=== PATIENT | male | born 1980 | race Two or more races ===

== ENCOUNTER 2016-06-25 11:20 | Emergency (ER) | payer MEDICARE, MEDICAID ==
[~2016-06-25] VITALS: Ht 180.3 cm; Wt 81.5 kg
[~2016-06-25 11:20] MED LIST: BECL8.7A6 IH; OLAN15TA5 PO; SERT50TA12 PO; TRAZ-144 PO
[2016-06-25 11:27] VITALS: BP 100/73
== END 2016-06-25 12:33 | disposition left against medical advice (07) ==
LOC: EMS 11:22
DX: M79.671 Pain in right foot (principal); Z53.21 Procedure and treatment not carried out due to patient leaving prior to being seen by health care provider

== ENCOUNTER 2016-06-27 09:34 | Inpatient (IN) | payer MEDICARE, MEDICAID ==
[~2016-06-27] VITALS: Ht 179.1 cm; Wt 82.1 kg
[2016-06-27 09:41] VITALS: BP 148/81
[2016-06-27] MEDS ORDERED: ZOLPIDEM TARTRATE 10 MG TABLET PO PRN (10:30)
[2016-06-27] MEDS ORDERED: OLANZapine 5 MG RAPDIS TABLET PO PRN (10:30)
[2016-06-27] MEDS ORDERED: OLAN5Z PO (10:40)
[2016-06-27] MEDS ORDERED: TRAZ-144 PO (10:40)
[2016-06-27] MEDS ORDERED: SERT50TA12 PO (10:40)
[2016-06-27] MEDS: LORazepam 2 MG TABLET PO PRN ×2 (11:10→15:52)
[2016-06-27] MEDS: SERTRALINE HCL 50 MG TABLET PO SCH (11:10)
[2016-06-27] MEDS: NICOTINE 14 MG/24 HOUR PATCH TD SCH (15:09)
[2016-06-27 15:50] VITALS: BP 114/75
[2016-06-27] MEDS: ALBUTEROL SULFATE HFA 90 MCG/PUFF 8 GM INHALER IH PRN (15:57)
[2016-06-27 16:05] VITALS: BP 114/75
[2016-06-27] MEDS: TraZODone HCL 50 MG TABLET PO SCH (20:36)
[2016-06-27] MEDS: OLANZapine 5 MG RAPDIS TABLET PO SCH (20:36)
[2016-06-27] MEDS ORDERED: OLANZapine 5 MG RAPDIS TABLET PO SCH (21:00)
[2016-06-28] MEDS ORDERED: -PHARMACY VACCINE NOTE- MISC ONE ×2 (04:30)
[2016-06-28 07:10] VITALS: BP 105/63
[2016-06-28 07:52] LABS: BASOPHILS % (AUTO) 0.3 % (0.0-2.0); EOSINOPHILS % (AUTO) 3.5 % (1.0-6.0); HEMATOCRIT 45.2 % (41-53); LYMPHOCYTES # (AUTO) 2.3 K/uL (1.0-4.8); LYMPHOCYTES % (AUTO) 20.3 % (22.0-44.0); MEAN CORPUSCULAR HEMOGLOBIN 30.3 pg (26.0-34.0); MEAN CORPUSCULAR HGB CONC 33.1 G/dL (31.0-37.0); MEAN CORPUSCULAR VOLUME 92 fL (80-100); MONOCYTES # (AUTO) 0.7 K/uL (0.1-1.0); MONOCYTES % (AUTO) 5.8 % (2.0-9.0); NEUTROPHILS # (AUTO) 7.9 K/uL (1.8-7.7); NEUTROPHILS % (AUTO) 70.1 % (40.0-70.0); PLATELET COUNT (AUTO) 325 K/uL (150-450); RED BLOOD CELL COUNT(AUTO) 4.94 MIL/uL (4.50-5.90); RED CELL DISTRIBUTION WIDTH 13.4 % (11.5-14.5); WHITE BLOOD COUNT (AUTO) 11.2 K/uL (4.5-11.0)
[2016-06-28 08:13] LABS: ALANINE AMINOTRANSFERASE 20 U/L (12-78); ALBUMIN 3.5 g/dL (3.4-5.0); ANION GAP 8 mmol/L (8-16); ASPARTATE AMINOTRANSFERASE 13 U/L (15-37); BILIRUBIN,TOTAL 0.3 mg/dL (0.1-1.0); CALCIUM, TOTAL 8.7 mg/dL (8.8-10.5); CARBON DIOXIDE 28 mmol/L (22-29); CHLORIDE 104 mmol/L (98-107); CREATININE 0.79 mg/dL (0.60-1.30); GLOMERULAR FILTR. RATE CALC > 60 mL/min (>60); SODIUM SERUM 140 mmol/L (136-145); TOTAL PROTEIN, SERUM 6.6 g/dL (6.4-8.2); UREA NITROGEN, BLOOD 6 mg/dL (7-18)
[2016-06-28] MEDS ORDERED: ONDANSETRON HCL 4 MG TABLET PO PRN (08:30)
[2016-06-28] MEDS ORDERED: LOPERAMIDE HCL 2 MG CAPSULE PO PRN (08:30)
[2016-06-28] MEDS ORDERED: ACETAMINOPHEN 325 MG TABLET PO PRN (08:30)
[2016-06-28] MEDS ORDERED: PETROLATUM,WHITE 71 GM JELLY TP PRN (08:30)
[2016-06-28] MEDS ORDERED: MAG HYDROX/AL HYDROX/SIMETH ES 30 ML SUSPENSION UDCUP PO PRN (08:30)
[2016-06-28] MEDS ORDERED: BENZOCAINE/MENTHOL LOZENGE MM PRN (08:30)
[2016-06-28] MEDS ORDERED: CloNIDine HCL 0.1 MG TABLET PO PRN (08:30)
[2016-06-28] MEDS ORDERED: BACITRACIN 28.4 GM OINTMENT TP PRN (08:30)
[2016-06-28] MEDS ORDERED: MAGNESIUM HYDROXIDE SUSPENSION 30 ML UDCUP PO PRN (08:30)
[2016-06-28] MEDS ORDERED: IBUPROFEN 600 MG TABLET PO PRN (08:30)
[2016-06-28 08:38] VITALS: BP 104/60
[2016-06-28] MEDS: BECLOMETHASONE DIPR 40 MCG/PUFF 8.7 GM INHALER IH SCH ×2 (09:00→17:06)
[2016-06-28] MEDS: NICOTINE 14 MG/24 HOUR PATCH TD SCH (09:27)
[2016-06-28] MEDS: SERTRALINE HCL 50 MG TABLET PO SCH (09:27)
[2016-06-28 09:32] LABS: APPEARANCE,URINE CLEAR (CLEAR); GLUCOSE, URINE (UA) NEGATIVE (NEGATIVE); KETONES,URINE NEGATIVE (NEGATIVE); LEUKOCYTE ESTERASE ,URINE NEGATIVE (NEGATIVE); OCCULT BLOOD,URINE NEGATIVE (NEGATIVE); PH,URINE 7.5 (5.0-8.0); PROTEIN,URINE NEGATIVE (NEGATIVE)
[2016-06-28] MEDS: CHOLECALCIFEROL (VIT D3) 1,000 UNITS TABLET PO SCH (09:33)
[2016-06-28 09:38] LABS: ADD UA MICROSCOPIC NO
[2016-06-28 16:14] VITALS: BP 127/66
[2016-06-28] MEDS: TraZODone HCL 50 MG TABLET PO SCH (20:51)
[2016-06-28] MEDS: OLANZapine 5 MG RAPDIS TABLET PO SCH (20:51)
[2016-06-29 07:08] VITALS: BP 105/66
[2016-06-29 08:37] VITALS: BP 101/62
[2016-06-29] MEDS: SERTRALINE HCL 50 MG TABLET PO SCH (09:57)
[2016-06-29] MEDS: CHOLECALCIFEROL (VIT D3) 1,000 UNITS TABLET PO SCH (09:57)
[2016-06-29] MEDS: BECLOMETHASONE DIPR 40 MCG/PUFF 8.7 GM INHALER IH SCH ×2 (09:57→17:05)
[2016-06-29] MEDS: NICOTINE 14 MG/24 HOUR PATCH TD SCH (10:08)
[2016-06-29 16:12] VITALS: BP 107/57
[2016-06-29] MEDS: TraZODone HCL 50 MG TABLET PO SCH (20:51)
[2016-06-29] MEDS: OLANZapine 5 MG RAPDIS TABLET PO SCH (20:52)
[2016-06-30 05:54] VITALS: BP 101/65
[2016-06-30 09:28] VITALS: BP 96/60
[2016-06-30] MEDS: NICOTINE 14 MG/24 HOUR PATCH TD SCH (09:35)
[2016-06-30] MEDS: SERTRALINE HCL 50 MG TABLET PO SCH (09:35)
[2016-06-30] MEDS: BECLOMETHASONE DIPR 40 MCG/PUFF 8.7 GM INHALER IH SCH ×2 (09:35→16:25)
[2016-06-30] MEDS: CHOLECALCIFEROL (VIT D3) 1,000 UNITS TABLET PO SCH (09:35)
[2016-06-30] MEDS: ALBUTEROL SULFATE HFA 90 MCG/PUFF 8 GM INHALER IH PRN (11:20)
[2016-06-30 16:20] VITALS: BP 117/84
[2016-06-30 17:37] VITALS: BP 100/65
[2016-06-30] MEDS: TraZODone HCL 50 MG TABLET PO SCH (20:17)
[2016-06-30] MEDS: OLANZapine 5 MG RAPDIS TABLET PO SCH (20:17)
[2016-07-01 03:05] VITALS: BP 105/61
[2016-07-01 08:28] VITALS: BP 104/65
[2016-07-01] MEDS: CHOLECALCIFEROL (VIT D3) 1,000 UNITS TABLET PO SCH (09:43)
[2016-07-01] MEDS: BECLOMETHASONE DIPR 40 MCG/PUFF 8.7 GM INHALER IH SCH (09:43)
[2016-07-01] MEDS: SERTRALINE HCL 50 MG TABLET PO SCH (09:43)
[2016-07-01] MEDS: NICOTINE 14 MG/24 HOUR PATCH TD SCH (09:47)
== END 2016-07-01 10:10 | disposition home or self-care (01) | DRG 885 ==
LOC: B2S 10:26
DX: F25.1 Schizoaffective disorder, depressive type (principal); R45.851 Suicidal ideations; J45.909 Unspecified asthma, uncomplicated; J44.9 Chronic obstructive pulmonary disease, unspecified; K21.9 Gastro-esophageal reflux disease without esophagitis; K59.00 Constipation, unspecified; E55.9 Vitamin D deficiency, unspecified; F15.10 Other stimulant abuse, uncomplicated; F17.200 Nicotine dependence, unspecified, uncomplicated; Z71.51 Drug abuse counseling and surveillance of drug abuser; Z71.6 Tobacco abuse counseling; Z91.5 Personal history of self-harm
CPT/HCPCS: 80307; 87081; J3535

== ENCOUNTER 2016-07-28 08:57 | Inpatient (IN) | payer MEDICARE, MEDICAID ==
[~2016-07-28] VITALS: Ht 177.8 cm; Wt 82.6 kg
[2016-07-28 11:43] VITALS: BP 119/68
[2016-07-28] MEDS ORDERED: HALOPERIDOL 5 MG TABLET PO PRN (13:15)
[2016-07-28] MEDS ORDERED: ZOLPIDEM TARTRATE 10 MG TABLET PO PRN (13:15)
[2016-07-28] MEDS ORDERED: OLAN5Z PO (13:40)
[2016-07-28] MEDS ORDERED: -PHARMACY VACCINE NOTE- MISC ONE ×2 (13:45)
[2016-07-28 14:39] VITALS: BP 106/66
[2016-07-28] MEDS: LORazepam 2 MG TABLET PO PRN (14:46)
[2016-07-28 16:09] VITALS: BP 112/60
[2016-07-28] MEDS: TraZODone HCL 50 MG TABLET PO SCH (20:32)
[2016-07-28] MEDS ORDERED: OLANZapine 5 MG RAPDIS TABLET PO SCH (21:00)
[2016-07-29] VITALS: BP 101/71
[2016-07-29 07:36] LABS: BASOPHILS # (AUTO) 0.04 K/uL (0.00-0.20); BASOPHILS % (AUTO) 0.4 % (0.0-2.0); EOSINOPHILS # (AUTO) 0.24 K/uL (0.00-0.70); EOSINOPHILS % (AUTO) 2.46 % (1.0-6.0); HEMATOCRIT 42.9 % (41-53); HEMOGLOBIN 14.6 g/dL (13.5-17.5); LYMPHOCYTES # (AUTO) 2.1 K/uL (1.0-4.8); LYMPHOCYTES % (AUTO) 21.2 % (22.0-44.0); MEAN CORPUSCULAR HEMOGLOBIN 30.7 pg (26.0-34.0); MEAN CORPUSCULAR HGB CONC 34.1 G/dL (31.0-37.0); MEAN CORPUSCULAR VOLUME 90 fL (80-100); MONOCYTES # (AUTO) 0.7 K/uL (0.1-1.0); MONOCYTES % (AUTO) 7.2 % (2.0-9.0); NEUTROPHILS # (AUTO) 6.8 K/uL (1.8-7.7); NEUTROPHILS % (AUTO) 68.8 % (40.0-70.0); PLATELET COUNT (AUTO) 304 K/uL (150-450); RED BLOOD CELL COUNT(AUTO) 4.76 MIL/uL (4.50-5.90); RED CELL DISTRIBUTION WIDTH 13.5 % (11.5-14.5); WHITE BLOOD COUNT (AUTO) 9.9 K/uL (4.5-11.0)
[2016-07-29 08:01] VITALS: BP 108/68
[2016-07-29 08:17] LABS: ALANINE AMINOTRANSFERASE 20 U/L (12-78); ALBUMIN 3.3 g/dL (3.4-5.0); ANION GAP 8 mmol/L (8-16); ASPARTATE AMINOTRANSFERASE 15 U/L (15-37); BILIRUBIN,TOTAL 0.4 mg/dL (0.1-1.0); CALCIUM, TOTAL 8.6 mg/dL (8.8-10.5); CARBON DIOXIDE 27 mmol/L (22-29); CHLORIDE 107 mmol/L (98-107); CHOL/HDL RATIO 3.4 (4.2-7.3); CREATININE 0.84 mg/dL (0.60-1.30); GLOMERULAR FILTR. RATE CALC > 60 mL/min (>60); POTASSIUM 3.9 mmol/L (3.5-5.1); SODIUM SERUM 142 mmol/L (136-145); TOTAL PROTEIN, SERUM 6.3 g/dL (6.4-8.2); UREA NITROGEN, BLOOD 7 mg/dL (7-18)
[2016-07-29] MEDS: SERTRALINE HCL 50 MG TABLET PO SCH (09:20)
[2016-07-29 16:12] VITALS: BP 102/65
[2016-07-29] MEDS: OLANZapine 7.5 MG TABLET PO SCH (20:40)
[2016-07-29] MEDS: TraZODone HCL 50 MG TABLET PO SCH (20:40)
[2016-07-30 00:29] VITALS: BP 99/60
[2016-07-30 08:24] VITALS: BP 100/59
[2016-07-30] MEDS: SERTRALINE HCL 50 MG TABLET PO SCH (09:17)
[2016-07-30 16:49] VITALS: BP 105/64
[2016-07-30] MEDS: OLANZapine 7.5 MG TABLET PO SCH (20:39)
[2016-07-30] MEDS: TraZODone HCL 50 MG TABLET PO SCH (20:39)
[2016-07-31 05:19] VITALS: BP 111/72
[2016-07-31 08:27] VITALS: BP 100/62
[2016-07-31] MEDS: SERTRALINE HCL 50 MG TABLET PO SCH (09:28)
[2016-07-31] MEDS: ALBUTEROL SULFATE HFA 90 MCG/PUFF 8 GM INHALER IH PRN (15:54)
[2016-07-31 16:17] VITALS: BP 113/65
[2016-07-31] MEDS: TraZODone HCL 50 MG TABLET PO SCH (20:36)
[2016-07-31] MEDS: OLANZapine 7.5 MG TABLET PO SCH (20:36)
[2016-08-01 06:01] VITALS: BP 106/60
[2016-08-01 08:17] VITALS: BP 100/60
[2016-08-01] MEDS: NICOTINE 21 MG/24 HOUR PATCH TD SCH (09:10)
[2016-08-01] MEDS: SERTRALINE HCL 50 MG TABLET PO SCH (09:10)
[2016-08-01] MEDS: ALBUTEROL SULFATE HFA 90 MCG/PUFF 8 GM INHALER IH PRN (13:08)
[2016-08-01 16:11] VITALS: BP 107/62
[2016-08-01] MEDS: OLANZapine 7.5 MG TABLET PO SCH (20:36)
[2016-08-01] MEDS: TraZODone HCL 50 MG TABLET PO SCH (20:36)
[2016-08-02 00:21] VITALS: BP 105/67
[2016-08-02 08:06] VITALS: BP 100/60
[2016-08-02] MEDS: SERTRALINE HCL 50 MG TABLET PO SCH (09:12)
[2016-08-02] MEDS: NICOTINE 21 MG/24 HOUR PATCH TD SCH (09:13)
[2016-08-02] MEDS: LORazepam 2 MG TABLET PO PRN (14:06)
[2016-08-02 16:07] VITALS: BP 114/73
[2016-08-02] MEDS: OLANZapine 7.5 MG TABLET PO SCH (20:35)
[2016-08-02] MEDS: TraZODone HCL 50 MG TABLET PO SCH (20:35)
[2016-08-03 00:42] VITALS: BP 108/61
[2016-08-03] MEDS ORDERED: OLAN7.5T2 PO (03:47)
[2016-08-03] MEDS ORDERED: NICO21T TD ×2 (05:40→05:41)
[2016-08-03] MEDS ORDERED: ALBU8HFA4 IH (05:46)
== END 2016-08-03 06:35 | disposition home or self-care (01) | DRG 885 ==
LOC: B2X 12:30 → EDSTATUS 13:35
DX: F25.1 Schizoaffective disorder, depressive type (principal); R45.851 Suicidal ideations; J45.909 Unspecified asthma, uncomplicated; L72.9 Follicular cyst of the skin and subcutaneous tissue, unspecified; F15.90 Other stimulant use, unspecified, uncomplicated; Z71.51 Drug abuse counseling and surveillance of drug abuser; Z91.5 Personal history of self-harm
CPT/HCPCS: 84439; 84443; 87081; J3535

== ENCOUNTER 2016-09-19 19:15 | Inpatient (IN) | payer MEDICARE, MEDICAID ==
[~2016-09-19] VITALS: Ht 177.8 cm; Wt 90.1 kg
[~2016-09-19 19:15] MED LIST changes: +ALBU8HFA4 IH; -BECL8.7A6 IH; +NICO21T TD; -OLAN15TA5 PO; +OLAN7.5T2 PO
[2016-09-19] MEDS ORDERED: ZOLPIDEM TARTRATE 10 MG TABLET PO PRN (20:30)
[2016-09-19] MEDS ORDERED: LORazepam 2 MG TABLET PO PRN (20:30)
[2016-09-19] MEDS ORDERED: HALOPERIDOL 5 MG TABLET PO PRN (20:30)
[2016-09-19 21:18] VITALS: BP 110/65
[2016-09-20 06:00] VITALS: BP 108/61
[2016-09-20 08:31] LABS: BASOPHILS # (AUTO) 0.05 K/uL (0.00-0.20); BASOPHILS % (AUTO) 0.4 % (0.0-2.0); EOSINOPHILS # (AUTO) 0.58 K/uL (0.00-0.70); EOSINOPHILS % (AUTO) 4.79 % (1.0-6.0); HEMOGLOBIN 13.9 g/dL (13.5-17.5); LYMPHOCYTES # (AUTO) 2.3 K/uL (1.0-4.8); LYMPHOCYTES % (AUTO) 19.2 % (22.0-44.0); MEAN CORPUSCULAR HEMOGLOBIN 30.2 pg (26.0-34.0); MEAN CORPUSCULAR VOLUME 91 fL (80-100); MONOCYTES # (AUTO) 1.1 K/uL (0.1-1.0); MONOCYTES % (AUTO) 8.6 % (2.0-9.0); NEUTROPHILS # (AUTO) 8.1 K/uL (1.8-7.7); PLATELET COUNT (AUTO) 302 K/uL (150-450); RED CELL DISTRIBUTION WIDTH 13.8 % (11.5-14.5); WHITE BLOOD COUNT (AUTO) 12.2 K/uL (4.5-11.0)
[2016-09-20 09:17] LABS: HEMOGLOBIN A1C 5.8 % (4.5-6.2)
[2016-09-20] MEDS: NICOTINE 21 MG/24 HOUR PATCH TD SCH (09:57)
[2016-09-20 10:11] LABS: ALANINE AMINOTRANSFERASE 25 U/L (12-78); ALBUMIN 3.1 g/dL (3.4-5.0); ANION GAP 6 mmol/L (8-16); ASPARTATE AMINOTRANSFERASE 13 U/L (15-37); BILIRUBIN,TOTAL 0.3 mg/dL (0.1-1.0); CALCIUM, TOTAL 8.3 mg/dL (8.8-10.5); CARBON DIOXIDE 29 mmol/L (22-29); CHLORIDE 108 mmol/L (98-107); CHOL/HDL RATIO 4.1 (4.2-7.3); CREATININE 0.72 mg/dL (0.60-1.30); GLOMERULAR FILTR. RATE CALC > 60 mL/min (>60); POTASSIUM 4.4 mmol/L (3.5-5.1); SODIUM SERUM 143 mmol/L (136-145); THYROID STIMULATING HORMONE 0.76 uIU/mL (0.36-3.74); TOTAL PROTEIN, SERUM 5.7 g/dL (6.4-8.2); UREA NITROGEN, BLOOD 10 mg/dL (7-18)
[2016-09-20] MEDS: SERTRALINE HCL 50 MG TABLET PO SCH (10:12)
[2016-09-20 13:54] VITALS: BP 98/59
[2016-09-20 16:19] VITALS: BP 101/59
[2016-09-20] MEDS: TraZODone HCL 50 MG TABLET PO SCH (20:02)
[2016-09-20] MEDS: OLANZapine 7.5 MG TABLET PO SCH (20:03)
[2016-09-20] MEDS ORDERED: ALBUTEROL SULFATE HFA 90 MCG/PUFF 8 GM INHALER IH PRN (20:30)
[2016-09-21 05:56] VITALS: BP 102/62
[2016-09-21] MEDS: ALBUTEROL SULFATE HFA 90 MCG/PUFF 8 GM INHALER IH PRN ×2 (06:15→16:13)
[2016-09-21 08:26] VITALS: BP 103/60
[2016-09-21] MEDS ORDERED: OLANZAPINE PAMOATE 405 MG/2.7 ML VIAL IM SCH (09:00)
[2016-09-21] MEDS: SERTRALINE HCL 50 MG TABLET PO SCH (09:41)
[2016-09-21] MEDS: NICOTINE 21 MG/24 HOUR PATCH TD SCH (09:41)
[2016-09-21 16:15] VITALS: BP 128/75
[2016-09-21] MEDS: TraZODone HCL 50 MG TABLET PO SCH (20:36)
[2016-09-21] MEDS: OLANZapine 7.5 MG TABLET PO SCH (20:36)
[2016-09-22 00:12] VITALS: BP 103/62
[2016-09-22 08:55] VITALS: BP 104/67
[2016-09-22] MEDS: NICOTINE 21 MG/24 HOUR PATCH TD SCH (09:13)
[2016-09-22] MEDS: SERTRALINE HCL 50 MG TABLET PO SCH (09:13)
[2016-09-22] MEDS: ALBUTEROL SULFATE HFA 90 MCG/PUFF 8 GM INHALER IH PRN (15:49)
[2016-09-22 16:02] VITALS: BP 105/65
[2016-09-22] MEDS: TraZODone HCL 50 MG TABLET PO SCH (20:44)
[2016-09-22] MEDS: OLANZapine 7.5 MG TABLET PO SCH (20:44)
[2016-09-23 00:43] VITALS: BP 104/64
[2016-09-23 08:20] VITALS: BP 114/72
[2016-09-23] MEDS: NICOTINE 21 MG/24 HOUR PATCH TD SCH (08:26)
[2016-09-23] MEDS: SERTRALINE HCL 50 MG TABLET PO SCH (08:26)
== END 2016-09-23 09:45 | disposition home or self-care (01) | DRG 885 ==
LOC: B2X 20:20 → EDSTATUS 20:26
DX: F25.1 Schizoaffective disorder, depressive type (principal); R45.851 Suicidal ideations; E46 Unspecified protein-calorie malnutrition; J45.909 Unspecified asthma, uncomplicated; F15.10 Other stimulant abuse, uncomplicated; F14.10 Cocaine abuse, uncomplicated; F12.10 Cannabis abuse, uncomplicated; F19.10 Other psychoactive substance abuse, uncomplicated; Z79.899 Other long term (current) drug therapy; Z71.51 Drug abuse counseling and surveillance of drug abuser; Z91.5 Personal history of self-harm; Z59.0 Homelessness; Z68.28 Body mass index [BMI] 28.0-28.9, adult
CPT/HCPCS: 83036; 84439; 84443; J3535

== ENCOUNTER 2016-09-27 19:19 | Inpatient (IN) | payer MEDICARE, MEDICAID ==
[~2016-09-27] VITALS: Ht 177.8 cm; Wt 84.5 kg
[~2016-09-27 19:19] MED LIST changes: -NICO21T TD
[2016-09-27 19:57] VITALS: BP 106/52
[2016-09-27] MEDS ORDERED: HALOPERIDOL 5 MG TABLET PO PRN (20:15)
[2016-09-27] MEDS ORDERED: ZOLPIDEM TARTRATE 10 MG TABLET PO PRN (20:15)
[2016-09-27] MEDS ORDERED: LORazepam 2 MG TABLET PO PRN (20:15)
[2016-09-27] MEDS: TraZODone HCL 50 MG TABLET PO SCH (21:03)
[2016-09-27] MEDS: OLANZapine 7.5 MG TABLET PO SCH (21:03)
[2016-09-27] MEDS ORDERED: ACETAMINOPHEN 325 MG TABLET PO PRN (21:15)
[2016-09-27] MEDS ORDERED: IBUPROFEN 400 MG TABLET PO PRN (21:15)
[2016-09-27 21:28] VITALS: BP 110/72
[2016-09-28] VITALS: BP 112/69
[2016-09-28 07:39] LABS: BASOPHILS % (AUTO) 0.4 % (0.0-2.0); EOSINOPHILS % (AUTO) 3.6 % (1.0-6.0); HEMATOCRIT 41.5 % (41-53); HEMOGLOBIN 13.6 g/dL (13.5-17.5); LYMPHOCYTES # (AUTO) 1.9 K/uL (1.0-4.8); LYMPHOCYTES % (AUTO) 19.6 % (22.0-44.0); MEAN CORPUSCULAR HEMOGLOBIN 29.7 pg (26.0-34.0); MEAN CORPUSCULAR HGB CONC 32.8 G/dL (31.0-37.0); MEAN CORPUSCULAR VOLUME 90 fL (80-100); MONOCYTES % (AUTO) 9.6 % (2.0-9.0); NEUTROPHILS # (AUTO) 6.6 K/uL (1.8-7.7); NEUTROPHILS % (AUTO) 66.8 % (40.0-70.0); PLATELET COUNT (AUTO) 299 K/uL (150-450); RED BLOOD CELL COUNT(AUTO) 4.59 MIL/uL (4.50-5.90); RED CELL DISTRIBUTION WIDTH 13.4 % (11.5-14.5); WHITE BLOOD COUNT (AUTO) 9.9 K/uL (4.5-11.0)
[2016-09-28 07:57] LABS: ALANINE AMINOTRANSFERASE 23 U/L (12-78); ALBUMIN 3.3 g/dL (3.4-5.0); ANION GAP 11 mmol/L (8-16); ASPARTATE AMINOTRANSFERASE 17 U/L (15-37); BILIRUBIN,TOTAL 0.5 mg/dL (0.1-1.0); CALCIUM, TOTAL 8.7 mg/dL (8.8-10.5); CARBON DIOXIDE 25 mmol/L (22-29); CHLORIDE 106 mmol/L (98-107); CREATININE 0.82 mg/dL (0.60-1.30); GLOMERULAR FILTR. RATE CALC > 60 mL/min (>60); POTASSIUM 3.8 mmol/L (3.5-5.1); SODIUM SERUM 142 mmol/L (136-145); TOTAL PROTEIN, SERUM 6.2 g/dL (6.4-8.2); UREA NITROGEN, BLOOD 10 mg/dL (7-18)
[2016-09-28 08:17] VITALS: BP 86/59
[2016-09-28] MEDS: SERTRALINE HCL 50 MG TABLET PO SCH (09:18)
[2016-09-28] MEDS: NICOTINE 21 MG/24 HOUR PATCH TD SCH (09:18)
[2016-09-28 09:25] LABS: ADD UA MICROSCOPIC NO; APPEARANCE,URINE CLOUDY (CLEAR); GLUCOSE, URINE (UA) NEGATIVE (NEGATIVE); KETONES,URINE TRACE mg/dL (NEGATIVE); LEUKOCYTE ESTERASE ,URINE NEGATIVE (NEGATIVE); OCCULT BLOOD,URINE NEGATIVE (NEGATIVE); PROTEIN,URINE NEGATIVE (NEGATIVE)
[2016-09-28 14:53] VITALS: BP 93/55
[2016-09-28 16:42] VITALS: BP 100/65
[2016-09-28] MEDS: TraZODone HCL 50 MG TABLET PO SCH (20:17)
[2016-09-28] MEDS: OLANZapine 7.5 MG TABLET PO SCH (20:17)
[2016-09-29 02:16] VITALS: BP 105/69
[2016-09-29 08:24] VITALS: BP 91/50
[2016-09-29] MEDS: SERTRALINE HCL 50 MG TABLET PO SCH (08:36)
[2016-09-29] MEDS: NICOTINE 21 MG/24 HOUR PATCH TD SCH (08:37)
[2016-09-29 16:06] VITALS: BP 90/59
[2016-09-29] MEDS: ALBUTEROL SULFATE HFA 90 MCG/PUFF 8 GM INHALER IH PRN (16:54)
[2016-09-29] MEDS: TraZODone HCL 50 MG TABLET PO SCH (20:32)
[2016-09-29] MEDS: OLANZapine 7.5 MG TABLET PO SCH (20:32)
[2016-09-30 08:10] VITALS: BP 109/66
[2016-09-30] MEDS: NICOTINE 21 MG/24 HOUR PATCH TD SCH (08:19)
[2016-09-30] MEDS: SERTRALINE HCL 50 MG TABLET PO SCH (08:19)
[2016-09-30 09:00] VITALS: BP 112/68
[2016-09-30 16:00] VITALS: BP 108/67
[2016-09-30] MEDS: OLANZapine 7.5 MG TABLET PO SCH (20:26)
[2016-09-30] MEDS: TraZODone HCL 50 MG TABLET PO SCH (20:26)
[2016-10-01 00:40] VITALS: BP 101/61
[2016-10-01 08:20] VITALS: BP 129/74
[2016-10-01] MEDS: NICOTINE 21 MG/24 HOUR PATCH TD SCH (08:33)
[2016-10-01] MEDS: SERTRALINE HCL 50 MG TABLET PO SCH (08:33)
[2016-10-01 16:34] VITALS: BP 109/64
[2016-10-01] MEDS: TraZODone HCL 50 MG TABLET PO SCH (20:48)
[2016-10-01] MEDS: OLANZapine 7.5 MG TABLET PO SCH (20:48)
[2016-10-02 00:55] VITALS: BP 97/60
[2016-10-02 08:11] VITALS: BP 107/60
[2016-10-02] MEDS: SERTRALINE HCL 50 MG TABLET PO SCH (08:41)
[2016-10-02] MEDS: NICOTINE 21 MG/24 HOUR PATCH TD SCH (08:41)
[2016-10-02] MEDS: ALBUTEROL SULFATE HFA 90 MCG/PUFF 8 GM INHALER IH PRN (16:07)
[2016-10-02 16:16] VITALS: BP 102/59
[2016-10-02] MEDS: TraZODone HCL 50 MG TABLET PO SCH (21:00)
[2016-10-02] MEDS: OLANZapine 7.5 MG TABLET PO SCH (21:00)
[2016-10-03 00:20] VITALS: BP 112/64
[2016-10-03] MEDS: SERTRALINE HCL 50 MG TABLET PO SCH (08:34)
[2016-10-03] MEDS: NICOTINE 21 MG/24 HOUR PATCH TD SCH (08:34)
[2016-10-03 08:36] VITALS: BP 104/60
[2016-10-03] MEDS: ALBUTEROL SULFATE HFA 90 MCG/PUFF 8 GM INHALER IH PRN (15:47)
[2016-10-03 16:08] VITALS: BP 124/60
[2016-10-03] MEDS: TraZODone HCL 50 MG TABLET PO SCH (20:44)
[2016-10-03] MEDS: OLANZapine 7.5 MG TABLET PO SCH (20:44)
[2016-10-04 00:38] VITALS: BP 125/69
[2016-10-04 08:36] VITALS: BP 103/65
[2016-10-04] MEDS: SERTRALINE HCL 50 MG TABLET PO SCH (08:46)
[2016-10-04] MEDS: NICOTINE 21 MG/24 HOUR PATCH TD SCH (08:47)
[2016-10-04] MEDS: ALBUTEROL SULFATE HFA 90 MCG/PUFF 8 GM INHALER IH PRN (09:23)
== END 2016-10-04 20:07 | disposition home or self-care (01) | DRG 885 ==
LOC: B2X 20:07 → EDSTATUS 20:08
PROC: GZHZZZZ Group Psychotherapy (ICD-10-PCS; principal; 2016-09-28)
DX: F25.1 Schizoaffective disorder, depressive type (principal); R45.851 Suicidal ideations; F15.90 Other stimulant use, unspecified, uncomplicated; G47.00 Insomnia, unspecified; Z79.899 Other long term (current) drug therapy; Z79.51 Long term (current) use of inhaled steroids; Z71.51 Drug abuse counseling and surveillance of drug abuser
CPT/HCPCS: 87081; J3535

== ENCOUNTER 2016-11-30 16:11 | Emergency (ER) | payer MEDICARE, OTHER ==
[~2016-11-30] VITALS: Ht 177.8 cm; Wt 87.3 kg
[~2016-11-30 16:11] MED LIST changes: -ALBU8HFA4 IH; +OLAN10TA3 PO; -OLAN7.5T2 PO; +SERT100T12 PO; -SERT50TA12 PO; -TRAZ-144 PO
[2016-11-30 18:50] LABS: BASOPHILS % (AUTO) 0.3 % (0.0-2.0); EOSINOPHILS % (AUTO) 0.8 % (1.0-6.0); HEMATOCRIT 41.9 % (41-53); HEMOGLOBIN 14.6 g/dL (13.5-17.5); LYMPHOCYTES # (AUTO) 1.8 K/uL (1.0-4.8); LYMPHOCYTES % (AUTO) 12.8 % (22.0-44.0); MEAN CORPUSCULAR HEMOGLOBIN 30.9 pg (26.0-34.0); MEAN CORPUSCULAR HGB CONC 34.9 G/dL (31.0-37.0); MEAN CORPUSCULAR VOLUME 89 fL (80-100); MONOCYTES # (AUTO) 0.9 K/uL (0.1-1.0); MONOCYTES % (AUTO) 6.8 % (2.0-9.0); NEUTROPHILS % (AUTO) 79.3 % (40.0-70.0); PLATELET COUNT (AUTO) 310 K/uL (150-450); RED BLOOD CELL COUNT(AUTO) 4.73 MIL/uL (4.50-5.90); RED CELL DISTRIBUTION WIDTH 14.2 % (11.5-14.5); WHITE BLOOD COUNT (AUTO) 13.8 K/uL (4.5-11.0)
[2016-11-30 18:52] LABS: ANION GAP 8 mmol/L (8-16); CALCIUM, TOTAL 9.3 mg/dL (8.8-10.5); CARBON DIOXIDE 26 mmol/L (22-29); CHLORIDE 101 mmol/L (98-107); GLOMERULAR FILTR. RATE CALC > 60 mL/min (>60); POTASSIUM 3.7 mmol/L (3.5-5.1); SODIUM SERUM 135 mmol/L (136-145); UREA NITROGEN, BLOOD 8 mg/dL (7-18)
[2016-11-30 18:58] LABS: ALANINE AMINOTRANSFERASE 23 U/L (12-78); ALBUMIN 4.3 g/dL (3.4-5.0); ASPARTATE AMINOTRANSFERASE 22 U/L (15-37); BILIRUBIN,TOTAL 0.5 mg/dL (0.1-1.0); TOTAL PROTEIN, SERUM 7.5 g/dL (6.4-8.2)
[2016-11-30] MEDS ORDERED: LORazepam 2 MG TABLET PO ONE (19:15)
[2016-11-30 19:28] VITALS: BP 125/72
== END 2016-11-30 19:30 | disposition home or self-care (01) ==
LOC: EMS 16:13
DX: F41.9 Anxiety disorder, unspecified (principal); F15.10 Other stimulant abuse, uncomplicated; F41.0 Panic disorder [episodic paroxysmal anxiety]; J44.9 Chronic obstructive pulmonary disease, unspecified; J45.909 Unspecified asthma, uncomplicated; K21.9 Gastro-esophageal reflux disease without esophagitis; F31.9 Bipolar disorder, unspecified; F20.9 Schizophrenia, unspecified; F17.210 Nicotine dependence, cigarettes, uncomplicated
CPT/HCPCS: 36415; 80053; 80307; 85025; 99284; 99406; G0480

== ENCOUNTER 2017-01-15 21:43 | Inpatient (IN) | payer MEDICARE, MEDICAID ==
[~2017-01-15] VITALS: Ht 180.3 cm; Wt 85.4 kg
[2017-01-15 22:29] VITALS: BP 100/61
[2017-01-15] MEDS ORDERED: LORazepam 2 MG TABLET PO PRN (22:30)
[2017-01-15] MEDS ORDERED: HALOPERIDOL 5 MG TABLET PO PRN (22:30)
[2017-01-15] MEDS ORDERED: ZOLPIDEM TARTRATE 10 MG TABLET PO PRN (22:30)
[2017-01-15] MEDS ORDERED: -PHARMACY VACCINE NOTE- MISC ONE ×2 (23:45)
[2017-01-15] MEDS ORDERED: PNEUMOCOCCAL VACCINE POLYVALENT 0.5 ML VIAL [PPSV23] IM ONE (23:45)
[2017-01-15 23:52] VITALS: BP 109/56
[2017-01-16] MEDS ORDERED: ALBUTEROL SULFATE HFA 90 MCG/PUFF 8 GM INHALER IH PRN (07:15)
[2017-01-16 08:12] LABS: BASOPHILS % (AUTO) 0.3 % (0.0-2.0); HEMATOCRIT 44.3 % (41-53); HEMOGLOBIN 15.2 g/dL (13.5-17.5); LYMPHOCYTES # (AUTO) 2.7 K/uL (1.0-4.8); LYMPHOCYTES % (AUTO) 25.5 % (22.0-44.0); MEAN CORPUSCULAR HEMOGLOBIN 31.2 pg (26.0-34.0); MEAN CORPUSCULAR HGB CONC 34.2 G/dL (31.0-37.0); MEAN CORPUSCULAR VOLUME 91 fL (80-100); MONOCYTES # (AUTO) 0.8 K/uL (0.1-1.0); MONOCYTES % (AUTO) 7.4 % (2.0-9.0); NEUTROPHILS # (AUTO) 6.6 K/uL (1.8-7.7); NEUTROPHILS % (AUTO) 62.8 % (40.0-70.0); PLATELET COUNT (AUTO) 286 K/uL (150-450); RED BLOOD CELL COUNT(AUTO) 4.85 MIL/uL (4.50-5.90); RED CELL DISTRIBUTION WIDTH 13.5 % (11.5-14.5); WHITE BLOOD COUNT (AUTO) 10.5 K/uL (4.5-11.0)
[2017-01-16 08:32] LABS: HEMOGLOBIN A1C 5.6 % (4.5-6.2)
[2017-01-16 08:43] LABS: ALANINE AMINOTRANSFERASE 18 U/L (12-78); ALBUMIN 3.6 g/dL (3.4-5.0); ANION GAP 9 mmol/L (8-16); ASPARTATE AMINOTRANSFERASE 12 U/L (15-37); BILIRUBIN,TOTAL 0.3 mg/dL (0.1-1.0); CALCIUM, TOTAL 8.6 mg/dL (8.8-10.5); CARBON DIOXIDE 25 mmol/L (22-29); CHLORIDE 106 mmol/L (98-107); CHOL/HDL RATIO 5.2 (4.2-7.3); CREATININE 0.88 mg/dL (0.60-1.30); GLOMERULAR FILTR. RATE CALC > 60 mL/min (>60); POTASSIUM 3.6 mmol/L (3.5-5.1); SODIUM SERUM 140 mmol/L (136-145); THYROID STIMULATING HORMONE 0.89 uIU/mL (0.36-3.74); TOTAL PROTEIN, SERUM 6.4 g/dL (6.4-8.2); UREA NITROGEN, BLOOD 10 mg/dL (7-18)
[2017-01-16] MEDS: NICOTINE 21 MG/24 HOUR PATCH TD SCH (09:12)
[2017-01-16 09:25] VITALS: BP 106/52
[2017-01-16 16:39] VITALS: BP 105/60
[2017-01-16] MEDS: OLANZapine 10 MG TABLET PO SCH (20:36)
[2017-01-17 01:38] VITALS: BP 106/63
[2017-01-17 08:35] VITALS: BP 111/68
[2017-01-17] MEDS: SERTRALINE HCL 100 MG TABLET PO SCH (08:51)
[2017-01-17] MEDS: NICOTINE 21 MG/24 HOUR PATCH TD SCH (08:52)
[2017-01-17 16:31] VITALS: BP 106/82
[2017-01-17] MEDS: OLANZapine 10 MG TABLET PO SCH (20:34)
[2017-01-18 00:06] VITALS: BP 114/67
[2017-01-18 08:05] VITALS: BP 120/67
[2017-01-18] MEDS: SERTRALINE HCL 100 MG TABLET PO SCH (08:31)
[2017-01-18] MEDS: NICOTINE 21 MG/24 HOUR PATCH TD SCH (08:32)
[2017-01-18 16:10] VITALS: BP 118/67
[2017-01-18] MEDS: OLANZapine 10 MG TABLET PO SCH (20:24)
[2017-01-19 00:07] VITALS: BP 115/66
[2017-01-19 08:11] VITALS: BP 119/60
[2017-01-19] MEDS: NICOTINE 21 MG/24 HOUR PATCH TD SCH (08:40)
[2017-01-19] MEDS: SERTRALINE HCL 100 MG TABLET PO SCH (08:40)
== END 2017-01-19 14:50 | disposition home or self-care (01) | DRG 885 ==
LOC: EDSTATUS 22:13 → B2X 22:42
PROVIDERS: ADMIT Psychiatry & Neurology Psychiatry; ATTEND Psychiatry & Neurology Psychiatry
DX: F25.9 Schizoaffective disorder, unspecified (principal); F22 Delusional disorders; E55.9 Vitamin D deficiency, unspecified; E78.5 Hyperlipidemia, unspecified; K21.9 Gastro-esophageal reflux disease without esophagitis; K59.00 Constipation, unspecified; F15.90 Other stimulant use, unspecified, uncomplicated; Z28.21 Immunization not carried out because of patient refusal
CPT/HCPCS: 83036; 84439; 84443; 87081; 99285; J3535

== ENCOUNTER 2017-01-28 16:52 | Inpatient (IN) | payer MEDICARE, MEDICAID ==
[~2017-01-28] VITALS: Ht 179.1 cm; Wt 82.9 kg
[2017-01-28 19:10] LABS: BASOPHILS # (AUTO) 0.03 K/uL (0.00-0.20); BASOPHILS % (AUTO) 0.2 % (0.0-2.0); EOSINOPHILS % (AUTO) 1.42 % (1.0-6.0); HEMATOCRIT 43.6 % (41-53); HEMOGLOBIN 14.5 g/dL (13.5-17.5); LYMPHOCYTES # (AUTO) 2.9 K/uL (1.0-4.8); LYMPHOCYTES % (AUTO) 20.6 % (22.0-44.0); MEAN CORPUSCULAR HEMOGLOBIN 30.6 pg (26.0-34.0); MEAN CORPUSCULAR HGB CONC 33.3 G/dL (31.0-37.0); MEAN CORPUSCULAR VOLUME 92 fL (80-100); MONOCYTES # (AUTO) 0.6 K/uL (0.1-1.0); MONOCYTES % (AUTO) 4.7 % (2.0-9.0); NEUTROPHILS # (AUTO) 10.1 K/uL (1.8-7.7); NEUTROPHILS % (AUTO) 73.1 % (40.0-70.0); PLATELET COUNT (AUTO) 307 K/uL (150-450); RED BLOOD CELL COUNT(AUTO) 4.75 MIL/uL (4.50-5.90); RED CELL DISTRIBUTION WIDTH 13.2 % (11.5-14.5); WHITE BLOOD COUNT (AUTO) 13.9 K/uL (4.5-11.0)
[2017-01-28] MEDS ORDERED: HALOPERIDOL LACTATE 5 MG/ML VIAL IM ONE (19:15)
[2017-01-28] MEDS ORDERED: LORazepam 2 MG/ML VIAL IM ONE (19:15)
[2017-01-28 19:16] LABS: ANION GAP 9 mmol/L (8-16); CALCIUM, TOTAL 8.7 mg/dL (8.8-10.5); CARBON DIOXIDE 26 mmol/L (22-29); CHLORIDE 107 mmol/L (98-107); CREATININE 0.87 mg/dL (0.60-1.30); GLOMERULAR FILTR. RATE CALC > 60 mL/min (>60); POTASSIUM 3.8 mmol/L (3.5-5.1); SODIUM SERUM 142 mmol/L (136-145); UREA NITROGEN, BLOOD 8 mg/dL (7-18)
[2017-01-28 19:25] LABS: ALANINE AMINOTRANSFERASE 21 U/L (12-78); ALBUMIN 3.6 g/dL (3.4-5.0); ASPARTATE AMINOTRANSFERASE 13 U/L (15-37); BILIRUBIN,TOTAL 0.2 mg/dL (0.1-1.0); TOTAL PROTEIN, SERUM 6.6 g/dL (6.4-8.2)
[2017-01-28 22:30] VITALS: BP 117/78
[2017-01-28] MEDS ORDERED: HALOPERIDOL 5 MG TABLET PO PRN (23:45)
[2017-01-28] MEDS ORDERED: LORazepam 2 MG TABLET PO PRN (23:45)
[2017-01-28] MEDS ORDERED: ZOLPIDEM TARTRATE 10 MG TABLET PO PRN (23:45)
[2017-01-29 01:00] VITALS: BP 106/60
[2017-01-29] MEDS ORDERED: PNEUMOCOCCAL VACCINE POLYVALENT 0.5 ML VIAL [PPSV23] IM ONE (01:30)
[2017-01-29 09:02] VITALS: BP 134/89
[2017-01-29] MEDS: SERTRALINE HCL 100 MG TABLET PO SCH (09:21)
[2017-01-29] MEDS: NICOTINE 21 MG/24 HOUR PATCH TD SCH (09:21)
[2017-01-29 16:16] VITALS: BP 115/65
[2017-01-29] MEDS: OLANZapine 10 MG TABLET PO SCH (20:12)
[2017-01-30 03:30] VITALS: BP 102/63
[2017-01-30 08:11] VITALS: BP 107/66
[2017-01-30 08:15] LABS: BASOPHILS % (AUTO) 0.2 % (0.0-2.0); EOSINOPHILS % (AUTO) 2.3 % (1.0-6.0); HEMATOCRIT 44.8 % (41-53); HEMOGLOBIN 15.2 g/dL (13.5-17.5); LYMPHOCYTES # (AUTO) 2.6 K/uL (1.0-4.8); LYMPHOCYTES % (AUTO) 23.7 % (22.0-44.0); MEAN CORPUSCULAR HEMOGLOBIN 30.9 pg (26.0-34.0); MEAN CORPUSCULAR HGB CONC 33.9 G/dL (31.0-37.0); MEAN CORPUSCULAR VOLUME 91 fL (80-100); MONOCYTES # (AUTO) 0.6 K/uL (0.1-1.0); MONOCYTES % (AUTO) 5.3 % (2.0-9.0); NEUTROPHILS # (AUTO) 7.5 K/uL (1.8-7.7); NEUTROPHILS % (AUTO) 68.5 % (40.0-70.0); PLATELET COUNT (AUTO) 284 K/uL (150-450); RED BLOOD CELL COUNT(AUTO) 4.91 MIL/uL (4.50-5.90); RED CELL DISTRIBUTION WIDTH 13.1 % (11.5-14.5); WHITE BLOOD COUNT (AUTO) 10.9 K/uL (4.5-11.0)
[2017-01-30] MEDS: NICOTINE 21 MG/24 HOUR PATCH TD SCH (08:24)
[2017-01-30] MEDS: SERTRALINE HCL 100 MG TABLET PO SCH (08:24)
[2017-01-30 08:50] LABS: ANION GAP 8 mmol/L (8-16); CALCIUM, TOTAL 8.8 mg/dL (8.8-10.5); CARBON DIOXIDE 27 mmol/L (22-29); CHLORIDE 109 mmol/L (98-107); CHOL/HDL RATIO 5.4 (4.2-7.3); CREATININE 0.93 mg/dL (0.60-1.30); GLOMERULAR FILTR. RATE CALC > 60 mL/min (>60); POTASSIUM 3.6 mmol/L (3.5-5.1); SODIUM SERUM 144 mmol/L (136-145); UREA NITROGEN, BLOOD 8 mg/dL (7-18)
[2017-01-30 16:05] VITALS: BP 103/63
[2017-01-30] MEDS: ALBUTEROL SULFATE HFA 90 MCG/PUFF 8 GM INHALER IH PRN (18:46)
[2017-01-30] MEDS: OLANZapine 10 MG TABLET PO SCH (20:01)
[2017-01-31 07:11] VITALS: BP 112/65
[2017-01-31 08:22] VITALS: BP 101/61
[2017-01-31] MEDS: SERTRALINE HCL 100 MG TABLET PO SCH (08:37)
[2017-01-31] MEDS: NICOTINE 21 MG/24 HOUR PATCH TD SCH (08:37)
[2017-01-31 16:23] VITALS: BP 119/76
[2017-01-31] MEDS: OLANZapine 10 MG TABLET PO SCH (20:33)
[2017-02-01 06:58] VITALS: BP 104/62
[2017-02-01 08:10] VITALS: BP 96/52
[2017-02-01] MEDS: SERTRALINE HCL 100 MG TABLET PO SCH (08:42)
[2017-02-01] MEDS: NICOTINE 21 MG/24 HOUR PATCH TD SCH (08:42)
[2017-02-01] MEDS: ALBUTEROL SULFATE HFA 90 MCG/PUFF 8 GM INHALER IH PRN (14:33)
[2017-02-01 16:08] VITALS: BP 99/60
[2017-02-01] MEDS: OLANZapine 10 MG TABLET PO SCH (20:05)
[2017-02-02 06:47] VITALS: BP 109/63
[2017-02-02] MEDS: SERTRALINE HCL 100 MG TABLET PO SCH (08:29)
[2017-02-02] MEDS: NICOTINE 21 MG/24 HOUR PATCH TD SCH (08:33)
== END 2017-02-02 13:00 | disposition short-term general hospital (02) | DRG 885 ==
LOC: EMS 16:54 → B2X 23:19
PROVIDERS: ADMIT Psychiatry & Neurology Psychiatry; ATTEND Psychiatry & Neurology Psychiatry
PROC: 3E0234Z Introduction of Serum, Toxoid and Vaccine into Muscle, Percutaneous Approach (ICD-10-PCS; principal; 2017-01-29)
DX: F20.0 Paranoid schizophrenia (principal); E55.9 Vitamin D deficiency, unspecified; E78.5 Hyperlipidemia, unspecified; F15.90 Other stimulant use, unspecified, uncomplicated; F17.210 Nicotine dependence, cigarettes, uncomplicated; F31.9 Bipolar disorder, unspecified; J44.9 Chronic obstructive pulmonary disease, unspecified; K21.9 Gastro-esophageal reflux disease without esophagitis; K59.00 Constipation, unspecified; Z23 Encounter for immunization
CPT/HCPCS: 87081; 90471; 96372; 99285; G0480; J1630; J2060; J3535

== ENCOUNTER 2017-02-12 20:03 | Emergency (ER) | payer MEDICARE, OTHER ==
[~2017-02-12] VITALS: Ht 177.8 cm; Wt 77.3 kg
[2017-02-12 20:20] LABS: BASOPHILS % (AUTO) 0.1 % (0.0-2.0); EOSINOPHILS % (AUTO) 1.4 % (1.0-6.0); HEMATOCRIT 42.7 % (41-53); HEMOGLOBIN 14.5 g/dL (13.5-17.5); LYMPHOCYTES # (AUTO) 2.8 K/uL (1.0-4.8); LYMPHOCYTES % (AUTO) 16.7 % (22.0-44.0); MEAN CORPUSCULAR HEMOGLOBIN 30.8 pg (26.0-34.0); MEAN CORPUSCULAR HGB CONC 33.9 G/dL (31.0-37.0); MEAN CORPUSCULAR VOLUME 91 fL (80-100); MONOCYTES % (AUTO) 6.2 % (2.0-9.0); NEUTROPHILS # (AUTO) 12.9 K/uL (1.8-7.7); NEUTROPHILS % (AUTO) 75.6 % (40.0-70.0); PLATELET COUNT (AUTO) 365 K/uL (150-450); RED BLOOD CELL COUNT(AUTO) 4.71 MIL/uL (4.50-5.90); RED CELL DISTRIBUTION WIDTH 12.9 % (11.5-14.5)
[2017-02-12 20:30] LABS: ANION GAP 14 mmol/L (8-16); CALCIUM, TOTAL 9.4 mg/dL (8.8-10.5); CARBON DIOXIDE 21 mmol/L (22-29); CHLORIDE 105 mmol/L (98-107); CREATININE 0.89 mg/dL (0.60-1.30); GLOMERULAR FILTR. RATE CALC > 60 mL/min (>60); POTASSIUM 3.7 mmol/L (3.5-5.1); SODIUM SERUM 140 mmol/L (136-145); UREA NITROGEN, BLOOD 11 mg/dL (7-18)
[2017-02-12 20:33] LABS: ALANINE AMINOTRANSFERASE 24 U/L (12-78); ALBUMIN 4.3 g/dL (3.4-5.0); ASPARTATE AMINOTRANSFERASE 17 U/L (15-37); BILIRUBIN,TOTAL 0.5 mg/dL (0.1-1.0); TOTAL PROTEIN, SERUM 7.8 g/dL (6.4-8.2)
[2017-02-12] MEDS ORDERED: LORazepam 2 MG TABLET PO ONE (20:45)
[2017-02-12] MEDS ORDERED: OLANZapine 5 MG TABLET PO ONE (20:45)
[2017-02-12 21:31] VITALS: BP 126/80
== END 2017-02-12 21:34 | disposition home or self-care (01) ==
LOC: EMS 20:08
DX: F15.180 Other stimulant abuse with stimulant-induced anxiety disorder (principal); F14.10 Cocaine abuse, uncomplicated; F12.10 Cannabis abuse, uncomplicated; F29 Unspecified psychosis not due to a substance or known physiological condition; J45.909 Unspecified asthma, uncomplicated; J44.9 Chronic obstructive pulmonary disease, unspecified; K21.9 Gastro-esophageal reflux disease without esophagitis; F17.200 Nicotine dependence, unspecified, uncomplicated
CPT/HCPCS: 36415; 80053; 80307; 85025; 99284; G0480

== ENCOUNTER 2017-02-22 20:51 | Emergency (ER) | payer MEDICARE, OTHER ==
[~2017-02-22] VITALS: Ht 175.3 cm; Wt 80.0 kg
[2017-02-22] MEDS ORDERED: TRAZ-147 PO (21:02)
[2017-02-22 21:22] LABS: BASOPHILS % (AUTO) 0.3 % (0.0-2.0); EOSINOPHILS % (AUTO) 1.3 % (1.0-6.0); HEMATOCRIT 42.6 % (41-53); HEMOGLOBIN 14.6 g/dL (13.5-17.5); LYMPHOCYTES # (AUTO) 2.7 K/uL (1.0-4.8); LYMPHOCYTES % (AUTO) 19.3 % (22.0-44.0); MEAN CORPUSCULAR HEMOGLOBIN 31.2 pg (26.0-34.0); MEAN CORPUSCULAR HGB CONC 34.3 G/dL (31.0-37.0); MEAN CORPUSCULAR VOLUME 91 fL (80-100); MONOCYTES # (AUTO) 0.6 K/uL (0.1-1.0); MONOCYTES % (AUTO) 4.2 % (2.0-9.0); NEUTROPHILS # (AUTO) 10.5 K/uL (1.8-7.7); NEUTROPHILS % (AUTO) 74.9 % (40.0-70.0); PLATELET COUNT (AUTO) 343 K/uL (150-450); RED BLOOD CELL COUNT(AUTO) 4.68 MIL/uL (4.50-5.90); RED CELL DISTRIBUTION WIDTH 13.1 % (11.5-14.5)
[2017-02-22 21:28] LABS: ANION GAP 10 mmol/L (8-16); CALCIUM, TOTAL 9.2 mg/dL (8.8-10.5); CARBON DIOXIDE 28 mmol/L (22-29); CHLORIDE 101 mmol/L (98-107); GLOMERULAR FILTR. RATE CALC > 60 mL/min (>60); SODIUM SERUM 139 mmol/L (136-145); UREA NITROGEN, BLOOD 6 mg/dL (7-18)
[2017-02-22 21:33] LABS: ALANINE AMINOTRANSFERASE 19 U/L (12-78); ALBUMIN 4.1 g/dL (3.4-5.0); ASPARTATE AMINOTRANSFERASE 10 U/L (15-37); BILIRUBIN,TOTAL 0.2 mg/dL (0.1-1.0); TOTAL PROTEIN, SERUM 7.5 g/dL (6.4-8.2)
[2017-02-22] MEDS ORDERED: HALOPERIDOL 5 MG TABLET PO ONE (21:45)
[2017-02-22] MEDS ORDERED: LORazepam 1 MG TABLET PO ONE (22:15)
[2017-02-23 00:45] VITALS: BP 133/81
[2017-06-22] MEDS ORDERED: CHOL100034 PO (10:08)
[2017-06-22] MEDS ORDERED: CHOL10002 PO (12:08)
== END 2017-02-23 00:55 | disposition home or self-care (01) ==
LOC: EMS 20:54
DX: F25.9 Schizoaffective disorder, unspecified (principal); F15.10 Other stimulant abuse, uncomplicated; F17.210 Nicotine dependence, cigarettes, uncomplicated; F41.9 Anxiety disorder, unspecified; F31.9 Bipolar disorder, unspecified; K21.9 Gastro-esophageal reflux disease without esophagitis; J44.9 Chronic obstructive pulmonary disease, unspecified; F14.90 Cocaine use, unspecified, uncomplicated; F12.90 Cannabis use, unspecified, uncomplicated; F19.90 Other psychoactive substance use, unspecified, uncomplicated
CPT/HCPCS: 36415; 80053; 80307; 85025; 99284; 99406; G0480

== ENCOUNTER 2017-02-24 16:41 | Emergency (ER) | payer MEDICARE, OTHER ==
[~2017-02-24] VITALS: Ht 172.7 cm; Wt 82.7 kg
[~2017-02-24 16:41] MED LIST changes: +TRAZ-147 PO
[2017-02-24] MEDS ORDERED: HALOPERIDOL LACTATE 5 MG/ML VIAL IM ONE (17:30)
[2017-02-24] MEDS ORDERED: LORazepam 2 MG/ML VIAL IM ONE (17:30)
[2017-02-24 17:47] LABS: BASOPHILS % (AUTO) 0.3 % (0.0-2.0); EOSINOPHILS % (AUTO) 2.5 % (1.0-6.0); HEMATOCRIT 43.2 % (41-53); HEMOGLOBIN 14.4 g/dL (13.5-17.5); LYMPHOCYTES # (AUTO) 2.3 K/uL (1.0-4.8); LYMPHOCYTES % (AUTO) 20.9 % (22.0-44.0); MEAN CORPUSCULAR HEMOGLOBIN 30.5 pg (26.0-34.0); MEAN CORPUSCULAR HGB CONC 33.4 G/dL (31.0-37.0); MEAN CORPUSCULAR VOLUME 92 fL (80-100); MONOCYTES # (AUTO) 0.6 K/uL (0.1-1.0); MONOCYTES % (AUTO) 5.6 % (2.0-9.0); NEUTROPHILS # (AUTO) 7.9 K/uL (1.8-7.7); NEUTROPHILS % (AUTO) 70.7 % (40.0-70.0); PLATELET COUNT (AUTO) 325 K/uL (150-450); RED BLOOD CELL COUNT(AUTO) 4.72 MIL/uL (4.50-5.90); RED CELL DISTRIBUTION WIDTH 13.6 % (11.5-14.5); WHITE BLOOD COUNT (AUTO) 11.1 K/uL (4.5-11.0)
[2017-02-24 17:56] LABS: ANION GAP 8 mmol/L (8-16); CALCIUM, TOTAL 9.1 mg/dL (8.8-10.5); CARBON DIOXIDE 28 mmol/L (22-29); CHLORIDE 104 mmol/L (98-107); CREATININE 0.83 mg/dL (0.60-1.30); GLOMERULAR FILTR. RATE CALC > 60 mL/min (>60); POTASSIUM 4.1 mmol/L (3.5-5.1); SODIUM SERUM 140 mmol/L (136-145); UREA NITROGEN, BLOOD 7 mg/dL (7-18)
[2017-02-24 18:01] LABS: ALANINE AMINOTRANSFERASE 15 U/L (12-78); ALBUMIN 3.9 g/dL (3.4-5.0); ASPARTATE AMINOTRANSFERASE 10 U/L (15-37); BILIRUBIN,TOTAL 0.3 mg/dL (0.1-1.0); TOTAL PROTEIN, SERUM 7.1 g/dL (6.4-8.2)
[2017-02-24 20:35] VITALS: BP 109/77
[2017-06-22] MEDS ORDERED: CHOL100034 PO (10:08)
[2017-06-22] MEDS ORDERED: CHOL10002 PO (12:08)
== END 2017-02-24 21:02 | disposition home or self-care (01) ==
LOC: EMS 16:43 → EEVIPCON 16:43 → EMS 21:02
DX: F41.9 Anxiety disorder, unspecified (principal); F31.9 Bipolar disorder, unspecified; F20.9 Schizophrenia, unspecified; J45.909 Unspecified asthma, uncomplicated; J44.9 Chronic obstructive pulmonary disease, unspecified; K21.9 Gastro-esophageal reflux disease without esophagitis; F15.90 Other stimulant use, unspecified, uncomplicated; F12.90 Cannabis use, unspecified, uncomplicated; F19.90 Other psychoactive substance use, unspecified, uncomplicated; F14.90 Cocaine use, unspecified, uncomplicated; F17.210 Nicotine dependence, cigarettes, uncomplicated
CPT/HCPCS: 36415; 80053; 85025; 96372; 99284; 99406; G0480; J1630; J2060

== ENCOUNTER 2017-02-27 19:05 | Inpatient (IN) | payer MEDICARE, MEDICAID ==
[~2017-02-27] VITALS: Ht 177.8 cm; Wt 81.2 kg
[2017-02-27] MEDS ORDERED: HALOPERIDOL 5 MG TABLET PO PRN (19:30)
[2017-02-27] MEDS ORDERED: INFLUENZA VIRUS VACCINE QVS 2017-18 (3YR+)/PF 60 MCG/0.5 ML SYRINGE IM ONE (19:45)
[2017-02-27 19:51] VITALS: BP 128/75
[2017-02-27 20:00] VITALS: BP 109/60
[2017-02-27] MEDS: OLANZapine 10 MG TABLET PO SCH (21:42)
[2017-02-27] MEDS: TraZODone HCL 100 MG TABLET PO SCH (21:42)
[2017-02-28 00:13] VITALS: BP 107/67
[2017-02-28] MEDS ORDERED: -PHARMACY VACCINE NOTE- MISC ONE ×2 (02:45)
[2017-02-28 08:39] LABS: BASOPHILS % (AUTO) 0.4 % (0.0-2.0); EOSINOPHILS % (AUTO) 2.9 % (1.0-6.0); HEMATOCRIT 44.1 % (41-53); HEMOGLOBIN 14.8 g/dL (13.5-17.5); LYMPHOCYTES % (AUTO) 27.7 % (22.0-44.0); MEAN CORPUSCULAR HEMOGLOBIN 30.7 pg (26.0-34.0); MEAN CORPUSCULAR HGB CONC 33.7 G/dL (31.0-37.0); MEAN CORPUSCULAR VOLUME 91 fL (80-100); MONOCYTES # (AUTO) 0.9 K/uL (0.1-1.0); MONOCYTES % (AUTO) 7.9 % (2.0-9.0); NEUTROPHILS # (AUTO) 6.6 K/uL (1.8-7.7); NEUTROPHILS % (AUTO) 61.1 % (40.0-70.0); PLATELET COUNT (AUTO) 327 K/uL (150-450); RED BLOOD CELL COUNT(AUTO) 4.83 MIL/uL (4.50-5.90); RED CELL DISTRIBUTION WIDTH 13.5 % (11.5-14.5); WHITE BLOOD COUNT (AUTO) 10.8 K/uL (4.5-11.0)
[2017-02-28 08:50] VITALS: BP 101/64
[2017-02-28] MEDS: SERTRALINE HCL 100 MG TABLET PO SCH (09:02)
[2017-02-28] MEDS: NICOTINE 21 MG/24 HOUR PATCH TD SCH (09:03)
[2017-02-28 09:17] LABS: ALANINE AMINOTRANSFERASE 24 U/L (12-78); ALBUMIN 3.8 g/dL (3.4-5.0); ANION GAP 7 mmol/L (8-16); ASPARTATE AMINOTRANSFERASE 15 U/L (15-37); BILIRUBIN,TOTAL 0.5 mg/dL (0.1-1.0); CALCIUM, TOTAL 9.1 mg/dL (8.8-10.5); CARBON DIOXIDE 29 mmol/L (22-29); CHLORIDE 105 mmol/L (98-107); CHOL/HDL RATIO 5.3 (4.2-7.3); CREATININE 0.89 mg/dL (0.60-1.30); GLOMERULAR FILTR. RATE CALC > 60 mL/min (>60); POTASSIUM 4.3 mmol/L (3.5-5.1); SODIUM SERUM 141 mmol/L (136-145); THYROID STIMULATING HORMONE 1.08 uIU/mL (0.36-3.74); TOTAL PROTEIN, SERUM 6.7 g/dL (6.4-8.2); UREA NITROGEN, BLOOD 8 mg/dL (7-18)
[2017-02-28 09:53] LABS: HEMOGLOBIN A1C 5.9 % (4.5-6.2)
[2017-02-28 16:24] VITALS: BP 114/64
[2017-02-28] MEDS: TraZODone HCL 100 MG TABLET PO SCH (20:37)
[2017-02-28] MEDS: OLANZapine 10 MG TABLET PO SCH (20:37)
[2017-03-01 01:43] VITALS: BP 101/62
[2017-03-01 09:28] VITALS: BP 105/55
[2017-03-01] MEDS: MONTELUKAST SODIUM 10 MG TABLET PO SCH (09:39)
[2017-03-01] MEDS: SERTRALINE HCL 100 MG TABLET PO SCH (09:39)
[2017-03-01] MEDS: NICOTINE 21 MG/24 HOUR PATCH TD SCH (09:40)
[2017-03-01 11:30] VITALS: BP 110/72
[2017-03-01 16:15] VITALS: BP 105/66
[2017-03-01] MEDS: TraZODone HCL 100 MG TABLET PO SCH (20:05)
[2017-03-01] MEDS: OLANZapine 10 MG TABLET PO SCH (20:05)
[2017-03-02 06:44] VITALS: BP 107/60
[2017-03-02 08:46] VITALS: BP 109/60
[2017-03-02] MEDS: SERTRALINE HCL 100 MG TABLET PO SCH (09:17)
[2017-03-02] MEDS: MONTELUKAST SODIUM 10 MG TABLET PO SCH (09:17)
[2017-03-02] MEDS: NICOTINE 21 MG/24 HOUR PATCH TD SCH (09:18)
[2017-03-02 16:12] VITALS: BP 107/67
[2017-03-02] MEDS: TraZODone HCL 100 MG TABLET PO SCH (21:12)
[2017-03-02] MEDS: OLANZapine 10 MG TABLET PO SCH (21:12)
[2017-03-02] MEDS: ALBUTEROL SULFATE HFA 90 MCG/PUFF 8 GM INHALER IH PRN (21:12)
[2017-03-03 06:01] VITALS: BP 110/68
[2017-03-03 08:46] VITALS: BP 100/60
[2017-03-03] MEDS: MONTELUKAST SODIUM 10 MG TABLET PO SCH (08:46)
[2017-03-03] MEDS: SERTRALINE HCL 100 MG TABLET PO SCH (08:46)
[2017-03-03] MEDS: NICOTINE 21 MG/24 HOUR PATCH TD SCH (08:47)
[2017-03-03 16:32] VITALS: BP 115/67
[2017-03-03] MEDS: LORazepam 2 MG TABLET PO PRN (19:48)
[2017-03-03] MEDS: ALBUTEROL SULFATE HFA 90 MCG/PUFF 8 GM INHALER IH PRN (19:53)
[2017-03-03] MEDS: TraZODone HCL 100 MG TABLET PO SCH (20:46)
[2017-03-03] MEDS: OLANZapine 10 MG TABLET PO SCH (20:47)
[2017-03-04 00:38] VITALS: BP 105/61
[2017-03-04 08:14] VITALS: BP 100/72
[2017-03-04] MEDS: SERTRALINE HCL 100 MG TABLET PO SCH (09:07)
[2017-03-04] MEDS: NICOTINE 21 MG/24 HOUR PATCH TD SCH (09:08)
[2017-03-04] MEDS: MONTELUKAST SODIUM 10 MG TABLET PO SCH (09:08)
[2017-03-04 16:40] VITALS: BP 100/59
[2017-03-04] MEDS: TraZODone HCL 100 MG TABLET PO SCH (20:36)
[2017-03-04] MEDS: OLANZapine 10 MG TABLET PO SCH (20:37)
[2017-03-05 06:53] VITALS: BP 106/60
[2017-03-05 08:13] VITALS: BP 103/60
[2017-03-05] MEDS: MONTELUKAST SODIUM 10 MG TABLET PO SCH (09:02)
[2017-03-05] MEDS: SERTRALINE HCL 100 MG TABLET PO SCH (09:02)
[2017-03-05] MEDS: NICOTINE 21 MG/24 HOUR PATCH TD SCH (09:03)
[2017-03-05 16:19] VITALS: BP 110/65
[2017-03-05] MEDS: ALBUTEROL SULFATE HFA 90 MCG/PUFF 8 GM INHALER IH PRN (17:56)
[2017-03-05] MEDS: OLANZapine 10 MG TABLET PO SCH (20:37)
[2017-03-05] MEDS: TraZODone HCL 100 MG TABLET PO SCH (20:37)
[2017-03-06 06:12] VITALS: BP 113/62
[2017-03-06 08:52] VITALS: BP 100/60
[2017-03-06] MEDS: SERTRALINE HCL 100 MG TABLET PO SCH (09:11)
[2017-03-06] MEDS: MONTELUKAST SODIUM 10 MG TABLET PO SCH (09:11)
[2017-03-06] MEDS: NICOTINE 21 MG/24 HOUR PATCH TD SCH (09:12)
[2017-03-06] MEDS: ALBUTEROL SULFATE HFA 90 MCG/PUFF 8 GM INHALER IH PRN (13:08)
[2017-03-06 16:29] VITALS: BP 103/72
[2017-03-06] MEDS: TraZODone HCL 100 MG TABLET PO SCH (20:34)
[2017-03-06] MEDS: OLANZapine 10 MG TABLET PO SCH (20:35)
[2017-03-06] MEDS: ZOLPIDEM TARTRATE 10 MG TABLET PO PRN (21:22)
[2017-03-07 06:29] VITALS: BP 109/66
[2017-03-07 08:31] VITALS: BP 95/54
[2017-03-07] MEDS: NICOTINE 21 MG/24 HOUR PATCH TD SCH (08:33)
[2017-03-07] MEDS: SERTRALINE HCL 100 MG TABLET PO SCH (08:33)
[2017-03-07] MEDS: MONTELUKAST SODIUM 10 MG TABLET PO SCH (08:33)
[2017-03-07] MEDS ORDERED: BISACODYL 5 MG EC TABLET PO PRN (09:45)
[2017-03-07] MEDS: ALBUTEROL SULFATE HFA 90 MCG/PUFF 8 GM INHALER IH PRN (13:56)
[2017-03-07 16:21] VITALS: BP 102/62
[2017-03-07] MEDS: LORazepam 2 MG TABLET PO PRN (19:14)
[2017-03-07] MEDS: OLANZapine 10 MG TABLET PO SCH (20:00)
[2017-03-07] MEDS: TraZODone HCL 100 MG TABLET PO SCH (20:00)
[2017-03-08 05:35] VITALS: BP 112/64
[2017-03-08] MEDS: MONTELUKAST SODIUM 10 MG TABLET PO SCH (08:40)
[2017-03-08] MEDS: SERTRALINE HCL 100 MG TABLET PO SCH (08:40)
[2017-03-08] MEDS: NICOTINE 21 MG/24 HOUR PATCH TD SCH (08:41)
[2017-03-08 08:42] VITALS: BP 101/67
[2017-03-08] MEDS: ALBUTEROL SULFATE HFA 90 MCG/PUFF 8 GM INHALER IH PRN (15:38)
[2017-03-08 16:23] VITALS: BP 113/69
[2017-03-08] MEDS: LORazepam 2 MG TABLET PO PRN (18:41)
[2017-03-08] MEDS: OLANZapine 10 MG TABLET PO SCH (20:37)
[2017-03-08] MEDS: TraZODone HCL 100 MG TABLET PO SCH (20:37)
[2017-03-08] MEDS: ZOLPIDEM TARTRATE 10 MG TABLET PO PRN (21:00)
[2017-03-09 05:20] VITALS: BP 110/65
[2017-03-09 08:26] VITALS: BP 101/63
[2017-03-09] MEDS: SERTRALINE HCL 100 MG TABLET PO SCH (08:57)
[2017-03-09] MEDS: NICOTINE 21 MG/24 HOUR PATCH TD SCH (08:57)
[2017-03-09] MEDS: MONTELUKAST SODIUM 10 MG TABLET PO SCH (08:57)
[2017-03-09] MEDS ORDERED: OLAN10TA3 PO (14:02)
[2017-03-09] MEDS ORDERED: TRAZ-147 PO (14:02)
[2017-03-09] MEDS ORDERED: MONT10TA21 PO (14:07)
[2017-06-22] MEDS ORDERED: CHOL100034 PO (10:08)
[2017-06-22] MEDS ORDERED: CHOL10002 PO (12:08)
== END 2017-03-09 15:00 | disposition home or self-care (01) | DRG 885 ==
LOC: B2X 19:28 → EDSTATUS 19:34
PROVIDERS: ADMIT Psychiatry & Neurology Psychiatry; ATTEND Psychiatry & Neurology Psychiatry
PROC: 3E0234Z Introduction of Serum, Toxoid and Vaccine into Muscle, Percutaneous Approach (ICD-10-PCS; principal; 2017-02-28)
DX: F25.9 Schizoaffective disorder, unspecified (principal); D72.829 Elevated white blood cell count, unspecified; E78.5 Hyperlipidemia, unspecified; F15.90 Other stimulant use, unspecified, uncomplicated; K59.00 Constipation, unspecified; J44.9 Chronic obstructive pulmonary disease, unspecified; Z72.0 Tobacco use; Z23 Encounter for immunization; Z82.5 Family history of asthma and other chronic lower respiratory diseases
CPT/HCPCS: 83036; 84439; 84443; 87081; 90471; 99285; J3535

== ENCOUNTER 2017-03-26 10:36 | Inpatient (IN) | payer MEDICARE, MEDICAID ==
[~2017-03-26] VITALS: Ht 177.8 cm; Wt 82.7 kg
[~2017-03-26 10:36] MED LIST changes: +MONT10TA21 PO
[2017-03-26 10:38] VITALS: BP 123/77
[2017-03-26] MEDS ORDERED: ZOLPIDEM TARTRATE 10 MG TABLET PO PRN (10:45)
[2017-03-26] MEDS ORDERED: HALOPERIDOL 5 MG TABLET PO PRN (10:45)
[2017-03-26] MEDS: LORazepam 2 MG TABLET PO PRN (11:39)
[2017-03-26 11:46] VITALS: BP 147/90
[2017-03-26 11:56] VITALS: BP 147/90
[2017-03-26] MEDS ORDERED: CloNIDine HCL 0.1 MG TABLET PO PRN (12:45)
[2017-03-26] MEDS: NICOTINE 21 MG/24 HOUR PATCH TD SCH (14:10)
[2017-03-26 16:24] VITALS: BP 103/63
[2017-03-26] MEDS: TraZODone HCL 100 MG TABLET PO SCH (20:36)
[2017-03-26] MEDS: OLANZapine 10 MG TABLET PO SCH (20:36)
[2017-03-27 01:26] VITALS: BP 103/62
[2017-03-27 08:18] VITALS: BP 111/89
[2017-03-27] MEDS: SERTRALINE HCL 100 MG TABLET PO SCH (08:37)
[2017-03-27] MEDS: NICOTINE 21 MG/24 HOUR PATCH TD SCH (08:38)
[2017-03-27 08:41] LABS: BASOPHILS % (AUTO) 0.5 % (0.0-2.0); EOSINOPHILS % (AUTO) 2.6 % (1.0-6.0); HEMATOCRIT 42.8 % (41-53); HEMOGLOBIN 14.6 g/dL (13.5-17.5); LYMPHOCYTES # (AUTO) 2.2 K/uL (1.0-4.8); LYMPHOCYTES % (AUTO) 24.2 % (22.0-44.0); MEAN CORPUSCULAR HEMOGLOBIN 31.1 pg (26.0-34.0); MEAN CORPUSCULAR HGB CONC 34.2 G/dL (31.0-37.0); MEAN CORPUSCULAR VOLUME 91 fL (80-100); MONOCYTES # (AUTO) 0.6 K/uL (0.1-1.0); MONOCYTES % (AUTO) 6.8 % (2.0-9.0); NEUTROPHILS % (AUTO) 65.9 % (40.0-70.0); PLATELET COUNT (AUTO) 290 K/uL (150-450); RED CELL DISTRIBUTION WIDTH 13.3 % (11.5-14.5)
[2017-03-27 09:27] LABS: ALANINE AMINOTRANSFERASE 19 U/L (12-78); ALBUMIN 3.4 g/dL (3.4-5.0); ALKALINE PHOSPHATASE 75 U/L (46-116); ANION GAP 8 mmol/L (8-16); ASPARTATE AMINOTRANSFERASE 11 U/L (15-37); BILIRUBIN,TOTAL 0.4 mg/dL (0.1-1.0); CALCIUM, TOTAL 8.7 mg/dL (8.8-10.5); CARBON DIOXIDE 25 mmol/L (22-29); CHLORIDE 106 mmol/L (98-107); CHOLESTEROL 186 mg/dL (131-200); CREATININE 0.72 mg/dL (0.60-1.30); FREE T4 (FREE THYROXINE) 0.95 ng/dL (0.76-1.46); GLOMERULAR FILTR. RATE CALC > 60 mL/min (>60); GLUCOSE,RANDOM 83 mg/dL (70-110); HDL CHOLESTEROL 37 mg/dL (40-60); LDL CHOL (CALC.) 115 mg/dL (0-130); POTASSIUM 3.7 mmol/L (3.5-5.1); SODIUM SERUM 139 mmol/L (136-145); THYROID STIMULATING HORMONE 0.84 uIU/mL (0.36-3.74); TOTAL PROTEIN, SERUM 6.1 g/dL (6.4-8.2); TRIGLYCERIDES 171 mg/dL (15-150); UREA NITROGEN, BLOOD 8 mg/dL (7-18)
[2017-03-27 10:12] LABS: AMPHET/METH SCREEN,URINE POSITIVE (NEGATIVE); BARBITURATE SCREEN, URINE NEGATIVE (NEGATIVE); BENZODIAZEPINES SCREEN,URINE NEGATIVE (NEGATIVE); CANNABINOID SCREEN,URINE NEGATIVE (NEGATIVE); COCAINE SCREEN,URINE NEGATIVE (NEGATIVE); METHADONE SCREEN, URINE NEGATIVE (NEGATIVE); OPIATE SCREEN,URINE NEGATIVE (NEGATIVE); PHENCYCLIDINE SCREEN,URINE NEGATIVE (NEGATIVE)
[2017-03-27 10:19] LABS: HEMOGLOBIN A1C 5.7 % (4.5-6.2)
[2017-03-27 10:58] LABS: APPEARANCE,URINE CLEAR (CLEAR); BILIRUBIN,URINE NEGATIVE (NEGATIVE); GLUCOSE, URINE (UA) NEGATIVE (NEGATIVE); KETONES,URINE NEGATIVE (NEGATIVE); LEUKOCYTE ESTERASE ,URINE NEGATIVE (NEGATIVE); NITRATE,URINE NEGATIVE (NEGATIVE); OCCULT BLOOD,URINE NEGATIVE (NEGATIVE); PROTEIN,URINE NEGATIVE (NEGATIVE); UROBILINOGEN,URINE 0.2 mg/dL (<=1.0)
[2017-03-27 16:09] VITALS: BP 101/62
[2017-03-27] MEDS: TraZODone HCL 100 MG TABLET PO SCH (20:37)
[2017-03-27] MEDS: OLANZapine 10 MG TABLET PO SCH (20:38)
[2017-03-28 02:36] VITALS: BP 101/63
[2017-03-28] MEDS: MONTELUKAST SODIUM 10 MG TABLET PO SCH (08:43)
[2017-03-28] MEDS: SERTRALINE HCL 100 MG TABLET PO SCH (08:43)
[2017-03-28] MEDS: NICOTINE 21 MG/24 HOUR PATCH TD SCH (08:44)
[2017-03-28 08:45] VITALS: BP 104/60
[2017-03-28] MEDS ORDERED: BISACODYL 5 MG EC TABLET PO PRN (09:45)
[2017-03-28] MEDS: ALBUTEROL SULFATE HFA 90 MCG/PUFF 8 GM INHALER IH PRN (16:12)
[2017-03-28] MEDS: MUPIROCIN CALCIUM 2% 22 GM OINTMENT NASAL SCH (16:12)
[2017-03-28 16:13] VITALS: BP 111/64
[2017-03-28] MEDS: TraZODone HCL 100 MG TABLET PO SCH (20:40)
[2017-03-28] MEDS: OLANZapine 10 MG TABLET PO SCH (20:40)
[2017-03-29 01:34] VITALS: BP 120/71
[2017-03-29 08:25] VITALS: BP 112/63
[2017-03-29] MEDS: SERTRALINE HCL 100 MG TABLET PO SCH (08:30)
[2017-03-29] MEDS: MONTELUKAST SODIUM 10 MG TABLET PO SCH (08:31)
[2017-03-29] MEDS: MUPIROCIN CALCIUM 2% 22 GM OINTMENT NASAL SCH ×2 (08:32→16:30)
[2017-03-29] MEDS: NICOTINE 21 MG/24 HOUR PATCH TD SCH (08:32)
[2017-03-29] MEDS: ALBUTEROL SULFATE HFA 90 MCG/PUFF 8 GM INHALER IH PRN (13:55)
[2017-03-29] MEDS: LORazepam 2 MG TABLET PO PRN (14:14)
[2017-03-29 16:05] VITALS: BP 99/62
[2017-03-29] MEDS: TraZODone HCL 100 MG TABLET PO SCH (20:03)
[2017-03-29] MEDS: OLANZapine 10 MG TABLET PO SCH (20:03)
[2017-03-30 06:30] VITALS: BP 109/62
[2017-03-30 08:13] VITALS: BP 100/60
[2017-03-30] MEDS: SERTRALINE HCL 100 MG TABLET PO SCH (08:52)
[2017-03-30] MEDS: MONTELUKAST SODIUM 10 MG TABLET PO SCH (08:52)
[2017-03-30] MEDS: NICOTINE 21 MG/24 HOUR PATCH TD SCH (08:53)
[2017-03-30] MEDS: MUPIROCIN CALCIUM 2% 22 GM OINTMENT NASAL SCH ×2 (08:58→16:09)
[2017-03-30] MEDS: ALBUTEROL SULFATE HFA 90 MCG/PUFF 8 GM INHALER IH PRN (13:14)
[2017-03-30 16:08] VITALS: BP 104/61
[2017-03-30] MEDS: TraZODone HCL 100 MG TABLET PO SCH (20:22)
[2017-03-30] MEDS: OLANZapine 10 MG TABLET PO SCH (20:23)
[2017-03-31 06:16] VITALS: BP 108/60
[2017-03-31 08:24] VITALS: BP 96/60
[2017-03-31] MEDS: MONTELUKAST SODIUM 10 MG TABLET PO SCH (09:05)
[2017-03-31] MEDS: SERTRALINE HCL 100 MG TABLET PO SCH (09:05)
[2017-03-31] MEDS: MUPIROCIN CALCIUM 2% 22 GM OINTMENT NASAL SCH ×2 (09:06→16:40)
[2017-03-31] MEDS: NICOTINE 21 MG/24 HOUR PATCH TD SCH (09:06)
[2017-03-31 16:03] VITALS: BP 120/65
[2017-03-31] MEDS: LORazepam 2 MG TABLET PO PRN (18:33)
[2017-03-31] MEDS: TraZODone HCL 100 MG TABLET PO SCH (21:03)
[2017-03-31] MEDS: OLANZapine 10 MG TABLET PO SCH (21:03)
[2017-04-01 06:36] VITALS: BP 103/65
[2017-04-01 08:10] VITALS: BP 105/59
[2017-04-01] MEDS: SERTRALINE HCL 100 MG TABLET PO SCH (09:01)
[2017-04-01] MEDS: MONTELUKAST SODIUM 10 MG TABLET PO SCH (09:01)
[2017-04-01] MEDS: NICOTINE 21 MG/24 HOUR PATCH TD SCH (09:02)
[2017-04-01] MEDS: MUPIROCIN CALCIUM 2% 22 GM OINTMENT NASAL SCH ×2 (09:03→16:02)
[2017-04-01] MEDS: ALBUTEROL SULFATE HFA 90 MCG/PUFF 8 GM INHALER IH PRN (16:02)
[2017-04-01 16:03] VITALS: BP 106/63
[2017-04-01 19:00] VITALS: BP 111/66
[2017-04-01] MEDS: LORazepam 2 MG TABLET PO PRN (19:01)
[2017-04-01] MEDS: OLANZapine 10 MG TABLET PO SCH (20:17)
[2017-04-01] MEDS: TraZODone HCL 100 MG TABLET PO SCH (20:17)
[2017-04-02 06:49] VITALS: BP 105/63
[2017-04-02 08:01] VITALS: BP 108/67
[2017-04-02] MEDS: SERTRALINE HCL 100 MG TABLET PO SCH (08:52)
[2017-04-02] MEDS: MONTELUKAST SODIUM 10 MG TABLET PO SCH (08:52)
[2017-04-02] MEDS: NICOTINE 21 MG/24 HOUR PATCH TD SCH (08:53)
[2017-04-02] MEDS: MUPIROCIN CALCIUM 2% 22 GM OINTMENT NASAL SCH ×2 (08:54→16:32)
[2017-04-02] MEDS: ALBUTEROL SULFATE HFA 90 MCG/PUFF 8 GM INHALER IH PRN (10:03)
[2017-04-02] MEDS: CHOLECALCIFEROL (VIT D3) 1,000 UNITS TABLET PO SCH (14:31)
[2017-04-02 16:01] VITALS: BP 115/66
[2017-04-02] MEDS: OLANZapine 10 MG TABLET PO SCH (20:29)
[2017-04-02] MEDS: TraZODone HCL 100 MG TABLET PO SCH (20:29)
[2017-04-03 06:59] VITALS: BP 111/60
[2017-04-03 08:34] VITALS: BP 106/66
[2017-04-03] MEDS: SERTRALINE HCL 100 MG TABLET PO SCH (08:57)
[2017-04-03] MEDS: CHOLECALCIFEROL (VIT D3) 1,000 UNITS TABLET PO SCH (08:57)
[2017-04-03] MEDS: MONTELUKAST SODIUM 10 MG TABLET PO SCH (08:58)
[2017-04-03] MEDS: NICOTINE 21 MG/24 HOUR PATCH TD SCH (08:58)
[2017-06-22] MEDS ORDERED: CHOL100034 PO (10:08)
[2017-06-22] MEDS ORDERED: CHOL10002 PO (12:08)
== END 2017-04-03 13:25 | disposition home or self-care (01) | DRG 885 ==
LOC: B2X 10:43
PROVIDERS: ADMIT Psychiatry & Neurology Psychiatry; ATTEND Psychiatry & Neurology Psychiatry
DX: F20.0 Paranoid schizophrenia (principal); E55.9 Vitamin D deficiency, unspecified; E78.5 Hyperlipidemia, unspecified; F15.90 Other stimulant use, unspecified, uncomplicated; I10 Essential (primary) hypertension; J44.9 Chronic obstructive pulmonary disease, unspecified; K59.00 Constipation, unspecified; Z22.322 Carrier or suspected carrier of Methicillin resistant Staphylococcus aureus; Z72.0 Tobacco use; Z82.5 Family history of asthma and other chronic lower respiratory diseases; Z86.14 Personal history of Methicillin resistant Staphylococcus aureus infection
CPT/HCPCS: 80307; 83036; 84439; 84443; 87081; J3535

== ENCOUNTER 2017-04-25 10:06 | Inpatient (IN) | payer MEDICARE, MEDICAID ==
[~2017-04-25] VITALS: Ht 177.8 cm; Wt 80.8 kg
[2017-04-25 11:01] LABS: BASOPHILS % (AUTO) 0.3 % (0.0-2.0); EOSINOPHILS % (AUTO) 1.1 % (1.0-6.0); HEMATOCRIT 41.9 % (41-53); HEMOGLOBIN 14.4 g/dL (13.5-17.5); LYMPHOCYTES # (AUTO) 2.3 K/uL (1.0-4.8); LYMPHOCYTES % (AUTO) 15.1 % (22.0-44.0); MEAN CORPUSCULAR HEMOGLOBIN 31.1 pg (26.0-34.0); MEAN CORPUSCULAR HGB CONC 34.5 G/dL (31.0-37.0); MEAN CORPUSCULAR VOLUME 90 fL (80-100); MONOCYTES # (AUTO) 0.7 K/uL (0.1-1.0); MONOCYTES % (AUTO) 4.5 % (2.0-9.0); NEUTROPHILS # (AUTO) 12.1 K/uL (1.8-7.7); PLATELET COUNT (AUTO) 395 K/uL (150-450); RED BLOOD CELL COUNT(AUTO) 4.64 MIL/uL (4.50-5.90); RED CELL DISTRIBUTION WIDTH 13.2 % (11.5-14.5); WHITE BLOOD COUNT (AUTO) 15.3 K/uL (4.5-11.0)
[2017-04-25 11:10] LABS: ANION GAP 9 mmol/L (8-16); CALCIUM, TOTAL 9.4 mg/dL (8.8-10.5); CARBON DIOXIDE 27 mmol/L (22-29); CHLORIDE 101 mmol/L (98-107); CREATININE 0.87 mg/dL (0.60-1.30); GLOMERULAR FILTR. RATE CALC > 60 mL/min (>60); POTASSIUM 3.8 mmol/L (3.5-5.1); SODIUM SERUM 137 mmol/L (136-145); UREA NITROGEN, BLOOD 10 mg/dL (7-18)
[2017-04-25] MEDS ORDERED: OLANZapine 5 MG TABLET PO ONE (11:15)
[2017-04-25] MEDS ORDERED: LORazepam 2 MG TABLET PO ONE (11:15)
[2017-04-25 11:18] LABS: ALANINE AMINOTRANSFERASE 22 U/L (12-78); ALBUMIN 4.4 g/dL (3.4-5.0); ASPARTATE AMINOTRANSFERASE 11 U/L (15-37); BILIRUBIN,TOTAL 0.4 mg/dL (0.1-1.0); TOTAL PROTEIN, SERUM 8.2 g/dL (6.4-8.2)
[2017-04-25] MEDS ORDERED: SERTRALINE HCL 100 MG TABLET PO ONE (11:45)
[2017-04-25] MEDS ORDERED: ZOLPIDEM TARTRATE 10 MG TABLET PO PRN (11:45)
[2017-04-25 14:24] VITALS: BP 112/75
[2017-04-25 16:00] VITALS: BP 116/65
[2017-04-25] MEDS: HALOPERIDOL 5 MG TABLET PO PRN (16:44)
[2017-04-25] MEDS: LORazepam 2 MG TABLET PO PRN (16:44)
[2017-04-25] MEDS: OLANZapine 10 MG TABLET PO SCH (20:24)
[2017-04-25] MEDS: TraZODone HCL 100 MG TABLET PO SCH (20:24)
[2017-04-25] MEDS ORDERED: IBUPROFEN 400 MG TABLET PO PRN (22:15)
[2017-04-25] MEDS ORDERED: ACETAMINOPHEN 325 MG TABLET PO PRN (22:15)
[2017-04-26 07:18] LABS: BASOPHILS % (AUTO) 0.3 % (0.0-2.0); EOSINOPHILS % (AUTO) 2.7 % (1.0-6.0); HEMATOCRIT 41.8 % (41-53); HEMOGLOBIN 14.3 g/dL (13.5-17.5); LYMPHOCYTES # (AUTO) 2.2 K/uL (1.0-4.8); LYMPHOCYTES % (AUTO) 18.4 % (22.0-44.0); MEAN CORPUSCULAR HEMOGLOBIN 31.2 pg (26.0-34.0); MEAN CORPUSCULAR HGB CONC 34.2 G/dL (31.0-37.0); MEAN CORPUSCULAR VOLUME 91 fL (80-100); MONOCYTES # (AUTO) 0.7 K/uL (0.1-1.0); MONOCYTES % (AUTO) 5.4 % (2.0-9.0); NEUTROPHILS # (AUTO) 8.9 K/uL (1.8-7.7); NEUTROPHILS % (AUTO) 73.2 % (40.0-70.0); PLATELET COUNT (AUTO) 339 K/uL (150-450); RED BLOOD CELL COUNT(AUTO) 4.57 MIL/uL (4.50-5.90); RED CELL DISTRIBUTION WIDTH 13.4 % (11.5-14.5); WHITE BLOOD COUNT (AUTO) 12.1 K/uL (4.5-11.0)
[2017-04-26 07:20] VITALS: BP 122/69
[2017-04-26 07:56] LABS: CHOL/HDL RATIO 4.8 (4.2-7.3); THYROID STIMULATING HORMONE 0.45 uIU/mL (0.36-3.74)
[2017-04-26 08:14] VITALS: BP 110/69
[2017-04-26 08:16] LABS: HEMOGLOBIN A1C 5.6 % (4.5-6.2)
[2017-04-26] MEDS: MONTELUKAST SODIUM 10 MG TABLET PO SCH (08:36)
[2017-04-26] MEDS ORDERED: ACETAMINOPHEN 325 MG TABLET PO PRN (12:30)
[2017-04-26] MEDS ORDERED: IBUPROFEN 400 MG TABLET PO PRN (12:30)
[2017-04-26 16:00] VITALS: BP 114/67
[2017-04-26] MEDS: OLANZapine 10 MG TABLET PO SCH (20:35)
[2017-04-26] MEDS: TraZODone HCL 100 MG TABLET PO SCH (20:35)
[2017-04-26] MEDS: LORazepam 2 MG TABLET PO PRN (20:35)
[2017-04-27 06:21] VITALS: BP 103/67
[2017-04-27 08:00] VITALS: BP 113/69
[2017-04-27] MEDS: MONTELUKAST SODIUM 10 MG TABLET PO SCH (08:18)
[2017-04-27 16:00] VITALS: BP 108/65
[2017-04-27] MEDS: OLANZapine 10 MG TABLET PO SCH (20:23)
[2017-04-27] MEDS: TraZODone HCL 100 MG TABLET PO SCH (20:23)
[2017-04-28 06:20] VITALS: BP 111/66
[2017-04-28 08:06] VITALS: BP 110/64
[2017-04-28] MEDS: MONTELUKAST SODIUM 10 MG TABLET PO SCH (09:38)
[2017-04-28 16:00] VITALS: BP 114/67
[2017-04-28] MEDS: NICOTINE 7 MG/24 HOUR PATCH TD SCH (16:49)
[2017-04-28] MEDS: LORazepam 2 MG TABLET PO PRN (16:49)
[2017-04-28] MEDS: HALOPERIDOL 5 MG TABLET PO PRN (16:49)
[2017-04-28] MEDS: ALBUTEROL SULFATE HFA 90 MCG/PUFF 8 GM INHALER IH PRN (16:52)
[2017-04-28] MEDS: TraZODone HCL 100 MG TABLET PO SCH (20:48)
[2017-04-28] MEDS: OLANZapine 10 MG TABLET PO SCH (20:48)
[2017-04-29 06:49] VITALS: BP 110/66
[2017-04-29 08:08] VITALS: BP 101/63
[2017-04-29] MEDS: NICOTINE 7 MG/24 HOUR PATCH TD SCH (08:28)
[2017-04-29] MEDS: MONTELUKAST SODIUM 10 MG TABLET PO SCH (08:28)
[2017-04-29] MEDS: ALBUTEROL SULFATE HFA 90 MCG/PUFF 8 GM INHALER IH PRN (12:41)
[2017-04-29] MEDS: LORazepam 2 MG TABLET PO PRN (13:47)
[2017-04-29] MEDS ORDERED: NICO-800 TD (14:53)
[2017-04-29 16:16] VITALS: BP 114/85
[2017-04-29] MEDS ORDERED: MONT5TAB13 PO (16:25)
[2017-04-29] MEDS ORDERED: OLAN20TA2 PO (16:25)
[2017-06-22] MEDS ORDERED: CHOL100034 PO (10:08)
[2017-06-22] MEDS ORDERED: CHOL10002 PO (12:08)
== END 2017-04-29 19:14 | disposition home or self-care (01) | DRG 885 ==
LOC: EMS 10:08 → EEVIPCON 10:08 → B3A 12:19 → B2S 04-28 22:02
PROVIDERS: ADMIT Psychiatry & Neurology Psychiatry; ATTEND Psychiatry & Neurology Psychiatry
DX: F20.0 Paranoid schizophrenia (principal); Z91.14 Patient's other noncompliance with medication regimen; D72.829 Elevated white blood cell count, unspecified; E78.5 Hyperlipidemia, unspecified; F17.200 Nicotine dependence, unspecified, uncomplicated; I10 Essential (primary) hypertension; J44.9 Chronic obstructive pulmonary disease, unspecified; K21.9 Gastro-esophageal reflux disease without esophagitis; Z71.6 Tobacco abuse counseling
CPT/HCPCS: 83036; 84443; 87081; 99285; G0480; J3535

== ENCOUNTER 2017-05-07 16:30 | Inpatient (IN) | payer MEDICARE, MEDICAID ==
[~2017-05-07] VITALS: Ht 180.3 cm; Wt 81.2 kg
[~2017-05-07 16:30] MED LIST changes: -MONT10TA21 PO; +MONT5TAB13 PO; -OLAN10TA3 PO; +OLAN20TA2 PO; -SERT100T12 PO
[2017-05-07] MEDS ORDERED: ZOLPIDEM TARTRATE 10 MG TABLET PO PRN (17:15)
[2017-05-07] MEDS ORDERED: HALOPERIDOL 5 MG TABLET PO PRN (17:15)
[2017-05-07 17:16] VITALS: BP 121/72
[2017-05-07] MEDS: TraZODone HCL 100 MG TABLET PO SCH (20:36)
[2017-05-07] MEDS: OLANZapine 10 MG TABLET PO SCH (20:37)
[2017-05-08 06:41] VITALS: BP 104/62
[2017-05-08 08:04] LABS: BASOPHILS # (AUTO) 0.02 K/uL (0.00-0.20); BASOPHILS % (AUTO) 0.2 % (0.0-2.0); EOSINOPHILS # (AUTO) 0.29 K/uL (0.00-0.70); HEMATOCRIT 43.4 % (41-53); HEMOGLOBIN 14.3 g/dL (13.5-17.5); LYMPHOCYTES # (AUTO) 2.3 K/uL (1.0-4.8); LYMPHOCYTES % (AUTO) 23.3 % (22.0-44.0); MEAN CORPUSCULAR HEMOGLOBIN 30.3 pg (26.0-34.0); MEAN CORPUSCULAR VOLUME 92 fL (80-100); MONOCYTES # (AUTO) 0.6 K/uL (0.1-1.0); MONOCYTES % (AUTO) 6.4 % (2.0-9.0); NEUTROPHILS # (AUTO) 6.5 K/uL (1.8-7.7); NEUTROPHILS % (AUTO) 67.1 % (40.0-70.0); PLATELET COUNT (AUTO) 291 K/uL (150-450); RED BLOOD CELL COUNT(AUTO) 4.73 MIL/uL (4.50-5.90); RED CELL DISTRIBUTION WIDTH 13.5 % (11.5-14.5); WHITE BLOOD COUNT (AUTO) 9.8 K/uL (4.5-11.0)
[2017-05-08 08:21] LABS: ALANINE AMINOTRANSFERASE 17 U/L (12-78); ALBUMIN 3.4 g/dL (3.4-5.0); ANION GAP 7 mmol/L (8-16); ASPARTATE AMINOTRANSFERASE 11 U/L (15-37); BILIRUBIN,TOTAL 0.3 mg/dL (0.1-1.0); CALCIUM, TOTAL 8.9 mg/dL (8.8-10.5); CARBON DIOXIDE 27 mmol/L (22-29); CHLORIDE 106 mmol/L (98-107); CREATININE 0.95 mg/dL (0.60-1.30); GLOMERULAR FILTR. RATE CALC > 60 mL/min (>60); POTASSIUM 3.9 mmol/L (3.5-5.1); SODIUM SERUM 140 mmol/L (136-145); TOTAL PROTEIN, SERUM 6.5 g/dL (6.4-8.2); UREA NITROGEN, BLOOD 7 mg/dL (7-18)
[2017-05-08 08:44] VITALS: BP 97/58
[2017-05-08] MEDS: NICOTINE 7 MG/24 HOUR PATCH TD SCH (09:12)
[2017-05-08] MEDS: MONTELUKAST SODIUM 10 MG TABLET PO SCH (09:12)
[2017-05-08 16:00] VITALS: BP 100/60
[2017-05-08] MEDS: ALBUTEROL SULFATE HFA 90 MCG/PUFF 8 GM INHALER IH PRN (16:53)
[2017-05-08] MEDS: TraZODone HCL 100 MG TABLET PO SCH (20:13)
[2017-05-08] MEDS: OLANZapine 10 MG TABLET PO SCH (20:13)
[2017-05-09 03:04] VITALS: BP 102/60
[2017-05-09 08:00] VITALS: BP 103/60
[2017-05-09] MEDS: MONTELUKAST SODIUM 10 MG TABLET PO SCH (08:57)
[2017-05-09] MEDS: NICOTINE 7 MG/24 HOUR PATCH TD SCH (08:58)
[2017-05-09 16:00] VITALS: BP 117/70
[2017-05-09] MEDS: ALBUTEROL SULFATE HFA 90 MCG/PUFF 8 GM INHALER IH PRN (17:16)
[2017-05-09] MEDS: LORazepam 2 MG TABLET PO PRN (17:37)
[2017-05-09] MEDS: TraZODone HCL 100 MG TABLET PO SCH (20:12)
[2017-05-09] MEDS: OLANZapine 10 MG TABLET PO SCH (20:12)
[2017-05-10 00:01] VITALS: BP 102/62
[2017-05-10 08:30] VITALS: BP 103/64
[2017-05-10] MEDS: LORazepam 2 MG TABLET PO PRN (09:16)
[2017-05-10] MEDS: NICOTINE 7 MG/24 HOUR PATCH TD SCH (09:16)
[2017-05-10] MEDS: MONTELUKAST SODIUM 10 MG TABLET PO SCH (09:16)
[2017-05-10 16:00] VITALS: BP 108/66
[2017-05-10] MEDS: TraZODone HCL 100 MG TABLET PO SCH (20:06)
[2017-05-10] MEDS: OLANZapine 10 MG TABLET PO SCH (20:06)
[2017-05-11 05:21] VITALS: BP 100/60
[2017-05-11] MEDS: MONTELUKAST SODIUM 10 MG TABLET PO SCH (08:32)
[2017-05-11] MEDS: NICOTINE 7 MG/24 HOUR PATCH TD SCH (08:32)
[2017-05-11 08:35] VITALS: BP 99/52
[2017-05-11 12:03] VITALS: BP 100/60
[2017-05-11] MEDS: ALBUTEROL SULFATE HFA 90 MCG/PUFF 8 GM INHALER IH PRN (16:33)
[2017-05-11 16:43] VITALS: BP 108/68
[2017-05-11] MEDS: LORazepam 2 MG TABLET PO PRN (17:45)
[2017-05-11] MEDS: OLANZapine 10 MG TABLET PO SCH (20:02)
[2017-05-11] MEDS: TraZODone HCL 100 MG TABLET PO SCH (20:02)
[2017-05-12 00:50] VITALS: BP 101/61
[2017-05-12] MEDS: MONTELUKAST SODIUM 10 MG TABLET PO SCH (08:21)
[2017-05-12] MEDS: NICOTINE 7 MG/24 HOUR PATCH TD SCH (08:21)
[2017-05-12 08:50] VITALS: BP 100/60
[2017-05-12 09:18] LABS: THYROID STIMULATING HORMONE 1.36 uIU/mL (0.36-3.74)
[2017-05-12 16:10] VITALS: BP 114/69
[2017-05-12] MEDS: LORazepam 2 MG TABLET PO PRN (16:57)
[2017-05-12] MEDS: OLANZapine 10 MG TABLET PO SCH (20:24)
[2017-05-12] MEDS: TraZODone HCL 100 MG TABLET PO SCH (20:24)
[2017-05-13 01:29] VITALS: BP 108/60
[2017-05-13 08:43] VITALS: BP 105/60
[2017-05-13] MEDS: MONTELUKAST SODIUM 10 MG TABLET PO SCH (09:18)
[2017-05-13] MEDS: NICOTINE 7 MG/24 HOUR PATCH TD SCH (09:19)
[2017-05-13] MEDS ORDERED: MONT10TA21 PO (12:49)
[2017-06-22] MEDS ORDERED: CHOL100034 PO (10:08)
[2017-06-22] MEDS ORDERED: CHOL10002 PO (12:08)
== END 2017-05-13 15:20 | disposition home or self-care (01) | DRG 885 ==
LOC: B3A 17:14 → EDSTATUS 17:38 → B2S 05-08 11:00
PROVIDERS: ADMIT Psychiatry & Neurology Psychiatry; ATTEND Psychiatry & Neurology Psychiatry
DX: F25.1 Schizoaffective disorder, depressive type (principal); E78.5 Hyperlipidemia, unspecified; J44.9 Chronic obstructive pulmonary disease, unspecified; I10 Essential (primary) hypertension; F17.200 Nicotine dependence, unspecified, uncomplicated; Z71.6 Tobacco abuse counseling; Z79.899 Other long term (current) drug therapy
CPT/HCPCS: 84439; 84443; 87081; J3535

== ENCOUNTER 2017-05-17 18:37 | Inpatient (IN) | payer MEDICARE, MEDICAID ==
[~2017-05-17] VITALS: Ht 180.3 cm; Wt 78.5 kg
[~2017-05-17 18:37] MED LIST changes: +MONT10TA21 PO; -MONT5TAB13 PO
[2017-05-17] MEDS ORDERED: HALOPERIDOL 5 MG TABLET PO PRN (21:30)
[2017-05-17] MEDS ORDERED: LORazepam 2 MG TABLET PO PRN (21:30)
[2017-05-17] MEDS ORDERED: ZOLPIDEM TARTRATE 10 MG TABLET PO PRN (21:30)
[2017-05-17 21:36] LABS: BASOPHILS % (AUTO) 0.4 % (0.0-2.0); EOSINOPHILS % (AUTO) 2.3 % (1.0-6.0); HEMOGLOBIN 15.1 g/dL (13.5-17.5); LYMPHOCYTES # (AUTO) 3.1 K/uL (1.0-4.8); LYMPHOCYTES % (AUTO) 21.3 % (22.0-44.0); MEAN CORPUSCULAR HEMOGLOBIN 30.7 pg (26.0-34.0); MEAN CORPUSCULAR HGB CONC 34.2 G/dL (31.0-37.0); MEAN CORPUSCULAR VOLUME 90 fL (80-100); MONOCYTES # (AUTO) 0.9 K/uL (0.1-1.0); MONOCYTES % (AUTO) 6.1 % (2.0-9.0); NEUTROPHILS % (AUTO) 69.9 % (40.0-70.0); PLATELET COUNT (AUTO) 336 K/uL (150-450); WHITE BLOOD COUNT (AUTO) 14.3 K/uL (4.5-11.0)
[2017-05-17 21:46] LABS: ANION GAP 10 mmol/L (8-16); CALCIUM, TOTAL 9.7 mg/dL (8.8-10.5); CARBON DIOXIDE 27 mmol/L (22-29); CHLORIDE 101 mmol/L (98-107); CREATININE 0.84 mg/dL (0.60-1.30); GLOMERULAR FILTR. RATE CALC > 60 mL/min (>60); POTASSIUM 3.7 mmol/L (3.5-5.1); SODIUM SERUM 138 mmol/L (136-145); UREA NITROGEN, BLOOD 13 mg/dL (7-18)
[2017-05-17 21:53] LABS: ALANINE AMINOTRANSFERASE 35 U/L (12-78); ALBUMIN 4.4 g/dL (3.4-5.0); ASPARTATE AMINOTRANSFERASE 57 U/L (15-37); BILIRUBIN,TOTAL 0.8 mg/dL (0.1-1.0)
[2017-05-18 00:55] VITALS: BP 105/57
[2017-05-18 09:30] VITALS: BP 112/71
[2017-05-18] MEDS ORDERED: IBUPROFEN 400 MG TABLET PO PRN (15:15)
[2017-05-18] MEDS ORDERED: ACETAMINOPHEN 325 MG TABLET PO PRN (15:15)
[2017-05-18 18:00] VITALS: BP 95/56
[2017-05-19] MEDS: NICOTINE 14 MG/24 HOUR PATCH TD SCH (08:17)
[2017-05-19 09:33] VITALS: BP 121/56
[2017-05-19 18:00] VITALS: BP 115/66
[2017-05-19] MEDS ORDERED: OLANZapine 10 MG TABLET PO SCH (21:00)
[2017-05-19] MEDS ORDERED: TraZODone HCL 100 MG TABLET PO SCH (21:00)
[2017-05-20] MEDS: NICOTINE 14 MG/24 HOUR PATCH TD SCH (08:34)
[2017-05-20 09:17] VITALS: BP 117/50
[2017-06-22] MEDS ORDERED: CHOL100034 PO (10:08)
[2017-06-22] MEDS ORDERED: CHOL10002 PO (12:08)
== END 2017-05-20 14:20 | disposition home or self-care (01) | DRG 885 ==
LOC: EMS 18:39 → 3EX 22:12
PROVIDERS: ADMIT Psychiatry & Neurology Psychiatry; ATTEND Psychiatry & Neurology Psychiatry
DX: F25.9 Schizoaffective disorder, unspecified (principal); R45.851 Suicidal ideations; I10 Essential (primary) hypertension; J44.9 Chronic obstructive pulmonary disease, unspecified; K21.9 Gastro-esophageal reflux disease without esophagitis; F17.200 Nicotine dependence, unspecified, uncomplicated; F41.9 Anxiety disorder, unspecified; F31.9 Bipolar disorder, unspecified; J45.909 Unspecified asthma, uncomplicated; F15.99 Other stimulant use, unspecified with unspecified stimulant-induced disorder; E78.5 Hyperlipidemia, unspecified; Z79.899 Other long term (current) drug therapy
CPT/HCPCS: 87081; 99285; G0480

== ENCOUNTER 2017-05-23 21:52 | Inpatient (IN) | payer MEDICARE, MEDICAID ==
[~2017-05-23] VITALS: Ht 177.8 cm; Wt 78.6 kg
[~2017-05-23 21:52] MED LIST changes: -MONT10TA21 PO
[2017-05-23 22:20] LABS: BASOPHILS # (AUTO) 0.04 K/uL (0.00-0.20); BASOPHILS % (AUTO) 0.3 % (0.0-2.0); EOSINOPHILS # (AUTO) 0.18 K/uL (0.00-0.70); HEMATOCRIT 45.7 % (41-53); HEMOGLOBIN 15.2 g/dL (13.5-17.5); LYMPHOCYTES # (AUTO) 2.9 K/uL (1.0-4.8); LYMPHOCYTES % (AUTO) 19.5 % (22.0-44.0); MEAN CORPUSCULAR HEMOGLOBIN 30.5 pg (26.0-34.0); MEAN CORPUSCULAR HGB CONC 33.4 G/dL (31.0-37.0); MEAN CORPUSCULAR VOLUME 91 fL (80-100); MONOCYTES # (AUTO) 0.9 K/uL (0.1-1.0); NEUTROPHILS # (AUTO) 10.9 K/uL (1.8-7.7); PLATELET COUNT (AUTO) 375 K/uL (150-450); RED BLOOD CELL COUNT(AUTO) 4.99 MIL/uL (4.50-5.90); RED CELL DISTRIBUTION WIDTH 13.3 % (11.5-14.5)
[2017-05-23 22:21] LABS: ANION GAP 11 mmol/L (8-16); CALCIUM, TOTAL 9.9 mg/dL (8.8-10.5); CARBON DIOXIDE 27 mmol/L (22-29); CHLORIDE 101 mmol/L (98-107); GLOMERULAR FILTR. RATE CALC > 60 mL/min (>60); GLUCOSE,RANDOM 120 mg/dL (70-110); SODIUM SERUM 139 mmol/L (136-145); UREA NITROGEN, BLOOD 7 mg/dL (7-18)
[2017-05-23 22:27] LABS: ALANINE AMINOTRANSFERASE 26 U/L (12-78); ALBUMIN 4.8 g/dL (3.4-5.0); ALKALINE PHOSPHATASE 88 U/L (46-116); ASPARTATE AMINOTRANSFERASE 17 U/L (15-37); BILIRUBIN,TOTAL 0.4 mg/dL (0.1-1.0); TOTAL PROTEIN, SERUM 8.2 g/dL (6.4-8.2)
[2017-05-23 22:55] LABS: AMPHET/METH SCREEN,URINE POSITIVE (NEGATIVE); BARBITURATE SCREEN, URINE NEGATIVE (NEGATIVE); BENZODIAZEPINES SCREEN,URINE NEGATIVE (NEGATIVE); CANNABINOID SCREEN,URINE NEGATIVE (NEGATIVE); COCAINE SCREEN,URINE NEGATIVE (NEGATIVE); METHADONE SCREEN, URINE NEGATIVE (NEGATIVE); OPIATE SCREEN,URINE NEGATIVE (NEGATIVE)
[2017-05-23 22:57] LABS: PHENCYCLIDINE SCREEN,URINE NEGATIVE (NEGATIVE)
[2017-05-24] MEDS ORDERED: DiphenhydrAMINE HCL 25 MG CAPSULE PO ONE (01:30)
[2017-05-24] MEDS ORDERED: HALOPERIDOL 5 MG TABLET PO ONE (01:30)
[2017-05-24] MEDS ORDERED: LORazepam 2 MG TABLET PO ONE (01:30)
[2017-05-24] MEDS ORDERED: LORazepam 2 MG TABLET PO PRN (02:00)
[2017-05-24] MEDS ORDERED: ZOLPIDEM TARTRATE 10 MG TABLET PO PRN (02:00)
[2017-05-24] MEDS ORDERED: HALOPERIDOL 5 MG TABLET PO PRN (02:00)
[2017-05-24] MEDS ORDERED: LORazepam 2 MG/ML VIAL IM ONE (02:15)
[2017-05-24] MEDS ORDERED: HALOPERIDOL LACTATE 5 MG/ML VIAL IM ONE (02:15)
[2017-05-24 02:56] VITALS: BP 113/81
[2017-05-24 08:34] VITALS: BP 103/58
[2017-05-24 18:27] VITALS: BP 114/68
[2017-05-24] MEDS ORDERED: ACETAMINOPHEN 325 MG TABLET PO PRN (19:00)
[2017-05-24] MEDS ORDERED: IBUPROFEN 400 MG TABLET PO PRN (19:00)
[2017-05-25 08:40] LABS: CHOL/HDL RATIO 3.5 (4.2-7.3)
[2017-05-25 08:50] VITALS: BP 90/69
[2017-05-25 19:19] VITALS: BP 101/59
[2017-05-25] MEDS: OLANZapine 10 MG TABLET PO SCH (20:35)
[2017-05-25] MEDS: TraZODone HCL 100 MG TABLET PO SCH (20:35)
[2017-05-26 09:22] LABS: BASOPHILS # (AUTO) 0.03 K/uL (0.00-0.20); BASOPHILS % (AUTO) 0.3 % (0.0-2.0); EOSINOPHILS # (AUTO) 0.27 K/uL (0.00-0.70); EOSINOPHILS % (AUTO) 3.11 % (1.0-6.0); HEMATOCRIT 43.8 % (41-53); HEMOGLOBIN 15.1 g/dL (13.5-17.5); LYMPHOCYTES % (AUTO) 22.5 % (22.0-44.0); MEAN CORPUSCULAR HEMOGLOBIN 30.5 pg (26.0-34.0); MEAN CORPUSCULAR HGB CONC 34.5 G/dL (31.0-37.0); MEAN CORPUSCULAR VOLUME 88 fL (80-100); MONOCYTES # (AUTO) 0.6 K/uL (0.1-1.0); MONOCYTES % (AUTO) 6.5 % (2.0-9.0); NEUTROPHILS # (AUTO) 5.9 K/uL (1.8-7.7); NEUTROPHILS % (AUTO) 67.6 % (40.0-70.0); PLATELET COUNT (AUTO) 279 K/uL (150-450); RED BLOOD CELL COUNT(AUTO) 4.96 MIL/uL (4.50-5.90); RED CELL DISTRIBUTION WIDTH 13.3 % (11.5-14.5)
[2017-05-26 10:15] VITALS: BP 112/69
[2017-05-26 16:42] VITALS: BP 98/56
[2017-05-26] MEDS ORDERED: ALBUTEROL SULFATE HFA 90 MCG/PUFF 8 GM INHALER IH PRN (16:45)
[2017-05-26] MEDS: OLANZapine 10 MG TABLET PO SCH (20:41)
[2017-05-26] MEDS: TraZODone HCL 100 MG TABLET PO SCH (20:41)
[2017-05-26] MEDS: NICOTINE 21 MG/24 HOUR PATCH TD SCH (20:42)
[2017-05-27 08:48] VITALS: BP 96/64
[2017-05-27] MEDS: NICOTINE 21 MG/24 HOUR PATCH TD SCH (09:48)
[2017-06-22] MEDS ORDERED: CHOL100034 PO (10:08)
[2017-06-22] MEDS ORDERED: CHOL10002 PO (12:08)
== END 2017-05-27 16:15 | disposition home or self-care (01) | DRG 885 ==
LOC: EMS 21:55 → 3EX 05-24 02:00
PROVIDERS: ADMIT Psychiatry & Neurology Psychiatry; ATTEND Psychiatry & Neurology Psychiatry
DX: F20.0 Paranoid schizophrenia (principal); D72.829 Elevated white blood cell count, unspecified; J44.9 Chronic obstructive pulmonary disease, unspecified; I10 Essential (primary) hypertension; E78.5 Hyperlipidemia, unspecified; F19.10 Other psychoactive substance abuse, uncomplicated; F15.90 Other stimulant use, unspecified, uncomplicated; F17.210 Nicotine dependence, cigarettes, uncomplicated; F12.90 Cannabis use, unspecified, uncomplicated; F14.90 Cocaine use, unspecified, uncomplicated; Z71.51 Drug abuse counseling and surveillance of drug abuser
CPT/HCPCS: 87081; 96372; 99285; G0480; J1630; J2060; J3535

== ENCOUNTER 2017-06-06 16:10 | Inpatient (IN) | payer MEDICARE, MEDICAID ==
[~2017-06-06] VITALS: Ht 177.8 cm; Wt 78.9 kg
[2017-06-06] MEDS ORDERED: ZOLPIDEM TARTRATE 10 MG TABLET PO PRN (17:15)
[2017-06-06] MEDS ORDERED: DiphenhydrAMINE HCL 50 MG/ML VIAL IM ONE (17:15)
[2017-06-06] MEDS ORDERED: LORazepam 2 MG TABLET PO PRN (17:15)
[2017-06-06] MEDS ORDERED: HALOPERIDOL 5 MG TABLET PO PRN (17:15)
[2017-06-06] MEDS ORDERED: HALOPERIDOL LACTATE 5 MG/ML VIAL IM ONE (17:15)
[2017-06-06] MEDS ORDERED: LORazepam 2 MG/ML VIAL IM ONE (17:15)
[2017-06-06 17:19] VITALS: BP 140/80
[2017-06-06] MEDS ORDERED: LORazepam 2 MG/ML VIAL ONE (17:31)
[2017-06-06] MEDS ORDERED: HALOPERIDOL LACTATE 5 MG/ML VIAL ONE (17:31)
[2017-06-06] MEDS ORDERED: DiphenhydrAMINE HCL 50 MG/ML VIAL ONE (17:31)
[2017-06-06 17:52] VITALS: BP 119/86
[2017-06-07 06:46] VITALS: BP 101/62
[2017-06-07 07:32] LABS: BASOPHILS % (AUTO) 0.4 % (0.0-2.0); EOSINOPHILS % (AUTO) 2.6 % (1.0-6.0); HEMOGLOBIN 14.9 g/dL (13.5-17.5); LYMPHOCYTES # (AUTO) 2.4 K/uL (1.0-4.8); LYMPHOCYTES % (AUTO) 21.3 % (22.0-44.0); MEAN CORPUSCULAR HEMOGLOBIN 30.5 pg (26.0-34.0); MEAN CORPUSCULAR HGB CONC 33.8 G/dL (31.0-37.0); MEAN CORPUSCULAR VOLUME 90 fL (80-100); MONOCYTES # (AUTO) 0.9 K/uL (0.1-1.0); MONOCYTES % (AUTO) 8.4 % (2.0-9.0); NEUTROPHILS # (AUTO) 7.4 K/uL (1.8-7.7); NEUTROPHILS % (AUTO) 67.3 % (40.0-70.0); PLATELET COUNT (AUTO) 342 K/uL (150-450); RED BLOOD CELL COUNT(AUTO) 4.87 MIL/uL (4.50-5.90); RED CELL DISTRIBUTION WIDTH 13.3 % (11.5-14.5)
[2017-06-07 07:53] LABS: APPEARANCE,URINE CLEAR (CLEAR); BILIRUBIN,URINE NEGATIVE (NEGATIVE); GLUCOSE, URINE (UA) NEGATIVE (NEGATIVE); KETONES,URINE NEGATIVE (NEGATIVE); LEUKOCYTE ESTERASE ,URINE NEGATIVE (NEGATIVE); NITRATE,URINE NEGATIVE (NEGATIVE); OCCULT BLOOD,URINE NEGATIVE (NEGATIVE); PH,URINE 7.5 (5.0-8.0); PROTEIN,URINE NEGATIVE (NEGATIVE); UROBILINOGEN,URINE 0.2 mg/dL (<=1.0)
[2017-06-07 07:57] LABS: AMPHET/METH SCREEN,URINE POSITIVE (NEGATIVE); BARBITURATE SCREEN, URINE NEGATIVE (NEGATIVE); BENZODIAZEPINES SCREEN,URINE NEGATIVE (NEGATIVE); CANNABINOID SCREEN,URINE NEGATIVE (NEGATIVE); COCAINE SCREEN,URINE NEGATIVE (NEGATIVE); METHADONE SCREEN, URINE NEGATIVE (NEGATIVE); OPIATE SCREEN,URINE NEGATIVE (NEGATIVE)
[2017-06-07 07:58] LABS: PHENCYCLIDINE SCREEN,URINE NEGATIVE (NEGATIVE)
[2017-06-07 08:16] LABS: ALANINE AMINOTRANSFERASE 30 U/L (12-78); ALBUMIN 3.8 g/dL (3.4-5.0); ALKALINE PHOSPHATASE 90 U/L (46-116); ANION GAP 10 mmol/L (8-16); ASPARTATE AMINOTRANSFERASE 19 U/L (15-37); BILIRUBIN,TOTAL 0.6 mg/dL (0.1-1.0); CALCIUM, TOTAL 9.3 mg/dL (8.8-10.5); CARBON DIOXIDE 26 mmol/L (22-29); CHLORIDE 104 mmol/L (98-107); CHOL/HDL RATIO 4.6 (4.2-7.3); CHOLESTEROL 190 mg/dL (131-200); CREATININE 0.97 mg/dL (0.60-1.30); FREE T4 (FREE THYROXINE) 1.04 ng/dL (0.76-1.46); GLOMERULAR FILTR. RATE CALC > 60 mL/min (>60); GLUCOSE,RANDOM 77 mg/dL (70-110); HDL CHOLESTEROL 41 mg/dL (40-60); LDL CHOL (CALC.) 122 mg/dL (0-130); SODIUM SERUM 140 mmol/L (136-145); THYROID STIMULATING HORMONE 1.84 uIU/mL (0.36-3.74); TOTAL PROTEIN, SERUM 6.7 g/dL (6.4-8.2); TRIGLYCERIDES 136 mg/dL (15-150); UREA NITROGEN, BLOOD 7 mg/dL (7-18)
[2017-06-07 08:30] VITALS: BP 95/60
[2017-06-07] MEDS: NICOTINE 7 MG/24 HOUR PATCH TD SCH (08:39)
[2017-06-07 08:53] LABS: HEMOGLOBIN A1C 5.7 % (4.5-6.2)
[2017-06-07 16:00] VITALS: BP 103/63
[2017-06-07] MEDS ORDERED: ACETAMINOPHEN 325 MG TABLET PO PRN (17:15)
[2017-06-07] MEDS ORDERED: IBUPROFEN 400 MG TABLET PO PRN (17:15)
[2017-06-07] MEDS: TraZODone HCL 100 MG TABLET PO SCH (20:11)
[2017-06-07] MEDS: OLANZapine 10 MG TABLET PO SCH (20:12)
[2017-06-08 01:42] VITALS: BP 102/65
[2017-06-08 08:36] VITALS: BP 99/52
[2017-06-08] MEDS: NICOTINE 7 MG/24 HOUR PATCH TD SCH (08:45)
[2017-06-08 16:25] VITALS: BP 98/61
[2017-06-08] MEDS: ALBUTEROL SULFATE HFA 90 MCG/PUFF 8 GM INHALER IH PRN (16:41)
[2017-06-08] MEDS: OLANZapine 10 MG TABLET PO SCH (20:18)
[2017-06-08] MEDS: TraZODone HCL 100 MG TABLET PO SCH (20:18)
[2017-06-09 00:56] VITALS: BP 103/65
[2017-06-09 08:30] VITALS: BP 100/64
[2017-06-09] MEDS: NICOTINE 7 MG/24 HOUR PATCH TD SCH (08:35)
[2017-06-09] MEDS: ALBUTEROL SULFATE HFA 90 MCG/PUFF 8 GM INHALER IH PRN (16:02)
[2017-06-09 16:23] VITALS: BP 94/66
[2017-06-09] MEDS: OLANZapine 10 MG TABLET PO SCH (20:36)
[2017-06-09] MEDS: TraZODone HCL 100 MG TABLET PO SCH (20:36)
[2017-06-10 06:36] VITALS: BP 101/65
[2017-06-10] MEDS: NICOTINE 7 MG/24 HOUR PATCH TD SCH (08:21)
[2017-06-10 08:26] VITALS: BP 107/85
[2017-06-10] MEDS: ALBUTEROL SULFATE HFA 90 MCG/PUFF 8 GM INHALER IH PRN ×2 (13:12→19:53)
[2017-06-10 16:00] VITALS: BP 100/60
[2017-06-10] MEDS: TraZODone HCL 100 MG TABLET PO SCH (20:33)
[2017-06-10] MEDS: OLANZapine 10 MG TABLET PO SCH (20:34)
[2017-06-11 06:36] VITALS: BP 103/67
[2017-06-11 08:43] VITALS: BP 116/58
[2017-06-11] MEDS: NICOTINE 7 MG/24 HOUR PATCH TD SCH (08:56)
[2017-06-22] MEDS ORDERED: CHOL100034 PO (10:08)
[2017-06-22] MEDS ORDERED: CHOL10002 PO (12:08)
== END 2017-06-11 13:05 | disposition home or self-care (01) | DRG 885 ==
LOC: B2X 17:18
PROVIDERS: ADMIT Psychiatry & Neurology Psychiatry; ATTEND Psychiatry & Neurology Psychiatry
DX: F25.9 Schizoaffective disorder, unspecified (principal); R45.851 Suicidal ideations; E78.5 Hyperlipidemia, unspecified; J44.9 Chronic obstructive pulmonary disease, unspecified; I10 Essential (primary) hypertension; F19.10 Other psychoactive substance abuse, uncomplicated; Z79.899 Other long term (current) drug therapy
CPT/HCPCS: 80307; 83036; 84439; 84443; 87081; J1200; J1630; J2060; J3535

== ENCOUNTER 2017-06-28 10:54 | Inpatient (IN) | payer MEDICARE, MEDICAID ==
[~2017-06-28] VITALS: Ht 180.3 cm; Wt 77.5 kg
[~2017-06-28 10:54] MED LIST changes: +CHOL10002 PO
[2017-06-28 11:19] LABS: BASOPHILS % (AUTO) 0.5 % (0.0-2.0); EOSINOPHILS % (AUTO) 1.1 % (1.0-6.0); HEMATOCRIT 44.7 % (41-53); HEMOGLOBIN 15.2 g/dL (13.5-17.5); LYMPHOCYTES # (AUTO) 2.8 K/uL (1.0-4.8); LYMPHOCYTES % (AUTO) 21.1 % (22.0-44.0); MEAN CORPUSCULAR HEMOGLOBIN 30.1 pg (26.0-34.0); MEAN CORPUSCULAR HGB CONC 33.9 G/dL (31.0-37.0); MEAN CORPUSCULAR VOLUME 89 fL (80-100); MONOCYTES # (AUTO) 0.7 K/uL (0.1-1.0); MONOCYTES % (AUTO) 5.6 % (2.0-9.0); NEUTROPHILS # (AUTO) 9.6 K/uL (1.8-7.7); NEUTROPHILS % (AUTO) 71.7 % (40.0-70.0); PLATELET COUNT (AUTO) 362 K/uL (150-450); RED BLOOD CELL COUNT(AUTO) 5.05 MIL/uL (4.50-5.90); RED CELL DISTRIBUTION WIDTH 12.9 % (11.5-14.5)
[2017-06-28 11:35] LABS: ANION GAP 11 mmol/L (8-16); CALCIUM, TOTAL 9.4 mg/dL (8.8-10.5); CARBON DIOXIDE 27 mmol/L (22-29); CHLORIDE 104 mmol/L (98-107); CREATININE 0.85 mg/dL (0.60-1.30); GLOMERULAR FILTR. RATE CALC > 60 mL/min (>60); GLUCOSE,RANDOM 111 mg/dL (70-110); POTASSIUM 3.7 mmol/L (3.5-5.1); SODIUM SERUM 142 mmol/L (136-145); UREA NITROGEN, BLOOD 7 mg/dL (7-18)
[2017-06-28 11:41] LABS: ALANINE AMINOTRANSFERASE 21 U/L (12-78); ALBUMIN 4.4 g/dL (3.4-5.0); ALKALINE PHOSPHATASE 95 U/L (46-116); ASPARTATE AMINOTRANSFERASE 13 U/L (15-37); BILIRUBIN,TOTAL 0.5 mg/dL (0.1-1.0); TOTAL PROTEIN, SERUM 7.9 g/dL (6.4-8.2)
[2017-06-28] MEDS ORDERED: LORazepam 2 MG TABLET PO ONE (11:45)
[2017-06-28] MEDS ORDERED: HALOPERIDOL 5 MG TABLET PO PRN (12:30)
[2017-06-28] MEDS ORDERED: LORazepam 2 MG TABLET PO PRN (12:30)
[2017-06-28] MEDS ORDERED: ZOLPIDEM TARTRATE 10 MG TABLET PO PRN (12:30)
[2017-06-28 13:01] LABS: FREE T4 (FREE THYROXINE) 1.14 ng/dL (0.76-1.46); THYROID STIMULATING HORMONE 0.77 uIU/mL (0.36-3.74)
[2017-06-28 13:17] LABS: AMPHET/METH SCREEN,URINE POSITIVE (NEGATIVE); BARBITURATE SCREEN, URINE NEGATIVE (NEGATIVE); BENZODIAZEPINES SCREEN,URINE NEGATIVE (NEGATIVE); CANNABINOID SCREEN,URINE NEGATIVE (NEGATIVE); COCAINE SCREEN,URINE NEGATIVE (NEGATIVE); METHADONE SCREEN, URINE NEGATIVE (NEGATIVE); OPIATE SCREEN,URINE NEGATIVE (NEGATIVE)
[2017-06-28 13:19] LABS: PHENCYCLIDINE SCREEN,URINE NEGATIVE (NEGATIVE)
[2017-06-28 16:37] VITALS: BP 103/61
[2017-06-28] MEDS: OLANZapine 10 MG TABLET PO SCH (20:51)
[2017-06-28] MEDS: TraZODone HCL 100 MG TABLET PO SCH (20:51)
[2017-06-29 09:26] VITALS: BP 110/61
[2017-06-29] MEDS: CHOLECALCIFEROL (VIT D3) 1,000 UNITS TABLET PO SCH (09:55)
[2017-06-29 18:02] VITALS: BP 105/62
[2017-06-29] MEDS ORDERED: ACETAMINOPHEN 325 MG TABLET PO PRN (20:00)
[2017-06-29] MEDS ORDERED: IBUPROFEN 400 MG TABLET PO PRN (20:00)
[2017-06-29] MEDS: TraZODone HCL 100 MG TABLET PO SCH (20:53)
[2017-06-29] MEDS: OLANZapine 10 MG TABLET PO SCH (20:54)
[2017-06-30 08:00] VITALS: BP 93/51
[2017-06-30] MEDS: CHOLECALCIFEROL (VIT D3) 1,000 UNITS TABLET PO SCH (09:35)
[2017-06-30 18:30] VITALS: BP 101/61
[2017-06-30] MEDS: OLANZapine 10 MG TABLET PO SCH (21:36)
[2017-06-30] MEDS: TraZODone HCL 100 MG TABLET PO SCH (21:36)
[2017-07-01 08:45] VITALS: BP 106/64
[2017-07-01] MEDS: CHOLECALCIFEROL (VIT D3) 1,000 UNITS TABLET PO SCH (09:08)
[2017-07-01 17:22] VITALS: BP 89/49
[2017-07-01] MEDS ORDERED: DOCUSATE SODIUM 100 MG CAPSULE PO PRN (18:30)
[2017-07-01] MEDS: OLANZapine 10 MG TABLET PO SCH (20:43)
[2017-07-01] MEDS: TraZODone HCL 100 MG TABLET PO SCH (20:43)
[2017-07-02 06:28] VITALS: BP 101/60
[2017-07-02] MEDS: CHOLECALCIFEROL (VIT D3) 1,000 UNITS TABLET PO SCH (09:52)
[2017-07-02 10:48] VITALS: BP 109/53
[2017-07-02 16:20] VITALS: BP 103/59
[2017-07-02] MEDS: OLANZapine 10 MG TABLET PO SCH (20:54)
[2017-07-02] MEDS: TraZODone HCL 100 MG TABLET PO SCH (20:54)
[2017-07-03 09:00] VITALS: BP 91/50
[2017-07-03] MEDS: CHOLECALCIFEROL (VIT D3) 1,000 UNITS TABLET PO SCH (10:19)
[2017-07-03] MEDS ORDERED: ALBUTEROL SULFATE HFA 90 MCG/PUFF 8 GM INHALER IH PRN (18:00)
[2017-07-03 18:38] VITALS: BP 91/65
[2017-07-03] MEDS: TraZODone HCL 100 MG TABLET PO SCH (20:50)
[2017-07-03] MEDS: OLANZapine 10 MG TABLET PO SCH (20:51)
[2017-07-04 06:58] LABS: BASOPHILS % (AUTO) 0.5 % (0.0-2.0); EOSINOPHILS % (AUTO) 3.2 % (1.0-6.0); HEMATOCRIT 43.8 % (41-53); LYMPHOCYTES # (AUTO) 1.9 K/uL (1.0-4.8); LYMPHOCYTES % (AUTO) 18.8 % (22.0-44.0); MEAN CORPUSCULAR HEMOGLOBIN 30.4 pg (26.0-34.0); MEAN CORPUSCULAR HGB CONC 34.3 G/dL (31.0-37.0); MEAN CORPUSCULAR VOLUME 89 fL (80-100); MONOCYTES # (AUTO) 0.6 K/uL (0.1-1.0); MONOCYTES % (AUTO) 6.2 % (2.0-9.0); NEUTROPHILS # (AUTO) 7.4 K/uL (1.8-7.7); NEUTROPHILS % (AUTO) 71.3 % (40.0-70.0); PLATELET COUNT (AUTO) 294 K/uL (150-450); RED BLOOD CELL COUNT(AUTO) 4.93 MIL/uL (4.50-5.90)
[2017-07-04 08:44] VITALS: BP 104/64
[2017-07-04] MEDS: CHOLECALCIFEROL (VIT D3) 1,000 UNITS TABLET PO SCH (08:55)
== END 2017-07-04 10:30 | disposition home or self-care (01) | DRG 885 ==
LOC: EMS 10:56 → 3EI 15:12
PROVIDERS: ADMIT Psychiatry & Neurology Psychiatry; ATTEND Psychiatry & Neurology Psychiatry
DX: F20.0 Paranoid schizophrenia (principal); R45.851 Suicidal ideations; E55.9 Vitamin D deficiency, unspecified; E78.5 Hyperlipidemia, unspecified; F15.10 Other stimulant abuse, uncomplicated; G47.00 Insomnia, unspecified; J44.9 Chronic obstructive pulmonary disease, unspecified; K21.9 Gastro-esophageal reflux disease without esophagitis; K59.00 Constipation, unspecified; D72.829 Elevated white blood cell count, unspecified; F17.210 Nicotine dependence, cigarettes, uncomplicated
CPT/HCPCS: 84439; 84443; 87081; 99285; G0480; J3535

== ENCOUNTER 2017-07-06 17:35 | Emergency (ER) | payer MEDICARE, MEDICAID ==
[~2017-07-06] VITALS: Ht 177.8 cm; Wt 79.1 kg
[2017-07-06] MEDS ORDERED: DiphenhydrAMINE HCL 50 MG/ML VIAL IM ONE (18:00)
[2017-07-06] MEDS ORDERED: HALOPERIDOL LACTATE 5 MG/ML VIAL IM ONE (18:00)
[2017-07-06] MEDS ORDERED: LORazepam 2 MG/ML VIAL IM ONE (18:00)
[2017-07-06 18:32] LABS: ANION GAP 12 mmol/L (8-16); BASOPHILS % (AUTO) 0.8 % (0.0-2.0); CALCIUM, TOTAL 9.8 mg/dL (8.8-10.5); CARBON DIOXIDE 26 mmol/L (22-29); CHLORIDE 100 mmol/L (98-107); CREATININE 0.92 mg/dL (0.60-1.30); EOSINOPHILS % (AUTO) 1.1 % (1.0-6.0); GLOMERULAR FILTR. RATE CALC > 60 mL/min (>60); GLUCOSE,RANDOM 105 mg/dL (70-110); HEMATOCRIT 45.9 % (41-53); HEMOGLOBIN 15.6 g/dL (13.5-17.5); LYMPHOCYTES # (AUTO) 2.7 K/uL (1.0-4.8); LYMPHOCYTES % (AUTO) 17.7 % (22.0-44.0); MEAN CORPUSCULAR HEMOGLOBIN 29.9 pg (26.0-34.0); MEAN CORPUSCULAR HGB CONC 34.1 G/dL (31.0-37.0); MEAN CORPUSCULAR VOLUME 88 fL (80-100); MONOCYTES # (AUTO) 1.2 K/uL (0.1-1.0); MONOCYTES % (AUTO) 7.7 % (2.0-9.0); NEUTROPHILS # (AUTO) 11.1 K/uL (1.8-7.7); NEUTROPHILS % (AUTO) 72.7 % (40.0-70.0); PLATELET COUNT (AUTO) 376 K/uL (150-450); POTASSIUM 3.8 mmol/L (3.5-5.1); RED BLOOD CELL COUNT(AUTO) 5.23 MIL/uL (4.50-5.90); RED CELL DISTRIBUTION WIDTH 13.3 % (11.5-14.5); SODIUM SERUM 138 mmol/L (136-145); UREA NITROGEN, BLOOD 12 mg/dL (7-18)
[2017-07-06 18:37] LABS: ALANINE AMINOTRANSFERASE 22 U/L (12-78); ALBUMIN 4.8 g/dL (3.4-5.0); ALKALINE PHOSPHATASE 97 U/L (46-116); ASPARTATE AMINOTRANSFERASE 19 U/L (15-37); BILIRUBIN,TOTAL 0.8 mg/dL (0.1-1.0); TOTAL PROTEIN, SERUM 8.4 g/dL (6.4-8.2)
[2017-07-06 19:42] VITALS: BP 129/87
== END 2017-07-06 20:08 | disposition home or self-care (01) ==
LOC: EMS 17:54
DX: F15.10 Other stimulant abuse, uncomplicated (principal); F25.9 Schizoaffective disorder, unspecified; F29 Unspecified psychosis not due to a substance or known physiological condition; J45.909 Unspecified asthma, uncomplicated; J44.9 Chronic obstructive pulmonary disease, unspecified; K21.9 Gastro-esophageal reflux disease without esophagitis; F17.210 Nicotine dependence, cigarettes, uncomplicated; Z79.899 Other long term (current) drug therapy
CPT/HCPCS: 36415; 80053; 85025; 96372; 99284; G0480; J1200; J1630; J2060

== ENCOUNTER 2017-07-08 20:59 | Emergency (ER) | payer MEDICARE, MEDICAID ==
[~2017-07-08] VITALS: Ht 177.8 cm; Wt 79.1 kg
[2017-07-08 21:48] LABS: BASOPHILS % (AUTO) 0.5 % (0.0-2.0); EOSINOPHILS % (AUTO) 2.4 % (1.0-6.0); HEMATOCRIT 42.6 % (41-53); HEMOGLOBIN 14.6 g/dL (13.5-17.5); LYMPHOCYTES # (AUTO) 3.2 K/uL (1.0-4.8); LYMPHOCYTES % (AUTO) 23.9 % (22.0-44.0); MEAN CORPUSCULAR HEMOGLOBIN 30.1 pg (26.0-34.0); MEAN CORPUSCULAR HGB CONC 34.2 G/dL (31.0-37.0); MEAN CORPUSCULAR VOLUME 88 fL (80-100); MONOCYTES # (AUTO) 0.9 K/uL (0.1-1.0); MONOCYTES % (AUTO) 6.9 % (2.0-9.0); NEUTROPHILS # (AUTO) 8.8 K/uL (1.8-7.7); NEUTROPHILS % (AUTO) 66.3 % (40.0-70.0); PLATELET COUNT (AUTO) 321 K/uL (150-450); RED BLOOD CELL COUNT(AUTO) 4.84 MIL/uL (4.50-5.90); RED CELL DISTRIBUTION WIDTH 13.2 % (11.5-14.5)
[2017-07-08 21:55] LABS: AMPHET/METH SCREEN,URINE POSITIVE (NEGATIVE); BARBITURATE SCREEN, URINE NEGATIVE (NEGATIVE); BENZODIAZEPINES SCREEN,URINE NEGATIVE (NEGATIVE); CANNABINOID SCREEN,URINE NEGATIVE (NEGATIVE); COCAINE SCREEN,URINE NEGATIVE (NEGATIVE); METHADONE SCREEN, URINE NEGATIVE (NEGATIVE); OPIATE SCREEN,URINE NEGATIVE (NEGATIVE)
[2017-07-08 21:57] LABS: ANION GAP 6 mmol/L (8-16); CALCIUM, TOTAL 9.7 mg/dL (8.8-10.5); CARBON DIOXIDE 31 mmol/L (22-29); CHLORIDE 103 mmol/L (98-107); CREATININE 0.93 mg/dL (0.60-1.30); GLOMERULAR FILTR. RATE CALC > 60 mL/min (>60); GLUCOSE,RANDOM 81 mg/dL (70-110); POTASSIUM 3.7 mmol/L (3.5-5.1); SODIUM SERUM 140 mmol/L (136-145); UREA NITROGEN, BLOOD 13 mg/dL (7-18)
[2017-07-08 22:03] LABS: PHENCYCLIDINE SCREEN,URINE NEGATIVE (NEGATIVE)
[2017-07-08 22:05] LABS: ALANINE AMINOTRANSFERASE 25 U/L (12-78); ALKALINE PHOSPHATASE 96 U/L (46-116); ASPARTATE AMINOTRANSFERASE 21 U/L (15-37); BILIRUBIN,TOTAL 0.6 mg/dL (0.1-1.0); TOTAL PROTEIN, SERUM 7.2 g/dL (6.4-8.2)
[2017-07-08] MEDS ORDERED: HALOPERIDOL 5 MG TABLET PO ONE (22:30)
[2017-07-09 00:22] VITALS: BP 118/65
== END 2017-07-09 00:23 | disposition home or self-care (01) ==
LOC: EMS 21:01
DX: S20.219A Contusion of unspecified front wall of thorax, initial encounter (principal); F25.9 Schizoaffective disorder, unspecified; J44.9 Chronic obstructive pulmonary disease, unspecified; K21.9 Gastro-esophageal reflux disease without esophagitis; F41.9 Anxiety disorder, unspecified; F31.9 Bipolar disorder, unspecified; R07.9 Chest pain, unspecified; F12.10 Cannabis abuse, uncomplicated; F15.10 Other stimulant abuse, uncomplicated; F14.10 Cocaine abuse, uncomplicated; W19.XXXA Unspecified fall, initial encounter; Y93.89 Activity, other specified; Y92.89 Other specified places as the place of occurrence of the external cause; Y99.8 Other external cause status
CPT/HCPCS: 36415; 71045; 80053; 80307; 85025; 99285; G0480

== ENCOUNTER 2017-07-09 04:19 | Emergency (ER) | payer MEDICARE, MEDICAID ==
[~2017-07-09] VITALS: Ht 177.8 cm; Wt 72.7 kg
[2017-07-09 08:38] VITALS: BP 98/67
== END 2017-07-09 08:42 | disposition home or self-care (01) ==
LOC: EMS 04:21
DX: F20.9 Schizophrenia, unspecified (principal); F15.10 Other stimulant abuse, uncomplicated; F12.10 Cannabis abuse, uncomplicated; F14.10 Cocaine abuse, uncomplicated; F17.210 Nicotine dependence, cigarettes, uncomplicated
CPT/HCPCS: 99284

== ENCOUNTER 2017-07-15 15:58 | Inpatient (IN) | payer MEDICARE, MEDICAID ==
[~2017-07-15] VITALS: Ht 180.3 cm; Wt 80.3 kg
[2017-07-15 16:51] VITALS: BP 118/86
[2017-07-15] MEDS ORDERED: OLANZapine 5 MG RAPDIS TABLET PO PRN (17:00)
[2017-07-15] MEDS ORDERED: ZOLPIDEM TARTRATE 10 MG TABLET PO PRN (17:00)
[2017-07-15 18:00] VITALS: BP 118/64
[2017-07-15] MEDS ORDERED: -PHARMACY VACCINE NOTE- MISC ONE ×2 (18:30→19:00)
[2017-07-15] MEDS: OLANZapine 10 MG TABLET PO SCH (20:48)
[2017-07-15] MEDS: LORazepam 2 MG TABLET PO PRN (20:48)
[2017-07-15] MEDS: TraZODone HCL 100 MG TABLET PO SCH (20:48)
[2017-07-16 06:37] VITALS: BP 101/62
[2017-07-16 08:39] LABS: BASOPHILS % (AUTO) 0.5 % (0.0-2.0); HEMOGLOBIN 13.8 g/dL (13.5-17.5); LYMPHOCYTES # (AUTO) 2.7 K/uL (1.0-4.8); LYMPHOCYTES % (AUTO) 25.1 % (22.0-44.0); MEAN CORPUSCULAR HGB CONC 33.7 G/dL (31.0-37.0); MEAN CORPUSCULAR VOLUME 89 fL (80-100); MONOCYTES # (AUTO) 0.8 K/uL (0.1-1.0); MONOCYTES % (AUTO) 7.1 % (2.0-9.0); NEUTROPHILS # (AUTO) 6.8 K/uL (1.8-7.7); NEUTROPHILS % (AUTO) 63.3 % (40.0-70.0); PLATELET COUNT (AUTO) 328 K/uL (150-450); RED BLOOD CELL COUNT(AUTO) 4.61 MIL/uL (4.50-5.90); RED CELL DISTRIBUTION WIDTH 13.3 % (11.5-14.5)
[2017-07-16 08:47] LABS: HEMOGLOBIN A1C 5.7 % (4.5-6.2)
[2017-07-16 08:57] VITALS: BP 106/68
[2017-07-16 09:05] LABS: ALANINE AMINOTRANSFERASE 17 U/L (12-78); ALBUMIN 3.3 g/dL (3.4-5.0); ALKALINE PHOSPHATASE 89 U/L (46-116); ANION GAP 8 mmol/L (8-16); ASPARTATE AMINOTRANSFERASE 11 U/L (15-37); BILIRUBIN,TOTAL 0.2 mg/dL (0.1-1.0); CALCIUM, TOTAL 8.8 mg/dL (8.8-10.5); CARBON DIOXIDE 27 mmol/L (22-29); CHLORIDE 107 mmol/L (98-107); CHOL/HDL RATIO 4.5 (4.2-7.3); CHOLESTEROL 162 mg/dL (131-200); CREATININE 0.74 mg/dL (0.60-1.30); FREE T4 (FREE THYROXINE) 0.87 ng/dL (0.76-1.46); GLOMERULAR FILTR. RATE CALC > 60 mL/min (>60); GLUCOSE,RANDOM 89 mg/dL (70-110); HDL CHOLESTEROL 36 mg/dL (40-60); LDL CHOL (CALC.) 85 mg/dL (0-130); POTASSIUM 3.9 mmol/L (3.5-5.1); SODIUM SERUM 142 mmol/L (136-145); THYROID STIMULATING HORMONE 1.02 uIU/mL (0.36-3.74); TOTAL PROTEIN, SERUM 6.2 g/dL (6.4-8.2); TRIGLYCERIDES 204 mg/dL (15-150); UREA NITROGEN, BLOOD 9 mg/dL (7-18)
[2017-07-16] MEDS: NICOTINE 14 MG/24 HOUR PATCH TD SCH (09:21)
[2017-07-16 16:00] VITALS: BP 101/60
[2017-07-16] MEDS ORDERED: ACETAMINOPHEN 325 MG TABLET PO PRN (16:30)
[2017-07-16] MEDS ORDERED: ALBUTEROL SULFATE HFA 90 MCG/PUFF 8 GM INHALER IH PRN (16:30)
[2017-07-16] MEDS ORDERED: IBUPROFEN 400 MG TABLET PO PRN (16:30)
[2017-07-16] MEDS: TraZODone HCL 100 MG TABLET PO SCH (20:22)
[2017-07-16] MEDS: OLANZapine 10 MG TABLET PO SCH (20:22)
[2017-07-17 02:27] VITALS: BP 91/68
[2017-07-17 08:47] VITALS: BP 98/55
[2017-07-17] MEDS: NICOTINE 14 MG/24 HOUR PATCH TD SCH (09:47)
[2017-07-17 16:41] VITALS: BP 95/62
[2017-07-17] MEDS: TraZODone HCL 100 MG TABLET PO SCH (20:19)
[2017-07-17] MEDS: OLANZapine 10 MG TABLET PO SCH (20:19)
[2017-07-18 05:45] VITALS: BP 110/68
[2017-07-18 08:46] VITALS: BP 100/66
[2017-07-18] MEDS: NICOTINE 14 MG/24 HOUR PATCH TD SCH (08:49)
[2017-07-18 16:13] VITALS: BP 106/64
[2017-07-18] MEDS: LORazepam 2 MG TABLET PO PRN (17:36)
[2017-07-18] MEDS: TraZODone HCL 100 MG TABLET PO SCH (20:10)
[2017-07-18] MEDS: OLANZapine 10 MG TABLET PO SCH (20:10)
[2017-07-19 01:38] VITALS: BP 103/64
[2017-07-19 08:17] VITALS: BP 100/70
[2017-07-19] MEDS: NICOTINE 14 MG/24 HOUR PATCH TD SCH (08:31)
[2017-07-19 16:32] VITALS: BP 109/65
[2017-07-19] MEDS: TraZODone HCL 100 MG TABLET PO SCH (20:11)
[2017-07-19] MEDS: OLANZapine 10 MG TABLET PO SCH (20:11)
[2017-07-20 06:30] VITALS: BP 103/65
[2017-07-20 08:44] VITALS: BP 118/74
[2017-07-20] MEDS: NICOTINE 14 MG/24 HOUR PATCH TD SCH (08:49)
== END 2017-07-20 14:05 | disposition home or self-care (01) | DRG 885 ==
LOC: B2S 17:06
PROVIDERS: ADMIT Psychiatry & Neurology Psychiatry; ATTEND Psychiatry & Neurology Psychiatry
DX: F25.9 Schizoaffective disorder, unspecified (principal); E55.9 Vitamin D deficiency, unspecified; E78.5 Hyperlipidemia, unspecified; F32.9 Major depressive disorder, single episode, unspecified; F10.10 Alcohol abuse, uncomplicated; I10 Essential (primary) hypertension; J45.909 Unspecified asthma, uncomplicated; Z79.899 Other long term (current) drug therapy
CPT/HCPCS: 83036; 84439; 84443; 87081; J3535

== ENCOUNTER 2017-07-25 12:33 | Emergency (ER) | payer MEDICARE, MEDICAID ==
[~2017-07-25] VITALS: Ht 177.8 cm; Wt 80.5 kg
[~2017-07-25 12:33] MED LIST changes: -CHOL10002 PO
[2017-07-25 12:35] VITALS: BP 104/62
== END 2017-07-25 14:50 | disposition left against medical advice (07) ==
LOC: EMS 12:35
DX: Z53.21 Procedure and treatment not carried out due to patient leaving prior to being seen by health care provider (principal)

== ENCOUNTER 2017-08-14 09:42 | Inpatient (IN) | payer MEDICARE, MEDICAID ==
[~2017-08-14] VITALS: Ht 180.3 cm; Wt 79.8 kg
[2017-08-14 10:30] VITALS: BP 138/80
[2017-08-14] MEDS ORDERED: ZOLPIDEM TARTRATE 10 MG TABLET PO PRN (10:45)
[2017-08-14] MEDS ORDERED: HALOPERIDOL 5 MG TABLET PO PRN (10:45)
[2017-08-14 12:40] VITALS: BP 116/85
[2017-08-14 16:03] VITALS: BP 120/75
[2017-08-14] MEDS: TraZODone HCL 100 MG TABLET PO SCH (20:03)
[2017-08-14] MEDS: OLANZapine 10 MG TABLET PO SCH (20:04)
[2017-08-15 06:34] VITALS: BP 112/67
[2017-08-15 07:50] VITALS: BP 104/54
[2017-08-15 08:09] VITALS: BP 104/54
[2017-08-15 08:32] LABS: BASOPHILS % (AUTO) 0.7 % (0.0-2.0); EOSINOPHILS % (AUTO) 3.8 % (1.0-6.0); HEMATOCRIT 42.5 % (41-53); HEMOGLOBIN 14.4 g/dL (13.5-17.5); LYMPHOCYTES # (AUTO) 2.5 K/uL (1.0-4.8); LYMPHOCYTES % (AUTO) 26.8 % (22.0-44.0); MEAN CORPUSCULAR HEMOGLOBIN 30.1 pg (26.0-34.0); MEAN CORPUSCULAR HGB CONC 33.8 G/dL (31.0-37.0); MEAN CORPUSCULAR VOLUME 89 fL (80-100); MONOCYTES # (AUTO) 0.7 K/uL (0.1-1.0); MONOCYTES % (AUTO) 7.1 % (2.0-9.0); NEUTROPHILS # (AUTO) 5.7 K/uL (1.8-7.7); NEUTROPHILS % (AUTO) 61.6 % (40.0-70.0); PLATELET COUNT (AUTO) 309 K/uL (150-450); RED BLOOD CELL COUNT(AUTO) 4.77 MIL/uL (4.50-5.90); RED CELL DISTRIBUTION WIDTH 13.7 % (11.5-14.5)
[2017-08-15 08:42] LABS: HEMOGLOBIN A1C 5.6 % (4.5-6.2)
[2017-08-15 09:00] LABS: ALANINE AMINOTRANSFERASE 28 U/L (12-78); ALBUMIN 3.5 g/dL (3.4-5.0); ALKALINE PHOSPHATASE 89 U/L (46-116); ANION GAP 10 mmol/L (8-16); ASPARTATE AMINOTRANSFERASE 22 U/L (15-37); BILIRUBIN,TOTAL 0.4 mg/dL (0.1-1.0); CALCIUM, TOTAL 8.9 mg/dL (8.8-10.5); CARBON DIOXIDE 26 mmol/L (22-29); CHLORIDE 107 mmol/L (98-107); CHOLESTEROL 178 mg/dL (131-200); CREATININE 0.83 mg/dL (0.60-1.30); FREE T4 (FREE THYROXINE) 0.84 ng/dL (0.76-1.46); GLOMERULAR FILTR. RATE CALC > 60 mL/min (>60); GLUCOSE,RANDOM 76 mg/dL (70-110); HDL CHOLESTEROL 44 mg/dL (40-60); LDL CHOL (CALC.) 114 mg/dL (0-130); POTASSIUM 4.2 mmol/L (3.5-5.1); SODIUM SERUM 143 mmol/L (136-145); THYROID STIMULATING HORMONE 0.86 uIU/mL (0.36-3.74); TOTAL PROTEIN, SERUM 6.2 g/dL (6.4-8.2); TRIGLYCERIDES 101 mg/dL (15-150); UREA NITROGEN, BLOOD 9 mg/dL (7-18)
[2017-08-15 09:43] LABS: AMPHET/METH SCREEN,URINE POSITIVE (NEGATIVE); BARBITURATE SCREEN, URINE NEGATIVE (NEGATIVE); BENZODIAZEPINES SCREEN,URINE NEGATIVE (NEGATIVE); CANNABINOID SCREEN,URINE NEGATIVE (NEGATIVE); COCAINE SCREEN,URINE NEGATIVE (NEGATIVE); METHADONE SCREEN, URINE NEGATIVE (NEGATIVE); OPIATE SCREEN,URINE NEGATIVE (NEGATIVE)
[2017-08-15 09:44] LABS: PHENCYCLIDINE SCREEN,URINE NEGATIVE (NEGATIVE)
[2017-08-15 10:03] LABS: APPEARANCE,URINE CLEAR (CLEAR); BILIRUBIN,URINE NEGATIVE (NEGATIVE); GLUCOSE, URINE (UA) NEGATIVE (NEGATIVE); KETONES,URINE NEGATIVE (NEGATIVE); LEUKOCYTE ESTERASE ,URINE NEGATIVE (NEGATIVE); NITRATE,URINE NEGATIVE (NEGATIVE); OCCULT BLOOD,URINE NEGATIVE (NEGATIVE); PROTEIN,URINE TRACE (NEGATIVE); UROBILINOGEN,URINE 0.2 mg/dL (<=1.0)
[2017-08-15] MEDS ORDERED: IBUPROFEN 400 MG TABLET PO PRN (20:00)
[2017-08-15] MEDS ORDERED: ACETAMINOPHEN 325 MG TABLET PO PRN (20:00)
[2017-08-15] MEDS: OLANZapine 10 MG TABLET PO SCH (20:18)
[2017-08-15] MEDS: TraZODone HCL 100 MG TABLET PO SCH (20:18)
[2017-08-15 21:30] VITALS: BP 124/81
[2017-08-16 07:03] VITALS: BP 96/55
[2017-08-16 08:32] LABS: HEMOGLOBIN A1C 5.2 % (4.5-6.2)
[2017-08-16 08:33] VITALS: BP 109/71
[2017-08-16 09:02] LABS: THYROID STIMULATING HORMONE 0.47 uIU/mL (0.36-3.74)
[2017-08-16] MEDS: ALBUTEROL SULFATE HFA 90 MCG/PUFF 8 GM INHALER IH PRN (14:13)
[2017-08-16 16:19] VITALS: BP 102/60
[2017-08-16] MEDS: OLANZapine 10 MG TABLET PO SCH (21:14)
[2017-08-16] MEDS: TraZODone HCL 100 MG TABLET PO SCH (21:14)
[2017-08-17 06:15] VITALS: BP 102/61
[2017-08-17 08:24] VITALS: BP 104/73
[2017-08-17] MEDS: ALBUTEROL SULFATE HFA 90 MCG/PUFF 8 GM INHALER IH PRN (12:36)
[2017-08-17 16:29] VITALS: BP 110/68
[2017-08-17] MEDS: LORazepam 2 MG TABLET PO PRN (17:53)
[2017-08-17] MEDS: TraZODone HCL 100 MG TABLET PO SCH (20:11)
[2017-08-17] MEDS: OLANZapine 10 MG TABLET PO SCH (20:11)
[2017-08-18 01:20] VITALS: BP 102/63
[2017-08-18 08:27] VITALS: BP 103/69
[2017-08-18] MEDS: NICOTINE 7 MG/24 HOUR PATCH TD SCH (08:40)
[2017-08-18 16:16] VITALS: BP 112/71
[2017-08-18] MEDS: OLANZapine 10 MG TABLET PO SCH (20:38)
[2017-08-18] MEDS: TraZODone HCL 100 MG TABLET PO SCH (20:38)
[2017-08-19 06:33] VITALS: BP 101/58
[2017-08-19 08:24] VITALS: BP 108/70
[2017-08-19] MEDS: NICOTINE 7 MG/24 HOUR PATCH TD SCH (08:31)
[2017-08-19] MEDS: LORazepam 2 MG TABLET PO PRN (16:53)
[2017-08-19 17:04] VITALS: BP 104/62
[2017-08-19] MEDS: TraZODone HCL 100 MG TABLET PO SCH (19:40)
[2017-08-19] MEDS: OLANZapine 10 MG TABLET PO SCH (19:40)
[2017-08-20 05:37] VITALS: BP 101/62
[2017-08-20] MEDS ORDERED: ALBU8HFA IH (08:03)
[2017-08-20 08:07] VITALS: BP 115/77
[2017-08-20] MEDS: NICOTINE 7 MG/24 HOUR PATCH TD SCH (09:47)
== END 2017-08-20 10:00 | disposition home or self-care (01) | DRG 885 ==
LOC: B3A 10:39 → B2S 12:56
PROVIDERS: ADMIT Psychiatry & Neurology Psychiatry; ATTEND Psychiatry & Neurology Psychiatry
DX: F25.9 Schizoaffective disorder, unspecified (principal); E55.9 Vitamin D deficiency, unspecified; E78.5 Hyperlipidemia, unspecified; F10.10 Alcohol abuse, uncomplicated; F17.200 Nicotine dependence, unspecified, uncomplicated; I10 Essential (primary) hypertension; J45.909 Unspecified asthma, uncomplicated
CPT/HCPCS: 80307; 83036; 84439; 84443; 87081; J3535

== ENCOUNTER 2017-08-23 20:37 | Inpatient (IN) | payer MEDICARE, MEDICAID ==
[~2017-08-23] VITALS: Ht 180.3 cm; Wt 78.5 kg
[~2017-08-23 20:37] MED LIST changes: +ALBU8HFA IH
[2017-08-23 21:08] LABS: BASOPHILS % (AUTO) 0.6 % (0.0-2.0); EOSINOPHILS % (AUTO) 1.1 % (1.0-6.0); HEMATOCRIT 43.3 % (41-53); HEMOGLOBIN 14.9 g/dL (13.5-17.5); LYMPHOCYTES # (AUTO) 2.7 K/uL (1.0-4.8); LYMPHOCYTES % (AUTO) 17.2 % (22.0-44.0); MEAN CORPUSCULAR HEMOGLOBIN 30.1 pg (26.0-34.0); MEAN CORPUSCULAR HGB CONC 34.4 G/dL (31.0-37.0); MEAN CORPUSCULAR VOLUME 88 fL (80-100); MONOCYTES # (AUTO) 1.1 K/uL (0.1-1.0); MONOCYTES % (AUTO) 7.2 % (2.0-9.0); NEUTROPHILS # (AUTO) 11.6 K/uL (1.8-7.7); NEUTROPHILS % (AUTO) 73.9 % (40.0-70.0); PLATELET COUNT (AUTO) 357 K/uL (150-450); RED BLOOD CELL COUNT(AUTO) 4.95 MIL/uL (4.50-5.90); RED CELL DISTRIBUTION WIDTH 13.5 % (11.5-14.5)
[2017-08-23 21:18] LABS: ANION GAP 12 mmol/L (8-16); CALCIUM, TOTAL 9.8 mg/dL (8.8-10.5); CARBON DIOXIDE 25 mmol/L (22-29); CHLORIDE 101 mmol/L (98-107); CREATININE 1.04 mg/dL (0.60-1.30); GLOMERULAR FILTR. RATE CALC > 60 mL/min (>60); GLUCOSE,RANDOM 90 mg/dL (70-110); SODIUM SERUM 138 mmol/L (136-145); UREA NITROGEN, BLOOD 14 mg/dL (7-18)
[2017-08-23 21:24] LABS: ALANINE AMINOTRANSFERASE 24 U/L (12-78); ALBUMIN 4.6 g/dL (3.4-5.0); ALKALINE PHOSPHATASE 108 U/L (46-116); ASPARTATE AMINOTRANSFERASE 16 U/L (15-37); BILIRUBIN,TOTAL 0.8 mg/dL (0.1-1.0); TOTAL PROTEIN, SERUM 7.9 g/dL (6.4-8.2)
[2017-08-23] MEDS ORDERED: DiphenhydrAMINE HCL 50 MG/ML VIAL IM ONE (23:15)
[2017-08-23] MEDS ORDERED: HALOPERIDOL LACTATE 5 MG/ML VIAL IM ONE (23:15)
[2017-08-23] MEDS ORDERED: LORazepam 2 MG/ML VIAL IM ONE (23:15)
[2017-08-24] MEDS ORDERED: MAGNESIUM HYDROXIDE SUSPENSION 30 ML UDCUP PO PRN
[2017-08-24] MEDS ORDERED: ACETAMINOPHEN 325 MG TABLET PO PRN
[2017-08-24] MEDS ORDERED: MAG HYDROX/AL HYDROX/SIMETH ES 30 ML SUSPENSION UDCUP PO PRN
[2017-08-24 03:00] LABS: CHOL/HDL RATIO 3.7 (4.2-7.3); CHOLESTEROL 195 mg/dL (131-200); HDL CHOLESTEROL 53 mg/dL (40-60); LDL CHOL (CALC.) 128 mg/dL (0-130); TRIGLYCERIDES 69 mg/dL (15-150)
[2017-08-24] MEDS ORDERED: ZOLPIDEM TARTRATE 10 MG TABLET PO PRN (09:15)
[2017-08-24] MEDS ORDERED: HALOPERIDOL 5 MG TABLET PO PRN (09:15)
[2017-08-24 11:20] VITALS: BP 115/70
[2017-08-24 16:30] VITALS: BP 121/79
[2017-08-25] VITALS: BP 100/61
[2017-08-25] MEDS: NICOTINE 21 MG/24 HOUR PATCH TD SCH (08:21)
[2017-08-25 08:30] VITALS: BP 106/68
[2017-08-25 08:49] LABS: CHOL/HDL RATIO 3.8 (4.2-7.3)
[2017-08-25] MEDS: LORazepam 2 MG TABLET PO PRN (15:53)
[2017-08-25] MEDS: ALBUTEROL SULFATE HFA 90 MCG/PUFF 8 GM INHALER IH PRN (15:53)
[2017-08-25 16:03] VITALS: BP 105/80
[2017-08-25] MEDS: OLANZapine 10 MG TABLET PO SCH (20:09)
[2017-08-25] MEDS: TraZODone HCL 100 MG TABLET PO SCH (20:09)
[2017-08-26 06:26] VITALS: BP 108/64
[2017-08-26 07:58] LABS: BASOPHILS % (AUTO) 0.4 % (0.0-2.0); EOSINOPHILS % (AUTO) 3.9 % (1.0-6.0); HEMATOCRIT 41.2 % (41-53); HEMOGLOBIN 13.9 g/dL (13.5-17.5); LYMPHOCYTES # (AUTO) 2.8 K/uL (1.0-4.8); LYMPHOCYTES % (AUTO) 26.2 % (22.0-44.0); MEAN CORPUSCULAR HEMOGLOBIN 30.1 pg (26.0-34.0); MEAN CORPUSCULAR HGB CONC 33.8 G/dL (31.0-37.0); MEAN CORPUSCULAR VOLUME 89 fL (80-100); MONOCYTES # (AUTO) 0.7 K/uL (0.1-1.0); MONOCYTES % (AUTO) 6.9 % (2.0-9.0); NEUTROPHILS # (AUTO) 6.8 K/uL (1.8-7.7); NEUTROPHILS % (AUTO) 62.6 % (40.0-70.0); PLATELET COUNT (AUTO) 298 K/uL (150-450); RED BLOOD CELL COUNT(AUTO) 4.61 MIL/uL (4.50-5.90); RED CELL DISTRIBUTION WIDTH 13.4 % (11.5-14.5)
[2017-08-26] MEDS: NICOTINE 21 MG/24 HOUR PATCH TD SCH (08:16)
[2017-08-26 08:23] VITALS: BP 102/63
[2017-08-26 17:15] VITALS: BP 116/72
[2017-08-26] MEDS: TraZODone HCL 100 MG TABLET PO SCH (20:19)
[2017-08-26] MEDS: OLANZapine 10 MG TABLET PO SCH (20:20)
[2017-08-27 06:44] VITALS: BP 105/65
[2017-08-27 08:02] VITALS: BP 110/56
[2017-08-27] MEDS: NICOTINE 21 MG/24 HOUR PATCH TD SCH (08:49)
[2017-08-27] MEDS: ALBUTEROL SULFATE HFA 90 MCG/PUFF 8 GM INHALER IH PRN (13:25)
[2017-08-27] MEDS: LORazepam 2 MG TABLET PO PRN (13:47)
[2017-08-27 16:33] VITALS: BP 136/89
[2017-08-27] MEDS: OLANZapine 10 MG TABLET PO SCH (20:32)
[2017-08-27] MEDS: TraZODone HCL 100 MG TABLET PO SCH (20:32)
[2017-08-28 06:11] VITALS: BP 105/66
[2017-08-28 08:09] VITALS: BP 102/71
[2017-08-28] MEDS: NICOTINE 21 MG/24 HOUR PATCH TD SCH (08:52)
== END 2017-08-28 13:25 | disposition home or self-care (01) | DRG 885 ==
LOC: EMS 20:38 → B2S 08-24 08:31
PROVIDERS: ADMIT Psychiatry & Neurology Psychiatry; ATTEND Psychiatry & Neurology Psychiatry
DX: F25.0 Schizoaffective disorder, bipolar type (principal); R45.851 Suicidal ideations; Z91.19 Patient's noncompliance with other medical treatment and regimen; D72.829 Elevated white blood cell count, unspecified; E55.9 Vitamin D deficiency, unspecified; E78.5 Hyperlipidemia, unspecified; F10.10 Alcohol abuse, uncomplicated; F19.90 Other psychoactive substance use, unspecified, uncomplicated; F41.9 Anxiety disorder, unspecified; I10 Essential (primary) hypertension; J44.9 Chronic obstructive pulmonary disease, unspecified; K21.9 Gastro-esophageal reflux disease without esophagitis; F17.210 Nicotine dependence, cigarettes, uncomplicated; F15.90 Other stimulant use, unspecified, uncomplicated; Z79.899 Other long term (current) drug therapy; Z71.41 Alcohol abuse counseling and surveillance of alcoholic; Z71.51 Drug abuse counseling and surveillance of drug abuser; Z82.5 Family history of asthma and other chronic lower respiratory diseases
CPT/HCPCS: 87081; 96372; 99285; G0480; J1200; J1630; J2060; J3535

== ENCOUNTER 2017-09-07 18:04 | Emergency (ER) | payer MEDICARE, MEDICAID ==
[~2017-09-07] VITALS: Ht 182.9 cm; Wt 84.1 kg
[~2017-09-07 18:04] MED LIST changes: -ALBU8HFA IH
[2017-09-07 18:08] VITALS: BP 110/81
[2017-09-07 18:20] LABS: BASOPHILS % (AUTO) 0.5 % (0.0-2.0); EOSINOPHILS % (AUTO) 1.9 % (1.0-6.0); HEMATOCRIT 44.6 % (41-53); HEMOGLOBIN 15.2 g/dL (13.5-17.5); LYMPHOCYTES # (AUTO) 2.9 K/uL (1.0-4.8); LYMPHOCYTES % (AUTO) 21.9 % (22.0-44.0); MEAN CORPUSCULAR HEMOGLOBIN 29.7 pg (26.0-34.0); MEAN CORPUSCULAR VOLUME 87 fL (80-100); MONOCYTES # (AUTO) 0.8 K/uL (0.1-1.0); MONOCYTES % (AUTO) 5.6 % (2.0-9.0); NEUTROPHILS # (AUTO) 9.3 K/uL (1.8-7.7); NEUTROPHILS % (AUTO) 70.1 % (40.0-70.0); PLATELET COUNT (AUTO) 429 K/uL (150-450); RED BLOOD CELL COUNT(AUTO) 5.11 MIL/uL (4.50-5.90); RED CELL DISTRIBUTION WIDTH 13.1 % (11.5-14.5)
[2017-09-07 18:28] LABS: ANION GAP 9 mmol/L (8-16); CALCIUM, TOTAL 8.9 mg/dL (8.8-10.5); CARBON DIOXIDE 28 mmol/L (22-29); CHLORIDE 100 mmol/L (98-107); GLOMERULAR FILTR. RATE CALC > 60 mL/min (>60); GLUCOSE,RANDOM 101 mg/dL (70-110); SODIUM SERUM 137 mmol/L (136-145); UREA NITROGEN, BLOOD 12 mg/dL (7-18)
[2017-09-07 18:34] LABS: ALANINE AMINOTRANSFERASE 20 U/L (12-78); ALBUMIN 4.1 g/dL (3.4-5.0); ALKALINE PHOSPHATASE 101 U/L (46-116); ASPARTATE AMINOTRANSFERASE 11 U/L (15-37); BILIRUBIN,TOTAL 0.4 mg/dL (0.1-1.0); TOTAL PROTEIN, SERUM 7.8 g/dL (6.4-8.2)
[2017-09-07] MEDS ORDERED: CLOTRIMAZOLE 1% 15 GM CREAM TP ONE (19:30)
== END 2017-09-07 20:09 | disposition home or self-care (01) ==
LOC: EMS 18:04
DX: F20.9 Schizophrenia, unspecified (principal); F15.10 Other stimulant abuse, uncomplicated; F31.9 Bipolar disorder, unspecified; F41.9 Anxiety disorder, unspecified; J44.9 Chronic obstructive pulmonary disease, unspecified; K21.9 Gastro-esophageal reflux disease without esophagitis; F17.210 Nicotine dependence, cigarettes, uncomplicated
CPT/HCPCS: 36415; 80053; 85025; 99284; G0480

== ENCOUNTER 2017-10-02 17:46 | Inpatient (IN) | payer MEDICARE, MEDICAID ==
[~2017-10-02] VITALS: Ht 177.8 cm; Wt 80.3 kg
[2017-10-02] MEDS ORDERED: ZOLPIDEM TARTRATE 10 MG TABLET PO PRN (18:00)
[2017-10-02 18:13] VITALS: BP 127/58
[2017-10-02] MEDS: LORazepam 2 MG TABLET PO PRN (19:17)
[2017-10-02] MEDS: HALOPERIDOL 5 MG TABLET PO PRN (19:17)
[2017-10-02] MEDS ORDERED: IBUPROFEN 400 MG TABLET PO PRN (20:30)
[2017-10-02] MEDS ORDERED: ALBUTEROL SULFATE HFA 90 MCG/PUFF 8 GM INHALER IH PRN (20:30)
[2017-10-02] MEDS ORDERED: ACETAMINOPHEN 325 MG TABLET PO PRN (20:30)
[2017-10-03 06:20] VITALS: BP 107/64
[2017-10-03 08:10] VITALS: BP 108/74
[2017-10-03] MEDS: NICOTINE 14 MG/24 HOUR PATCH TD SCH (08:35)
[2017-10-03 09:06] LABS: BASOPHILS % (AUTO) 0.4 % (0.0-2.0); HEMATOCRIT 40.6 % (41-53); HEMOGLOBIN 14.2 g/dL (13.5-17.5); LYMPHOCYTES # (AUTO) 2.3 K/uL (1.0-4.8); LYMPHOCYTES % (AUTO) 24.6 % (22.0-44.0); MEAN CORPUSCULAR HEMOGLOBIN 30.6 pg (26.0-34.0); MEAN CORPUSCULAR HGB CONC 34.9 G/dL (31.0-37.0); MEAN CORPUSCULAR VOLUME 88 fL (80-100); MONOCYTES # (AUTO) 0.6 K/uL (0.1-1.0); MONOCYTES % (AUTO) 6.1 % (2.0-9.0); NEUTROPHILS % (AUTO) 64.9 % (40.0-70.0); PLATELET COUNT (AUTO) 344 K/uL (150-450); RED BLOOD CELL COUNT(AUTO) 4.63 MIL/uL (4.50-5.90); RED CELL DISTRIBUTION WIDTH 13.8 % (11.5-14.5)
[2017-10-03 09:58] LABS: HEMOGLOBIN A1C 5.5 % (4.5-6.2)
[2017-10-03 10:10] LABS: ALANINE AMINOTRANSFERASE 20 U/L (12-78); ALBUMIN 3.4 g/dL (3.4-5.0); ALKALINE PHOSPHATASE 87 U/L (46-116); ANION GAP 10 mmol/L (8-16); ASPARTATE AMINOTRANSFERASE 11 U/L (15-37); BILIRUBIN,TOTAL 0.4 mg/dL (0.1-1.0); CALCIUM, TOTAL 8.5 mg/dL (8.8-10.5); CARBON DIOXIDE 24 mmol/L (22-29); CHLORIDE 106 mmol/L (98-107); CHOL/HDL RATIO 4.4 (4.2-7.3); CHOLESTEROL 182 mg/dL (131-200); CREATININE 0.86 mg/dL (0.60-1.30); FREE T4 (FREE THYROXINE) 0.89 ng/dL (0.76-1.46); GLOMERULAR FILTR. RATE CALC > 60 mL/min (>60); GLUCOSE,RANDOM 85 mg/dL (70-110); HDL CHOLESTEROL 41 mg/dL (40-60); LDL CHOL (CALC.) 127 mg/dL (0-130); POTASSIUM 4.3 mmol/L (3.5-5.1); SODIUM SERUM 140 mmol/L (136-145); THYROID STIMULATING HORMONE 0.61 uIU/mL (0.36-3.74); TOTAL PROTEIN, SERUM 6.2 g/dL (6.4-8.2); TRIGLYCERIDES 72 mg/dL (15-150); UREA NITROGEN, BLOOD 10 mg/dL (7-18)
[2017-10-03 16:00] VITALS: BP 108/65
[2017-10-03] MEDS: OLANZapine 10 MG TABLET PO SCH (20:46)
[2017-10-03] MEDS: TraZODone HCL 100 MG TABLET PO SCH (20:46)
[2017-10-04 07:02] VITALS: BP 103/63
[2017-10-04 08:03] VITALS: BP 111/76
[2017-10-04] MEDS: NICOTINE 14 MG/24 HOUR PATCH TD SCH (10:04)
[2017-10-04 16:05] VITALS: BP 108/69
[2017-10-04] MEDS: HALOPERIDOL 5 MG TABLET PO PRN (17:06)
[2017-10-04] MEDS: LORazepam 2 MG TABLET PO PRN (17:06)
[2017-10-04] MEDS: TraZODone HCL 100 MG TABLET PO SCH (20:43)
[2017-10-04] MEDS: OLANZapine 10 MG TABLET PO SCH (20:44)
[2017-10-05 06:49] VITALS: BP 112/60
[2017-10-05 08:48] VITALS: BP 100/60
[2017-10-05] MEDS: NICOTINE 14 MG/24 HOUR PATCH TD SCH (09:03)
[2017-10-05 16:27] VITALS: BP 137/94
[2017-10-05] MEDS: HALOPERIDOL 5 MG TABLET PO PRN (17:23)
[2017-10-05] MEDS: LORazepam 2 MG TABLET PO PRN (17:24)
[2017-10-05] MEDS: TraZODone HCL 100 MG TABLET PO SCH (21:19)
[2017-10-05] MEDS: OLANZapine 10 MG TABLET PO SCH (21:19)
[2017-10-06 06:25] VITALS: BP 103/69
[2017-10-06 08:05] VITALS: BP 110/60
[2017-10-06] MEDS: NICOTINE 14 MG/24 HOUR PATCH TD SCH (08:14)
== END 2017-10-06 11:35 | disposition home or self-care (01) | DRG 885 ==
LOC: B3A 18:02
PROVIDERS: ADMIT Psychiatry & Neurology Psychiatry; ATTEND Psychiatry & Neurology Psychiatry
DX: F25.9 Schizoaffective disorder, unspecified (principal); R45.851 Suicidal ideations; E56.9 Vitamin deficiency, unspecified; F10.10 Alcohol abuse, uncomplicated; E55.9 Vitamin D deficiency, unspecified; E78.5 Hyperlipidemia, unspecified; I10 Essential (primary) hypertension; J45.909 Unspecified asthma, uncomplicated; K21.9 Gastro-esophageal reflux disease without esophagitis; Z71.41 Alcohol abuse counseling and surveillance of alcoholic
CPT/HCPCS: 83036; 84439; 84443; 87081; J3535

== ENCOUNTER 2017-10-24 23:38 | Emergency (ER) | payer MEDICARE, OTHER ==
[~2017-10-24] VITALS: Ht 177.8 cm; Wt 81.8 kg
[2017-10-25 00:21] LABS: BASOPHILS % (AUTO) 0.5 % (0.0-2.0); EOSINOPHILS % (AUTO) 1.9 % (1.0-6.0); HEMATOCRIT 43.8 % (41-53); HEMOGLOBIN 15.3 g/dL (13.5-17.5); LYMPHOCYTES # (AUTO) 3.2 K/uL (1.0-4.8); LYMPHOCYTES % (AUTO) 21.9 % (22.0-44.0); MEAN CORPUSCULAR HEMOGLOBIN 30.6 pg (26.0-34.0); MEAN CORPUSCULAR HGB CONC 34.9 G/dL (31.0-37.0); MEAN CORPUSCULAR VOLUME 88 fL (80-100); MONOCYTES # (AUTO) 0.9 K/uL (0.1-1.0); MONOCYTES % (AUTO) 6.3 % (2.0-9.0); NEUTROPHILS # (AUTO) 10.2 K/uL (1.8-7.7); NEUTROPHILS % (AUTO) 69.4 % (40.0-70.0); PLATELET COUNT (AUTO) 367 K/uL (150-450); RED BLOOD CELL COUNT(AUTO) 4.99 MIL/uL (4.50-5.90); RED CELL DISTRIBUTION WIDTH 13.7 % (11.5-14.5)
[2017-10-25 00:26] LABS: ANION GAP 9 mmol/L (8-16); CALCIUM, TOTAL 9.4 mg/dL (8.8-10.5); CARBON DIOXIDE 27 mmol/L (22-29); CHLORIDE 101 mmol/L (98-107); GLOMERULAR FILTR. RATE CALC > 60 mL/min (>60); GLUCOSE,RANDOM 108 mg/dL (70-110); POTASSIUM 3.7 mmol/L (3.5-5.1); SODIUM SERUM 137 mmol/L (136-145); UREA NITROGEN, BLOOD 11 mg/dL (7-18)
[2017-10-25 00:30] LABS: AMPHET/METH SCREEN,URINE POSITIVE (NEGATIVE); BARBITURATE SCREEN, URINE NEGATIVE (NEGATIVE); BENZODIAZEPINES SCREEN,URINE NEGATIVE (NEGATIVE); CANNABINOID SCREEN,URINE NEGATIVE (NEGATIVE); COCAINE SCREEN,URINE NEGATIVE (NEGATIVE); METHADONE SCREEN, URINE NEGATIVE (NEGATIVE); OPIATE SCREEN,URINE NEGATIVE (NEGATIVE); PHENCYCLIDINE SCREEN,URINE NEGATIVE (NEGATIVE)
[2017-10-25 00:34] LABS: ALANINE AMINOTRANSFERASE 27 U/L (12-78); ALBUMIN 4.5 g/dL (3.4-5.0); ALKALINE PHOSPHATASE 104 U/L (46-116); ASPARTATE AMINOTRANSFERASE 14 U/L (15-37); BILIRUBIN,TOTAL 0.7 mg/dL (0.1-1.0); TOTAL PROTEIN, SERUM 8.1 g/dL (6.4-8.2)
[2017-10-25] MEDS ORDERED: LORazepam 2 MG/ML VIAL IM ONE (00:45)
[2017-10-25] MEDS ORDERED: DiphenhydrAMINE HCL 50 MG/ML VIAL IM ONE (00:45)
[2017-10-25] MEDS ORDERED: HALOPERIDOL LACTATE 5 MG/ML VIAL IM ONE (00:45)
[2017-10-25 03:16] VITALS: BP 104/61
== END 2017-10-25 04:41 | disposition home or self-care (01) ==
LOC: EMS 23:40
DX: F20.9 Schizophrenia, unspecified (principal); F15.10 Other stimulant abuse, uncomplicated; F31.9 Bipolar disorder, unspecified; F41.9 Anxiety disorder, unspecified; J45.909 Unspecified asthma, uncomplicated; J44.9 Chronic obstructive pulmonary disease, unspecified; K21.9 Gastro-esophageal reflux disease without esophagitis; F12.90 Cannabis use, unspecified, uncomplicated; F14.90 Cocaine use, unspecified, uncomplicated; F17.210 Nicotine dependence, cigarettes, uncomplicated
CPT/HCPCS: 36415; 80053; 80307; 85025; 96372; 99284; G0480; J1200; J1630; J2060

== ENCOUNTER 2017-10-28 20:15 | Emergency (ER) | payer MEDICARE, OTHER ==
[~2017-10-28] VITALS: Ht 182.9 cm; Wt 80.0 kg
[2017-10-28 20:48] LABS: BASOPHILS % (AUTO) 0.6 % (0.0-2.0); EOSINOPHILS % (AUTO) 1.8 % (1.0-6.0); HEMATOCRIT 42.7 % (41-53); HEMOGLOBIN 14.9 g/dL (13.5-17.5); LYMPHOCYTES # (AUTO) 2.8 K/uL (1.0-4.8); LYMPHOCYTES % (AUTO) 21.4 % (22.0-44.0); MEAN CORPUSCULAR HEMOGLOBIN 30.7 pg (26.0-34.0); MEAN CORPUSCULAR HGB CONC 34.8 G/dL (31.0-37.0); MEAN CORPUSCULAR VOLUME 88 fL (80-100); MONOCYTES # (AUTO) 0.5 K/uL (0.1-1.0); MONOCYTES % (AUTO) 3.9 % (2.0-9.0); NEUTROPHILS # (AUTO) 9.6 K/uL (1.8-7.7); NEUTROPHILS % (AUTO) 72.3 % (40.0-70.0); PLATELET COUNT (AUTO) 350 K/uL (150-450); RED BLOOD CELL COUNT(AUTO) 4.84 MIL/uL (4.50-5.90); RED CELL DISTRIBUTION WIDTH 13.5 % (11.5-14.5)
[2017-10-28 20:56] LABS: ANION GAP 5 mmol/L (8-16); CALCIUM, TOTAL 9.1 mg/dL (8.8-10.5); CARBON DIOXIDE 29 mmol/L (22-29); CHLORIDE 104 mmol/L (98-107); CREATININE 0.88 mg/dL (0.60-1.30); GLOMERULAR FILTR. RATE CALC > 60 mL/min (>60); GLUCOSE,RANDOM 79 mg/dL (70-110); POTASSIUM 3.6 mmol/L (3.5-5.1); SODIUM SERUM 138 mmol/L (136-145); UREA NITROGEN, BLOOD 5 mg/dL (7-18)
[2017-10-28 21:02] LABS: ALANINE AMINOTRANSFERASE 23 U/L (12-78); ALBUMIN 4.2 g/dL (3.4-5.0); ALKALINE PHOSPHATASE 94 U/L (46-116); ASPARTATE AMINOTRANSFERASE 16 U/L (15-37); BILIRUBIN,TOTAL 0.3 mg/dL (0.1-1.0); TOTAL PROTEIN, SERUM 7.5 g/dL (6.4-8.2)
[2017-10-28 21:38] LABS: AMPHET/METH SCREEN,URINE POSITIVE (NEGATIVE); BARBITURATE SCREEN, URINE NEGATIVE (NEGATIVE); BENZODIAZEPINES SCREEN,URINE NEGATIVE (NEGATIVE); CANNABINOID SCREEN,URINE NEGATIVE (NEGATIVE); COCAINE SCREEN,URINE NEGATIVE (NEGATIVE); METHADONE SCREEN, URINE NEGATIVE (NEGATIVE); OPIATE SCREEN,URINE NEGATIVE (NEGATIVE); PHENCYCLIDINE SCREEN,URINE NEGATIVE (NEGATIVE)
[2017-10-29] MEDS ORDERED: HALOPERIDOL 5 MG TABLET PO ONE (01:00)
[2017-10-29] MEDS ORDERED: LORazepam 1 MG TABLET PO ONE (01:00)
[2017-10-29 01:06] VITALS: BP 136/89
== END 2017-10-29 01:08 | disposition home or self-care (01) ==
LOC: EMS 20:17
DX: F25.9 Schizoaffective disorder, unspecified (principal); F15.10 Other stimulant abuse, uncomplicated; F41.9 Anxiety disorder, unspecified; F31.9 Bipolar disorder, unspecified; F20.9 Schizophrenia, unspecified; J45.909 Unspecified asthma, uncomplicated; J44.9 Chronic obstructive pulmonary disease, unspecified; K21.9 Gastro-esophageal reflux disease without esophagitis; F17.210 Nicotine dependence, cigarettes, uncomplicated; F15.90 Other stimulant use, unspecified, uncomplicated; F12.90 Cannabis use, unspecified, uncomplicated; F19.90 Other psychoactive substance use, unspecified, uncomplicated; F14.90 Cocaine use, unspecified, uncomplicated
CPT/HCPCS: 36415; 80053; 80307; 85025; 99284; G0480

== ENCOUNTER 2017-11-10 04:31 | Emergency (ER) | payer MEDICARE, OTHER ==
[~2017-11-10] VITALS: Ht 180.3 cm; Wt 84.1 kg
[2017-11-10 05:23] LABS: AMPHET/METH SCREEN,URINE POSITIVE (NEGATIVE); BARBITURATE SCREEN, URINE NEGATIVE (NEGATIVE); BENZODIAZEPINES SCREEN,URINE NEGATIVE (NEGATIVE); CANNABINOID SCREEN,URINE NEGATIVE (NEGATIVE); COCAINE SCREEN,URINE NEGATIVE (NEGATIVE); METHADONE SCREEN, URINE NEGATIVE (NEGATIVE); OPIATE SCREEN,URINE NEGATIVE (NEGATIVE)
[2017-11-10 05:28] LABS: PHENCYCLIDINE SCREEN,URINE NEGATIVE (NEGATIVE)
[2017-11-10] MEDS ORDERED: LORazepam 1 MG TABLET PO ONE (06:15)
[2017-11-10 06:50] VITALS: BP 119/76
== END 2017-11-10 06:44 | disposition home or self-care (01) ==
LOC: EMS 04:32
DX: F41.9 Anxiety disorder, unspecified (principal); J44.9 Chronic obstructive pulmonary disease, unspecified; J45.909 Unspecified asthma, uncomplicated; K21.9 Gastro-esophageal reflux disease without esophagitis; F15.10 Other stimulant abuse, uncomplicated; F12.90 Cannabis use, unspecified, uncomplicated; F14.90 Cocaine use, unspecified, uncomplicated; F17.210 Nicotine dependence, cigarettes, uncomplicated
CPT/HCPCS: 93005; 99285

== ENCOUNTER 2017-12-13 23:10 | Emergency (ER) | payer MEDICARE, OTHER ==
[~2017-12-13] VITALS: Ht 177.8 cm; Wt 79.5 kg
[~2017-12-13 23:10] MED LIST changes: -TRAZ-147 PO; +TRAZ-220 PO
[2017-12-14 00:02] LABS: BASOPHILS % (AUTO) 0.4 % (0.0-2.0); EOSINOPHILS % (AUTO) 1.1 % (1.0-6.0); HEMATOCRIT 45.1 % (41-53); HEMOGLOBIN 15.3 g/dL (13.5-17.5); LYMPHOCYTES # (AUTO) 2.5 K/uL (1.0-4.8); LYMPHOCYTES % (AUTO) 17.1 % (22.0-44.0); MEAN CORPUSCULAR HGB CONC 33.9 G/dL (31.0-37.0); MEAN CORPUSCULAR VOLUME 89 fL (80-100); MONOCYTES % (AUTO) 6.7 % (2.0-9.0); NEUTROPHILS # (AUTO) 10.8 K/uL (1.8-7.7); NEUTROPHILS % (AUTO) 74.7 % (40.0-70.0); PLATELET COUNT (AUTO) 337 K/uL (150-450); RED CELL DISTRIBUTION WIDTH 14.4 % (11.5-14.5)
[2017-12-14 00:05] LABS: ANION GAP 10 mmol/L (8-16); CALCIUM, TOTAL 9.4 mg/dL (8.8-10.5); CARBON DIOXIDE 26 mmol/L (22-29); CHLORIDE 100 mmol/L (98-107); CREATININE 1.17 mg/dL (0.60-1.30); GLOMERULAR FILTR. RATE CALC > 60 mL/min (>60); GLUCOSE,RANDOM 122 mg/dL (70-110); POTASSIUM 3.9 mmol/L (3.5-5.1); SODIUM SERUM 136 mmol/L (136-145); UREA NITROGEN, BLOOD 16 mg/dL (7-18)
[2017-12-14 00:11] LABS: ALANINE AMINOTRANSFERASE 28 U/L (12-78); ALBUMIN 4.5 g/dL (3.4-5.0); ALKALINE PHOSPHATASE 94 U/L (46-116); ASPARTATE AMINOTRANSFERASE 14 U/L (15-37); BILIRUBIN,TOTAL 0.5 mg/dL (0.1-1.0); TOTAL PROTEIN, SERUM 7.9 g/dL (6.4-8.2)
[2017-12-14 01:14] LABS: AMPHET/METH SCREEN,URINE POSITIVE (NEGATIVE); BARBITURATE SCREEN, URINE NEGATIVE (NEGATIVE); BENZODIAZEPINES SCREEN,URINE NEGATIVE (NEGATIVE); CANNABINOID SCREEN,URINE NEGATIVE (NEGATIVE); COCAINE SCREEN,URINE NEGATIVE (NEGATIVE); METHADONE SCREEN, URINE NEGATIVE (NEGATIVE); OPIATE SCREEN,URINE NEGATIVE (NEGATIVE)
[2017-12-14 01:24] LABS: PHENCYCLIDINE SCREEN,URINE NEGATIVE (NEGATIVE)
[2017-12-14] MEDS ORDERED: HALOPERIDOL 5 MG TABLET PO ONE (05:30)
[2017-12-14 06:42] VITALS: BP 108/71
== END 2017-12-14 06:45 | disposition home or self-care (01) ==
LOC: EMS 23:12
DX: F25.9 Schizoaffective disorder, unspecified (principal); F31.9 Bipolar disorder, unspecified; J44.9 Chronic obstructive pulmonary disease, unspecified; J45.909 Unspecified asthma, uncomplicated; K21.9 Gastro-esophageal reflux disease without esophagitis; F15.10 Other stimulant abuse, uncomplicated; F12.90 Cannabis use, unspecified, uncomplicated; F14.90 Cocaine use, unspecified, uncomplicated; F17.210 Nicotine dependence, cigarettes, uncomplicated
CPT/HCPCS: 36415; 80053; 80307; 85025; 99284; 99406; G0480

== ENCOUNTER 2017-12-21 21:59 | Emergency (ER) | payer MEDICARE, OTHER ==
[~2017-12-21] VITALS: Ht 172.7 cm; Wt 72.0 kg
[2017-12-21 23:15] LABS: BASOPHILS % (AUTO) 0.7 % (0.0-2.0); EOSINOPHILS % (AUTO) 2.5 % (1.0-6.0); HEMATOCRIT 45.3 % (41-53); HEMOGLOBIN 15.5 g/dL (13.5-17.5); LYMPHOCYTES # (AUTO) 3.1 K/uL (1.0-4.8); LYMPHOCYTES % (AUTO) 24.7 % (22.0-44.0); MEAN CORPUSCULAR HEMOGLOBIN 30.2 pg (26.0-34.0); MEAN CORPUSCULAR HGB CONC 34.1 G/dL (31.0-37.0); MEAN CORPUSCULAR VOLUME 88 fL (80-100); MONOCYTES # (AUTO) 0.9 K/uL (0.1-1.0); MONOCYTES % (AUTO) 6.8 % (2.0-9.0); NEUTROPHILS # (AUTO) 8.3 K/uL (1.8-7.7); NEUTROPHILS % (AUTO) 65.3 % (40.0-70.0); PLATELET COUNT (AUTO) 336 K/uL (150-450); RED BLOOD CELL COUNT(AUTO) 5.12 MIL/uL (4.50-5.90); RED CELL DISTRIBUTION WIDTH 13.8 % (11.5-14.5)
[2017-12-21 23:25] LABS: ANION GAP 11 mmol/L (8-16); CALCIUM, TOTAL 9.3 mg/dL (8.8-10.5); CARBON DIOXIDE 25 mmol/L (22-29); CHLORIDE 103 mmol/L (98-107); CREATININE 1.04 mg/dL (0.60-1.30); GLOMERULAR FILTR. RATE CALC > 60 mL/min (>60); GLUCOSE,RANDOM 98 mg/dL (70-110); POTASSIUM 3.6 mmol/L (3.5-5.1); SODIUM SERUM 139 mmol/L (136-145); UREA NITROGEN, BLOOD 12 mg/dL (7-18)
[2017-12-21 23:29] LABS: ALANINE AMINOTRANSFERASE 20 U/L (12-78); ALBUMIN 4.2 g/dL (3.4-5.0); ALKALINE PHOSPHATASE 101 U/L (46-116); ASPARTATE AMINOTRANSFERASE 11 U/L (15-37); BILIRUBIN,TOTAL 0.5 mg/dL (0.1-1.0); TOTAL PROTEIN, SERUM 7.7 g/dL (6.4-8.2)
[2017-12-21 23:41] LABS: APPEARANCE,URINE CLOUDY (CLEAR); BILIRUBIN,URINE NEGATIVE (NEGATIVE); GLUCOSE, URINE (UA) NEGATIVE (NEGATIVE); KETONES,URINE TRACE mg/dL (NEGATIVE); LEUKOCYTE ESTERASE ,URINE NEGATIVE (NEGATIVE); NITRATE,URINE NEGATIVE (NEGATIVE); OCCULT BLOOD,URINE NEGATIVE (NEGATIVE); PH,URINE 5.5 (5.0-8.0); PROTEIN,URINE NEGATIVE (NEGATIVE)
[2017-12-21 23:44] LABS: AMPHET/METH SCREEN,URINE POSITIVE (NEGATIVE); BARBITURATE SCREEN, URINE NEGATIVE (NEGATIVE); BENZODIAZEPINES SCREEN,URINE NEGATIVE (NEGATIVE); CANNABINOID SCREEN,URINE NEGATIVE (NEGATIVE); COCAINE SCREEN,URINE NEGATIVE (NEGATIVE); METHADONE SCREEN, URINE NEGATIVE (NEGATIVE); OPIATE SCREEN,URINE NEGATIVE (NEGATIVE); PHENCYCLIDINE SCREEN,URINE NEGATIVE (NEGATIVE)
[2017-12-22] MEDS: HALOPERIDOL 5 MG TABLET PO ONE (00:03)
[2017-12-22] MEDS: LORazepam 2 MG TABLET PO ONE (00:03)
[2017-12-22 00:40] VITALS: BP 120/77
== END 2017-12-22 00:49 | disposition home or self-care (01) ==
LOC: EMS 22:00
DX: F15.180 Other stimulant abuse with stimulant-induced anxiety disorder (principal); F12.10 Cannabis abuse, uncomplicated; J45.909 Unspecified asthma, uncomplicated; F31.9 Bipolar disorder, unspecified; J44.9 Chronic obstructive pulmonary disease, unspecified; K21.9 Gastro-esophageal reflux disease without esophagitis; F20.9 Schizophrenia, unspecified; F17.210 Nicotine dependence, cigarettes, uncomplicated; Z79.899 Other long term (current) drug therapy; Z71.6 Tobacco abuse counseling
CPT/HCPCS: 36415; 80053; 80307; 81003; 85025; 99284; 99406; G0480

== ENCOUNTER 2018-01-03 19:49 | Inpatient (IN) | payer MEDICARE, MEDICAID ==
[~2018-01-03] VITALS: Ht 177.8 cm; Wt 83.5 kg
[2018-01-03] MEDS ORDERED: HALOPERIDOL 5 MG TABLET PO PRN (20:45)
[2018-01-03] MEDS ORDERED: ZOLPIDEM TARTRATE 10 MG TABLET PO PRN (20:45)
[2018-01-03 21:05] VITALS: BP 106/63
[2018-01-03 21:22] VITALS: BP 133/60
[2018-01-03] MEDS: LORazepam 2 MG TABLET PO PRN (21:37)
[2018-01-03] MEDS ORDERED: -PHARMACY VACCINE NOTE- MISC ONE (22:15)
[2018-01-04 02:30] VITALS: BP 102/61
[2018-01-04 07:27] LABS: BASOPHILS % (AUTO) 0.6 % (0.0-2.0); HEMOGLOBIN 14.4 g/dL (13.5-17.5); LYMPHOCYTES # (AUTO) 2.3 K/uL (1.0-4.8); LYMPHOCYTES % (AUTO) 27.5 % (22.0-44.0); MEAN CORPUSCULAR HEMOGLOBIN 30.4 pg (26.0-34.0); MEAN CORPUSCULAR HGB CONC 34.3 G/dL (31.0-37.0); MEAN CORPUSCULAR VOLUME 89 fL (80-100); MONOCYTES % (AUTO) 11.4 % (2.0-9.0); NEUTROPHILS # (AUTO) 4.7 K/uL (1.8-7.7); NEUTROPHILS % (AUTO) 55.5 % (40.0-70.0); PLATELET COUNT (AUTO) 275 K/uL (150-450); RED BLOOD CELL COUNT(AUTO) 4.74 MIL/uL (4.50-5.90); RED CELL DISTRIBUTION WIDTH 13.7 % (11.5-14.5)
[2018-01-04 07:33] LABS: AMPHET/METH SCREEN,URINE POSITIVE (NEGATIVE); BARBITURATE SCREEN, URINE NEGATIVE (NEGATIVE); BENZODIAZEPINES SCREEN,URINE NEGATIVE (NEGATIVE); CANNABINOID SCREEN,URINE NEGATIVE (NEGATIVE); COCAINE SCREEN,URINE NEGATIVE (NEGATIVE); METHADONE SCREEN, URINE NEGATIVE (NEGATIVE); OPIATE SCREEN,URINE NEGATIVE (NEGATIVE)
[2018-01-04 07:35] LABS: PHENCYCLIDINE SCREEN,URINE NEGATIVE (NEGATIVE)
[2018-01-04 07:43] LABS: HEMOGLOBIN A1C 5.4 % (4.5-6.2)
[2018-01-04 07:55] LABS: APPEARANCE,URINE TURBID (CLEAR); GLUCOSE, URINE (UA) NEGATIVE (NEGATIVE); KETONES,URINE TRACE mg/dL (NEGATIVE); LEUKOCYTE ESTERASE ,URINE NEGATIVE (NEGATIVE); NITRATE,URINE NEGATIVE (NEGATIVE); OCCULT BLOOD,URINE NEGATIVE (NEGATIVE); PH,URINE 5.5 (5.0-8.0); PROTEIN,URINE NEGATIVE (NEGATIVE)
[2018-01-04 08:05] LABS: BILIRUBIN,URINE PRELIM. POSITIVE (NEGATIVE)
[2018-01-04 08:06] LABS: ALANINE AMINOTRANSFERASE 17 U/L (12-78); ALBUMIN 3.4 g/dL (3.4-5.0); ALKALINE PHOSPHATASE 99 U/L (46-116); ANION GAP 8 mmol/L (8-16); ASPARTATE AMINOTRANSFERASE 18 U/L (15-37); BILIRUBIN,TOTAL 0.3 mg/dL (0.1-1.0); CALCIUM, TOTAL 8.4 mg/dL (8.8-10.5); CARBON DIOXIDE 25 mmol/L (22-29); CHLORIDE 106 mmol/L (98-107); CHOL/HDL RATIO 4.9 (4.2-7.3); CHOLESTEROL 148 mg/dL (131-200); CREATININE 0.87 mg/dL (0.60-1.30); GLOMERULAR FILTR. RATE CALC > 60 mL/min (>60); GLUCOSE,RANDOM 92 mg/dL (70-110); HCG,QUANTITATIVE < 1 mIU/mL (0-6); HDL CHOLESTEROL 30 mg/dL (40-60); LDL CHOL (CALC.) 90 mg/dL (0-130); POTASSIUM 3.5 mmol/L (3.5-5.1); SODIUM SERUM 139 mmol/L (136-145); THYROID STIMULATING HORMONE 1.71 uIU/mL (0.36-3.74); TRIGLYCERIDES 142 mg/dL (15-150); UREA NITROGEN, BLOOD 11 mg/dL (7-18)
[2018-01-04 08:14] LABS: BACTERIA,URINE Few /HPF (None Seen); CALCIUM OXALATE CRYSTALS,UR Few /LPF (None Seen); RBC,URINE None Seen /HPF (0-2); SQUAMOUS EPITHELIAL CELL,UR Rare /LPF (None Seen); WBC,URINE None Seen /HPF (0-5)
[2018-01-04 08:29] VITALS: BP 106/67
[2018-01-04] MEDS: NICOTINE 21 MG/24 HOUR PATCH TD SCH (09:11)
[2018-01-04] MEDS ORDERED: IBUPROFEN 600 MG TABLET PO PRN (12:15)
[2018-01-04] MEDS ORDERED: BENZOCAINE/MENTHOL LOZENGE MM PRN (12:15)
[2018-01-04] MEDS ORDERED: MAGNESIUM HYDROXIDE SUSPENSION 30 ML UDCUP PO PRN (12:15)
[2018-01-04] MEDS ORDERED: PETROLATUM,WHITE 71 GM JELLY TP PRN (12:15)
[2018-01-04] MEDS ORDERED: MAG HYDROX/AL HYDROX/SIMETH ES 30 ML SUSPENSION UDCUP PO PRN (12:15)
[2018-01-04] MEDS ORDERED: ONDANSETRON HCL 4 MG TABLET PO PRN (12:15)
[2018-01-04] MEDS ORDERED: LOPERAMIDE HCL 2 MG CAPSULE PO PRN (12:15)
[2018-01-04] MEDS ORDERED: BACITRACIN 28.4 GM OINTMENT TP PRN (12:15)
[2018-01-04] MEDS ORDERED: CloNIDine HCL 0.1 MG TABLET PO PRN (12:15)
[2018-01-04] MEDS ORDERED: ACETAMINOPHEN 325 MG TABLET PO PRN (12:15)
[2018-01-04 16:45] VITALS: BP 110/66
[2018-01-04] MEDS: TraZODone HCL 100 MG TABLET PO SCH (20:25)
[2018-01-04] MEDS: OLANZapine 10 MG TABLET PO SCH (20:25)
[2018-01-05 02:28] VITALS: BP 112/68
[2018-01-05 08:15] VITALS: BP 105/65
[2018-01-05] MEDS: CHOLECALCIFEROL (VIT D3) 1,000 UNITS TABLET PO SCH (08:24)
[2018-01-05] MEDS: NICOTINE 21 MG/24 HOUR PATCH TD SCH (08:24)
[2018-01-05] MEDS: ALBUTEROL SULFATE HFA 90 MCG/PUFF 8 GM INHALER IH PRN (16:31)
[2018-01-05] MEDS: TraZODone HCL 100 MG TABLET PO SCH (20:17)
[2018-01-05] MEDS: OLANZapine 10 MG TABLET PO SCH (20:17)
[2018-01-05 20:20] VITALS: BP 108/68
[2018-01-06 06:17] VITALS: BP 110/70
[2018-01-06 08:56] VITALS: BP 102/68
[2018-01-06] MEDS: NICOTINE 21 MG/24 HOUR PATCH TD SCH (10:19)
[2018-01-06] MEDS: CHOLECALCIFEROL (VIT D3) 1,000 UNITS TABLET PO SCH (10:19)
[2018-01-06] MEDS: ALBUTEROL SULFATE HFA 90 MCG/PUFF 8 GM INHALER IH PRN (14:31)
[2018-01-06 16:29] VITALS: BP 126/63
[2018-01-06] MEDS: LORazepam 2 MG TABLET PO PRN (17:30)
[2018-01-06] MEDS: OLANZapine 10 MG TABLET PO SCH (20:07)
[2018-01-06] MEDS: TraZODone HCL 100 MG TABLET PO SCH (20:07)
[2018-01-07 02:43] VITALS: BP 104/62
[2018-01-07 08:36] VITALS: BP 109/63
[2018-01-07] MEDS: CHOLECALCIFEROL (VIT D3) 1,000 UNITS TABLET PO SCH (09:28)
[2018-01-07] MEDS: NICOTINE 21 MG/24 HOUR PATCH TD SCH (09:29)
[2018-01-07] MEDS: ALBUTEROL SULFATE HFA 90 MCG/PUFF 8 GM INHALER IH PRN (18:01)
[2018-01-07 18:24] VITALS: BP 108/60
[2018-01-07] MEDS: OLANZapine 10 MG TABLET PO SCH (20:03)
[2018-01-07] MEDS: TraZODone HCL 100 MG TABLET PO SCH (20:03)
[2018-01-08 02:26] VITALS: BP 103/65
[2018-01-08 08:40] VITALS: BP 116/68
[2018-01-08] MEDS: NICOTINE 21 MG/24 HOUR PATCH TD SCH (09:49)
[2018-01-08] MEDS: CHOLECALCIFEROL (VIT D3) 1,000 UNITS TABLET PO SCH (09:49)
[2018-01-08] MEDS: ALBUTEROL SULFATE HFA 90 MCG/PUFF 8 GM INHALER IH PRN (17:36)
[2018-01-08 17:48] VITALS: BP 105/67
[2018-01-08] MEDS: TraZODone HCL 100 MG TABLET PO SCH (20:00)
[2018-01-08] MEDS: OLANZapine 10 MG TABLET PO SCH (20:00)
[2018-01-09 01:15] VITALS: BP 102/63
[2018-01-09 08:43] VITALS: BP 99/58
[2018-01-09] MEDS ORDERED: VITAD1000 PO (09:26)
[2018-01-09] MEDS: CHOLECALCIFEROL (VIT D3) 1,000 UNITS TABLET PO SCH (09:30)
[2018-01-09] MEDS: NICOTINE 21 MG/24 HOUR PATCH TD SCH (09:30)
== END 2018-01-09 13:25 | disposition home or self-care (01) | DRG 885 ==
LOC: B2S 20:10
PROVIDERS: ADMIT Psychiatry & Neurology Psychiatry; ATTEND Psychiatry & Neurology Psychiatry
DX: F25.9 Schizoaffective disorder, unspecified (principal); E55.9 Vitamin D deficiency, unspecified; E78.5 Hyperlipidemia, unspecified; F15.10 Other stimulant abuse, uncomplicated; F17.200 Nicotine dependence, unspecified, uncomplicated; F31.9 Bipolar disorder, unspecified; G47.00 Insomnia, unspecified; J44.9 Chronic obstructive pulmonary disease, unspecified; K21.9 Gastro-esophageal reflux disease without esophagitis; K59.00 Constipation, unspecified; Z71.6 Tobacco abuse counseling
CPT/HCPCS: 80307; 83036; 84443; J3535

== ENCOUNTER 2018-11-08 20:41 | Inpatient (IN) | payer MEDICARE, MEDICAID ==
[~2018-11-08] VITALS: Ht 177.8 cm; Wt 93.4 kg
[~2018-11-08 20:41] MED LIST changes: +MUPI15CR12 TP; +OLAN10TA3 PO; -OLAN20TA2 PO
[2018-11-08 21:12] VITALS: BP 116/77
[2018-11-08] MEDS ORDERED: ZOLPIDEM TARTRATE 10 MG TABLET PO PRN (21:30)
[2018-11-08] MEDS ORDERED: HALOPERIDOL 5 MG TABLET PO PRN (21:30)
[2018-11-08 21:57] VITALS: BP 123/66
[2018-11-09 00:32] VITALS: BP 112/85
[2018-11-09] MEDS: ALBUTEROL SULFATE HFA 90 MCG/PUFF 8 GM INHALER IH PRN ×4 (01:08→16:05)
[2018-11-09 08:10] LABS: BASOPHILS % (AUTO) 0.4 % (0.0-2.0); EOSINOPHILS % (AUTO) 2.8 % (1.0-6.0); HEMATOCRIT 39.4 % (41-53); HEMOGLOBIN 13.8 g/dL (13.5-17.5); LYMPHOCYTES # (AUTO) 2.3 K/uL (1.0-4.8); LYMPHOCYTES % (AUTO) 21.6 % (22.0-44.0); MEAN CORPUSCULAR HEMOGLOBIN 31.4 pg (26.0-34.0); MEAN CORPUSCULAR HGB CONC 34.9 G/dL (31.0-37.0); MEAN CORPUSCULAR VOLUME 90 fL (80-100); MONOCYTES # (AUTO) 0.8 K/uL (0.1-1.0); MONOCYTES % (AUTO) 7.5 % (2.0-9.0); NEUTROPHILS # (AUTO) 7.3 K/uL (1.8-7.7); NEUTROPHILS % (AUTO) 67.7 % (40.0-70.0); PLATELET COUNT (AUTO) 257 K/uL (150-450); RED BLOOD CELL COUNT(AUTO) 4.38 MIL/uL (4.50-5.90); RED CELL DISTRIBUTION WIDTH 13.2 % (11.5-14.5)
[2018-11-09 08:26] LABS: AMPHET/METH SCREEN,URINE NEGATIVE (NEGATIVE); BARBITURATE SCREEN, URINE NEGATIVE (NEGATIVE); BENZODIAZEPINES SCREEN,URINE NEGATIVE (NEGATIVE); CANNABINOID SCREEN,URINE NEGATIVE (NEGATIVE); COCAINE SCREEN,URINE NEGATIVE (NEGATIVE); METHADONE SCREEN, URINE NEGATIVE (NEGATIVE); OPIATE SCREEN,URINE NEGATIVE (NEGATIVE)
[2018-11-09 08:28] LABS: PHENCYCLIDINE SCREEN,URINE NEGATIVE (NEGATIVE)
[2018-11-09 08:36] VITALS: BP 99/57
[2018-11-09 08:36] LABS: ALANINE AMINOTRANSFERASE 26 U/L (12-78); ALBUMIN 3.3 g/dL (3.4-5.0); ALKALINE PHOSPHATASE 72 U/L (46-116); ANION GAP 10 mmol/L (8-16); ASPARTATE AMINOTRANSFERASE 14 U/L (15-37); BILIRUBIN,TOTAL 0.4 mg/dL (0.1-1.0); CALCIUM, TOTAL 8.7 mg/dL (8.8-10.5); CARBON DIOXIDE 24 mmol/L (22-29); CHLORIDE 109 mmol/L (98-107); CHOL/HDL RATIO 4.6 (4.2-7.3); CHOLESTEROL 213 mg/dL (131-200); CREATININE 0.79 mg/dL (0.60-1.30); FREE T4 (FREE THYROXINE) 0.91 ng/dL (0.76-1.46); GLOMERULAR FILTR. RATE CALC > 60 mL/min (>60); GLUCOSE,RANDOM 86 mg/dL (70-110); HDL CHOLESTEROL 46 mg/dL (40-60); LDL CHOL (CALC.) 141 mg/dL (0-130); POTASSIUM 3.7 mmol/L (3.5-5.1); SODIUM SERUM 143 mmol/L (136-145); THYROID STIMULATING HORMONE 2.31 uIU/mL (0.36-3.74); TOTAL PROTEIN, SERUM 6.2 g/dL (6.4-8.2); TRIGLYCERIDES 130 mg/dL (15-150); UREA NITROGEN, BLOOD 10 mg/dL (7-18)
[2018-11-09 08:38] LABS: APPEARANCE,URINE CLEAR (CLEAR); BILIRUBIN,URINE NEGATIVE (NEGATIVE); GLUCOSE, URINE (UA) NEGATIVE (NEGATIVE); KETONES,URINE NEGATIVE (NEGATIVE); LEUKOCYTE ESTERASE ,URINE NEGATIVE (NEGATIVE); NITRATE,URINE NEGATIVE (NEGATIVE); OCCULT BLOOD,URINE NEGATIVE (NEGATIVE); PROTEIN,URINE NEGATIVE (NEGATIVE); UROBILINOGEN,URINE 0.2 mg/dL (<=1.0)
[2018-11-09] MEDS: NICOTINE 21 MG/24 HOUR PATCH TD SCH (08:39)
[2018-11-09] MEDS: LORazepam 2 MG TABLET PO PRN (12:33)
[2018-11-09 17:00] VITALS: BP 126/65
[2018-11-09] MEDS ORDERED: BENZOCAINE/MENTHOL LOZENGE PO PRN (19:00)
[2018-11-09] MEDS: GuaiFENesin/D-METHORPHAN [SUGAR-FREE] 200-20MG/10 ML SYRUP UDCUP PO PRN (19:14)
[2018-11-09] MEDS: OLANZapine 10 MG TABLET PO SCH (20:48)
[2018-11-09] MEDS: TraZODone HCL 100 MG TABLET PO SCH (20:48)
[2018-11-10] MEDS: ALBUTEROL SULFATE HFA 90 MCG/PUFF 8 GM INHALER IH PRN ×4 (00:12→21:35)
[2018-11-10 00:20] VITALS: BP 100/68
[2018-11-10] MEDS: GuaiFENesin/D-METHORPHAN [SUGAR-FREE] 200-20MG/10 ML SYRUP UDCUP PO PRN ×2 (02:39→14:08)
[2018-11-10] MEDS ORDERED: IBUPROFEN 600 MG TABLET PO PRN (04:15)
[2018-11-10] MEDS ORDERED: BACITRACIN 28.4 GM OINTMENT TP PRN (04:15)
[2018-11-10] MEDS ORDERED: CloNIDine HCL 0.1 MG TABLET PO PRN (04:15)
[2018-11-10] MEDS ORDERED: MAGNESIUM HYDROXIDE SUSPENSION 30 ML UDCUP PO PRN (04:15)
[2018-11-10] MEDS ORDERED: LOPERAMIDE HCL 2 MG CAPSULE PO PRN (04:15)
[2018-11-10] MEDS ORDERED: PETROLATUM,WHITE 28 GM JELLY TP PRN (04:15)
[2018-11-10] MEDS ORDERED: ONDANSETRON HCL 4 MG TABLET PO PRN (04:15)
[2018-11-10] MEDS ORDERED: MAG HYDROX/AL HYDROX/SIMETH ES 30 ML SUSPENSION UDCUP PO PRN (04:15)
[2018-11-10] MEDS: DOCUSATE SODIUM 100 MG CAPSULE PO SCH (08:18)
[2018-11-10] MEDS: NICOTINE 21 MG/24 HOUR PATCH TD SCH (08:19)
[2018-11-10] MEDS: ACETAMINOPHEN 325 MG TABLET PO PRN ×2 (08:19→14:08)
[2018-11-10 08:36] VITALS: BP 107/62
[2018-11-10 14:08] VITALS: BP 104/64
[2018-11-10] MEDS ORDERED: ALBU8HFA IH (15:47)
[2018-11-10] MEDS: TraZODone HCL 100 MG TABLET PO SCH (21:25)
[2018-11-10] MEDS: OLANZapine 10 MG TABLET PO SCH (21:25)
[2018-11-10 21:35] VITALS: BP 100/73
[2018-11-10] MEDS ORDERED: AZITHROMYCIN 250 MG TABLET PO ONE ×2 (22:45)
[2018-11-11 01:56] VITALS: BP 133/63
[2018-11-11] MEDS: ACETAMINOPHEN 325 MG TABLET PO PRN (02:03)
[2018-11-11] MEDS: ALBUTEROL SULFATE HFA 90 MCG/PUFF 8 GM INHALER IH PRN ×3 (02:03→20:14)
[2018-11-11 03:40] VITALS: BP 101/60
[2018-11-11 08:42] VITALS: BP 98/60
[2018-11-11] MEDS: DOCUSATE SODIUM 100 MG CAPSULE PO SCH (09:13)
[2018-11-11] MEDS: AZITHROMYCIN 250 MG TABLET PO SCH (09:14)
[2018-11-11] MEDS: NICOTINE 21 MG/24 HOUR PATCH TD SCH (09:14)
[2018-11-11] MEDS: LORazepam 2 MG TABLET PO PRN (13:58)
[2018-11-11 16:12] VITALS: BP 107/67
[2018-11-11] MEDS: TraZODone HCL 100 MG TABLET PO SCH (20:34)
[2018-11-11] MEDS: OLANZapine 10 MG TABLET PO SCH (20:34)
[2018-11-12 06:05] VITALS: BP 100/62
[2018-11-12 08:13] VITALS: BP 109/68
[2018-11-12] MEDS: NICOTINE 21 MG/24 HOUR PATCH TD SCH (08:28)
[2018-11-12] MEDS: AZITHROMYCIN 250 MG TABLET PO SCH (08:28)
[2018-11-12] MEDS: DOCUSATE SODIUM 100 MG CAPSULE PO SCH (08:28)
[2018-11-12] MEDS ORDERED: AZITHROMYCIN 250 MG TABLET PO SCH (09:00)
[2018-11-12] MEDS: ALBUTEROL SULFATE HFA 90 MCG/PUFF 8 GM INHALER IH PRN (10:57)
[2018-11-12 16:22] VITALS: BP 101/62
[2018-11-12] MEDS: OLANZapine 10 MG TABLET PO SCH (20:44)
[2018-11-12] MEDS: TraZODone HCL 100 MG TABLET PO SCH (20:44)
[2018-11-13 02:25] VITALS: BP 110/70
[2018-11-13] MEDS: ALBUTEROL SULFATE HFA 90 MCG/PUFF 8 GM INHALER IH PRN ×2 (02:28→11:06)
[2018-11-13 06:22] VITALS: BP 110/70
[2018-11-13 08:12] VITALS: BP 101/64
[2018-11-13] MEDS: AZITHROMYCIN 250 MG TABLET PO SCH (08:33)
[2018-11-13] MEDS: DOCUSATE SODIUM 100 MG CAPSULE PO SCH (08:33)
[2018-11-13] MEDS: NICOTINE 21 MG/24 HOUR PATCH TD SCH (08:33)
[2018-11-13] MEDS: LORazepam 2 MG TABLET PO PRN (13:26)
[2018-11-13] MEDS ORDERED: IPRATROPIUM BROMIDE 0.5 MG/2.5 ML NEB SOLUTION NEB PRN (13:45)
[2018-11-13] MEDS ORDERED: ALBUTEROL SULFATE 2.5 MG/0.5 ML NEB SOLUTION NEB PRN (13:45)
[2018-11-13 17:56] VITALS: BP 108/60
[2018-11-13] MEDS: TraZODone HCL 100 MG TABLET PO SCH (20:10)
[2018-11-13] MEDS: OLANZapine 10 MG TABLET PO SCH (20:10)
[2018-11-13] MEDS ORDERED: SIMVASTATIN 10 MG TABLET PO SCH (21:00)
[2018-11-14 02:43] VITALS: BP 122/72
[2018-11-14] MEDS: ALBUTEROL SULFATE HFA 90 MCG/PUFF 8 GM INHALER IH PRN (02:48)
[2018-11-14] MEDS: DOCUSATE SODIUM 100 MG CAPSULE PO SCH (08:06)
[2018-11-14] MEDS: AZITHROMYCIN 250 MG TABLET PO SCH (08:06)
[2018-11-14] MEDS: NICOTINE 21 MG/24 HOUR PATCH TD SCH (08:07)
[2018-11-14 08:25] VITALS: BP 124/63
[2018-11-14] MEDS ORDERED: NICO-704 TD (08:29)
[2018-11-14] MEDS ORDERED: AZIT250T PO (08:29)
[2018-11-14] MEDS ORDERED: OMEG-135 PO (08:29)
[2018-11-14] MEDS ORDERED: DOCU100C33 PO (08:29)
[2018-11-14] MEDS ORDERED: SIMV-259 PO (08:29)
[2018-11-14] MEDS ORDERED: OMEGA-3/DHA/EPA/FISH OIL 1,000 MG CAPSULE PO SCH (09:00)
== END 2018-11-14 10:20 | disposition home or self-care (01) | DRG 885 ==
LOC: B2S 21:30 → UNDOADMIN 21:30
PROVIDERS: ADMIT Psychiatry & Neurology Psychiatry; ATTEND Psychiatry & Neurology Psychiatry
DX: F25.9 Schizoaffective disorder, unspecified (principal); E55.9 Vitamin D deficiency, unspecified; E78.00 Pure hypercholesterolemia, unspecified; F15.10 Other stimulant abuse, uncomplicated; F17.200 Nicotine dependence, unspecified, uncomplicated; J44.9 Chronic obstructive pulmonary disease, unspecified; K21.9 Gastro-esophageal reflux disease without esophagitis; K59.00 Constipation, unspecified; M79.672 Pain in left foot; Z79.899 Other long term (current) drug therapy; Z71.51 Drug abuse counseling and surveillance of drug abuser; Z71.6 Tobacco abuse counseling
CPT/HCPCS: 80307; 84439; 84443; 87081; J3535; Q0162

== ENCOUNTER 2018-11-10 15:33 | Emergency (ER) | payer MEDICARE, OTHER ==
[~2018-11-10] VITALS: Ht 177.8 cm; Wt 100.0 kg
[2018-11-10] MEDS ORDERED: ALBU8HFA IH (15:47)
[2018-11-10] MEDS ORDERED: ALBUTEROL SULFATE 2.5 MG/0.5 ML NEB SOLUTION NEB ONE (17:15)
[2018-11-10] MEDS ORDERED: IPRATROPIUM BROMIDE 0.5 MG/2.5 ML NEB SOLUTION NEB ONE (17:15)
[2018-11-10 18:53] LABS: INFLUENZA TYPE A NEGATIVE FOR TYPE A (NEGATIVE); INFLUENZA TYPE B NEGATIVE FOR TYPE B (NEGATIVE)
[2018-11-10] MEDS ORDERED: ACETAMINOPHEN 325 MG TABLET PO ONE (19:45)
[2018-11-10 20:15] VITALS: BP 122/74
== END 2018-11-10 21:00 | disposition home or self-care (01) ==
LOC: EDUNIT# 15:33 → EMS 15:35
DX: J40 Bronchitis, not specified as acute or chronic (principal); M79.10 Myalgia, unspecified site; F41.9 Anxiety disorder, unspecified; J45.909 Unspecified asthma, uncomplicated; F31.9 Bipolar disorder, unspecified; K21.9 Gastro-esophageal reflux disease without esophagitis; F20.9 Schizophrenia, unspecified; F17.210 Nicotine dependence, cigarettes, uncomplicated
CPT/HCPCS: 87804; 94640

== ENCOUNTER 2018-11-19 20:34 | Emergency (ER) | payer MEDICARE, OTHER ==
[~2018-11-19] VITALS: Ht 177.8 cm; Wt 90.9 kg
[~2018-11-19 20:34] MED LIST changes: +ALBU8HFA IH; +DOCU100C33 PO; -MUPI15CR12 TP; +NICO-704 TD; +OMEG-135 PO; +SIMV-259 PO
[2018-11-19 21:39] LABS: AMPHET/METH SCREEN,URINE NEGATIVE (NEGATIVE); BARBITURATE SCREEN, URINE NEGATIVE (NEGATIVE); BENZODIAZEPINES SCREEN,URINE NEGATIVE (NEGATIVE); CANNABINOID SCREEN,URINE NEGATIVE (NEGATIVE); COCAINE SCREEN,URINE NEGATIVE (NEGATIVE); METHADONE SCREEN, URINE NEGATIVE (NEGATIVE); OPIATE SCREEN,URINE NEGATIVE (NEGATIVE); PHENCYCLIDINE SCREEN,URINE NEGATIVE (NEGATIVE)
[2018-11-19 22:24] VITALS: BP 122/74
== END 2018-11-19 22:54 | disposition home or self-care (01) ==
LOC: EMS 20:36
DX: F41.9 Anxiety disorder, unspecified (principal); J44.9 Chronic obstructive pulmonary disease, unspecified; K21.9 Gastro-esophageal reflux disease without esophagitis; F20.9 Schizophrenia, unspecified; F31.9 Bipolar disorder, unspecified; F17.210 Nicotine dependence, cigarettes, uncomplicated; Z79.899 Other long term (current) drug therapy
CPT/HCPCS: 36415; 80307; 99284; G0480

== ENCOUNTER 2018-11-27 17:26 | Inpatient (IN) | payer MEDICARE, MEDICAID ==
[~2018-11-27] VITALS: Ht 185.4 cm; Wt 90.1 kg
[2018-11-27] MEDS ORDERED: HALOPERIDOL 5 MG TABLET PO PRN (17:45)
[2018-11-27] MEDS ORDERED: LORazepam 2 MG/ML VIAL ONE (18:13)
[2018-11-27] MEDS ORDERED: HALOPERIDOL LACTATE 5 MG/ML VIAL ONE (18:13)
[2018-11-27] MEDS ORDERED: DiphenhydrAMINE HCL 50 MG/ML VIAL ONE (18:13)
[2018-11-27] MEDS ORDERED: LORazepam 2 MG/ML VIAL IM ONE (18:30)
[2018-11-27] MEDS ORDERED: DiphenhydrAMINE HCL 50 MG/ML VIAL IM ONE (18:30)
[2018-11-27] MEDS ORDERED: HALOPERIDOL LACTATE 5 MG/ML VIAL IM ONE (18:30)
[2018-11-27 19:06] VITALS: BP 126/75
[2018-11-27 19:08] VITALS: BP 126/75
[2018-11-27] MEDS ORDERED: -PHARMACY VACCINE NOTE- MISC ONE (19:30)
[2018-11-27] MEDS ORDERED: CloNIDine HCL 0.1 MG TABLET PO PRN (19:45)
[2018-11-27] MEDS ORDERED: BENZOCAINE/MENTHOL LOZENGE MM PRN (19:45)
[2018-11-27] MEDS ORDERED: PETROLATUM,WHITE 28 GM JELLY TP PRN (19:45)
[2018-11-27] MEDS ORDERED: MAGNESIUM HYDROXIDE SUSPENSION 30 ML UDCUP PO PRN (19:45)
[2018-11-27] MEDS ORDERED: ACETAMINOPHEN 325 MG TABLET PO PRN (19:45)
[2018-11-27] MEDS ORDERED: ONDANSETRON HCL 4 MG TABLET PO PRN (19:45)
[2018-11-27] MEDS ORDERED: IBUPROFEN 600 MG TABLET PO PRN (19:45)
[2018-11-27] MEDS ORDERED: BACITRACIN 28.4 GM OINTMENT TP PRN (19:45)
[2018-11-27] MEDS ORDERED: MAG HYDROX/AL HYDROX/SIMETH ES 30 ML SUSPENSION UDCUP PO PRN (19:45)
[2018-11-27] MEDS ORDERED: LOPERAMIDE HCL 2 MG CAPSULE PO PRN (19:45)
[2018-11-27] MEDS: TraZODone HCL 100 MG TABLET PO SCH (20:43)
[2018-11-27] MEDS: OLANZapine 10 MG TABLET PO SCH (20:43)
[2018-11-27] MEDS: SIMVASTATIN 10 MG TABLET PO SCH (20:43)
[2018-11-28 00:23] VITALS: BP 122/79
[2018-11-28] MEDS: LORazepam 2 MG TABLET PO PRN ×3 (05:20→16:31)
[2018-11-28 07:28] LABS: BASOPHILS % (AUTO) 0.3 % (0.0-2.0); EOSINOPHILS % (AUTO) 1.6 % (1.0-6.0); HEMATOCRIT 40.7 % (41-53); HEMOGLOBIN 13.7 g/dL (13.5-17.5); MEAN CORPUSCULAR HEMOGLOBIN 31.2 pg (26.0-34.0); MEAN CORPUSCULAR HGB CONC 33.7 G/dL (31.0-37.0); MEAN CORPUSCULAR VOLUME 93 fL (80-100); MONOCYTES # (AUTO) 0.8 K/uL (0.1-1.0); MONOCYTES % (AUTO) 7.9 % (2.0-9.0); NEUTROPHILS # (AUTO) 7.1 K/uL (1.8-7.7); NEUTROPHILS % (AUTO) 70.2 % (40.0-70.0); PLATELET COUNT (AUTO) 322 K/uL (150-450); RED CELL DISTRIBUTION WIDTH 13.7 % (11.5-14.5)
[2018-11-28 07:45] LABS: HEMOGLOBIN A1C 5.9 % (4.5-6.2)
[2018-11-28 07:52] LABS: ALANINE AMINOTRANSFERASE 21 U/L (12-78); ALBUMIN 3.6 g/dL (3.4-5.0); ALKALINE PHOSPHATASE 69 U/L (46-116); ANION GAP 6 mmol/L (8-16); ASPARTATE AMINOTRANSFERASE 18 U/L (15-37); BILIRUBIN,TOTAL 0.6 mg/dL (0.1-1.0); CALCIUM, TOTAL 8.7 mg/dL (8.8-10.5); CARBON DIOXIDE 27 mmol/L (22-29); CHLORIDE 107 mmol/L (98-107); CHOL/HDL RATIO 4.6 (4.2-7.3); CHOLESTEROL 187 mg/dL (131-200); CREATININE 0.82 mg/dL (0.60-1.30); FREE T4 (FREE THYROXINE) 1.14 ng/dL (0.76-1.46); GLOMERULAR FILTR. RATE CALC > 60 mL/min (>60); GLUCOSE,RANDOM 100 mg/dL (70-110); HDL CHOLESTEROL 41 mg/dL (40-60); LDL CHOL (CALC.) 114 mg/dL (0-130); POTASSIUM 3.9 mmol/L (3.5-5.1); SODIUM SERUM 140 mmol/L (136-145); TOTAL PROTEIN, SERUM 6.6 g/dL (6.4-8.2); TRIGLYCERIDES 159 mg/dL (15-150); UREA NITROGEN, BLOOD 7 mg/dL (7-18)
[2018-11-28 08:10] VITALS: BP 112/58
[2018-11-28] MEDS: NICOTINE 21 MG/24 HOUR PATCH TD SCH (08:46)
[2018-11-28] MEDS: OMEPRAZOLE 20 MG CAPSULE PO SCH (08:46)
[2018-11-28] MEDS: OMEGA-3/DHA/EPA/FISH OIL 1,000 MG CAPSULE PO SCH (08:46)
[2018-11-28] MEDS: DOCUSATE SODIUM 100 MG CAPSULE PO SCH (08:46)
[2018-11-28] MEDS: ALBUTEROL SULFATE HFA 90 MCG/PUFF 8 GM INHALER IH PRN (11:16)
[2018-11-28 16:23] VITALS: BP 114/68
[2018-11-28] MEDS: SIMVASTATIN 10 MG TABLET PO SCH (20:25)
[2018-11-28] MEDS: OLANZapine 10 MG TABLET PO SCH (20:25)
[2018-11-28] MEDS: ZOLPIDEM TARTRATE 10 MG TABLET PO PRN (20:26)
[2018-11-28] MEDS: TraZODone HCL 100 MG TABLET PO SCH (20:26)
[2018-11-29 05:39] VITALS: BP 118/74
[2018-11-29 08:15] VITALS: BP 101/63
[2018-11-29 08:25] LABS: APPEARANCE,URINE CLEAR (CLEAR); BILIRUBIN,URINE NEGATIVE (NEGATIVE); GLUCOSE, URINE (UA) NEGATIVE (NEGATIVE); KETONES,URINE NEGATIVE (NEGATIVE); LEUKOCYTE ESTERASE ,URINE NEGATIVE (NEGATIVE); NITRATE,URINE NEGATIVE (NEGATIVE); OCCULT BLOOD,URINE NEGATIVE (NEGATIVE); PH,URINE 7.5 (5.0-8.0); PROTEIN,URINE NEGATIVE (NEGATIVE); UROBILINOGEN,URINE 0.2 mg/dL (<=1.0)
[2018-11-29 08:33] LABS: AMPHET/METH SCREEN,URINE POSITIVE (NEGATIVE); BARBITURATE SCREEN, URINE NEGATIVE (NEGATIVE); BENZODIAZEPINES SCREEN,URINE NEGATIVE (NEGATIVE); CANNABINOID SCREEN,URINE NEGATIVE (NEGATIVE); COCAINE SCREEN,URINE NEGATIVE (NEGATIVE); METHADONE SCREEN, URINE NEGATIVE (NEGATIVE); OPIATE SCREEN,URINE NEGATIVE (NEGATIVE); PHENCYCLIDINE SCREEN,URINE NEGATIVE (NEGATIVE)
[2018-11-29] MEDS: OMEGA-3/DHA/EPA/FISH OIL 1,000 MG CAPSULE PO SCH (08:35)
[2018-11-29] MEDS: OMEPRAZOLE 20 MG CAPSULE PO SCH (08:35)
[2018-11-29] MEDS: DOCUSATE SODIUM 100 MG CAPSULE PO SCH (08:35)
[2018-11-29] MEDS: NICOTINE 21 MG/24 HOUR PATCH TD SCH (08:35)
[2018-11-29] MEDS: CHOLECALCIFEROL (VIT D3) 1,000 UNITS TABLET PO SCH (08:35)
[2018-11-29 16:07] VITALS: BP 118/74
[2018-11-29] MEDS: LORazepam 2 MG TABLET PO PRN (16:40)
[2018-11-29] MEDS: OLANZapine 10 MG TABLET PO SCH (20:17)
[2018-11-29] MEDS: TraZODone HCL 100 MG TABLET PO SCH (20:17)
[2018-11-29] MEDS: SIMVASTATIN 10 MG TABLET PO SCH (20:17)
[2018-11-29] MEDS: ZOLPIDEM TARTRATE 10 MG TABLET PO PRN (20:17)
[2018-11-30 05:04] VITALS: BP 117/71
[2018-11-30 08:17] VITALS: BP 100/56
[2018-11-30] MEDS: CHOLECALCIFEROL (VIT D3) 1,000 UNITS TABLET PO SCH (08:56)
[2018-11-30] MEDS: OMEGA-3/DHA/EPA/FISH OIL 1,000 MG CAPSULE PO SCH (08:56)
[2018-11-30] MEDS: DOCUSATE SODIUM 100 MG CAPSULE PO SCH (08:56)
[2018-11-30] MEDS: OMEPRAZOLE 20 MG CAPSULE PO SCH (08:56)
[2018-11-30] MEDS: NICOTINE 21 MG/24 HOUR PATCH TD SCH (08:57)
[2018-11-30] MEDS: LORazepam 2 MG TABLET PO PRN ×2 (15:59→21:03)
[2018-11-30] MEDS: ALBUTEROL SULFATE HFA 90 MCG/PUFF 8 GM INHALER IH PRN (15:59)
[2018-11-30 16:00] VITALS: BP 108/63
[2018-11-30] MEDS: OLANZapine 10 MG TABLET PO SCH (21:03)
[2018-11-30] MEDS: TraZODone HCL 100 MG TABLET PO SCH (21:03)
[2018-11-30] MEDS: SIMVASTATIN 10 MG TABLET PO SCH (21:03)
[2018-11-30] MEDS: ZOLPIDEM TARTRATE 10 MG TABLET PO PRN (21:04)
[2018-12-01 06:10] VITALS: BP 102/62
[2018-12-01 08:00] VITALS: BP 91/52
[2018-12-01] MEDS: CHOLECALCIFEROL (VIT D3) 1,000 UNITS TABLET PO SCH (09:45)
[2018-12-01] MEDS: OMEPRAZOLE 20 MG CAPSULE PO SCH (09:45)
[2018-12-01] MEDS: DOCUSATE SODIUM 100 MG CAPSULE PO SCH (09:45)
[2018-12-01] MEDS: OMEGA-3/DHA/EPA/FISH OIL 1,000 MG CAPSULE PO SCH (09:48)
== END 2018-12-01 10:25 | disposition home or self-care (01) | DRG 885 ==
LOC: B3A 18:00
PROVIDERS: ADMIT Psychiatry & Neurology Child & Adolescent Psychiatry; ATTEND Psychiatry & Neurology Psychiatry
DX: F25.1 Schizoaffective disorder, depressive type (principal); R45.851 Suicidal ideations; F15.20 Other stimulant dependence, uncomplicated; E55.9 Vitamin D deficiency, unspecified; F17.200 Nicotine dependence, unspecified, uncomplicated; J44.9 Chronic obstructive pulmonary disease, unspecified; K21.9 Gastro-esophageal reflux disease without esophagitis; K59.00 Constipation, unspecified; G47.00 Insomnia, unspecified; E78.00 Pure hypercholesterolemia, unspecified; M79.671 Pain in right foot; Z56.0 Unemployment, unspecified; Z71.6 Tobacco abuse counseling; Z71.51 Drug abuse counseling and surveillance of drug abuser
CPT/HCPCS: 80307; 83036; 84439; 84443; 87081; J1200; J1630; J2060; J3535

== ENCOUNTER 2018-12-02 05:36 | Emergency (ER) | payer MEDICARE, OTHER ==
[~2018-12-02] VITALS: Ht 177.8 cm; Wt 90.1 kg
[2018-12-02] MEDS ORDERED: HALOPERIDOL LACTATE 5 MG/ML VIAL IM ONE (06:45)
[2018-12-02] MEDS ORDERED: LORazepam 2 MG/ML VIAL IM ONE (06:45)
[2018-12-02 07:30] VITALS: BP 133/85
== END 2018-12-02 08:04 | disposition home or self-care (01) ==
LOC: EMS 05:40
DX: F15.10 Other stimulant abuse, uncomplicated (principal); F25.9 Schizoaffective disorder, unspecified; F31.9 Bipolar disorder, unspecified; F41.9 Anxiety disorder, unspecified; K21.9 Gastro-esophageal reflux disease without esophagitis; F17.210 Nicotine dependence, cigarettes, uncomplicated; Z79.899 Other long term (current) drug therapy
CPT/HCPCS: 96372; 99283; 99406; J1630; J2060

== ENCOUNTER 2018-12-02 22:25 | Emergency (ER) | payer MEDICARE, OTHER ==
[~2018-12-02] VITALS: Ht 177.8 cm; Wt 90.9 kg
[2018-12-02 22:36] VITALS: BP 111/72
== END 2018-12-02 23:55 | disposition left against medical advice (07) ==
LOC: EMS 22:25
DX: F41.9 Anxiety disorder, unspecified (principal); J45.909 Unspecified asthma, uncomplicated; F31.9 Bipolar disorder, unspecified; J44.9 Chronic obstructive pulmonary disease, unspecified; F20.9 Schizophrenia, unspecified; F17.210 Nicotine dependence, cigarettes, uncomplicated; F19.90 Other psychoactive substance use, unspecified, uncomplicated; Z76.0 Encounter for issue of repeat prescription; Z53.21 Procedure and treatment not carried out due to patient leaving prior to being seen by health care provider

== ENCOUNTER 2018-12-03 12:01 | Emergency (ER) | payer MEDICARE, OTHER ==
[~2018-12-03] VITALS: Ht 177.8 cm; Wt 90.9 kg
[~2018-12-03 12:01] MED LIST changes: -ALBU8HFA IH; -DOCU100C33 PO; -NICO-704 TD; -OMEG-135 PO; -SIMV-259 PO
[2018-12-03 12:54] LABS: BASOPHILS % (AUTO) 0.4 % (0.0-2.0); EOSINOPHILS % (AUTO) 1.3 % (1.0-6.0); HEMATOCRIT 41.8 % (41-53); HEMOGLOBIN 14.2 g/dL (13.5-17.5); LYMPHOCYTES # (AUTO) 2.2 K/uL (1.0-4.8); LYMPHOCYTES % (AUTO) 20.6 % (22.0-44.0); MEAN CORPUSCULAR HGB CONC 33.9 G/dL (31.0-37.0); MEAN CORPUSCULAR VOLUME 91 fL (80-100); MONOCYTES # (AUTO) 0.9 K/uL (0.1-1.0); MONOCYTES % (AUTO) 8.5 % (2.0-9.0); NEUTROPHILS # (AUTO) 7.5 K/uL (1.8-7.7); NEUTROPHILS % (AUTO) 69.2 % (40.0-70.0); PLATELET COUNT (AUTO) 309 K/uL (150-450); RED BLOOD CELL COUNT(AUTO) 4.58 MIL/uL (4.50-5.90); RED CELL DISTRIBUTION WIDTH 13.5 % (11.5-14.5)
[2018-12-03 13:03] LABS: ANION GAP 14 mmol/L (8-16); CALCIUM, TOTAL 9.7 mg/dL (8.8-10.5); CARBON DIOXIDE 19 mmol/L (22-29); CHLORIDE 106 mmol/L (98-107); CREATININE 0.99 mg/dL (0.60-1.30); GLOMERULAR FILTR. RATE CALC > 60 mL/min (>60); GLUCOSE,RANDOM 84 mg/dL (70-110); POTASSIUM 3.7 mmol/L (3.5-5.1); SODIUM SERUM 139 mmol/L (136-145); UREA NITROGEN, BLOOD 10 mg/dL (7-18)
[2018-12-03 13:09] LABS: ALANINE AMINOTRANSFERASE 27 U/L (12-78); ALBUMIN 3.9 g/dL (3.4-5.0); ALKALINE PHOSPHATASE 80 U/L (46-116); ASPARTATE AMINOTRANSFERASE 22 U/L (15-37); TOTAL PROTEIN, SERUM 6.9 g/dL (6.4-8.2)
[2018-12-03 14:14] LABS: AMPHET/METH SCREEN,URINE POSITIVE (NEGATIVE); BARBITURATE SCREEN, URINE NEGATIVE (NEGATIVE); BENZODIAZEPINES SCREEN,URINE NEGATIVE (NEGATIVE); CANNABINOID SCREEN,URINE NEGATIVE (NEGATIVE); COCAINE SCREEN,URINE NEGATIVE (NEGATIVE); METHADONE SCREEN, URINE NEGATIVE (NEGATIVE); OPIATE SCREEN,URINE NEGATIVE (NEGATIVE)
[2018-12-03 14:15] LABS: PHENCYCLIDINE SCREEN,URINE NEGATIVE (NEGATIVE)
[2018-12-03] MEDS ORDERED: LORazepam 2 MG TABLET PO ONE (14:15)
[2018-12-03 15:34] VITALS: BP 105/69
== END 2018-12-03 15:35 | disposition home or self-care (01) ==
LOC: EMS 12:04
DX: F41.9 Anxiety disorder, unspecified (principal); F15.10 Other stimulant abuse, uncomplicated; F31.9 Bipolar disorder, unspecified; F20.9 Schizophrenia, unspecified; J44.9 Chronic obstructive pulmonary disease, unspecified; K21.9 Gastro-esophageal reflux disease without esophagitis; F17.210 Nicotine dependence, cigarettes, uncomplicated; Z79.899 Other long term (current) drug therapy
CPT/HCPCS: 36415; 80053; 80307; 85025; 99284; G0480

== ENCOUNTER 2019-01-09 02:08 | Inpatient (IN) | payer MEDICARE, MEDICAID ==
[~2019-01-09] VITALS: Ht 177.8 cm; Wt 91.4 kg
[2019-01-09] MEDS ORDERED: ZOLPIDEM TARTRATE 10 MG TABLET PO PRN (04:15)
[2019-01-09] MEDS ORDERED: HALOPERIDOL 5 MG TABLET PO PRN (04:15)
[2019-01-09 04:44] VITALS: BP 115/82
[2019-01-09 08:49] VITALS: BP 120/73
[2019-01-09] MEDS ORDERED: TRAZ-252 PO (10:01)
[2019-01-09] MEDS ORDERED: OLAN10TA3 PO (10:01)
[2019-01-09] MEDS ORDERED: PALI156D IM (10:01)
[2019-01-09] MEDS: ALBUTEROL SULFATE HFA 90 MCG/PUFF 8 GM INHALER IH PRN ×2 (11:41→20:47)
[2019-01-09] MEDS: NICOTINE 14 MG/24 HOUR PATCH TD SCH (12:32)
[2019-01-09] MEDS: LORazepam 2 MG TABLET PO PRN (12:55)
[2019-01-09 16:07] VITALS: BP 100/60
[2019-01-09] MEDS: TraZODone HCL 100 MG TABLET PO SCH (20:35)
[2019-01-09] MEDS: OLANZapine 10 MG TABLET PO SCH (20:35)
[2019-01-10 05:31] VITALS: BP 105/60
[2019-01-10 07:54] LABS: BASOPHILS % (AUTO) 0.6 % (0.0-2.0); EOSINOPHILS % (AUTO) 4.5 % (1.0-6.0); HEMATOCRIT 43.4 % (41-53); HEMOGLOBIN 14.6 g/dL (13.5-17.5); LYMPHOCYTES # (AUTO) 2.3 K/uL (1.0-4.8); LYMPHOCYTES % (AUTO) 25.9 % (22.0-44.0); MEAN CORPUSCULAR HEMOGLOBIN 31.2 pg (26.0-34.0); MEAN CORPUSCULAR HGB CONC 33.7 G/dL (31.0-37.0); MEAN CORPUSCULAR VOLUME 92 fL (80-100); MONOCYTES # (AUTO) 0.7 K/uL (0.1-1.0); MONOCYTES % (AUTO) 8.3 % (2.0-9.0); NEUTROPHILS # (AUTO) 5.4 K/uL (1.8-7.7); NEUTROPHILS % (AUTO) 60.7 % (40.0-70.0); PLATELET COUNT (AUTO) 279 K/uL (150-450); RED CELL DISTRIBUTION WIDTH 13.5 % (11.5-14.5)
[2019-01-10 08:10] LABS: HEMOGLOBIN A1C 5.3 % (4.5-6.2)
[2019-01-10 08:28] VITALS: BP 108/62
[2019-01-10 08:50] LABS: ALANINE AMINOTRANSFERASE 27 U/L (12-78); ALBUMIN 3.7 g/dL (3.4-5.0); ALKALINE PHOSPHATASE 85 U/L (46-116); ANION GAP 9 mmol/L (8-16); ASPARTATE AMINOTRANSFERASE 17 U/L (15-37); BILIRUBIN,TOTAL 0.4 mg/dL (0.1-1.0); CALCIUM, TOTAL 9.1 mg/dL (8.8-10.5); CARBON DIOXIDE 25 mmol/L (22-29); CHLORIDE 105 mmol/L (98-107); CHOL/HDL RATIO 4.8 (4.2-7.3); CHOLESTEROL 176 mg/dL (131-200); CREATININE 0.95 mg/dL (0.60-1.30); GLOMERULAR FILTR. RATE CALC > 60 mL/min (>60); GLUCOSE,RANDOM 86 mg/dL (70-110); HDL CHOLESTEROL 37 mg/dL (40-60); POTASSIUM 3.9 mmol/L (3.5-5.1); SODIUM SERUM 139 mmol/L (136-145); TOTAL PROTEIN, SERUM 6.7 g/dL (6.4-8.2); TRIGLYCERIDES 134 mg/dL (15-150); UREA NITROGEN, BLOOD 9 mg/dL (7-18)
[2019-01-10 08:51] LABS: FREE T4 (FREE THYROXINE) 0.98 ng/dL (0.76-1.46); LDL CHOL (CALC.) 112 mg/dL (0-130); THYROID STIMULATING HORMONE 0.95 uIU/mL (0.36-3.74)
[2019-01-10] MEDS: NICOTINE 14 MG/24 HOUR PATCH TD SCH (08:59)
[2019-01-10 09:26] LABS: APPEARANCE,URINE CLEAR (CLEAR); BILIRUBIN,URINE NEGATIVE (NEGATIVE); GLUCOSE, URINE (UA) NEGATIVE (NEGATIVE); KETONES,URINE NEGATIVE (NEGATIVE); LEUKOCYTE ESTERASE ,URINE NEGATIVE (NEGATIVE); NITRATE,URINE NEGATIVE (NEGATIVE); OCCULT BLOOD,URINE NEGATIVE (NEGATIVE); PROTEIN,URINE NEGATIVE (NEGATIVE); UROBILINOGEN,URINE 0.2 mg/dL (<=1.0)
[2019-01-10 09:30] LABS: AMPHET/METH SCREEN,URINE NEGATIVE (NEGATIVE); BARBITURATE SCREEN, URINE NEGATIVE (NEGATIVE); BENZODIAZEPINES SCREEN,URINE NEGATIVE (NEGATIVE); CANNABINOID SCREEN,URINE NEGATIVE (NEGATIVE); COCAINE SCREEN,URINE NEGATIVE (NEGATIVE); METHADONE SCREEN, URINE NEGATIVE (NEGATIVE); OPIATE SCREEN,URINE NEGATIVE (NEGATIVE)
[2019-01-10 09:31] LABS: PHENCYCLIDINE SCREEN,URINE NEGATIVE (NEGATIVE)
[2019-01-10] MEDS: LORazepam 2 MG TABLET PO PRN (10:56)
[2019-01-10] MEDS: ALBUTEROL SULFATE HFA 90 MCG/PUFF 8 GM INHALER IH PRN ×2 (10:56→16:49)
[2019-01-10] MEDS ORDERED: PALI156D IM (12:57)
[2019-01-10] MEDS: CHOLECALCIFEROL (VIT D3) 5,000 UNITS CAPSULE PO SCH (15:56)
[2019-01-10 16:01] VITALS: BP 110/68
[2019-01-10] MEDS: MUPIROCIN CALCIUM 2% 22 GM OINTMENT NASAL SCH (16:34)
[2019-01-10] MEDS: TraZODone HCL 100 MG TABLET PO SCH (20:31)
[2019-01-10] MEDS: OLANZapine 10 MG TABLET PO SCH (20:32)
[2019-01-11 08:01] VITALS: BP 106/65
[2019-01-11] MEDS: MUPIROCIN CALCIUM 2% 22 GM OINTMENT NASAL SCH ×2 (08:22→16:29)
[2019-01-11] MEDS: NICOTINE 14 MG/24 HOUR PATCH TD SCH (08:23)
[2019-01-11] MEDS: CHOLECALCIFEROL (VIT D3) 5,000 UNITS CAPSULE PO SCH (08:23)
[2019-01-11] MEDS: LORazepam 2 MG TABLET PO PRN ×2 (09:38→17:16)
[2019-01-11] MEDS: ALBUTEROL SULFATE HFA 90 MCG/PUFF 8 GM INHALER IH PRN ×3 (09:38→19:58)
[2019-01-11 16:20] VITALS: BP 94/67
[2019-01-11] MEDS: OLANZapine 10 MG TABLET PO SCH (20:33)
[2019-01-11] MEDS: TraZODone HCL 100 MG TABLET PO SCH (20:34)
[2019-01-12 00:46] VITALS: BP 101/65
[2019-01-12 08:15] VITALS: BP 104/67
[2019-01-12] MEDS: CHOLECALCIFEROL (VIT D3) 5,000 UNITS CAPSULE PO SCH (09:18)
[2019-01-12] MEDS: NICOTINE 14 MG/24 HOUR PATCH TD SCH (09:18)
[2019-01-12] MEDS: MUPIROCIN CALCIUM 2% 22 GM OINTMENT NASAL SCH ×2 (09:19→16:10)
[2019-01-12] MEDS: ALBUTEROL SULFATE HFA 90 MCG/PUFF 8 GM INHALER IH PRN ×2 (12:57→19:15)
[2019-01-12] MEDS: LORazepam 2 MG TABLET PO PRN (15:09)
[2019-01-12 16:01] VITALS: BP 111/66
[2019-01-12] MEDS: TraZODone HCL 100 MG TABLET PO SCH (20:04)
[2019-01-12] MEDS: FLUTICASONE/SALMETEROL 250 MCG-50 MCG/INH DISKUS INHALER [28] IH SCH (20:04)
[2019-01-13 00:40] VITALS: BP 103/62
[2019-01-13 08:23] VITALS: BP 115/60
[2019-01-13] MEDS: CHOLECALCIFEROL (VIT D3) 5,000 UNITS CAPSULE PO SCH (08:54)
[2019-01-13] MEDS: FLUTICASONE/SALMETEROL 250 MCG-50 MCG/INH DISKUS INHALER [28] IH SCH (08:55)
[2019-01-13] MEDS: NICOTINE 14 MG/24 HOUR PATCH TD SCH (08:55)
[2019-01-13] MEDS: MUPIROCIN CALCIUM 2% 22 GM OINTMENT NASAL SCH (08:56)
[2019-01-13] MEDS: ALBUTEROL SULFATE HFA 90 MCG/PUFF 8 GM INHALER IH PRN (11:43)
== END 2019-01-13 15:00 | disposition home or self-care (01) | DRG 885 ==
LOC: B2X 04:07
PROVIDERS: ADMIT Psychiatry & Neurology Psychiatry; ATTEND Psychiatry & Neurology Psychiatry
DX: F20.0 Paranoid schizophrenia (principal); E78.5 Hyperlipidemia, unspecified; F17.200 Nicotine dependence, unspecified, uncomplicated; J44.9 Chronic obstructive pulmonary disease, unspecified; K21.9 Gastro-esophageal reflux disease without esophagitis; K59.00 Constipation, unspecified
CPT/HCPCS: 80307; 83036; 84439; 84443; 87081; J3535

== ENCOUNTER 2019-02-17 20:19 | Emergency (ER) | payer MEDICARE, OTHER ==
[~2019-02-17] VITALS: Ht 177.8 cm; Wt 90.9 kg
[~2019-02-17 20:19] MED LIST changes: -OLAN10TA3 PO
[2019-02-17] MEDS ORDERED: PALI39DI IM (20:35)
[2019-02-17] MEDS ORDERED: QUET25TA PO (20:35)
[2019-02-17] MEDS ORDERED: ALBU8HFA IH (20:35)
[2019-02-17 21:04] LABS: HEMATOCRIT 45.7 % (41-53); HEMOGLOBIN 15.4 g/dL (13.5-17.5); MEAN CORPUSCULAR HEMOGLOBIN 31.3 pg (26.0-34.0); MEAN CORPUSCULAR HGB CONC 33.8 G/dL (31.0-37.0); MEAN CORPUSCULAR VOLUME 93 fL (80-100); RED BLOOD CELL COUNT(AUTO) 4.93 MIL/uL (4.50-5.90)
[2019-02-17 21:05] LABS: ANION GAP 11 mmol/L (8-16); BASOPHILS % (AUTO) 0.5 % (0.0-2.0); CALCIUM, TOTAL 9.4 mg/dL (8.8-10.5); CARBON DIOXIDE 23 mmol/L (22-29); CHLORIDE 103 mmol/L (98-107); CREATININE 0.98 mg/dL (0.60-1.30); EOSINOPHILS % (AUTO) 3.6 % (1.0-6.0); GLOMERULAR FILTR. RATE CALC > 60 mL/min (>60); GLUCOSE,RANDOM 97 mg/dL (70-110); LYMPHOCYTES # (AUTO) 2.7 K/uL (1.0-4.8); LYMPHOCYTES % (AUTO) 25.1 % (22.0-44.0); MONOCYTES # (AUTO) 0.7 K/uL (0.1-1.0); MONOCYTES % (AUTO) 6.5 % (2.0-9.0); NEUTROPHILS % (AUTO) 64.3 % (40.0-70.0); PLATELET COUNT (AUTO) 312 K/uL (150-450); POTASSIUM 3.9 mmol/L (3.5-5.1); SODIUM SERUM 137 mmol/L (136-145); UREA NITROGEN, BLOOD 9 mg/dL (7-18)
[2019-02-17 21:11] LABS: ALANINE AMINOTRANSFERASE 21 U/L (12-78); ALBUMIN 4.5 g/dL (3.4-5.0); ALKALINE PHOSPHATASE 88 U/L (46-116); ASPARTATE AMINOTRANSFERASE 13 U/L (15-37); BILIRUBIN,TOTAL 0.4 mg/dL (0.1-1.0); TOTAL PROTEIN, SERUM 7.6 g/dL (6.4-8.2)
[2019-02-17 21:18] LABS: AMPHET/METH SCREEN,URINE POSITIVE (NEGATIVE); BARBITURATE SCREEN, URINE NEGATIVE (NEGATIVE); BENZODIAZEPINES SCREEN,URINE NEGATIVE (NEGATIVE); CANNABINOID SCREEN,URINE NEGATIVE (NEGATIVE); COCAINE SCREEN,URINE NEGATIVE (NEGATIVE); METHADONE SCREEN, URINE NEGATIVE (NEGATIVE); OPIATE SCREEN,URINE NEGATIVE (NEGATIVE)
[2019-02-17 21:20] LABS: PHENCYCLIDINE SCREEN,URINE NEGATIVE (NEGATIVE)
[2019-02-17] MEDS ORDERED: DiphenhydrAMINE HCL 25 MG CAPSULE PO ONE (21:30)
[2019-02-17] MEDS ORDERED: HALOPERIDOL 5 MG TABLET PO ONE (21:30)
[2019-02-17] MEDS ORDERED: LORazepam 2 MG TABLET PO ONE (21:30)
[2019-02-17] MEDS ORDERED: DiphenhydrAMINE HCL 50 MG/ML VIAL IM ONE (22:00)
[2019-02-17] MEDS ORDERED: LORazepam 2 MG/ML VIAL IM ONE (22:00)
[2019-02-17] MEDS ORDERED: HALOPERIDOL LACTATE 5 MG/ML VIAL IM ONE (22:00)
[2019-02-18 01:00] VITALS: BP 123/62
[2019-02-19] MEDS ORDERED: PALI234D IM (19:18)
== END 2019-02-18 01:05 | disposition home or self-care (01) ==
LOC: EMS 20:20
DX: F19.280 Other psychoactive substance dependence with psychoactive substance-induced anxiety disorder (principal); F20.9 Schizophrenia, unspecified; F15.10 Other stimulant abuse, uncomplicated; F17.210 Nicotine dependence, cigarettes, uncomplicated; F31.9 Bipolar disorder, unspecified; J44.9 Chronic obstructive pulmonary disease, unspecified; K21.9 Gastro-esophageal reflux disease without esophagitis
CPT/HCPCS: 36415; 80053; 80307; 85025; 96372; 99284; 99406; G0480; J1200; J1630; J2060

== ENCOUNTER 2019-02-19 18:48 | Emergency (ER) | payer MEDICARE, OTHER ==
[~2019-02-19] VITALS: Ht 177.8 cm; Wt 90.9 kg
[~2019-02-19 18:48] MED LIST changes: +ALBU8HFA IH; +PALI39DI IM; +QUET25TA PO
[2019-02-19] MEDS ORDERED: PALI234D IM (19:18)
[2019-02-19 20:24] LABS: BASOPHILS % (AUTO) 0.5 % (0.0-2.0); EOSINOPHILS % (AUTO) 1.3 % (1.0-6.0); HEMATOCRIT 43.6 % (41-53); LYMPHOCYTES % (AUTO) 19.2 % (22.0-44.0); MEAN CORPUSCULAR HEMOGLOBIN 31.4 pg (26.0-34.0); MEAN CORPUSCULAR HGB CONC 34.5 G/dL (31.0-37.0); MEAN CORPUSCULAR VOLUME 91 fL (80-100); MONOCYTES # (AUTO) 0.6 K/uL (0.1-1.0); MONOCYTES % (AUTO) 6.3 % (2.0-9.0); NEUTROPHILS # (AUTO) 7.4 K/uL (1.8-7.7); NEUTROPHILS % (AUTO) 72.7 % (40.0-70.0); PLATELET COUNT (AUTO) 316 K/uL (150-450); RED BLOOD CELL COUNT(AUTO) 4.79 MIL/uL (4.50-5.90); RED CELL DISTRIBUTION WIDTH 12.8 % (11.5-14.5)
[2019-02-19 20:32] LABS: AMPHET/METH SCREEN,URINE POSITIVE (NEGATIVE); BARBITURATE SCREEN, URINE NEGATIVE (NEGATIVE); BENZODIAZEPINES SCREEN,URINE NEGATIVE (NEGATIVE); CANNABINOID SCREEN,URINE NEGATIVE (NEGATIVE); COCAINE SCREEN,URINE NEGATIVE (NEGATIVE); METHADONE SCREEN, URINE NEGATIVE (NEGATIVE); OPIATE SCREEN,URINE NEGATIVE (NEGATIVE); PHENCYCLIDINE SCREEN,URINE NEGATIVE (NEGATIVE)
[2019-02-19 20:33] LABS: ANION GAP 14 mmol/L (8-16); CALCIUM, TOTAL 9.6 mg/dL (8.8-10.5); CARBON DIOXIDE 20 mmol/L (22-29); CHLORIDE 106 mmol/L (98-107); CREATININE 1.09 mg/dL (0.60-1.30); GLOMERULAR FILTR. RATE CALC > 60 mL/min (>60); GLUCOSE,RANDOM 124 mg/dL (70-110); POTASSIUM 3.2 mmol/L (3.5-5.1); SODIUM SERUM 140 mmol/L (136-145); UREA NITROGEN, BLOOD 9 mg/dL (7-18)
[2019-02-19 20:39] LABS: ALANINE AMINOTRANSFERASE 19 U/L (12-78); ALKALINE PHOSPHATASE 79 U/L (46-116); ASPARTATE AMINOTRANSFERASE 18 U/L (15-37); BILIRUBIN,TOTAL 0.3 mg/dL (0.1-1.0); TOTAL PROTEIN, SERUM 6.8 g/dL (6.4-8.2)
[2019-02-19] MEDS ORDERED: LORazepam 1 MG TABLET PO ONE (21:45)
[2019-02-19 22:19] VITALS: BP 143/71
== END 2019-02-19 22:19 | disposition home or self-care (01) ==
LOC: EMS 18:50
DX: R44.0 Auditory hallucinations (principal); R44.1 Visual hallucinations; F41.9 Anxiety disorder, unspecified; F31.9 Bipolar disorder, unspecified; J44.9 Chronic obstructive pulmonary disease, unspecified; K21.9 Gastro-esophageal reflux disease without esophagitis; F17.210 Nicotine dependence, cigarettes, uncomplicated; F15.90 Other stimulant use, unspecified, uncomplicated; Z79.899 Other long term (current) drug therapy
CPT/HCPCS: 36415; 80053; 80307; 85025; 99284; G0480

== ENCOUNTER 2019-06-26 00:06 | Emergency (ER) | payer MEDICARE, OTHER ==
[~2019-06-26] VITALS: Ht 180.3 cm; Wt 93.2 kg
[~2019-06-26 00:06] MED LIST changes: +PALI234D IM; -PALI39DI IM; -TRAZ-220 PO; +TRAZ-257 PO
[2019-06-26 03:54] VITALS: BP 122/70
== END 2019-06-26 03:55 | disposition home or self-care (01) ==
LOC: EMS 00:09
DX: S82.434A Nondisplaced oblique fracture of shaft of right fibula, initial encounter for closed fracture (principal); J45.909 Unspecified asthma, uncomplicated; F41.9 Anxiety disorder, unspecified; F31.9 Bipolar disorder, unspecified; K21.9 Gastro-esophageal reflux disease without esophagitis; F20.9 Schizophrenia, unspecified; F17.210 Nicotine dependence, cigarettes, uncomplicated; F19.90 Other psychoactive substance use, unspecified, uncomplicated; W01.0XXA Fall on same level from slipping, tripping and stumbling without subsequent striking against object, initial encounter; Y93.89 Activity, other specified; Y92.89 Other specified places as the place of occurrence of the external cause; Y99.8 Other external cause status
CPT/HCPCS: 29515; 93971

== ENCOUNTER 2019-08-14 21:55 | Emergency (ER) | payer MEDICARE, OTHER ==
[~2019-08-14] VITALS: Ht 180.3 cm; Wt 91.4 kg
[2019-08-14 22:06] VITALS: BP 149/84
== END 2019-08-14 23:28 | disposition left against medical advice (07) ==
LOC: EMS 21:59
DX: R44.3 Hallucinations, unspecified (principal); Z53.21 Procedure and treatment not carried out due to patient leaving prior to being seen by health care provider

== ENCOUNTER 2019-08-14 23:45 | Emergency (ER) | payer MEDICARE, OTHER ==
[~2019-08-14] VITALS: Ht 180.3 cm; Wt 91.4 kg
[2019-08-15] MEDS ORDERED: LORazepam 2 MG TABLET PO ONE (00:45)
[2019-08-15] MEDS ORDERED: OLANZapine 5 MG TABLET PO ONE (01:00)
[2019-08-15 01:09] LABS: BASOPHILS % (AUTO) 0.6 % (0.0-2.0); EOSINOPHILS % (AUTO) 1.7 % (1.0-6.0); HEMATOCRIT 45.3 % (41-53); HEMOGLOBIN 15.4 g/dL (13.5-17.5); LYMPHOCYTES # (AUTO) 1.9 K/uL (1.0-4.8); LYMPHOCYTES % (AUTO) 18.3 % (22.0-44.0); MEAN CORPUSCULAR HEMOGLOBIN 30.5 pg (26.0-34.0); MEAN CORPUSCULAR VOLUME 90 fL (80-100); MONOCYTES % (AUTO) 9.9 % (2.0-9.0); NEUTROPHILS # (AUTO) 7.3 K/uL (1.8-7.7); NEUTROPHILS % (AUTO) 69.5 % (40.0-70.0); PLATELET COUNT (AUTO) 272 K/uL (150-450); RED BLOOD CELL COUNT(AUTO) 5.05 MIL/uL (4.50-5.90); RED CELL DISTRIBUTION WIDTH 12.9 % (11.5-14.5)
[2019-08-15 01:54] LABS: ANION GAP 12 mmol/L (8-16); CALCIUM, TOTAL 9.8 mg/dL (8.8-10.5); CARBON DIOXIDE 23 mmol/L (22-29); CHLORIDE 101 mmol/L (98-107); CREATININE 1.06 mg/dL (0.60-1.30); GLOMERULAR FILTR. RATE CALC > 60 mL/min (>60); GLUCOSE,RANDOM 122 mg/dL (70-110); POTASSIUM 3.8 mmol/L (3.5-5.1); SODIUM SERUM 136 mmol/L (136-145); UREA NITROGEN, BLOOD 14 mg/dL (7-18)
[2019-08-15 02:00] LABS: ALANINE AMINOTRANSFERASE 30 U/L (12-78); ALBUMIN 4.1 g/dL (3.4-5.0); ALKALINE PHOSPHATASE 88 U/L (46-116); ASPARTATE AMINOTRANSFERASE 17 U/L (15-37); BILIRUBIN,TOTAL 0.4 mg/dL (0.1-1.0); TOTAL PROTEIN, SERUM 7.4 g/dL (6.4-8.2)
[2019-08-15 02:45] VITALS: BP 126/81
== END 2019-08-15 03:00 | disposition home or self-care (01) ==
LOC: EMS 23:45
DX: F20.0 Paranoid schizophrenia (principal); F15.10 Other stimulant abuse, uncomplicated; J44.9 Chronic obstructive pulmonary disease, unspecified; F32.9 Major depressive disorder, single episode, unspecified; F41.9 Anxiety disorder, unspecified; F17.210 Nicotine dependence, cigarettes, uncomplicated; Z98.890 Other specified postprocedural states; Z79.899 Other long term (current) drug therapy
CPT/HCPCS: 36415; 80053; 85025; 99284; 99406; G0480

== ENCOUNTER 2019-08-28 20:57 | Emergency (ER) | payer MEDICARE, OTHER | END 2019-08-29 00:01 | disposition left against medical advice (07) | LOC: EMS 20:57 | DX: F29 Unspecified psychosis not due to a substance or known physiological condition (principal); Z53.21 Procedure and treatment not carried out due to patient leaving prior to being seen by health care provider ==

== ENCOUNTER 2019-08-29 10:01 | Emergency (ER) | payer MEDICARE, OTHER ==
[~2019-08-29] VITALS: Ht 180.3 cm; Wt 93.2 kg
[2019-08-29] MEDS ORDERED: LORazepam 1 MG TABLET PO ONE (10:45)
[2019-08-29 11:26] VITALS: BP 103/60
== END 2019-08-29 13:02 | disposition home or self-care (01) ==
LOC: EMS 10:03
DX: F41.9 Anxiety disorder, unspecified (principal); F15.10 Other stimulant abuse, uncomplicated; F22 Delusional disorders; J45.909 Unspecified asthma, uncomplicated; F31.9 Bipolar disorder, unspecified; K21.9 Gastro-esophageal reflux disease without esophagitis; F20.9 Schizophrenia, unspecified; F17.210 Nicotine dependence, cigarettes, uncomplicated; F19.90 Other psychoactive substance use, unspecified, uncomplicated

== ENCOUNTER 2019-08-31 15:53 | Inpatient (IN) | payer MEDICARE, OTHER ==
[~2019-08-31] VITALS: Ht 177.8 cm; Wt 85.7 kg
[2019-08-31] MEDS ORDERED: OLAN10TA3 PO (16:20)
[2019-08-31 17:27] LABS: BASOPHILS % (AUTO) 0.7 % (0.0-2.0); EOSINOPHILS % (AUTO) 3.4 % (1.0-6.0); HEMATOCRIT 43.1 % (41-53); HEMOGLOBIN 14.4 g/dL (13.5-17.5); LYMPHOCYTES # (AUTO) 2.6 K/uL (1.0-4.8); LYMPHOCYTES % (AUTO) 21.6 % (22.0-44.0); MEAN CORPUSCULAR HEMOGLOBIN 30.1 pg (26.0-34.0); MEAN CORPUSCULAR HGB CONC 33.5 G/dL (31.0-37.0); MEAN CORPUSCULAR VOLUME 90 fL (80-100); MONOCYTES # (AUTO) 0.7 K/uL (0.1-1.0); MONOCYTES % (AUTO) 5.9 % (2.0-9.0); NEUTROPHILS # (AUTO) 8.1 K/uL (1.8-7.7); NEUTROPHILS % (AUTO) 68.4 % (40.0-70.0); PLATELET COUNT (AUTO) 300 K/uL (150-450); RED CELL DISTRIBUTION WIDTH 13.2 % (11.5-14.5)
[2019-08-31 17:36] LABS: ANION GAP 7 mmol/L (8-16); CALCIUM, TOTAL 8.8 mg/dL (8.8-10.5); CARBON DIOXIDE 28 mmol/L (22-29); CHLORIDE 105 mmol/L (98-107); CREATININE 1.11 mg/dL (0.60-1.30); GLOMERULAR FILTR. RATE CALC > 60 mL/min (>60); GLUCOSE,RANDOM 73 mg/dL (70-110); POTASSIUM 3.6 mmol/L (3.5-5.1); SODIUM SERUM 140 mmol/L (136-145); UREA NITROGEN, BLOOD 9 mg/dL (7-18)
[2019-08-31 17:42] LABS: ALANINE AMINOTRANSFERASE 19 U/L (12-78); ALBUMIN 3.5 g/dL (3.4-5.0); ALKALINE PHOSPHATASE 82 U/L (46-116); ASPARTATE AMINOTRANSFERASE 6 U/L (15-37); BILIRUBIN,TOTAL 0.2 mg/dL (0.1-1.0); TOTAL PROTEIN, SERUM 6.2 g/dL (6.4-8.2)
[2019-08-31] MEDS ORDERED: LORazepam 2 MG TABLET PO ONE ×2 (18:00→18:30)
[2019-08-31] MEDS ORDERED: LORazepam 2 MG TABLET PO PRN (18:15)
[2019-08-31] MEDS ORDERED: ZOLPIDEM TARTRATE 10 MG TABLET PO PRN (18:15)
[2019-08-31] MEDS ORDERED: HALOPERIDOL 5 MG TABLET PO PRN (18:15)
[2019-08-31] MEDS ORDERED: GuaiFENesin/D-METHORPHAN [SUGAR-FREE] 200-20MG/10 ML SYRUP UDCUP PO ONE (18:30)
[2019-08-31] MEDS ORDERED: ONDANSETRON HCL 4 MG/2 ML VIAL IVP PRN (18:30)
[2019-08-31] MEDS ORDERED: ACETAMINOPHEN 325 MG TABLET PO PRN (18:30)
[2019-08-31 20:18] LABS: INFLUENZA TYPE A NEGATIVE FOR TYPE A (NEGATIVE); INFLUENZA TYPE B NEGATIVE FOR TYPE B (NEGATIVE)
[2019-08-31] MEDS ORDERED: NICOTINE 21 MG/24 HOUR PATCH TD ONE (20:30)
[2019-08-31 22:34] VITALS: BP 98/58
[2019-09-01] MEDS: OLANZapine 10 MG TABLET PO SCH ×2 (00:28→22:07)
[2019-09-01] MEDS: TraZODone HCL 100 MG TABLET PO SCH ×2 (00:28→22:07)
[2019-09-01] MEDS: 0.9% SODIUM CHLORIDE 10 ML SYRINGE IVP PRN ×2 (00:29→22:08)
[2019-09-01] MEDS ORDERED: INFLUENZA VIRUS VACCINE QVS 2019-20 (3YR+)/PF 60 MCG/0.5 ML SYRINGE IM ONE (03:15)
[2019-09-01 04:42] VITALS: BP 97/51
[2019-09-01 07:44] VITALS: BP 98/47
[2019-09-01 08:00] VITALS: BP 102/64
[2019-09-01] MEDS ORDERED: BISACODYL 10 MG RECTAL RECTAL SUPPOSITORY PR PRN (09:00)
[2019-09-01] MEDS ORDERED: ONDANSETRON HCL 4 MG/2 ML VIAL IVP PRN (09:00)
[2019-09-01] MEDS ORDERED: ACETAMINOPHEN 325 MG TABLET PO PRN (09:00)
[2019-09-01] MEDS ORDERED: ZOLPIDEM TARTRATE 5 MG TABLET PO PRN (09:00)
[2019-09-01] MEDS ORDERED: OLANZapine 10 MG TABLET PO SCH (09:00)
[2019-09-01] MEDS ORDERED: ALBUTEROL SULFATE HFA 90 MCG/PUFF 8 GM INHALER IH PRN (09:00)
[2019-09-01] MEDS ORDERED: MAGNESIUM HYDROXIDE SUSPENSION 30 ML UDCUP PO PRN (09:00)
[2019-09-01 09:09] LABS: AMPHET/METH SCREEN,URINE POSITIVE (NEGATIVE); BARBITURATE SCREEN, URINE NEGATIVE (NEGATIVE); BENZODIAZEPINES SCREEN,URINE NEGATIVE (NEGATIVE); CANNABINOID SCREEN,URINE NEGATIVE (NEGATIVE); COCAINE SCREEN,URINE NEGATIVE (NEGATIVE); METHADONE SCREEN, URINE NEGATIVE (NEGATIVE); OPIATE SCREEN,URINE NEGATIVE (NEGATIVE)
[2019-09-01 09:16] LABS: PHENCYCLIDINE SCREEN,URINE NEGATIVE (NEGATIVE)
[2019-09-01 09:44] LABS: BASOPHILS % (AUTO) 0.5 % (0.0-2.0); EOSINOPHILS % (AUTO) 5.9 % (1.0-6.0); HEMATOCRIT 44.6 % (41-53); LYMPHOCYTES # (AUTO) 1.8 K/uL (1.0-4.8); LYMPHOCYTES % (AUTO) 23.2 % (22.0-44.0); MEAN CORPUSCULAR HEMOGLOBIN 30.5 pg (26.0-34.0); MEAN CORPUSCULAR HGB CONC 33.6 G/dL (31.0-37.0); MEAN CORPUSCULAR VOLUME 91 fL (80-100); MONOCYTES # (AUTO) 0.6 K/uL (0.1-1.0); MONOCYTES % (AUTO) 7.2 % (2.0-9.0); NEUTROPHILS # (AUTO) 4.8 K/uL (1.8-7.7); NEUTROPHILS % (AUTO) 63.2 % (40.0-70.0); PLATELET COUNT (AUTO) 279 K/uL (150-450); RED BLOOD CELL COUNT(AUTO) 4.92 MIL/uL (4.50-5.90); RED CELL DISTRIBUTION WIDTH 13.1 % (11.5-14.5)
[2019-09-01 09:57] LABS: ALANINE AMINOTRANSFERASE 20 U/L (12-78); ALBUMIN 3.4 g/dL (3.4-5.0); ALKALINE PHOSPHATASE 78 U/L (46-116); ANION GAP 5 mmol/L (8-16); ASPARTATE AMINOTRANSFERASE 12 U/L (15-37); BILIRUBIN,TOTAL 0.2 mg/dL (0.1-1.0); CALCIUM, TOTAL 8.8 mg/dL (8.8-10.5); CARBON DIOXIDE 30 mmol/L (22-29); CHLORIDE 108 mmol/L (98-107); CREATININE 1.04 mg/dL (0.60-1.30); GLOMERULAR FILTR. RATE CALC > 60 mL/min (>60); GLUCOSE,RANDOM 120 mg/dL (70-110); POTASSIUM 4.2 mmol/L (3.5-5.1); SODIUM SERUM 143 mmol/L (136-145); TOTAL PROTEIN, SERUM 6.2 g/dL (6.4-8.2); UREA NITROGEN, BLOOD 8 mg/dL (7-18)
[2019-09-01] MEDS: NICOTINE 14 MG/24 HOUR PATCH TD SCH (11:03)
[2019-09-01] MEDS: DOCUSATE SODIUM 100 MG CAPSULE PO SCH ×2 (11:03→21:00)
[2019-09-01 12:23] VITALS: BP 96/52
[2019-09-01 15:48] VITALS: BP 106/58
[2019-09-01] MEDS: HEPARIN SODIUM,PORCINE 5,000 UNITS/ML VIAL SQ SCH (16:13)
[2019-09-01 20:49] VITALS: BP 95/50
[2019-09-01] MEDS ORDERED: TraZODone HCL 100 MG TABLET PO SCH (21:00)
[2019-09-02] VITALS (7 sets, daily range): BP systolic 93–102; BP diastolic 47–65
[2019-09-02 06:55] LABS: BASOPHILS % (AUTO) 0.7 % (0.0-2.0); HEMOGLOBIN 14.7 g/dL (13.5-17.5); LYMPHOCYTES # (AUTO) 2.4 K/uL (1.0-4.8); MEAN CORPUSCULAR HEMOGLOBIN 30.2 pg (26.0-34.0); MEAN CORPUSCULAR HGB CONC 33.5 G/dL (31.0-37.0); MEAN CORPUSCULAR VOLUME 90 fL (80-100); MONOCYTES # (AUTO) 0.5 K/uL (0.1-1.0); MONOCYTES % (AUTO) 7.1 % (2.0-9.0); NEUTROPHILS # (AUTO) 4.3 K/uL (1.8-7.7); NEUTROPHILS % (AUTO) 55.2 % (40.0-70.0); PLATELET COUNT (AUTO) 290 K/uL (150-450); RED BLOOD CELL COUNT(AUTO) 4.88 MIL/uL (4.50-5.90); RED CELL DISTRIBUTION WIDTH 13.1 % (11.5-14.5)
[2019-09-02 07:12] LABS: ANION GAP 9 mmol/L (8-16); CALCIUM, TOTAL 8.6 mg/dL (8.8-10.5); CARBON DIOXIDE 25 mmol/L (22-29); CHLORIDE 108 mmol/L (98-107); CREATININE 0.92 mg/dL (0.60-1.30); GLOMERULAR FILTR. RATE CALC > 60 mL/min (>60); GLUCOSE,RANDOM 96 mg/dL (70-110); POTASSIUM 3.9 mmol/L (3.5-5.1); SODIUM SERUM 142 mmol/L (136-145); UREA NITROGEN, BLOOD 8 mg/dL (7-18)
[2019-09-02] MEDS: HEPARIN SODIUM,PORCINE 5,000 UNITS/ML VIAL SQ SCH ×4 (08:00→23:50)
[2019-09-02] MEDS: DOCUSATE SODIUM 100 MG CAPSULE PO SCH ×2 (08:43→21:00)
[2019-09-02] MEDS: NICOTINE 14 MG/24 HOUR PATCH TD SCH (08:49)
[2019-09-02] MEDS: OLANZapine 10 MG TABLET PO SCH ×2 (23:38→23:48)
[2019-09-02] MEDS: TraZODone HCL 100 MG TABLET PO SCH (23:38)
[2019-09-03 03:36] VITALS: BP 104/61
[2019-09-03] MEDS: HEPARIN SODIUM,PORCINE 5,000 UNITS/ML VIAL SQ SCH ×3 (08:00→23:32)
[2019-09-03] MEDS: NICOTINE 14 MG/24 HOUR PATCH TD SCH (08:36)
[2019-09-03] MEDS: DOCUSATE SODIUM 100 MG CAPSULE PO SCH ×2 (08:36→20:25)
[2019-09-03 08:40] LABS: BASOPHILS % (AUTO) 0.5 % (0.0-2.0); EOSINOPHILS % (AUTO) 5.4 % (1.0-6.0); HEMATOCRIT 46.6 % (41-53); HEMOGLOBIN 15.8 g/dL (13.5-17.5); LYMPHOCYTES # (AUTO) 2.1 K/uL (1.0-4.8); LYMPHOCYTES % (AUTO) 23.1 % (22.0-44.0); MEAN CORPUSCULAR HEMOGLOBIN 30.7 pg (26.0-34.0); MEAN CORPUSCULAR VOLUME 91 fL (80-100); MONOCYTES # (AUTO) 0.7 K/uL (0.1-1.0); MONOCYTES % (AUTO) 7.6 % (2.0-9.0); NEUTROPHILS # (AUTO) 5.8 K/uL (1.8-7.7); NEUTROPHILS % (AUTO) 63.4 % (40.0-70.0); PLATELET COUNT (AUTO) 287 K/uL (150-450); RED BLOOD CELL COUNT(AUTO) 5.15 MIL/uL (4.50-5.90)
[2019-09-03 08:43] VITALS: BP 105/47
[2019-09-03 08:54] LABS: ANION GAP 12 mmol/L (8-16); CALCIUM, TOTAL 9.6 mg/dL (8.8-10.5); CARBON DIOXIDE 23 mmol/L (22-29); CHLORIDE 107 mmol/L (98-107); CREATININE 0.84 mg/dL (0.60-1.30); GLOMERULAR FILTR. RATE CALC > 60 mL/min (>60); GLUCOSE,RANDOM 83 mg/dL (70-110); SODIUM SERUM 142 mmol/L (136-145); UREA NITROGEN, BLOOD 12 mg/dL (7-18)
[2019-09-03 11:51] VITALS: BP 105/60
[2019-09-03 15:54] VITALS: BP 96/62
[2019-09-03] MEDS: TraZODone HCL 100 MG TABLET PO SCH (20:25)
[2019-09-03] MEDS: OLANZapine 10 MG TABLET PO SCH (20:25)
[2019-09-03 20:34] VITALS: BP 97/57
[2019-09-04 04:05] VITALS: BP 101/55
[2019-09-04 07:30] VITALS: BP 91/54
[2019-09-04] MEDS: HEPARIN SODIUM,PORCINE 5,000 UNITS/ML VIAL SQ SCH ×3 (08:00→23:44)
[2019-09-04] MEDS: DOCUSATE SODIUM 100 MG CAPSULE PO SCH ×2 (08:51→21:00)
[2019-09-04] MEDS: NICOTINE 14 MG/24 HOUR PATCH TD SCH (08:56)
[2019-09-04 11:03] VITALS: BP 90/45
[2019-09-04 15:39] VITALS: BP 105/51
[2019-09-04 20:00] VITALS: BP 113/54
[2019-09-04] MEDS: TraZODone HCL 100 MG TABLET PO SCH (21:11)
[2019-09-04] MEDS: OLANZapine 10 MG TABLET PO SCH (21:11)
[2019-09-05] VITALS: BP 99/78
[2019-09-05 04:00] VITALS: BP 97/55
[2019-09-05] MEDS: HEPARIN SODIUM,PORCINE 5,000 UNITS/ML VIAL SQ SCH (08:00)
[2019-09-05] MEDS: DOCUSATE SODIUM 100 MG CAPSULE PO SCH (08:11)
[2019-09-05] MEDS: NICOTINE 14 MG/24 HOUR PATCH TD SCH (08:12)
[2019-09-05 08:19] VITALS: BP 91/61
[2019-09-05 11:24] VITALS: BP 101/68
== END 2019-09-05 14:00 | disposition left against medical advice (07) | DRG 885 ==
LOC: EMS 15:56 → 5N 20:20 → 6N 09-04 17:15 → 5S 09-04 17:16 → 6N 09-04 17:17
PROVIDERS: ADMIT Psychiatry & Neurology Psychiatry; ATTEND Hospitalist
DX: F25.9 Schizoaffective disorder, unspecified (principal); R45.851 Suicidal ideations; Z28.21 Immunization not carried out because of patient refusal; Z20.828 Contact with and (suspected) exposure to other viral communicable diseases; F32.9 Major depressive disorder, single episode, unspecified; K21.9 Gastro-esophageal reflux disease without esophagitis; F41.9 Anxiety disorder, unspecified; F17.210 Nicotine dependence, cigarettes, uncomplicated; J06.9 Acute upper respiratory infection, unspecified; Z53.29 Procedure and treatment not carried out because of patient's decision for other reasons; F19.11 Other psychoactive substance abuse, in remission
CPT/HCPCS: 87635; 87804; G0480; J1644

== ENCOUNTER 2019-09-10 12:07 | Emergency (ER) | payer MEDICARE, OTHER ==
[~2019-09-10] VITALS: Ht 180.3 cm; Wt 93.2 kg
[~2019-09-10 12:07] MED LIST changes: -ALBU8HFA IH; +OLAN10TA3 PO; -PALI234D IM; -QUET25TA PO
[2019-09-10] MEDS ORDERED: OLAN5TAB2 PO (12:26)
[2019-09-10] MEDS ORDERED: THIA100T75 PO (12:26)
[2019-09-10 12:52] LABS: BASOPHILS % (AUTO) 0.4 % (0.0-2.0); EOSINOPHILS % (AUTO) 1.6 % (1.0-6.0); HEMATOCRIT 46.6 % (41-53); HEMOGLOBIN 15.3 g/dL (13.5-17.5); LYMPHOCYTES # (AUTO) 1.9 K/uL (1.0-4.8); LYMPHOCYTES % (AUTO) 15.4 % (22.0-44.0); MEAN CORPUSCULAR HEMOGLOBIN 29.8 pg (26.0-34.0); MEAN CORPUSCULAR HGB CONC 32.9 G/dL (31.0-37.0); MEAN CORPUSCULAR VOLUME 91 fL (80-100); MONOCYTES # (AUTO) 0.9 K/uL (0.1-1.0); MONOCYTES % (AUTO) 7.1 % (2.0-9.0); NEUTROPHILS # (AUTO) 9.1 K/uL (1.8-7.7); NEUTROPHILS % (AUTO) 75.5 % (40.0-70.0); PLATELET COUNT (AUTO) 344 K/uL (150-450); RED BLOOD CELL COUNT(AUTO) 5.13 MIL/uL (4.50-5.90); RED CELL DISTRIBUTION WIDTH 13.2 % (11.5-14.5)
[2019-09-10] MEDS ORDERED: HALOPERIDOL 5 MG TABLET PO ONE (13:00)
[2019-09-10] MEDS ORDERED: LORazepam 2 MG TABLET PO ONE (13:00)
[2019-09-10 13:04] LABS: ANION GAP 11 mmol/L (8-16); CALCIUM, TOTAL 9.8 mg/dL (8.8-10.5); CARBON DIOXIDE 26 mmol/L (22-29); CHLORIDE 102 mmol/L (98-107); CREATININE 0.89 mg/dL (0.60-1.30); GLOMERULAR FILTR. RATE CALC > 60 mL/min (>60); GLUCOSE,RANDOM 114 mg/dL (70-110); POTASSIUM 3.7 mmol/L (3.5-5.1); SODIUM SERUM 139 mmol/L (136-145); UREA NITROGEN, BLOOD 5 mg/dL (7-18)
[2019-09-10 13:09] LABS: ALANINE AMINOTRANSFERASE 33 U/L (12-78); ALBUMIN 4.6 g/dL (3.4-5.0); ALKALINE PHOSPHATASE 108 U/L (46-116); ASPARTATE AMINOTRANSFERASE 16 U/L (15-37); BILIRUBIN,TOTAL 0.6 mg/dL (0.1-1.0); TOTAL PROTEIN, SERUM 8.2 g/dL (6.4-8.2)
[2019-09-10 15:00] VITALS: BP 124/79
== END 2019-09-10 15:03 | disposition home or self-care (01) ==
LOC: EMS 12:09
DX: F20.9 Schizophrenia, unspecified (principal); F41.9 Anxiety disorder, unspecified; F31.9 Bipolar disorder, unspecified; J44.9 Chronic obstructive pulmonary disease, unspecified; K21.9 Gastro-esophageal reflux disease without esophagitis; F17.210 Nicotine dependence, cigarettes, uncomplicated; F19.90 Other psychoactive substance use, unspecified, uncomplicated
CPT/HCPCS: 36415; 80053; 85025; 99284; G0480

== ENCOUNTER 2019-10-01 12:59 | Emergency (ER) | payer MEDICARE, OTHER ==
[~2019-10-01] VITALS: Ht 180.3 cm; Wt 77.3 kg
[~2019-10-01 12:59] MED LIST changes: +OLAN5TAB2 PO; +THIA100T80 PO
[2019-10-01 13:59] LABS: BASOPHILS % (AUTO) 0.6 % (0.0-2.0); HEMATOCRIT 42.4 % (41-53); HEMOGLOBIN 14.3 g/dL (13.5-17.5); LYMPHOCYTES # (AUTO) 2.1 K/uL (1.0-4.8); LYMPHOCYTES % (AUTO) 20.8 % (22.0-44.0); MEAN CORPUSCULAR HEMOGLOBIN 30.5 pg (26.0-34.0); MEAN CORPUSCULAR HGB CONC 33.8 G/dL (31.0-37.0); MEAN CORPUSCULAR VOLUME 90 fL (80-100); MONOCYTES # (AUTO) 0.6 K/uL (0.1-1.0); MONOCYTES % (AUTO) 6.4 % (2.0-9.0); NEUTROPHILS # (AUTO) 6.9 K/uL (1.8-7.7); NEUTROPHILS % (AUTO) 68.2 % (40.0-70.0); PLATELET COUNT (AUTO) 283 K/uL (150-450); RED BLOOD CELL COUNT(AUTO) 4.71 MIL/uL (4.50-5.90); RED CELL DISTRIBUTION WIDTH 13.8 % (11.5-14.5)
[2019-10-01 14:12] LABS: ANION GAP 9 mmol/L (8-16); CALCIUM, TOTAL 8.4 mg/dL (8.8-10.5); CARBON DIOXIDE 23 mmol/L (22-29); CHLORIDE 107 mmol/L (98-107); CREATININE 0.96 mg/dL (0.60-1.30); GLOMERULAR FILTR. RATE CALC > 60 mL/min (>60); GLUCOSE,RANDOM 66 mg/dL (70-110); POTASSIUM 3.7 mmol/L (3.5-5.1); SODIUM SERUM 139 mmol/L (136-145); UREA NITROGEN, BLOOD 10 mg/dL (7-18)
[2019-10-01 14:29] LABS: ALANINE AMINOTRANSFERASE 26 U/L (12-78); ALBUMIN 3.8 g/dL (3.4-5.0); ALKALINE PHOSPHATASE 90 U/L (46-116); ASPARTATE AMINOTRANSFERASE 13 U/L (15-37); BILIRUBIN,TOTAL 0.5 mg/dL (0.1-1.0); TOTAL PROTEIN, SERUM 6.2 g/dL (6.4-8.2)
[2019-10-01 15:35] VITALS: BP 117/67
== END 2019-10-01 15:42 | disposition home or self-care (01) ==
LOC: EMS 13:03
DX: F42.8 Other obsessive-compulsive disorder (principal); F41.9 Anxiety disorder, unspecified; J45.909 Unspecified asthma, uncomplicated; F31.9 Bipolar disorder, unspecified; J44.9 Chronic obstructive pulmonary disease, unspecified; K21.9 Gastro-esophageal reflux disease without esophagitis; F20.9 Schizophrenia, unspecified; F17.210 Nicotine dependence, cigarettes, uncomplicated; F19.90 Other psychoactive substance use, unspecified, uncomplicated
CPT/HCPCS: 36415; 80053; 85025; 99284; G0480

== ENCOUNTER 2019-10-16 15:17 | Inpatient (IN) | payer MEDICARE, MEDICAID ==
[~2019-10-16] VITALS: Ht 180.3 cm; Wt 88.0 kg
[2019-10-16] MEDS ORDERED: LORazepam 2 MG TABLET ONE (16:09)
[2019-10-16] MEDS ORDERED: HALOPERIDOL 5 MG TABLET ONE (16:09)
[2019-10-16] MEDS ORDERED: LORazepam 2 MG TABLET PO PRN (16:45)
[2019-10-16] MEDS ORDERED: ZOLPIDEM TARTRATE 10 MG TABLET PO PRN (16:45)
[2019-10-16] MEDS ORDERED: HALOPERIDOL 5 MG TABLET PO PRN (16:45)
[2019-10-16 17:17] VITALS: BP 126/82
[2019-10-16 17:45] VITALS: BP 124/76
[2019-10-16] MEDS ORDERED: METO25 PO (18:02)
[2019-10-16] MEDS ORDERED: PROP20TA18 PO (18:02)
[2019-10-16] MEDS ORDERED: ALBU8HFA PUFF (18:02)
[2019-10-16] MEDS ORDERED: -PHARMACY VACCINE NOTE- MISC ONE (18:30)
[2019-10-16 18:51] VITALS: BP 127/74
[2019-10-16] MEDS: NICOTINE 14 MG/24 HOUR PATCH TD SCH (19:37)
[2019-10-16 19:45] VITALS: BP 120/75
[2019-10-16 20:45] VITALS: BP 100/60
[2019-10-17] VITALS (7 sets, daily range): BP systolic 100–114; BP diastolic 60–69
[2019-10-17] MEDS: NICOTINE 14 MG/24 HOUR PATCH TD SCH (08:28)
[2019-10-17] MEDS: METOPROLOL TARTRATE 25 MG TABLET PO SCH ×2 (08:28→16:53)
[2019-10-17] MEDS: PROPRANOLOL HCL 20 MG TABLET PO SCH ×2 (08:28→16:52)
[2019-10-17] MEDS ORDERED: NICOTINE 14 MG/24 HOUR PATCH TD SCH (09:00)
[2019-10-17] MEDS: ALBUTEROL SULFATE HFA 90 MCG/PUFF 8 GM INHALER IH PRN (09:06)
[2019-10-17] MEDS: OLANZapine 5 MG TABLET PO SCH (12:02)
[2019-10-17] MEDS: TraZODone HCL 100 MG TABLET PO SCH (20:29)
[2019-10-17] MEDS: OLANZapine 10 MG TABLET PO SCH (20:29)
[2019-10-18 00:16] VITALS: BP 131/72
[2019-10-18 04:06] VITALS: BP 134/81
[2019-10-18 08:02] LABS: BASOPHILS % (AUTO) 0.6 % (0.0-2.0); EOSINOPHILS % (AUTO) 3.7 % (1.0-6.0); HEMATOCRIT 42.2 % (41-53); HEMOGLOBIN 14.3 g/dL (13.5-17.5); LYMPHOCYTES # (AUTO) 2.2 K/uL (1.0-4.8); LYMPHOCYTES % (AUTO) 25.9 % (22.0-44.0); MEAN CORPUSCULAR HEMOGLOBIN 30.9 pg (26.0-34.0); MEAN CORPUSCULAR HGB CONC 33.9 G/dL (31.0-37.0); MEAN CORPUSCULAR VOLUME 91 fL (80-100); MONOCYTES # (AUTO) 0.6 K/uL (0.1-1.0); MONOCYTES % (AUTO) 7.1 % (2.0-9.0); NEUTROPHILS # (AUTO) 5.3 K/uL (1.8-7.7); NEUTROPHILS % (AUTO) 62.7 % (40.0-70.0); PLATELET COUNT (AUTO) 274 K/uL (150-450); RED BLOOD CELL COUNT(AUTO) 4.63 MIL/uL (4.50-5.90)
[2019-10-18] MEDS: PROPRANOLOL HCL 20 MG TABLET PO SCH ×2 (08:04→17:00)
[2019-10-18] MEDS: NICOTINE 14 MG/24 HOUR PATCH TD SCH (08:04)
[2019-10-18] MEDS: OLANZapine 5 MG TABLET PO SCH (08:04)
[2019-10-18] MEDS: METOPROLOL TARTRATE 25 MG TABLET PO SCH ×2 (08:05→17:00)
[2019-10-18 08:28] LABS: ALANINE AMINOTRANSFERASE 27 U/L (12-78); ALBUMIN 3.5 g/dL (3.4-5.0); ALKALINE PHOSPHATASE 78 U/L (46-116); ANION GAP 10 mmol/L (8-16); ASPARTATE AMINOTRANSFERASE 14 U/L (15-37); BILIRUBIN,TOTAL 0.4 mg/dL (0.1-1.0); CALCIUM, TOTAL 8.8 mg/dL (8.8-10.5); CARBON DIOXIDE 25 mmol/L (22-29); CHLORIDE 107 mmol/L (98-107); CHOL/HDL RATIO 4.9 (4.2-7.3); CHOLESTEROL 183 mg/dL (131-200); CREATININE 0.79 mg/dL (0.60-1.30); FREE T4 (FREE THYROXINE) 1.07 ng/dL (0.76-1.46); GLOMERULAR FILTR. RATE CALC > 60 mL/min (>60); GLUCOSE,RANDOM 90 mg/dL (70-110); HDL CHOLESTEROL 37 mg/dL (40-60); LDL CHOL (CALC.) 113 mg/dL (0-130); SODIUM SERUM 142 mmol/L (136-145); THYROID STIMULATING HORMONE 0.83 uIU/mL (0.36-3.74); TOTAL PROTEIN, SERUM 6.3 g/dL (6.4-8.2); TRIGLYCERIDES 164 mg/dL (15-150); UREA NITROGEN, BLOOD 6 mg/dL (7-18)
[2019-10-18 08:35] VITALS: BP 107/62
[2019-10-18 08:55] VITALS: BP 107/62
[2019-10-18 17:10] VITALS: BP 101/65
[2019-10-18 17:23] VITALS: BP 101/65
[2019-10-18] MEDS: TraZODone HCL 100 MG TABLET PO SCH (20:30)
[2019-10-18] MEDS: OLANZapine 10 MG TABLET PO SCH (20:30)
[2019-10-19 06:32] VITALS: BP 98/62
[2019-10-19] MEDS: OLANZapine 5 MG TABLET PO SCH (08:03)
[2019-10-19] MEDS: PROPRANOLOL HCL 20 MG TABLET PO SCH ×2 (08:03→17:00)
[2019-10-19] MEDS: METOPROLOL TARTRATE 25 MG TABLET PO SCH ×2 (08:03→17:00)
[2019-10-19] MEDS: NICOTINE 14 MG/24 HOUR PATCH TD SCH (08:06)
[2019-10-19 08:31] VITALS: BP 101/63
[2019-10-19 10:20] VITALS: BP 101/63
[2019-10-19] MEDS: ALBUTEROL SULFATE HFA 90 MCG/PUFF 8 GM INHALER IH PRN (15:32)
[2019-10-19 17:28] VITALS: BP 96/66
[2019-10-19 18:45] VITALS: BP 96/66
[2019-10-19] MEDS: OLANZapine 10 MG TABLET PO SCH (20:30)
[2019-10-19] MEDS: TraZODone HCL 100 MG TABLET PO SCH (20:30)
[2019-10-20 06:27] VITALS: BP 101/66
[2019-10-20 06:31] VITALS: BP 101/66
[2019-10-20 08:05] VITALS: BP_SYST 105; BP_SYST 95; BP_DIAS 65
[2019-10-20] MEDS: OLANZapine 5 MG TABLET PO SCH (08:32)
[2019-10-20] MEDS: NICOTINE 14 MG/24 HOUR PATCH TD SCH (08:34)
[2019-10-20] MEDS: PROPRANOLOL HCL 20 MG TABLET PO SCH (09:22)
[2019-10-20] MEDS ORDERED: TRAZ-257 PO (11:15)
== END 2019-10-20 11:45 | disposition home or self-care (01) | DRG 885 ==
LOC: B2X 17:12
PROVIDERS: ATTEND Psychiatry & Neurology Psychiatry
DX: F20.0 Paranoid schizophrenia (principal); R45.851 Suicidal ideations; E78.5 Hyperlipidemia, unspecified; J44.9 Chronic obstructive pulmonary disease, unspecified; Z72.0 Tobacco use; F10.10 Alcohol abuse, uncomplicated; Z81.8 Family history of other mental and behavioral disorders; Z91.5 Personal history of self-harm; F32.9 Major depressive disorder, single episode, unspecified; F41.9 Anxiety disorder, unspecified; K21.9 Gastro-esophageal reflux disease without esophagitis; Y90.9 Presence of alcohol in blood, level not specified; F15.10 Other stimulant abuse, uncomplicated; K59.00 Constipation, unspecified; F19.10 Other psychoactive substance abuse, uncomplicated; G47.00 Insomnia, unspecified
CPT/HCPCS: 84439; 84443; 87081; J3535

== ENCOUNTER 2019-10-25 12:46 | Inpatient (IN) | payer MEDICARE, MEDICAID ==
[~2019-10-25] VITALS: Ht 180.3 cm; Wt 86.3 kg
[~2019-10-25 12:46] MED LIST changes: +PROP20TA18 PO; -THIA100T80 PO
[2019-10-25] MEDS ORDERED: LOPERAMIDE HCL 2 MG CAPSULE PO PRN (13:00)
[2019-10-25] MEDS ORDERED: QUEtiapine FUMARATE 100 MG TABLET PO PRN (13:00)
[2019-10-25] MEDS ORDERED: LORazepam 1 MG TABLET PO PRN (13:00)
[2019-10-25] MEDS ORDERED: ACETAMINOPHEN 325 MG TABLET PO PRN (13:00)
[2019-10-25] MEDS ORDERED: MAGNESIUM HYDROXIDE SUSPENSION 30 ML UDCUP PO PRN (13:00)
[2019-10-25] MEDS ORDERED: MAG HYDROX/AL HYDROX/SIMETH ES 30 ML SUSPENSION UDCUP PO PRN (13:00)
[2019-10-25] MEDS ORDERED: LORazepam 2 MG TABLET PO PRN (13:00)
[2019-10-25] MEDS ORDERED: TUBERCULIN, PURIFIED PROTEIN DERIVATIVE 5 TU/0.1 ML SYRINGE ID ONE (13:00)
[2019-10-25] MEDS ORDERED: HALOPERIDOL 5 MG TABLET PO PRN (13:00)
[2019-10-25] MEDS ORDERED: ZOLPIDEM TARTRATE 10 MG TABLET PO PRN (13:00)
[2019-10-25] MEDS ORDERED: OLANZapine 5 MG RAPDIS TABLET PO PRN (13:00)
[2019-10-25] MEDS ORDERED: PROMETHAZINE HCL 25 MG TABLET PO PRN (13:00)
[2019-10-25 14:25] VITALS: BP 130/78
[2019-10-25 14:54] VITALS: BP 130/78
[2019-10-25 16:51] VITALS: BP 98/56
[2019-10-25 19:48] VITALS: BP 112/74
[2019-10-26] MEDS ORDERED: ACETAMINOPHEN 325 MG TABLET PO PRN (08:00)
[2019-10-26] MEDS ORDERED: MAGNESIUM HYDROXIDE SUSPENSION 30 ML UDCUP PO PRN (08:00)
[2019-10-26] MEDS ORDERED: GuaiFENesin/D-METHORPHAN [SUGAR-FREE] 200-20MG/10 ML SYRUP UDCUP PO PRN (08:00)
[2019-10-26] MEDS ORDERED: CloNIDine HCL 0.1 MG TABLET PO PRN (08:00)
[2019-10-26] MEDS ORDERED: ONDANSETRON HCL 4 MG TABLET PO PRN (08:00)
[2019-10-26] MEDS ORDERED: PETROLATUM,WHITE 28 GM JELLY TP PRN (08:00)
[2019-10-26] MEDS ORDERED: DOCUSATE SODIUM 100 MG CAPSULE PO PRN (08:00)
[2019-10-26] MEDS ORDERED: IBUPROFEN 400 MG TABLET PO PRN (08:00)
[2019-10-26] MEDS ORDERED: LOPERAMIDE HCL 2 MG CAPSULE PO PRN (08:00)
[2019-10-26] MEDS ORDERED: MAG HYDROX/AL HYDROX/SIMETH ES 30 ML SUSPENSION UDCUP PO PRN (08:00)
[2019-10-26] MEDS ORDERED: NICOTINE 14 MG/24 HOUR PATCH TD PRN (08:00)
[2019-10-26] MEDS: NICOTINE 21 MG/24 HOUR PATCH TD SCH (09:32)
[2019-10-26] MEDS: PROPRANOLOL HCL 20 MG TABLET PO SCH ×2 (09:33→16:27)
[2019-10-26 09:43] LABS: BASOPHILS % (AUTO) 0.4 % (0.0-2.0); EOSINOPHILS % (AUTO) 2.9 % (1.0-6.0); HEMATOCRIT 44.9 % (41-53); LYMPHOCYTES # (AUTO) 1.9 K/uL (1.0-4.8); LYMPHOCYTES % (AUTO) 20.3 % (22.0-44.0); MEAN CORPUSCULAR HEMOGLOBIN 30.3 pg (26.0-34.0); MEAN CORPUSCULAR HGB CONC 33.4 G/dL (31.0-37.0); MEAN CORPUSCULAR VOLUME 91 fL (80-100); MONOCYTES # (AUTO) 0.7 K/uL (0.1-1.0); MONOCYTES % (AUTO) 7.3 % (2.0-9.0); NEUTROPHILS # (AUTO) 6.6 K/uL (1.8-7.7); NEUTROPHILS % (AUTO) 69.1 % (40.0-70.0); PLATELET COUNT (AUTO) 276 K/uL (150-450); RED BLOOD CELL COUNT(AUTO) 4.95 MIL/uL (4.50-5.90); RED CELL DISTRIBUTION WIDTH 14.1 % (11.5-14.5)
[2019-10-26 09:55] LABS: LITHIUM < 0.20 mmol/L (0.60-1.20)
[2019-10-26 10:14] LABS: ALANINE AMINOTRANSFERASE 21 U/L (12-78); ALBUMIN 3.6 g/dL (3.4-5.0); ALKALINE PHOSPHATASE 78 U/L (46-116); ANION GAP 12 mmol/L (8-16); ASPARTATE AMINOTRANSFERASE 14 U/L (15-37); BILIRUBIN,TOTAL 0.4 mg/dL (0.1-1.0); CALCIUM, TOTAL 9.1 mg/dL (8.8-10.5); CARBON DIOXIDE 24 mmol/L (22-29); CHLORIDE 104 mmol/L (98-107); CHOL/HDL RATIO 4.8 (4.2-7.3); CHOLESTEROL 206 mg/dL (131-200); CREATININE 0.72 mg/dL (0.60-1.30); FREE T4 (FREE THYROXINE) 1.05 ng/dL (0.76-1.46); GLOMERULAR FILTR. RATE CALC > 60 mL/min (>60); GLUCOSE,RANDOM 91 mg/dL (70-110); HCG,QUANTITATIVE < 1 mIU/mL (0-6); HDL CHOLESTEROL 43 mg/dL (40-60); LDL CHOL (CALC.) 130 mg/dL (0-130); POTASSIUM 4.2 mmol/L (3.5-5.1); SODIUM SERUM 140 mmol/L (136-145); THYROID STIMULATING HORMONE 0.34 uIU/mL (0.36-3.74); TOTAL PROTEIN, SERUM 6.6 g/dL (6.4-8.2); TRIGLYCERIDES 163 mg/dL (15-150); UREA NITROGEN, BLOOD 9 mg/dL (7-18)
[2019-10-26 10:18] LABS: HEMOGLOBIN A1C 5.6 % (3.8-5.6)
[2019-10-26] MEDS: ALBUTEROL SULFATE HFA 90 MCG/PUFF 8 GM INHALER IH PRN (11:46)
[2019-10-26 12:50] VITALS: BP 100/62
[2019-10-26] MEDS: OLANZapine 5 MG TABLET PO SCH (13:09)
[2019-10-26 16:40] VITALS: BP 121/80
[2019-10-26] MEDS ORDERED: TraZODone HCL 50 MG TABLET PO SCH (21:00)
[2019-10-26] MEDS ORDERED: TraZODone HCL 100 MG TABLET PO SCH (21:00)
[2019-10-26] MEDS ORDERED: OLANZapine 10 MG TABLET PO SCH (21:00)
[2019-10-26 21:16] LABS: APPEARANCE,URINE CLEAR (CLEAR); BILIRUBIN,URINE NEGATIVE (NEGATIVE); GLUCOSE, URINE (UA) NEGATIVE (NEGATIVE); KETONES,URINE NEGATIVE (NEGATIVE); LEUKOCYTE ESTERASE ,URINE NEGATIVE (NEGATIVE); NITRATE,URINE NEGATIVE (NEGATIVE); OCCULT BLOOD,URINE NEGATIVE (NEGATIVE); PROTEIN,URINE NEGATIVE (NEGATIVE)
[2019-10-26 21:22] LABS: AMPHET/METH SCREEN,URINE POSITIVE (NEGATIVE); BARBITURATE SCREEN, URINE NEGATIVE (NEGATIVE); BENZODIAZEPINES SCREEN,URINE NEGATIVE (NEGATIVE); CANNABINOID SCREEN,URINE NEGATIVE (NEGATIVE); COCAINE SCREEN,URINE NEGATIVE (NEGATIVE); METHADONE SCREEN, URINE NEGATIVE (NEGATIVE); OPIATE SCREEN,URINE NEGATIVE (NEGATIVE)
[2019-10-26 21:25] LABS: PHENCYCLIDINE SCREEN,URINE NEGATIVE (NEGATIVE)
[2019-10-27 08:37] VITALS: BP 96/58
[2019-10-27] MEDS: PROPRANOLOL HCL 20 MG TABLET PO SCH (09:00)
[2019-10-27] MEDS: OLANZapine 5 MG TABLET PO SCH (09:19)
[2019-10-27] MEDS: NICOTINE 21 MG/24 HOUR PATCH TD SCH (09:55)
[2019-10-27] MEDS: ALBUTEROL SULFATE HFA 90 MCG/PUFF 8 GM INHALER IH PRN (10:49)
== END 2019-10-27 16:15 | disposition home or self-care (01) | DRG 885 ==
LOC: 3EX 12:59
PROVIDERS: ADMIT Psychiatry & Neurology Psychiatry; ATTEND Psychiatry & Neurology Psychiatry
DX: F25.0 Schizoaffective disorder, bipolar type (principal); E78.5 Hyperlipidemia, unspecified; F10.10 Alcohol abuse, uncomplicated; F17.200 Nicotine dependence, unspecified, uncomplicated; J44.9 Chronic obstructive pulmonary disease, unspecified; Z91.19 Patient's noncompliance with other medical treatment and regimen
CPT/HCPCS: 80307; 83036; 84436; 84439; 84443; 86592; 87081; G0378; G0480; J3535

== ENCOUNTER 2019-11-02 01:27 | Emergency (ER) | payer MEDICARE, OTHER ==
[~2019-11-02] VITALS: Ht 180.3 cm; Wt 86.4 kg
[2019-11-02] MEDS ORDERED: PERTUSS(ACELL),DIPH,TET VAC/PF 0.5 ML VIAL IM ONE (02:00)
[2019-11-02] MEDS ORDERED: LIDOCAINE 1% 10 ML VIAL INJ ONE (02:15)
[2019-11-02 02:54] VITALS: BP 118/91
== END 2019-11-02 03:03 | disposition home or self-care (01) ==
LOC: EMS 01:29
DX: S01.81XA Laceration without foreign body of other part of head, initial encounter (principal); F17.210 Nicotine dependence, cigarettes, uncomplicated; F15.90 Other stimulant use, unspecified, uncomplicated; J45.909 Unspecified asthma, uncomplicated; F20.9 Schizophrenia, unspecified; Y04.0XXA Assault by unarmed brawl or fight, initial encounter; Y93.89 Activity, other specified; Y92.89 Other specified places as the place of occurrence of the external cause; Y99.8 Other external cause status
CPT/HCPCS: 12011; 90471; 90715; 99283; J3490

== ENCOUNTER 2019-11-05 20:25 | Emergency (ER) | payer MEDICARE, OTHER ==
[~2019-11-05] VITALS: Ht 180.3 cm; Wt 84.1 kg
[2019-11-05 20:29] VITALS: BP 127/75
== END 2019-11-05 23:20 | disposition left against medical advice (07) ==
LOC: EMS 20:25
DX: R45.851 Suicidal ideations (principal); Z53.21 Procedure and treatment not carried out due to patient leaving prior to being seen by health care provider

== ENCOUNTER 2019-11-28 11:59 | Emergency (ER) | payer MEDICARE, OTHER ==
[~2019-11-28] VITALS: Ht 177.8 cm; Wt 72.7 kg
[2019-11-28 13:03] LABS: BASOPHILS % (AUTO) 0.6 % (0.0-2.0); EOSINOPHILS % (AUTO) 1.3 % (1.0-6.0); HEMATOCRIT 48.1 % (41-53); HEMOGLOBIN 16.5 g/dL (13.5-17.5); LYMPHOCYTES # (AUTO) 2.6 K/uL (1.0-4.8); LYMPHOCYTES % (AUTO) 20.5 % (22.0-44.0); MEAN CORPUSCULAR HEMOGLOBIN 31.3 pg (26.0-34.0); MEAN CORPUSCULAR HGB CONC 34.4 G/dL (31.0-37.0); MEAN CORPUSCULAR VOLUME 91 fL (80-100); MONOCYTES # (AUTO) 0.8 K/uL (0.1-1.0); MONOCYTES % (AUTO) 6.5 % (2.0-9.0); NEUTROPHILS # (AUTO) 8.9 K/uL (1.8-7.7); NEUTROPHILS % (AUTO) 71.1 % (40.0-70.0); PLATELET COUNT (AUTO) 367 K/uL (150-450); RED BLOOD CELL COUNT(AUTO) 5.28 MIL/uL (4.50-5.90); RED CELL DISTRIBUTION WIDTH 13.8 % (11.5-14.5)
[2019-11-28] MEDS ORDERED: LORazepam 1 MG TABLET PO ONE (13:45)
[2019-11-28 13:52] LABS: ANION GAP 10 mmol/L (8-16); CALCIUM, TOTAL 9.6 mg/dL (8.8-10.5); CARBON DIOXIDE 27 mmol/L (22-29); CHLORIDE 103 mmol/L (98-107); CREATININE 0.89 mg/dL (0.60-1.30); GLOMERULAR FILTR. RATE CALC > 60 mL/min (>60); GLUCOSE,RANDOM 121 mg/dL (70-110); POTASSIUM 4.2 mmol/L (3.5-5.1); SODIUM SERUM 140 mmol/L (136-145); UREA NITROGEN, BLOOD 9 mg/dL (7-18)
[2019-11-28 13:58] LABS: ALANINE AMINOTRANSFERASE 26 U/L (12-78); ALBUMIN 4.8 g/dL (3.4-5.0); ALKALINE PHOSPHATASE 102 U/L (46-116); ASPARTATE AMINOTRANSFERASE 16 U/L (15-37); BILIRUBIN,TOTAL 0.5 mg/dL (0.1-1.0); TOTAL PROTEIN, SERUM 8.9 g/dL (6.4-8.2)
[2019-11-28 15:20] VITALS: BP 120/77
[2019-11-28 15:21] LABS: AMPHET/METH SCREEN,URINE POSITIVE (NEGATIVE); BARBITURATE SCREEN, URINE NEGATIVE (NEGATIVE); BENZODIAZEPINES SCREEN,URINE NEGATIVE (NEGATIVE); CANNABINOID SCREEN,URINE NEGATIVE (NEGATIVE); COCAINE SCREEN,URINE NEGATIVE (NEGATIVE); METHADONE SCREEN, URINE NEGATIVE (NEGATIVE); OPIATE SCREEN,URINE NEGATIVE (NEGATIVE)
[2019-11-28 15:22] LABS: PHENCYCLIDINE SCREEN,URINE NEGATIVE (NEGATIVE)
== END 2019-11-28 15:50 | disposition home or self-care (01) ==
LOC: EMS 12:00
DX: F41.9 Anxiety disorder, unspecified (principal); F15.10 Other stimulant abuse, uncomplicated; F17.210 Nicotine dependence, cigarettes, uncomplicated; J45.909 Unspecified asthma, uncomplicated; F31.9 Bipolar disorder, unspecified
CPT/HCPCS: 36415; 80053; 80307; 85025; 99283; G0480

== ENCOUNTER 2019-12-12 10:20 | Emergency (ER) | payer MEDICARE, OTHER ==
[~2019-12-12] VITALS: Ht 180.3 cm; Wt 88.6 kg
[2019-12-12] MEDS ORDERED: HALOPERIDOL 5 MG TABLET PO ONE (11:00)
[2019-12-12] MEDS ORDERED: LORazepam 2 MG TABLET PO ONE (11:00)
[2019-12-12 11:26] LABS: BASOPHILS % (AUTO) 0.3 % (0.0-2.0); EOSINOPHILS % (AUTO) 0.4 % (1.0-6.0); LYMPHOCYTES # (AUTO) 1.8 K/uL (1.0-4.8); LYMPHOCYTES % (AUTO) 9.6 % (22.0-44.0); MEAN CORPUSCULAR VOLUME 91 fL (80-100); MONOCYTES # (AUTO) 1.3 K/uL (0.1-1.0); MONOCYTES % (AUTO) 7.1 % (2.0-9.0); NEUTROPHILS # (AUTO) 15.2 K/uL (1.8-7.7); NEUTROPHILS % (AUTO) 82.6 % (40.0-70.0); PLATELET COUNT (AUTO) 312 K/uL (150-450); RED BLOOD CELL COUNT(AUTO) 4.83 MIL/uL (4.50-5.90); RED CELL DISTRIBUTION WIDTH 13.9 % (11.5-14.5)
[2019-12-12 11:38] LABS: ANION GAP 12 mmol/L (8-16); CALCIUM, TOTAL 9.8 mg/dL (8.8-10.5); CARBON DIOXIDE 23 mmol/L (22-29); CHLORIDE 101 mmol/L (98-107); CREATININE 1.05 mg/dL (0.60-1.30); GLOMERULAR FILTR. RATE CALC > 60 mL/min (>60); GLUCOSE,RANDOM 79 mg/dL (70-110); POTASSIUM 4.5 mmol/L (3.5-5.1); SODIUM SERUM 136 mmol/L (136-145); UREA NITROGEN, BLOOD 18 mg/dL (7-18)
[2019-12-12 11:46] VITALS: BP 133/81
[2019-12-12 11:48] LABS: AMPHET/METH SCREEN,URINE POSITIVE (NEGATIVE); BARBITURATE SCREEN, URINE NEGATIVE (NEGATIVE); BENZODIAZEPINES SCREEN,URINE NEGATIVE (NEGATIVE); CANNABINOID SCREEN,URINE NEGATIVE (NEGATIVE); COCAINE SCREEN,URINE NEGATIVE (NEGATIVE); METHADONE SCREEN, URINE NEGATIVE (NEGATIVE); OPIATE SCREEN,URINE NEGATIVE (NEGATIVE); PHENCYCLIDINE SCREEN,URINE NEGATIVE (NEGATIVE)
[2019-12-12 11:51] LABS: ALANINE AMINOTRANSFERASE 39 U/L (12-78); ALBUMIN 4.8 g/dL (3.4-5.0); ALKALINE PHOSPHATASE 104 U/L (46-116); ASPARTATE AMINOTRANSFERASE 38 U/L (15-37); BILIRUBIN,TOTAL 0.9 mg/dL (0.1-1.0); TOTAL PROTEIN, SERUM 9.2 g/dL (6.4-8.2)
== END 2019-12-12 13:39 | disposition home or self-care (01) ==
LOC: EMS 10:27
DX: F25.9 Schizoaffective disorder, unspecified (principal); F15.10 Other stimulant abuse, uncomplicated; F41.9 Anxiety disorder, unspecified; F31.9 Bipolar disorder, unspecified; J45.909 Unspecified asthma, uncomplicated; K21.9 Gastro-esophageal reflux disease without esophagitis; F17.210 Nicotine dependence, cigarettes, uncomplicated; F19.90 Other psychoactive substance use, unspecified, uncomplicated
CPT/HCPCS: 36415; 80053; 80307; 85025; 99284; G0480

== ENCOUNTER 2019-12-20 20:24 | Emergency (ER) | payer MEDICARE, OTHER ==
[~2019-12-20] VITALS: Ht 180.3 cm; Wt 88.6 kg
[~2019-12-20 20:24] MED LIST changes: -OLAN5TAB2 PO; -PROP20TA18 PO
[2019-12-20] MEDS ORDERED: LORA-1000 PO (20:36)
[2019-12-20 23:03] LABS: BASOPHILS % (AUTO) 0.6 % (0.0-2.0); EOSINOPHILS % (AUTO) 3.5 % (1.0-6.0); HEMATOCRIT 43.4 % (41-53); HEMOGLOBIN 14.5 g/dL (13.5-17.5); LYMPHOCYTES # (AUTO) 3.1 K/uL (1.0-4.8); LYMPHOCYTES % (AUTO) 23.3 % (22.0-44.0); MEAN CORPUSCULAR HEMOGLOBIN 30.2 pg (26.0-34.0); MEAN CORPUSCULAR HGB CONC 33.4 G/dL (31.0-37.0); MEAN CORPUSCULAR VOLUME 91 fL (80-100); MONOCYTES % (AUTO) 7.4 % (2.0-9.0); NEUTROPHILS # (AUTO) 8.5 K/uL (1.8-7.7); NEUTROPHILS % (AUTO) 65.2 % (40.0-70.0); PLATELET COUNT (AUTO) 331 K/uL (150-450); RED CELL DISTRIBUTION WIDTH 13.4 % (11.5-14.5)
[2019-12-20] MEDS ORDERED: DiphenhydrAMINE HCL 25 MG CAPSULE PO ONE (23:15)
[2019-12-20] MEDS ORDERED: LORazepam 1 MG TABLET PO ONE (23:15)
[2019-12-20] MEDS ORDERED: HALOPERIDOL 5 MG TABLET PO ONE (23:15)
[2019-12-20 23:20] LABS: ANION GAP 5 mmol/L (8-16); CALCIUM, TOTAL 9.2 mg/dL (8.8-10.5); CARBON DIOXIDE 29 mmol/L (22-29); CHLORIDE 103 mmol/L (98-107); CREATININE 1.18 mg/dL (0.60-1.30); GLOMERULAR FILTR. RATE CALC > 60 mL/min (>60); GLUCOSE,RANDOM 91 mg/dL (70-110); POTASSIUM 3.8 mmol/L (3.5-5.1); SODIUM SERUM 137 mmol/L (136-145); UREA NITROGEN, BLOOD 10 mg/dL (7-18)
[2019-12-20 23:26] LABS: ALANINE AMINOTRANSFERASE 31 U/L (12-78); ALBUMIN 3.9 g/dL (3.4-5.0); ALKALINE PHOSPHATASE 96 U/L (46-116); ASPARTATE AMINOTRANSFERASE 23 U/L (15-37); BILIRUBIN,TOTAL 0.2 mg/dL (0.1-1.0); TOTAL PROTEIN, SERUM 7.3 g/dL (6.4-8.2)
[2019-12-21 01:45] VITALS: BP 110/69
== END 2019-12-21 02:04 | disposition home or self-care (01) ==
LOC: EMS 20:27
DX: F20.9 Schizophrenia, unspecified (principal); F15.10 Other stimulant abuse, uncomplicated; F41.9 Anxiety disorder, unspecified; F31.9 Bipolar disorder, unspecified; J45.909 Unspecified asthma, uncomplicated; K21.9 Gastro-esophageal reflux disease without esophagitis; F17.210 Nicotine dependence, cigarettes, uncomplicated
CPT/HCPCS: 36415; 80053; 85025; 99284; G0480

== ENCOUNTER 2020-01-19 19:15 | Emergency (ER) | payer MEDICARE, OTHER ==
[~2020-01-19] VITALS: Ht 180.3 cm; Wt 86.4 kg
[2020-01-19 22:39] LABS: BASOPHILS % (AUTO) 0.7 % (0.0-2.0); EOSINOPHILS % (AUTO) 2.4 % (1.0-6.0); HEMATOCRIT 48.1 % (41-53); HEMOGLOBIN 16.1 g/dL (13.5-17.5); LYMPHOCYTES # (AUTO) 3.1 K/uL (1.0-4.8); LYMPHOCYTES % (AUTO) 20.7 % (22.0-44.0); MEAN CORPUSCULAR HEMOGLOBIN 30.6 pg (26.0-34.0); MEAN CORPUSCULAR HGB CONC 33.5 G/dL (31.0-37.0); MEAN CORPUSCULAR VOLUME 91 fL (80-100); MONOCYTES # (AUTO) 0.8 K/uL (0.1-1.0); MONOCYTES % (AUTO) 5.6 % (2.0-9.0); NEUTROPHILS # (AUTO) 10.6 K/uL (1.8-7.7); NEUTROPHILS % (AUTO) 70.6 % (40.0-70.0); PLATELET COUNT (AUTO) 333 K/uL (150-450); RED BLOOD CELL COUNT(AUTO) 5.27 MIL/uL (4.50-5.90); RED CELL DISTRIBUTION WIDTH 13.2 % (11.5-14.5)
[2020-01-19 22:53] LABS: ANION GAP 9 mmol/L (8-16); CALCIUM, TOTAL 9.6 mg/dL (8.8-10.5); CARBON DIOXIDE 25 mmol/L (22-29); CHLORIDE 100 mmol/L (98-107); CREATININE 1.14 mg/dL (0.60-1.30); GLOMERULAR FILTR. RATE CALC > 60 mL/min (>60); GLUCOSE,RANDOM 99 mg/dL (70-110); POTASSIUM 3.7 mmol/L (3.5-5.1); SODIUM SERUM 134 mmol/L (136-145); UREA NITROGEN, BLOOD 8 mg/dL (7-18)
[2020-01-19 23:09] LABS: ALANINE AMINOTRANSFERASE 24 U/L (12-78); ALBUMIN 4.1 g/dL (3.4-5.0); ALKALINE PHOSPHATASE 104 U/L (46-116); ASPARTATE AMINOTRANSFERASE 12 U/L (15-37); BILIRUBIN,TOTAL 0.4 mg/dL (0.1-1.0); TOTAL PROTEIN, SERUM 8.4 g/dL (6.4-8.2)
[2020-01-20 00:31] LABS: AMPHET/METH SCREEN,URINE POSITIVE (NEGATIVE); BARBITURATE SCREEN, URINE NEGATIVE (NEGATIVE); BENZODIAZEPINES SCREEN,URINE NEGATIVE (NEGATIVE); CANNABINOID SCREEN,URINE NEGATIVE (NEGATIVE); COCAINE SCREEN,URINE NEGATIVE (NEGATIVE); METHADONE SCREEN, URINE NEGATIVE (NEGATIVE); OPIATE SCREEN,URINE NEGATIVE (NEGATIVE)
[2020-01-20 00:32] LABS: PHENCYCLIDINE SCREEN,URINE NEGATIVE (NEGATIVE)
[2020-01-20] MEDS ORDERED: DiphenhydrAMINE HCL 25 MG CAPSULE PO ONE (02:45)
[2020-01-20] MEDS ORDERED: HALOPERIDOL 5 MG TABLET PO ONE (02:45)
[2020-01-20 03:27] VITALS: BP 105/74
== END 2020-01-20 03:27 | disposition home or self-care (01) ==
LOC: EMS 19:15
DX: F25.9 Schizoaffective disorder, unspecified (principal); F15.90 Other stimulant use, unspecified, uncomplicated
CPT/HCPCS: 36415; 80053; 80307; 85025; 99285; G0480; 96375; 96376

== ENCOUNTER 2020-01-27 18:04 | Emergency (ER) | payer MEDICARE, OTHER ==
[~2020-01-27] VITALS: Ht 172.7 cm; Wt 79.5 kg
[2020-01-27] MEDS ORDERED: LORazepam 1 MG TABLET PO ONE (18:45)
[2020-01-27] MEDS ORDERED: PredniSONE 20 MG TABLET PO ONE (18:45)
[2020-01-27 19:50] VITALS: BP 112/80
== END 2020-01-27 19:53 | disposition home or self-care (01) ==
LOC: EMS 18:04
DX: J45.909 Unspecified asthma, uncomplicated (principal); F41.9 Anxiety disorder, unspecified; F31.9 Bipolar disorder, unspecified; K21.9 Gastro-esophageal reflux disease without esophagitis; F20.9 Schizophrenia, unspecified; F17.210 Nicotine dependence, cigarettes, uncomplicated; F19.90 Other psychoactive substance use, unspecified, uncomplicated
CPT/HCPCS: 71045; 99283; J7512

== ENCOUNTER 2020-02-29 12:36 | Emergency (ER) | payer MEDICARE, OTHER ==
[~2020-02-29] VITALS: Ht 180.3 cm; Wt 90.0 kg
[2020-02-29 13:55] LABS: BASOPHILS % (AUTO) 0.5 % (0.0-2.0); HEMOGLOBIN 15.4 g/dL (13.5-17.5); LYMPHOCYTES # (AUTO) 1.7 K/uL (1.0-4.8); LYMPHOCYTES % (AUTO) 13.2 % (22.0-44.0); MEAN CORPUSCULAR HEMOGLOBIN 30.5 pg (26.0-34.0); MEAN CORPUSCULAR HGB CONC 33.5 G/dL (31.0-37.0); MEAN CORPUSCULAR VOLUME 91 fL (80-100); MONOCYTES # (AUTO) 0.8 K/uL (0.1-1.0); MONOCYTES % (AUTO) 5.9 % (2.0-9.0); NEUTROPHILS # (AUTO) 10.3 K/uL (1.8-7.7); NEUTROPHILS % (AUTO) 79.4 % (40.0-70.0); PLATELET COUNT (AUTO) 299 K/uL (150-450); RED BLOOD CELL COUNT(AUTO) 5.05 MIL/uL (4.50-5.90); RED CELL DISTRIBUTION WIDTH 12.9 % (11.5-14.5)
[2020-02-29 14:13] LABS: ANION GAP 5 mmol/L (8-16); CALCIUM, TOTAL 8.9 mg/dL (8.8-10.5); CARBON DIOXIDE 27 mmol/L (22-29); CHLORIDE 109 mmol/L (98-107); CREATININE 0.86 mg/dL (0.60-1.30); GLOMERULAR FILTR. RATE CALC > 60 mL/min (>60); GLUCOSE,RANDOM 89 mg/dL (70-110); POTASSIUM 4.5 mmol/L (3.5-5.1); SODIUM SERUM 141 mmol/L (136-145); UREA NITROGEN, BLOOD 7 mg/dL (7-18)
[2020-02-29 14:19] LABS: ALANINE AMINOTRANSFERASE 22 U/L (12-78); ALBUMIN 3.6 g/dL (3.4-5.0); ALKALINE PHOSPHATASE 83 U/L (46-116); ASPARTATE AMINOTRANSFERASE 14 U/L (15-37); BILIRUBIN,TOTAL 0.3 mg/dL (0.1-1.0); TOTAL PROTEIN, SERUM 6.4 g/dL (6.4-8.2)
[2020-02-29 14:25] LABS: AMPHET/METH SCREEN,URINE POSITIVE (NEGATIVE); BARBITURATE SCREEN, URINE NEGATIVE (NEGATIVE); BENZODIAZEPINES SCREEN,URINE NEGATIVE (NEGATIVE); CANNABINOID SCREEN,URINE NEGATIVE (NEGATIVE); COCAINE SCREEN,URINE NEGATIVE (NEGATIVE); METHADONE SCREEN, URINE NEGATIVE (NEGATIVE); OPIATE SCREEN,URINE NEGATIVE (NEGATIVE)
[2020-02-29 14:26] LABS: PHENCYCLIDINE SCREEN,URINE NEGATIVE (NEGATIVE)
[2020-02-29 14:29] VITALS: BP 110/70
[2020-02-29] MEDS ORDERED: LORazepam 1 MG TABLET PO ONE (14:45)
[2020-02-29] MEDS ORDERED: OLANZapine 5 MG TABLET PO ONE (14:45)
== END 2020-02-29 15:16 | disposition home or self-care (01) ==
LOC: EMS 12:38
DX: R44.1 Visual hallucinations (principal); R44.0 Auditory hallucinations; F15.10 Other stimulant abuse, uncomplicated
CPT/HCPCS: 36415; 80053; 80307; 85025; 99284; G0480

== ENCOUNTER 2020-03-21 13:38 | Emergency (ER) | payer MEDICARE, OTHER ==
[~2020-03-21] VITALS: Ht 175.3 cm; Wt 84.1 kg
[2020-03-21 16:26] LABS: BASOPHILS % (AUTO) 0.3 % (0.0-2.0); EOSINOPHILS % (AUTO) 0.5 % (1.0-6.0); HEMATOCRIT 46.6 % (41-53); HEMOGLOBIN 16.1 g/dL (13.5-17.5); LYMPHOCYTES # (AUTO) 2.3 K/uL (1.0-4.8); LYMPHOCYTES % (AUTO) 13.8 % (22.0-44.0); MEAN CORPUSCULAR HEMOGLOBIN 31.1 pg (26.0-34.0); MEAN CORPUSCULAR HGB CONC 34.5 G/dL (31.0-37.0); MEAN CORPUSCULAR VOLUME 90 fL (80-100); MONOCYTES # (AUTO) 1.1 K/uL (0.1-1.0); MONOCYTES % (AUTO) 6.5 % (2.0-9.0); NEUTROPHILS # (AUTO) 12.9 K/uL (1.8-7.7); NEUTROPHILS % (AUTO) 78.9 % (40.0-70.0); PLATELET COUNT (AUTO) 378 K/uL (150-450); RED BLOOD CELL COUNT(AUTO) 5.18 MIL/uL (4.50-5.90)
[2020-03-21 16:38] LABS: ANION GAP 7 mmol/L (8-16); CARBON DIOXIDE 28 mmol/L (22-29); CHLORIDE 102 mmol/L (98-107); CREATININE 1.08 mg/dL (0.60-1.30); GLOMERULAR FILTR. RATE CALC > 60 mL/min (>60); GLUCOSE,RANDOM 121 mg/dL (70-110); POTASSIUM 3.8 mmol/L (3.5-5.1); SODIUM SERUM 137 mmol/L (136-145); UREA NITROGEN, BLOOD 10 mg/dL (7-18)
[2020-03-21 16:44] LABS: ALANINE AMINOTRANSFERASE 35 U/L (12-78); ALBUMIN 4.6 g/dL (3.4-5.0); ALKALINE PHOSPHATASE 112 U/L (46-116); ASPARTATE AMINOTRANSFERASE 17 U/L (15-37); BILIRUBIN,TOTAL 0.6 mg/dL (0.1-1.0)
[2020-03-21] MEDS ORDERED: LORazepam 2 MG TABLET PO ONE (17:00)
[2020-03-21 17:40] LABS: AMPHET/METH SCREEN,URINE POSITIVE (NEGATIVE); BARBITURATE SCREEN, URINE NEGATIVE (NEGATIVE); BENZODIAZEPINES SCREEN,URINE NEGATIVE (NEGATIVE); CANNABINOID SCREEN,URINE NEGATIVE (NEGATIVE); COCAINE SCREEN,URINE NEGATIVE (NEGATIVE); METHADONE SCREEN, URINE NEGATIVE (NEGATIVE); OPIATE SCREEN,URINE NEGATIVE (NEGATIVE)
[2020-03-21 17:46] LABS: PHENCYCLIDINE SCREEN,URINE NEGATIVE (NEGATIVE)
[2020-03-21 19:28] VITALS: BP 129/83
== END 2020-03-21 19:31 | disposition home or self-care (01) ==
LOC: EMS 13:38
DX: F15.159 Other stimulant abuse with stimulant-induced psychotic disorder, unspecified (principal); F17.210 Nicotine dependence, cigarettes, uncomplicated; F32.9 Major depressive disorder, single episode, unspecified; F25.9 Schizoaffective disorder, unspecified
CPT/HCPCS: 36415; 80053; 80307; 85025; 99283; G0480

== ENCOUNTER 2020-04-19 21:59 | Emergency (ER) | payer MEDICARE, OTHER ==
[~2020-04-19] VITALS: Ht 180.3 cm; Wt 88.6 kg
[2020-04-19] MEDS ORDERED: ALBU8HFA IH (22:46)
[2020-04-19] MEDS ORDERED: ATOR10TA84 PO (22:46)
[2020-04-19] MEDS ORDERED: OLAN10TA3 PO (22:46)
[2020-04-19] MEDS ORDERED: TRAZ-257 PO (22:46)
[2020-04-19] MEDS ORDERED: FLUT1BLS9 IH (22:46)
[2020-04-19 23:33] LABS: BASOPHILS % (AUTO) 0.5 % (0.0-2.0); EOSINOPHILS % (AUTO) 3.3 % (1.0-6.0); HEMATOCRIT 42.1 % (41-53); HEMOGLOBIN 14.2 g/dL (13.5-17.5); LYMPHOCYTES # (AUTO) 2.6 K/uL (1.0-4.8); LYMPHOCYTES % (AUTO) 22.8 % (22.0-44.0); MEAN CORPUSCULAR HEMOGLOBIN 30.7 pg (26.0-34.0); MEAN CORPUSCULAR HGB CONC 33.8 G/dL (31.0-37.0); MEAN CORPUSCULAR VOLUME 91 fL (80-100); MONOCYTES # (AUTO) 0.8 K/uL (0.1-1.0); NEUTROPHILS # (AUTO) 7.7 K/uL (1.8-7.7); NEUTROPHILS % (AUTO) 66.4 % (40.0-70.0); PLATELET COUNT (AUTO) 321 K/uL (150-450); RED BLOOD CELL COUNT(AUTO) 4.64 MIL/uL (4.50-5.90); RED CELL DISTRIBUTION WIDTH 13.2 % (11.5-14.5)
[2020-04-19 23:34] LABS: AMPHET/METH SCREEN,URINE POSITIVE (NEGATIVE); BARBITURATE SCREEN, URINE NEGATIVE (NEGATIVE); BENZODIAZEPINES SCREEN,URINE NEGATIVE (NEGATIVE); CANNABINOID SCREEN,URINE NEGATIVE (NEGATIVE); COCAINE SCREEN,URINE NEGATIVE (NEGATIVE); METHADONE SCREEN, URINE NEGATIVE (NEGATIVE); OPIATE SCREEN,URINE NEGATIVE (NEGATIVE)
[2020-04-20] LABS: ALANINE AMINOTRANSFERASE 28 U/L (12-78); ALKALINE PHOSPHATASE 104 U/L (46-116); ANION GAP 8 mmol/L (8-16); ASPARTATE AMINOTRANSFERASE 17 U/L (15-37); BILIRUBIN,TOTAL 0.3 mg/dL (0.1-1.0); CALCIUM, TOTAL 9.5 mg/dL (8.8-10.5); CARBON DIOXIDE 27 mmol/L (22-29); CHLORIDE 102 mmol/L (98-107); CREATININE 0.82 mg/dL (0.60-1.30); GLOMERULAR FILTR. RATE CALC > 60 mL/min (>60); GLUCOSE,RANDOM 117 mg/dL (70-110); POTASSIUM 4.4 mmol/L (3.5-5.1); SODIUM SERUM 137 mmol/L (136-145); TOTAL PROTEIN, SERUM 7.2 g/dL (6.4-8.2); UREA NITROGEN, BLOOD 9 mg/dL (7-18)
[2020-04-20 00:05] LABS: PHENCYCLIDINE SCREEN,URINE NEGATIVE (NEGATIVE)
[2020-04-20 00:50] VITALS: BP 119/79
== END 2020-04-20 01:17 | disposition home or self-care (01) ==
LOC: EMS 21:59
DX: F22 Delusional disorders (principal); F15.10 Other stimulant abuse, uncomplicated; F41.9 Anxiety disorder, unspecified; F17.210 Nicotine dependence, cigarettes, uncomplicated; J45.909 Unspecified asthma, uncomplicated; F31.9 Bipolar disorder, unspecified
CPT/HCPCS: 36415; 80053; 80307; 85025; 99284; G0480

== ENCOUNTER 2020-05-01 21:08 | Emergency (ER) | payer MEDICARE, OTHER ==
[~2020-05-01] VITALS: Ht 180.3 cm; Wt 86.4 kg
[~2020-05-01 21:08] MED LIST changes: +ALBU8HFA IH; +ATOR10TA84 PO; +FLUT1BLS9 IH
[2020-05-01 22:44] VITALS: BP 134/85
== END 2020-05-01 23:24 | disposition home or self-care (01) ==
LOC: EMS 21:08
DX: F15.10 Other stimulant abuse, uncomplicated (principal); F41.9 Anxiety disorder, unspecified; F31.9 Bipolar disorder, unspecified; J45.909 Unspecified asthma, uncomplicated; F20.9 Schizophrenia, unspecified; K21.9 Gastro-esophageal reflux disease without esophagitis; F17.210 Nicotine dependence, cigarettes, uncomplicated

== ENCOUNTER 2020-05-04 17:26 | Emergency (ER) | payer MEDICARE, OTHER ==
[~2020-05-04] VITALS: Ht 180.3 cm; Wt 72.7 kg
[2020-05-04 17:45] VITALS: BP 136/82
== END 2020-05-04 17:55 | disposition home or self-care (01) ==
LOC: EMS 17:28
DX: F41.9 Anxiety disorder, unspecified (principal); F15.10 Other stimulant abuse, uncomplicated; F31.9 Bipolar disorder, unspecified; F20.9 Schizophrenia, unspecified; F17.210 Nicotine dependence, cigarettes, uncomplicated; Z79.899 Other long term (current) drug therapy
CPT/HCPCS: 99283; Z7502

== ENCOUNTER 2020-05-06 20:10 | Emergency (ER) | payer MEDICARE, OTHER ==
[~2020-05-06] VITALS: Ht 180.3 cm; Wt 81.8 kg
[2020-05-06] MEDS ORDERED: OLANZapine 5 MG TABLET PO ONE (23:45)
[2020-05-07] MEDS ORDERED: DiphenhydrAMINE HCL 25 MG CAPSULE PO ONE (01:45)
[2020-05-07] MEDS ORDERED: HALOPERIDOL 5 MG TABLET PO ONE (01:45)
[2020-05-07 02:00] VITALS: BP 126/68
== END 2020-05-07 05:01 | disposition home or self-care (01) ==
LOC: EMS 20:13
DX: F20.9 Schizophrenia, unspecified (principal); F41.9 Anxiety disorder, unspecified; F31.9 Bipolar disorder, unspecified; J45.909 Unspecified asthma, uncomplicated; K21.9 Gastro-esophageal reflux disease without esophagitis; F17.210 Nicotine dependence, cigarettes, uncomplicated; F19.90 Other psychoactive substance use, unspecified, uncomplicated; Z91.14 Patient's other noncompliance with medication regimen
CPT/HCPCS: Z7502; Z7610

== ENCOUNTER 2020-05-18 18:24 | Emergency (ER) | payer MEDICARE, OTHER ==
[~2020-05-18] VITALS: Ht 180.3 cm; Wt 86.4 kg
[2020-05-18 19:12] LABS: BASOPHILS % (AUTO) 0.3 % (0.0-2.0); EOSINOPHILS % (AUTO) 1.4 % (1.0-6.0); HEMATOCRIT 45.7 % (41-53); HEMOGLOBIN 15.2 g/dL (13.5-17.5); LYMPHOCYTES # (AUTO) 1.6 K/uL (1.0-4.8); LYMPHOCYTES % (AUTO) 10.9 % (22.0-44.0); MEAN CORPUSCULAR HEMOGLOBIN 30.2 pg (26.0-34.0); MEAN CORPUSCULAR HGB CONC 33.3 G/dL (31.0-37.0); MEAN CORPUSCULAR VOLUME 91 fL (80-100); MONOCYTES # (AUTO) 0.8 K/uL (0.1-1.0); MONOCYTES % (AUTO) 5.1 % (2.0-9.0); NEUTROPHILS # (AUTO) 12.3 K/uL (1.8-7.7); NEUTROPHILS % (AUTO) 82.3 % (40.0-70.0); PLATELET COUNT (AUTO) 370 K/uL (150-450); RED BLOOD CELL COUNT(AUTO) 5.05 MIL/uL (4.50-5.90)
[2020-05-18 19:20] LABS: ANION GAP 10 mmol/L (8-16); CALCIUM, TOTAL 9.2 mg/dL (8.8-10.5); CARBON DIOXIDE 23 mmol/L (22-29); CHLORIDE 103 mmol/L (98-107); CREATININE 1.19 mg/dL (0.60-1.30); GLOMERULAR FILTR. RATE CALC > 60 mL/min (>60); GLUCOSE,RANDOM 115 mg/dL (70-110); POTASSIUM 3.8 mmol/L (3.5-5.1); SODIUM SERUM 136 mmol/L (136-145); UREA NITROGEN, BLOOD 11 mg/dL (7-18)
[2020-05-18 19:26] LABS: ALANINE AMINOTRANSFERASE 24 U/L (12-78); ALBUMIN 4.1 g/dL (3.4-5.0); ALKALINE PHOSPHATASE 105 U/L (46-116); ASPARTATE AMINOTRANSFERASE 12 U/L (15-37); BILIRUBIN,TOTAL 0.3 mg/dL (0.1-1.0); TOTAL PROTEIN, SERUM 7.3 g/dL (6.4-8.2)
[2020-05-18] MEDS ORDERED: LORazepam 0.5 MG TABLET PO ONE (19:45)
[2020-05-18] MEDS ORDERED: OLANZapine 5 MG TABLET PO ONE (19:45)
[2020-05-18 20:16] LABS: AMPHET/METH SCREEN,URINE NEGATIVE (NEGATIVE); BARBITURATE SCREEN, URINE NEGATIVE (NEGATIVE); BENZODIAZEPINES SCREEN,URINE NEGATIVE (NEGATIVE); CANNABINOID SCREEN,URINE NEGATIVE (NEGATIVE); COCAINE SCREEN,URINE NEGATIVE (NEGATIVE); METHADONE SCREEN, URINE NEGATIVE (NEGATIVE); OPIATE SCREEN,URINE NEGATIVE (NEGATIVE)
[2020-05-18 20:26] VITALS: BP 124/65
[2020-05-18 20:26] LABS: PHENCYCLIDINE SCREEN,URINE NEGATIVE (NEGATIVE)
== END 2020-05-18 20:33 | disposition home or self-care (01) ==
LOC: EMS 18:30
DX: F20.9 Schizophrenia, unspecified (principal); F41.9 Anxiety disorder, unspecified; F15.10 Other stimulant abuse, uncomplicated; F17.210 Nicotine dependence, cigarettes, uncomplicated
CPT/HCPCS: 36415; 80053; 80307; 85025; 99284; G0480

== ENCOUNTER 2020-05-30 17:37 | Emergency (ER) | payer MEDICARE, OTHER ==
[~2020-05-30] VITALS: Ht 182.9 cm; Wt 79.5 kg
[2020-05-30 18:15] VITALS: BP 136/90
[2020-05-30] MEDS ORDERED: LORazepam 1 MG TABLET PO ONE (18:45)
[2020-05-30] MEDS ORDERED: OLANZapine 5 MG TABLET PO ONE (18:45)
== END 2020-05-30 19:15 | disposition home or self-care (01) ==
LOC: EMS 17:42
DX: F25.9 Schizoaffective disorder, unspecified (principal); F15.10 Other stimulant abuse, uncomplicated; F31.9 Bipolar disorder, unspecified; F41.9 Anxiety disorder, unspecified; J44.9 Chronic obstructive pulmonary disease, unspecified; K21.9 Gastro-esophageal reflux disease without esophagitis; F17.210 Nicotine dependence, cigarettes, uncomplicated; Z79.899 Other long term (current) drug therapy
CPT/HCPCS: Z7502; Z7610

== ENCOUNTER 2020-06-22 06:49 | Emergency (ER) | payer MEDICARE, OTHER ==
[~2020-06-22] VITALS: Ht 180.3 cm; Wt 84.1 kg
[2020-06-22] MEDS ORDERED: LORazepam 1 MG TABLET PO ONE (07:30)
[2020-06-22] MEDS ORDERED: HALOPERIDOL 5 MG TABLET PO ONE (07:30)
[2020-06-22 09:38] VITALS: BP 142/64
== END 2020-06-22 10:31 | disposition home or self-care (01) ==
LOC: EMS 06:50
DX: F19.951 Other psychoactive substance use, unspecified with psychoactive substance-induced psychotic disorder with hallucinations (principal); F41.9 Anxiety disorder, unspecified; F31.9 Bipolar disorder, unspecified; J45.909 Unspecified asthma, uncomplicated; K21.9 Gastro-esophageal reflux disease without esophagitis; F17.210 Nicotine dependence, cigarettes, uncomplicated; F19.90 Other psychoactive substance use, unspecified, uncomplicated
CPT/HCPCS: 99284; Z7502; Z7610

== ENCOUNTER 2020-06-24 10:52 | Emergency (ER) | payer MEDICARE, OTHER ==
[~2020-06-24] VITALS: Ht 180.3 cm; Wt 84.1 kg
[2020-06-24 13:20] VITALS: BP 110/70
[2020-06-24] MEDS ORDERED: LORazepam 1 MG TABLET PO ONE (13:30)
[2020-06-24] MEDS ORDERED: HALOPERIDOL 5 MG TABLET PO ONE (13:30)
== END 2020-06-24 13:45 | disposition short-term general hospital (02) ==
LOC: EMS 10:52
DX: F41.9 Anxiety disorder, unspecified (principal); F31.9 Bipolar disorder, unspecified; F20.9 Schizophrenia, unspecified; F15.10 Other stimulant abuse, uncomplicated; J45.909 Unspecified asthma, uncomplicated; F17.210 Nicotine dependence, cigarettes, uncomplicated; K21.9 Gastro-esophageal reflux disease without esophagitis; Z79.899 Other long term (current) drug therapy
CPT/HCPCS: 99283

== ENCOUNTER 2020-06-27 15:57 | Emergency (ER) | payer MEDICARE, OTHER ==
[~2020-06-27] VITALS: Ht 175.3 cm; Wt 75.0 kg
[2020-06-27 17:51] LABS: AMPHET/METH SCREEN,URINE POSITIVE (NEGATIVE); BARBITURATE SCREEN, URINE NEGATIVE (NEGATIVE); BENZODIAZEPINES SCREEN,URINE NEGATIVE (NEGATIVE); CANNABINOID SCREEN,URINE NEGATIVE (NEGATIVE); COCAINE SCREEN,URINE NEGATIVE (NEGATIVE); METHADONE SCREEN, URINE NEGATIVE (NEGATIVE); OPIATE SCREEN,URINE NEGATIVE (NEGATIVE); PHENCYCLIDINE SCREEN,URINE NEGATIVE (NEGATIVE)
[2020-06-27 17:58] LABS: BASOPHILS % (AUTO) 0.9 % (0.0-2.0); EOSINOPHILS % (AUTO) 3.8 % (1.0-6.0); HEMOGLOBIN 14.9 g/dL (13.5-17.5); LYMPHOCYTES # (AUTO) 2.6 K/uL (1.0-4.8); LYMPHOCYTES % (AUTO) 21.7 % (22.0-44.0); MEAN CORPUSCULAR HEMOGLOBIN 30.1 pg (26.0-34.0); MEAN CORPUSCULAR HGB CONC 33.1 G/dL (31.0-37.0); MEAN CORPUSCULAR VOLUME 91 fL (80-100); MONOCYTES # (AUTO) 0.7 K/uL (0.1-1.0); NEUTROPHILS % (AUTO) 67.6 % (40.0-70.0); PLATELET COUNT (AUTO) 333 K/uL (150-450); RED BLOOD CELL COUNT(AUTO) 4.94 MIL/uL (4.50-5.90); RED CELL DISTRIBUTION WIDTH 13.1 % (11.5-14.5)
[2020-06-27 18:09] LABS: ANION GAP 9 mmol/L (8-16); CALCIUM, TOTAL 9.5 mg/dL (8.8-10.5); CARBON DIOXIDE 28 mmol/L (22-29); CHLORIDE 102 mmol/L (98-107); CREATININE 1.02 mg/dL (0.60-1.30); GLOMERULAR FILTR. RATE CALC > 60 mL/min (>60); GLUCOSE,RANDOM 91 mg/dL (70-110); POTASSIUM 4.1 mmol/L (3.5-5.1); SODIUM SERUM 139 mmol/L (136-145); UREA NITROGEN, BLOOD 7 mg/dL (7-18)
[2020-06-27] MEDS ORDERED: LORazepam 1 MG TABLET PO ONE (18:15)
[2020-06-27] MEDS ORDERED: HALOPERIDOL 5 MG TABLET PO ONE (18:15)
[2020-06-27 18:16] LABS: ALANINE AMINOTRANSFERASE 21 U/L (12-78); ALBUMIN 4.1 g/dL (3.4-5.0); ALKALINE PHOSPHATASE 112 U/L (46-116); ASPARTATE AMINOTRANSFERASE 10 U/L (15-37); BILIRUBIN,TOTAL 0.2 mg/dL (0.1-1.0); TOTAL PROTEIN, SERUM 7.1 g/dL (6.4-8.2)
[2020-06-27 19:46] VITALS: BP 110/78
== END 2020-06-27 20:16 | disposition home or self-care (01) ==
LOC: EMS 15:59
DX: R45.851 Suicidal ideations (principal); F41.9 Anxiety disorder, unspecified; F32.9 Major depressive disorder, single episode, unspecified; F20.9 Schizophrenia, unspecified; J44.9 Chronic obstructive pulmonary disease, unspecified; K21.9 Gastro-esophageal reflux disease without esophagitis; F15.90 Other stimulant use, unspecified, uncomplicated; F17.210 Nicotine dependence, cigarettes, uncomplicated; Z79.899 Other long term (current) drug therapy
CPT/HCPCS: 80053; 80307; 85025; 99284; G0480

== ENCOUNTER 2020-06-28 17:53 | Inpatient (IN) | payer MEDICARE, MEDICAID ==
[~2020-06-28] VITALS: Ht 180.3 cm; Wt 87.3 kg
[2020-06-28] MEDS ORDERED: OLANZapine 5 MG TABLET PO ONE (19:45)
[2020-06-28] MEDS ORDERED: LORazepam 1 MG TABLET PO ONE (19:45)
[2020-06-28 19:59] LABS: BASOPHILS % (AUTO) 0.4 % (0.0-2.0); EOSINOPHILS % (AUTO) 2.7 % (1.0-6.0); HEMATOCRIT 44.5 % (41-53); HEMOGLOBIN 14.8 g/dL (13.5-17.5); LYMPHOCYTES # (AUTO) 4.2 K/uL (1.0-4.8); LYMPHOCYTES % (AUTO) 25.1 % (22.0-44.0); MEAN CORPUSCULAR HEMOGLOBIN 30.2 pg (26.0-34.0); MEAN CORPUSCULAR HGB CONC 33.1 G/dL (31.0-37.0); MEAN CORPUSCULAR VOLUME 91 fL (80-100); MONOCYTES # (AUTO) 1.1 K/uL (0.1-1.0); MONOCYTES % (AUTO) 6.5 % (2.0-9.0); NEUTROPHILS # (AUTO) 10.9 K/uL (1.8-7.7); NEUTROPHILS % (AUTO) 65.3 % (40.0-70.0); PLATELET COUNT (AUTO) 338 K/uL (150-450); RED BLOOD CELL COUNT(AUTO) 4.89 MIL/uL (4.50-5.90); RED CELL DISTRIBUTION WIDTH 13.2 % (11.5-14.5)
[2020-06-28 20:12] LABS: ANION GAP 10 mmol/L (8-16); CALCIUM, TOTAL 8.9 mg/dL (8.8-10.5); CARBON DIOXIDE 25 mmol/L (22-29); CHLORIDE 100 mmol/L (98-107); CREATININE 1.17 mg/dL (0.60-1.30); GLOMERULAR FILTR. RATE CALC > 60 mL/min (>60); GLUCOSE,RANDOM 147 mg/dL (70-110); POTASSIUM 3.7 mmol/L (3.5-5.1); SODIUM SERUM 135 mmol/L (136-145); UREA NITROGEN, BLOOD 12 mg/dL (7-18)
[2020-06-28 20:19] LABS: ALANINE AMINOTRANSFERASE 20 U/L (12-78); ALBUMIN 3.7 g/dL (3.4-5.0); ALKALINE PHOSPHATASE 97 U/L (46-116); ASPARTATE AMINOTRANSFERASE 9 U/L (15-37); BILIRUBIN,TOTAL 0.2 mg/dL (0.1-1.0); TOTAL PROTEIN, SERUM 6.8 g/dL (6.4-8.2)
[2020-06-28 21:52] LABS: COVID AG,FIA SOURCE NASOPHARYNGEAL
[2020-06-29 02:12] VITALS: BP 118/79
[2020-06-29] MEDS ORDERED: INFLUENZA VIRUS VACCINE QVS 2020-21 (6MO+)/PF 60 MCG/0.5 ML SYRINGE IM ONE (03:15)
[2020-06-29] MEDS ORDERED: -PHARMACY VACCINE NOTE- MISC ONE (03:15)
[2020-06-29 08:13] VITALS: BP 100/59
[2020-06-29] MEDS ORDERED: ONDANSETRON HCL 4 MG TABLET PO PRN (09:00)
[2020-06-29] MEDS ORDERED: CloNIDine HCL 0.1 MG TABLET PO PRN (09:00)
[2020-06-29] MEDS ORDERED: LOPERAMIDE HCL 2 MG CAPSULE PO PRN (09:00)
[2020-06-29] MEDS ORDERED: DOCUSATE SODIUM 100 MG CAPSULE PO PRN (09:00)
[2020-06-29] MEDS ORDERED: ACETAMINOPHEN 325 MG TABLET PO PRN (09:00)
[2020-06-29] MEDS ORDERED: BACITRACIN 28 GM OINTMENT TP PRN (09:00)
[2020-06-29] MEDS ORDERED: MAG HYDROX/AL HYDROX/SIMETH ES 30 ML SUSPENSION UDCUP PO PRN (09:00)
[2020-06-29] MEDS ORDERED: OMEPRAZOLE 20 MG CAPSULE PO PRN (09:00)
[2020-06-29] MEDS ORDERED: MAGNESIUM HYDROXIDE SUSPENSION 30 ML UDCUP PO PRN (09:00)
[2020-06-29] MEDS ORDERED: PETROLATUM,WHITE 28 GM JELLY TP PRN (09:00)
[2020-06-29] MEDS ORDERED: BENZOCAINE/MENTHOL LOZENGE PO PRN (09:00)
[2020-06-29] MEDS ORDERED: IBUPROFEN 600 MG TABLET PO PRN (09:00)
[2020-06-29] MEDS: FLUTICASONE/VILANTEROL 200-25 MCG/INH INHALER [14] IH SCH (10:04)
[2020-06-29] MEDS: ALBUTEROL SULFATE HFA 90 MCG/PUFF 8 GM INHALER IH PRN (13:10)
[2020-06-29 15:05] VITALS: BP 100/65
[2020-06-29 19:02] VITALS: BP 100/64
[2020-06-29] MEDS: ZOLPIDEM TARTRATE 10 MG TABLET PO PRN (20:18)
[2020-06-29] MEDS: LORazepam 2 MG TABLET PO PRN (20:18)
[2020-06-29] MEDS: ATORVASTATIN CALCIUM 10 MG TABLET PO SCH (20:18)
[2020-06-30 05:14] VITALS: BP 110/70
[2020-06-30 08:35] VITALS: BP 101/68
[2020-06-30 08:36] LABS: CHOL/HDL RATIO 4.4 (4.2-7.3)
[2020-06-30] MEDS: FLUTICASONE/VILANTEROL 200-25 MCG/INH INHALER [14] IH SCH (09:00)
[2020-06-30] MEDS: NICOTINE 21 MG/24 HOUR PATCH TD SCH (10:22)
[2020-06-30] MEDS: LORazepam 2 MG TABLET PO PRN (12:18)
[2020-06-30 16:26] VITALS: BP 110/61
[2020-06-30] MEDS: ATORVASTATIN CALCIUM 10 MG TABLET PO SCH (20:10)
[2020-06-30] MEDS: ZOLPIDEM TARTRATE 10 MG TABLET PO PRN (20:30)
[2020-06-30] MEDS: HALOPERIDOL 5 MG TABLET PO PRN (20:31)
[2020-07-01 06:27] VITALS: BP 106/59
[2020-07-01] MEDS: NICOTINE 21 MG/24 HOUR PATCH TD SCH (08:34)
[2020-07-01] MEDS: LORazepam 2 MG TABLET PO PRN ×2 (08:35→18:36)
[2020-07-01 08:41] VITALS: BP 103/94
[2020-07-01] MEDS: FLUTICASONE/VILANTEROL 200-25 MCG/INH INHALER [14] IH SCH (09:00)
[2020-07-01 16:40] VITALS: BP 115/78
[2020-07-01] MEDS: HALOPERIDOL 5 MG TABLET PO PRN (18:35)
[2020-07-01] MEDS: ALBUTEROL SULFATE HFA 90 MCG/PUFF 8 GM INHALER IH PRN (18:47)
[2020-07-01] MEDS: ZOLPIDEM TARTRATE 10 MG TABLET PO PRN (20:26)
[2020-07-01] MEDS: ATORVASTATIN CALCIUM 10 MG TABLET PO SCH (20:26)
[2020-07-01] MEDS ORDERED: TraZODone HCL 100 MG TABLET PO SCH (21:00)
[2020-07-01] MEDS ORDERED: OLANZapine 10 MG TABLET PO SCH (21:00)
[2020-07-02 06:13] VITALS: BP 122/81
[2020-07-02 08:47] VITALS: BP 103/66
[2020-07-02] MEDS: NICOTINE 21 MG/24 HOUR PATCH TD SCH (09:03)
[2020-07-02] MEDS: FLUTICASONE/VILANTEROL 200-25 MCG/INH INHALER [14] IH SCH (09:03)
[2020-07-02] MEDS ORDERED: OLAN10TA3 PO (12:38)
== END 2020-07-02 15:00 | disposition home or self-care (01) | DRG 885 ==
LOC: EMS 17:53 → B3A 22:37
PROVIDERS: ADMIT Psychiatry & Neurology Psychiatry; ATTEND Psychiatry & Neurology Psychiatry
DX: F25.9 Schizoaffective disorder, unspecified (principal); R45.851 Suicidal ideations; F41.9 Anxiety disorder, unspecified; F17.210 Nicotine dependence, cigarettes, uncomplicated; J44.9 Chronic obstructive pulmonary disease, unspecified; K21.9 Gastro-esophageal reflux disease without esophagitis; E55.9 Vitamin D deficiency, unspecified; K59.00 Constipation, unspecified; F15.10 Other stimulant abuse, uncomplicated; Z59.0 Homelessness; Z20.822 Contact with and (suspected) exposure to COVID-19
CPT/HCPCS: 87426; 99285; A9575; G0480; J3535

== ENCOUNTER 2020-07-06 13:35 | Emergency (ER) | payer MEDICARE, OTHER ==
[~2020-07-06] VITALS: Ht 180.3 cm; Wt 75.0 kg
[~2020-07-06 13:35] MED LIST changes: -ALBU8HFA IH; -FLUT1BLS9 IH
[2020-07-06] MEDS ORDERED: HALOPERIDOL 5 MG TABLET PO ONE (14:15)
[2020-07-06] MEDS ORDERED: LORazepam 1 MG TABLET PO ONE (14:15)
[2020-07-06 14:59] LABS: BASOPHILS % (AUTO) 0.4 % (0.0-2.0); EOSINOPHILS % (AUTO) 2.9 % (1.0-6.0); HEMATOCRIT 46.7 % (41-53); HEMOGLOBIN 15.8 g/dL (13.5-17.5); LYMPHOCYTES # (AUTO) 2.4 K/uL (1.0-4.8); LYMPHOCYTES % (AUTO) 17.1 % (22.0-44.0); MEAN CORPUSCULAR HEMOGLOBIN 30.6 pg (26.0-34.0); MEAN CORPUSCULAR HGB CONC 33.9 G/dL (31.0-37.0); MEAN CORPUSCULAR VOLUME 90 fL (80-100); MONOCYTES % (AUTO) 7.3 % (2.0-9.0); NEUTROPHILS # (AUTO) 10.2 K/uL (1.8-7.7); NEUTROPHILS % (AUTO) 72.3 % (40.0-70.0); PLATELET COUNT (AUTO) 353 K/uL (150-450); RED BLOOD CELL COUNT(AUTO) 5.17 MIL/uL (4.50-5.90)
[2020-07-06 15:47] LABS: ALANINE AMINOTRANSFERASE 23 U/L (12-78); ALBUMIN 4.6 g/dL (3.4-5.0); ALKALINE PHOSPHATASE 126 U/L (46-116); ANION GAP 11 mmol/L (8-16); ASPARTATE AMINOTRANSFERASE 16 U/L (15-37); BILIRUBIN,TOTAL 0.5 mg/dL (0.1-1.0); CALCIUM, TOTAL 9.9 mg/dL (8.8-10.5); CARBON DIOXIDE 25 mmol/L (22-29); CHLORIDE 102 mmol/L (98-107); CREATININE 0.99 mg/dL (0.60-1.30); GLOMERULAR FILTR. RATE CALC > 60 mL/min (>60); GLUCOSE,RANDOM 123 mg/dL (70-110); POTASSIUM 4.5 mmol/L (3.5-5.1); SODIUM SERUM 138 mmol/L (136-145); TOTAL PROTEIN, SERUM 8.3 g/dL (6.4-8.2); UREA NITROGEN, BLOOD 11 mg/dL (7-18)
[2020-07-06 15:50] VITALS: BP 127/80
== END 2020-07-06 17:47 | disposition home or self-care (01) ==
LOC: EMS 13:35
DX: F25.9 Schizoaffective disorder, unspecified (principal); F15.10 Other stimulant abuse, uncomplicated; F17.210 Nicotine dependence, cigarettes, uncomplicated; Z79.899 Other long term (current) drug therapy
CPT/HCPCS: 36415; 80053; 85025; 99284; G0480

== ENCOUNTER 2020-07-24 00:44 | Emergency (ER) | payer MEDICARE, OTHER ==
[~2020-07-24] VITALS: Ht 175.3 cm; Wt 84.1 kg
[2020-07-24 00:56] VITALS: BP 149/97
[2020-07-24] MEDS ORDERED: HALOPERIDOL 5 MG TABLET PO ONE (01:15)
== END 2020-07-24 02:13 | disposition home or self-care (01) ==
LOC: EMS 00:46
DX: F25.9 Schizoaffective disorder, unspecified (principal); F15.10 Other stimulant abuse, uncomplicated
CPT/HCPCS: 99284; Z7502; Z7610

== ENCOUNTER 2020-07-28 18:07 | Emergency (ER) | payer MEDICARE, OTHER ==
[~2020-07-28] VITALS: Ht 180.3 cm; Wt 81.8 kg
[2020-07-28] MEDS ORDERED: LORazepam 1 MG TABLET PO ONE (18:30)
[2020-07-28] MEDS ORDERED: HALOPERIDOL 5 MG TABLET PO ONE (18:30)
[2020-07-28 19:23] LABS: ANION GAP 16 mmol/L (8-16); CALCIUM, TOTAL 8.6 mg/dL (8.8-10.5); CARBON DIOXIDE 20 mmol/L (22-29); CHLORIDE 105 mmol/L (98-107); CREATININE 0.95 mg/dL (0.60-1.30); GLOMERULAR FILTR. RATE CALC > 60 mL/min (>60); GLUCOSE,RANDOM 172 mg/dL (70-110); POTASSIUM 3.6 mmol/L (3.5-5.1); SODIUM SERUM 141 mmol/L (136-145); UREA NITROGEN, BLOOD 10 mg/dL (7-18)
[2020-07-28 19:28] LABS: ALANINE AMINOTRANSFERASE 26 U/L (12-78); ALBUMIN 3.7 g/dL (3.4-5.0); ALKALINE PHOSPHATASE 97 U/L (46-116); ASPARTATE AMINOTRANSFERASE 15 U/L (15-37); BILIRUBIN,TOTAL 0.1 mg/dL (0.1-1.0)
[2020-07-28 19:30] LABS: BASOPHILS % (AUTO) 0.5 % (0.0-2.0); EOSINOPHILS % (AUTO) 2.5 % (1.0-6.0); HEMATOCRIT 42.8 % (41-53); HEMOGLOBIN 14.4 g/dL (13.5-17.5); LYMPHOCYTES # (AUTO) 3.4 K/uL (1.0-4.8); LYMPHOCYTES % (AUTO) 23.8 % (22.0-44.0); MEAN CORPUSCULAR HEMOGLOBIN 30.5 pg (26.0-34.0); MEAN CORPUSCULAR HGB CONC 33.6 G/dL (31.0-37.0); MEAN CORPUSCULAR VOLUME 91 fL (80-100); MONOCYTES # (AUTO) 0.7 K/uL (0.1-1.0); MONOCYTES % (AUTO) 4.9 % (2.0-9.0); NEUTROPHILS # (AUTO) 9.7 K/uL (1.8-7.7); NEUTROPHILS % (AUTO) 68.3 % (40.0-70.0); PLATELET COUNT (AUTO) 328 K/uL (150-450); RED BLOOD CELL COUNT(AUTO) 4.72 MIL/uL (4.50-5.90); RED CELL DISTRIBUTION WIDTH 13.2 % (11.5-14.5)
[2020-07-28 19:32] LABS: AMPHET/METH SCREEN,URINE POSITIVE (NEGATIVE); BARBITURATE SCREEN, URINE NEGATIVE (NEGATIVE); BENZODIAZEPINES SCREEN,URINE NEGATIVE (NEGATIVE); CANNABINOID SCREEN,URINE NEGATIVE (NEGATIVE); COCAINE SCREEN,URINE NEGATIVE (NEGATIVE); METHADONE SCREEN, URINE NEGATIVE (NEGATIVE); OPIATE SCREEN,URINE NEGATIVE (NEGATIVE)
[2020-07-28 19:33] LABS: PHENCYCLIDINE SCREEN,URINE NEGATIVE (NEGATIVE)
[2020-07-28 20:00] VITALS: BP 125/85
== END 2020-07-28 20:00 | disposition home or self-care (01) ==
LOC: EMS 18:07
DX: F24 Shared psychotic disorder (principal); F17.210 Nicotine dependence, cigarettes, uncomplicated; F31.9 Bipolar disorder, unspecified; F20.9 Schizophrenia, unspecified
CPT/HCPCS: 36415; 80053; 80307; 85025; 99283; G0480

== ENCOUNTER 2020-07-31 11:32 | Emergency (ER) | payer MEDICARE, OTHER ==
[~2020-07-31] VITALS: Ht 185.4 cm; Wt 88.6 kg
[2020-07-31] MEDS ORDERED: LORazepam 2 MG TABLET PO ONE (12:30)
[2020-07-31 13:13] LABS: BASOPHILS % (AUTO) 0.2 % (0.0-2.0); EOSINOPHILS % (AUTO) 1.4 % (1.0-6.0); HEMATOCRIT 44.1 % (41-53); HEMOGLOBIN 14.8 g/dL (13.5-17.5); LYMPHOCYTES # (AUTO) 1.9 K/uL (1.0-4.8); LYMPHOCYTES % (AUTO) 14.3 % (22.0-44.0); MEAN CORPUSCULAR HEMOGLOBIN 30.2 pg (26.0-34.0); MEAN CORPUSCULAR HGB CONC 33.5 G/dL (31.0-37.0); MEAN CORPUSCULAR VOLUME 90 fL (80-100); MONOCYTES # (AUTO) 0.8 K/uL (0.1-1.0); MONOCYTES % (AUTO) 5.9 % (2.0-9.0); NEUTROPHILS # (AUTO) 10.6 K/uL (1.8-7.7); NEUTROPHILS % (AUTO) 78.2 % (40.0-70.0); PLATELET COUNT (AUTO) 344 K/uL (150-450); RED BLOOD CELL COUNT(AUTO) 4.89 MIL/uL (4.50-5.90); RED CELL DISTRIBUTION WIDTH 13.5 % (11.5-14.5)
[2020-07-31 13:19] VITALS: BP 117/76
[2020-07-31 13:36] LABS: CHLORIDE 103 mmol/L (98-107); GLUCOSE,RANDOM 94 mg/dL (70-110); POTASSIUM 4.5 mmol/L (3.5-5.1); SODIUM SERUM 141 mmol/L (136-145)
[2020-07-31 13:37] LABS: CALCIUM, TOTAL 9.6 mg/dL (8.8-10.5)
[2020-07-31 13:45] LABS: ALANINE AMINOTRANSFERASE 24 U/L (12-78); ALBUMIN 4.3 g/dL (3.4-5.0); ALKALINE PHOSPHATASE 99 U/L (46-116); ASPARTATE AMINOTRANSFERASE 11 U/L (15-37); BILIRUBIN,TOTAL 0.4 mg/dL (0.1-1.0); TOTAL PROTEIN, SERUM 7.8 g/dL (6.4-8.2)
[2020-07-31 13:59] LABS: ANION GAP 11 mmol/L (8-16); CARBON DIOXIDE 27 mmol/L (22-29); CREATININE 0.96 mg/dL (0.60-1.30); GLOMERULAR FILTR. RATE CALC > 60 mL/min (>60); UREA NITROGEN, BLOOD 9 mg/dL (7-18)
== END 2020-07-31 15:07 | disposition home or self-care (01) ==
LOC: EMS 12:00
DX: F41.9 Anxiety disorder, unspecified (principal); F15.90 Other stimulant use, unspecified, uncomplicated; J44.9 Chronic obstructive pulmonary disease, unspecified; F17.210 Nicotine dependence, cigarettes, uncomplicated; F32.9 Major depressive disorder, single episode, unspecified; Z79.899 Other long term (current) drug therapy
CPT/HCPCS: 80053; 85025; 99283; G0480

== ENCOUNTER 2020-08-10 17:37 | Emergency (ER) | payer MEDICARE, OTHER ==
[~2020-08-10] VITALS: Ht 180.3 cm; Wt 86.4 kg
[~2020-08-10 17:37] MED LIST changes: +ALBU8HFA IH; -ATOR10TA84 PO
[2020-08-10] MEDS ORDERED: HALOPERIDOL 5 MG TABLET PO ONE (18:00)
[2020-08-10] MEDS ORDERED: LORazepam 1 MG TABLET PO ONE (18:00)
[2020-08-10 19:47] VITALS: BP 126/78
== END 2020-08-10 20:01 | disposition home or self-care (01) ==
LOC: EMS 17:37
DX: F24 Shared psychotic disorder (principal); F17.210 Nicotine dependence, cigarettes, uncomplicated; F15.90 Other stimulant use, unspecified, uncomplicated; Z79.899 Other long term (current) drug therapy
CPT/HCPCS: 99284; Z7502; Z7610

== ENCOUNTER 2020-08-11 20:22 | Emergency (ER) | payer MEDICARE, OTHER ==
[~2020-08-11] VITALS: Ht 180.3 cm; Wt 84.1 kg
[2020-08-11] MEDS ORDERED: HALOPERIDOL 5 MG TABLET PO ONE ×2 (21:00→23:15)
[2020-08-11] MEDS ORDERED: LORazepam 1 MG TABLET PO ONE (21:00)
[2020-08-11 23:30] VITALS: BP 122/75
== END 2020-08-11 23:35 | disposition home or self-care (01) ==
LOC: EMS 20:22
DX: F15.10 Other stimulant abuse, uncomplicated (principal); F17.210 Nicotine dependence, cigarettes, uncomplicated; F32.9 Major depressive disorder, single episode, unspecified; F41.9 Anxiety disorder, unspecified
CPT/HCPCS: 99283

== ENCOUNTER 2020-08-20 03:38 | Emergency (ER) | payer MEDICARE, OTHER ==
[~2020-08-20] VITALS: Ht 180.3 cm; Wt 84.1 kg
[2020-08-20 04:02] VITALS: BP 128/95
[2020-08-20] MEDS ORDERED: LORazepam 2 MG TABLET PO ONE (04:15)
[2020-08-20 04:17] LABS: BASOPHILS % (AUTO) 0.4 % (0.0-2.0); EOSINOPHILS % (AUTO) 2.5 % (1.0-6.0); HEMATOCRIT 42.3 % (41-53); HEMOGLOBIN 14.4 g/dL (13.5-17.5); LYMPHOCYTES # (AUTO) 2.7 K/uL (1.0-4.8); LYMPHOCYTES % (AUTO) 22.3 % (22.0-44.0); MEAN CORPUSCULAR HEMOGLOBIN 30.9 pg (26.0-34.0); MEAN CORPUSCULAR HGB CONC 34.1 G/dL (31.0-37.0); MEAN CORPUSCULAR VOLUME 91 fL (80-100); MONOCYTES # (AUTO) 0.8 K/uL (0.1-1.0); MONOCYTES % (AUTO) 6.9 % (2.0-9.0); NEUTROPHILS # (AUTO) 8.1 K/uL (1.8-7.7); NEUTROPHILS % (AUTO) 67.9 % (40.0-70.0); PLATELET COUNT (AUTO) 326 K/uL (150-450); RED BLOOD CELL COUNT(AUTO) 4.65 MIL/uL (4.50-5.90); RED CELL DISTRIBUTION WIDTH 13.8 % (11.5-14.5)
[2020-08-20 04:25] LABS: AMPHET/METH SCREEN,URINE POSITIVE (NEGATIVE); BARBITURATE SCREEN, URINE NEGATIVE (NEGATIVE); BENZODIAZEPINES SCREEN,URINE NEGATIVE (NEGATIVE); CANNABINOID SCREEN,URINE NEGATIVE (NEGATIVE); COCAINE SCREEN,URINE NEGATIVE (NEGATIVE); METHADONE SCREEN, URINE NEGATIVE (NEGATIVE); OPIATE SCREEN,URINE NEGATIVE (NEGATIVE)
[2020-08-20 04:27] LABS: PHENCYCLIDINE SCREEN,URINE NEGATIVE (NEGATIVE)
[2020-08-20 04:27] LABS: ANION GAP 12 mmol/L (8-16); CALCIUM, TOTAL 8.8 mg/dL (8.8-10.5); CARBON DIOXIDE 25 mmol/L (22-29); CHLORIDE 101 mmol/L (98-107); CREATININE 1.06 mg/dL (0.60-1.30); GLOMERULAR FILTR. RATE CALC > 60 mL/min (>60); GLUCOSE,RANDOM 159 mg/dL (70-110); SODIUM SERUM 138 mmol/L (136-145); UREA NITROGEN, BLOOD 11 mg/dL (7-18)
[2020-08-20 04:35] LABS: ALANINE AMINOTRANSFERASE 24 U/L (12-78); ALBUMIN 3.9 g/dL (3.4-5.0); ALKALINE PHOSPHATASE 116 U/L (46-116); ASPARTATE AMINOTRANSFERASE 13 U/L (15-37); BILIRUBIN,TOTAL 0.3 mg/dL (0.1-1.0); TOTAL PROTEIN, SERUM 7.2 g/dL (6.4-8.2)
== END 2020-08-20 06:49 | disposition home or self-care (01) ==
LOC: EMS 03:44
DX: F22 Delusional disorders (principal); F15.90 Other stimulant use, unspecified, uncomplicated; F41.9 Anxiety disorder, unspecified; J45.909 Unspecified asthma, uncomplicated; F31.9 Bipolar disorder, unspecified; K21.9 Gastro-esophageal reflux disease without esophagitis; F20.9 Schizophrenia, unspecified; F17.210 Nicotine dependence, cigarettes, uncomplicated; F12.90 Cannabis use, unspecified, uncomplicated; F19.90 Other psychoactive substance use, unspecified, uncomplicated
CPT/HCPCS: 36415; 80053; 80307; 85025; 99283; G0480

== ENCOUNTER 2020-08-21 11:47 | Emergency (ER) | payer MEDICARE, OTHER ==
[~2020-08-21] VITALS: Ht 180.3 cm; Wt 84.1 kg
[2020-08-21 12:53] LABS: HEMATOCRIT 45.8 % (41-53); HEMOGLOBIN 15.3 g/dL (13.5-17.5); MEAN CORPUSCULAR HEMOGLOBIN 30.6 pg (26.0-34.0); MEAN CORPUSCULAR HGB CONC 33.3 G/dL (31.0-37.0); MEAN CORPUSCULAR VOLUME 92 fL (80-100); RED BLOOD CELL COUNT(AUTO) 4.99 MIL/uL (4.50-5.90); RED CELL DISTRIBUTION WIDTH 13.8 % (11.5-14.5)
[2020-08-21 12:54] LABS: BASOPHILS % (AUTO) 0.4 % (0.0-2.0); EOSINOPHILS % (AUTO) 1.5 % (1.0-6.0); LYMPHOCYTES # (AUTO) 1.7 K/uL (1.0-4.8); LYMPHOCYTES % (AUTO) 13.3 % (22.0-44.0); MONOCYTES # (AUTO) 0.8 K/uL (0.1-1.0); MONOCYTES % (AUTO) 6.3 % (2.0-9.0); NEUTROPHILS # (AUTO) 10.1 K/uL (1.8-7.7); NEUTROPHILS % (AUTO) 78.5 % (40.0-70.0); PLATELET COUNT (AUTO) 339 K/uL (150-450)
[2020-08-21 13:06] LABS: ANION GAP 12 mmol/L (8-16); CALCIUM, TOTAL 9.2 mg/dL (8.8-10.5); CARBON DIOXIDE 26 mmol/L (22-29); CHLORIDE 102 mmol/L (98-107); CREATININE 0.89 mg/dL (0.60-1.30); GLOMERULAR FILTR. RATE CALC > 60 mL/min (>60); GLUCOSE,RANDOM 106 mg/dL (70-110); POTASSIUM 4.2 mmol/L (3.5-5.1); SODIUM SERUM 140 mmol/L (136-145); UREA NITROGEN, BLOOD 6 mg/dL (7-18)
[2020-08-21 13:11] LABS: ALANINE AMINOTRANSFERASE 21 U/L (12-78); ALBUMIN 4.2 g/dL (3.4-5.0); ALKALINE PHOSPHATASE 102 U/L (46-116); ASPARTATE AMINOTRANSFERASE 13 U/L (15-37); BILIRUBIN,TOTAL 0.3 mg/dL (0.1-1.0); TOTAL PROTEIN, SERUM 7.7 g/dL (6.4-8.2)
[2020-08-21] MEDS ORDERED: LORazepam 1 MG TABLET PO ONE (14:30)
[2020-08-21 14:48] VITALS: BP 176/96
[2020-08-21 15:33] LABS: AMPHET/METH SCREEN,URINE POSITIVE (NEGATIVE); BARBITURATE SCREEN, URINE NEGATIVE (NEGATIVE); BENZODIAZEPINES SCREEN,URINE NEGATIVE (NEGATIVE); CANNABINOID SCREEN,URINE NEGATIVE (NEGATIVE); COCAINE SCREEN,URINE NEGATIVE (NEGATIVE); METHADONE SCREEN, URINE NEGATIVE (NEGATIVE); OPIATE SCREEN,URINE NEGATIVE (NEGATIVE)
[2020-08-21 15:34] LABS: PHENCYCLIDINE SCREEN,URINE NEGATIVE (NEGATIVE)
== END 2020-08-21 15:20 | disposition home or self-care (01) ==
LOC: EMS 12:03
DX: R44.3 Hallucinations, unspecified (principal); F19.10 Other psychoactive substance abuse, uncomplicated; F41.9 Anxiety disorder, unspecified; F31.9 Bipolar disorder, unspecified; J44.9 Chronic obstructive pulmonary disease, unspecified; K21.9 Gastro-esophageal reflux disease without esophagitis; F17.210 Nicotine dependence, cigarettes, uncomplicated
CPT/HCPCS: 36415; 80053; 80307; 85025; 99284; G0480

== ENCOUNTER 2020-08-22 19:42 | Emergency (ER) | payer MEDICARE, OTHER ==
[~2020-08-22] VITALS: Ht 180.3 cm; Wt 81.8 kg
[2020-08-22] MEDS ORDERED: HALOPERIDOL 5 MG TABLET PO ONE (21:00)
[2020-08-22] MEDS ORDERED: LORazepam 1 MG TABLET PO ONE (21:00)
[2020-08-22 21:45] VITALS: BP 136/91
== END 2020-08-22 22:05 | disposition home or self-care (01) ==
LOC: EMS 19:46
DX: F15.959 Other stimulant use, unspecified with stimulant-induced psychotic disorder, unspecified (principal); F41.9 Anxiety disorder, unspecified; J45.909 Unspecified asthma, uncomplicated; F31.9 Bipolar disorder, unspecified; K21.9 Gastro-esophageal reflux disease without esophagitis; F20.9 Schizophrenia, unspecified; F17.210 Nicotine dependence, cigarettes, uncomplicated; F12.90 Cannabis use, unspecified, uncomplicated
CPT/HCPCS: 99283

== ENCOUNTER 2020-08-23 17:11 | Emergency (ER) | payer MEDICARE, OTHER ==
[~2020-08-23] VITALS: Ht 180.3 cm; Wt 81.8 kg
[2020-08-23 17:50] VITALS: BP 122/86
== END 2020-08-23 18:30 | disposition home or self-care (01) ==
LOC: EMS 17:11
DX: F24 Shared psychotic disorder (principal); F31.9 Bipolar disorder, unspecified; F17.210 Nicotine dependence, cigarettes, uncomplicated; F12.90 Cannabis use, unspecified, uncomplicated
CPT/HCPCS: 99283; 99284

== ENCOUNTER 2020-08-24 18:47 | Emergency (ER) | payer MEDICARE, OTHER ==
[~2020-08-24] VITALS: Ht 180.3 cm; Wt 84.1 kg
[2020-08-24] MEDS ORDERED: HALOPERIDOL 5 MG TABLET PO ONE (20:00)
[2020-08-24] MEDS ORDERED: LORazepam 1 MG TABLET PO ONE (20:00)
[2020-08-24 21:22] VITALS: BP 123/74
== END 2020-08-24 21:57 | disposition home or self-care (01) ==
LOC: EMS 18:47
DX: F24 Shared psychotic disorder (principal); F32.9 Major depressive disorder, single episode, unspecified
CPT/HCPCS: 99283

== ENCOUNTER 2020-09-03 17:32 | Emergency (ER) | payer MEDICARE, OTHER ==
[~2020-09-03] VITALS: Ht 182.9 cm; Wt 81.8 kg
[2020-09-03] MEDS ORDERED: LORazepam 1 MG TABLET PO ONE (18:30)
[2020-09-03 19:13] LABS: BASOPHILS % (AUTO) 0.6 % (0.0-2.0); EOSINOPHILS % (AUTO) 1.2 % (1.0-6.0); HEMATOCRIT 47.5 % (41-53); HEMOGLOBIN 15.8 g/dL (13.5-17.5); LYMPHOCYTES # (AUTO) 2.6 K/uL (1.0-4.8); LYMPHOCYTES % (AUTO) 14.8 % (22.0-44.0); MEAN CORPUSCULAR HEMOGLOBIN 30.3 pg (26.0-34.0); MEAN CORPUSCULAR HGB CONC 33.2 G/dL (31.0-37.0); MEAN CORPUSCULAR VOLUME 91 fL (80-100); MONOCYTES # (AUTO) 1.1 K/uL (0.1-1.0); MONOCYTES % (AUTO) 6.4 % (2.0-9.0); NEUTROPHILS # (AUTO) 13.5 K/uL (1.8-7.7); PLATELET COUNT (AUTO) 399 K/uL (150-450); RED CELL DISTRIBUTION WIDTH 14.1 % (11.5-14.5)
[2020-09-03 19:22] LABS: ANION GAP 9 mmol/L (8-16); CALCIUM, TOTAL 9.3 mg/dL (8.8-10.5); CARBON DIOXIDE 26 mmol/L (22-29); CHLORIDE 101 mmol/L (98-107); CREATININE 1.16 mg/dL (0.60-1.30); GLOMERULAR FILTR. RATE CALC > 60 mL/min (>60); GLUCOSE,RANDOM 180 mg/dL (70-110); POTASSIUM 4.4 mmol/L (3.5-5.1); SODIUM SERUM 136 mmol/L (136-145); UREA NITROGEN, BLOOD 12 mg/dL (7-18)
[2020-09-03 19:27] LABS: ALANINE AMINOTRANSFERASE 33 U/L (12-78); ALBUMIN 4.4 g/dL (3.4-5.0); ALKALINE PHOSPHATASE 110 U/L (46-116); ASPARTATE AMINOTRANSFERASE 14 U/L (15-37); BILIRUBIN,TOTAL 0.2 mg/dL (0.1-1.0); TOTAL PROTEIN, SERUM 8.1 g/dL (6.4-8.2)
[2020-09-03 21:15] VITALS: BP 150/85
== END 2020-09-03 21:28 | disposition home or self-care (01) ==
LOC: EMS 17:34
DX: D72.829 Elevated white blood cell count, unspecified (principal); F15.10 Other stimulant abuse, uncomplicated; F22 Delusional disorders; F41.9 Anxiety disorder, unspecified; J45.909 Unspecified asthma, uncomplicated; F31.9 Bipolar disorder, unspecified; K21.9 Gastro-esophageal reflux disease without esophagitis; F20.9 Schizophrenia, unspecified; F17.210 Nicotine dependence, cigarettes, uncomplicated; F12.90 Cannabis use, unspecified, uncomplicated
CPT/HCPCS: 36415; 80053; 85025; 99283; G0480

== ENCOUNTER 2020-09-05 15:47 | Emergency (ER) | payer MEDICARE, OTHER ==
[~2020-09-05] VITALS: Ht 180.3 cm; Wt 86.4 kg
[2020-09-05 16:56] LABS: COVID AG,FIA SOURCE NASOPHARYNGEAL
[2020-09-05 17:15] VITALS: BP 119/68
== END 2020-09-05 17:35 | disposition home or self-care (01) ==
LOC: EMS 15:47
DX: F14.10 Cocaine abuse, uncomplicated (principal); Z20.822 Contact with and (suspected) exposure to COVID-19
CPT/HCPCS: 87426; 99283

== ENCOUNTER 2020-09-07 21:12 | Emergency (ER) | payer MEDICARE, OTHER ==
[~2020-09-07] VITALS: Ht 180.3 cm; Wt 86.4 kg
[2020-09-07 21:46] VITALS: BP 136/79
[2020-09-07 21:55] LABS: BASOPHILS % (AUTO) 0.4 % (0.0-2.0); EOSINOPHILS % (AUTO) 1.8 % (1.0-6.0); HEMATOCRIT 46.9 % (41-53); HEMOGLOBIN 15.6 g/dL (13.5-17.5); LYMPHOCYTES # (AUTO) 2.5 K/uL (1.0-4.8); LYMPHOCYTES % (AUTO) 14.6 % (22.0-44.0); MEAN CORPUSCULAR HEMOGLOBIN 30.5 pg (26.0-34.0); MEAN CORPUSCULAR HGB CONC 33.4 G/dL (31.0-37.0); MEAN CORPUSCULAR VOLUME 92 fL (80-100); NEUTROPHILS # (AUTO) 13.3 K/uL (1.8-7.7); NEUTROPHILS % (AUTO) 77.2 % (40.0-70.0); PLATELET COUNT (AUTO) 364 K/uL (150-450); RED BLOOD CELL COUNT(AUTO) 5.12 MIL/uL (4.50-5.90); RED CELL DISTRIBUTION WIDTH 13.8 % (11.5-14.5)
[2020-09-07 22:05] LABS: ANION GAP 8 mmol/L (8-16); CALCIUM, TOTAL 9.9 mg/dL (8.8-10.5); CARBON DIOXIDE 30 mmol/L (22-29); CHLORIDE 101 mmol/L (98-107); CREATININE 1.06 mg/dL (0.60-1.30); GLOMERULAR FILTR. RATE CALC > 60 mL/min (>60); GLUCOSE,RANDOM 146 mg/dL (70-110); POTASSIUM 4.1 mmol/L (3.5-5.1); SODIUM SERUM 139 mmol/L (136-145); UREA NITROGEN, BLOOD 13 mg/dL (7-18)
[2020-09-07 22:10] LABS: ALANINE AMINOTRANSFERASE 28 U/L (12-78); ALBUMIN 4.3 g/dL (3.4-5.0); ALKALINE PHOSPHATASE 116 U/L (46-116); ASPARTATE AMINOTRANSFERASE 13 U/L (15-37); BILIRUBIN,TOTAL 0.2 mg/dL (0.1-1.0); TOTAL PROTEIN, SERUM 8.3 g/dL (6.4-8.2)
== END 2020-09-07 23:06 | disposition left against medical advice (07) ==
LOC: EMS 21:12
DX: R44.0 Auditory hallucinations (principal); Z53.21 Procedure and treatment not carried out due to patient leaving prior to being seen by health care provider
CPT/HCPCS: 80053; 85025; G0480

== ENCOUNTER 2020-09-11 15:37 | Emergency (ER) | payer MEDICARE, OTHER ==
[~2020-09-11] VITALS: Ht 180.3 cm; Wt 86.4 kg
[2020-09-11 15:46] VITALS: BP 135/75
[2020-09-11 18:17] LABS: BASOPHILS % (AUTO) 0.4 % (0.0-2.0); EOSINOPHILS % (AUTO) 0.9 % (1.0-6.0); HEMATOCRIT 44.4 % (41-53); HEMOGLOBIN 14.7 g/dL (13.5-17.5); LYMPHOCYTES # (AUTO) 2.2 K/uL (1.0-4.8); MEAN CORPUSCULAR HEMOGLOBIN 30.4 pg (26.0-34.0); MEAN CORPUSCULAR VOLUME 92 fL (80-100); MONOCYTES # (AUTO) 0.8 K/uL (0.1-1.0); MONOCYTES % (AUTO) 5.2 % (2.0-9.0); NEUTROPHILS # (AUTO) 12.4 K/uL (1.8-7.7); NEUTROPHILS % (AUTO) 79.5 % (40.0-70.0); PLATELET COUNT (AUTO) 314 K/uL (150-450); RED BLOOD CELL COUNT(AUTO) 4.82 MIL/uL (4.50-5.90); RED CELL DISTRIBUTION WIDTH 13.8 % (11.5-14.5)
[2020-09-11 18:26] LABS: ANION GAP 12 mmol/L (8-16); CALCIUM, TOTAL 9.2 mg/dL (8.8-10.5); CARBON DIOXIDE 22 mmol/L (22-29); CHLORIDE 104 mmol/L (98-107); CREATININE 0.96 mg/dL (0.60-1.30); GLOMERULAR FILTR. RATE CALC > 60 mL/min (>60); GLUCOSE,RANDOM 122 mg/dL (70-110); POTASSIUM 3.7 mmol/L (3.5-5.1); SODIUM SERUM 138 mmol/L (136-145); UREA NITROGEN, BLOOD 12 mg/dL (7-18)
[2020-09-11] MEDS ORDERED: LORazepam 2 MG TABLET PO ONE (18:30)
[2020-09-11] MEDS ORDERED: HALOPERIDOL 5 MG TABLET PO ONE (18:30)
[2020-09-11 18:31] LABS: ALANINE AMINOTRANSFERASE 25 U/L (12-78); ALBUMIN 4.1 g/dL (3.4-5.0); ALKALINE PHOSPHATASE 100 U/L (46-116); ASPARTATE AMINOTRANSFERASE 12 U/L (15-37); BILIRUBIN,TOTAL 0.2 mg/dL (0.1-1.0); TOTAL PROTEIN, SERUM 7.3 g/dL (6.4-8.2)
== END 2020-09-11 19:23 | disposition home or self-care (01) ==
LOC: EMS 15:40
DX: F41.9 Anxiety disorder, unspecified (principal); F15.10 Other stimulant abuse, uncomplicated; F31.9 Bipolar disorder, unspecified; J45.909 Unspecified asthma, uncomplicated; K21.9 Gastro-esophageal reflux disease without esophagitis; F20.9 Schizophrenia, unspecified; F17.210 Nicotine dependence, cigarettes, uncomplicated; F11.90 Opioid use, unspecified, uncomplicated; F12.90 Cannabis use, unspecified, uncomplicated
CPT/HCPCS: 36415; 80053; 85025; 99283; G0480

== ENCOUNTER 2020-09-14 11:54 | Emergency (ER) | payer MEDICARE, OTHER ==
[~2020-09-14] VITALS: Ht 180.3 cm; Wt 86.4 kg
[2020-09-14 13:49] LABS: BASOPHILS % (AUTO) 0.7 % (0.0-2.0); EOSINOPHILS % (AUTO) 2.6 % (1.0-6.0); HEMATOCRIT 44.9 % (41-53); HEMOGLOBIN 15.3 g/dL (13.5-17.5); LYMPHOCYTES # (AUTO) 2.2 K/uL (1.0-4.8); MEAN CORPUSCULAR HEMOGLOBIN 31.1 pg (26.0-34.0); MEAN CORPUSCULAR HGB CONC 34.1 G/dL (31.0-37.0); MEAN CORPUSCULAR VOLUME 91 fL (80-100); MONOCYTES # (AUTO) 0.8 K/uL (0.1-1.0); MONOCYTES % (AUTO) 7.8 % (2.0-9.0); NEUTROPHILS # (AUTO) 7.2 K/uL (1.8-7.7); NEUTROPHILS % (AUTO) 67.9 % (40.0-70.0); PLATELET COUNT (AUTO) 304 K/uL (150-450); RED BLOOD CELL COUNT(AUTO) 4.92 MIL/uL (4.50-5.90); RED CELL DISTRIBUTION WIDTH 13.9 % (11.5-14.5)
[2020-09-14 13:54] LABS: AMPHET/METH SCREEN,URINE POSITIVE (NEGATIVE); BARBITURATE SCREEN, URINE NEGATIVE (NEGATIVE); BENZODIAZEPINES SCREEN,URINE NEGATIVE (NEGATIVE); CANNABINOID SCREEN,URINE NEGATIVE (NEGATIVE); COCAINE SCREEN,URINE NEGATIVE (NEGATIVE); METHADONE SCREEN, URINE NEGATIVE (NEGATIVE); OPIATE SCREEN,URINE NEGATIVE (NEGATIVE)
[2020-09-14 13:55] LABS: PHENCYCLIDINE SCREEN,URINE NEGATIVE (NEGATIVE)
[2020-09-14 13:58] LABS: ANION GAP 9 mmol/L (8-16); CARBON DIOXIDE 27 mmol/L (22-29); CHLORIDE 104 mmol/L (98-107); CREATININE 1.12 mg/dL (0.60-1.30); GLOMERULAR FILTR. RATE CALC > 60 mL/min (>60); GLUCOSE,RANDOM 102 mg/dL (70-110); POTASSIUM 4.2 mmol/L (3.5-5.1); SODIUM SERUM 140 mmol/L (136-145); UREA NITROGEN, BLOOD 9 mg/dL (7-18)
[2020-09-14 14:00] VITALS: BP 110/69
[2020-09-14 14:04] LABS: ALANINE AMINOTRANSFERASE 20 U/L (12-78); ALBUMIN 3.9 g/dL (3.4-5.0); ALKALINE PHOSPHATASE 99 U/L (46-116); ASPARTATE AMINOTRANSFERASE 12 U/L (15-37); BILIRUBIN,TOTAL 0.2 mg/dL (0.1-1.0)
[2020-09-14] MEDS ORDERED: HALOPERIDOL 5 MG TABLET PO ONE (14:15)
== END 2020-09-14 14:30 | disposition home or self-care (01) ==
LOC: EMS 11:54
DX: F22 Delusional disorders (principal); F15.90 Other stimulant use, unspecified, uncomplicated; F41.9 Anxiety disorder, unspecified; J45.909 Unspecified asthma, uncomplicated; F31.9 Bipolar disorder, unspecified; K21.9 Gastro-esophageal reflux disease without esophagitis; F20.9 Schizophrenia, unspecified; F17.210 Nicotine dependence, cigarettes, uncomplicated; F11.90 Opioid use, unspecified, uncomplicated; F12.90 Cannabis use, unspecified, uncomplicated; Z91.14 Patient's other noncompliance with medication regimen
CPT/HCPCS: 36415; 80053; 80307; 85025; 99283; G0480

== ENCOUNTER 2020-09-15 13:33 | Emergency (ER) | payer MEDICARE, OTHER | END 2020-09-15 13:36 | disposition home or self-care (01) | LOC: EMS 13:36 | DX: R44.0 Auditory hallucinations (principal); Z53.21 Procedure and treatment not carried out due to patient leaving prior to being seen by health care provider ==

== ENCOUNTER 2020-10-04 17:20 | Emergency (ER) | payer MEDICARE, OTHER ==
[~2020-10-04] VITALS: Ht 180.3 cm; Wt 86.4 kg
[2020-10-04 18:32] VITALS: BP 130/68
[2020-10-04] MEDS ORDERED: HALOPERIDOL 5 MG TABLET PO ONE (18:45)
== END 2020-10-04 18:50 | disposition home or self-care (01) ==
LOC: EMS 17:26
DX: F24 Shared psychotic disorder (principal); F15.10 Other stimulant abuse, uncomplicated; F41.9 Anxiety disorder, unspecified; F31.9 Bipolar disorder, unspecified; J45.909 Unspecified asthma, uncomplicated; K21.9 Gastro-esophageal reflux disease without esophagitis; F20.9 Schizophrenia, unspecified; F17.210 Nicotine dependence, cigarettes, uncomplicated; F14.90 Cocaine use, unspecified, uncomplicated; F12.90 Cannabis use, unspecified, uncomplicated; F19.90 Other psychoactive substance use, unspecified, uncomplicated
CPT/HCPCS: 99283; 99284

== ENCOUNTER 2020-10-05 05:22 | Emergency (ER) | payer MEDICARE, OTHER ==
[~2020-10-05] VITALS: Ht 180.3 cm; Wt 86.4 kg
[2020-10-05 05:52] VITALS: BP 123/75
== END 2020-10-05 06:40 | disposition left against medical advice (07) ==
LOC: EMS 05:24
DX: Z04.6 Encounter for general psychiatric examination, requested by authority (principal); Z53.21 Procedure and treatment not carried out due to patient leaving prior to being seen by health care provider

== ENCOUNTER 2020-10-07 13:34 | Emergency (ER) | payer MEDICARE, OTHER ==
[~2020-10-07] VITALS: Ht 180.3 cm; Wt 81.8 kg
[2020-10-07 13:36] VITALS: BP 115/72
[2020-10-07] MEDS ORDERED: HALOPERIDOL 5 MG TABLET PO ONE (15:00)
[2020-10-07] MEDS ORDERED: IBUPROFEN 600 MG TABLET PO ONE (15:00)
== END 2020-10-07 16:03 | disposition home or self-care (01) ==
LOC: EMS 13:46
DX: R07.9 Chest pain, unspecified (principal); F15.10 Other stimulant abuse, uncomplicated; F41.9 Anxiety disorder, unspecified; F32.9 Major depressive disorder, single episode, unspecified; F17.210 Nicotine dependence, cigarettes, uncomplicated; F14.90 Cocaine use, unspecified, uncomplicated; F12.90 Cannabis use, unspecified, uncomplicated
CPT/HCPCS: 71045; 99283

== ENCOUNTER 2020-10-10 11:20 | Emergency (ER) | payer MEDICARE, OTHER ==
[~2020-10-10] VITALS: Ht 180.3 cm; Wt 84.1 kg
[2020-10-10 11:39] VITALS: BP 119/74
[2020-10-10] MEDS ORDERED: HALOPERIDOL 5 MG TABLET PO ONE (12:00)
== END 2020-10-10 13:26 | disposition home or self-care (01) ==
LOC: EMS 11:22
DX: F20.9 Schizophrenia, unspecified (principal); R45.851 Suicidal ideations; F41.9 Anxiety disorder, unspecified; J45.909 Unspecified asthma, uncomplicated; F31.9 Bipolar disorder, unspecified; K21.9 Gastro-esophageal reflux disease without esophagitis; F17.210 Nicotine dependence, cigarettes, uncomplicated; F12.90 Cannabis use, unspecified, uncomplicated; F19.90 Other psychoactive substance use, unspecified, uncomplicated; F14.90 Cocaine use, unspecified, uncomplicated
CPT/HCPCS: 99284; Z7502; Z7610

== ENCOUNTER 2020-10-10 14:38 | Emergency (ER) | payer MEDICARE, OTHER ==
[~2020-10-10] VITALS: Ht 180.3 cm; Wt 84.1 kg
[2020-10-10] MEDS ORDERED: LORazepam 2 MG TABLET PO ONE (15:15)
[2020-10-10 15:34] LABS: ANION GAP 11 mmol/L (8-16); CALCIUM, TOTAL 9.2 mg/dL (8.8-10.5); CARBON DIOXIDE 27 mmol/L (22-29); CHLORIDE 104 mmol/L (98-107); CREATININE 1.02 mg/dL (0.60-1.30); GLOMERULAR FILTR. RATE CALC > 60 mL/min (>60); GLUCOSE,RANDOM 91 mg/dL (70-110); POTASSIUM 4.1 mmol/L (3.5-5.1); SODIUM SERUM 142 mmol/L (136-145); UREA NITROGEN, BLOOD 9 mg/dL (7-18)
[2020-10-10 15:38] LABS: ALANINE AMINOTRANSFERASE 28 U/L (12-78); ALBUMIN 3.9 g/dL (3.4-5.0); ALKALINE PHOSPHATASE 102 U/L (46-116); ASPARTATE AMINOTRANSFERASE 13 U/L (15-37); BASOPHILS % (AUTO) 0.4 % (0.0-2.0); BILIRUBIN,TOTAL 0.4 mg/dL (0.1-1.0); HEMATOCRIT 44.9 % (41-53); HEMOGLOBIN 15.2 g/dL (13.5-17.5); LYMPHOCYTES # (AUTO) 2.2 K/uL (1.0-4.8); LYMPHOCYTES % (AUTO) 21.7 % (22.0-44.0); MEAN CORPUSCULAR HEMOGLOBIN 30.7 pg (26.0-34.0); MEAN CORPUSCULAR HGB CONC 33.8 G/dL (31.0-37.0); MEAN CORPUSCULAR VOLUME 91 fL (80-100); MONOCYTES # (AUTO) 0.6 K/uL (0.1-1.0); MONOCYTES % (AUTO) 5.6 % (2.0-9.0); NEUTROPHILS # (AUTO) 7.2 K/uL (1.8-7.7); NEUTROPHILS % (AUTO) 69.3 % (40.0-70.0); PLATELET COUNT (AUTO) 331 K/uL (150-450); RED BLOOD CELL COUNT(AUTO) 4.94 MIL/uL (4.50-5.90); RED CELL DISTRIBUTION WIDTH 13.2 % (11.5-14.5); TOTAL PROTEIN, SERUM 6.8 g/dL (6.4-8.2)
[2020-10-10 16:49] VITALS: BP 123/74
== END 2020-10-10 16:51 | disposition home or self-care (01) ==
LOC: EMS 14:41
DX: F20.9 Schizophrenia, unspecified (principal); F31.9 Bipolar disorder, unspecified; F41.9 Anxiety disorder, unspecified; J45.909 Unspecified asthma, uncomplicated; K21.9 Gastro-esophageal reflux disease without esophagitis; F12.90 Cannabis use, unspecified, uncomplicated; F15.90 Other stimulant use, unspecified, uncomplicated; F17.210 Nicotine dependence, cigarettes, uncomplicated; Z79.899 Other long term (current) drug therapy
CPT/HCPCS: 36415; 80053; 85025; 99283; G0480

== ENCOUNTER 2020-10-11 16:50 | Emergency (ER) | payer MEDICARE, OTHER ==
[~2020-10-11] VITALS: Ht 180.3 cm; Wt 86.4 kg
[2020-10-11 18:22] VITALS: BP 122/85
== END 2020-10-11 18:22 | disposition home or self-care (01) ==
LOC: EMS 16:56
DX: F32.9 Major depressive disorder, single episode, unspecified (principal); F15.10 Other stimulant abuse, uncomplicated; F41.9 Anxiety disorder, unspecified; J44.9 Chronic obstructive pulmonary disease, unspecified; K21.9 Gastro-esophageal reflux disease without esophagitis; F20.9 Schizophrenia, unspecified; F17.210 Nicotine dependence, cigarettes, uncomplicated; F14.90 Cocaine use, unspecified, uncomplicated; F12.90 Cannabis use, unspecified, uncomplicated; F19.90 Other psychoactive substance use, unspecified, uncomplicated
CPT/HCPCS: 99284; Z7502

== ENCOUNTER 2020-10-12 01:54 | Emergency (ER) | payer MEDICARE, OTHER ==
[~2020-10-12] VITALS: Ht 180.3 cm; Wt 92.5 kg
[2020-10-12] MEDS ORDERED: HALOPERIDOL 5 MG TABLET PO ONE (02:45)
[2020-10-12] MEDS ORDERED: DiphenhydrAMINE HCL 25 MG CAPSULE PO ONE (02:45)
[2020-10-12 03:42] VITALS: BP 115/85
== END 2020-10-12 03:40 | disposition home or self-care (01) ==
LOC: EMS 01:54 → EDUNIT# 01:54 → EMS 03:40
DX: F15.10 Other stimulant abuse, uncomplicated (principal); F41.9 Anxiety disorder, unspecified; F17.210 Nicotine dependence, cigarettes, uncomplicated; F14.90 Cocaine use, unspecified, uncomplicated; F12.90 Cannabis use, unspecified, uncomplicated; J44.9 Chronic obstructive pulmonary disease, unspecified
CPT/HCPCS: 99283

== ENCOUNTER 2020-10-15 18:15 | Emergency (ER) | payer MEDICARE, OTHER ==
[~2020-10-15] VITALS: Ht 180.3 cm; Wt 84.1 kg
[~2020-10-15 18:15] MED LIST changes: -OLAN10TA3 PO; +OLAN10TA74 PO
[2020-10-15 18:21] VITALS: BP 124/73
[2020-10-15] MEDS ORDERED: HydrOXYzine PAMOATE 50 MG CAPSULE PO ONE (18:30)
== END 2020-10-15 18:30 | disposition home or self-care (01) ==
LOC: EMS 18:17
DX: F41.9 Anxiety disorder, unspecified (principal); F15.10 Other stimulant abuse, uncomplicated; J45.909 Unspecified asthma, uncomplicated; F31.9 Bipolar disorder, unspecified; K21.9 Gastro-esophageal reflux disease without esophagitis; F20.9 Schizophrenia, unspecified; F17.210 Nicotine dependence, cigarettes, uncomplicated; F12.90 Cannabis use, unspecified, uncomplicated; F19.90 Other psychoactive substance use, unspecified, uncomplicated; F14.90 Cocaine use, unspecified, uncomplicated
CPT/HCPCS: 99283

== ENCOUNTER 2020-10-17 06:20 | Emergency (ER) | payer MEDICARE, OTHER ==
[~2020-10-17] VITALS: Ht 180.3 cm; Wt 84.1 kg
[2020-10-17] MEDS ORDERED: HALOPERIDOL 5 MG TABLET PO ONE (08:30)
[2020-10-17 09:02] VITALS: BP 119/80
== END 2020-10-17 09:03 | disposition home or self-care (01) ==
LOC: EMS 06:21
DX: F41.9 Anxiety disorder, unspecified (principal); F15.10 Other stimulant abuse, uncomplicated; J45.909 Unspecified asthma, uncomplicated; F31.9 Bipolar disorder, unspecified; J44.9 Chronic obstructive pulmonary disease, unspecified; K21.9 Gastro-esophageal reflux disease without esophagitis; F20.9 Schizophrenia, unspecified; F17.210 Nicotine dependence, cigarettes, uncomplicated; F12.90 Cannabis use, unspecified, uncomplicated; F19.90 Other psychoactive substance use, unspecified, uncomplicated; F14.90 Cocaine use, unspecified, uncomplicated
CPT/HCPCS: 99283

== ENCOUNTER 2020-10-19 17:25 | Emergency (ER) | payer MEDICARE, OTHER ==
[~2020-10-19] VITALS: Ht 180.3 cm; Wt 84.0 kg
[2020-10-19] MEDS ORDERED: ALBUTEROL SULFATE 2.5 MG/0.5 ML NEB SOLUTION NEB ONE (18:40)
[2020-10-19] MEDS ORDERED: DEXAMETHASONE SOD PHOS 4 MG/ML 5 ML VIAL IM ONE (18:45)
[2020-10-19] MEDS ORDERED: ALBUTEROL SULFATE HFA 90 MCG/PUFF 8 GM INHALER IH ONE (18:45)
[2020-10-19] MEDS ORDERED: 0.9% SODIUM CHLORIDE 5 ML NEB SOLUTION NEB ONE (18:51)
[2020-10-19 20:00] VITALS: BP 140/63
[2020-10-19] MEDS ORDERED: HALO5TAB2 PO (21:52)
== END 2020-10-19 22:00 | disposition home or self-care (01) ==
LOC: EMS 17:26
DX: J45.909 Unspecified asthma, uncomplicated (principal)
CPT/HCPCS: 94640; 96372; 99284; J1100; J3535

== ENCOUNTER 2020-10-19 21:42 | Emergency (ER) | payer MEDICARE, OTHER ==
[~2020-10-19] VITALS: Ht 180.3 cm; Wt 84.1 kg
[2020-10-19] MEDS ORDERED: HALO5TAB2 PO (21:52)
[2020-10-19] MEDS ORDERED: LORazepam 1 MG TABLET PO ONE (23:00)
[2020-10-20 00:04] VITALS: BP 121/83
== END 2020-10-20 00:05 | disposition home or self-care (01) ==
LOC: EMS 21:42
DX: F41.9 Anxiety disorder, unspecified (principal); F15.10 Other stimulant abuse, uncomplicated; F31.9 Bipolar disorder, unspecified; J45.909 Unspecified asthma, uncomplicated; F20.9 Schizophrenia, unspecified
CPT/HCPCS: 99283

== ENCOUNTER 2020-10-22 15:11 | Emergency (ER) | payer MEDICARE, OTHER ==
[~2020-10-22] VITALS: Ht 180.3 cm; Wt 84.1 kg
[~2020-10-22 15:11] MED LIST changes: +HALO5TAB2 PO
[2020-10-22 15:19] VITALS: BP 137/81
== END 2020-10-22 17:40 | disposition left against medical advice (07) ==
LOC: EMS 15:17
DX: R00.2 Palpitations (principal); Z53.21 Procedure and treatment not carried out due to patient leaving prior to being seen by health care provider
CPT/HCPCS: 93005

== ENCOUNTER 2020-10-25 15:41 | Emergency (ER) | payer MEDICARE, OTHER ==
[~2020-10-25] VITALS: Ht 180.3 cm; Wt 84.1 kg
[2020-10-25 15:45] VITALS: BP 105/78
== END 2020-10-25 17:18 | disposition left against medical advice (07) ==
LOC: EMS 15:43
DX: F20.9 Schizophrenia, unspecified (principal); J45.909 Unspecified asthma, uncomplicated; F31.9 Bipolar disorder, unspecified; F17.210 Nicotine dependence, cigarettes, uncomplicated; F14.90 Cocaine use, unspecified, uncomplicated; F12.90 Cannabis use, unspecified, uncomplicated
CPT/HCPCS: 99281; Z7502

== ENCOUNTER 2020-10-29 23:17 | Emergency (ER) | payer MEDICARE, OTHER ==
[~2020-10-29] VITALS: Ht 180.3 cm; Wt 81.8 kg
[2020-10-30 00:47] VITALS: BP 135/82
== END 2020-10-30 00:58 | disposition home or self-care (01) ==
LOC: EMS 23:18
DX: F15.10 Other stimulant abuse, uncomplicated (principal); F41.9 Anxiety disorder, unspecified; F31.9 Bipolar disorder, unspecified; J45.909 Unspecified asthma, uncomplicated; K21.9 Gastro-esophageal reflux disease without esophagitis; F20.9 Schizophrenia, unspecified; F17.210 Nicotine dependence, cigarettes, uncomplicated; F14.90 Cocaine use, unspecified, uncomplicated; F12.90 Cannabis use, unspecified, uncomplicated
CPT/HCPCS: 99281; Z7502

== ENCOUNTER 2020-11-01 15:26 | Emergency (ER) | payer MEDICARE, OTHER ==
[~2020-11-01] VITALS: Ht 180.3 cm; Wt 86.4 kg
[2020-11-01 15:31] VITALS: BP 113/73
== END 2020-11-01 15:57 | disposition home or self-care (01) ==
LOC: EMS 15:28
DX: F41.9 Anxiety disorder, unspecified (principal); F15.10 Other stimulant abuse, uncomplicated; J45.909 Unspecified asthma, uncomplicated; F32.9 Major depressive disorder, single episode, unspecified; F17.210 Nicotine dependence, cigarettes, uncomplicated; F14.90 Cocaine use, unspecified, uncomplicated; F12.90 Cannabis use, unspecified, uncomplicated
CPT/HCPCS: 99283; Z7502

== ENCOUNTER 2020-11-04 15:16 | Emergency (ER) | payer MEDICARE, OTHER ==
[~2020-11-04] VITALS: Ht 180.3 cm; Wt 86.4 kg
[2020-11-04 15:19] VITALS: BP 132/83
[2020-11-04] MEDS ORDERED: HALOPERIDOL 5 MG TABLET PO ONE (16:00)
[2020-11-04] MEDS ORDERED: LORazepam 1 MG TABLET PO ONE (16:00)
== END 2020-11-04 17:29 | disposition home or self-care (01) ==
LOC: EMS 15:25
DX: F41.9 Anxiety disorder, unspecified (principal); F15.10 Other stimulant abuse, uncomplicated; J45.909 Unspecified asthma, uncomplicated; F31.9 Bipolar disorder, unspecified; K21.9 Gastro-esophageal reflux disease without esophagitis; F20.9 Schizophrenia, unspecified; F17.210 Nicotine dependence, cigarettes, uncomplicated; F14.10 Cocaine abuse, uncomplicated; F19.90 Other psychoactive substance use, unspecified, uncomplicated
CPT/HCPCS: 99283

== ENCOUNTER 2020-11-20 16:40 | Emergency (ER) | payer MEDICARE, OTHER ==
[~2020-11-20] VITALS: Ht 182.9 cm; Wt 81.8 kg
[2020-11-20] MEDS ORDERED: HALOPERIDOL 5 MG TABLET PO ONE (17:30)
[2020-11-20 18:09] VITALS: BP 104/70
== END 2020-11-20 18:10 | disposition home or self-care (01) ==
LOC: EMS 16:40
DX: F20.9 Schizophrenia, unspecified (principal); F41.9 Anxiety disorder, unspecified; K21.9 Gastro-esophageal reflux disease without esophagitis; J44.9 Chronic obstructive pulmonary disease, unspecified; F17.210 Nicotine dependence, cigarettes, uncomplicated; F14.90 Cocaine use, unspecified, uncomplicated; F12.90 Cannabis use, unspecified, uncomplicated; F19.90 Other psychoactive substance use, unspecified, uncomplicated; Z76.0 Encounter for issue of repeat prescription
CPT/HCPCS: 99281; 99283

== ENCOUNTER 2020-11-30 13:08 | Emergency (ER) | payer MEDICARE, OTHER ==
[~2020-11-30] VITALS: Ht 180.3 cm; Wt 86.4 kg
[2020-11-30 14:31] VITALS: BP 122/62
== END 2020-12-01 | disposition home or self-care (01) ==
LOC: EMS 12-01 13:46
DX: F25.9 Schizoaffective disorder, unspecified (principal)
CPT/HCPCS: 99284; Z7502

== ENCOUNTER 2020-12-05 00:17 | Emergency (ER) | payer MEDICARE, OTHER ==
[~2020-12-05] VITALS: Ht 180.3 cm; Wt 81.8 kg
[2020-12-05 01:06] VITALS: BP 148/68
== END 2020-12-05 04:00 | disposition left against medical advice (07) ==
LOC: EMS 00:26
DX: F41.9 Anxiety disorder, unspecified (principal); Z53.21 Procedure and treatment not carried out due to patient leaving prior to being seen by health care provider

== ENCOUNTER 2020-12-06 14:34 | Emergency (ER) | payer MEDICARE, OTHER ==
[~2020-12-06] VITALS: Ht 180.3 cm; Wt 84.1 kg
[2020-12-06] MEDS ORDERED: HydrOXYzine PAMOATE 50 MG CAPSULE PO ONE (15:45)
[2020-12-06 16:58] VITALS: BP 128/81
== END 2020-12-06 16:55 | disposition home or self-care (01) ==
LOC: EMS 14:47
DX: F15.10 Other stimulant abuse, uncomplicated (principal); F41.9 Anxiety disorder, unspecified; F20.9 Schizophrenia, unspecified; F31.9 Bipolar disorder, unspecified; J44.9 Chronic obstructive pulmonary disease, unspecified; K21.9 Gastro-esophageal reflux disease without esophagitis; F17.210 Nicotine dependence, cigarettes, uncomplicated; F14.90 Cocaine use, unspecified, uncomplicated; F12.90 Cannabis use, unspecified, uncomplicated
CPT/HCPCS: 99283

== ENCOUNTER 2020-12-11 12:14 | Emergency (ER) | payer MEDICARE, OTHER ==
[~2020-12-11] VITALS: Ht 180.3 cm; Wt 84.9 kg
[2020-12-11 12:16] VITALS: BP 115/74
[2020-12-11] MEDS ORDERED: HydrOXYzine PAMOATE 50 MG CAPSULE PO ONE (13:15)
== END 2020-12-11 13:35 | disposition home or self-care (01) ==
LOC: EMS 12:16
DX: F15.10 Other stimulant abuse, uncomplicated (principal); F22 Delusional disorders; J45.909 Unspecified asthma, uncomplicated; F41.9 Anxiety disorder, unspecified; F31.9 Bipolar disorder, unspecified; K21.9 Gastro-esophageal reflux disease without esophagitis; F20.9 Schizophrenia, unspecified; F17.210 Nicotine dependence, cigarettes, uncomplicated; F14.90 Cocaine use, unspecified, uncomplicated; F12.90 Cannabis use, unspecified, uncomplicated
CPT/HCPCS: 99283

== ENCOUNTER 2020-12-14 22:51 | Emergency (ER) | payer MEDICARE, OTHER ==
[~2020-12-14] VITALS: Ht 180.3 cm; Wt 84.1 kg
[2020-12-15 00:58] VITALS: BP 132/84
[2020-12-15] MEDS ORDERED: OLANZapine 5 MG TABLET PO ONE (02:15)
== END 2020-12-15 02:28 | disposition home or self-care (01) ==
LOC: EMS 22:51
DX: F25.9 Schizoaffective disorder, unspecified (principal); J44.9 Chronic obstructive pulmonary disease, unspecified; F15.10 Other stimulant abuse, uncomplicated; F32.9 Major depressive disorder, single episode, unspecified; F17.210 Nicotine dependence, cigarettes, uncomplicated; F12.90 Cannabis use, unspecified, uncomplicated; Z79.899 Other long term (current) drug therapy
CPT/HCPCS: 99284; Z7502; Z7610

== ENCOUNTER 2020-12-18 19:55 | Emergency (ER) | payer MEDICARE, OTHER ==
[~2020-12-18] VITALS: Ht 180.3 cm; Wt 86.4 kg
[2020-12-18 22:37] LABS: COVID AG,FIA SOURCE NASOPHARYNGEAL
[2020-12-18] MEDS ORDERED: DEXAMETHASONE SOD PHOS 4 MG/ML 5 ML VIAL IM ONE (22:45)
[2020-12-18] MEDS ORDERED: OLANZapine 5 MG TABLET PO ONE (22:45)
[2020-12-18] MEDS ORDERED: ALBUTEROL SULFATE HFA 90 MCG/PUFF 8 GM INHALER IH ONE (22:45)
[2020-12-18 23:24] VITALS: BP 112/66
== END 2020-12-18 23:20 | disposition home or self-care (01) ==
LOC: EMS 20:03
DX: J45.909 Unspecified asthma, uncomplicated (principal); Z20.822 Contact with and (suspected) exposure to COVID-19
CPT/HCPCS: 71045; 87426; 94640; 96372; 99284; J1100; U0003; J3535

== ENCOUNTER 2020-12-24 19:55 | Emergency (ER) | payer MEDICARE, OTHER ==
[~2020-12-24] VITALS: Ht 180.3 cm; Wt 90.0 kg
[2020-12-24 20:05] VITALS: BP 127/86
== END 2020-12-25 00:30 | disposition left against medical advice (07) ==
LOC: EMS 19:58
DX: R45.851 Suicidal ideations (principal); Z53.21 Procedure and treatment not carried out due to patient leaving prior to being seen by health care provider

== ENCOUNTER 2020-12-25 10:54 | Emergency (ER) | payer MEDICARE, OTHER ==
[~2020-12-25] VITALS: Ht 182.9 cm; Wt 86.4 kg
[2020-12-25 10:55] VITALS: BP 113/72
[2020-12-25] MEDS ORDERED: HALOPERIDOL 5 MG TABLET PO ONE (13:15)
== END 2020-12-25 13:38 | disposition home or self-care (01) ==
LOC: EMS 10:54
DX: F15.10 Other stimulant abuse, uncomplicated (principal); F25.9 Schizoaffective disorder, unspecified; F41.9 Anxiety disorder, unspecified; J45.909 Unspecified asthma, uncomplicated; F31.9 Bipolar disorder, unspecified; K21.9 Gastro-esophageal reflux disease without esophagitis; F17.210 Nicotine dependence, cigarettes, uncomplicated; F14.90 Cocaine use, unspecified, uncomplicated; F12.90 Cannabis use, unspecified, uncomplicated
CPT/HCPCS: 99283; 99284

== ENCOUNTER 2020-12-26 13:56 | Emergency (ER) | payer MEDICARE, OTHER ==
[~2020-12-26] VITALS: Ht 180.3 cm; Wt 87.0 kg
[2020-12-26] MEDS ORDERED: BENZONATATE 100 MG CAPSULE PO ONE (14:45)
[2020-12-26 15:08] LABS: COVID AG,FIA SOURCE NASOPHARYNGEAL
[2020-12-26] MEDS ORDERED: IPRATROPIUM BROMIDE 0.5 MG/2.5 ML NEB SOLUTION NEB ONE (16:00)
[2020-12-26] MEDS ORDERED: ALBUTEROL SULFATE 5 MG/ML 20 ML NEB SOLN [BULK] NEB ONE (16:00)
[2020-12-26 17:48] VITALS: BP 110/74
== END 2020-12-26 17:49 | disposition home or self-care (01) ==
LOC: EMS 13:58
DX: J45.909 Unspecified asthma, uncomplicated (principal); Z20.822 Contact with and (suspected) exposure to COVID-19
CPT/HCPCS: 71045; 94644; 99285; J7611

== ENCOUNTER 2020-12-26 18:55 | Emergency (ER) | payer MEDICARE, OTHER ==
[~2020-12-26] VITALS: Ht 182.9 cm; Wt 72.7 kg
[2020-12-26] MEDS ORDERED: LORazepam 1 MG TABLET PO ONE (21:00)
[2020-12-26] MEDS ORDERED: HALOPERIDOL 5 MG TABLET PO ONE (21:00)
[2020-12-26] MEDS ORDERED: ACETAMINOPHEN 500 MG TABLET PO ONE (21:15)
[2020-12-26] MEDS ORDERED: IBUPROFEN 600 MG TABLET PO ONE (21:45)
[2020-12-26] MEDS ORDERED: SODIUM CHLORIDE 0.9% 1,000 ML IV ONE ×2 (21:45→22:45)
[2020-12-26 22:06] LABS: BASOPHILS % (AUTO) 0.4 % (0.0-2.0); EOSINOPHILS % (AUTO) 0.1 % (1.0-6.0); HEMOGLOBIN 13.8 g/dL (13.5-17.5); LYMPHOCYTES # (AUTO) 1.1 K/uL (1.0-4.8); LYMPHOCYTES % (AUTO) 4.9 % (22.0-44.0); MEAN CORPUSCULAR HEMOGLOBIN 30.3 pg (26.0-34.0); MEAN CORPUSCULAR HGB CONC 33.5 G/dL (31.0-37.0); MEAN CORPUSCULAR VOLUME 90 fL (80-100); MONOCYTES # (AUTO) 1.5 K/uL (0.1-1.0); MONOCYTES % (AUTO) 6.4 % (2.0-9.0); NEUTROPHILS # (AUTO) 20.4 K/uL (1.8-7.7); PLATELET COUNT (AUTO) 290 K/uL (150-450); RED BLOOD CELL COUNT(AUTO) 4.54 MIL/uL (4.50-5.90); RED CELL DISTRIBUTION WIDTH 13.3 % (11.5-14.5)
[2020-12-26 22:07] LABS: NEUTROPHILS % (AUTO) 88.2 % (40.0-70.0)
[2020-12-26 22:27] LABS: LACTIC ACID 3.2 mmol/L (0.4-2.0)
[2020-12-26 22:43] LABS: ANION GAP 13 mmol/L (8-16); CALCIUM, TOTAL 8.5 mg/dL (8.8-10.5); CARBON DIOXIDE 21 mmol/L (22-29); CHLORIDE 103 mmol/L (98-107); CREATININE 0.91 mg/dL (0.60-1.30); GLOMERULAR FILTR. RATE CALC > 60 mL/min (>60); GLUCOSE,RANDOM 136 mg/dL (70-110); POTASSIUM 3.4 mmol/L (3.5-5.1); SODIUM SERUM 137 mmol/L (136-145); UREA NITROGEN, BLOOD 7 mg/dL (7-18)
[2020-12-26 22:49] LABS: ALANINE AMINOTRANSFERASE 21 U/L (12-78); ALBUMIN 3.5 g/dL (3.4-5.0); ALKALINE PHOSPHATASE 93 U/L (46-116); ASPARTATE AMINOTRANSFERASE 11 U/L (15-37); BILIRUBIN,TOTAL 0.4 mg/dL (0.1-1.0); TOTAL PROTEIN, SERUM 6.5 g/dL (6.4-8.2)
[2020-12-27] MEDS ORDERED: ALBUTEROL SULFATE 5 MG/ML 20 ML NEB SOLN [BULK] NEB ONE (01:45)
[2020-12-27] MEDS ORDERED: IPRATROPIUM BROMIDE 0.5 MG/2.5 ML NEB SOLUTION NEB ONE ×2 (01:45)
[2020-12-27] MEDS ORDERED: ALBUTEROL SULFATE 2.5 MG/0.5 ML NEB SOLUTION NEB ONE (01:45)
[2020-12-27 01:53] LABS: APPEARANCE,URINE CLEAR (CLEAR); BILIRUBIN,URINE NEGATIVE (NEGATIVE); GLUCOSE, URINE (UA) NEGATIVE (NEGATIVE); KETONES,URINE NEGATIVE (NEGATIVE); LEUKOCYTE ESTERASE ,URINE NEGATIVE (NEGATIVE); NITRATE,URINE NEGATIVE (NEGATIVE); OCCULT BLOOD,URINE NEGATIVE (NEGATIVE); PROTEIN,URINE NEGATIVE (NEGATIVE); UROBILINOGEN,URINE 0.2 mg/dL (<=1.0)
[2020-12-27 01:58] LABS: AMPHET/METH SCREEN,URINE NEGATIVE (NEGATIVE); BARBITURATE SCREEN, URINE NEGATIVE (NEGATIVE); BENZODIAZEPINES SCREEN,URINE NEGATIVE (NEGATIVE); CANNABINOID SCREEN,URINE NEGATIVE (NEGATIVE); COCAINE SCREEN,URINE NEGATIVE (NEGATIVE); METHADONE SCREEN, URINE NEGATIVE (NEGATIVE); OPIATE SCREEN,URINE NEGATIVE (NEGATIVE)
[2020-12-27 02:08] LABS: PHENCYCLIDINE SCREEN,URINE NEGATIVE (NEGATIVE)
[2020-12-27 02:12] LABS: BACTERIA,URINE None Seen /HPF (None Seen); RBC,URINE 0-2 /HPF (0-2); WBC,URINE 0-2 /HPF (0-5)
[2020-12-27] MEDS ORDERED: POTASSIUM CHLORIDE 20 MEQ ER TABLET PO ONE (03:00)
[2020-12-27 03:08] VITALS: BP 114/72
== END 2020-12-27 03:10 | disposition home or self-care (01) ==
LOC: EMS 18:55
DX: F15.959 Other stimulant use, unspecified with stimulant-induced psychotic disorder, unspecified (principal); F31.9 Bipolar disorder, unspecified; F20.9 Schizophrenia, unspecified; J45.909 Unspecified asthma, uncomplicated; F41.9 Anxiety disorder, unspecified; F17.210 Nicotine dependence, cigarettes, uncomplicated; F14.90 Cocaine use, unspecified, uncomplicated; F12.90 Cannabis use, unspecified, uncomplicated; Z79.899 Other long term (current) drug therapy
CPT/HCPCS: 36415; 71046; 80053; 80307; 81001; 83605; 85025; 94640; 96360; 96361; 99291; J7030

== ENCOUNTER → 2020-12-29 | Emergency (ER) | payer MEDICARE, OTHER ==
[~2020-12-29] VITALS: Ht 180.3 cm; Wt 72.7 kg
[2020-12-29 19:18] VITALS: BP 136/87
== END | disposition home or self-care (01) ==
LOC: EMS 16:20
DX: R45.851 Suicidal ideations (principal); Z53.21 Procedure and treatment not carried out due to patient leaving prior to being seen by health care provider

== ENCOUNTER 2021-01-05 12:49 | Emergency (ER) | payer MEDICARE, OTHER ==
[~2021-01-05] VITALS: Ht 180.3 cm; Wt 86.4 kg
[2021-01-05] MEDS ORDERED: BENZTROPINE MESYLATE 2 MG TABLET PO ONE (14:15)
[2021-01-05] MEDS ORDERED: HALOPERIDOL 5 MG TABLET PO ONE (14:15)
[2021-01-05 15:30] VITALS: BP 125/70
== END 2021-01-05 15:38 | disposition home or self-care (01) ==
LOC: EMS 13:03
DX: F31.9 Bipolar disorder, unspecified (principal); F15.10 Other stimulant abuse, uncomplicated; F41.9 Anxiety disorder, unspecified; J45.909 Unspecified asthma, uncomplicated; K21.9 Gastro-esophageal reflux disease without esophagitis; F20.9 Schizophrenia, unspecified; F17.210 Nicotine dependence, cigarettes, uncomplicated; F12.90 Cannabis use, unspecified, uncomplicated; F14.90 Cocaine use, unspecified, uncomplicated; Z76.0 Encounter for issue of repeat prescription
CPT/HCPCS: 99283

== ENCOUNTER 2021-01-07 18:26 | Emergency (ER) | payer MEDICARE, OTHER ==
[~2021-01-07] VITALS: Ht 180.3 cm; Wt 79.5 kg
[2021-01-07 18:39] VITALS: BP 115/52
[2021-01-07] MEDS ORDERED: HALOPERIDOL 5 MG TABLET PO ONE (19:30)
[2021-01-07] MEDS ORDERED: BENZTROPINE MESYLATE 2 MG TABLET PO ONE (19:30)
== END 2021-01-07 19:43 | disposition home or self-care (01) ==
LOC: EMS 18:30
DX: F25.9 Schizoaffective disorder, unspecified (principal); F41.9 Anxiety disorder, unspecified; J45.909 Unspecified asthma, uncomplicated; F31.9 Bipolar disorder, unspecified; K21.9 Gastro-esophageal reflux disease without esophagitis; F17.210 Nicotine dependence, cigarettes, uncomplicated; F14.90 Cocaine use, unspecified, uncomplicated; F12.90 Cannabis use, unspecified, uncomplicated; F19.90 Other psychoactive substance use, unspecified, uncomplicated
CPT/HCPCS: 99283

== ENCOUNTER 2021-01-08 15:49 | Emergency (ER) | payer MEDICARE, OTHER ==
[~2021-01-08] VITALS: Ht 180.3 cm; Wt 79.5 kg
[2021-01-08 15:51] VITALS: BP 118/61
[2021-01-08 17:17] LABS: BASOPHILS % (AUTO) 0.4 % (0.0-2.0); EOSINOPHILS % (AUTO) 1.1 % (1.0-6.0); HEMATOCRIT 43.5 % (41-53); HEMOGLOBIN 14.5 g/dL (13.5-17.5); LYMPHOCYTES # (AUTO) 1.8 K/uL (1.0-4.8); LYMPHOCYTES % (AUTO) 11.6 % (22.0-44.0); MEAN CORPUSCULAR HEMOGLOBIN 30.3 pg (26.0-34.0); MEAN CORPUSCULAR HGB CONC 33.4 G/dL (31.0-37.0); MEAN CORPUSCULAR VOLUME 91 fL (80-100); MONOCYTES # (AUTO) 0.7 K/uL (0.1-1.0); MONOCYTES % (AUTO) 4.3 % (2.0-9.0); NEUTROPHILS # (AUTO) 12.6 K/uL (1.8-7.7); NEUTROPHILS % (AUTO) 82.6 % (40.0-70.0); PLATELET COUNT (AUTO) 440 K/uL (150-450); RED BLOOD CELL COUNT(AUTO) 4.79 MIL/uL (4.50-5.90); RED CELL DISTRIBUTION WIDTH 13.4 % (11.5-14.5)
[2021-01-08 17:33] LABS: ANION GAP 13 mmol/L (8-16); CARBON DIOXIDE 22 mmol/L (22-29); CHLORIDE 106 mmol/L (98-107); CREATININE 0.85 mg/dL (0.60-1.30); GLOMERULAR FILTR. RATE CALC > 60 mL/min (>60); GLUCOSE,RANDOM 123 mg/dL (70-110); POTASSIUM 3.7 mmol/L (3.5-5.1); SODIUM SERUM 141 mmol/L (136-145); UREA NITROGEN, BLOOD 6 mg/dL (7-18)
[2021-01-08 17:39] LABS: ALANINE AMINOTRANSFERASE 26 U/L (12-78); ALBUMIN 3.7 g/dL (3.4-5.0); ALKALINE PHOSPHATASE 93 U/L (46-116); ASPARTATE AMINOTRANSFERASE 11 U/L (15-37); BILIRUBIN,TOTAL 0.2 mg/dL (0.1-1.0); TOTAL PROTEIN, SERUM 6.8 g/dL (6.4-8.2)
== END 2021-01-08 17:52 | disposition home or self-care (01) ==
LOC: EMS 15:52
DX: F31.9 Bipolar disorder, unspecified (principal); R45.851 Suicidal ideations; J45.909 Unspecified asthma, uncomplicated; F17.210 Nicotine dependence, cigarettes, uncomplicated; F15.10 Other stimulant abuse, uncomplicated; Z98.890 Other specified postprocedural states
CPT/HCPCS: 36415; 80053; 85025; 99283; G0480

== ENCOUNTER 2021-01-11 15:10 | Emergency (ER) | payer MEDICARE, OTHER ==
[~2021-01-11] VITALS: Ht 180.3 cm; Wt 86.4 kg
[2021-01-11] MEDS ORDERED: HALOPERIDOL 5 MG TABLET PO ONE (17:45)
[2021-01-11] MEDS ORDERED: LORazepam 1 MG TABLET PO ONE (17:45)
[2021-01-11 19:00] VITALS: BP 113/71
== END 2021-01-11 19:22 | disposition home or self-care (01) ==
LOC: EMS 15:28
DX: F20.9 Schizophrenia, unspecified (principal); F41.9 Anxiety disorder, unspecified; F31.9 Bipolar disorder, unspecified; J45.909 Unspecified asthma, uncomplicated; K21.9 Gastro-esophageal reflux disease without esophagitis; F17.210 Nicotine dependence, cigarettes, uncomplicated; F14.90 Cocaine use, unspecified, uncomplicated; F12.90 Cannabis use, unspecified, uncomplicated; F19.90 Other psychoactive substance use, unspecified, uncomplicated
CPT/HCPCS: 99284; Z7502; Z7610

== ENCOUNTER 2021-01-12 21:12 | Emergency (ER) | payer MEDICARE, OTHER ==
[~2021-01-12] VITALS: Ht 180.3 cm; Wt 86.4 kg
[2021-01-12 22:45] VITALS: BP 111/68
[2021-01-12] MEDS ORDERED: HALOPERIDOL 5 MG TABLET PO ONE (22:45)
[2021-01-12] MEDS ORDERED: DiphenhydrAMINE HCL 25 MG CAPSULE PO ONE (22:45)
[2021-01-12] MEDS ORDERED: LORazepam 1 MG TABLET PO ONE (22:45)
== END 2021-01-12 23:00 | disposition home or self-care (01) ==
LOC: EMS 21:15
DX: F41.9 Anxiety disorder, unspecified (principal); F15.10 Other stimulant abuse, uncomplicated; J45.909 Unspecified asthma, uncomplicated; F31.9 Bipolar disorder, unspecified; K21.9 Gastro-esophageal reflux disease without esophagitis; F20.9 Schizophrenia, unspecified; F17.210 Nicotine dependence, cigarettes, uncomplicated; F14.90 Cocaine use, unspecified, uncomplicated; F12.90 Cannabis use, unspecified, uncomplicated
CPT/HCPCS: 99284; Z7502; Z7610

== ENCOUNTER 2021-01-14 14:56 | Emergency (ER) | payer MEDICARE, OTHER ==
[~2021-01-14] VITALS: Ht 180.3 cm; Wt 86.4 kg
[2021-01-14 15:18] VITALS: BP 112/77
== END 2021-01-14 16:42 | disposition left against medical advice (07) ==
LOC: EMS 15:00
DX: F15.10 Other stimulant abuse, uncomplicated (principal); F41.9 Anxiety disorder, unspecified; J45.909 Unspecified asthma, uncomplicated; F31.9 Bipolar disorder, unspecified; K21.9 Gastro-esophageal reflux disease without esophagitis; F20.9 Schizophrenia, unspecified; F14.90 Cocaine use, unspecified, uncomplicated; F12.90 Cannabis use, unspecified, uncomplicated
CPT/HCPCS: 99281; Z7502

== ENCOUNTER 2021-01-15 17:59 | Emergency (ER) | payer MEDICARE, OTHER ==
[~2021-01-15] VITALS: Ht 180.3 cm; Wt 86.4 kg
[2021-01-15 18:06] VITALS: BP 116/78
== END 2021-01-15 19:45 | disposition left against medical advice (07) ==
LOC: EMS 18:02
DX: R45.851 Suicidal ideations (principal); Z53.21 Procedure and treatment not carried out due to patient leaving prior to being seen by health care provider

== ENCOUNTER 2021-01-16 14:16 | Emergency (ER) | payer MEDICARE, OTHER ==
[~2021-01-16] VITALS: Ht 180.3 cm; Wt 86.4 kg
[2021-01-16 17:01] VITALS: BP 132/74
== END 2021-01-16 19:06 | disposition home or self-care (01) ==
LOC: EMS 14:23
DX: F20.9 Schizophrenia, unspecified (principal); F15.10 Other stimulant abuse, uncomplicated; F17.210 Nicotine dependence, cigarettes, uncomplicated; F14.90 Cocaine use, unspecified, uncomplicated; F12.90 Cannabis use, unspecified, uncomplicated; J45.909 Unspecified asthma, uncomplicated; Z79.899 Other long term (current) drug therapy
CPT/HCPCS: 99284; Z7502

== ENCOUNTER 2021-01-18 22:14 | Emergency (ER) | payer MEDICARE, OTHER ==
[~2021-01-18] VITALS: Ht 180.3 cm; Wt 86.4 kg
[2021-01-18 23:00] VITALS: BP 110/67
[2021-01-18] MEDS ORDERED: LORazepam 1 MG TABLET PO ONE (23:00)
== END 2021-01-19 00:31 | disposition home or self-care (01) ==
LOC: EMS 22:15
DX: F41.9 Anxiety disorder, unspecified (principal); F15.10 Other stimulant abuse, uncomplicated; J45.909 Unspecified asthma, uncomplicated; F31.9 Bipolar disorder, unspecified; K21.9 Gastro-esophageal reflux disease without esophagitis; F20.9 Schizophrenia, unspecified; F17.210 Nicotine dependence, cigarettes, uncomplicated; F14.90 Cocaine use, unspecified, uncomplicated; F12.90 Cannabis use, unspecified, uncomplicated
CPT/HCPCS: 99283

== ENCOUNTER 2021-01-19 16:40 | Emergency (ER) | payer MEDICARE, OTHER ==
[~2021-01-19] VITALS: Ht 180.3 cm; Wt 86.4 kg
[2021-01-19 16:47] VITALS: BP 114/63
== END 2021-01-19 20:41 | disposition left against medical advice (07) ==
LOC: EMS 16:44
DX: F25.9 Schizoaffective disorder, unspecified (principal); F15.10 Other stimulant abuse, uncomplicated; F41.9 Anxiety disorder, unspecified; J45.909 Unspecified asthma, uncomplicated; F31.9 Bipolar disorder, unspecified; K21.9 Gastro-esophageal reflux disease without esophagitis; F14.90 Cocaine use, unspecified, uncomplicated; F19.90 Other psychoactive substance use, unspecified, uncomplicated
CPT/HCPCS: 99281; Z7502

== ENCOUNTER 2021-01-22 13:05 | Emergency (ER) | payer MEDICARE, OTHER ==
[~2021-01-22] VITALS: Ht 182.9 cm; Wt 81.8 kg
[2021-01-22 13:18] VITALS: BP 121/64
[2021-01-22] MEDS ORDERED: DiphenhydrAMINE HCL 25 MG CAPSULE PO ONE (14:15)
[2021-01-22] MEDS ORDERED: HALOPERIDOL 5 MG TABLET PO ONE (14:15)
== END 2021-01-22 14:17 | disposition home or self-care (01) ==
LOC: EMS 13:16
DX: F25.9 Schizoaffective disorder, unspecified (principal); F17.210 Nicotine dependence, cigarettes, uncomplicated; F32.9 Major depressive disorder, single episode, unspecified; J45.909 Unspecified asthma, uncomplicated; K21.9 Gastro-esophageal reflux disease without esophagitis; Z79.899 Other long term (current) drug therapy
CPT/HCPCS: 99284; Z7502; Z7610

== ENCOUNTER 2021-01-27 14:33 | Emergency (ER) | payer MEDICARE, OTHER ==
[~2021-01-27] VITALS: Ht 180.3 cm; Wt 86.4 kg
[2021-01-27] MEDS ORDERED: HALOPERIDOL 5 MG TABLET PO ONE (14:45)
[2021-01-27] MEDS ORDERED: LORazepam 1 MG TABLET PO ONE (14:45)
[2021-01-27 14:50] VITALS: BP 111/57
== END 2021-01-27 16:39 | disposition home or self-care (01) ==
LOC: EMS 14:33
DX: F31.9 Bipolar disorder, unspecified (principal); F41.9 Anxiety disorder, unspecified; F20.9 Schizophrenia, unspecified; K21.9 Gastro-esophageal reflux disease without esophagitis; F14.90 Cocaine use, unspecified, uncomplicated; F12.90 Cannabis use, unspecified, uncomplicated; F19.90 Other psychoactive substance use, unspecified, uncomplicated; F17.210 Nicotine dependence, cigarettes, uncomplicated
CPT/HCPCS: 99283; 99284

== ENCOUNTER 2021-01-31 13:55 | Emergency (ER) | payer MEDICARE, OTHER ==
[~2021-01-31] VITALS: Ht 180.3 cm; Wt 86.4 kg
[2021-01-31 14:07] VITALS: BP 113/83
== END 2021-01-31 16:17 | disposition left against medical advice (07) ==
LOC: EMS 14:05
DX: R45.851 Suicidal ideations (principal); Z53.21 Procedure and treatment not carried out due to patient leaving prior to being seen by health care provider

== ENCOUNTER 2021-02-03 02:01 | Emergency (ER) | payer MEDICARE, OTHER ==
[~2021-02-03] VITALS: Ht 180.3 cm; Wt 86.4 kg
[2021-02-03 02:09] VITALS: BP 144/73
== END 2021-02-03 03:39 | disposition left against medical advice (07) ==
LOC: EMS 02:05
DX: R46.89 Other symptoms and signs involving appearance and behavior (principal); Z53.21 Procedure and treatment not carried out due to patient leaving prior to being seen by health care provider

== ENCOUNTER 2021-02-06 20:21 | Emergency (ER) | payer MEDICARE, OTHER ==
[~2021-02-06] VITALS: Ht 180.3 cm; Wt 86.4 kg
[2021-02-06 20:36] VITALS: BP 114/66
== END 2021-02-06 21:15 | disposition home or self-care (01) ==
LOC: EMS 20:31
DX: F41.9 Anxiety disorder, unspecified (principal); F31.9 Bipolar disorder, unspecified; J45.909 Unspecified asthma, uncomplicated; K21.9 Gastro-esophageal reflux disease without esophagitis; F20.9 Schizophrenia, unspecified; F17.210 Nicotine dependence, cigarettes, uncomplicated; F14.90 Cocaine use, unspecified, uncomplicated; F12.90 Cannabis use, unspecified, uncomplicated; F19.90 Other psychoactive substance use, unspecified, uncomplicated
CPT/HCPCS: 99281; 99283

== ENCOUNTER 2021-02-15 17:20 | Emergency (ER) | payer MEDICARE, OTHER ==
[~2021-02-15] VITALS: Ht 180.3 cm; Wt 91.8 kg
[2021-02-15 17:36] VITALS: BP 115/68
== END 2021-02-15 19:27 | disposition home or self-care (01) ==
LOC: EMS 17:26
DX: F25.9 Schizoaffective disorder, unspecified (principal); F17.210 Nicotine dependence, cigarettes, uncomplicated; F12.90 Cannabis use, unspecified, uncomplicated; F15.90 Other stimulant use, unspecified, uncomplicated; F31.9 Bipolar disorder, unspecified
CPT/HCPCS: 99284; Z7502

== ENCOUNTER 2021-02-18 12:05 | Emergency (ER) | payer MEDICARE, OTHER ==
[~2021-02-18] VITALS: Ht 182.9 cm; Wt 90.0 kg
[2021-02-18] MEDS ORDERED: LORazepam 2 MG TABLET PO ONE (12:30)
[2021-02-18 14:05] VITALS: BP 121/72
== END 2021-02-18 14:15 | disposition home or self-care (01) ==
LOC: EMS 12:05
DX: F15.10 Other stimulant abuse, uncomplicated (principal); J45.909 Unspecified asthma, uncomplicated; F31.9 Bipolar disorder, unspecified; F20.9 Schizophrenia, unspecified; F17.210 Nicotine dependence, cigarettes, uncomplicated; F12.90 Cannabis use, unspecified, uncomplicated
CPT/HCPCS: 99283

== ENCOUNTER 2021-02-19 16:15 | Emergency (ER) | payer MEDICARE, OTHER ==
[~2021-02-19] VITALS: Ht 180.3 cm; Wt 90.9 kg
[2021-02-19 16:17] VITALS: BP 107/63
== END 2021-02-19 18:38 | disposition left against medical advice (07) ==
LOC: EMS 16:18
DX: Z00.8 Encounter for other general examination (principal); Z53.21 Procedure and treatment not carried out due to patient leaving prior to being seen by health care provider

== ENCOUNTER 2021-02-22 09:45 | Emergency (ER) | payer MEDICARE, OTHER ==
[~2021-02-22] VITALS: Ht 180.3 cm; Wt 90.0 kg
[2021-02-22 10:09] VITALS: BP 115/84
== END 2021-02-22 10:50 | disposition home or self-care (01) ==
LOC: EMS 09:51
DX: F24 Shared psychotic disorder (principal); J45.909 Unspecified asthma, uncomplicated; F41.9 Anxiety disorder, unspecified; F17.210 Nicotine dependence, cigarettes, uncomplicated; F12.90 Cannabis use, unspecified, uncomplicated; F15.90 Other stimulant use, unspecified, uncomplicated; Z79.899 Other long term (current) drug therapy
CPT/HCPCS: 99281; Z7502

== ENCOUNTER 2021-02-22 18:52 | Emergency (ER) | payer MEDICARE, OTHER ==
[~2021-02-22] VITALS: Ht 180.3 cm; Wt 100.0 kg
[2021-02-22 19:09] VITALS: BP 105/61
== END 2021-02-22 21:00 | disposition left against medical advice (07) ==
LOC: EMS 18:52
DX: R45.851 Suicidal ideations (principal); Z53.21 Procedure and treatment not carried out due to patient leaving prior to being seen by health care provider

== ENCOUNTER 2021-02-24 03:17 | Emergency (ER) | payer MEDICARE, OTHER ==
[~2021-02-24] VITALS: Ht 180.3 cm; Wt 90.9 kg
[2021-02-24 03:26] VITALS: BP 112/72
[2021-02-24] MEDS ORDERED: LORazepam 2 MG TABLET PO ONE (04:00)
[2021-02-24] MEDS ORDERED: OLANZapine 5 MG TABLET PO ONE (04:00)
== END 2021-02-24 04:41 | disposition home or self-care (01) ==
LOC: EMS 03:21
DX: F20.9 Schizophrenia, unspecified (principal); F31.9 Bipolar disorder, unspecified; J45.909 Unspecified asthma, uncomplicated; F41.9 Anxiety disorder, unspecified; F17.210 Nicotine dependence, cigarettes, uncomplicated; F12.90 Cannabis use, unspecified, uncomplicated; F15.90 Other stimulant use, unspecified, uncomplicated; Z76.0 Encounter for issue of repeat prescription
CPT/HCPCS: 99283

== ENCOUNTER 2021-02-26 02:40 | Emergency (ER) | payer MEDICARE, OTHER ==
[~2021-02-26] VITALS: Ht 177.8 cm; Wt 85.0 kg
[2021-02-26 02:45] VITALS: BP 127/77
== END 2021-02-26 05:00 | disposition left against medical advice (07) ==
LOC: EMS 02:42
DX: G47.9 Sleep disorder, unspecified (principal); Z53.21 Procedure and treatment not carried out due to patient leaving prior to being seen by health care provider

== ENCOUNTER 2021-02-28 17:59 | Emergency (ER) | payer MEDICARE, OTHER ==
[~2021-02-28] VITALS: Ht 180.3 cm; Wt 100.0 kg
[2021-02-28 18:01] VITALS: BP 124/72
== END 2021-02-28 20:38 | disposition left against medical advice (07) ==
LOC: EMS 18:01
DX: F41.9 Anxiety disorder, unspecified (principal); Z53.21 Procedure and treatment not carried out due to patient leaving prior to being seen by health care provider

== ENCOUNTER 2021-03-04 10:35 | Emergency (ER) | payer MEDICARE, OTHER ==
[~2021-03-04] VITALS: Ht 180.3 cm; Wt 90.0 kg
[2021-03-04] MEDS ORDERED: HALOPERIDOL 5 MG TABLET PO ONE (11:15)
[2021-03-04] MEDS ORDERED: LORazepam 1 MG TABLET PO ONE (11:15)
[2021-03-04 11:25] LABS: BASOPHILS % (AUTO) 0.5 % (0.0-2.0); EOSINOPHILS % (AUTO) 2.1 % (1.0-6.0); HEMATOCRIT 43.7 % (41-53); HEMOGLOBIN 14.9 g/dL (13.5-17.5); LYMPHOCYTES # (AUTO) 1.8 K/uL (1.0-4.8); LYMPHOCYTES % (AUTO) 17.7 % (22.0-44.0); MEAN CORPUSCULAR HEMOGLOBIN 30.6 pg (26.0-34.0); MEAN CORPUSCULAR HGB CONC 34.2 G/dL (31.0-37.0); MEAN CORPUSCULAR VOLUME 90 fL (80-100); MONOCYTES # (AUTO) 0.6 K/uL (0.1-1.0); MONOCYTES % (AUTO) 6.1 % (2.0-9.0); NEUTROPHILS # (AUTO) 7.5 K/uL (1.8-7.7); NEUTROPHILS % (AUTO) 73.6 % (40.0-70.0); PLATELET COUNT (AUTO) 287 K/uL (150-450); RED BLOOD CELL COUNT(AUTO) 4.88 MIL/uL (4.50-5.90); RED CELL DISTRIBUTION WIDTH 13.3 % (11.5-14.5)
[2021-03-04 11:36] LABS: AMPHET/METH SCREEN,URINE POSITIVE (NEGATIVE); BARBITURATE SCREEN, URINE NEGATIVE (NEGATIVE); BENZODIAZEPINES SCREEN,URINE NEGATIVE (NEGATIVE); CANNABINOID SCREEN,URINE NEGATIVE (NEGATIVE); COCAINE SCREEN,URINE NEGATIVE (NEGATIVE); METHADONE SCREEN, URINE NEGATIVE (NEGATIVE); OPIATE SCREEN,URINE NEGATIVE (NEGATIVE)
[2021-03-04 11:37] LABS: ANION GAP 9 mmol/L (8-16); CALCIUM, TOTAL 8.7 mg/dL (8.8-10.5); CARBON DIOXIDE 28 mmol/L (22-29); CHLORIDE 106 mmol/L (98-107); CREATININE 0.86 mg/dL (0.60-1.30); GLOMERULAR FILTR. RATE CALC > 60 mL/min (>60); GLUCOSE,RANDOM 96 mg/dL (70-110); POTASSIUM 4.3 mmol/L (3.5-5.1); SODIUM SERUM 143 mmol/L (136-145); UREA NITROGEN, BLOOD 13 mg/dL (7-18)
[2021-03-04 11:41] LABS: PHENCYCLIDINE SCREEN,URINE NEGATIVE (NEGATIVE)
[2021-03-04 11:42] LABS: ALANINE AMINOTRANSFERASE 21 U/L (12-78); ALBUMIN 3.7 g/dL (3.4-5.0); ALKALINE PHOSPHATASE 96 U/L (46-116); ASPARTATE AMINOTRANSFERASE 12 U/L (15-37); BILIRUBIN,TOTAL 0.4 mg/dL (0.1-1.0); TOTAL PROTEIN, SERUM 6.9 g/dL (6.4-8.2)
[2021-03-04 13:05] VITALS: BP 129/84
== END 2021-03-04 13:20 | disposition home or self-care (01) ==
LOC: EMS 10:35
DX: F25.9 Schizoaffective disorder, unspecified (principal); F15.90 Other stimulant use, unspecified, uncomplicated; F41.9 Anxiety disorder, unspecified; J45.909 Unspecified asthma, uncomplicated; F17.210 Nicotine dependence, cigarettes, uncomplicated; F31.9 Bipolar disorder, unspecified
CPT/HCPCS: 36415; 80053; 80307; 85025; 99283; G0480

== ENCOUNTER → 2021-03-06 | Emergency (ER) | payer MEDICARE, OTHER ==
[~2021-03-06] VITALS: Ht 180.3 cm; Wt 88.6 kg
[2021-03-06 19:10] VITALS: BP 110/78
== END | disposition home or self-care (01) ==
LOC: EMS 17:10
DX: F41.9 Anxiety disorder, unspecified (principal); F31.9 Bipolar disorder, unspecified; F20.9 Schizophrenia, unspecified; J45.909 Unspecified asthma, uncomplicated; F12.90 Cannabis use, unspecified, uncomplicated; F15.90 Other stimulant use, unspecified, uncomplicated; F17.210 Nicotine dependence, cigarettes, uncomplicated; Z79.899 Other long term (current) drug therapy
CPT/HCPCS: 99281; Z7502

== ENCOUNTER 2021-03-07 18:31 | Emergency (ER) | payer MEDICARE, OTHER ==
[~2021-03-07] VITALS: Ht 180.3 cm; Wt 88.6 kg
[2021-03-07 18:33] VITALS: BP 114/72
== END 2021-03-07 21:00 | disposition left against medical advice (07) ==
LOC: EMS 18:36
DX: F20.9 Schizophrenia, unspecified (principal); F15.90 Other stimulant use, unspecified, uncomplicated; F41.9 Anxiety disorder, unspecified; J45.909 Unspecified asthma, uncomplicated; F31.9 Bipolar disorder, unspecified; F17.210 Nicotine dependence, cigarettes, uncomplicated; F12.90 Cannabis use, unspecified, uncomplicated
CPT/HCPCS: 99281; Z7502

== ENCOUNTER 2021-03-11 22:44 | Emergency (ER) | payer MEDICARE, OTHER ==
[~2021-03-11] VITALS: Ht 180.3 cm; Wt 84.0 kg
[2021-03-11 23:00] VITALS: BP 135/77
[2021-03-11] MEDS ORDERED: LORazepam 1 MG TABLET PO ONE (23:15)
[2021-03-11] MEDS ORDERED: HALOPERIDOL 5 MG TABLET PO ONE (23:15)
== END 2021-03-11 23:48 | disposition home or self-care (01) ==
LOC: EMS 22:47
DX: F41.9 Anxiety disorder, unspecified (principal); F31.9 Bipolar disorder, unspecified; F20.9 Schizophrenia, unspecified; J45.909 Unspecified asthma, uncomplicated; Z76.0 Encounter for issue of repeat prescription
CPT/HCPCS: 99283

== ENCOUNTER 2021-03-18 12:53 | Emergency (ER) | payer MEDICARE, OTHER ==
[~2021-03-18] VITALS: Ht 180.3 cm; Wt 84.0 kg
[2021-03-18] MEDS ORDERED: LORazepam 1 MG TABLET PO ONE (13:30)
[2021-03-18] MEDS ORDERED: HALOPERIDOL 5 MG TABLET PO ONE (13:30)
[2021-03-18 13:46] VITALS: BP 127/86
== END 2021-03-18 13:56 | disposition home or self-care (01) ==
LOC: EMS 13:03
DX: F41.9 Anxiety disorder, unspecified (principal); F15.10 Other stimulant abuse, uncomplicated; J45.909 Unspecified asthma, uncomplicated; F31.9 Bipolar disorder, unspecified; F20.9 Schizophrenia, unspecified; F17.210 Nicotine dependence, cigarettes, uncomplicated; F12.90 Cannabis use, unspecified, uncomplicated
CPT/HCPCS: 99283

== ENCOUNTER 2021-03-19 21:32 | Emergency (ER) | payer MEDICARE, OTHER ==
[~2021-03-19] VITALS: Ht 180.3 cm; Wt 84.0 kg
[2021-03-19] MEDS ORDERED: LORazepam 2 MG TABLET PO ONE (21:45)
[2021-03-19] MEDS ORDERED: HALOPERIDOL 5 MG TABLET PO ONE (21:45)
[2021-03-19 21:48] VITALS: BP 119/70
== END 2021-03-19 22:04 | disposition home or self-care (01) ==
LOC: EMS 21:46
DX: F25.9 Schizoaffective disorder, unspecified (principal); F15.90 Other stimulant use, unspecified, uncomplicated
CPT/HCPCS: 99284; Z7502; Z7610

== ENCOUNTER 2021-03-22 13:35 | Emergency (ER) | payer MEDICARE, OTHER ==
[~2021-03-22] VITALS: Ht 180.3 cm; Wt 77.3 kg
[2021-03-22 13:43] VITALS: BP 118/76
== END 2021-03-22 15:47 | disposition left against medical advice (07) ==
LOC: EMS 13:40
DX: F15.10 Other stimulant abuse, uncomplicated (principal); F41.9 Anxiety disorder, unspecified; J45.909 Unspecified asthma, uncomplicated; F31.9 Bipolar disorder, unspecified; F20.9 Schizophrenia, unspecified; F17.210 Nicotine dependence, cigarettes, uncomplicated; F12.90 Cannabis use, unspecified, uncomplicated
CPT/HCPCS: 99281; Z7502

== ENCOUNTER 2021-03-27 10:25 | Emergency (ER) | payer MEDICARE, OTHER ==
[~2021-03-27] VITALS: Ht 180.3 cm; Wt 88.6 kg
[2021-03-27 10:27] VITALS: BP 115/71
[2021-03-27] MEDS ORDERED: HydrOXYzine PAMOATE 25 MG CAPSULE PO ONE (11:00)
== END 2021-03-27 11:38 | disposition home or self-care (01) ==
LOC: EMS 10:34
DX: F31.9 Bipolar disorder, unspecified (principal); F15.10 Other stimulant abuse, uncomplicated; F20.9 Schizophrenia, unspecified; F41.9 Anxiety disorder, unspecified; J45.909 Unspecified asthma, uncomplicated; F12.90 Cannabis use, unspecified, uncomplicated; F17.210 Nicotine dependence, cigarettes, uncomplicated; Z79.899 Other long term (current) drug therapy
CPT/HCPCS: 99283

== ENCOUNTER 2021-03-30 17:49 | Emergency (ER) | payer MEDICARE, OTHER ==
[~2021-03-30] VITALS: Ht 180.3 cm; Wt 88.6 kg
[2021-03-30 18:10] VITALS: BP 113/90
[2021-03-30 18:42] LABS: BASOPHILS % (AUTO) 0.4 % (0.0-2.0); EOSINOPHILS % (AUTO) 2.9 % (1.0-6.0); HEMATOCRIT 43.4 % (41-53); HEMOGLOBIN 14.4 g/dL (13.5-17.5); LYMPHOCYTES # (AUTO) 2.8 K/uL (1.0-4.8); LYMPHOCYTES % (AUTO) 16.5 % (22.0-44.0); MEAN CORPUSCULAR HEMOGLOBIN 30.1 pg (26.0-34.0); MEAN CORPUSCULAR HGB CONC 33.3 G/dL (31.0-37.0); MEAN CORPUSCULAR VOLUME 90 fL (80-100); MONOCYTES # (AUTO) 1.2 K/uL (0.1-1.0); MONOCYTES % (AUTO) 6.9 % (2.0-9.0); NEUTROPHILS # (AUTO) 12.5 K/uL (1.8-7.7); NEUTROPHILS % (AUTO) 73.3 % (40.0-70.0); PLATELET COUNT (AUTO) 339 K/uL (150-450); RED BLOOD CELL COUNT(AUTO) 4.81 MIL/uL (4.50-5.90); RED CELL DISTRIBUTION WIDTH 13.6 % (11.5-14.5)
[2021-03-30 18:51] LABS: ANION GAP 10 mmol/L (8-16); CALCIUM, TOTAL 9.1 mg/dL (8.8-10.5); CARBON DIOXIDE 27 mmol/L (22-29); CHLORIDE 105 mmol/L (98-107); CREATININE 0.93 mg/dL (0.60-1.30); GLOMERULAR FILTR. RATE CALC > 60 mL/min (>60); GLUCOSE,RANDOM 134 mg/dL (70-110); POTASSIUM 3.6 mmol/L (3.5-5.1); SODIUM SERUM 142 mmol/L (136-145); UREA NITROGEN, BLOOD 11 mg/dL (7-18)
[2021-03-30 18:58] LABS: ALANINE AMINOTRANSFERASE 36 U/L (12-78); ALBUMIN 4.2 g/dL (3.4-5.0); ALKALINE PHOSPHATASE 114 U/L (46-116); ASPARTATE AMINOTRANSFERASE 21 U/L (15-37); BILIRUBIN,TOTAL 0.2 mg/dL (0.1-1.0); TOTAL PROTEIN, SERUM 7.1 g/dL (6.4-8.2)
== END 2021-03-30 20:29 | disposition left against medical advice (07) ==
LOC: EMS 20:25
DX: Z04.6 Encounter for general psychiatric examination, requested by authority (principal); Z53.21 Procedure and treatment not carried out due to patient leaving prior to being seen by health care provider
CPT/HCPCS: 36415; 80053; 85025; G0480

== ENCOUNTER 2021-04-10 20:52 | Emergency (ER) | payer MEDICARE, OTHER ==
[~2021-04-10] VITALS: Ht 180.3 cm; Wt 90.9 kg
[2021-04-10 20:58] VITALS: BP 113/68
== END 2021-04-10 21:43 | disposition left against medical advice (07) ==
LOC: EMS 21:29
DX: R44.3 Hallucinations, unspecified (principal); Z53.21 Procedure and treatment not carried out due to patient leaving prior to being seen by health care provider

== ENCOUNTER 2021-04-12 14:04 | Emergency (ER) | payer MEDICARE, OTHER | END 2021-04-12 14:56 | disposition left against medical advice (07) | LOC: EMS 14:34 | DX: Z53.21 Procedure and treatment not carried out due to patient leaving prior to being seen by health care provider (principal) ==

== ENCOUNTER 2021-04-25 16:09 | Emergency (ER) | payer MEDICARE, OTHER ==
[~2021-04-25] VITALS: Ht 180.3 cm; Wt 90.9 kg
[2021-04-25 16:32] VITALS: BP 108/81
== END 2021-04-25 16:55 | disposition home or self-care (01) ==
LOC: EMS 16:16
DX: H11.32 Conjunctival hemorrhage, left eye (principal); F41.9 Anxiety disorder, unspecified; J45.909 Unspecified asthma, uncomplicated; F31.9 Bipolar disorder, unspecified; F20.9 Schizophrenia, unspecified; F17.210 Nicotine dependence, cigarettes, uncomplicated; F12.90 Cannabis use, unspecified, uncomplicated; F19.90 Other psychoactive substance use, unspecified, uncomplicated
CPT/HCPCS: 99281; Z7502

== ENCOUNTER 2021-05-11 12:01 | Emergency (ER) | payer MEDICARE, OTHER ==
[~2021-05-11] VITALS: Ht 180.3 cm; Wt 88.6 kg
[2021-05-11 12:12] VITALS: BP 130/80
== END 2021-05-11 12:32 | disposition home or self-care (01) ==
LOC: EMS 12:03
DX: F41.9 Anxiety disorder, unspecified (principal); F31.9 Bipolar disorder, unspecified; F20.9 Schizophrenia, unspecified; F17.210 Nicotine dependence, cigarettes, uncomplicated; F12.90 Cannabis use, unspecified, uncomplicated; F15.90 Other stimulant use, unspecified, uncomplicated; Z76.0 Encounter for issue of repeat prescription
CPT/HCPCS: 99281; 99283

== ENCOUNTER 2021-05-17 14:46 | Emergency (ER) | payer MEDICARE, OTHER ==
[~2021-05-17] VITALS: Ht 180.3 cm; Wt 95.5 kg
[2021-05-17 15:25] VITALS: BP 109/69
[2021-05-17] MEDS ORDERED: OLANZapine 5 MG TABLET PO ONE (15:30)
[2021-05-17] MEDS ORDERED: LORazepam 1 MG TABLET PO ONE (15:30)
== END 2021-05-17 16:11 | disposition home or self-care (01) ==
LOC: EMS 14:51
DX: F41.9 Anxiety disorder, unspecified (principal); F15.90 Other stimulant use, unspecified, uncomplicated; F31.9 Bipolar disorder, unspecified; J45.909 Unspecified asthma, uncomplicated; F12.90 Cannabis use, unspecified, uncomplicated; F17.210 Nicotine dependence, cigarettes, uncomplicated; Z79.899 Other long term (current) drug therapy
CPT/HCPCS: 99283

== ENCOUNTER 2021-05-19 06:18 | Emergency (ER) | payer MEDICARE, OTHER ==
[~2021-05-19] VITALS: Ht 180.3 cm; Wt 81.8 kg
[2021-05-19 06:35] VITALS: BP 120/75
[2021-05-19] MEDS ORDERED: HALOPERIDOL 5 MG TABLET PO ONE (07:00)
[2021-05-19] MEDS ORDERED: BENZTROPINE MESYLATE 2 MG TABLET PO ONE (07:00)
== END 2021-05-19 07:17 | disposition home or self-care (01) ==
LOC: EMS 06:22
DX: F15.10 Other stimulant abuse, uncomplicated (principal); F31.9 Bipolar disorder, unspecified; F41.9 Anxiety disorder, unspecified; J45.909 Unspecified asthma, uncomplicated; F20.9 Schizophrenia, unspecified; F12.90 Cannabis use, unspecified, uncomplicated; F17.210 Nicotine dependence, cigarettes, uncomplicated; Z79.899 Other long term (current) drug therapy
CPT/HCPCS: 99283

== ENCOUNTER 2021-05-25 19:30 | Emergency (ER) | payer MEDICARE, OTHER ==
[~2021-05-25] VITALS: Ht 180.3 cm; Wt 81.8 kg
[2021-05-25] MEDS ORDERED: BENZTROPINE MESYLATE 1 MG TABLET PO ONE (20:15)
[2021-05-25] MEDS ORDERED: HALOPERIDOL 5 MG TABLET PO ONE (20:15)
[2021-05-25] MEDS ORDERED: LORazepam 1 MG TABLET PO ONE (20:15)
[2021-05-25 21:33] VITALS: BP 125/65
== END 2021-05-25 21:40 | disposition home or self-care (01) ==
LOC: EMS 19:33
DX: F41.9 Anxiety disorder, unspecified (principal); J45.909 Unspecified asthma, uncomplicated; F20.9 Schizophrenia, unspecified; F12.90 Cannabis use, unspecified, uncomplicated; F15.90 Other stimulant use, unspecified, uncomplicated; F17.210 Nicotine dependence, cigarettes, uncomplicated; Z76.0 Encounter for issue of repeat prescription; Z79.899 Other long term (current) drug therapy
CPT/HCPCS: 99284; Z7502; Z7610

== ENCOUNTER 2021-05-27 10:14 | Emergency (ER) | payer MEDICARE, OTHER ==
[~2021-05-27] VITALS: Ht 180.3 cm; Wt 96.0 kg
[2021-05-27] MEDS ORDERED: LORazepam 1 MG TABLET PO ONE (11:15)
[2021-05-27] MEDS ORDERED: HALOPERIDOL 5 MG TABLET PO ONE (11:15)
[2021-05-27] MEDS ORDERED: BENZTROPINE MESYLATE 1 MG TABLET PO ONE (11:15)
[2021-05-27 11:16] LABS: BASOPHILS % (AUTO) 0.3 % (0.0-2.0); EOSINOPHILS % (AUTO) 2.1 % (1.0-6.0); HEMATOCRIT 44.2 % (41-53); HEMOGLOBIN 15.2 g/dL (13.5-17.5); LYMPHOCYTES # (AUTO) 2.3 K/uL (1.0-4.8); LYMPHOCYTES % (AUTO) 20.1 % (22.0-44.0); MEAN CORPUSCULAR HEMOGLOBIN 30.7 pg (26.0-34.0); MEAN CORPUSCULAR HGB CONC 34.4 G/dL (31.0-37.0); MEAN CORPUSCULAR VOLUME 89 fL (80-100); MONOCYTES # (AUTO) 0.9 K/uL (0.1-1.0); MONOCYTES % (AUTO) 8.2 % (2.0-9.0); NEUTROPHILS # (AUTO) 7.9 K/uL (1.8-7.7); NEUTROPHILS % (AUTO) 69.3 % (40.0-70.0); PLATELET COUNT (AUTO) 334 K/uL (150-450); RED BLOOD CELL COUNT(AUTO) 4.95 MIL/uL (4.50-5.90); RED CELL DISTRIBUTION WIDTH 13.2 % (11.5-14.5)
[2021-05-27 11:28] LABS: ANION GAP 8 mmol/L (8-16); CALCIUM, TOTAL 9.4 mg/dL (8.8-10.5); CARBON DIOXIDE 27 mmol/L (22-29); CHLORIDE 103 mmol/L (98-107); CREATININE 1.04 mg/dL (0.60-1.30); GLOMERULAR FILTR. RATE CALC > 60 mL/min (>60); GLUCOSE,RANDOM 127 mg/dL (70-110); POTASSIUM 4.2 mmol/L (3.5-5.1); SODIUM SERUM 138 mmol/L (136-145); UREA NITROGEN, BLOOD 8 mg/dL (7-18)
[2021-05-27 11:38] LABS: ALANINE AMINOTRANSFERASE 31 U/L (12-78); ALBUMIN 3.8 g/dL (3.4-5.0); ALKALINE PHOSPHATASE 105 U/L (46-116); ASPARTATE AMINOTRANSFERASE 13 U/L (15-37); BILIRUBIN,TOTAL 0.2 mg/dL (0.1-1.0); TOTAL PROTEIN, SERUM 6.9 g/dL (6.4-8.2)
[2021-05-27 15:01] LABS: AMPHET/METH SCREEN,URINE POSITIVE (NEGATIVE); BARBITURATE SCREEN, URINE NEGATIVE (NEGATIVE); BENZODIAZEPINES SCREEN,URINE NEGATIVE (NEGATIVE); CANNABINOID SCREEN,URINE NEGATIVE (NEGATIVE); COCAINE SCREEN,URINE NEGATIVE (NEGATIVE); METHADONE SCREEN, URINE NEGATIVE (NEGATIVE); OPIATE SCREEN,URINE NEGATIVE (NEGATIVE)
[2021-05-27 15:03] LABS: PHENCYCLIDINE SCREEN,URINE NEGATIVE (NEGATIVE)
[2021-05-27 16:00] VITALS: BP 119/81
== END 2021-05-27 16:18 | disposition home or self-care (01) ==
LOC: EMS 10:26
DX: F25.9 Schizoaffective disorder, unspecified (principal); F31.9 Bipolar disorder, unspecified; Z79.899 Other long term (current) drug therapy; F15.90 Other stimulant use, unspecified, uncomplicated; F17.210 Nicotine dependence, cigarettes, uncomplicated
CPT/HCPCS: 36415; 80053; 80307; 85025; 99284; G0480

== ENCOUNTER 2021-05-29 09:06 | Emergency (ER) | payer MEDICARE, OTHER ==
[~2021-05-29] VITALS: Ht 182.9 cm; Wt 95.5 kg
[2021-05-29 09:42] VITALS: BP 130/72
== END 2021-05-29 18:07 | disposition left against medical advice (07) ==
LOC: EMS 09:10
DX: Z53.21 Procedure and treatment not carried out due to patient leaving prior to being seen by health care provider (principal)

== ENCOUNTER 2021-05-31 10:49 | Emergency (ER) | payer MEDICARE, OTHER ==
[~2021-05-31] VITALS: Ht 180.3 cm; Wt 96.4 kg
[2021-05-31] MEDS ORDERED: LORazepam 1 MG TABLET PO ONE (11:15)
[2021-05-31 11:30] VITALS: BP 135/81
== END 2021-05-31 11:33 | disposition home or self-care (01) ==
LOC: EMS 10:52
DX: F41.9 Anxiety disorder, unspecified (principal); F15.10 Other stimulant abuse, uncomplicated; F31.9 Bipolar disorder, unspecified; F20.9 Schizophrenia, unspecified; F17.210 Nicotine dependence, cigarettes, uncomplicated
CPT/HCPCS: 99283

== ENCOUNTER 2021-06-07 15:46 | Emergency (ER) | payer MEDICARE, OTHER ==
[~2021-06-07] VITALS: Ht 180.3 cm; Wt 90.9 kg
[2021-06-07 16:03] VITALS: BP 98/64
== END 2021-06-07 18:36 | disposition home or self-care (01) ==
LOC: EMS 15:47
DX: F41.9 Anxiety disorder, unspecified (principal); F15.10 Other stimulant abuse, uncomplicated; F31.9 Bipolar disorder, unspecified; F20.9 Schizophrenia, unspecified; F17.210 Nicotine dependence, cigarettes, uncomplicated; Z79.899 Other long term (current) drug therapy
CPT/HCPCS: 99281; Z7502

== ENCOUNTER 2021-06-18 11:53 | Emergency (ER) | payer MEDICARE, OTHER ==
[~2021-06-18] VITALS: Ht 180.3 cm; Wt 90.7 kg
[2021-06-18 12:18] VITALS: BP 117/58
[2021-08-14] MEDS ORDERED: OLAN15TA36 PO (14:10)
[2021-08-16] MEDS ORDERED: TRAZ-257 PO (15:14)
[2021-08-16] MEDS ORDERED: OLAN10 PO (15:14)
== END 2021-06-18 12:22 | disposition left against medical advice (07) ==
LOC: EMS 12:00
DX: F15.90 Other stimulant use, unspecified, uncomplicated (principal); Z53.21 Procedure and treatment not carried out due to patient leaving prior to being seen by health care provider

== ENCOUNTER 2021-06-28 10:45 | Emergency (ER) | payer MEDICARE, OTHER ==
[~2021-06-28] VITALS: Ht 180.3 cm; Wt 95.5 kg
[2021-06-28] MEDS ORDERED: ALBU8HFA IH (10:56)
[2021-06-28] MEDS ORDERED: OLAN10TA74 PO (10:56)
[2021-06-28 10:57] VITALS: BP 108/71
[2021-06-28] MEDS ORDERED: ALBUTEROL SULFATE HFA 90 MCG/PUFF 8 GM INHALER IH ONE (11:00)
== END 2021-06-28 11:08 | disposition home or self-care (01) ==
LOC: EMS 10:53
DX: J45.901 Unspecified asthma with (acute) exacerbation (principal); F15.10 Other stimulant abuse, uncomplicated; F31.9 Bipolar disorder, unspecified; F20.9 Schizophrenia, unspecified; F17.210 Nicotine dependence, cigarettes, uncomplicated; Z79.899 Other long term (current) drug therapy
CPT/HCPCS: 94640; 99283; J3535

== ENCOUNTER 2021-06-29 11:46 | Emergency (ER) | payer MEDICARE, OTHER ==
[~2021-06-29] VITALS: Ht 180.3 cm; Wt 90.9 kg
[2021-06-29 11:54] VITALS: BP 113/71
== END 2021-06-29 13:25 | disposition home or self-care (01) ==
LOC: EMS 11:57
DX: F41.9 Anxiety disorder, unspecified (principal); F15.10 Other stimulant abuse, uncomplicated; F31.9 Bipolar disorder, unspecified; F20.9 Schizophrenia, unspecified; F17.210 Nicotine dependence, cigarettes, uncomplicated; Z79.899 Other long term (current) drug therapy
CPT/HCPCS: 99281; Z7502

== ENCOUNTER 2021-07-02 16:08 | Emergency (ER) | payer MEDICARE, OTHER ==
[~2021-07-02] VITALS: Ht 180.3 cm; Wt 95.5 kg
[2021-07-02 16:16] VITALS: BP 123/79
== END 2021-07-02 19:00 | disposition left against medical advice (07) ==
LOC: EMS 16:13
DX: R44.3 Hallucinations, unspecified (principal); Z53.21 Procedure and treatment not carried out due to patient leaving prior to being seen by health care provider

== ENCOUNTER 2021-07-11 18:12 | Emergency (ER) | payer MEDICARE, OTHER ==
[~2021-07-11] VITALS: Ht 180.3 cm; Wt 90.9 kg
[2021-07-11 18:20] VITALS: BP 114/65
[2021-07-11] MEDS ORDERED: OLANZapine 5 MG TABLET PO ONE (19:00)
== END 2021-07-11 19:17 | disposition home or self-care (01) ==
LOC: EMS 18:19
DX: F15.10 Other stimulant abuse, uncomplicated (principal); F31.9 Bipolar disorder, unspecified; F20.9 Schizophrenia, unspecified; J45.909 Unspecified asthma, uncomplicated
CPT/HCPCS: 99283; 99284

== ENCOUNTER 2021-07-14 17:05 | Emergency (ER) | payer MEDICARE, OTHER ==
[~2021-07-14] VITALS: Ht 180.3 cm; Wt 90.9 kg
[2021-07-14] MEDS ORDERED: OLANZapine 5 MG TABLET PO ONE (18:30)
[2021-07-14 18:53] VITALS: BP 130/70
== END 2021-07-14 19:03 | disposition home or self-care (01) ==
LOC: EMS 17:08
DX: F15.90 Other stimulant use, unspecified, uncomplicated (principal); F20.9 Schizophrenia, unspecified; J45.909 Unspecified asthma, uncomplicated; F31.9 Bipolar disorder, unspecified
CPT/HCPCS: 99283

== ENCOUNTER 2021-07-17 19:36 | Emergency (ER) | payer MEDICARE, OTHER ==
[~2021-07-17] VITALS: Ht 180.3 cm; Wt 90.9 kg
[2021-07-17 19:47] VITALS: BP 133/81
[2021-07-17] MEDS ORDERED: OLANZapine 5 MG TABLET PO ONE (20:00)
== END 2021-07-17 20:18 | disposition home or self-care (01) ==
LOC: EMS 19:42
DX: F15.10 Other stimulant abuse, uncomplicated (principal); F31.9 Bipolar disorder, unspecified; F41.9 Anxiety disorder, unspecified; J45.909 Unspecified asthma, uncomplicated; Z79.899 Other long term (current) drug therapy
CPT/HCPCS: 99283

== ENCOUNTER 2021-07-21 09:46 | Emergency (ER) | payer MEDICARE, OTHER ==
[~2021-07-21] VITALS: Ht 180.3 cm; Wt 93.0 kg
[2021-07-21] MEDS ORDERED: OLANZapine 10 MG TABLET PO ONE (10:00)
[2021-07-21] MEDS ORDERED: OLANZapine 5 MG TABLET PO ONE (10:00)
[2021-07-21 10:04] VITALS: BP 99/77
== END 2021-07-21 11:42 | disposition home or self-care (01) ==
LOC: EMS 09:52
DX: F31.9 Bipolar disorder, unspecified (principal); F41.9 Anxiety disorder, unspecified; F15.90 Other stimulant use, unspecified, uncomplicated; J45.909 Unspecified asthma, uncomplicated; F20.9 Schizophrenia, unspecified
CPT/HCPCS: 99283; 99284

== ENCOUNTER 2021-07-23 13:03 | Emergency (ER) | payer MEDICARE, OTHER ==
[~2021-07-23] VITALS: Ht 180.3 cm; Wt 200.0 kg
[2021-07-23 13:21] VITALS: BP 97/64
[2021-08-14] MEDS ORDERED: OLAN15TA36 PO (14:10)
== END 2021-07-23 14:08 | disposition home or self-care (01) ==
LOC: EMS 13:03
DX: F15.10 Other stimulant abuse, uncomplicated (principal); F41.9 Anxiety disorder, unspecified; F31.9 Bipolar disorder, unspecified; F20.9 Schizophrenia, unspecified; J45.909 Unspecified asthma, uncomplicated; Z79.899 Other long term (current) drug therapy
CPT/HCPCS: 99281; Z7502

== ENCOUNTER 2021-07-24 15:32 | Emergency (ER) | payer MEDICARE, OTHER ==
[~2021-07-24] VITALS: Ht 180.3 cm; Wt 91.0 kg
[2021-07-24 15:36] VITALS: BP 129/82
[2021-07-24] MEDS ORDERED: HydrOXYzine PAMOATE 50 MG CAPSULE PO ONE (16:30)
[2021-08-14] MEDS ORDERED: OLAN15TA36 PO (14:10)
== END 2021-07-24 17:32 | disposition home or self-care (01) ==
LOC: EMS 15:42
DX: F41.9 Anxiety disorder, unspecified (principal); F15.10 Other stimulant abuse, uncomplicated; F31.9 Bipolar disorder, unspecified; F20.9 Schizophrenia, unspecified; J45.909 Unspecified asthma, uncomplicated; Z79.899 Other long term (current) drug therapy
CPT/HCPCS: 99281; Z7502

== ENCOUNTER 2021-07-26 11:35 | Emergency (ER) | payer MEDICARE, OTHER ==
[~2021-07-26] VITALS: Ht 180.3 cm; Wt 91.0 kg
[~2021-07-26 11:35] MED LIST changes: -HALO5TAB2 PO; -TRAZ-257 PO
[2021-07-26 11:38] VITALS: BP 133/70
[2021-07-26 12:17] LABS: BASOPHILS % (AUTO) 0.7 % (0.0-2.0); EOSINOPHILS % (AUTO) 1.9 % (1.0-6.0); HEMATOCRIT 42.5 % (41-53); HEMOGLOBIN 14.6 g/dL (13.5-17.5); LYMPHOCYTES # (AUTO) 2.2 K/uL (1.0-4.8); LYMPHOCYTES % (AUTO) 17.3 % (22.0-44.0); MEAN CORPUSCULAR HEMOGLOBIN 30.6 pg (26.0-34.0); MEAN CORPUSCULAR HGB CONC 34.5 G/dL (31.0-37.0); MEAN CORPUSCULAR VOLUME 89 fL (80-100); NEUTROPHILS # (AUTO) 9.2 K/uL (1.8-7.7); NEUTROPHILS % (AUTO) 72.1 % (40.0-70.0); PLATELET COUNT (AUTO) 328 K/uL (150-450); RED BLOOD CELL COUNT(AUTO) 4.78 MIL/uL (4.50-5.90); RED CELL DISTRIBUTION WIDTH 13.6 % (11.5-14.5)
[2021-07-26 12:32] LABS: ANION GAP 10 mmol/L (8-16); CALCIUM, TOTAL 8.8 mg/dL (8.8-10.5); CARBON DIOXIDE 25 mmol/L (22-29); CHLORIDE 105 mmol/L (98-107); CREATININE 0.81 mg/dL (0.60-1.30); GLOMERULAR FILTR. RATE CALC > 60 mL/min (>60); GLUCOSE,RANDOM 87 mg/dL (70-110); POTASSIUM 3.9 mmol/L (3.5-5.1); SODIUM SERUM 140 mmol/L (136-145); UREA NITROGEN, BLOOD 9 mg/dL (7-18)
[2021-07-26 12:34] LABS: ALANINE AMINOTRANSFERASE 30 U/L (12-78); ALBUMIN 3.8 g/dL (3.4-5.0); ALKALINE PHOSPHATASE 92 U/L (46-116); ASPARTATE AMINOTRANSFERASE 14 U/L (15-37); BILIRUBIN,TOTAL 0.5 mg/dL (0.1-1.0); TOTAL PROTEIN, SERUM 6.9 g/dL (6.4-8.2)
[2021-07-26 13:18] LABS: AMPHET/METH SCREEN,URINE POSITIVE (NEGATIVE); BARBITURATE SCREEN, URINE NEGATIVE (NEGATIVE); BENZODIAZEPINES SCREEN,URINE NEGATIVE (NEGATIVE); CANNABINOID SCREEN,URINE NEGATIVE (NEGATIVE); COCAINE SCREEN,URINE NEGATIVE (NEGATIVE); METHADONE SCREEN, URINE NEGATIVE (NEGATIVE); OPIATE SCREEN,URINE NEGATIVE (NEGATIVE); PHENCYCLIDINE SCREEN,URINE NEGATIVE (NEGATIVE)
[2021-08-14] MEDS ORDERED: OLAN15TA36 PO (14:10)
== END 2021-07-26 13:49 | disposition home or self-care (01) ==
LOC: EMS 11:35
DX: F20.9 Schizophrenia, unspecified (principal); F15.10 Other stimulant abuse, uncomplicated; F31.9 Bipolar disorder, unspecified; J45.909 Unspecified asthma, uncomplicated; F17.210 Nicotine dependence, cigarettes, uncomplicated; Z79.899 Other long term (current) drug therapy
CPT/HCPCS: 36415; 80053; 80307; 85025; 99284; G0480

== ENCOUNTER 2021-08-05 14:48 | Emergency (ER) | payer MEDICARE, OTHER ==
[~2021-08-05] VITALS: Ht 180.3 cm; Wt 90.0 kg
[2021-08-05] MEDS ORDERED: HydrOXYzine PAMOATE 50 MG CAPSULE PO ONE (15:15)
[2021-08-05 15:35] VITALS: BP 130/74
[2021-08-14] MEDS ORDERED: OLAN15TA36 PO (14:10)
== END 2021-08-05 15:40 | disposition home or self-care (01) ==
LOC: EMS 14:51
DX: F41.9 Anxiety disorder, unspecified (principal); F31.9 Bipolar disorder, unspecified; J45.909 Unspecified asthma, uncomplicated; F17.210 Nicotine dependence, cigarettes, uncomplicated; F19.90 Other psychoactive substance use, unspecified, uncomplicated
CPT/HCPCS: 99283

== ENCOUNTER 2021-08-07 14:45 | Emergency (ER) | payer MEDICARE, OTHER ==
[~2021-08-07] VITALS: Ht 180.3 cm; Wt 90.9 kg
[2021-08-07 14:48] VITALS: BP 101/70
[2021-08-07] MEDS ORDERED: LORazepam 1 MG TABLET PO ONE (15:15)
[2021-08-07] MEDS ORDERED: OLANZapine 5 MG TABLET PO ONE (15:15)
[2021-08-07] MEDS ORDERED: HALOPERIDOL 5 MG TABLET PO ONE (15:15)
[2021-08-14] MEDS ORDERED: OLAN15TA36 PO (14:10)
[2021-08-16] MEDS ORDERED: OLAN10 PO (15:14)
[2021-08-16] MEDS ORDERED: TRAZ-257 PO (15:14)
== END 2021-08-07 16:11 | disposition home or self-care (01) ==
LOC: EMS 14:49
DX: F15.959 Other stimulant use, unspecified with stimulant-induced psychotic disorder, unspecified (principal); J45.909 Unspecified asthma, uncomplicated; F31.9 Bipolar disorder, unspecified; F17.210 Nicotine dependence, cigarettes, uncomplicated
CPT/HCPCS: 99284; Z7502; Z7610

== ENCOUNTER 2021-08-09 09:17 | Emergency (ER) | payer MEDICARE, OTHER ==
[~2021-08-09] VITALS: Ht 180.3 cm; Wt 91.0 kg
[2021-08-09] MEDS ORDERED: LORazepam 1 MG TABLET PO ONE (09:45)
[2021-08-09 11:14] VITALS: BP 108/72
[2021-08-14] MEDS ORDERED: OLAN15TA36 PO (14:10)
== END 2021-08-09 11:44 | disposition home or self-care (01) ==
LOC: EMS 09:24
DX: F41.9 Anxiety disorder, unspecified (principal); F20.9 Schizophrenia, unspecified; F31.9 Bipolar disorder, unspecified; J45.909 Unspecified asthma, uncomplicated; F15.90 Other stimulant use, unspecified, uncomplicated; F17.210 Nicotine dependence, cigarettes, uncomplicated
CPT/HCPCS: 99283

== ENCOUNTER 2021-08-11 15:42 | Emergency (ER) | payer MEDICARE, OTHER ==
[~2021-08-11] VITALS: Ht 180.3 cm; Wt 90.9 kg
[~2021-08-11 15:42] MED LIST changes: +HALO5TAB2 PO; +TRAZ-257 PO
[2021-08-11 15:52] VITALS: BP 128/72
[2021-08-11] MEDS ORDERED: LORazepam 1 MG TABLET PO ONE (16:45)
[2021-08-14] MEDS ORDERED: OLAN15TA36 PO (14:10)
[2021-08-16] MEDS ORDERED: OLAN10 PO (15:14)
[2021-08-16] MEDS ORDERED: TRAZ-257 PO (15:14)
== END 2021-08-11 17:13 | disposition home or self-care (01) ==
LOC: EMS 15:44
DX: F22 Delusional disorders (principal); F15.10 Other stimulant abuse, uncomplicated; J45.909 Unspecified asthma, uncomplicated; F31.9 Bipolar disorder, unspecified; F17.210 Nicotine dependence, cigarettes, uncomplicated; Z98.890 Other specified postprocedural states
CPT/HCPCS: 99282; 99283

== ENCOUNTER 2021-08-23 01:43 | Emergency (ER) | payer MEDICARE, MEDICAID ==
[~2021-08-23] VITALS: Ht 180.3 cm; Wt 90.9 kg
[~2021-08-23 01:43] MED LIST changes: -ALBU8HFA IH; -HALO5TAB2 PO; +OLAN10 PO; -OLAN10TA74 PO
[2021-08-23] MEDS ORDERED: KETOROLAC TROMETHAMINE 30 MG/ML VIAL IVP ONE (02:15)
[2021-08-23] MEDS ORDERED: ONDANSETRON HCL 4 MG/2 ML VIAL IVP ONE (02:15)
[2021-08-23] MEDS ORDERED: SODIUM CHLORIDE 0.9% 1,000 ML IV ONE (02:15)
[2021-08-23 03:30] VITALS: BP 118/69
== END 2021-08-23 03:57 | disposition home or self-care (01) ==
LOC: EMS 01:45
DX: R11.2 Nausea with vomiting, unspecified (principal); F31.9 Bipolar disorder, unspecified; F20.9 Schizophrenia, unspecified; F15.90 Other stimulant use, unspecified, uncomplicated; F17.210 Nicotine dependence, cigarettes, uncomplicated
CPT/HCPCS: 96361; 96374; 96375; 99284; J1885; J2405; J7030

== ENCOUNTER 2021-08-23 11:06 | Emergency (ER) | payer MEDICARE, OTHER ==
[~2021-08-23] VITALS: Ht 185.4 cm; Wt 90.9 kg
[2021-08-23] MEDS ORDERED: OLANZapine 5 MG RAPDIS TABLET PO ONE (12:45)
[2021-08-23] MEDS ORDERED: LORazepam 1 MG TABLET PO ONE (12:45)
[2021-09-03 18:59] VITALS: BP 138/78
== END 2021-08-23 13:57 | disposition home or self-care (01) ==
LOC: EMS 11:08
DX: F99 Mental disorder, not otherwise specified (principal); R44.0 Auditory hallucinations; F31.9 Bipolar disorder, unspecified; F15.90 Other stimulant use, unspecified, uncomplicated; F17.210 Nicotine dependence, cigarettes, uncomplicated
CPT/HCPCS: 99283; 99284

== ENCOUNTER 2021-08-25 01:36 | Emergency (ER) | payer MEDICARE, OTHER ==
[~2021-08-25] VITALS: Ht 180.3 cm; Wt 90.9 kg
[2021-08-25 04:00] LABS: BASOPHILS % (AUTO) 0.6 % (0.0-2.0); EOSINOPHILS % (AUTO) 1.5 % (1.0-6.0); HEMATOCRIT 42.6 % (41-53); HEMOGLOBIN 14.6 g/dL (13.5-17.5); LYMPHOCYTES # (AUTO) 2.6 K/uL (1.0-4.8); LYMPHOCYTES % (AUTO) 18.1 % (22.0-44.0); MEAN CORPUSCULAR HEMOGLOBIN 30.4 pg (26.0-34.0); MEAN CORPUSCULAR HGB CONC 34.3 G/dL (31.0-37.0); MEAN CORPUSCULAR VOLUME 89 fL (80-100); MONOCYTES # (AUTO) 0.7 K/uL (0.1-1.0); MONOCYTES % (AUTO) 5.2 % (2.0-9.0); NEUTROPHILS # (AUTO) 10.6 K/uL (1.8-7.7); NEUTROPHILS % (AUTO) 74.6 % (40.0-70.0); PLATELET COUNT (AUTO) 338 K/uL (150-450); RED BLOOD CELL COUNT(AUTO) 4.81 MIL/uL (4.50-5.90); RED CELL DISTRIBUTION WIDTH 13.5 % (11.5-14.5)
[2021-08-25 04:12] LABS: ANION GAP 4 mmol/L (8-16); CALCIUM, TOTAL 9.1 mg/dL (8.8-10.5); CARBON DIOXIDE 30 mmol/L (22-29); CHLORIDE 104 mmol/L (98-107); GLOMERULAR FILTR. RATE CALC > 60 mL/min (>60); GLUCOSE,RANDOM 117 mg/dL (70-110); POTASSIUM 4.4 mmol/L (3.5-5.1); SODIUM SERUM 138 mmol/L (136-145); UREA NITROGEN, BLOOD 9 mg/dL (7-18)
[2021-08-25 04:17] LABS: ALANINE AMINOTRANSFERASE 26 U/L (12-78); ALKALINE PHOSPHATASE 96 U/L (46-116); ASPARTATE AMINOTRANSFERASE 12 U/L (15-37); BILIRUBIN,TOTAL 0.2 mg/dL (0.1-1.0); TOTAL PROTEIN, SERUM 7.4 g/dL (6.4-8.2)
[2021-08-25 05:12] VITALS: BP 135/82
== END 2021-08-25 05:15 | disposition home or self-care (01) ==
LOC: EMS 01:39
DX: F15.90 Other stimulant use, unspecified, uncomplicated (principal); F22 Delusional disorders; F31.9 Bipolar disorder, unspecified; F20.9 Schizophrenia, unspecified; F17.210 Nicotine dependence, cigarettes, uncomplicated
CPT/HCPCS: 36415; 80053; 85025; 99283; G0480

== ENCOUNTER 2021-08-25 18:13 | Emergency (ER) | payer MEDICARE, OTHER ==
[~2021-08-25] VITALS: Ht 188 cm; Wt 84.1 kg
[2021-08-25] MEDS ORDERED: BENZTROPINE MESYLATE 2 MG TABLET PO ONE (19:15)
[2021-08-25] MEDS ORDERED: LORazepam 1 MG TABLET PO ONE (19:15)
[2021-08-25] MEDS ORDERED: HALOPERIDOL 5 MG TABLET PO ONE (19:15)
[2021-08-25 19:28] LABS: BASOPHILS % (AUTO) 0.7 % (0.0-2.0); EOSINOPHILS % (AUTO) 3.7 % (1.0-6.0); HEMATOCRIT 43.2 % (41-53); LYMPHOCYTES # (AUTO) 2.6 K/uL (1.0-4.8); LYMPHOCYTES % (AUTO) 21.8 % (22.0-44.0); MEAN CORPUSCULAR HEMOGLOBIN 30.9 pg (26.0-34.0); MEAN CORPUSCULAR HGB CONC 34.7 G/dL (31.0-37.0); MEAN CORPUSCULAR VOLUME 89 fL (80-100); MONOCYTES # (AUTO) 0.6 K/uL (0.1-1.0); MONOCYTES % (AUTO) 5.5 % (2.0-9.0); NEUTROPHILS % (AUTO) 68.3 % (40.0-70.0); PLATELET COUNT (AUTO) 338 K/uL (150-450); RED BLOOD CELL COUNT(AUTO) 4.86 MIL/uL (4.50-5.90); RED CELL DISTRIBUTION WIDTH 13.6 % (11.5-14.5)
[2021-08-25 20:14] VITALS: BP 106/78
[2021-08-25 20:18] LABS: ANION GAP 8 mmol/L (8-16); CALCIUM, TOTAL 8.9 mg/dL (8.8-10.5); CARBON DIOXIDE 28 mmol/L (22-29); CHLORIDE 103 mmol/L (98-107); GLOMERULAR FILTR. RATE CALC > 60 mL/min (>60); GLUCOSE,RANDOM 123 mg/dL (70-110); POTASSIUM 3.8 mmol/L (3.5-5.1); SODIUM SERUM 139 mmol/L (136-145); UREA NITROGEN, BLOOD 7 mg/dL (7-18)
[2021-08-25 20:23] LABS: ALANINE AMINOTRANSFERASE 26 U/L (12-78); ALBUMIN 3.8 g/dL (3.4-5.0); ALKALINE PHOSPHATASE 88 U/L (46-116); ASPARTATE AMINOTRANSFERASE 23 U/L (15-37); BILIRUBIN,TOTAL 0.4 mg/dL (0.1-1.0)
== END 2021-08-25 20:25 | disposition home or self-care (01) ==
LOC: EMS 18:17
DX: F41.9 Anxiety disorder, unspecified (principal); F31.9 Bipolar disorder, unspecified; F20.9 Schizophrenia, unspecified; F15.90 Other stimulant use, unspecified, uncomplicated; F17.210 Nicotine dependence, cigarettes, uncomplicated; Z79.899 Other long term (current) drug therapy
CPT/HCPCS: 36415; 80053; 85025; 99284; G0480

== ENCOUNTER 2021-08-27 20:15 | Emergency (ER) | payer MEDICARE, OTHER ==
[~2021-08-27] VITALS: Ht 180.3 cm; Wt 90.9 kg
[2021-08-27 20:20] VITALS: BP 100/57
== END 2021-08-27 21:30 | disposition left against medical advice (07) ==
LOC: EMS 20:20
DX: F48.9 Nonpsychotic mental disorder, unspecified (principal); Z53.21 Procedure and treatment not carried out due to patient leaving prior to being seen by health care provider

== ENCOUNTER 2021-08-29 12:29 | Emergency (ER) | payer MEDICARE, OTHER ==
[~2021-08-29] VITALS: Ht 180.3 cm; Wt 90.9 kg
[2021-08-29] MEDS ORDERED: LORazepam 2 MG TABLET PO ONE (13:00)
[2021-08-29 14:24] VITALS: BP 124/79
== END 2021-08-29 14:30 | disposition home or self-care (01) ==
LOC: EMS 12:29
DX: F25.9 Schizoaffective disorder, unspecified (principal); F31.9 Bipolar disorder, unspecified; F15.10 Other stimulant abuse, uncomplicated; F17.210 Nicotine dependence, cigarettes, uncomplicated; Z98.890 Other specified postprocedural states
CPT/HCPCS: 99284; Z7502; Z7610

== ENCOUNTER 2021-09-02 19:11 | Emergency (ER) | payer MEDICARE, OTHER ==
[~2021-09-02] VITALS: Ht 180.3 cm; Wt 90.9 kg
[2021-09-02] MEDS ORDERED: HALOPERIDOL 5 MG TABLET PO ONE (20:00)
[2021-09-02] MEDS ORDERED: LORazepam 1 MG TABLET PO ONE (20:00)
[2021-09-02 20:14] LABS: BASOPHILS % (AUTO) 0.6 % (0.0-2.0); HEMATOCRIT 43.2 % (41-53); HEMOGLOBIN 14.9 g/dL (13.5-17.5); LYMPHOCYTES # (AUTO) 2.9 K/uL (1.0-4.8); LYMPHOCYTES % (AUTO) 20.3 % (22.0-44.0); MEAN CORPUSCULAR HEMOGLOBIN 30.6 pg (26.0-34.0); MEAN CORPUSCULAR HGB CONC 34.5 G/dL (31.0-37.0); MEAN CORPUSCULAR VOLUME 89 fL (80-100); MONOCYTES # (AUTO) 0.9 K/uL (0.1-1.0); MONOCYTES % (AUTO) 6.2 % (2.0-9.0); NEUTROPHILS # (AUTO) 10.1 K/uL (1.8-7.7); NEUTROPHILS % (AUTO) 69.9 % (40.0-70.0); PLATELET COUNT (AUTO) 309 K/uL (150-450); RED BLOOD CELL COUNT(AUTO) 4.87 MIL/uL (4.50-5.90); RED CELL DISTRIBUTION WIDTH 13.5 % (11.5-14.5)
[2021-09-02 20:26] LABS: ANION GAP 8 mmol/L (8-16); CALCIUM, TOTAL 8.9 mg/dL (8.8-10.5); CARBON DIOXIDE 27 mmol/L (22-29); CHLORIDE 103 mmol/L (98-107); CREATININE 1.16 mg/dL (0.60-1.30); GLOMERULAR FILTR. RATE CALC > 60 mL/min (>60); GLUCOSE,RANDOM 112 mg/dL (70-110); POTASSIUM 3.6 mmol/L (3.5-5.1); SODIUM SERUM 138 mmol/L (136-145); UREA NITROGEN, BLOOD 16 mg/dL (7-18)
[2021-09-02 20:30] VITALS: BP 113/65
[2021-09-02 20:30] LABS: COVID AG,FIA SOURCE NASOPHARYNGEAL
[2021-09-02 20:31] LABS: ALANINE AMINOTRANSFERASE 31 U/L (12-78); ALBUMIN 3.8 g/dL (3.4-5.0); ALKALINE PHOSPHATASE 104 U/L (46-116); ASPARTATE AMINOTRANSFERASE 16 U/L (15-37); BILIRUBIN,TOTAL 0.2 mg/dL (0.1-1.0); TOTAL PROTEIN, SERUM 6.9 g/dL (6.4-8.2)
[2021-09-02 20:40] LABS: AMPHET/METH SCREEN,URINE POSITIVE (NEGATIVE); BARBITURATE SCREEN, URINE NEGATIVE (NEGATIVE); BENZODIAZEPINES SCREEN,URINE NEGATIVE (NEGATIVE); CANNABINOID SCREEN,URINE NEGATIVE (NEGATIVE); COCAINE SCREEN,URINE NEGATIVE (NEGATIVE); METHADONE SCREEN, URINE NEGATIVE (NEGATIVE); OPIATE SCREEN,URINE NEGATIVE (NEGATIVE)
[2021-09-02 20:42] LABS: PHENCYCLIDINE SCREEN,URINE NEGATIVE (NEGATIVE)
== END 2021-09-02 22:36 | disposition home or self-care (01) ==
LOC: EMS 19:12
DX: F15.159 Other stimulant abuse with stimulant-induced psychotic disorder, unspecified (principal); R45.851 Suicidal ideations; F41.9 Anxiety disorder, unspecified; F31.9 Bipolar disorder, unspecified; F17.210 Nicotine dependence, cigarettes, uncomplicated; Z20.822 Contact with and (suspected) exposure to COVID-19
CPT/HCPCS: 36415; 80053; 80307; 85025; 87426; 99283; G0480

== ENCOUNTER 2021-09-06 20:22 | Emergency (ER) | payer MEDICARE, OTHER ==
[~2021-09-06] VITALS: Ht 180.3 cm; Wt 94.1 kg
[2021-09-06 20:32] VITALS: BP 135/92
== END 2021-09-06 22:00 | disposition left against medical advice (07) ==
LOC: EMS 20:24
DX: Z00.00 Encounter for general adult medical examination without abnormal findings (principal); Z53.21 Procedure and treatment not carried out due to patient leaving prior to being seen by health care provider

== ENCOUNTER 2021-09-09 10:28 | Emergency (ER) | payer MEDICARE, OTHER ==
[~2021-09-09] VITALS: Ht 180.3 cm; Wt 95.5 kg
[2021-09-09] MEDS ORDERED: HALOPERIDOL 5 MG TABLET PO ONE (11:30)
[2021-09-09 11:35] LABS: COVID AG,FIA SOURCE NASOPHARYNGEAL
[2021-09-09 11:55] LABS: INFLUENZA TYPE A NEGATIVE FOR TYPE A (NEGATIVE); INFLUENZA TYPE B NEGATIVE FOR TYPE B (NEGATIVE)
[2021-09-09 12:25] VITALS: BP 116/73
== END 2021-09-09 12:35 | disposition home or self-care (01) ==
LOC: EMS 10:28
DX: F15.10 Other stimulant abuse, uncomplicated (principal); J02.9 Acute pharyngitis, unspecified; F31.9 Bipolar disorder, unspecified; F20.9 Schizophrenia, unspecified; F17.210 Nicotine dependence, cigarettes, uncomplicated; Z20.822 Contact with and (suspected) exposure to COVID-19
CPT/HCPCS: 87804; 99283

== ENCOUNTER 2021-09-12 16:51 | Emergency (ER) | payer MEDICARE, OTHER ==
[~2021-09-12] VITALS: Ht 180.3 cm; Wt 90.9 kg
[2021-09-12 16:53] VITALS: BP 111/56
== END 2021-09-12 18:45 | disposition home or self-care (01) ==
LOC: EMS 16:51
DX: F41.9 Anxiety disorder, unspecified (principal); F31.9 Bipolar disorder, unspecified; F20.9 Schizophrenia, unspecified; F17.210 Nicotine dependence, cigarettes, uncomplicated; F19.90 Other psychoactive substance use, unspecified, uncomplicated
CPT/HCPCS: 99281; Z7502

== ENCOUNTER 2021-09-13 19:15 | Emergency (ER) | payer MEDICARE, OTHER ==
[~2021-09-13] VITALS: Ht 180.3 cm; Wt 95.5 kg
[2021-09-13 19:22] VITALS: BP 116/72
== END 2021-09-13 21:00 | disposition left against medical advice (07) ==
LOC: EMS 19:15
DX: Z53.21 Procedure and treatment not carried out due to patient leaving prior to being seen by health care provider (principal)

== ENCOUNTER 2021-09-16 23:06 | Emergency (ER) | payer MEDICARE, OTHER ==
[~2021-09-16] VITALS: Ht 180.3 cm; Wt 95.5 kg
[2021-09-16 23:30] VITALS: BP 139/82
[2021-09-16] MEDS ORDERED: HALOPERIDOL 5 MG TABLET PO ONE (23:30)
[2021-09-16] MEDS ORDERED: LORazepam 1 MG TABLET PO ONE (23:30)
== END 2021-09-17 01:18 | disposition home or self-care (01) ==
LOC: EMS 23:11
DX: F31.9 Bipolar disorder, unspecified (principal); F19.90 Other psychoactive substance use, unspecified, uncomplicated; F41.9 Anxiety disorder, unspecified; F20.9 Schizophrenia, unspecified; F17.210 Nicotine dependence, cigarettes, uncomplicated
CPT/HCPCS: 99284; Z7502; Z7610

== ENCOUNTER 2021-09-18 10:35 | Emergency (ER) | payer MEDICARE, OTHER ==
[~2021-09-18] VITALS: Ht 180.3 cm; Wt 95.4 kg
[2021-09-18 10:44] VITALS: BP 117/76
[2021-09-18 12:16] LABS: BASOPHILS % (AUTO) 0.6 % (0.0-2.0); EOSINOPHILS % (AUTO) 2.9 % (1.0-6.0); HEMATOCRIT 42.9 % (41-53); HEMOGLOBIN 14.6 g/dL (13.5-17.5); LYMPHOCYTES # (AUTO) 1.8 K/uL (1.0-4.8); LYMPHOCYTES % (AUTO) 19.6 % (22.0-44.0); MEAN CORPUSCULAR HEMOGLOBIN 30.3 pg (26.0-34.0); MEAN CORPUSCULAR VOLUME 89 fL (80-100); MONOCYTES # (AUTO) 0.8 K/uL (0.1-1.0); NEUTROPHILS # (AUTO) 6.5 K/uL (1.8-7.7); NEUTROPHILS % (AUTO) 68.9 % (40.0-70.0); PLATELET COUNT (AUTO) 298 K/uL (150-450); RED BLOOD CELL COUNT(AUTO) 4.81 MIL/uL (4.50-5.90); RED CELL DISTRIBUTION WIDTH 13.7 % (11.5-14.5)
[2021-09-18 12:24] LABS: ANION GAP 13 mmol/L (8-16); CALCIUM, TOTAL 8.5 mg/dL (8.8-10.5); CARBON DIOXIDE 26 mmol/L (22-29); CHLORIDE 105 mmol/L (98-107); CREATININE 0.95 mg/dL (0.60-1.30); GLOMERULAR FILTR. RATE CALC > 60 mL/min (>60); GLUCOSE,RANDOM 107 mg/dL (70-110); POTASSIUM 4.1 mmol/L (3.5-5.1); SODIUM SERUM 144 mmol/L (136-145); UREA NITROGEN, BLOOD 12 mg/dL (7-18)
[2021-09-18 12:30] LABS: ALANINE AMINOTRANSFERASE 31 U/L (12-78); ALBUMIN 3.5 g/dL (3.4-5.0); ALKALINE PHOSPHATASE 87 U/L (46-116); ASPARTATE AMINOTRANSFERASE 17 U/L (15-37); BILIRUBIN,TOTAL 0.5 mg/dL (0.1-1.0); TOTAL PROTEIN, SERUM 6.4 g/dL (6.4-8.2)
[2021-09-18] MEDS ORDERED: LORazepam 1 MG TABLET PO ONE (12:45)
== END 2021-09-18 14:29 | disposition home or self-care (01) ==
LOC: EMS 10:39
DX: F20.9 Schizophrenia, unspecified (principal); F31.9 Bipolar disorder, unspecified; F19.251 Other psychoactive substance dependence with psychoactive substance-induced psychotic disorder with hallucinations; F17.210 Nicotine dependence, cigarettes, uncomplicated
CPT/HCPCS: 36415; 80053; 85025; 99284; G0480

== ENCOUNTER 2021-09-19 14:22 | Emergency (ER) | payer MEDICARE, OTHER ==
[~2021-09-19] VITALS: Ht 180.3 cm; Wt 95.5 kg
[2021-09-19] MEDS ORDERED: HydrOXYzine PAMOATE 50 MG CAPSULE PO ONE (14:45)
[2021-09-19 15:39] VITALS: BP 129/74
== END 2021-09-19 15:40 | disposition home or self-care (01) ==
LOC: EMS 14:22
DX: F41.9 Anxiety disorder, unspecified (principal); F24 Shared psychotic disorder; F15.10 Other stimulant abuse, uncomplicated; F31.9 Bipolar disorder, unspecified; F20.9 Schizophrenia, unspecified; F17.210 Nicotine dependence, cigarettes, uncomplicated
CPT/HCPCS: 99283

== ENCOUNTER 2021-09-19 17:40 | Emergency (ER) | payer MEDICARE, OTHER ==
[~2021-09-19] VITALS: Ht 180.3 cm; Wt 95.5 kg
[2021-09-19 17:56] VITALS: BP 110/78
[2021-09-19] MEDS ORDERED: IBUPROFEN 600 MG TABLET PO ONE (19:15)
[2021-09-19] MEDS ORDERED: HALOPERIDOL 5 MG TABLET PO ONE (19:30)
== END 2021-09-19 19:15 | disposition home or self-care (01) ==
LOC: EMS 17:55
DX: F29 Unspecified psychosis not due to a substance or known physiological condition (principal); F15.10 Other stimulant abuse, uncomplicated; F41.9 Anxiety disorder, unspecified; F20.9 Schizophrenia, unspecified; F31.9 Bipolar disorder, unspecified; F17.210 Nicotine dependence, cigarettes, uncomplicated; F19.90 Other psychoactive substance use, unspecified, uncomplicated
CPT/HCPCS: 99284; Z7502; Z7610

== ENCOUNTER 2021-09-20 10:36 | Emergency (ER) | payer MEDICARE, OTHER ==
[~2021-09-20] VITALS: Ht 180.3 cm; Wt 95.5 kg
[2021-09-20] MEDS ORDERED: LORazepam 1 MG TABLET PO ONE (11:00)
[2021-09-20 11:15] VITALS: BP 124/69
== END 2021-09-20 11:37 | disposition home or self-care (01) ==
LOC: EMS 10:41
DX: F22 Delusional disorders (principal); F15.90 Other stimulant use, unspecified, uncomplicated; F31.9 Bipolar disorder, unspecified; F20.9 Schizophrenia, unspecified; F17.210 Nicotine dependence, cigarettes, uncomplicated; Z98.890 Other specified postprocedural states
CPT/HCPCS: 99283

== ENCOUNTER 2021-09-23 10:47 | Emergency (ER) | payer MEDICARE, OTHER ==
[~2021-09-23] VITALS: Ht 180.3 cm; Wt 95.5 kg
[2021-09-23 11:42] VITALS: BP 127/71
[2021-09-23] MEDS ORDERED: DiphenhydrAMINE HCL 50 MG CAPSULE PO ONE (11:45)
[2021-09-23] MEDS ORDERED: HALOPERIDOL 5 MG TABLET PO ONE (11:45)
== END 2021-09-23 13:08 | disposition home or self-care (01) ==
LOC: EMS 10:53
DX: F41.9 Anxiety disorder, unspecified (principal); F25.9 Schizoaffective disorder, unspecified; F15.10 Other stimulant abuse, uncomplicated; F31.9 Bipolar disorder, unspecified; F17.210 Nicotine dependence, cigarettes, uncomplicated
CPT/HCPCS: 99283

== ENCOUNTER 2021-09-25 15:49 | Emergency (ER) | payer MEDICARE, OTHER ==
[~2021-09-25] VITALS: Ht 180.3 cm; Wt 95.5 kg
[2021-09-25 15:53] VITALS: BP 123/75
[2021-09-25] MEDS ORDERED: HALOPERIDOL 5 MG TABLET PO ONE (16:45)
[2021-09-25] MEDS ORDERED: HydrOXYzine PAMOATE 50 MG CAPSULE PO ONE (16:45)
== END 2021-09-25 17:47 | disposition home or self-care (01) ==
LOC: EMS 15:55
DX: F19.251 Other psychoactive substance dependence with psychoactive substance-induced psychotic disorder with hallucinations (principal); F22 Delusional disorders; F41.9 Anxiety disorder, unspecified; F17.210 Nicotine dependence, cigarettes, uncomplicated; F12.90 Cannabis use, unspecified, uncomplicated
CPT/HCPCS: 99283

== ENCOUNTER 2021-10-01 20:34 | Emergency (ER) | payer MEDICARE, OTHER ==
[~2021-10-01] VITALS: Ht 177.8 cm; Wt 95.5 kg
[2021-10-01 20:43] VITALS: BP 139/76
[2021-10-10] MEDS ORDERED: HALO5TAB2 PO (08:51)
== END 2021-10-01 23:27 | disposition left against medical advice (07) ==
LOC: EMS 20:37
DX: Z53.21 Procedure and treatment not carried out due to patient leaving prior to being seen by health care provider (principal)

== ENCOUNTER 2021-10-02 00:14 | Emergency (ER) | payer MEDICARE, OTHER ==
[~2021-10-02] VITALS: Ht 180.3 cm; Wt 95.5 kg
[2021-10-02 00:18] VITALS: BP 119/63
[2021-10-02] MEDS ORDERED: LORazepam 2 MG TABLET PO ONE (03:00)
== END 2021-10-02 04:00 | disposition left against medical advice (07) ==
LOC: EMS 00:17
DX: R44.0 Auditory hallucinations (principal); Z53.21 Procedure and treatment not carried out due to patient leaving prior to being seen by health care provider

== ENCOUNTER 2021-10-02 13:30 | Emergency (ER) | payer MEDICARE, OTHER ==
[~2021-10-02] VITALS: Ht 175.3 cm; Wt 84.1 kg
[2021-10-02 13:37] VITALS: BP 133/69
== END 2021-10-02 16:14 | disposition left against medical advice (07) ==
LOC: EMS 13:30
DX: F24 Shared psychotic disorder (principal); F15.90 Other stimulant use, unspecified, uncomplicated; Z53.21 Procedure and treatment not carried out due to patient leaving prior to being seen by health care provider

== ENCOUNTER 2021-10-04 14:22 | Emergency (ER) | payer MEDICARE, OTHER ==
[~2021-10-04] VITALS: Ht 180.3 cm; Wt 97.3 kg
[2021-10-04] MEDS ORDERED: OLAN10TA74 PO (14:29)
[2021-10-04] MEDS ORDERED: TRAZ-257 PO (14:29)
[2021-10-04] MEDS ORDERED: ALBU8HFA IH (14:29)
[2021-10-04 15:30] VITALS: BP 138/82
[2021-10-10] MEDS ORDERED: HALO5TAB2 PO (08:51)
== END 2021-10-04 16:51 | disposition home or self-care (01) ==
LOC: EDUNIT# 14:22 → EMS 14:22
DX: F15.959 Other stimulant use, unspecified with stimulant-induced psychotic disorder, unspecified (principal); F20.9 Schizophrenia, unspecified; F17.210 Nicotine dependence, cigarettes, uncomplicated; F15.90 Other stimulant use, unspecified, uncomplicated; Z98.890 Other specified postprocedural states
CPT/HCPCS: 99281; 99284; Z7502

== ENCOUNTER 2021-10-05 01:24 | Emergency (ER) | payer MEDICARE, OTHER ==
[~2021-10-05] VITALS: Ht 185.4 cm; Wt 88.6 kg
[~2021-10-05 01:24] MED LIST changes: +ALBU8HFA IH; +OLAN10TA74 PO
[2021-10-05 01:33] VITALS: BP 143/98
[2021-10-05 01:48] LABS: BASOPHILS % (AUTO) 0.4 % (0.0-2.0); EOSINOPHILS % (AUTO) 1.3 % (1.0-6.0); HEMATOCRIT 44.1 % (41-53); HEMOGLOBIN 15.3 g/dL (13.5-17.5); LYMPHOCYTES % (AUTO) 21.9 % (22.0-44.0); MEAN CORPUSCULAR HEMOGLOBIN 30.8 pg (26.0-34.0); MEAN CORPUSCULAR HGB CONC 34.7 G/dL (31.0-37.0); MEAN CORPUSCULAR VOLUME 89 fL (80-100); MONOCYTES # (AUTO) 0.8 K/uL (0.1-1.0); MONOCYTES % (AUTO) 5.9 % (2.0-9.0); NEUTROPHILS # (AUTO) 9.6 K/uL (1.8-7.7); NEUTROPHILS % (AUTO) 70.5 % (40.0-70.0); PLATELET COUNT (AUTO) 353 K/uL (150-450); RED BLOOD CELL COUNT(AUTO) 4.97 MIL/uL (4.50-5.90); RED CELL DISTRIBUTION WIDTH 13.5 % (11.5-14.5)
[2021-10-05 01:57] LABS: ANION GAP 14 mmol/L (8-16); CALCIUM, TOTAL 9.1 mg/dL (8.8-10.5); CARBON DIOXIDE 23 mmol/L (22-29); CHLORIDE 104 mmol/L (98-107); CREATININE 0.92 mg/dL (0.60-1.30); GLOMERULAR FILTR. RATE CALC > 60 mL/min (>60); GLUCOSE,RANDOM 132 mg/dL (70-110); POTASSIUM 4.2 mmol/L (3.5-5.1); SODIUM SERUM 141 mmol/L (136-145); UREA NITROGEN, BLOOD 10 mg/dL (7-18)
[2021-10-05 02:03] LABS: ALANINE AMINOTRANSFERASE 42 U/L (12-78); ALBUMIN 4.2 g/dL (3.4-5.0); ALKALINE PHOSPHATASE 99 U/L (46-116); ASPARTATE AMINOTRANSFERASE 22 U/L (15-37); BILIRUBIN,TOTAL 0.2 mg/dL (0.1-1.0); TOTAL PROTEIN, SERUM 7.6 g/dL (6.4-8.2)
[2021-10-05] MEDS ORDERED: HALOPERIDOL 5 MG TABLET PO ONE (03:00)
[2021-10-05] MEDS ORDERED: LORazepam 1 MG TABLET PO ONE (03:00)
[2021-10-10] MEDS ORDERED: HALO5TAB2 PO (08:51)
== END 2021-10-05 04:56 | disposition home or self-care (01) ==
LOC: EMS 01:27
DX: F24 Shared psychotic disorder (principal); F15.90 Other stimulant use, unspecified, uncomplicated; F17.210 Nicotine dependence, cigarettes, uncomplicated; F20.9 Schizophrenia, unspecified
CPT/HCPCS: 36415; 80053; 85025; 99283; G0480

== ENCOUNTER 2021-10-06 14:33 | Emergency (ER) | payer MEDICARE, OTHER ==
[~2021-10-06] VITALS: Ht 180.3 cm; Wt 97.0 kg
[2021-10-06] MEDS ORDERED: HALOPERIDOL 5 MG TABLET PO ONE (14:45)
[2021-10-06 15:18] LABS: BASOPHILS % (AUTO) 0.4 % (0.0-2.0); EOSINOPHILS % (AUTO) 1.2 % (1.0-6.0); HEMATOCRIT 45.1 % (41-53); HEMOGLOBIN 15.5 g/dL (13.5-17.5); LYMPHOCYTES # (AUTO) 2.4 K/uL (1.0-4.8); LYMPHOCYTES % (AUTO) 15.2 % (22.0-44.0); MEAN CORPUSCULAR HEMOGLOBIN 30.4 pg (26.0-34.0); MEAN CORPUSCULAR HGB CONC 34.3 G/dL (31.0-37.0); MEAN CORPUSCULAR VOLUME 89 fL (80-100); MONOCYTES # (AUTO) 0.7 K/uL (0.1-1.0); MONOCYTES % (AUTO) 4.8 % (2.0-9.0); NEUTROPHILS # (AUTO) 12.3 K/uL (1.8-7.7); NEUTROPHILS % (AUTO) 78.4 % (40.0-70.0); PLATELET COUNT (AUTO) 375 K/uL (150-450); RED BLOOD CELL COUNT(AUTO) 5.09 MIL/uL (4.50-5.90); RED CELL DISTRIBUTION WIDTH 13.7 % (11.5-14.5)
[2021-10-06 15:52] LABS: ANION GAP 12 mmol/L (8-16); CALCIUM, TOTAL 9.5 mg/dL (8.8-10.5); CARBON DIOXIDE 24 mmol/L (22-29); CHLORIDE 102 mmol/L (98-107); CREATININE 0.91 mg/dL (0.60-1.30); GLOMERULAR FILTR. RATE CALC > 60 mL/min (>60); GLUCOSE,RANDOM 153 mg/dL (70-110); POTASSIUM 4.2 mmol/L (3.5-5.1); SODIUM SERUM 138 mmol/L (136-145); UREA NITROGEN, BLOOD 13 mg/dL (7-18)
[2021-10-06 16:06] LABS: ALANINE AMINOTRANSFERASE 53 U/L (12-78); ALBUMIN 4.1 g/dL (3.4-5.0); ALKALINE PHOSPHATASE 100 U/L (46-116); ASPARTATE AMINOTRANSFERASE 25 U/L (15-37); BILIRUBIN,TOTAL 0.2 mg/dL (0.1-1.0); TOTAL PROTEIN, SERUM 7.7 g/dL (6.4-8.2)
[2021-10-06] MEDS ORDERED: LORazepam 2 MG TABLET PO PRN (16:45)
[2021-10-06] MEDS ORDERED: ZOLPIDEM TARTRATE 10 MG TABLET PO PRN (16:45)
[2021-10-06] MEDS ORDERED: HALOPERIDOL 5 MG TABLET PO PRN (16:45)
[2021-10-06 18:38] LABS: COVID AG,FIA SOURCE NASOPHARYNGEAL
[2021-10-06 20:30] LABS: APPEARANCE,URINE CLEAR (CLEAR); BILIRUBIN,URINE NEGATIVE (NEGATIVE); GLUCOSE, URINE (UA) NEGATIVE (NEGATIVE); KETONES,URINE NEGATIVE (NEGATIVE); LEUKOCYTE ESTERASE ,URINE NEGATIVE (NEGATIVE); NITRATE,URINE NEGATIVE (NEGATIVE); OCCULT BLOOD,URINE NEGATIVE (NEGATIVE); PROTEIN,URINE NEGATIVE (NEGATIVE); SPECIFIC GRAVITIY, URINE 1.009 (1.003-1.030); UROBILINOGEN,URINE <=1.0 mg/dL (<=1.0)
[2021-10-06 20:37] LABS: AMPHET/METH SCREEN,URINE POSITIVE (NEGATIVE); BARBITURATE SCREEN, URINE NEGATIVE (NEGATIVE); BENZODIAZEPINES SCREEN,URINE NEGATIVE (NEGATIVE); CANNABINOID SCREEN,URINE NEGATIVE (NEGATIVE); COCAINE SCREEN,URINE NEGATIVE (NEGATIVE); METHADONE SCREEN, URINE NEGATIVE (NEGATIVE); OPIATE SCREEN,URINE NEGATIVE (NEGATIVE)
[2021-10-06 20:38] LABS: PHENCYCLIDINE SCREEN,URINE NEGATIVE (NEGATIVE)
[2021-10-07 04:10] VITALS: BP 128/82
[2021-10-07] MEDS ORDERED: NICOTINE 7 MG/24 HOUR PATCH TD ONE (07:15)
[2021-10-10] MEDS ORDERED: HALO5TAB2 PO (08:51)
== END 2021-10-07 09:44 | disposition home or self-care (01) ==
LOC: EMS 14:36
DX: F25.9 Schizoaffective disorder, unspecified (principal); F15.10 Other stimulant abuse, uncomplicated; F17.210 Nicotine dependence, cigarettes, uncomplicated; F19.90 Other psychoactive substance use, unspecified, uncomplicated; Z20.822 Contact with and (suspected) exposure to COVID-19
CPT/HCPCS: 36415; 80053; 80307; 81003; 85025; 87426; 99284; G0480

== ENCOUNTER 2021-10-10 23:46 | Emergency (ER) | payer MEDICARE, MEDICAID ==
[~2021-10-10] VITALS: Ht 182.9 cm; Wt 97.0 kg
[~2021-10-10 23:46] MED LIST changes: +HALO5TAB2 PO; -OLAN10 PO
[2021-10-10 23:47] VITALS: BP 123/68
[2021-10-11] MEDS ORDERED: HALO10 PO (15:56)
== END 2021-10-11 00:30 | disposition left against medical advice (07) ==
LOC: EMS 23:47
DX: R45.89 Other symptoms and signs involving emotional state (principal); Z53.21 Procedure and treatment not carried out due to patient leaving prior to being seen by health care provider

== ENCOUNTER 2021-10-11 05:15 | Emergency (ER) | payer MEDICARE, OTHER ==
[~2021-10-11] VITALS: Ht 182.9 cm; Wt 97.0 kg
[2021-10-11] MEDS ORDERED: LORazepam 1 MG TABLET PO ONE (06:45)
[2021-10-11 09:11] VITALS: BP 128/76
[2021-10-11] MEDS ORDERED: HALO10 PO (15:56)
== END 2021-10-11 09:15 | disposition home or self-care (01) ==
LOC: EMS 05:15
DX: F15.90 Other stimulant use, unspecified, uncomplicated (principal); F22 Delusional disorders; F31.9 Bipolar disorder, unspecified; F20.9 Schizophrenia, unspecified; J45.909 Unspecified asthma, uncomplicated; F17.210 Nicotine dependence, cigarettes, uncomplicated
CPT/HCPCS: 99283

== ENCOUNTER 2021-10-12 15:33 | Emergency (ER) | payer MEDICARE, OTHER ==
[~2021-10-12] VITALS: Ht 180.3 cm; Wt 97.0 kg
[~2021-10-12 15:33] MED LIST changes: -ALBU8HFA IH; +HALO10 PO; -OLAN10TA74 PO; -TRAZ-257 PO
[2021-10-12] MEDS ORDERED: HydrOXYzine PAMOATE 50 MG CAPSULE PO ONE (17:00)
[2021-10-12 17:20] LABS: BASOPHILS % (AUTO) 0.2 % (0.0-2.0); EOSINOPHILS % (AUTO) 0.5 % (1.0-6.0); HEMATOCRIT 45.2 % (41-53); HEMOGLOBIN 15.4 g/dL (13.5-17.5); LYMPHOCYTES # (AUTO) 1.1 K/uL (1.0-4.8); LYMPHOCYTES % (AUTO) 5.9 % (22.0-44.0); MEAN CORPUSCULAR HEMOGLOBIN 30.3 pg (26.0-34.0); MEAN CORPUSCULAR HGB CONC 34.2 G/dL (31.0-37.0); MEAN CORPUSCULAR VOLUME 89 fL (80-100); MONOCYTES % (AUTO) 5.4 % (2.0-9.0); NEUTROPHILS # (AUTO) 15.7 K/uL (1.8-7.7); PLATELET COUNT (AUTO) 293 K/uL (150-450); RED BLOOD CELL COUNT(AUTO) 5.09 MIL/uL (4.50-5.90); RED CELL DISTRIBUTION WIDTH 13.3 % (11.5-14.5)
[2021-10-12 17:48] LABS: AMPHET/METH SCREEN,URINE POSITIVE (NEGATIVE); BARBITURATE SCREEN, URINE NEGATIVE (NEGATIVE); BENZODIAZEPINES SCREEN,URINE NEGATIVE (NEGATIVE); CANNABINOID SCREEN,URINE NEGATIVE (NEGATIVE); COCAINE SCREEN,URINE NEGATIVE (NEGATIVE); METHADONE SCREEN, URINE NEGATIVE (NEGATIVE); OPIATE SCREEN,URINE NEGATIVE (NEGATIVE)
[2021-10-12 17:49] LABS: PHENCYCLIDINE SCREEN,URINE NEGATIVE (NEGATIVE)
[2021-10-12] MEDS ORDERED: LORazepam 1 MG TABLET PO ONE (18:15)
[2021-10-12 18:34] LABS: ANION GAP 11 mmol/L (8-16); CALCIUM, TOTAL 9.1 mg/dL (8.8-10.5); CARBON DIOXIDE 24 mmol/L (22-29); CHLORIDE 100 mmol/L (98-107); CREATININE 0.93 mg/dL (0.60-1.30); GLOMERULAR FILTR. RATE CALC > 60 mL/min (>60); GLUCOSE,RANDOM 117 mg/dL (70-110); POTASSIUM 3.9 mmol/L (3.5-5.1); SODIUM SERUM 135 mmol/L (136-145); UREA NITROGEN, BLOOD 9 mg/dL (7-18)
[2021-10-12 18:40] LABS: ALANINE AMINOTRANSFERASE 40 U/L (12-78); ALBUMIN 4.1 g/dL (3.4-5.0); ALKALINE PHOSPHATASE 103 U/L (46-116); ASPARTATE AMINOTRANSFERASE 20 U/L (15-37); BILIRUBIN,TOTAL 0.5 mg/dL (0.1-1.0); TOTAL PROTEIN, SERUM 7.5 g/dL (6.4-8.2)
[2021-10-12 19:12] VITALS: BP 122/77
== END 2021-10-12 19:13 | disposition home or self-care (01) ==
LOC: EMS 15:37
DX: F15.10 Other stimulant abuse, uncomplicated (principal); F31.10 Bipolar disorder, current episode manic without psychotic features, unspecified; J45.909 Unspecified asthma, uncomplicated; F20.9 Schizophrenia, unspecified; F17.210 Nicotine dependence, cigarettes, uncomplicated; Z98.890 Other specified postprocedural states
CPT/HCPCS: 80053; 85025; 99283

== ENCOUNTER 2021-10-22 10:36 | Emergency (ER) | payer MEDICARE, OTHER ==
[~2021-10-22] VITALS: Ht 180.3 cm; Wt 97.0 kg
[~2021-10-22 10:36] MED LIST changes: -HALO10 PO; +HALO10TA21 PO
[2021-10-22 10:42] VITALS: BP 129/74
[2021-10-22] MEDS ORDERED: HALO10TA21 PO (11:11)
[2021-10-22] MEDS ORDERED: ALBUTEROL SULFATE HFA 90 MCG/PUFF 8 GM INHALER IH ONE (11:15)
== END 2021-10-22 12:37 | disposition home or self-care (01) ==
LOC: EMS 10:36
DX: F20.9 Schizophrenia, unspecified (principal); J45.909 Unspecified asthma, uncomplicated; F31.9 Bipolar disorder, unspecified; F15.90 Other stimulant use, unspecified, uncomplicated; F17.210 Nicotine dependence, cigarettes, uncomplicated; Z76.0 Encounter for issue of repeat prescription; Z79.899 Other long term (current) drug therapy
CPT/HCPCS: 94640; 99283; J3535

== ENCOUNTER 2021-10-27 19:09 | Emergency (ER) | payer MEDICARE, OTHER | END 2021-10-27 21:16 | disposition left against medical advice (07) | LOC: EMS 19:16 | DX: Z00.00 Encounter for general adult medical examination without abnormal findings (principal); Z53.21 Procedure and treatment not carried out due to patient leaving prior to being seen by health care provider ==

== ENCOUNTER 2021-11-12 15:02 | Emergency (ER) | payer MEDICARE, OTHER ==
[~2021-11-12] VITALS: Ht 180.3 cm; Wt 95.5 kg
[2021-11-12 15:27] VITALS: BP 130/72
== END 2021-11-12 17:30 | disposition home or self-care (01) ==
LOC: EMS 15:02
DX: F29 Unspecified psychosis not due to a substance or known physiological condition (principal); F15.90 Other stimulant use, unspecified, uncomplicated; F31.9 Bipolar disorder, unspecified; F20.9 Schizophrenia, unspecified; J45.909 Unspecified asthma, uncomplicated; F17.210 Nicotine dependence, cigarettes, uncomplicated; Z79.899 Other long term (current) drug therapy
CPT/HCPCS: 99281; Z7502

== ENCOUNTER 2021-12-04 17:20 | Emergency (ER) | payer MEDICARE, OTHER ==
[~2021-12-04] VITALS: Ht 180.3 cm; Wt 94.5 kg
[2021-12-04 17:54] VITALS: BP 132/81
== END 2021-12-04 20:16 | disposition left against medical advice (07) ==
LOC: EMS 18:01
DX: Z53.21 Procedure and treatment not carried out due to patient leaving prior to being seen by health care provider (principal); Z79.899 Other long term (current) drug therapy
CPT/HCPCS: 93005

== ENCOUNTER 2021-12-12 09:56 | Emergency (ER) | payer MEDICARE, OTHER ==
[~2021-12-12] VITALS: Ht 180.3 cm; Wt 95.5 kg
[2021-12-12 11:39] LABS: BASOPHILS % (AUTO) 0.4 % (0.0-2.0); EOSINOPHILS % (AUTO) 2.1 % (1.0-6.0); HEMATOCRIT 44.3 % (41-53); HEMOGLOBIN 15.3 g/dL (13.5-17.5); LYMPHOCYTES # (AUTO) 1.9 K/uL (1.0-4.8); LYMPHOCYTES % (AUTO) 18.3 % (22.0-44.0); MEAN CORPUSCULAR HEMOGLOBIN 30.9 pg (26.0-34.0); MEAN CORPUSCULAR HGB CONC 34.6 G/dL (31.0-37.0); MEAN CORPUSCULAR VOLUME 89 fL (80-100); MONOCYTES # (AUTO) 0.7 K/uL (0.1-1.0); MONOCYTES % (AUTO) 6.6 % (2.0-9.0); NEUTROPHILS # (AUTO) 7.7 K/uL (1.8-7.7); NEUTROPHILS % (AUTO) 72.6 % (40.0-70.0); PLATELET COUNT (AUTO) 299 K/uL (150-450); RED BLOOD CELL COUNT(AUTO) 4.97 MIL/uL (4.50-5.90); RED CELL DISTRIBUTION WIDTH 13.5 % (11.5-14.5)
[2021-12-12 11:52] LABS: ANION GAP 10 mmol/L (8-16); CALCIUM, TOTAL 9.3 mg/dL (8.8-10.5); CARBON DIOXIDE 26 mmol/L (22-29); CHLORIDE 103 mmol/L (98-107); CREATININE 1.05 mg/dL (0.60-1.30); GLOMERULAR FILTR. RATE CALC > 60 mL/min (>60); GLUCOSE,RANDOM 100 mg/dL (70-110); POTASSIUM 4.5 mmol/L (3.5-5.1); SODIUM SERUM 139 mmol/L (136-145); UREA NITROGEN, BLOOD 8 mg/dL (7-18)
[2021-12-12 11:57] LABS: ALANINE AMINOTRANSFERASE 37 U/L (12-78); ALBUMIN 3.8 g/dL (3.4-5.0); ALKALINE PHOSPHATASE 89 U/L (46-116); ASPARTATE AMINOTRANSFERASE 16 U/L (15-37); BILIRUBIN,TOTAL 0.5 mg/dL (0.1-1.0)
[2021-12-12] MEDS ORDERED: OLANZapine 5 MG TABLET PO ONE (13:00)
[2021-12-12] MEDS ORDERED: LORazepam 2 MG TABLET PO ONE (13:00)
[2021-12-12 13:43] LABS: AMPHET/METH SCREEN,URINE POSITIVE (NEGATIVE); BARBITURATE SCREEN, URINE NEGATIVE (NEGATIVE); BENZODIAZEPINES SCREEN,URINE NEGATIVE (NEGATIVE); CANNABINOID SCREEN,URINE NEGATIVE (NEGATIVE); COCAINE SCREEN,URINE NEGATIVE (NEGATIVE); METHADONE SCREEN, URINE NEGATIVE (NEGATIVE); OPIATE SCREEN,URINE NEGATIVE (NEGATIVE)
[2021-12-12 13:44] LABS: PHENCYCLIDINE SCREEN,URINE NEGATIVE (NEGATIVE)
[2021-12-12 13:54] VITALS: BP 136/73
[2021-12-12] MEDS ORDERED: ALBU8.5H8 IH (14:06)
[2021-12-12] MEDS ORDERED: LORA-1001 PO (14:06)
[2021-12-12] MEDS ORDERED: OLAN5TAB52 PO (14:06)
[2021-12-13] MEDS ORDERED: OLAN5TAB52 PO (15:28)
== END 2021-12-12 15:10 | disposition home or self-care (01) ==
LOC: EMS 10:00
DX: F31.9 Bipolar disorder, unspecified (principal); F15.10 Other stimulant abuse, uncomplicated; F41.9 Anxiety disorder, unspecified; F20.9 Schizophrenia, unspecified; J45.909 Unspecified asthma, uncomplicated; F17.210 Nicotine dependence, cigarettes, uncomplicated; Z79.899 Other long term (current) drug therapy
CPT/HCPCS: 99283; 80053; 85025; 36415; 80307; G0480

== ENCOUNTER 2021-12-13 13:10 | Emergency (ER) | payer MEDICARE, OTHER ==
[~2021-12-13] VITALS: Ht 180.3 cm; Wt 94.5 kg
[~2021-12-13 13:10] MED LIST changes: +ALBU8.5H8 IH; +LORA-1001 PO; +OLAN5TAB52 PO
[2021-12-13] MEDS ORDERED: OLANZapine 5 MG TABLET PO ONE (15:00)
[2021-12-13 15:22] VITALS: BP 122/67
[2021-12-13] MEDS ORDERED: OLAN5TAB52 PO (15:28)
== END 2021-12-13 15:41 | disposition home or self-care (01) ==
LOC: EMS 13:11
DX: F20.9 Schizophrenia, unspecified (principal); J45.909 Unspecified asthma, uncomplicated; F31.9 Bipolar disorder, unspecified; F17.210 Nicotine dependence, cigarettes, uncomplicated; F15.90 Other stimulant use, unspecified, uncomplicated; Z98.890 Other specified postprocedural states
CPT/HCPCS: 99281; 99283

== ENCOUNTER 2021-12-14 10:20 | Emergency (ER) | payer MEDICARE, OTHER ==
[~2021-12-14] VITALS: Ht 180.3 cm; Wt 94.5 kg
[2021-12-14 11:09] VITALS: BP 113/85
[2021-12-14 11:30] LABS: BASOPHILS % (AUTO) 0.6 % (0.0-2.0); EOSINOPHILS % (AUTO) 1.6 % (1.0-6.0); HEMATOCRIT 44.6 % (41-53); HEMOGLOBIN 15.4 g/dL (13.5-17.5); LYMPHOCYTES # (AUTO) 2.1 K/uL (1.0-4.8); MEAN CORPUSCULAR HEMOGLOBIN 30.4 pg (26.0-34.0); MEAN CORPUSCULAR HGB CONC 34.5 G/dL (31.0-37.0); MEAN CORPUSCULAR VOLUME 88 fL (80-100); MONOCYTES # (AUTO) 0.5 K/uL (0.1-1.0); MONOCYTES % (AUTO) 5.7 % (2.0-9.0); NEUTROPHILS # (AUTO) 6.3 K/uL (1.8-7.7); NEUTROPHILS % (AUTO) 69.1 % (40.0-70.0); PLATELET COUNT (AUTO) 329 K/uL (150-450); RED BLOOD CELL COUNT(AUTO) 5.06 MIL/uL (4.50-5.90); RED CELL DISTRIBUTION WIDTH 13.7 % (11.5-14.5)
[2021-12-14 11:49] LABS: ANION GAP 12 mmol/L (8-16); CALCIUM, TOTAL 9.4 mg/dL (8.8-10.5); CARBON DIOXIDE 22 mmol/L (22-29); CHLORIDE 106 mmol/L (98-107); CREATININE 1.04 mg/dL (0.60-1.30); GLOMERULAR FILTR. RATE CALC > 60 mL/min (>60); GLUCOSE,RANDOM 86 mg/dL (70-110); POTASSIUM 3.9 mmol/L (3.5-5.1); SODIUM SERUM 140 mmol/L (136-145); UREA NITROGEN, BLOOD 8 mg/dL (7-18)
[2021-12-14] MEDS ORDERED: LORazepam 2 MG TABLET PO ONE (12:00)
[2021-12-14] MEDS ORDERED: HALOPERIDOL 5 MG TABLET PO ONE (12:00)
[2021-12-14 12:07] LABS: ALANINE AMINOTRANSFERASE 32 U/L (12-78); ALBUMIN 3.8 g/dL (3.4-5.0); ALKALINE PHOSPHATASE 83 U/L (46-116); ASPARTATE AMINOTRANSFERASE 6 U/L (15-37); BILIRUBIN,TOTAL 0.4 mg/dL (0.1-1.0); TOTAL PROTEIN, SERUM 6.9 g/dL (6.4-8.2)
[2021-12-14 13:01] LABS: AMPHET/METH SCREEN,URINE POSITIVE (NEGATIVE); BARBITURATE SCREEN, URINE NEGATIVE (NEGATIVE); BENZODIAZEPINES SCREEN,URINE NEGATIVE (NEGATIVE); CANNABINOID SCREEN,URINE NEGATIVE (NEGATIVE); COCAINE SCREEN,URINE NEGATIVE (NEGATIVE); METHADONE SCREEN, URINE NEGATIVE (NEGATIVE); OPIATE SCREEN,URINE NEGATIVE (NEGATIVE)
[2021-12-14 13:02] LABS: PHENCYCLIDINE SCREEN,URINE NEGATIVE (NEGATIVE)
== END 2021-12-14 13:12 | disposition home or self-care (01) ==
LOC: EMS 10:20
DX: F20.9 Schizophrenia, unspecified (principal); J45.909 Unspecified asthma, uncomplicated; F31.9 Bipolar disorder, unspecified; F17.210 Nicotine dependence, cigarettes, uncomplicated; F15.90 Other stimulant use, unspecified, uncomplicated; Z98.890 Other specified postprocedural states
CPT/HCPCS: 99284; 80053; 85025; 36415; 80307; G0480; 99283

== ENCOUNTER 2021-12-15 13:50 | Emergency (ER) | payer MEDICARE, OTHER ==
[~2021-12-15] VITALS: Ht 180.3 cm; Wt 94.5 kg
[2021-12-15 13:52] VITALS: BP 110/74
== END 2021-12-15 14:43 | disposition left against medical advice (07) ==
LOC: EMS 13:50
DX: F22 Delusional disorders (principal); Z53.21 Procedure and treatment not carried out due to patient leaving prior to being seen by health care provider

== ENCOUNTER 2021-12-16 10:29 | Emergency (ER) | payer MEDICARE, OTHER ==
[~2021-12-16] VITALS: Ht 180.3 cm; Wt 94.5 kg
[2021-12-16 11:13] LABS: BASOPHILS % (AUTO) 0.5 % (0.0-2.0); EOSINOPHILS % (AUTO) 3.3 % (1.0-6.0); HEMATOCRIT 43.4 % (41-53); LYMPHOCYTES % (AUTO) 20.7 % (22.0-44.0); MEAN CORPUSCULAR HEMOGLOBIN 30.9 pg (26.0-34.0); MEAN CORPUSCULAR HGB CONC 34.5 G/dL (31.0-37.0); MEAN CORPUSCULAR VOLUME 90 fL (80-100); MONOCYTES # (AUTO) 0.6 K/uL (0.1-1.0); MONOCYTES % (AUTO) 5.9 % (2.0-9.0); NEUTROPHILS # (AUTO) 6.6 K/uL (1.8-7.7); NEUTROPHILS % (AUTO) 69.6 % (40.0-70.0); PLATELET COUNT (AUTO) 316 K/uL (150-450); RED BLOOD CELL COUNT(AUTO) 4.84 MIL/uL (4.50-5.90); RED CELL DISTRIBUTION WIDTH 13.5 % (11.5-14.5)
[2021-12-16 11:27] LABS: ANION GAP 5 mmol/L (8-16); CALCIUM, TOTAL 9.1 mg/dL (8.8-10.5); CARBON DIOXIDE 27 mmol/L (22-29); CHLORIDE 105 mmol/L (98-107); GLUCOSE,RANDOM 96 mg/dL (70-110); SODIUM SERUM 137 mmol/L (136-145); UREA NITROGEN, BLOOD 6 mg/dL (7-18)
[2021-12-16 11:29] LABS: GLOMERULAR FILTR. RATE CALC > 60 mL/min (>60)
[2021-12-16 11:33] LABS: ALANINE AMINOTRANSFERASE 33 U/L (12-78); ALBUMIN 3.9 g/dL (3.4-5.0); ALKALINE PHOSPHATASE 96 U/L (46-116); ASPARTATE AMINOTRANSFERASE 17 U/L (15-37); BILIRUBIN,TOTAL 0.4 mg/dL (0.1-1.0); TOTAL PROTEIN, SERUM 7.2 g/dL (6.4-8.2)
[2021-12-16] MEDS ORDERED: LORazepam 1 MG TABLET PO ONE (11:45)
[2021-12-16 12:54] VITALS: BP 135/48
== END 2021-12-16 12:59 | disposition home or self-care (01) ==
LOC: EMS 10:29
DX: F25.9 Schizoaffective disorder, unspecified (principal); F31.9 Bipolar disorder, unspecified; J45.909 Unspecified asthma, uncomplicated; F15.90 Other stimulant use, unspecified, uncomplicated; F17.210 Nicotine dependence, cigarettes, uncomplicated; Z79.899 Other long term (current) drug therapy
CPT/HCPCS: 99283; 80053; 85025; 36415; G0480

== ENCOUNTER 2022-01-13 18:10 | Emergency (ER) | payer MEDICARE, OTHER ==
[~2022-01-13] VITALS: Ht 185.4 cm; Wt 72.7 kg
[~2022-01-13 18:10] MED LIST changes: -HALO10TA21 PO; -HALO5TAB2 PO; -LORA-1001 PO; -OLAN5TAB52 PO
[2022-01-13] MEDS ORDERED: OLANZapine 5 MG TABLET PO ONE (18:30)
[2022-01-13] MEDS ORDERED: HALOPERIDOL 5 MG TABLET PO ONE (18:30)
[2022-01-13 18:35] VITALS: BP 154/86
== END 2022-01-13 20:59 | disposition home or self-care (01) ==
LOC: EMS 18:10
DX: F41.9 Anxiety disorder, unspecified (principal); F15.10 Other stimulant abuse, uncomplicated; F25.1 Schizoaffective disorder, depressive type; J45.909 Unspecified asthma, uncomplicated; F17.210 Nicotine dependence, cigarettes, uncomplicated
CPT/HCPCS: 99283

== ENCOUNTER 2022-01-17 15:48 | Emergency (ER) | payer MEDICARE, OTHER ==
[~2022-01-17] VITALS: Ht 180.3 cm; Wt 90.9 kg
[2022-01-17] MEDS ORDERED: OLAN5TAB77 PO (15:53)
[2022-01-17] MEDS ORDERED: HALO10TA20 PO (15:53)
[2022-01-17] MEDS ORDERED: OLANZapine 5 MG TABLET PO ONE (17:15)
[2022-01-17 17:30] VITALS: BP 117/70
== END 2022-01-17 17:57 | disposition home or self-care (01) ==
LOC: EMS 15:50
DX: F41.9 Anxiety disorder, unspecified (principal); J45.909 Unspecified asthma, uncomplicated; F20.9 Schizophrenia, unspecified; F17.210 Nicotine dependence, cigarettes, uncomplicated; F15.90 Other stimulant use, unspecified, uncomplicated; Z98.890 Other specified postprocedural states; Z76.0 Encounter for issue of repeat prescription
CPT/HCPCS: 99283

== ENCOUNTER 2022-01-22 10:54 | Emergency (ER) | payer MEDICARE, OTHER ==
[~2022-01-22] VITALS: Ht 180.3 cm; Wt 90.9 kg
[~2022-01-22 10:54] MED LIST changes: +HALO10TA20 PO; +OLAN5TAB77 PO
[2022-01-22 10:55] VITALS: BP 113/68
[2022-01-22] MEDS ORDERED: TRAZ-257 PO (11:22)
[2022-01-22] MEDS ORDERED: OLAN10TA74 PO (11:22)
[2022-01-22] MEDS ORDERED: OLANZapine 5 MG TABLET PO ONE (11:30)
[2022-01-22] MEDS ORDERED: HALOPERIDOL 5 MG TABLET PO ONE (11:30)
== END 2022-01-22 11:44 | disposition home or self-care (01) ==
LOC: EMS 10:54
DX: F31.9 Bipolar disorder, unspecified (principal); F15.10 Other stimulant abuse, uncomplicated; F17.210 Nicotine dependence, cigarettes, uncomplicated; F20.9 Schizophrenia, unspecified; J45.909 Unspecified asthma, uncomplicated; Z98.890 Other specified postprocedural states
CPT/HCPCS: 99283; 99284

== ENCOUNTER 2022-01-27 21:07 | Emergency (ER) | payer MEDICARE, OTHER ==
[~2022-01-27] VITALS: Ht 180.3 cm; Wt 90.9 kg
[~2022-01-27 21:07] MED LIST changes: +OLAN10TA74 PO; -OLAN5TAB77 PO; +TRAZ-257 PO
[2022-01-27 21:10] VITALS: BP 125/67
[2022-01-27] MEDS ORDERED: ALBUTEROL SULFATE HFA 90 MCG/PUFF 8 GM INHALER IH ONE (21:15)
[2022-01-27] MEDS ORDERED: ALBU8HFA IH (21:23)
== END 2022-01-27 21:34 | disposition home or self-care (01) ==
LOC: EMS 21:07
DX: J45.909 Unspecified asthma, uncomplicated (principal); Z76.0 Encounter for issue of repeat prescription; F31.9 Bipolar disorder, unspecified; F20.9 Schizophrenia, unspecified; F17.210 Nicotine dependence, cigarettes, uncomplicated; F15.90 Other stimulant use, unspecified, uncomplicated; F19.90 Other psychoactive substance use, unspecified, uncomplicated; Z98.890 Other specified postprocedural states
CPT/HCPCS: 94640; 99283; J3535

== ENCOUNTER 2022-01-30 04:08 | Emergency (ER) | payer MEDICARE, OTHER ==
[~2022-01-30] VITALS: Ht 180.3 cm; Wt 93.2 kg
[~2022-01-30 04:08] MED LIST changes: -ALBU8.5H8 IH; +ALBU8HFA IH
[2022-01-30] MEDS ORDERED: LORazepam 2 MG TABLET PO ONE (04:30)
[2022-01-30 05:40] VITALS: BP 124/74
== END 2022-01-30 05:45 | disposition home or self-care (01) ==
LOC: EMS 04:08
DX: F15.10 Other stimulant abuse, uncomplicated (principal); F22 Delusional disorders; J45.909 Unspecified asthma, uncomplicated; F31.9 Bipolar disorder, unspecified; F20.9 Schizophrenia, unspecified; F17.210 Nicotine dependence, cigarettes, uncomplicated; Z98.890 Other specified postprocedural states
CPT/HCPCS: 99283; 99284

== ENCOUNTER 2022-02-01 17:41 | Inpatient (IN) | payer MEDICARE, MEDICAID ==
[~2022-02-01] VITALS: Ht 177.8 cm; Wt 79.4 kg
[2022-02-01 22:56] LABS: BASOPHILS % (AUTO) 0.4 % (0.0-2.0); EOSINOPHILS % (AUTO) 2.2 % (1.0-6.0); HEMATOCRIT 41.2 % (41-53); LYMPHOCYTES # (AUTO) 2.2 K/uL (1.0-4.8); LYMPHOCYTES % (AUTO) 21.7 % (22.0-44.0); MEAN CORPUSCULAR HEMOGLOBIN 30.7 pg (26.0-34.0); MEAN CORPUSCULAR VOLUME 90 fL (80-100); MONOCYTES # (AUTO) 0.5 K/uL (0.1-1.0); MONOCYTES % (AUTO) 4.7 % (2.0-9.0); NEUTROPHILS # (AUTO) 7.2 K/uL (1.8-7.7); PLATELET COUNT (AUTO) 303 K/uL (150-450); RED BLOOD CELL COUNT(AUTO) 4.57 MIL/uL (4.50-5.90); RED CELL DISTRIBUTION WIDTH 13.5 % (11.5-14.5)
[2022-02-01 23:04] LABS: ANION GAP 13 mmol/L (8-16); CALCIUM, TOTAL 8.7 mg/dL (8.8-10.5); CARBON DIOXIDE 23 mmol/L (22-29); CHLORIDE 104 mmol/L (98-107); CREATININE 0.84 mg/dL (0.60-1.30); GLOMERULAR FILTR. RATE CALC > 60 mL/min (>60); GLUCOSE,RANDOM 113 mg/dL (70-110); POTASSIUM 3.6 mmol/L (3.5-5.1); SODIUM SERUM 140 mmol/L (136-145); UREA NITROGEN, BLOOD 7 mg/dL (7-18)
[2022-02-01 23:09] LABS: ALANINE AMINOTRANSFERASE 31 U/L (12-78); ALBUMIN 3.6 g/dL (3.4-5.0); ALKALINE PHOSPHATASE 82 U/L (46-116); ASPARTATE AMINOTRANSFERASE 17 U/L (15-37); BILIRUBIN,TOTAL 0.2 mg/dL (0.1-1.0); TOTAL PROTEIN, SERUM 6.6 g/dL (6.4-8.2)
[2022-02-02] MEDS ORDERED: OLANZapine 5 MG TABLET PO ONE
[2022-02-02] MEDS ORDERED: LORazepam 2 MG TABLET PO PRN (00:15)
[2022-02-02] MEDS ORDERED: HALOPERIDOL 5 MG TABLET PO PRN (00:15)
[2022-02-02 02:29] LABS: COVID AG,FIA SOURCE NASAL SWAB
[2022-02-02 03:22] VITALS: BP 112/72
[2022-02-02] MEDS ORDERED: PNEUMOCOCCAL VACCINE POLYVALENT 0.5 ML VIAL [PPSV23] IM. ONE (04:45)
[2022-02-02] MEDS ORDERED: GuaiFENesin/D-METHORPHAN [SUGAR-FREE] 200-20MG/10 ML SYRUP UDCUP PO PRN (07:45)
[2022-02-02] MEDS ORDERED: ONDANSETRON HCL 4 MG TABLET PO PRN (07:45)
[2022-02-02] MEDS ORDERED: ACETAMINOPHEN 325 MG TABLET PO PRN (07:45)
[2022-02-02] MEDS ORDERED: PETROLATUM,WHITE 28 GM JELLY TP PRN (07:45)
[2022-02-02] MEDS ORDERED: MAG HYDROX/AL HYDROX/SIMETH ES 30 ML SUSPENSION UDCUP PO PRN (07:45)
[2022-02-02] MEDS ORDERED: IBUPROFEN 400 MG TABLET PO PRN (07:45)
[2022-02-02] MEDS ORDERED: LOPERAMIDE HCL 2 MG CAPSULE PO PRN (07:45)
[2022-02-02] MEDS ORDERED: MAGNESIUM HYDROXIDE SUSPENSION 30 ML UDCUP PO PRN (07:45)
[2022-02-02] MEDS ORDERED: DOCUSATE SODIUM 100 MG CAPSULE PO PRN (07:45)
[2022-02-02] MEDS ORDERED: CloNIDine HCL 0.1 MG TABLET PO PRN (07:45)
[2022-02-02 08:16] VITALS: BP 105/60
[2022-02-02] MEDS: NICOTINE 14 MG/24 HOUR PATCH TD PRN (15:59)
[2022-02-02] MEDS: ALBUTEROL SULFATE HFA 90 MCG/PUFF 8 GM INHALER IH PRN (15:59)
[2022-02-02 20:41] VITALS: BP 111/67
[2022-02-03 10:25] VITALS: BP 104/62
[2022-02-03] MEDS: NICOTINE 14 MG/24 HOUR PATCH TD PRN (13:43)
[2022-02-03] MEDS: ALBUTEROL SULFATE HFA 90 MCG/PUFF 8 GM INHALER IH PRN (18:07)
[2022-02-03] MEDS: ZOLPIDEM TARTRATE 10 MG TABLET PO PRN (20:40)
[2022-02-03 21:02] VITALS: BP 101/73
[2022-02-04 08:02] VITALS: BP 120/74
[2022-02-04] MEDS: CHOLECALCIFEROL (VIT D3) 1,000 UNITS [25 MCG] TABLET PO SCH (09:33)
[2022-02-04] MEDS: ALBUTEROL SULFATE HFA 90 MCG/PUFF 8 GM INHALER IH PRN (11:15)
[2022-02-04] MEDS: NICOTINE 14 MG/24 HOUR PATCH TD PRN (12:15)
[2022-02-04 20:23] VITALS: BP 106/62
[2022-02-04] MEDS: ZOLPIDEM TARTRATE 10 MG TABLET PO PRN (21:29)
[2022-02-05] MEDS: CHOLECALCIFEROL (VIT D3) 1,000 UNITS [25 MCG] TABLET PO SCH (08:27)
[2022-02-05 09:04] VITALS: BP 100/61
[2022-02-05] MEDS ORDERED: OLAN7.5T22 PO (12:11)
[2022-02-05] MEDS ORDERED: OLANZapine 7.5 MG TABLET PO SCH (21:00)
== END 2022-02-05 13:15 | disposition home or self-care (01) | DRG 885 ==
LOC: EMS 17:47 → B2S 02-02 00:47
PROVIDERS: ADMIT Psychiatry & Neurology Psychiatry; ATTEND Psychiatry & Neurology Psychiatry
DX: F25.9 Schizoaffective disorder, unspecified (principal); F15.90 Other stimulant use, unspecified, uncomplicated; Z20.822 Contact with and (suspected) exposure to COVID-19; J44.9 Chronic obstructive pulmonary disease, unspecified; K21.9 Gastro-esophageal reflux disease without esophagitis; E55.9 Vitamin D deficiency, unspecified; Z59.00 Homelessness unspecified; Z72.0 Tobacco use; Z71.6 Tobacco abuse counseling
CPT/HCPCS: 80053; 85025; 99285; G0480; J3535

== ENCOUNTER 2022-02-21 21:10 | Emergency (ER) | payer MEDICARE, MEDICAID ==
[~2022-02-21] VITALS: Ht 177.8 cm; Wt 79.4 kg
[~2022-02-21 21:10] MED LIST changes: -ALBU8HFA IH; -HALO10TA20 PO; -OLAN10TA74 PO; +OLAN7.5T22 PO; -TRAZ-257 PO
[2022-02-21 21:13] VITALS: BP 100/65
== END 2022-02-21 22:30 | disposition left against medical advice (07) ==
LOC: EMS 21:14
DX: Z53.21 Procedure and treatment not carried out due to patient leaving prior to being seen by health care provider (principal)

== ENCOUNTER 2022-02-27 12:15 | Emergency (ER) | payer MEDICARE, OTHER ==
[~2022-02-27] VITALS: Ht 180.3 cm; Wt 90.9 kg
[2022-02-27] MEDS ORDERED: OLANZapine 5 MG TABLET PO ONE (13:00)
[2022-02-27 13:26] VITALS: BP 115/82
== END 2022-02-27 13:37 | disposition home or self-care (01) ==
LOC: EMS 12:21
DX: F22 Delusional disorders (principal); F20.9 Schizophrenia, unspecified; F31.9 Bipolar disorder, unspecified; F15.10 Other stimulant abuse, uncomplicated; F10.20 Alcohol dependence, uncomplicated; F17.210 Nicotine dependence, cigarettes, uncomplicated; J45.909 Unspecified asthma, uncomplicated
CPT/HCPCS: 99283

== ENCOUNTER 2022-02-27 13:45 | Emergency (ER) | payer MEDICARE, OTHER ==
[~2022-02-27] VITALS: Ht 180.3 cm; Wt 90.9 kg
[2022-02-27 14:46] VITALS: BP 102/76
[2022-02-27] MEDS ORDERED: LORazepam 1 MG TABLET PO ONE (15:45)
== END 2022-02-27 17:44 | disposition home or self-care (01) ==
LOC: EMS 14:01
DX: F31.9 Bipolar disorder, unspecified (principal); F20.9 Schizophrenia, unspecified; F22 Delusional disorders; F10.20 Alcohol dependence, uncomplicated; F15.10 Other stimulant abuse, uncomplicated; F17.210 Nicotine dependence, cigarettes, uncomplicated; J45.909 Unspecified asthma, uncomplicated
CPT/HCPCS: 99283

== ENCOUNTER 2022-03-01 15:10 | Emergency (ER) | payer MEDICARE, OTHER ==
[~2022-03-01] VITALS: Ht 180.3 cm; Wt 93.1 kg
[2022-03-01] MEDS ORDERED: ALBUTEROL SULFATE HFA 90 MCG/PUFF 8 GM INHALER IH ONE (16:30)
[2022-03-01] MEDS ORDERED: LORazepam 2 MG TABLET PO ONE (16:30)
[2022-03-01 17:15] VITALS: BP 115/75
== END 2022-03-01 17:34 | disposition home or self-care (01) ==
LOC: EMS 15:12
DX: F15.10 Other stimulant abuse, uncomplicated (principal); F20.9 Schizophrenia, unspecified; F31.9 Bipolar disorder, unspecified; F10.20 Alcohol dependence, uncomplicated; F17.210 Nicotine dependence, cigarettes, uncomplicated; J45.909 Unspecified asthma, uncomplicated
CPT/HCPCS: 94640; 99283; J3535

== ENCOUNTER 2022-03-05 04:53 | Emergency (ER) | payer MEDICARE, OTHER ==
[~2022-03-05] VITALS: Ht 180.3 cm; Wt 92.7 kg
[2022-03-05 04:54] VITALS: BP 137/86
[2022-03-05] MEDS ORDERED: LORazepam 2 MG/ML VIAL IM ONE (06:15)
== END 2022-03-05 09:23 | disposition home or self-care (01) ==
LOC: EMS 04:54
DX: F15.10 Other stimulant abuse, uncomplicated (principal); F25.9 Schizoaffective disorder, unspecified; J45.909 Unspecified asthma, uncomplicated; F31.9 Bipolar disorder, unspecified; F19.90 Other psychoactive substance use, unspecified, uncomplicated; F17.210 Nicotine dependence, cigarettes, uncomplicated
CPT/HCPCS: 99284; 96372; J2060

== ENCOUNTER 2022-03-07 15:03 | Emergency (ER) | payer MEDICARE, OTHER ==
[~2022-03-07] VITALS: Ht 180.3 cm; Wt 92.7 kg
[2022-03-07 15:45] VITALS: BP 120/82
[2022-03-07] MEDS ORDERED: OLANZapine 5 MG TABLET PO ONE (15:45)
[2022-03-07] MEDS ORDERED: OLAN10TA74 PO (15:46)
== END 2022-03-07 15:53 | disposition home or self-care (01) ==
LOC: EMS 15:05
DX: F20.9 Schizophrenia, unspecified (principal); Z76.0 Encounter for issue of repeat prescription; F31.9 Bipolar disorder, unspecified; F10.20 Alcohol dependence, uncomplicated; F17.210 Nicotine dependence, cigarettes, uncomplicated; F15.10 Other stimulant abuse, uncomplicated
CPT/HCPCS: 99283

== ENCOUNTER 2022-03-08 19:16 | Emergency (ER) | payer MEDICARE, OTHER ==
[~2022-03-08] VITALS: Ht 180.3 cm; Wt 109.9 kg
[~2022-03-08 19:16] MED LIST changes: +OLAN10TA74 PO
[2022-03-08 21:35] LABS: BASOPHILS % (AUTO) 0.6 % (0.0-2.0); EOSINOPHILS % (AUTO) 1.4 % (1.0-6.0); HEMATOCRIT 48.1 % (41-53); HEMOGLOBIN 15.9 g/dL (13.5-17.5); LYMPHOCYTES # (AUTO) 2.5 K/uL (1.0-4.8); LYMPHOCYTES % (AUTO) 19.5 % (22.0-44.0); MEAN CORPUSCULAR HEMOGLOBIN 30.5 pg (26.0-34.0); MEAN CORPUSCULAR HGB CONC 33.1 G/dL (31.0-37.0); MEAN CORPUSCULAR VOLUME 92 fL (80-100); MONOCYTES # (AUTO) 0.6 K/uL (0.1-1.0); MONOCYTES % (AUTO) 4.4 % (2.0-9.0); NEUTROPHILS # (AUTO) 9.5 K/uL (1.8-7.7); NEUTROPHILS % (AUTO) 74.1 % (40.0-70.0); PLATELET COUNT (AUTO) 348 K/uL (150-450); RED BLOOD CELL COUNT(AUTO) 5.21 MIL/uL (4.50-5.90); RED CELL DISTRIBUTION WIDTH 13.7 % (11.5-14.5)
[2022-03-08 22:16] LABS: ANION GAP 11 mmol/L (8-16); CARBON DIOXIDE 25 mmol/L (22-29); CHLORIDE 104 mmol/L (98-107); CREATININE 0.84 mg/dL (0.60-1.30); GLUCOSE,RANDOM 108 mg/dL (70-110); POTASSIUM 4.1 mmol/L (3.5-5.1); SODIUM SERUM 140 mmol/L (136-145); UREA NITROGEN, BLOOD 6 mg/dL (7-18)
[2022-03-08 22:17] LABS: GLOMERULAR FILTR. RATE CALC > 60 mL/min (>60)
[2022-03-08 22:24] LABS: ALANINE AMINOTRANSFERASE 28 U/L (12-78); ALBUMIN 4.3 g/dL (3.4-5.0); ALKALINE PHOSPHATASE 90 U/L (46-116); ASPARTATE AMINOTRANSFERASE 13 U/L (15-37); BILIRUBIN,TOTAL 0.2 mg/dL (0.1-1.0); TOTAL PROTEIN, SERUM 7.8 g/dL (6.4-8.2)
[2022-03-08 22:51] LABS: COVID AG,FIA SOURCE NASAL SWAB
[2022-03-09 05:26] VITALS: BP 128/63
== END 2022-03-09 05:32 | disposition home or self-care (01) ==
LOC: EMS 19:39
DX: F15.959 Other stimulant use, unspecified with stimulant-induced psychotic disorder, unspecified (principal); F31.9 Bipolar disorder, unspecified; J45.909 Unspecified asthma, uncomplicated; F20.9 Schizophrenia, unspecified; F17.210 Nicotine dependence, cigarettes, uncomplicated; Z98.890 Other specified postprocedural states; Z20.822 Contact with and (suspected) exposure to COVID-19
CPT/HCPCS: 99283; 87426; 80053; 85025; 36415; G0480

== ENCOUNTER 2022-03-11 16:38 | Emergency (ER) | payer MEDICARE, OTHER ==
[~2022-03-11] VITALS: Ht 182.9 cm; Wt 92.7 kg
[2022-03-11] MEDS ORDERED: SODIUM CHLORIDE 0.9% 1,000 ML IV ONE (17:00)
[2022-03-11] MEDS ORDERED: ACETAMINOPHEN 500 MG TABLET PO ONE (17:00)
[2022-03-11] MEDS ORDERED: IPRATROPIUM BROMIDE 0.5 MG/2.5 ML NEB SOLUTION NEB ONE (17:00)
[2022-03-11] MEDS ORDERED: ALBUTEROL SULFATE 2.5 MG/0.5 ML NEB SOLUTION NEB ONE (17:00)
[2022-03-11] MEDS ORDERED: ONDANSETRON HCL 4 MG/2 ML VIAL IVP ONE (17:00)
[2022-03-11 17:07] LABS: BASOPHILS % (AUTO) 0.5 % (0.0-2.0); HEMATOCRIT 48.4 % (41-53); HEMOGLOBIN 16.1 g/dL (13.5-17.5); LYMPHOCYTES # (AUTO) 1.7 K/uL (1.0-4.8); LYMPHOCYTES % (AUTO) 13.5 % (22.0-44.0); MEAN CORPUSCULAR HEMOGLOBIN 30.6 pg (26.0-34.0); MEAN CORPUSCULAR HGB CONC 33.2 G/dL (31.0-37.0); MEAN CORPUSCULAR VOLUME 92 fL (80-100); MONOCYTES % (AUTO) 8.3 % (2.0-9.0); NEUTROPHILS # (AUTO) 9.5 K/uL (1.8-7.7); NEUTROPHILS % (AUTO) 76.7 % (40.0-70.0); PLATELET COUNT (AUTO) 287 K/uL (150-450); RED BLOOD CELL COUNT(AUTO) 5.25 MIL/uL (4.50-5.90); RED CELL DISTRIBUTION WIDTH 13.4 % (11.5-14.5)
[2022-03-11 17:16] LABS: ANION GAP 10 mmol/L (8-16); CALCIUM, TOTAL 9.6 mg/dL (8.8-10.5); CARBON DIOXIDE 25 mmol/L (22-29); CHLORIDE 101 mmol/L (98-107); CREATININE 1.22 mg/dL (0.60-1.30); GLOMERULAR FILTR. RATE CALC > 60 mL/min (>60); GLUCOSE,RANDOM 127 mg/dL (70-110); POTASSIUM 3.8 mmol/L (3.5-5.1); SODIUM SERUM 136 mmol/L (136-145); UREA NITROGEN, BLOOD 6 mg/dL (7-18)
[2022-03-11 17:49] LABS: COVID AG,FIA SOURCE NASOPHARYNGEAL
[2022-03-11 17:57] LABS: INFLUENZA TYPE B NEGATIVE FOR TYPE B (NEGATIVE)
[2022-03-11 18:02] LABS: INFLUENZA TYPE A POSITIVE FOR TYPE A (NEGATIVE)
[2022-03-11 18:19] VITALS: BP 118/65
[2022-03-11] MEDS ORDERED: ALBUTEROL SULFATE HFA 90 MCG/PUFF 8 GM INHALER IH ONE (18:45)
== END 2022-03-11 19:22 | disposition home or self-care (01) ==
LOC: EMS 16:38
DX: J10.1 Influenza due to other identified influenza virus with other respiratory manifestations (principal); J45.901 Unspecified asthma with (acute) exacerbation; F31.9 Bipolar disorder, unspecified; F20.9 Schizophrenia, unspecified; F17.210 Nicotine dependence, cigarettes, uncomplicated; F15.90 Other stimulant use, unspecified, uncomplicated; Z20.822 Contact with and (suspected) exposure to COVID-19
CPT/HCPCS: 99284; 96374; 71045; 96361; 87426; 80048; 85025; 87804; 36415; 94640; J2405; J7030; J3535; J7613

== ENCOUNTER 2022-03-16 14:23 | Emergency (ER) | payer MEDICARE, OTHER ==
[~2022-03-16] VITALS: Ht 182.9 cm; Wt 92.7 kg
[2022-03-16 14:57] VITALS: BP 146/96
[2022-03-16 15:20] LABS: BASOPHILS % (AUTO) 0.3 % (0.0-2.0); EOSINOPHILS % (AUTO) 0.3 % (1.0-6.0); HEMATOCRIT 46.9 % (41-53); HEMOGLOBIN 15.8 g/dL (13.5-17.5); LYMPHOCYTES # (AUTO) 1.1 K/uL (1.0-4.8); LYMPHOCYTES % (AUTO) 15.1 % (22.0-44.0); MEAN CORPUSCULAR HEMOGLOBIN 30.9 pg (26.0-34.0); MEAN CORPUSCULAR HGB CONC 33.6 G/dL (31.0-37.0); MEAN CORPUSCULAR VOLUME 92 fL (80-100); MONOCYTES # (AUTO) 0.7 K/uL (0.1-1.0); MONOCYTES % (AUTO) 10.3 % (2.0-9.0); NEUTROPHILS # (AUTO) 5.3 K/uL (1.8-7.7); PLATELET COUNT (AUTO) 229 K/uL (150-450); RED CELL DISTRIBUTION WIDTH 13.3 % (11.5-14.5)
[2022-03-16 15:28] LABS: ANION GAP 7 mmol/L (8-16); CALCIUM, TOTAL 9.4 mg/dL (8.8-10.5); CARBON DIOXIDE 27 mmol/L (22-29); CHLORIDE 102 mmol/L (98-107); CREATININE 1.01 mg/dL (0.60-1.30); GLOMERULAR FILTR. RATE CALC > 60 mL/min (>60); GLUCOSE,RANDOM 125 mg/dL (70-110); POTASSIUM 4.3 mmol/L (3.5-5.1); SODIUM SERUM 136 mmol/L (136-145); UREA NITROGEN, BLOOD 4 mg/dL (7-18)
[2022-03-16 15:33] LABS: ALANINE AMINOTRANSFERASE 31 U/L (12-78); ALKALINE PHOSPHATASE 94 U/L (46-116); ASPARTATE AMINOTRANSFERASE 17 U/L (15-37); BILIRUBIN,TOTAL 0.3 mg/dL (0.1-1.0); TOTAL PROTEIN, SERUM 7.6 g/dL (6.4-8.2)
[2022-03-16] MEDS: SODIUM CHLORIDE 0.9% 1,000 ML IV ONE (15:48)
[2022-03-16] MEDS: LORazepam 1 MG TABLET PO ONE (16:19)
== END 2022-03-16 17:46 | disposition home or self-care (01) ==
LOC: EMS 14:25
DX: F15.10 Other stimulant abuse, uncomplicated (principal); J45.909 Unspecified asthma, uncomplicated; F31.9 Bipolar disorder, unspecified; F20.9 Schizophrenia, unspecified; F17.210 Nicotine dependence, cigarettes, uncomplicated; Z98.890 Other specified postprocedural states
CPT/HCPCS: 99284; 96360; 80053; 85025; 36415; 93005; G0480; J7030

== ENCOUNTER 2022-03-30 17:38 | Emergency (ER) | payer MEDICARE, MEDICAID ==
[~2022-03-30] VITALS: Ht 182.9 cm; Wt 95.5 kg
[~2022-03-30 17:38] MED LIST changes: -OLAN10TA74 PO
[2022-03-30 17:45] VITALS: BP 99/59
== END 2022-03-30 20:45 | disposition left against medical advice (07) ==
LOC: EMS 17:46
DX: Z53.21 Procedure and treatment not carried out due to patient leaving prior to being seen by health care provider (principal)

== ENCOUNTER 2022-04-08 10:56 | Emergency (ER) | payer MEDICARE, OTHER ==
[~2022-04-08] VITALS: Ht 175.3 cm; Wt 90.9 kg
[2022-04-08 11:32] VITALS: BP 93/77
[2022-04-08] MEDS ORDERED: ALBU8HFA IH (11:36)
[2022-04-08 12:23] LABS: BASOPHILS % (AUTO) 0.4 % (0.0-2.0); HEMATOCRIT 45.8 % (41-53); HEMOGLOBIN 15.3 g/dL (13.5-17.5); LYMPHOCYTES # (AUTO) 2.5 K/uL (1.0-4.8); LYMPHOCYTES % (AUTO) 21.3 % (22.0-44.0); MEAN CORPUSCULAR HEMOGLOBIN 30.3 pg (26.0-34.0); MEAN CORPUSCULAR HGB CONC 33.3 G/dL (31.0-37.0); MEAN CORPUSCULAR VOLUME 91 fL (80-100); MONOCYTES # (AUTO) 0.6 K/uL (0.1-1.0); MONOCYTES % (AUTO) 5.4 % (2.0-9.0); NEUTROPHILS # (AUTO) 8.2 K/uL (1.8-7.7); NEUTROPHILS % (AUTO) 70.9 % (40.0-70.0); PLATELET COUNT (AUTO) 323 K/uL (150-450); RED BLOOD CELL COUNT(AUTO) 5.03 MIL/uL (4.50-5.90); RED CELL DISTRIBUTION WIDTH 13.3 % (11.5-14.5)
[2022-04-08 12:36] LABS: ANION GAP 7 mmol/L (8-16); CALCIUM, TOTAL 9.2 mg/dL (8.8-10.5); CARBON DIOXIDE 27 mmol/L (22-29); CHLORIDE 104 mmol/L (98-107); GLUCOSE,RANDOM 102 mg/dL (70-110); POTASSIUM 4.2 mmol/L (3.5-5.1); SODIUM SERUM 138 mmol/L (136-145); UREA NITROGEN, BLOOD 7 mg/dL (7-18)
[2022-04-08 12:37] LABS: GLOMERULAR FILTR. RATE CALC > 60 mL/min (>60)
[2022-04-08 12:41] LABS: ALANINE AMINOTRANSFERASE 24 U/L (12-78); ALBUMIN 3.6 g/dL (3.4-5.0); ALKALINE PHOSPHATASE 88 U/L (46-116); ASPARTATE AMINOTRANSFERASE 12 U/L (15-37); BILIRUBIN,TOTAL 0.3 mg/dL (0.1-1.0); TOTAL PROTEIN, SERUM 6.9 g/dL (6.4-8.2)
[2022-04-08 13:23] LABS: AMPHET/METH SCREEN,URINE POSITIVE (NEGATIVE); BARBITURATE SCREEN, URINE NEGATIVE (NEGATIVE); BENZODIAZEPINES SCREEN,URINE NEGATIVE (NEGATIVE); CANNABINOID SCREEN,URINE NEGATIVE (NEGATIVE); COCAINE SCREEN,URINE NEGATIVE (NEGATIVE); METHADONE SCREEN, URINE NEGATIVE (NEGATIVE); OPIATE SCREEN,URINE NEGATIVE (NEGATIVE)
[2022-04-08 13:24] LABS: PHENCYCLIDINE SCREEN,URINE NEGATIVE (NEGATIVE)
[2022-04-08] MEDS ORDERED: OLAN10 PO (14:01)
[2022-04-08] MEDS ORDERED: LORazepam 1 MG TABLET PO ONE (14:15)
== END 2022-04-08 14:16 | disposition home or self-care (01) ==
LOC: EMS 11:22
DX: F20.9 Schizophrenia, unspecified (principal); F41.9 Anxiety disorder, unspecified; F15.10 Other stimulant abuse, uncomplicated; J45.909 Unspecified asthma, uncomplicated; F31.9 Bipolar disorder, unspecified; F17.210 Nicotine dependence, cigarettes, uncomplicated; Z98.890 Other specified postprocedural states
CPT/HCPCS: 99284; 80053; 85025; 36415; 80307; G0480

== ENCOUNTER 2022-04-11 12:28 | Emergency (ER) | payer MEDICARE, OTHER ==
[~2022-04-11] VITALS: Ht 175.3 cm; Wt 90.1 kg
[~2022-04-11 12:28] MED LIST changes: +ALBU8HFA IH; +OLAN10 PO; -OLAN7.5T22 PO
[2022-04-11] MEDS ORDERED: LORazepam 2 MG/ML VIAL IM ONE (12:45)
[2022-04-11] MEDS ORDERED: HALOPERIDOL LACTATE 5 MG/ML VIAL IM ONE (12:45)
[2022-04-11 15:15] VITALS: BP 116/83
== END 2022-04-11 15:18 | disposition home or self-care (01) ==
LOC: EMS 12:41
DX: F41.9 Anxiety disorder, unspecified (principal); F20.9 Schizophrenia, unspecified; F31.9 Bipolar disorder, unspecified; F15.10 Other stimulant abuse, uncomplicated; F10.20 Alcohol dependence, uncomplicated; F17.210 Nicotine dependence, cigarettes, uncomplicated; J45.909 Unspecified asthma, uncomplicated
CPT/HCPCS: 99284; 96372; J1630; J2060

== ENCOUNTER 2022-04-14 16:59 | Emergency (ER) | payer MEDICARE, OTHER ==
[~2022-04-14] VITALS: Ht 180.3 cm; Wt 90.9 kg
[2022-04-14] MEDS ORDERED: HALOPERIDOL 5 MG TABLET PO ONE (17:30)
[2022-04-14 18:08] VITALS: BP 108/66
[2022-04-15] MEDS ORDERED: HALO5TAB23 PO (09:49)
[2022-04-15] MEDS ORDERED: BENZ1TAB96 PO (09:49)
== END 2022-04-14 18:12 | disposition home or self-care (01) ==
LOC: EMS 17:03
DX: F41.9 Anxiety disorder, unspecified (principal); F15.10 Other stimulant abuse, uncomplicated; J45.909 Unspecified asthma, uncomplicated; F31.9 Bipolar disorder, unspecified; F20.9 Schizophrenia, unspecified; F17.210 Nicotine dependence, cigarettes, uncomplicated; Z98.890 Other specified postprocedural states
CPT/HCPCS: 99283

== ENCOUNTER 2022-04-15 09:07 | Emergency (ER) | payer MEDICARE, OTHER ==
[~2022-04-15] VITALS: Ht 180.3 cm; Wt 90.9 kg
[2022-04-15] MEDS ORDERED: BENZ1TAB96 PO (09:49)
[2022-04-15] MEDS ORDERED: HALO5TAB23 PO (09:49)
[2022-04-15] MEDS ORDERED: BENZTROPINE MESYLATE 2 MG TABLET PO ONE (10:00)
[2022-04-15] MEDS ORDERED: HALOPERIDOL 5 MG TABLET PO ONE (10:00)
[2022-04-15 10:15] VITALS: BP 133/73
== END 2022-04-15 10:22 | disposition home or self-care (01) ==
LOC: EMS 09:13
DX: F41.9 Anxiety disorder, unspecified (principal); F31.9 Bipolar disorder, unspecified; F15.10 Other stimulant abuse, uncomplicated; F20.9 Schizophrenia, unspecified; F17.210 Nicotine dependence, cigarettes, uncomplicated; Z98.890 Other specified postprocedural states
CPT/HCPCS: 99283

== ENCOUNTER 2022-04-19 08:07 | Emergency (ER) | payer MEDICARE, OTHER ==
[~2022-04-19] VITALS: Ht 180.3 cm; Wt 90.9 kg
[~2022-04-19 08:07] MED LIST changes: +BENZ1TAB96 PO; +HALO5TAB23 PO
[2022-04-19 08:15] VITALS: BP 12/83
[2022-04-19 08:54] LABS: BASOPHILS % (AUTO) 0.7 % (0.0-2.0); EOSINOPHILS % (AUTO) 2.4 % (1.0-6.0); HEMATOCRIT 43.8 % (41-53); HEMOGLOBIN 14.5 g/dL (13.5-17.5); LYMPHOCYTES # (AUTO) 2.3 K/uL (1.0-4.8); MEAN CORPUSCULAR HEMOGLOBIN 30.1 pg (26.0-34.0); MEAN CORPUSCULAR VOLUME 91 fL (80-100); MONOCYTES # (AUTO) 0.9 K/uL (0.1-1.0); MONOCYTES % (AUTO) 6.7 % (2.0-9.0); NEUTROPHILS # (AUTO) 10.1 K/uL (1.8-7.7); NEUTROPHILS % (AUTO) 73.2 % (40.0-70.0); PLATELET COUNT (AUTO) 312 K/uL (150-450); RED CELL DISTRIBUTION WIDTH 13.4 % (11.5-14.5)
[2022-04-19 09:05] LABS: ANION GAP 7 mmol/L (8-16); CARBON DIOXIDE 27 mmol/L (22-29); CHLORIDE 105 mmol/L (98-107); CREATININE 0.96 mg/dL (0.60-1.30); GLUCOSE,RANDOM 121 mg/dL (70-110); POTASSIUM 4.3 mmol/L (3.5-5.1); SODIUM SERUM 139 mmol/L (136-145); UREA NITROGEN, BLOOD 9 mg/dL (7-18)
[2022-04-19 09:08] LABS: GLOMERULAR FILTR. RATE CALC > 60 mL/min (>60)
[2022-04-19 09:11] LABS: ALANINE AMINOTRANSFERASE 30 U/L (12-78); ALBUMIN 3.6 g/dL (3.4-5.0); ALKALINE PHOSPHATASE 85 U/L (46-116); ASPARTATE AMINOTRANSFERASE 15 U/L (15-37); BILIRUBIN,TOTAL 0.3 mg/dL (0.1-1.0)
[2022-04-19] MEDS ORDERED: HALOPERIDOL 5 MG TABLET PO ONE (10:00)
[2022-04-19] MEDS ORDERED: LORazepam 1 MG TABLET PO ONE (10:00)
[2022-04-19] MEDS ORDERED: DiphenhydrAMINE HCL 25 MG CAPSULE PO ONE (10:00)
[2022-04-19 10:07] LABS: AMPHET/METH SCREEN,URINE POSITIVE (NEGATIVE); BARBITURATE SCREEN, URINE NEGATIVE (NEGATIVE); BENZODIAZEPINES SCREEN,URINE NEGATIVE (NEGATIVE); CANNABINOID SCREEN,URINE NEGATIVE (NEGATIVE); COCAINE SCREEN,URINE NEGATIVE (NEGATIVE); METHADONE SCREEN, URINE NEGATIVE (NEGATIVE); OPIATE SCREEN,URINE NEGATIVE (NEGATIVE)
[2022-04-19 10:08] LABS: PHENCYCLIDINE SCREEN,URINE NEGATIVE (NEGATIVE)
== END 2022-04-19 11:08 | disposition home or self-care (01) ==
LOC: EMS 08:25
DX: F15.10 Other stimulant abuse, uncomplicated (principal); F20.0 Paranoid schizophrenia; F41.9 Anxiety disorder, unspecified; F32.9 Major depressive disorder, single episode, unspecified; F10.20 Alcohol dependence, uncomplicated; F17.210 Nicotine dependence, cigarettes, uncomplicated
CPT/HCPCS: 99284; 80053; 85025; 36415; 80307; G0480

== ENCOUNTER 2022-04-21 15:26 | Emergency (ER) | payer MEDICARE, OTHER ==
[~2022-04-21] VITALS: Ht 180.3 cm; Wt 90.9 kg
[2022-04-21 15:36] VITALS: BP 113/64
== END 2022-04-21 17:23 | disposition left against medical advice (07) ==
LOC: EMS 15:28
DX: F20.9 Schizophrenia, unspecified (principal); F32.9 Major depressive disorder, single episode, unspecified; F41.9 Anxiety disorder, unspecified; F15.90 Other stimulant use, unspecified, uncomplicated; F17.210 Nicotine dependence, cigarettes, uncomplicated; Z79.899 Other long term (current) drug therapy
CPT/HCPCS: 99281; Z7502

== ENCOUNTER 2022-04-22 14:31 | Emergency (ER) | payer MEDICARE, OTHER ==
[~2022-04-22] VITALS: Ht 180.3 cm; Wt 90.9 kg
[2022-04-22 15:10] VITALS: BP 107/70
[2022-04-22] MEDS ORDERED: HALOPERIDOL 5 MG TABLET PO ONE (15:45)
== END 2022-04-22 16:40 | disposition home or self-care (01) ==
LOC: EMS 14:35
DX: F20.9 Schizophrenia, unspecified (principal); F32.9 Major depressive disorder, single episode, unspecified; F41.9 Anxiety disorder, unspecified; Z79.899 Other long term (current) drug therapy; F15.90 Other stimulant use, unspecified, uncomplicated; F17.210 Nicotine dependence, cigarettes, uncomplicated
CPT/HCPCS: 99284; Z7502; Z7610

== ENCOUNTER 2022-04-23 09:59 | Emergency (ER) | payer MEDICARE, OTHER ==
[~2022-04-23] VITALS: Ht 180.3 cm; Wt 90.9 kg
[2022-04-23 10:01] VITALS: BP 122/79
== END 2022-04-23 10:43 | disposition left against medical advice (07) ==
LOC: EMS 10:26
DX: F15.90 Other stimulant use, unspecified, uncomplicated (principal); Z53.21 Procedure and treatment not carried out due to patient leaving prior to being seen by health care provider

== ENCOUNTER 2022-04-24 15:43 | Emergency (ER) | payer MEDICARE, OTHER ==
[~2022-04-24] VITALS: Ht 180.3 cm; Wt 92.7 kg
[2022-04-24 16:01] VITALS: BP 122/79
== END 2022-04-24 18:08 | disposition left against medical advice (07) ==
LOC: EMS 15:55
DX: F10.129 Alcohol abuse with intoxication, unspecified (principal); Z53.21 Procedure and treatment not carried out due to patient leaving prior to being seen by health care provider

== ENCOUNTER 2022-04-28 21:32 | Emergency (ER) | payer MEDICARE, OTHER ==
[~2022-04-28] VITALS: Ht 180.3 cm; Wt 90.9 kg
[2022-04-28 21:39] VITALS: BP 123/73
== END 2022-04-29 01:11 | disposition left against medical advice (07) ==
LOC: EMS 21:34
DX: F22 Delusional disorders (principal); Z53.21 Procedure and treatment not carried out due to patient leaving prior to being seen by health care provider

== ENCOUNTER 2022-04-29 11:21 | Emergency (ER) | payer MEDICARE, OTHER ==
[~2022-04-29] VITALS: Ht 180.3 cm; Wt 90.9 kg
[2022-04-29 11:50] VITALS: BP 120/74
[2022-04-29] MEDS ORDERED: LORazepam 1 MG TABLET PO ONE (12:30)
[2022-04-29] MEDS ORDERED: BENZTROPINE MESYLATE 1 MG TABLET PO ONE (12:30)
== END 2022-04-29 14:00 | disposition home or self-care (01) ==
LOC: EMS 11:29
DX: F41.9 Anxiety disorder, unspecified (principal); F15.10 Other stimulant abuse, uncomplicated; F32.A Depression, unspecified; F20.9 Schizophrenia, unspecified; F17.210 Nicotine dependence, cigarettes, uncomplicated; Z98.890 Other specified postprocedural states
CPT/HCPCS: 99283

== ENCOUNTER 2022-05-02 12:17 | Emergency (ER) | payer MEDICARE, OTHER ==
[~2022-05-02] VITALS: Ht 180.3 cm; Wt 91.0 kg
[2022-05-02 12:30] VITALS: BP 105/66
[2022-05-02] MEDS ORDERED: HydrOXYzine HCL 50 MG TABLET PO ONE (12:45)
== END 2022-05-02 14:14 | disposition home or self-care (01) ==
LOC: EMS 12:21
DX: F41.9 Anxiety disorder, unspecified (principal); F15.90 Other stimulant use, unspecified, uncomplicated; F32.A Depression, unspecified; F20.9 Schizophrenia, unspecified; F17.210 Nicotine dependence, cigarettes, uncomplicated; Z98.890 Other specified postprocedural states
CPT/HCPCS: 99283

== ENCOUNTER 2022-05-04 09:40 | Emergency (ER) | payer MEDICARE, OTHER ==
[~2022-05-04] VITALS: Ht 180.3 cm; Wt 91.0 kg
[2022-05-04 09:45] VITALS: BP 142/89
[2022-05-04] MEDS ORDERED: ALBU8HFA IH (09:57)
[2022-05-04] MEDS ORDERED: HALO5TAB23 PO (09:57)
[2022-05-04] MEDS ORDERED: OLAN10 PO (09:57)
[2022-05-04] MEDS ORDERED: BENZ1TAB96 PO (09:57)
[2022-05-04] MEDS ORDERED: ALBUTEROL SULFATE HFA 90 MCG/PUFF 8 GM INHALER IH ONE (10:00)
== END 2022-05-04 10:15 | disposition home or self-care (01) ==
LOC: EMS 09:42
DX: J45.901 Unspecified asthma with (acute) exacerbation (principal); F25.0 Schizoaffective disorder, bipolar type; F41.9 Anxiety disorder, unspecified; F10.20 Alcohol dependence, uncomplicated; F15.10 Other stimulant abuse, uncomplicated; F17.210 Nicotine dependence, cigarettes, uncomplicated; F19.10 Other psychoactive substance abuse, uncomplicated
CPT/HCPCS: 94640; 99283; J3535

== ENCOUNTER 2022-05-04 11:43 | Emergency (ER) | payer MEDICARE, OTHER ==
[~2022-05-04] VITALS: Ht 180.3 cm; Wt 91.0 kg
[2022-05-04 11:44] VITALS: BP 144/88
== END 2022-05-04 13:32 | disposition home or self-care (01) ==
LOC: EMS 12:34
DX: F25.9 Schizoaffective disorder, unspecified (principal); F31.9 Bipolar disorder, unspecified; F41.9 Anxiety disorder, unspecified; F15.10 Other stimulant abuse, uncomplicated; F17.210 Nicotine dependence, cigarettes, uncomplicated
CPT/HCPCS: 99284; Z7502

== ENCOUNTER 2022-05-04 15:56 | Emergency (ER) | payer MEDICARE, OTHER ==
[~2022-05-04] VITALS: Ht 180.3 cm; Wt 91.0 kg
[2022-05-04 18:05] VITALS: BP 134/78
== END 2022-05-04 19:36 | disposition home or self-care (01) ==
LOC: EMS 16:06
DX: F41.9 Anxiety disorder, unspecified (principal); F32.A Depression, unspecified; F20.9 Schizophrenia, unspecified; F17.210 Nicotine dependence, cigarettes, uncomplicated; F15.90 Other stimulant use, unspecified, uncomplicated; Z98.890 Other specified postprocedural states
CPT/HCPCS: 99281; Z7502

== ENCOUNTER 2022-05-04 23:05 | Emergency (ER) | payer MEDICARE, OTHER ==
[~2022-05-04] VITALS: Ht 185.4 cm; Wt 88.6 kg
[2022-05-04 23:06] VITALS: BP 155/67
[2022-05-04] MEDS ORDERED: LORazepam 1 MG TABLET PO ONE (23:45)
== END 2022-05-05 01:28 | disposition home or self-care (01) ==
LOC: EMS 23:35
DX: F41.9 Anxiety disorder, unspecified (principal); F32.A Depression, unspecified; F20.9 Schizophrenia, unspecified; F17.210 Nicotine dependence, cigarettes, uncomplicated; F12.90 Cannabis use, unspecified, uncomplicated; F15.90 Other stimulant use, unspecified, uncomplicated; Z98.890 Other specified postprocedural states
CPT/HCPCS: 99281; Z7502

== ENCOUNTER 2022-05-07 17:47 | Emergency (ER) | payer MEDICARE, OTHER ==
[~2022-05-07] VITALS: Ht 180.3 cm; Wt 90.9 kg
[2022-05-07 17:56] VITALS: BP 135/82
== END 2022-05-07 19:15 | disposition left against medical advice (07) ==
LOC: EMS 18:03
DX: F48.9 Nonpsychotic mental disorder, unspecified (principal); Z53.21 Procedure and treatment not carried out due to patient leaving prior to being seen by health care provider

== ENCOUNTER 2022-05-10 10:54 | Emergency (ER) | payer MEDICARE, OTHER ==
[~2022-05-10] VITALS: Ht 180.3 cm; Wt 90.9 kg
[2022-05-10 11:24] VITALS: BP 118/76
[2022-05-10] MEDS ORDERED: HydrOXYzine HCL 50 MG TABLET PO ONE (11:45)
== END 2022-05-10 13:08 | disposition home or self-care (01) ==
LOC: EMS 11:01
DX: F41.9 Anxiety disorder, unspecified (principal); F15.10 Other stimulant abuse, uncomplicated; F32.A Depression, unspecified; F20.9 Schizophrenia, unspecified; F17.210 Nicotine dependence, cigarettes, uncomplicated; F12.90 Cannabis use, unspecified, uncomplicated
CPT/HCPCS: 99284; Z7502; Z7610

== ENCOUNTER 2022-05-11 15:03 | Emergency (ER) | payer MEDICARE, OTHER ==
[~2022-05-11] VITALS: Ht 180.3 cm; Wt 90.9 kg
[2022-05-11 15:06] VITALS: BP 123/76
== END 2022-05-11 15:32 | disposition left against medical advice (07) ==
LOC: EMS 15:09
DX: Z53.21 Procedure and treatment not carried out due to patient leaving prior to being seen by health care provider (principal)

== ENCOUNTER 2022-05-12 17:09 | Emergency (ER) | payer MEDICARE, OTHER ==
[~2022-05-12] VITALS: Ht 180.3 cm; Wt 90.9 kg
[2022-05-12 17:16] VITALS: BP 102/64
== END 2022-05-12 18:02 | disposition home or self-care (01) ==
LOC: EMS 17:09
DX: F41.9 Anxiety disorder, unspecified (principal); F15.10 Other stimulant abuse, uncomplicated; F25.9 Schizoaffective disorder, unspecified; F31.9 Bipolar disorder, unspecified; F25.0 Schizoaffective disorder, bipolar type; F17.210 Nicotine dependence, cigarettes, uncomplicated; F10.90 Alcohol use, unspecified, uncomplicated; F12.90 Cannabis use, unspecified, uncomplicated; Z98.890 Other specified postprocedural states
CPT/HCPCS: 99281; Z7502

== ENCOUNTER 2022-05-17 15:07 | Emergency (ER) | payer MEDICARE, OTHER ==
[~2022-05-17] VITALS: Ht 180.3 cm; Wt 90.9 kg
[2022-05-17 15:24] VITALS: BP 109/68
== END 2022-05-17 17:32 | disposition left against medical advice (07) ==
LOC: EMS 15:07
DX: F48.9 Nonpsychotic mental disorder, unspecified (principal); Z53.21 Procedure and treatment not carried out due to patient leaving prior to being seen by health care provider

== ENCOUNTER 2022-05-19 08:39 | Emergency (ER) | payer MEDICARE, OTHER ==
[~2022-05-19] VITALS: Ht 177.8 cm; Wt 91.0 kg
[2022-05-19] MEDS ORDERED: LORazepam 1 MG TABLET PO ONE (09:00)
[2022-05-19 11:26] VITALS: BP 113/72
== END 2022-05-19 11:35 | disposition home or self-care (01) ==
LOC: EMS 08:46
DX: F15.951 Other stimulant use, unspecified with stimulant-induced psychotic disorder with hallucinations (principal); F41.9 Anxiety disorder, unspecified; F32.A Depression, unspecified; F20.9 Schizophrenia, unspecified; F17.210 Nicotine dependence, cigarettes, uncomplicated; F12.90 Cannabis use, unspecified, uncomplicated; F15.90 Other stimulant use, unspecified, uncomplicated; Z98.890 Other specified postprocedural states
CPT/HCPCS: 99283

== ENCOUNTER 2022-05-20 15:43 | Emergency (ER) | payer MEDICARE, OTHER ==
[~2022-05-20] VITALS: Ht 180.3 cm; Wt 90.9 kg
[2022-05-20 16:00] VITALS: BP 110/70
== END 2022-05-20 18:48 | disposition left against medical advice (07) ==
LOC: EMS 15:57
DX: R48.9 Unspecified symbolic dysfunctions (principal); Z76.0 Encounter for issue of repeat prescription; Z53.21 Procedure and treatment not carried out due to patient leaving prior to being seen by health care provider

== ENCOUNTER 2022-05-22 08:43 | Emergency (ER) | payer MEDICARE, OTHER ==
[~2022-05-22] VITALS: Ht 180.3 cm; Wt 90.9 kg
[2022-05-22 08:45] VITALS: BP 116/72
== END 2022-05-22 10:31 | disposition home or self-care (01) ==
LOC: EMS 08:48
DX: F25.9 Schizoaffective disorder, unspecified (principal); F41.9 Anxiety disorder, unspecified; F32.A Depression, unspecified; F17.210 Nicotine dependence, cigarettes, uncomplicated; F15.90 Other stimulant use, unspecified, uncomplicated; F12.90 Cannabis use, unspecified, uncomplicated; F10.90 Alcohol use, unspecified, uncomplicated; Z98.890 Other specified postprocedural states; Z76.0 Encounter for issue of repeat prescription
CPT/HCPCS: 99281; Z7502

== ENCOUNTER 2022-05-22 12:52 | Emergency (ER) | payer MEDICARE, OTHER ==
[~2022-05-22] VITALS: Ht 180.3 cm; Wt 90.9 kg
[2022-05-22 12:54] VITALS: BP 139/95
== END 2022-05-22 15:01 | disposition left against medical advice (07) ==
LOC: EMS 12:56
DX: F48.9 Nonpsychotic mental disorder, unspecified (principal); Z53.21 Procedure and treatment not carried out due to patient leaving prior to being seen by health care provider

== ENCOUNTER 2022-05-26 19:18 | Emergency (ER) | payer MEDICARE, OTHER ==
[~2022-05-26] VITALS: Ht 180.3 cm; Wt 90.9 kg
[2022-05-26 19:28] VITALS: BP 115/87
[2022-05-26] MEDS ORDERED: LORazepam 1 MG TABLET PO ONE (19:45)
== END 2022-05-26 20:42 | disposition home or self-care (01) ==
LOC: EMS 19:23
DX: F41.9 Anxiety disorder, unspecified (principal); F15.90 Other stimulant use, unspecified, uncomplicated; F32.A Depression, unspecified; F20.9 Schizophrenia, unspecified; F17.210 Nicotine dependence, cigarettes, uncomplicated; F12.90 Cannabis use, unspecified, uncomplicated
CPT/HCPCS: 99283

== ENCOUNTER 2022-06-04 11:35 | Emergency (ER) | payer MEDICARE, OTHER ==
[~2022-06-04] VITALS: Ht 180.3 cm; Wt 90.9 kg
[2022-06-04 11:36] VITALS: BP 107/71
[2022-06-04] MEDS ORDERED: OLAN10TA74 PO (12:28)
[2022-06-04] MEDS ORDERED: ALBUTEROL SULFATE HFA 90 MCG/PUFF 8 GM INHALER IH ONE (12:30)
== END 2022-06-04 12:55 | disposition home or self-care (01) ==
LOC: EMS 11:41
DX: F20.9 Schizophrenia, unspecified (principal); J45.909 Unspecified asthma, uncomplicated; F19.10 Other psychoactive substance abuse, uncomplicated; F41.9 Anxiety disorder, unspecified; F32.A Depression, unspecified; F12.90 Cannabis use, unspecified, uncomplicated; F10.10 Alcohol abuse, uncomplicated; F15.90 Other stimulant use, unspecified, uncomplicated; F17.210 Nicotine dependence, cigarettes, uncomplicated; Z76.0 Encounter for issue of repeat prescription
CPT/HCPCS: 94640; 99283; J3535

== ENCOUNTER 2022-06-05 00:29 | Emergency (ER) | payer MEDICARE, OTHER ==
[~2022-06-05] VITALS: Ht 180.3 cm; Wt 91.0 kg
[~2022-06-05 00:29] MED LIST changes: +OLAN10TA74 PO
[2022-06-05 01:43] VITALS: BP 138/87
[2022-06-05] MEDS ORDERED: LORazepam 1 MG TABLET PO ONE (01:45)
== END 2022-06-05 02:14 | disposition home or self-care (01) ==
LOC: EMS 00:30
DX: F15.10 Other stimulant abuse, uncomplicated (principal); F41.9 Anxiety disorder, unspecified; F32.A Depression, unspecified; F20.9 Schizophrenia, unspecified; F17.210 Nicotine dependence, cigarettes, uncomplicated; F12.90 Cannabis use, unspecified, uncomplicated; Z98.890 Other specified postprocedural states
CPT/HCPCS: 99283

== ENCOUNTER 2022-06-06 18:46 | Emergency (ER) | payer MEDICARE, OTHER ==
[~2022-06-06] VITALS: Ht 177.8 cm; Wt 86.4 kg
[2022-06-06 18:50] VITALS: BP 142/88
[2022-06-06] MEDS ORDERED: LORazepam 1 MG TABLET PO ONE (19:00)
== END 2022-06-06 19:22 | disposition home or self-care (01) ==
LOC: EMS 18:53
DX: F15.10 Other stimulant abuse, uncomplicated (principal); F41.9 Anxiety disorder, unspecified; F32.A Depression, unspecified; F20.9 Schizophrenia, unspecified; F17.210 Nicotine dependence, cigarettes, uncomplicated; F12.90 Cannabis use, unspecified, uncomplicated; Z98.890 Other specified postprocedural states
CPT/HCPCS: 99283

== ENCOUNTER 2022-06-08 17:26 | Emergency (ER) | payer MEDICARE, OTHER ==
[~2022-06-08] VITALS: Ht 180.3 cm; Wt 91.4 kg
[2022-06-08 19:34] LABS: BASOPHILS % (AUTO) 0.4 % (0.0-2.0); EOSINOPHILS % (AUTO) 2.8 % (1.0-6.0); HEMATOCRIT 45.1 % (41-53); HEMOGLOBIN 14.8 g/dL (13.5-17.5); LYMPHOCYTES # (AUTO) 3.4 K/uL (1.0-4.8); LYMPHOCYTES % (AUTO) 28.4 % (22.0-44.0); MEAN CORPUSCULAR HEMOGLOBIN 29.9 pg (26.0-34.0); MEAN CORPUSCULAR HGB CONC 32.8 G/dL (31.0-37.0); MEAN CORPUSCULAR VOLUME 91 fL (80-100); MONOCYTES # (AUTO) 0.8 K/uL (0.1-1.0); MONOCYTES % (AUTO) 6.5 % (2.0-9.0); NEUTROPHILS # (AUTO) 7.5 K/uL (1.8-7.7); NEUTROPHILS % (AUTO) 61.9 % (40.0-70.0); PLATELET COUNT (AUTO) 349 K/uL (150-450); RED BLOOD CELL COUNT(AUTO) 4.95 MIL/uL (4.50-5.90); RED CELL DISTRIBUTION WIDTH 13.7 % (11.5-14.5)
[2022-06-08 19:41] LABS: ANION GAP 8 mmol/L (8-16); CALCIUM, TOTAL 9.1 mg/dL (8.8-10.5); CARBON DIOXIDE 29 mmol/L (22-29); CHLORIDE 104 mmol/L (98-107); CREATININE 0.92 mg/dL (0.60-1.30); GLUCOSE,RANDOM 107 mg/dL (70-110); POTASSIUM 4.3 mmol/L (3.5-5.1); SODIUM SERUM 141 mmol/L (136-145); UREA NITROGEN, BLOOD 11 mg/dL (7-18)
[2022-06-08 19:42] LABS: GLOMERULAR FILTR. RATE CALC > 60 mL/min (>60)
[2022-06-08 19:45] VITALS: BP 101/54
[2022-06-08 19:50] LABS: ALANINE AMINOTRANSFERASE 32 U/L (12-78); ALBUMIN 3.7 g/dL (3.4-5.0); ALKALINE PHOSPHATASE 103 U/L (46-116); ASPARTATE AMINOTRANSFERASE 15 U/L (15-37); BILIRUBIN,TOTAL 0.2 mg/dL (0.1-1.0); CREATINE KINASE, TOTAL ONLY 69 U/L (39-308); TOTAL PROTEIN, SERUM 6.9 g/dL (6.4-8.2)
[2022-06-08 19:54] LABS: B-TYPE NATRIURETIC PEPTIDE < 5 pg/mL (0-100)
[2022-06-09] MEDS ORDERED: BENZ2TAB76 PO (10:43)
[2022-06-09] MEDS ORDERED: ALBU8HFA IH (11:40)
== END 2022-06-08 20:19 | disposition home or self-care (01) ==
LOC: EMS 17:30
DX: R42 Dizziness and giddiness (principal); F41.9 Anxiety disorder, unspecified; F32.A Depression, unspecified; F20.9 Schizophrenia, unspecified; F17.210 Nicotine dependence, cigarettes, uncomplicated; F12.90 Cannabis use, unspecified, uncomplicated; F15.90 Other stimulant use, unspecified, uncomplicated; Z98.890 Other specified postprocedural states
CPT/HCPCS: 80053; 82550; 83880; 84484; 85025; 93005; 99284

== ENCOUNTER 2022-06-09 10:32 | Emergency (ER) | payer MEDICARE, OTHER ==
[~2022-06-09] VITALS: Ht 177.8 cm; Wt 81.8 kg
[2022-06-09] MEDS ORDERED: BENZ2TAB76 PO (10:43)
[2022-06-09 11:04] VITALS: BP 108/76
[2022-06-09] MEDS ORDERED: ALBU8HFA IH (11:40)
== END 2022-06-09 11:46 | disposition home or self-care (01) ==
LOC: EMS 10:36
DX: Z76.0 Encounter for issue of repeat prescription (principal); F41.9 Anxiety disorder, unspecified; J45.909 Unspecified asthma, uncomplicated; F32.A Depression, unspecified; F20.9 Schizophrenia, unspecified; F17.210 Nicotine dependence, cigarettes, uncomplicated; F12.90 Cannabis use, unspecified, uncomplicated; F15.90 Other stimulant use, unspecified, uncomplicated; Z98.890 Other specified postprocedural states
CPT/HCPCS: 99281; Z7502

== ENCOUNTER 2022-06-09 16:25 | Emergency (ER) | payer MEDICARE, OTHER ==
[~2022-06-09 16:25] MED LIST changes: +BENZ2TAB76 PO
== END 2022-06-09 17:00 | disposition left against medical advice (07) ==
LOC: EMS 16:33
DX: Z53.21 Procedure and treatment not carried out due to patient leaving prior to being seen by health care provider (principal)

== ENCOUNTER 2022-06-12 10:25 | Emergency (ER) | payer MEDICARE, OTHER ==
[~2022-06-12] VITALS: Ht 180.3 cm; Wt 90.9 kg
[~2022-06-12 10:25] MED LIST changes: -BENZ1TAB96 PO; -OLAN10 PO
[2022-06-12 11:30] VITALS: BP 125/86
[2022-06-12] MEDS ORDERED: LORazepam 1 MG TABLET PO ONE (13:15)
[2022-06-12] MEDS ORDERED: DiphenhydrAMINE HCL 25 MG CAPSULE PO ONE (13:15)
[2022-06-12] MEDS ORDERED: HALOPERIDOL 5 MG TABLET PO ONE (13:15)
== END 2022-06-12 13:32 | disposition home or self-care (01) ==
LOC: EMS 11:25
DX: F41.9 Anxiety disorder, unspecified (principal); F32.A Depression, unspecified; J45.909 Unspecified asthma, uncomplicated; F20.9 Schizophrenia, unspecified; F17.210 Nicotine dependence, cigarettes, uncomplicated; F12.90 Cannabis use, unspecified, uncomplicated; F15.90 Other stimulant use, unspecified, uncomplicated; F10.90 Alcohol use, unspecified, uncomplicated
CPT/HCPCS: 99284; Z7502; Z7610

== ENCOUNTER 2022-06-13 17:54 | Emergency (ER) | payer MEDICARE, OTHER ==
[~2022-06-13] VITALS: Ht 180.3 cm; Wt 91.4 kg
[2022-06-13] MEDS ORDERED: HALOPERIDOL 5 MG TABLET PO ONE (19:15)
[2022-06-13] MEDS ORDERED: BENZTROPINE MESYLATE 1 MG TABLET PO ONE (19:15)
[2022-06-13 21:23] VITALS: BP 136/83
== END 2022-06-13 22:50 | disposition home or self-care (01) ==
LOC: EMS 19:16
DX: F20.0 Paranoid schizophrenia (principal); F15.10 Other stimulant abuse, uncomplicated; F41.9 Anxiety disorder, unspecified; J45.909 Unspecified asthma, uncomplicated; F32.A Depression, unspecified; F12.90 Cannabis use, unspecified, uncomplicated; F17.210 Nicotine dependence, cigarettes, uncomplicated; Z98.890 Other specified postprocedural states
CPT/HCPCS: 99284; Z7502; Z7610

== ENCOUNTER 2022-06-15 09:39 | Emergency (ER) | payer MEDICARE, OTHER | END 2022-06-15 10:36 | disposition left against medical advice (07) | LOC: EMS 09:42 | DX: Z53.21 Procedure and treatment not carried out due to patient leaving prior to being seen by health care provider (principal) ==

== ENCOUNTER 2022-06-17 10:14 | Emergency (ER) | payer MEDICARE, OTHER ==
[~2022-06-17] VITALS: Ht 177.8 cm; Wt 72.7 kg
[2022-06-17] MEDS ORDERED: LORazepam 1 MG TABLET PO ONE (11:15)
[2022-06-17 12:20] VITALS: BP 111/88
== END 2022-06-17 12:22 | disposition home or self-care (01) ==
LOC: EMS 10:17
DX: F15.10 Other stimulant abuse, uncomplicated (principal); F41.9 Anxiety disorder, unspecified; J45.909 Unspecified asthma, uncomplicated; F32.A Depression, unspecified; F20.9 Schizophrenia, unspecified; F17.210 Nicotine dependence, cigarettes, uncomplicated; F12.90 Cannabis use, unspecified, uncomplicated; F10.90 Alcohol use, unspecified, uncomplicated; Z98.890 Other specified postprocedural states
CPT/HCPCS: 99283

== ENCOUNTER 2022-06-17 14:32 | Emergency (ER) | payer MEDICARE, OTHER ==
[~2022-06-17] VITALS: Ht 177.8 cm; Wt 72.7 kg
[2022-06-17 14:38] VITALS: BP 118/64
== END 2022-06-17 16:15 | disposition left against medical advice (07) ==
LOC: EMS 14:34
DX: Z53.21 Procedure and treatment not carried out due to patient leaving prior to being seen by health care provider (principal)

== ENCOUNTER 2022-06-18 08:26 | Emergency (ER) | payer MEDICARE, OTHER ==
[~2022-06-18] VITALS: Ht 182.9 cm; Wt 90.9 kg
[2022-06-18 08:32] VITALS: BP 147/72
[2022-06-18] MEDS ORDERED: LORazepam 1 MG TABLET PO ONE (08:45)
== END 2022-06-18 10:32 | disposition home or self-care (01) ==
LOC: EMS 08:30
DX: F24 Shared psychotic disorder (principal); F41.9 Anxiety disorder, unspecified; J45.909 Unspecified asthma, uncomplicated; F32.A Depression, unspecified; F20.9 Schizophrenia, unspecified; F17.210 Nicotine dependence, cigarettes, uncomplicated; F12.90 Cannabis use, unspecified, uncomplicated; F15.90 Other stimulant use, unspecified, uncomplicated; Z98.890 Other specified postprocedural states
CPT/HCPCS: 99283

== ENCOUNTER 2022-06-20 12:54 | Emergency (ER) | payer MEDICARE, OTHER ==
[~2022-06-20] VITALS: Ht 182.9 cm; Wt 90.9 kg
[2022-06-20 13:17] VITALS: BP 103/76
[2022-06-21] MEDS ORDERED: HALO5TAB23 PO (17:33)
== END 2022-06-20 14:15 | disposition home or self-care (01) ==
LOC: EMS 13:13
DX: F15.10 Other stimulant abuse, uncomplicated (principal); F41.9 Anxiety disorder, unspecified; J45.909 Unspecified asthma, uncomplicated; F32.A Depression, unspecified; F20.9 Schizophrenia, unspecified; F17.210 Nicotine dependence, cigarettes, uncomplicated; F12.90 Cannabis use, unspecified, uncomplicated
CPT/HCPCS: 99281; Z7502

== ENCOUNTER 2022-06-21 17:15 | Emergency (ER) | payer MEDICARE, OTHER ==
[~2022-06-21] VITALS: Ht 182.9 cm; Wt 90.9 kg
[~2022-06-21 17:15] MED LIST changes: -ALBU8HFA IH; -BENZ2TAB76 PO
[2022-06-21 17:22] VITALS: BP 116/49
[2022-06-21] MEDS ORDERED: HALOPERIDOL 5 MG TABLET PO ONE (17:30)
[2022-06-21] MEDS ORDERED: HALO5TAB23 PO (17:33)
== END 2022-06-21 18:03 | disposition home or self-care (01) ==
LOC: EMS 17:20
DX: F20.9 Schizophrenia, unspecified (principal); Z76.0 Encounter for issue of repeat prescription; F41.9 Anxiety disorder, unspecified; J45.909 Unspecified asthma, uncomplicated; F32.A Depression, unspecified; F17.210 Nicotine dependence, cigarettes, uncomplicated; F12.90 Cannabis use, unspecified, uncomplicated; F15.90 Other stimulant use, unspecified, uncomplicated
CPT/HCPCS: 99283

== ENCOUNTER 2022-06-23 21:40 | Emergency (ER) | payer MEDICARE, OTHER ==
[~2022-06-23] VITALS: Ht 180.3 cm; Wt 90.9 kg
[2022-06-23 21:45] VITALS: BP 108/74
[2022-06-23 22:16] LABS: BASOPHILS % (AUTO) 0.6 % (0.0-2.0); EOSINOPHILS % (AUTO) 2.9 % (1.0-6.0); HEMATOCRIT 43.3 % (41-53); HEMOGLOBIN 14.5 g/dL (13.5-17.5); LYMPHOCYTES # (AUTO) 3.5 K/uL (1.0-4.8); MEAN CORPUSCULAR HEMOGLOBIN 30.3 pg (26.0-34.0); MEAN CORPUSCULAR HGB CONC 33.6 G/dL (31.0-37.0); MEAN CORPUSCULAR VOLUME 90 fL (80-100); MONOCYTES # (AUTO) 0.8 K/uL (0.1-1.0); MONOCYTES % (AUTO) 6.6 % (2.0-9.0); NEUTROPHILS # (AUTO) 7.6 K/uL (1.8-7.7); NEUTROPHILS % (AUTO) 61.9 % (40.0-70.0); PLATELET COUNT (AUTO) 326 K/uL (150-450); RED BLOOD CELL COUNT(AUTO) 4.79 MIL/uL (4.50-5.90); RED CELL DISTRIBUTION WIDTH 13.8 % (11.5-14.5)
[2022-06-23 22:23] LABS: ANION GAP 9 mmol/L (8-16); CALCIUM, TOTAL 8.6 mg/dL (8.8-10.5); CARBON DIOXIDE 25 mmol/L (22-29); CHLORIDE 105 mmol/L (98-107); CREATININE 0.95 mg/dL (0.60-1.30); GLUCOSE,RANDOM 115 mg/dL (70-110); POTASSIUM 3.6 mmol/L (3.5-5.1); SODIUM SERUM 139 mmol/L (136-145); UREA NITROGEN, BLOOD 10 mg/dL (7-18)
[2022-06-23 22:29] LABS: ALANINE AMINOTRANSFERASE 28 U/L (12-78); ALBUMIN 3.7 g/dL (3.4-5.0); ALKALINE PHOSPHATASE 107 U/L (46-116); ASPARTATE AMINOTRANSFERASE 16 U/L (15-37); BILIRUBIN,TOTAL 0.2 mg/dL (0.1-1.0); GLOMERULAR FILTR. RATE CALC > 60 mL/min (>60); TOTAL PROTEIN, SERUM 6.9 g/dL (6.4-8.2)
== END 2022-06-23 23:01 | disposition left against medical advice (07) ==
LOC: EMS 22:04
DX: F41.9 Anxiety disorder, unspecified (principal); F48.9 Nonpsychotic mental disorder, unspecified; Z53.21 Procedure and treatment not carried out due to patient leaving prior to being seen by health care provider; Z79.899 Other long term (current) drug therapy
CPT/HCPCS: 80053; 85025; 36415; G0480

== ENCOUNTER 2022-06-30 23:07 | Emergency (ER) | payer MEDICARE, OTHER ==
[~2022-06-30] VITALS: Ht 182.9 cm; Wt 90.0 kg
[2022-06-30] MEDS ORDERED: LORazepam 1 MG TABLET PO ONE (23:30)
[2022-06-30] MEDS ORDERED: OLAN10TA74 PO (23:57)
[2022-07-01] MEDS ORDERED: ALBU8HFA IH (00:01)
[2022-07-01 00:04] VITALS: BP 126/82
== END 2022-07-01 00:06 | disposition home or self-care (01) ==
LOC: EMS 23:11
DX: F15.951 Other stimulant use, unspecified with stimulant-induced psychotic disorder with hallucinations (principal); F20.9 Schizophrenia, unspecified; F41.9 Anxiety disorder, unspecified; J45.909 Unspecified asthma, uncomplicated; F17.210 Nicotine dependence, cigarettes, uncomplicated; F12.90 Cannabis use, unspecified, uncomplicated; F10.90 Alcohol use, unspecified, uncomplicated; Z98.890 Other specified postprocedural states; Z76.0 Encounter for issue of repeat prescription
CPT/HCPCS: 99283

== ENCOUNTER 2022-07-04 09:36 | Emergency (ER) | payer MEDICARE, OTHER ==
[~2022-07-04] VITALS: Ht 180.3 cm; Wt 91.0 kg
[~2022-07-04 09:36] MED LIST changes: +ALBU8HFA IH
[2022-07-04 10:18] VITALS: BP 131/67
[2022-07-04] MEDS ORDERED: HydrOXYzine HCL 25 MG TABLET PO ONE (10:45)
[2022-07-04] MEDS ORDERED: HALOPERIDOL 5 MG TABLET PO ONE (10:45)
== END 2022-07-04 12:31 | disposition home or self-care (01) ==
LOC: EMS 09:47
DX: F41.9 Anxiety disorder, unspecified (principal); F15.90 Other stimulant use, unspecified, uncomplicated; J45.909 Unspecified asthma, uncomplicated; F32.A Depression, unspecified; F20.9 Schizophrenia, unspecified; F17.210 Nicotine dependence, cigarettes, uncomplicated; F12.90 Cannabis use, unspecified, uncomplicated; F10.90 Alcohol use, unspecified, uncomplicated; Z98.890 Other specified postprocedural states
CPT/HCPCS: 99283

== ENCOUNTER 2022-07-04 19:29 | Emergency (ER) | payer MEDICARE, OTHER ==
[~2022-07-04] VITALS: Ht 180.3 cm; Wt 90.9 kg
[2022-07-04 20:09] VITALS: BP 142/78
== END 2022-07-04 21:54 | disposition left against medical advice (07) ==
LOC: EMS 20:41
DX: F19.980 Other psychoactive substance use, unspecified with psychoactive substance-induced anxiety disorder (principal); J45.909 Unspecified asthma, uncomplicated; F32.A Depression, unspecified; F20.9 Schizophrenia, unspecified; F15.10 Other stimulant abuse, uncomplicated; F17.210 Nicotine dependence, cigarettes, uncomplicated; F10.90 Alcohol use, unspecified, uncomplicated; Z98.890 Other specified postprocedural states
CPT/HCPCS: 99281; Z7502

== ENCOUNTER 2022-07-05 07:10 | Emergency (ER) | payer MEDICARE, OTHER ==
[~2022-07-05] VITALS: Ht 180.3 cm; Wt 91.0 kg
[2022-07-05] MEDS ORDERED: SODIUM CHLORIDE 0.9% 1,000 ML IV ONE (08:30)
[2022-07-05] MEDS ORDERED: LORazepam 1 MG TABLET PO ONE (08:45)
[2022-07-05 08:52] LABS: BASOPHILS % (AUTO) 0.5 % (0.0-2.0); EOSINOPHILS % (AUTO) 1.8 % (1.0-6.0); HEMATOCRIT 43.8 % (41-53); HEMOGLOBIN 14.8 g/dL (13.5-17.5); LYMPHOCYTES # (AUTO) 1.7 K/uL (1.0-4.8); MEAN CORPUSCULAR HEMOGLOBIN 30.7 pg (26.0-34.0); MEAN CORPUSCULAR HGB CONC 33.7 G/dL (31.0-37.0); MEAN CORPUSCULAR VOLUME 91 fL (80-100); MONOCYTES # (AUTO) 0.5 K/uL (0.1-1.0); MONOCYTES % (AUTO) 5.4 % (2.0-9.0); NEUTROPHILS # (AUTO) 7.1 K/uL (1.8-7.7); NEUTROPHILS % (AUTO) 74.3 % (40.0-70.0); PLATELET COUNT (AUTO) 304 K/uL (150-450); RED BLOOD CELL COUNT(AUTO) 4.82 MIL/uL (4.50-5.90); RED CELL DISTRIBUTION WIDTH 13.7 % (11.5-14.5)
[2022-07-05 09:06] LABS: ANION GAP 8 mmol/L (8-16); CALCIUM, TOTAL 9.2 mg/dL (8.8-10.5); CARBON DIOXIDE 28 mmol/L (22-29); CHLORIDE 104 mmol/L (98-107); CREATININE 0.95 mg/dL (0.60-1.30); GLOMERULAR FILTR. RATE CALC > 60 mL/min (>60); GLUCOSE,RANDOM 98 mg/dL (70-110); POTASSIUM 4.4 mmol/L (3.5-5.1); SODIUM SERUM 140 mmol/L (136-145); UREA NITROGEN, BLOOD 7 mg/dL (7-18)
[2022-07-05 09:11] LABS: ALANINE AMINOTRANSFERASE 28 U/L (12-78); ALKALINE PHOSPHATASE 91 U/L (46-116); ASPARTATE AMINOTRANSFERASE 18 U/L (15-37); BILIRUBIN,TOTAL 0.4 mg/dL (0.1-1.0); TOTAL PROTEIN, SERUM 7.3 g/dL (6.4-8.2)
[2022-07-05 10:45] VITALS: BP 122/84
== END 2022-07-05 11:00 | disposition home or self-care (01) ==
LOC: EMS 07:34
DX: F15.10 Other stimulant abuse, uncomplicated (principal); F41.9 Anxiety disorder, unspecified; J45.909 Unspecified asthma, uncomplicated; F32.A Depression, unspecified; F20.9 Schizophrenia, unspecified; F17.210 Nicotine dependence, cigarettes, uncomplicated; F12.90 Cannabis use, unspecified, uncomplicated; F10.90 Alcohol use, unspecified, uncomplicated; Z98.890 Other specified postprocedural states
CPT/HCPCS: 80053; 85025; 99283

== ENCOUNTER 2022-07-07 14:04 | Emergency (ER) | payer MEDICARE, OTHER ==
[~2022-07-07] VITALS: Ht 188 cm; Wt 75.0 kg
[~2022-07-07 14:04] MED LIST changes: +ALBU18HF12 IH; -ALBU8HFA IH
[2022-07-07 14:15] VITALS: BP 124/80
[2022-07-07] MEDS ORDERED: HALOPERIDOL 5 MG TABLET PO ONE (15:30)
[2022-07-12] MEDS ORDERED: ALBU18HF12 IH (10:32)
== END 2022-07-07 15:41 | disposition home or self-care (01) ==
LOC: EMS 14:10
DX: F41.9 Anxiety disorder, unspecified (principal); F15.10 Other stimulant abuse, uncomplicated; J45.909 Unspecified asthma, uncomplicated; F32.A Depression, unspecified; F20.9 Schizophrenia, unspecified; F17.210 Nicotine dependence, cigarettes, uncomplicated
CPT/HCPCS: 99283

== ENCOUNTER 2022-07-10 18:50 | Emergency (ER) | payer MEDICARE, OTHER ==
[~2022-07-10] VITALS: Ht 180.3 cm; Wt 90.9 kg
[~2022-07-10 18:50] MED LIST changes: -ALBU18HF12 IH; +ALBU8HFA IH
[2022-07-10 18:51] VITALS: BP 136/76
== END 2022-07-10 20:00 | disposition left against medical advice (07) ==
LOC: EMS 18:59
DX: F41.9 Anxiety disorder, unspecified (principal); Z53.21 Procedure and treatment not carried out due to patient leaving prior to being seen by health care provider

== ENCOUNTER 2022-07-11 08:40 | Emergency (ER) | payer MEDICARE, OTHER ==
[2022-07-12] MEDS ORDERED: OLAN10TA74 PO (10:32)
[2022-07-12] MEDS ORDERED: ALBU8HFA IH (10:32)
== END 2022-07-11 10:27 | disposition left against medical advice (07) ==
LOC: EMS 08:47
DX: F41.9 Anxiety disorder, unspecified (principal); Z53.21 Procedure and treatment not carried out due to patient leaving prior to being seen by health care provider

== ENCOUNTER 2022-07-12 10:19 | Emergency (ER) | payer MEDICARE, OTHER ==
[~2022-07-12] VITALS: Ht 182.9 cm; Wt 90.9 kg
[2022-07-12 10:30] VITALS: BP 98/64
[2022-07-12] MEDS ORDERED: OLAN10TA74 PO (10:32)
[2022-07-12] MEDS ORDERED: ALBU8HFA IH (10:32)
[2022-07-12] MEDS ORDERED: HALOPERIDOL 5 MG TABLET PO ONE (11:15)
== END 2022-07-12 12:27 | disposition home or self-care (01) ==
LOC: EMS 10:22
DX: F19.251 Other psychoactive substance dependence with psychoactive substance-induced psychotic disorder with hallucinations (principal); F41.9 Anxiety disorder, unspecified; J45.909 Unspecified asthma, uncomplicated; F32.A Depression, unspecified; F20.9 Schizophrenia, unspecified; F17.210 Nicotine dependence, cigarettes, uncomplicated; F12.90 Cannabis use, unspecified, uncomplicated; F15.90 Other stimulant use, unspecified, uncomplicated; F10.90 Alcohol use, unspecified, uncomplicated; Z98.890 Other specified postprocedural states
CPT/HCPCS: 99283

== ENCOUNTER 2022-07-21 22:34 | Emergency (ER) | payer MEDICARE, OTHER ==
[~2022-07-21] VITALS: Ht 180.3 cm; Wt 90.9 kg
[~2022-07-21 22:34] MED LIST changes: -HALO5TAB23 PO
[2022-07-21 22:38] VITALS: BP 129/88
== END 2022-07-22 00:28 | disposition left against medical advice (07) ==
LOC: EMS 22:46
DX: Z53.21 Procedure and treatment not carried out due to patient leaving prior to being seen by health care provider (principal)
CPT/HCPCS: 99281; Z7502

== ENCOUNTER 2022-07-22 03:27 | Inpatient (IN) | payer MEDICARE, MEDICAID ==
[~2022-07-22] VITALS: Ht 180.3 cm; Wt 87.1 kg
[2022-07-22] MEDS ORDERED: HALOPERIDOL 5 MG TABLET PO ONE (04:30)
[2022-07-22 04:43] LABS: COVID AG,FIA SOURCE NASAL SWAB
[2022-07-22] MEDS ORDERED: DiphenhydrAMINE HCL 25 MG CAPSULE PO ONE (04:45)
[2022-07-22] MEDS ORDERED: DiphenhydrAMINE HCL 50 MG CAPSULE PO ONE (04:45)
[2022-07-22 05:24] LABS: BASOPHILS % (AUTO) 0.4 % (0.0-2.0); HEMATOCRIT 43.3 % (41-53); HEMOGLOBIN 14.8 g/dL (13.5-17.5); LYMPHOCYTES % (AUTO) 16.3 % (22.0-44.0); MEAN CORPUSCULAR HGB CONC 34.2 G/dL (31.0-37.0); MEAN CORPUSCULAR VOLUME 91 fL (80-100); MONOCYTES # (AUTO) 0.7 K/uL (0.1-1.0); MONOCYTES % (AUTO) 5.8 % (2.0-9.0); NEUTROPHILS # (AUTO) 9.2 K/uL (1.8-7.7); NEUTROPHILS % (AUTO) 76.5 % (40.0-70.0); PLATELET COUNT (AUTO) 317 K/uL (150-450); RED BLOOD CELL COUNT(AUTO) 4.77 MIL/uL (4.50-5.90); RED CELL DISTRIBUTION WIDTH 13.9 % (11.5-14.5)
[2022-07-22 05:29] LABS: ANION GAP 6 mmol/L (8-16); CALCIUM, TOTAL 9.2 mg/dL (8.8-10.5); CARBON DIOXIDE 29 mmol/L (22-29); CHLORIDE 105 mmol/L (98-107); CREATININE 0.97 mg/dL (0.60-1.30); GLOMERULAR FILTR. RATE CALC > 60 mL/min (>60); GLUCOSE,RANDOM 93 mg/dL (70-110); SODIUM SERUM 140 mmol/L (136-145); UREA NITROGEN, BLOOD 10 mg/dL (7-18)
[2022-07-22 05:35] LABS: ALANINE AMINOTRANSFERASE 30 U/L (12-78); ALBUMIN 4.3 g/dL (3.4-5.0); ALKALINE PHOSPHATASE 96 U/L (46-116); ASPARTATE AMINOTRANSFERASE 20 U/L (15-37); BILIRUBIN,TOTAL 0.3 mg/dL (0.1-1.0); TOTAL PROTEIN, SERUM 7.3 g/dL (6.4-8.2)
[2022-07-22] MEDS ORDERED: NICOTINE 21 MG/24 HOUR PATCH TD ONE (07:00)
[2022-07-22] MEDS ORDERED: ZOLPIDEM TARTRATE 10 MG TABLET PO PRN (07:30)
[2022-07-22] MEDS ORDERED: HALOPERIDOL 5 MG TABLET PO PRN (07:30)
[2022-07-22 22:38] VITALS: BP 130/84
[2022-07-22] MEDS ORDERED: INFLUENZA VIRUS VACCINE QVS 2022-23 (6MO+)/PF 60 MCG/0.5 ML SYRINGE IM. ONE (23:00)
[2022-07-22] MEDS ORDERED: PNEUMOCOCCAL VACCINE POLYVALENT 0.5 ML VIAL [PPSV23] IM. ONE (23:00)
[2022-07-23] MEDS ORDERED: CloNIDine HCL 0.1 MG TABLET PO PRN (05:45)
[2022-07-23] MEDS ORDERED: ALBUTEROL SULFATE HFA 90 MCG/PUFF 8 GM INHALER IH PRN (05:45)
[2022-07-23] MEDS ORDERED: MAG HYDROX/AL HYDROX/SIMETH ES 30 ML SUSPENSION UDCUP PO PRN (05:45)
[2022-07-23] MEDS ORDERED: BACITRACIN 28 GM OINTMENT TP PRN (05:45)
[2022-07-23] MEDS ORDERED: BENZOCAINE/MENTHOL LOZENGE PO PRN (05:45)
[2022-07-23] MEDS ORDERED: ONDANSETRON HCL 4 MG TABLET PO PRN (05:45)
[2022-07-23] MEDS ORDERED: DOCUSATE SODIUM 100 MG CAPSULE PO PRN (05:45)
[2022-07-23] MEDS ORDERED: MAGNESIUM HYDROXIDE SUSPENSION 30 ML UDCUP PO PRN (05:45)
[2022-07-23] MEDS ORDERED: PETROLATUM,WHITE 28 GM JELLY TP PRN (05:45)
[2022-07-23] MEDS ORDERED: IBUPROFEN 600 MG TABLET PO PRN (05:45)
[2022-07-23] MEDS ORDERED: ACETAMINOPHEN 325 MG TABLET PO PRN (05:45)
[2022-07-23] MEDS ORDERED: LOPERAMIDE HCL 2 MG CAPSULE PO PRN (05:45)
[2022-07-23] MEDS ORDERED: OMEPRAZOLE 20 MG CAPSULE PO PRN (05:45)
[2022-07-23] MEDS ORDERED: BENZOCAINE 10% 7 GM GEL TP PRN (09:30)
[2022-07-23 09:56] VITALS: BP 109/66
[2022-07-23] MEDS: NICOTINE 21 MG/24 HOUR PATCH TD SCH (10:33)
[2022-07-23 20:11] VITALS: BP 120/82
[2022-07-24] MEDS: NICOTINE 21 MG/24 HOUR PATCH TD SCH (08:20)
[2022-07-24 08:31] VITALS: BP 123/72
[2022-07-24] MEDS ORDERED: OLAN7.5T22 PO (12:13)
[2022-07-24] MEDS ORDERED: OLANZapine 7.5 MG TABLET PO SCH (21:00)
== END 2022-07-24 13:10 | disposition home or self-care (01) | DRG 885 ==
LOC: EMS 03:30 → B2X 07:30
PROVIDERS: ADMIT Psychiatry & Neurology Psychiatry; ATTEND Psychiatry & Neurology Psychiatry
DX: F25.9 Schizoaffective disorder, unspecified (principal); R45.851 Suicidal ideations; F17.200 Nicotine dependence, unspecified, uncomplicated; J44.9 Chronic obstructive pulmonary disease, unspecified; Z20.822 Contact with and (suspected) exposure to COVID-19; F41.9 Anxiety disorder, unspecified; E55.9 Vitamin D deficiency, unspecified; F15.10 Other stimulant abuse, uncomplicated; K21.9 Gastro-esophageal reflux disease without esophagitis; K59.00 Constipation, unspecified; Z59.00 Homelessness unspecified; Z79.899 Other long term (current) drug therapy
CPT/HCPCS: 80053; 85025; 99285; G0480; J3535

== ENCOUNTER 2022-07-29 08:55 | Emergency (ER) | payer MEDICARE, OTHER ==
[~2022-07-29] VITALS: Ht 180.3 cm; Wt 90.9 kg
[~2022-07-29 08:55] MED LIST changes: -OLAN10TA74 PO; +OLAN7.5T22 PO
[2022-07-29 08:58] VITALS: BP 140/79
[2022-07-29] MEDS ORDERED: OLANZapine 5 MG TABLET PO ONE (09:30)
[2022-07-29] MEDS ORDERED: OLAN10TA74 PO (10:17)
[2022-07-29] MEDS ORDERED: HALO5TAB23 PO (10:17)
== END 2022-07-29 10:27 | disposition home or self-care (01) ==
LOC: EMS 08:59
DX: F15.10 Other stimulant abuse, uncomplicated (principal); F25.0 Schizoaffective disorder, bipolar type; F41.9 Anxiety disorder, unspecified; J45.909 Unspecified asthma, uncomplicated; F32.A Depression, unspecified; F17.210 Nicotine dependence, cigarettes, uncomplicated; F12.90 Cannabis use, unspecified, uncomplicated; Z98.890 Other specified postprocedural states
CPT/HCPCS: 99284; Z7502; Z7610

== ENCOUNTER 2022-07-30 18:10 | Emergency (ER) | payer MEDICARE, OTHER ==
[~2022-07-30 18:10] MED LIST changes: +HALO5TAB23 PO; +OLAN10TA74 PO
[2022-07-31] MEDS ORDERED: OLAN10 PO (09:48)
== END 2022-07-30 19:12 | disposition left against medical advice (07) ==
LOC: EMS 18:13
DX: Z53.21 Procedure and treatment not carried out due to patient leaving prior to being seen by health care provider (principal)

== ENCOUNTER 2022-07-31 09:41 | Emergency (ER) | payer MEDICARE, OTHER ==
[~2022-07-31] VITALS: Ht 180.3 cm; Wt 90.9 kg
[2022-07-31] MEDS ORDERED: OLAN10 PO (09:48)
[2022-07-31 12:30] VITALS: BP 116/71
== END 2022-07-31 12:54 | disposition left against medical advice (07) ==
LOC: EMS 09:55
DX: Z53.21 Procedure and treatment not carried out due to patient leaving prior to being seen by health care provider (principal)
CPT/HCPCS: 99281; Z7502

== ENCOUNTER 2022-07-31 18:04 | Emergency (ER) | payer MEDICARE, OTHER ==
[~2022-07-31] VITALS: Ht 180.3 cm; Wt 90.9 kg
[~2022-07-31 18:04] MED LIST changes: +OLAN10 PO
[2022-07-31 18:13] VITALS: BP 130/86
== END 2022-07-31 22:00 | disposition left against medical advice (07) ==
LOC: EMS 18:04
DX: Z53.21 Procedure and treatment not carried out due to patient leaving prior to being seen by health care provider (principal)
CPT/HCPCS: 99281; Z7502

== ENCOUNTER 2022-08-06 19:39 | Emergency (ER) | payer MEDICARE, OTHER ==
[~2022-08-06] VITALS: Ht 180.3 cm; Wt 92.7 kg
[~2022-08-06 19:39] MED LIST changes: -OLAN10TA74 PO; -OLAN7.5T22 PO
[2022-08-06 19:50] VITALS: BP 119/82
[2022-08-06 20:36] LABS: COVID AG,FIA SOURCE NASAL SWAB
[2022-08-06 21:08] LABS: INFLUENZA TYPE A NEGATIVE FOR TYPE A (NEGATIVE); INFLUENZA TYPE B NEGATIVE FOR TYPE B (NEGATIVE)
== END 2022-08-06 21:58 | disposition home or self-care (01) ==
LOC: EMS 19:40
DX: F41.9 Anxiety disorder, unspecified (principal); J45.909 Unspecified asthma, uncomplicated; F15.90 Other stimulant use, unspecified, uncomplicated; F25.0 Schizoaffective disorder, bipolar type; F17.210 Nicotine dependence, cigarettes, uncomplicated; F12.90 Cannabis use, unspecified, uncomplicated; Z20.822 Contact with and (suspected) exposure to COVID-19
CPT/HCPCS: 87804; 99283

== ENCOUNTER 2022-08-09 11:51 | Emergency (ER) | payer MEDICARE, OTHER ==
[~2022-08-09] VITALS: Ht 180.3 cm; Wt 90.9 kg
[2022-08-09] MEDS ORDERED: HALOPERIDOL 5 MG TABLET PO ONE (13:30)
[2022-08-09] MEDS ORDERED: LORazepam 1 MG TABLET PO ONE (13:30)
[2022-08-09 13:40] VITALS: BP 131/80
== END 2022-08-09 13:41 | disposition home or self-care (01) ==
LOC: EMS 11:51
DX: F15.10 Other stimulant abuse, uncomplicated (principal); F41.9 Anxiety disorder, unspecified; F32.A Depression, unspecified; J45.909 Unspecified asthma, uncomplicated; F20.9 Schizophrenia, unspecified; F17.210 Nicotine dependence, cigarettes, uncomplicated; F12.90 Cannabis use, unspecified, uncomplicated; F10.90 Alcohol use, unspecified, uncomplicated; Z98.890 Other specified postprocedural states
CPT/HCPCS: 99284; Z7502; Z7610

== ENCOUNTER 2022-08-09 21:36 | Emergency (ER) | payer MEDICARE, OTHER ==
[~2022-08-09] VITALS: Ht 180.3 cm; Wt 90.1 kg
[2022-08-09 21:46] VITALS: BP 193/82
== END 2022-08-10 02:54 | disposition home or self-care (01) ==
LOC: EMS 21:37
DX: R11.0 Nausea (principal); Z53.21 Procedure and treatment not carried out due to patient leaving prior to being seen by health care provider
CPT/HCPCS: 99281; Z7502

== ENCOUNTER 2022-08-11 18:56 | Emergency (ER) | payer MEDICARE, OTHER ==
[~2022-08-11] VITALS: Ht 180.3 cm; Wt 88.7 kg
[2022-08-11 19:41] VITALS: BP 134/93
[2022-08-11] MEDS ORDERED: OLANZapine 5 MG TABLET PO ONE (20:00)
[2022-08-12] MEDS ORDERED: HALO5TAB23 PO (15:34)
[2022-08-12] MEDS ORDERED: OLAN10TA74 PO (15:34)
== END 2022-08-11 20:52 | disposition home or self-care (01) ==
LOC: EMS 18:58
DX: F25.0 Schizoaffective disorder, bipolar type (principal); F41.9 Anxiety disorder, unspecified; J45.909 Unspecified asthma, uncomplicated; F32.A Depression, unspecified; F17.210 Nicotine dependence, cigarettes, uncomplicated; F12.90 Cannabis use, unspecified, uncomplicated; F15.90 Other stimulant use, unspecified, uncomplicated; Z98.890 Other specified postprocedural states
CPT/HCPCS: 99283

== ENCOUNTER 2022-08-12 01:50 | Emergency (ER) | payer MEDICARE, OTHER ==
[~2022-08-12] VITALS: Ht 180.3 cm; Wt 89.5 kg
[2022-08-12 02:02] VITALS: BP 136/86
[2022-08-12] MEDS ORDERED: OLANZapine 5 MG TABLET PO ONE (05:30)
[2022-08-12] MEDS ORDERED: HALO5TAB23 PO (15:34)
[2022-08-12] MEDS ORDERED: OLAN10TA74 PO (15:34)
== END 2022-08-12 06:49 | disposition home or self-care (01) ==
LOC: EMS 01:51
DX: F20.9 Schizophrenia, unspecified (principal); F41.9 Anxiety disorder, unspecified; J45.909 Unspecified asthma, uncomplicated; F32.A Depression, unspecified; F17.210 Nicotine dependence, cigarettes, uncomplicated; F10.90 Alcohol use, unspecified, uncomplicated; F12.90 Cannabis use, unspecified, uncomplicated; F15.90 Other stimulant use, unspecified, uncomplicated; Z98.890 Other specified postprocedural states
CPT/HCPCS: 99284; Z7502; Z7610

== ENCOUNTER 2022-08-12 13:25 | Emergency (ER) | payer MEDICARE, OTHER ==
[~2022-08-12] VITALS: Ht 180.3 cm; Wt 90.9 kg
[~2022-08-12 13:25] MED LIST changes: +ALBU18HF12 IH; -ALBU8HFA IH
[2022-08-12 13:40] VITALS: BP 110/72
[2022-08-12] MEDS ORDERED: HALOPERIDOL 5 MG TABLET PO ONE (14:15)
[2022-08-12 14:42] LABS: AMPHET/METH SCREEN,URINE POSITIVE (NEGATIVE); BARBITURATE SCREEN, URINE NEGATIVE (NEGATIVE); BENZODIAZEPINES SCREEN,URINE NEGATIVE (NEGATIVE); CANNABINOID SCREEN,URINE NEGATIVE (NEGATIVE); COCAINE SCREEN,URINE POSITIVE (NEGATIVE); METHADONE SCREEN, URINE NEGATIVE (NEGATIVE); OPIATE SCREEN,URINE NEGATIVE (NEGATIVE); PHENCYCLIDINE SCREEN,URINE NEGATIVE (NEGATIVE)
[2022-08-12] MEDS ORDERED: OLAN10TA74 PO (15:34)
[2022-08-12] MEDS ORDERED: HALO5TAB23 PO (15:34)
== END 2022-08-12 16:07 | disposition home or self-care (01) ==
LOC: EMS 13:27
DX: F25.0 Schizoaffective disorder, bipolar type (principal); F15.90 Other stimulant use, unspecified, uncomplicated; F14.10 Cocaine abuse, uncomplicated; F41.9 Anxiety disorder, unspecified; J45.909 Unspecified asthma, uncomplicated; F32.A Depression, unspecified; F17.210 Nicotine dependence, cigarettes, uncomplicated; F12.90 Cannabis use, unspecified, uncomplicated
CPT/HCPCS: 80307; 99284

== ENCOUNTER 2022-08-16 15:18 | Emergency (ER) | payer MEDICARE, OTHER ==
[~2022-08-16] VITALS: Ht 180.3 cm; Wt 90.9 kg
[~2022-08-16 15:18] MED LIST changes: -ALBU18HF12 IH; +ALBU8HFA IH; +OLAN10TA74 PO
[2022-08-16 15:28] VITALS: BP 116/74
== END 2022-08-16 17:26 | disposition left against medical advice (07) ==
LOC: EMS 15:23
DX: F41.9 Anxiety disorder, unspecified (principal); J45.909 Unspecified asthma, uncomplicated; F32.A Depression, unspecified; F20.9 Schizophrenia, unspecified; F17.210 Nicotine dependence, cigarettes, uncomplicated; F12.90 Cannabis use, unspecified, uncomplicated; F15.90 Other stimulant use, unspecified, uncomplicated; Z98.890 Other specified postprocedural states
CPT/HCPCS: 99281; Z7502

== ENCOUNTER 2022-08-20 18:18 | Emergency (ER) | payer MEDICARE, OTHER ==
[~2022-08-20] VITALS: Ht 182.9 cm; Wt 90.9 kg
[~2022-08-20 18:18] MED LIST changes: +ALBU18HF12 IH; -ALBU8HFA IH
[2022-08-20 18:41] VITALS: BP 117/74
== END 2022-08-20 21:40 | disposition left against medical advice (07) ==
LOC: EMS 18:24
DX: R05.9 Cough, unspecified (principal); Z53.21 Procedure and treatment not carried out due to patient leaving prior to being seen by health care provider
CPT/HCPCS: 99281; Z7502

== ENCOUNTER 2022-08-22 20:44 | Emergency (ER) | payer MEDICARE, OTHER ==
[~2022-08-22] VITALS: Ht 180.3 cm; Wt 92.7 kg
[2022-08-22 21:47] VITALS: BP 130/88
== END 2022-08-22 23:33 | disposition home or self-care (01) ==
LOC: EMS 21:35
DX: F20.9 Schizophrenia, unspecified (principal); J45.909 Unspecified asthma, uncomplicated; F32.A Depression, unspecified; F17.210 Nicotine dependence, cigarettes, uncomplicated; F12.90 Cannabis use, unspecified, uncomplicated; F15.90 Other stimulant use, unspecified, uncomplicated; F10.90 Alcohol use, unspecified, uncomplicated; Z98.890 Other specified postprocedural states
CPT/HCPCS: 99281; Z7502

== ENCOUNTER 2022-08-26 10:41 | Emergency (ER) | payer MEDICARE, OTHER ==
[~2022-08-26] VITALS: Ht 182.9 cm; Wt 86.4 kg
[2022-08-26 10:43] VITALS: BP 107/82
[2022-08-26] MEDS ORDERED: HALO5TAB2 PO (12:33)
[2022-08-26] MEDS ORDERED: ALBUTEROL SULFATE HFA 90 MCG/PUFF 8 GM INHALER IH ONE (12:45)
== END 2022-08-26 13:16 | disposition home or self-care (01) ==
LOC: EMS 11:46
DX: J45.909 Unspecified asthma, uncomplicated (principal); F41.9 Anxiety disorder, unspecified; F32.A Depression, unspecified; F20.9 Schizophrenia, unspecified; F17.210 Nicotine dependence, cigarettes, uncomplicated; F10.90 Alcohol use, unspecified, uncomplicated; F15.90 Other stimulant use, unspecified, uncomplicated; F12.90 Cannabis use, unspecified, uncomplicated; Z98.890 Other specified postprocedural states
CPT/HCPCS: 99283; 94640; J3535

== ENCOUNTER 2022-08-30 14:04 | Emergency (ER) | payer MEDICARE, OTHER ==
[~2022-08-30] VITALS: Ht 180.3 cm; Wt 91.8 kg
[~2022-08-30 14:04] MED LIST changes: +HALO5TAB2 PO; +OLAN7.5T22 PO
[2022-08-30 16:32] VITALS: BP 135/87
[2022-08-30] MEDS ORDERED: LORazepam 1 MG TABLET PO ONE (17:15)
[2022-08-30] MEDS ORDERED: SODIUM CHLORIDE 0.9% 1,000 ML IV ONE (17:15)
== END 2022-08-30 19:49 | disposition home or self-care (01) ==
LOC: EMS 14:04
DX: F20.9 Schizophrenia, unspecified (principal); F15.10 Other stimulant abuse, uncomplicated; J45.909 Unspecified asthma, uncomplicated; F32.A Depression, unspecified; F17.210 Nicotine dependence, cigarettes, uncomplicated; F12.90 Cannabis use, unspecified, uncomplicated; Z79.899 Other long term (current) drug therapy
CPT/HCPCS: 99283; 96360; J7030

== ENCOUNTER 2022-09-01 10:30 | Emergency (ER) | payer MEDICARE, OTHER ==
[~2022-09-01] VITALS: Ht 180.3 cm; Wt 90.9 kg
[~2022-09-01 10:30] MED LIST changes: -HALO5TAB23 PO; -OLAN10 PO; -OLAN7.5T22 PO
[2022-09-01 10:31] VITALS: BP 124/87
[2022-09-01] MEDS ORDERED: ALBUTEROL SULFATE HFA 90 MCG/PUFF 8 GM INHALER IH ONE (11:00)
[2022-09-01] MEDS ORDERED: HydrOXYzine HCL 25 MG TABLET PO ONE (11:00)
== END 2022-09-01 11:11 | disposition home or self-care (01) ==
LOC: EMS 10:32
DX: F41.9 Anxiety disorder, unspecified (principal); F15.90 Other stimulant use, unspecified, uncomplicated; J45.909 Unspecified asthma, uncomplicated; F32.A Depression, unspecified; F20.9 Schizophrenia, unspecified; F12.90 Cannabis use, unspecified, uncomplicated; F17.210 Nicotine dependence, cigarettes, uncomplicated; F10.90 Alcohol use, unspecified, uncomplicated; Z98.890 Other specified postprocedural states
CPT/HCPCS: 99283; 94640; J3535

== ENCOUNTER 2022-09-03 13:39 | Emergency (ER) | payer MEDICARE, OTHER ==
[~2022-09-03] VITALS: Ht 180.3 cm; Wt 90.9 kg
[2022-09-03 14:08] VITALS: BP 113/74
[2022-09-03] MEDS ORDERED: HALOPERIDOL 5 MG TABLET PO ONE (15:00)
== END 2022-09-03 15:15 | disposition left against medical advice (07) ==
LOC: EMS 13:49
DX: Z53.21 Procedure and treatment not carried out due to patient leaving prior to being seen by health care provider (principal)
CPT/HCPCS: 99281; Z7502; Z7610

== ENCOUNTER 2022-09-05 22:23 | Emergency (ER) | payer MEDICARE, OTHER ==
[~2022-09-05] VITALS: Ht 180.3 cm; Wt 91.8 kg
[2022-09-05 22:31] VITALS: BP 112/74
[2022-09-05] MEDS ORDERED: TRAZ-252 PO (22:38)
== END 2022-09-06 01:15 | disposition left against medical advice (07) ==
LOC: EMS 22:28
DX: M54.50 Low back pain, unspecified (principal); Z53.21 Procedure and treatment not carried out due to patient leaving prior to being seen by health care provider
CPT/HCPCS: 99281; Z7502

== ENCOUNTER 2022-09-06 10:22 | Emergency (ER) | payer MEDICARE, OTHER ==
[~2022-09-06] VITALS: Ht 180.3 cm; Wt 72.7 kg
[~2022-09-06 10:22] MED LIST changes: +TRAZ-252 PO
[2022-09-06] MEDS ORDERED: IBUPROFEN 600 MG TABLET PO ONE (11:00)
[2022-09-06] MEDS ORDERED: LIDOCAINE 5% TRANSDERMAL PATCH TD ONE (11:00)
[2022-09-06 11:27] VITALS: BP 127/88
== END 2022-09-06 11:39 | disposition home or self-care (01) ==
LOC: EMS 10:22
DX: M54.50 Low back pain, unspecified (principal); F41.9 Anxiety disorder, unspecified; J45.909 Unspecified asthma, uncomplicated; F32.A Depression, unspecified; F20.9 Schizophrenia, unspecified; F15.10 Other stimulant abuse, uncomplicated; F17.210 Nicotine dependence, cigarettes, uncomplicated; F12.90 Cannabis use, unspecified, uncomplicated
CPT/HCPCS: 99282; Z7502; Z7610

== ENCOUNTER 2022-09-08 22:05 | Emergency (ER) | payer MEDICARE, OTHER ==
[~2022-09-08] VITALS: Ht 180.3 cm; Wt 91.8 kg
[2022-09-08 22:11] VITALS: BP 116/80
== END 2022-09-08 23:37 | disposition home or self-care (01) ==
LOC: EMS 22:05
DX: F41.9 Anxiety disorder, unspecified (principal); J45.909 Unspecified asthma, uncomplicated; F32.A Depression, unspecified; F20.9 Schizophrenia, unspecified; F17.210 Nicotine dependence, cigarettes, uncomplicated; F12.90 Cannabis use, unspecified, uncomplicated; F15.90 Other stimulant use, unspecified, uncomplicated; Z98.890 Other specified postprocedural states
CPT/HCPCS: 99281; Z7502

== ENCOUNTER 2022-09-10 14:48 | Emergency (ER) | payer MEDICARE, OTHER ==
[~2022-09-10] VITALS: Ht 180.3 cm; Wt 90.9 kg
[2022-09-10 14:49] VITALS: BP 116/69
[2022-09-10] MEDS ORDERED: HydrOXYzine HCL 25 MG TABLET PO ONE (15:00)
[2022-09-10] MEDS ORDERED: ALBU18HF12 IH (15:02)
== END 2022-09-10 15:20 | disposition home or self-care (01) ==
LOC: EMS 14:52
DX: F41.9 Anxiety disorder, unspecified (principal); F15.10 Other stimulant abuse, uncomplicated; J45.909 Unspecified asthma, uncomplicated; F32.A Depression, unspecified; F20.9 Schizophrenia, unspecified; F17.210 Nicotine dependence, cigarettes, uncomplicated; F12.90 Cannabis use, unspecified, uncomplicated; Z98.890 Other specified postprocedural states; Z76.0 Encounter for issue of repeat prescription
CPT/HCPCS: 99283

== ENCOUNTER 2022-09-16 12:38 | Emergency (ER) | payer MEDICARE, OTHER ==
[~2022-09-16] VITALS: Ht 177.8 cm; Wt 72.7 kg
[2022-09-16 12:54] VITALS: BP 99/62
== END 2022-09-16 16:08 | disposition left against medical advice (07) ==
LOC: EMS 12:55
DX: F15.90 Other stimulant use, unspecified, uncomplicated (principal); Z53.21 Procedure and treatment not carried out due to patient leaving prior to being seen by health care provider
CPT/HCPCS: 99281; Z7502

== ENCOUNTER 2022-09-21 09:07 | Emergency (ER) | payer MEDICARE, OTHER ==
[~2022-09-21] VITALS: Ht 180.3 cm; Wt 91.0 kg
[2022-09-21 09:09] VITALS: BP 117/78
== END 2022-09-21 10:00 | disposition left against medical advice (07) ==
LOC: EMS 09:07
DX: Z53.21 Procedure and treatment not carried out due to patient leaving prior to being seen by health care provider (principal)
CPT/HCPCS: 99281; Z7502

== ENCOUNTER 2022-09-23 08:49 | Emergency (ER) | payer MEDICARE, OTHER ==
[~2022-09-23] VITALS: Ht 180.3 cm; Wt 81.8 kg
[2022-09-23 08:58] VITALS: BP 125/65
[2022-09-23] MEDS ORDERED: HALOPERIDOL 5 MG TABLET PO ONE (10:00)
[2022-09-23] MEDS ORDERED: DiphenhydrAMINE HCL 50 MG CAPSULE PO ONE (10:00)
== END 2022-09-23 10:43 | disposition home or self-care (01) ==
LOC: EMS 08:49
DX: F41.9 Anxiety disorder, unspecified (principal); F15.10 Other stimulant abuse, uncomplicated; J45.909 Unspecified asthma, uncomplicated; F32.A Depression, unspecified; F20.9 Schizophrenia, unspecified; F17.210 Nicotine dependence, cigarettes, uncomplicated; F12.90 Cannabis use, unspecified, uncomplicated; Z98.890 Other specified postprocedural states
CPT/HCPCS: 99283

== ENCOUNTER 2022-09-25 08:13 | Emergency (ER) | payer MEDICARE, OTHER ==
[~2022-09-25] VITALS: Ht 180.3 cm; Wt 91.8 kg
[2022-09-25 08:15] VITALS: BP 114/67
== END 2022-09-25 10:12 | disposition left against medical advice (07) ==
LOC: EMS 08:14
DX: F41.9 Anxiety disorder, unspecified (principal); J45.909 Unspecified asthma, uncomplicated; F32.A Depression, unspecified; F20.9 Schizophrenia, unspecified; F17.210 Nicotine dependence, cigarettes, uncomplicated; F12.90 Cannabis use, unspecified, uncomplicated; F15.90 Other stimulant use, unspecified, uncomplicated
CPT/HCPCS: 99281; Z7502

== ENCOUNTER 2022-09-29 06:36 | Emergency (ER) | payer MEDICARE, OTHER ==
[~2022-09-29] VITALS: Ht 180.3 cm; Wt 91.8 kg
[2022-09-29 06:43] VITALS: BP 128/77
[2022-09-29] MEDS ORDERED: LORazepam 1 MG TABLET PO ONE (06:45)
== END 2022-09-29 06:49 | disposition home or self-care (01) ==
LOC: EMS 06:36
DX: F41.9 Anxiety disorder, unspecified (principal); F15.10 Other stimulant abuse, uncomplicated; F17.210 Nicotine dependence, cigarettes, uncomplicated; J45.909 Unspecified asthma, uncomplicated; F32.A Depression, unspecified; F20.9 Schizophrenia, unspecified; F12.90 Cannabis use, unspecified, uncomplicated
CPT/HCPCS: 99283; 99406

== ENCOUNTER 2022-10-01 11:26 | Emergency (ER) | payer MEDICARE, OTHER ==
[~2022-10-01] VITALS: Ht 180.3 cm; Wt 81.8 kg
[2022-10-01 11:52] VITALS: BP 120/82
== END 2022-10-01 13:15 | disposition left against medical advice (07) ==
LOC: EMS 11:48
DX: Z53.21 Procedure and treatment not carried out due to patient leaving prior to being seen by health care provider (principal)
CPT/HCPCS: 99281; Z7502

== ENCOUNTER 2022-10-01 15:53 | Emergency (ER) | payer MEDICARE, OTHER ==
[~2022-10-01] VITALS: Ht 180.3 cm; Wt 80.8 kg
[2022-10-01 17:09] VITALS: BP 128/92
== END 2022-10-01 18:19 | disposition left against medical advice (07) ==
LOC: EMS 16:03
DX: Z53.21 Procedure and treatment not carried out due to patient leaving prior to being seen by health care provider (principal)
CPT/HCPCS: 99281; Z7502

== ENCOUNTER 2022-10-06 11:46 | Emergency (ER) | payer MEDICARE, OTHER ==
[~2022-10-06] VITALS: Ht 180.3 cm; Wt 95.5 kg
[2022-10-06 11:58] VITALS: BP 115/74
[2022-10-06] MEDS ORDERED: ALBUTEROL SULFATE HFA 90 MCG/PUFF 8 GM INHALER IH ONE (12:30)
== END 2022-10-06 12:37 | disposition home or self-care (01) ==
LOC: EMS 11:47
DX: J45.909 Unspecified asthma, uncomplicated (principal); F41.9 Anxiety disorder, unspecified; F32.A Depression, unspecified; F20.9 Schizophrenia, unspecified; F17.210 Nicotine dependence, cigarettes, uncomplicated; F12.90 Cannabis use, unspecified, uncomplicated; F19.90 Other psychoactive substance use, unspecified, uncomplicated; Z79.899 Other long term (current) drug therapy
CPT/HCPCS: 99283; 94640; J3535

== ENCOUNTER 2022-10-07 09:11 | Emergency (ER) | payer MEDICARE, OTHER ==
[~2022-10-07] VITALS: Ht 180.3 cm; Wt 95.0 kg
[2022-10-07 09:44] VITALS: BP 105/66
[2022-10-07 09:59] LABS: BASOPHILS % (AUTO) 0.5 % (0.0-2.0); EOSINOPHILS % (AUTO) 2.5 % (1.0-6.0); HEMATOCRIT 44.2 % (41-53); HEMOGLOBIN 14.4 g/dL (13.5-17.5); LYMPHOCYTES # (AUTO) 2.3 K/uL (1.0-4.8); LYMPHOCYTES % (AUTO) 18.2 % (22.0-44.0); MEAN CORPUSCULAR HEMOGLOBIN 29.9 pg (26.0-34.0); MEAN CORPUSCULAR HGB CONC 32.6 G/dL (31.0-37.0); MEAN CORPUSCULAR VOLUME 92 fL (80-100); MONOCYTES % (AUTO) 7.5 % (2.0-9.0); NEUTROPHILS # (AUTO) 9.1 K/uL (1.8-7.7); NEUTROPHILS % (AUTO) 71.3 % (40.0-70.0); PLATELET COUNT (AUTO) 325 K/uL (150-450); RED BLOOD CELL COUNT(AUTO) 4.82 MIL/uL (4.50-5.90); RED CELL DISTRIBUTION WIDTH 13.9 % (11.5-14.5)
[2022-10-07 10:16] LABS: ANION GAP 6 mmol/L (8-16); CARBON DIOXIDE 27 mmol/L (22-29); CHLORIDE 103 mmol/L (98-107); CREATININE 0.97 mg/dL (0.60-1.30); GLOMERULAR FILTR. RATE CALC > 60 mL/min (>60); GLUCOSE,RANDOM 118 mg/dL (70-110); POTASSIUM 3.9 mmol/L (3.5-5.1); SODIUM SERUM 136 mmol/L (136-145)
[2022-10-07 10:28] LABS: ALANINE AMINOTRANSFERASE 44 U/L (12-78); ALBUMIN 4.1 g/dL (3.4-5.0); ALKALINE PHOSPHATASE 115 U/L (46-116); ASPARTATE AMINOTRANSFERASE 22 U/L (15-37); BILIRUBIN,TOTAL 0.5 mg/dL (0.1-1.0); TOTAL PROTEIN, SERUM 7.2 g/dL (6.4-8.2)
== END 2022-10-07 11:15 | disposition home or self-care (01) ==
LOC: EMS 09:31
DX: F41.9 Anxiety disorder, unspecified (principal); F32.A Depression, unspecified; F20.9 Schizophrenia, unspecified; F17.210 Nicotine dependence, cigarettes, uncomplicated; J45.909 Unspecified asthma, uncomplicated; F12.90 Cannabis use, unspecified, uncomplicated; F19.90 Other psychoactive substance use, unspecified, uncomplicated
CPT/HCPCS: 99284; 80053; 85025; 36415; G0480

== ENCOUNTER 2022-10-09 20:09 | Emergency (ER) | payer MEDICARE, OTHER | END 2022-10-09 21:18 | disposition left against medical advice (07) | LOC: EMS 20:12 | DX: Z53.21 Procedure and treatment not carried out due to patient leaving prior to being seen by health care provider (principal) ==

== ENCOUNTER 2022-10-13 10:38 | Emergency (ER) | payer MEDICARE, OTHER ==
[~2022-10-13] VITALS: Ht 180.3 cm; Wt 90.9 kg
[2022-10-13 10:41] VITALS: BP 102/74
[2022-10-13] MEDS ORDERED: ALBU18HF12 IH (11:26)
[2022-10-13] MEDS ORDERED: ALBUTEROL SULFATE HFA 90 MCG/PUFF 8 GM INHALER IH ONE (11:30)
== END 2022-10-13 11:53 | disposition home or self-care (01) ==
LOC: EMS 10:43
DX: J45.909 Unspecified asthma, uncomplicated (principal); F41.9 Anxiety disorder, unspecified; F32.A Depression, unspecified; F20.9 Schizophrenia, unspecified; F17.210 Nicotine dependence, cigarettes, uncomplicated; F12.90 Cannabis use, unspecified, uncomplicated; F15.90 Other stimulant use, unspecified, uncomplicated; Z76.0 Encounter for issue of repeat prescription
CPT/HCPCS: 99283; 94640; J3535

== ENCOUNTER 2022-10-13 12:33 | Emergency (ER) | payer MEDICARE, OTHER ==
[~2022-10-13] VITALS: Ht 180.3 cm; Wt 90.9 kg
[2022-10-13 12:34] VITALS: BP 132/89
[2022-10-13] MEDS ORDERED: OLANZapine 5 MG TABLET PO ONE (13:15)
== END 2022-10-13 14:19 | disposition home or self-care (01) ==
LOC: EMS 12:38
DX: F41.9 Anxiety disorder, unspecified (principal); J45.909 Unspecified asthma, uncomplicated; F32.A Depression, unspecified; F20.9 Schizophrenia, unspecified; F17.210 Nicotine dependence, cigarettes, uncomplicated; F12.90 Cannabis use, unspecified, uncomplicated; F15.10 Other stimulant abuse, uncomplicated
CPT/HCPCS: 99283

== ENCOUNTER 2022-10-14 11:23 | Emergency (ER) | payer MEDICARE, OTHER ==
[~2022-10-14] VITALS: Ht 180.3 cm; Wt 93.2 kg
[2022-10-14 11:46] VITALS: BP 111/70
[2022-10-14] MEDS ORDERED: LORazepam 2 MG/ML VIAL IM ONE (12:30)
[2022-10-15] MEDS ORDERED: OLAN10TA74 PO (22:03)
== END 2022-10-14 12:56 | disposition home or self-care (01) ==
LOC: EMS 11:26
DX: F41.9 Anxiety disorder, unspecified (principal); J45.909 Unspecified asthma, uncomplicated; F32.A Depression, unspecified; F20.9 Schizophrenia, unspecified; F17.210 Nicotine dependence, cigarettes, uncomplicated; F12.90 Cannabis use, unspecified, uncomplicated; F15.90 Other stimulant use, unspecified, uncomplicated; Z98.890 Other specified postprocedural states
CPT/HCPCS: 99283; 96372; J2060

== ENCOUNTER 2022-10-15 20:22 | Emergency (ER) | payer MEDICARE, OTHER ==
[~2022-10-15] VITALS: Ht 180.3 cm; Wt 97.0 kg
[2022-10-15 21:10] VITALS: BP 114/92
[2022-10-15] MEDS ORDERED: LORazepam 1 MG TABLET PO ONE (22:00)
[2022-10-15] MEDS ORDERED: OLANZapine 5 MG TABLET PO ONE (22:00)
[2022-10-15] MEDS ORDERED: OLAN10TA74 PO (22:03)
== END 2022-10-15 23:04 | disposition home or self-care (01) ==
LOC: EMS 20:22
DX: F41.9 Anxiety disorder, unspecified (principal); F20.9 Schizophrenia, unspecified; J45.909 Unspecified asthma, uncomplicated; F32.A Depression, unspecified; F12.90 Cannabis use, unspecified, uncomplicated; F17.210 Nicotine dependence, cigarettes, uncomplicated; F15.10 Other stimulant abuse, uncomplicated
CPT/HCPCS: 99283

== ENCOUNTER 2022-10-25 09:37 | Emergency (ER) | payer MEDICARE, OTHER ==
[~2022-10-25] VITALS: Ht 180.3 cm; Wt 92.7 kg
[2022-10-25 10:45] VITALS: BP 124/76
[2022-10-25] MEDS ORDERED: DiphenhydrAMINE HCL 25 MG CAPSULE PO ONE (11:45)
[2022-10-25] MEDS ORDERED: HALOPERIDOL 5 MG TABLET PO ONE (11:45)
== END 2022-10-25 12:42 | disposition home or self-care (01) ==
LOC: EMS 09:41
DX: F25.9 Schizoaffective disorder, unspecified (principal); F41.9 Anxiety disorder, unspecified; J45.909 Unspecified asthma, uncomplicated; F32.A Depression, unspecified; F17.210 Nicotine dependence, cigarettes, uncomplicated; F12.90 Cannabis use, unspecified, uncomplicated; F19.90 Other psychoactive substance use, unspecified, uncomplicated
CPT/HCPCS: 99283

== ENCOUNTER 2022-10-26 16:04 | Emergency (ER) | payer MEDICARE, OTHER ==
[~2022-10-26] VITALS: Ht 180.3 cm; Wt 92.0 kg
[2022-10-26 16:11] VITALS: BP 134/77
== END 2022-10-26 17:25 | disposition left against medical advice (07) ==
LOC: EMS 16:04
DX: F45.9 Somatoform disorder, unspecified (principal); F41.9 Anxiety disorder, unspecified; Z53.21 Procedure and treatment not carried out due to patient leaving prior to being seen by health care provider
CPT/HCPCS: 99281; Z7502

== ENCOUNTER 2022-10-28 05:48 | Emergency (ER) | payer MEDICARE, OTHER ==
[~2022-10-28] VITALS: Ht 180.3 cm; Wt 94.1 kg
[2022-10-28 05:54] VITALS: BP 134/88
[2022-10-28] MEDS ORDERED: HydrOXYzine PAMOATE 50 MG CAPSULE PO ONE (06:30)
[2022-10-28] MEDS ORDERED: DOXY-354 PO (06:38)
[2022-10-29] MEDS ORDERED: HALO5TAB2 PO (14:19)
[2022-10-29] MEDS ORDERED: OLAN10 PO (14:23)
== END 2022-10-28 06:48 | disposition home or self-care (01) ==
LOC: EMS 05:50
DX: F41.9 Anxiety disorder, unspecified (principal); F15.90 Other stimulant use, unspecified, uncomplicated; L02.01 Cutaneous abscess of face; J45.909 Unspecified asthma, uncomplicated; F32.A Depression, unspecified; F20.9 Schizophrenia, unspecified; F12.90 Cannabis use, unspecified, uncomplicated; Z98.890 Other specified postprocedural states
CPT/HCPCS: 99283

== ENCOUNTER 2022-10-28 08:39 | Emergency (ER) | payer MEDICARE, OTHER ==
[~2022-10-28] VITALS: Ht 180.3 cm; Wt 79.5 kg
[~2022-10-28 08:39] MED LIST changes: +DOXY-354 PO
[2022-10-28 08:47] VITALS: BP 163/101
[2022-10-28] MEDS ORDERED: HALOPERIDOL 5 MG TABLET PO ONE (10:30)
[2022-10-29] MEDS ORDERED: HALO5TAB2 PO (14:19)
[2022-10-29] MEDS ORDERED: OLAN10 PO (14:23)
== END 2022-10-28 11:04 | disposition home or self-care (01) ==
LOC: EMS 08:39
DX: F41.9 Anxiety disorder, unspecified (principal); F15.90 Other stimulant use, unspecified, uncomplicated; J45.909 Unspecified asthma, uncomplicated; F32.A Depression, unspecified; F20.9 Schizophrenia, unspecified; F17.210 Nicotine dependence, cigarettes, uncomplicated; F12.90 Cannabis use, unspecified, uncomplicated; Z98.890 Other specified postprocedural states
CPT/HCPCS: 99283

== ENCOUNTER 2022-10-29 13:06 | Emergency (ER) | payer MEDICARE, OTHER ==
[~2022-10-29] VITALS: Ht 180.3 cm; Wt 93.2 kg
[~2022-10-29 13:06] MED LIST changes: -DOXY-354 PO; -TRAZ-252 PO
[2022-10-29 14:00] VITALS: BP 122/87
[2022-10-29] MEDS ORDERED: HALO5TAB2 PO (14:19)
[2022-10-29] MEDS ORDERED: OLAN10 PO (14:23)
[2022-10-29] MEDS ORDERED: HALOPERIDOL 5 MG TABLET PO ONE (14:30)
== END 2022-10-29 14:34 | disposition home or self-care (01) ==
LOC: EMS 13:13
DX: F20.9 Schizophrenia, unspecified (principal); F41.9 Anxiety disorder, unspecified; J45.909 Unspecified asthma, uncomplicated; F32.A Depression, unspecified; F17.210 Nicotine dependence, cigarettes, uncomplicated; F12.90 Cannabis use, unspecified, uncomplicated; F15.90 Other stimulant use, unspecified, uncomplicated; F10.90 Alcohol use, unspecified, uncomplicated; Z76.0 Encounter for issue of repeat prescription; Z98.890 Other specified postprocedural states
CPT/HCPCS: 99283

== ENCOUNTER 2022-11-01 21:20 | Emergency (ER) | payer MEDICARE, OTHER ==
[~2022-11-01] VITALS: Ht 180.3 cm; Wt 93.6 kg
[~2022-11-01 21:20] MED LIST changes: +OLAN10 PO; -OLAN10TA74 PO
[2022-11-01 22:03] VITALS: BP 126/71
[2022-11-01] MEDS ORDERED: BENZTROPINE MESYLATE 2 MG TABLET PO ONE (22:15)
[2022-11-01] MEDS ORDERED: HALOPERIDOL 5 MG TABLET PO ONE (22:15)
== END 2022-11-01 22:54 | disposition home or self-care (01) ==
LOC: EMS 21:20
DX: F41.9 Anxiety disorder, unspecified (principal); F15.10 Other stimulant abuse, uncomplicated; F31.9 Bipolar disorder, unspecified; J45.909 Unspecified asthma, uncomplicated; F20.9 Schizophrenia, unspecified; F17.210 Nicotine dependence, cigarettes, uncomplicated; F10.90 Alcohol use, unspecified, uncomplicated; F12.90 Cannabis use, unspecified, uncomplicated; Z98.890 Other specified postprocedural states
CPT/HCPCS: 99283

== ENCOUNTER 2022-11-03 13:33 | Emergency (ER) | payer MEDICARE, OTHER ==
[~2022-11-03] VITALS: Ht 180.3 cm; Wt 93.6 kg
[2022-11-03] MEDS ORDERED: HALOPERIDOL 5 MG TABLET PO ONE (13:45)
[2022-11-03 13:53] VITALS: BP 110/78
== END 2022-11-03 14:45 | disposition home or self-care (01) ==
LOC: EMS 13:37
DX: F41.9 Anxiety disorder, unspecified (principal); F31.9 Bipolar disorder, unspecified; F15.10 Other stimulant abuse, uncomplicated; J45.909 Unspecified asthma, uncomplicated; F20.9 Schizophrenia, unspecified; F17.210 Nicotine dependence, cigarettes, uncomplicated; F12.90 Cannabis use, unspecified, uncomplicated; Z98.890 Other specified postprocedural states
CPT/HCPCS: 99284; Z7502; Z7610

== ENCOUNTER 2022-11-06 10:55 | Emergency (ER) | payer MEDICARE, OTHER ==
[~2022-11-06] VITALS: Ht 180.3 cm; Wt 90.9 kg
[2022-11-06] MEDS ORDERED: HALOPERIDOL 5 MG TABLET PO ONE (12:30)
[2022-11-06] MEDS ORDERED: HydrOXYzine PAMOATE 25 MG CAPSULE PO ONE (12:30)
[2022-11-06 13:00] VITALS: BP 126/84
== END 2022-11-06 13:24 | disposition home or self-care (01) ==
LOC: EMS 10:57
DX: F20.9 Schizophrenia, unspecified (principal); F22 Delusional disorders; F41.9 Anxiety disorder, unspecified; J45.909 Unspecified asthma, uncomplicated; F32.A Depression, unspecified; F17.210 Nicotine dependence, cigarettes, uncomplicated; F12.90 Cannabis use, unspecified, uncomplicated; F15.90 Other stimulant use, unspecified, uncomplicated; Z98.890 Other specified postprocedural states
CPT/HCPCS: 99284; Z7502; Z7610

== ENCOUNTER 2022-11-19 21:05 | Emergency (ER) | payer MEDICARE, OTHER ==
[~2022-11-19] VITALS: Ht 180.3 cm; Wt 92.0 kg
[2022-11-19 21:17] VITALS: BP 125/72; PULSE 113; RESP 24; TEMP 98
[2022-11-20] MEDS ORDERED: HALO5TAB23 PO (07:42)
== END 2022-11-19 23:27 | disposition left against medical advice (07) ==
LOC: EMS 21:35
DX: F69 Unspecified disorder of adult personality and behavior (principal); Z53.21 Procedure and treatment not carried out due to patient leaving prior to being seen by health care provider
CPT/HCPCS: 99281; Z7502

== ENCOUNTER 2022-11-20 07:21 | Emergency (ER) | payer MEDICARE, OTHER ==
[~2022-11-20] VITALS: Ht 177.8 cm; Wt 84.1 kg
[2022-11-20 07:22] VITALS: TEMP 98.1
[2022-11-20] MEDS ORDERED: HALO5TAB23 PO (07:42)
[2022-11-20] MEDS ORDERED: HALOPERIDOL 5 MG TABLET PO ONE (07:45)
[2022-11-20 07:47] VITALS: BP 143/97; PULSE 98; RESP 22
== END 2022-11-20 08:43 | disposition home or self-care (01) ==
LOC: EMS 07:23
DX: F20.9 Schizophrenia, unspecified (principal); F41.9 Anxiety disorder, unspecified; J45.909 Unspecified asthma, uncomplicated; F32.A Depression, unspecified; F15.10 Other stimulant abuse, uncomplicated; F17.210 Nicotine dependence, cigarettes, uncomplicated; F12.90 Cannabis use, unspecified, uncomplicated
CPT/HCPCS: 99283

== ENCOUNTER 2022-11-22 07:44 | Emergency (ER) | payer MEDICARE, OTHER ==
[~2022-11-22] VITALS: Ht 180.3 cm; Wt 90.9 kg
[~2022-11-22 07:44] MED LIST changes: +HALO5TAB23 PO
[2022-11-22 07:47] VITALS: TEMP 98.1
[2022-11-22] MEDS ORDERED: OLANZapine 5 MG TABLET PO ONE (08:30)
[2022-11-22 08:44] VITALS: BP 112/87; PULSE 118; RESP 18
[2022-11-22] MEDS ORDERED: OLAN10TA74 PO (19:05)
== END 2022-11-22 09:54 | disposition home or self-care (01) ==
LOC: EMS 07:47
DX: F25.9 Schizoaffective disorder, unspecified (principal); F41.9 Anxiety disorder, unspecified; J45.909 Unspecified asthma, uncomplicated; F32.A Depression, unspecified; F17.210 Nicotine dependence, cigarettes, uncomplicated; F10.90 Alcohol use, unspecified, uncomplicated; F12.90 Cannabis use, unspecified, uncomplicated; F15.90 Other stimulant use, unspecified, uncomplicated; Z98.890 Other specified postprocedural states
CPT/HCPCS: 99283

== ENCOUNTER 2022-11-25 15:34 | Emergency (ER) | payer MEDICARE, OTHER ==
[~2022-11-25] VITALS: Ht 180.3 cm; Wt 92.7 kg
[~2022-11-25 15:34] MED LIST changes: -HALO5TAB2 PO; -OLAN10 PO; +OLAN10TA74 PO
[2022-11-25 15:41] VITALS: BP 114/75; PULSE 126; RESP 28; TEMP 98.3
[2022-11-25] MEDS ORDERED: HALO2ORA11 PO (15:42)
== END 2022-11-25 16:17 | disposition home or self-care (01) ==
LOC: EMS 15:43
DX: F15.10 Other stimulant abuse, uncomplicated (principal); F25.9 Schizoaffective disorder, unspecified; F41.9 Anxiety disorder, unspecified; J45.909 Unspecified asthma, uncomplicated; F32.A Depression, unspecified; F17.210 Nicotine dependence, cigarettes, uncomplicated; F10.90 Alcohol use, unspecified, uncomplicated; F12.90 Cannabis use, unspecified, uncomplicated; Z98.890 Other specified postprocedural states; Y90.9 Presence of alcohol in blood, level not specified
CPT/HCPCS: 99281; Z7502

== ENCOUNTER 2022-11-27 18:57 | Emergency (ER) | payer MEDICARE, OTHER ==
[~2022-11-27 18:57] MED LIST changes: +HALO2ORA11 PO; -HALO5TAB23 PO
== END 2022-11-27 22:04 | disposition left against medical advice (07) ==
LOC: EMS 19:01
DX: Z76.0 Encounter for issue of repeat prescription (principal); Z53.21 Procedure and treatment not carried out due to patient leaving prior to being seen by health care provider
CPT/HCPCS: 99281; Z7502

== ENCOUNTER 2022-11-29 10:44 | Emergency (ER) | payer MEDICARE, OTHER ==
[~2022-11-29] VITALS: Ht 180.3 cm; Wt 95.5 kg
[2022-11-29 10:52] VITALS: TEMP 98.3
[2022-11-29] MEDS ORDERED: HALO5TAB2 PO (10:53)
[2022-11-29 10:54] VITALS: BP 116/82
[2022-11-29] MEDS ORDERED: ALBUTEROL SULFATE HFA 90 MCG/PUFF 8 GM INHALER IH ONE (11:00)
[2022-11-29 11:14] VITALS: PULSE 92; RESP 18; O2SAT 97
== END 2022-11-29 11:35 | disposition home or self-care (01) ==
LOC: EMS 10:44
DX: J45.909 Unspecified asthma, uncomplicated (principal); Z76.0 Encounter for issue of repeat prescription; F41.9 Anxiety disorder, unspecified; F32.A Depression, unspecified; F20.9 Schizophrenia, unspecified; F17.210 Nicotine dependence, cigarettes, uncomplicated; F12.90 Cannabis use, unspecified, uncomplicated; F15.90 Other stimulant use, unspecified, uncomplicated; Z98.890 Other specified postprocedural states
CPT/HCPCS: 99283; 94640; J3535

== ENCOUNTER 2022-12-01 10:46 | Emergency (ER) | payer MEDICARE, OTHER ==
[~2022-12-01] VITALS: Ht 180.3 cm; Wt 95.5 kg
[~2022-12-01 10:46] MED LIST changes: -HALO2ORA11 PO; +HALO5TAB2 PO
[2022-12-01 10:49] VITALS: BP 140/78; PULSE 92; RESP 18; TEMP 97.9
== END 2022-12-01 12:13 | disposition left against medical advice (07) ==
LOC: EMS 10:49
DX: F41.9 Anxiety disorder, unspecified (principal); F69 Unspecified disorder of adult personality and behavior; Z53.21 Procedure and treatment not carried out due to patient leaving prior to being seen by health care provider
CPT/HCPCS: 99281; Z7502

== ENCOUNTER 2022-12-05 17:34 | Emergency (ER) | payer MEDICARE, OTHER ==
[~2022-12-05] VITALS: Ht 180.3 cm; Wt 95.5 kg
[2022-12-05 17:46] VITALS: BP 104/70; PULSE 110; RESP 16; TEMP 98.3
[2022-12-05] MEDS ORDERED: ALBU18HF12 IH (18:24)
[2022-12-05] MEDS ORDERED: ALBUTEROL SULFATE HFA 90 MCG/PUFF 8 GM INHALER IH ONE (18:30)
== END 2022-12-05 18:58 | disposition home or self-care (01) ==
LOC: EMS 17:37
DX: J45.909 Unspecified asthma, uncomplicated (principal); F41.9 Anxiety disorder, unspecified; F32.A Depression, unspecified; F20.9 Schizophrenia, unspecified; F17.210 Nicotine dependence, cigarettes, uncomplicated; F12.90 Cannabis use, unspecified, uncomplicated; F15.90 Other stimulant use, unspecified, uncomplicated; F10.90 Alcohol use, unspecified, uncomplicated; Z98.890 Other specified postprocedural states; Z76.0 Encounter for issue of repeat prescription
CPT/HCPCS: 99283; 94640; J3535

== ENCOUNTER 2022-12-08 06:32 | Emergency (ER) | payer MEDICARE, OTHER | END 2022-12-08 07:38 | disposition left against medical advice (07) | LOC: EMS 06:33 | DX: Z53.21 Procedure and treatment not carried out due to patient leaving prior to being seen by health care provider (principal) ==

== ENCOUNTER 2022-12-09 12:36 | Emergency (ER) | payer MEDICARE, OTHER ==
[2022-12-10] MEDS ORDERED: HALO10TA21 PO (15:04)
[2022-12-10] MEDS ORDERED: BENZ1TAB84 PO (15:05)
[2022-12-10] MEDS ORDERED: OLAN10TA26 PO (15:06)
== END 2022-12-09 14:22 | disposition left against medical advice (07) ==
LOC: EMS 12:55
DX: Z53.21 Procedure and treatment not carried out due to patient leaving prior to being seen by health care provider (principal)
CPT/HCPCS: 99281; Z7502

== ENCOUNTER 2022-12-10 14:35 | Emergency (ER) | payer MEDICARE, OTHER ==
[~2022-12-10] VITALS: Ht 180.3 cm; Wt 90.9 kg
[2022-12-10 14:36] VITALS: BP 122/71; PULSE 93; RESP 18; TEMP 98.7
[2022-12-10] MEDS ORDERED: LORazepam 1 MG TABLET PO ONE (15:00)
[2022-12-10] MEDS ORDERED: DiphenhydrAMINE HCL 25 MG CAPSULE PO ONE (15:00)
[2022-12-10] MEDS ORDERED: HALOPERIDOL 5 MG TABLET PO ONE (15:00)
[2022-12-10] MEDS ORDERED: HALO10TA21 PO (15:04)
[2022-12-10] MEDS ORDERED: BENZ1TAB84 PO (15:05)
[2022-12-10] MEDS ORDERED: OLAN10TA26 PO (15:06)
== END 2022-12-10 15:28 | disposition home or self-care (01) ==
LOC: EMS 15:09
DX: F25.9 Schizoaffective disorder, unspecified (principal); F41.9 Anxiety disorder, unspecified; J45.909 Unspecified asthma, uncomplicated; F32.A Depression, unspecified; F17.210 Nicotine dependence, cigarettes, uncomplicated; F10.90 Alcohol use, unspecified, uncomplicated; F12.90 Cannabis use, unspecified, uncomplicated; F15.90 Other stimulant use, unspecified, uncomplicated; Z98.890 Other specified postprocedural states
CPT/HCPCS: 99284; Z7502; Z7610

== ENCOUNTER 2022-12-23 09:04 | Emergency (ER) | payer MEDICARE, OTHER ==
[~2022-12-23] VITALS: Ht 180.3 cm; Wt 95.5 kg
[~2022-12-23 09:04] MED LIST changes: +BENZ1TAB84 PO; +HALO10TA21 PO; +OLAN10TA26 PO
[2022-12-23 09:05] VITALS: BP 114/75; PULSE 102; RESP 18; TEMP 98
[2022-12-24] MEDS ORDERED: OLAN10TA22 PO (17:47)
[2022-12-24] MEDS ORDERED: HALO10TA20 PO (17:47)
== END 2022-12-23 10:54 | disposition left against medical advice (07) ==
LOC: EMS 09:10
DX: Z76.0 Encounter for issue of repeat prescription (principal); Z53.21 Procedure and treatment not carried out due to patient leaving prior to being seen by health care provider
CPT/HCPCS: 99281; Z7502

== ENCOUNTER 2022-12-24 17:31 | Emergency (ER) | payer MEDICARE, OTHER ==
[~2022-12-24] VITALS: Ht 180.3 cm; Wt 90.9 kg
[~2022-12-24 17:31] MED LIST changes: -HALO10TA21 PO; -OLAN10TA26 PO
[2022-12-24 17:32] VITALS: BP 144/78; PULSE 102; RESP 20; TEMP 98.2
[2022-12-24] MEDS ORDERED: OLANZapine 5 MG TABLET PO ONE (17:45)
[2022-12-24] MEDS ORDERED: ALBUTEROL SULFATE HFA 90 MCG/PUFF 8 GM INHALER IH ONE (17:45)
[2022-12-24] MEDS ORDERED: DiphenhydrAMINE HCL 25 MG CAPSULE PO ONE (17:45)
[2022-12-24] MEDS ORDERED: HALO10TA20 PO (17:47)
[2022-12-24] MEDS ORDERED: OLAN10TA22 PO (17:47)
== END 2022-12-24 18:06 | disposition home or self-care (01) ==
LOC: EMS 17:38
DX: F41.9 Anxiety disorder, unspecified (principal); F15.10 Other stimulant abuse, uncomplicated; J45.909 Unspecified asthma, uncomplicated; F32.A Depression, unspecified; F20.9 Schizophrenia, unspecified; F17.210 Nicotine dependence, cigarettes, uncomplicated; F10.90 Alcohol use, unspecified, uncomplicated; F12.90 Cannabis use, unspecified, uncomplicated; Z98.890 Other specified postprocedural states
CPT/HCPCS: 99283; 94640; J3535

== ENCOUNTER 2022-12-31 16:17 | Emergency (ER) | payer MEDICARE, OTHER ==
[~2022-12-31] VITALS: Ht 180.3 cm; Wt 90.9 kg
[~2022-12-31 16:17] MED LIST changes: +HALO10TA20 PO; -HALO5TAB2 PO; +OLAN10TA22 PO; -OLAN10TA74 PO
[2022-12-31 16:18] VITALS: TEMP 97.9
[2022-12-31] MEDS ORDERED: ONDANSETRON HCL 4 MG TABLET PO ONE (17:00)
[2022-12-31 17:17] LABS: BASOPHILS % (AUTO) 0.5 % (0.0-2.0); EOSINOPHILS % (AUTO) 3.9 % (1.0-6.0); HEMATOCRIT 47.9 % (41-53); HEMOGLOBIN 15.7 g/dL (13.5-17.5); LYMPHOCYTES # (AUTO) 2.3 K/uL (1.0-4.8); LYMPHOCYTES % (AUTO) 20.2 % (22.0-44.0); MEAN CORPUSCULAR HEMOGLOBIN 29.9 pg (26.0-34.0); MEAN CORPUSCULAR HGB CONC 32.8 G/dL (31.0-37.0); MEAN CORPUSCULAR VOLUME 91 fL (80-100); MONOCYTES # (AUTO) 0.7 K/uL (0.1-1.0); NEUTROPHILS # (AUTO) 7.8 K/uL (1.8-7.7); NEUTROPHILS % (AUTO) 69.4 % (40.0-70.0); PLATELET COUNT (AUTO) 315 K/uL (150-450); RED BLOOD CELL COUNT(AUTO) 5.26 MIL/uL (4.50-5.90); RED CELL DISTRIBUTION WIDTH 13.5 % (11.5-14.5)
[2022-12-31 17:27] LABS: ANION GAP 20 mmol/L (8-16); CALCIUM, TOTAL 9.4 mg/dL (8.8-10.5); CARBON DIOXIDE 26 mmol/L (22-29); CHLORIDE 102 mmol/L (98-107); CREATININE 0.97 mg/dL (0.60-1.30); GLOMERULAR FILTR. RATE CALC > 60 mL/min (>60); GLUCOSE,RANDOM 115 mg/dL (70-110); POTASSIUM 3.9 mmol/L (3.5-5.1); SODIUM SERUM 148 mmol/L (136-145)
[2022-12-31 17:33] LABS: ALANINE AMINOTRANSFERASE 38 U/L (12-78); ALBUMIN 3.7 g/dL (3.4-5.0); ALKALINE PHOSPHATASE 113 U/L (46-116); ASPARTATE AMINOTRANSFERASE 14 U/L (15-37); BILIRUBIN,TOTAL 0.2 mg/dL (0.1-1.0); LIPASE 21 U/L (16-77); TOTAL PROTEIN, SERUM 6.8 g/dL (6.4-8.2)
[2022-12-31] MEDS ORDERED: PANT-31 PO (18:06)
[2022-12-31 18:14] VITALS: BP 110/68; PULSE 88; RESP 18
== END 2022-12-31 18:39 | disposition home or self-care (01) ==
LOC: EMS 16:36
DX: K21.9 Gastro-esophageal reflux disease without esophagitis (principal); R10.84 Generalized abdominal pain; F41.9 Anxiety disorder, unspecified; J45.909 Unspecified asthma, uncomplicated; F32.A Depression, unspecified; F20.9 Schizophrenia, unspecified; F17.210 Nicotine dependence, cigarettes, uncomplicated; F12.90 Cannabis use, unspecified, uncomplicated; F15.90 Other stimulant use, unspecified, uncomplicated; Z98.890 Other specified postprocedural states
CPT/HCPCS: 99284; 80053; 83690; 84484; 85025; 36415; 93005; Q0162

== ENCOUNTER 2023-01-02 11:19 | Emergency (ER) | payer MEDICARE, OTHER ==
[~2023-01-02] VITALS: Ht 180.3 cm; Wt 95.5 kg
[~2023-01-02 11:19] MED LIST changes: +PANT-31 PO
[2023-01-02 11:24] VITALS: BP 106/70; PULSE 116; RESP 16; TEMP 97.5
[2023-01-02] MEDS ORDERED: ALBUTEROL SULFATE HFA 90 MCG/PUFF 8 GM INHALER IH ONE (12:30)
== END 2023-01-02 12:41 | disposition home or self-care (01) ==
LOC: EMS 11:25
DX: J45.909 Unspecified asthma, uncomplicated (principal); F41.9 Anxiety disorder, unspecified; F32.A Depression, unspecified; F20.9 Schizophrenia, unspecified; F17.210 Nicotine dependence, cigarettes, uncomplicated; F10.90 Alcohol use, unspecified, uncomplicated; F12.90 Cannabis use, unspecified, uncomplicated; F15.90 Other stimulant use, unspecified, uncomplicated; Z76.0 Encounter for issue of repeat prescription; Z98.890 Other specified postprocedural states
CPT/HCPCS: 99283; 94640; J3535

== ENCOUNTER 2023-01-05 16:23 | Emergency (ER) | payer MEDICARE, OTHER ==
[~2023-01-05] VITALS: Ht 182.9 cm; Wt 90.9 kg
[2023-01-05 16:25] VITALS: TEMP 97.9
[2023-01-05 16:53] VITALS: BP 129/88; PULSE 93; RESP 18
[2023-01-05] MEDS ORDERED: HydrOXYzine PAMOATE 50 MG CAPSULE PO ONE (17:00)
== END 2023-01-05 17:34 | disposition home or self-care (01) ==
LOC: EMS 16:23
DX: F41.9 Anxiety disorder, unspecified (principal); F15.10 Other stimulant abuse, uncomplicated; J45.909 Unspecified asthma, uncomplicated; F32.A Depression, unspecified; F20.9 Schizophrenia, unspecified; F12.90 Cannabis use, unspecified, uncomplicated; F17.210 Nicotine dependence, cigarettes, uncomplicated
CPT/HCPCS: 99283

== ENCOUNTER 2023-01-07 19:01 | Emergency (ER) | payer MEDICARE, OTHER | END 2023-01-07 19:44 | disposition left against medical advice (07) | LOC: EMS 19:02 | DX: Z53.21 Procedure and treatment not carried out due to patient leaving prior to being seen by health care provider (principal) ==

== ENCOUNTER 2023-01-09 20:48 | Emergency (ER) | payer MEDICARE, OTHER ==
[~2023-01-09] VITALS: Ht 180.3 cm; Wt 95.0 kg
[2023-01-09 20:50] VITALS: BP 128/82; PULSE 85; RESP 18; TEMP 98.7
== END 2023-01-09 21:36 | disposition left against medical advice (07) ==
LOC: EMS 20:49
DX: Z53.21 Procedure and treatment not carried out due to patient leaving prior to being seen by health care provider (principal)
CPT/HCPCS: 99281; Z7502

== ENCOUNTER 2023-01-10 18:37 | Emergency (ER) | payer MEDICARE, OTHER ==
[~2023-01-10] VITALS: Ht 180.3 cm; Wt 92.0 kg
[2023-01-10 18:46] VITALS: TEMP 98.4
[2023-01-10] MEDS ORDERED: OLANZapine 5 MG TABLET PO ONE (19:00)
[2023-01-10] MEDS ORDERED: HALOPERIDOL 5 MG TABLET PO ONE (19:00)
[2023-01-10 19:15] VITALS: BP 127/85; PULSE 98; RESP 16
== END 2023-01-10 19:40 | disposition home or self-care (01) ==
LOC: EMS 18:38
DX: F43.20 Adjustment disorder, unspecified (principal); F41.9 Anxiety disorder, unspecified; F15.10 Other stimulant abuse, uncomplicated; F31.9 Bipolar disorder, unspecified; J45.909 Unspecified asthma, uncomplicated; F20.9 Schizophrenia, unspecified; F12.90 Cannabis use, unspecified, uncomplicated; F17.210 Nicotine dependence, cigarettes, uncomplicated; F10.90 Alcohol use, unspecified, uncomplicated; Z98.890 Other specified postprocedural states
CPT/HCPCS: 99283

== ENCOUNTER 2023-01-12 11:10 | Emergency (ER) | payer MEDICARE, OTHER ==
[~2023-01-12] VITALS: Ht 180.3 cm; Wt 97.7 kg
[~2023-01-12 11:10] MED LIST changes: -BENZ1TAB84 PO
[2023-01-12 11:51] VITALS: BP 126/97; PULSE 104; RESP 18; TEMP 98.2
[2023-01-12] MEDS ORDERED: HALO10TA21 PO (12:05)
[2023-01-12] MEDS ORDERED: LORazepam 1 MG TABLET PO ONE (12:15)
[2023-01-12] MEDS ORDERED: HALOPERIDOL 5 MG TABLET PO ONE (12:15)
[2023-01-12] MEDS ORDERED: DiphenhydrAMINE HCL 25 MG CAPSULE PO ONE (12:15)
== END 2023-01-12 13:03 | disposition home or self-care (01) ==
LOC: EMS 11:12
DX: F25.9 Schizoaffective disorder, unspecified (principal); F41.9 Anxiety disorder, unspecified; J45.909 Unspecified asthma, uncomplicated; F32.A Depression, unspecified; F17.210 Nicotine dependence, cigarettes, uncomplicated; F10.90 Alcohol use, unspecified, uncomplicated; F12.90 Cannabis use, unspecified, uncomplicated; F15.90 Other stimulant use, unspecified, uncomplicated; Z98.890 Other specified postprocedural states
CPT/HCPCS: 99284; Z7502; Z7610

== ENCOUNTER 2023-01-17 18:41 | Emergency (ER) | payer MEDICARE, OTHER ==
[~2023-01-17 18:41] MED LIST changes: +HALO10TA21 PO
== END 2023-01-17 20:34 | disposition left against medical advice (07) ==
LOC: EMS 18:55
DX: Z53.21 Procedure and treatment not carried out due to patient leaving prior to being seen by health care provider (principal)
CPT/HCPCS: 99281; Z7502

== ENCOUNTER 2023-01-27 09:22 | Emergency (ER) | payer MEDICARE, OTHER ==
[~2023-01-27] VITALS: Ht 180.3 cm; Wt 95.5 kg
[2023-01-27 09:23] VITALS: BP 105/67; PULSE 74; RESP 18; TEMP 97.9
== END 2023-01-27 12:46 | disposition left against medical advice (07) ==
LOC: EMS 09:24
DX: R11.2 Nausea with vomiting, unspecified (principal); Z53.21 Procedure and treatment not carried out due to patient leaving prior to being seen by health care provider
CPT/HCPCS: 99281; Z7502

== ENCOUNTER 2023-01-27 13:01 | Emergency (ER) | payer MEDICARE, OTHER ==
[~2023-01-27] VITALS: Ht 180.3 cm; Wt 95.5 kg
[2023-01-27 13:06] VITALS: BP 134/84; PULSE 82; RESP 18; TEMP 98.3
[2023-01-27] MEDS ORDERED: HydrOXYzine HCL 25 MG TABLET PO ONE (13:30)
== END 2023-01-27 14:01 | disposition home or self-care (01) ==
LOC: EMS 13:01
DX: F41.9 Anxiety disorder, unspecified (principal); F15.90 Other stimulant use, unspecified, uncomplicated; J45.909 Unspecified asthma, uncomplicated; F32.A Depression, unspecified; F20.9 Schizophrenia, unspecified; F17.210 Nicotine dependence, cigarettes, uncomplicated; F12.90 Cannabis use, unspecified, uncomplicated
CPT/HCPCS: 99283

== ENCOUNTER 2023-02-07 12:40 | Emergency (ER) | payer MEDICARE, OTHER ==
[~2023-02-07] VITALS: Ht 180.3 cm; Wt 93.2 kg
[2023-02-07 13:15] VITALS: TEMP 98.2
[2023-02-07] MEDS ORDERED: DiphenhydrAMINE HCL 25 MG CAPSULE PO ONE (13:45)
[2023-02-07] MEDS ORDERED: LORazepam 1 MG TABLET PO ONE (13:45)
[2023-02-07] MEDS ORDERED: HALOPERIDOL 5 MG TABLET PO ONE (13:45)
[2023-02-07 15:15] VITALS: BP 111/64; PULSE 84; RESP 16
== END 2023-02-07 15:50 | disposition home or self-care (01) ==
LOC: EMS 13:06
DX: F20.9 Schizophrenia, unspecified (principal); F41.9 Anxiety disorder, unspecified; J45.909 Unspecified asthma, uncomplicated; F32.A Depression, unspecified; F17.210 Nicotine dependence, cigarettes, uncomplicated; F12.90 Cannabis use, unspecified, uncomplicated; F15.90 Other stimulant use, unspecified, uncomplicated; F10.90 Alcohol use, unspecified, uncomplicated; Z98.890 Other specified postprocedural states; Y90.9 Presence of alcohol in blood, level not specified
CPT/HCPCS: 99284; Z7502; Z7610

== ENCOUNTER 2023-02-17 12:36 | Emergency (ER) | payer MEDICARE, OTHER ==
[~2023-02-17] VITALS: Ht 180.3 cm; Wt 95.5 kg
[2023-02-17 12:40] VITALS: BP 134/84; PULSE 88; RESP 16; TEMP 98
[2023-02-17] MEDS ORDERED: HALOPERIDOL LACTATE 5 MG/ML VIAL IM ONE (14:15)
[2023-02-17] MEDS ORDERED: LORazepam 2 MG/ML VIAL IM ONE (14:15)
== END 2023-02-17 15:04 | disposition home or self-care (01) ==
LOC: EMS 12:45
DX: F31.9 Bipolar disorder, unspecified (principal); F15.90 Other stimulant use, unspecified, uncomplicated; J45.909 Unspecified asthma, uncomplicated; F41.9 Anxiety disorder, unspecified; F20.9 Schizophrenia, unspecified; F12.90 Cannabis use, unspecified, uncomplicated; F17.210 Nicotine dependence, cigarettes, uncomplicated; Z79.899 Other long term (current) drug therapy
CPT/HCPCS: 99284; 96372; J1630; J2060

== ENCOUNTER 2023-02-19 10:23 | Emergency (ER) | payer MEDICARE, OTHER | END 2023-02-19 13:55 | disposition left against medical advice (07) | LOC: EMS 10:24 | DX: Z53.21 Procedure and treatment not carried out due to patient leaving prior to being seen by health care provider (principal) ==

== ENCOUNTER 2023-02-20 20:22 | Emergency (ER) | payer MEDICARE, OTHER ==
[~2023-02-20] VITALS: Ht 180.3 cm; Wt 90.9 kg
[2023-02-20 21:18] VITALS: BP 131/80; PULSE 110; RESP 18; TEMP 97.9
== END 2023-02-20 22:19 | disposition left against medical advice (07) ==
LOC: EMS 20:23
DX: F42.9 Obsessive-compulsive disorder, unspecified (principal); Z53.21 Procedure and treatment not carried out due to patient leaving prior to being seen by health care provider
CPT/HCPCS: 99281; Z7502

== ENCOUNTER 2023-02-21 10:24 | Emergency (ER) | payer MEDICARE, OTHER ==
[~2023-02-21] VITALS: Ht 180.3 cm; Wt 93.2 kg
[2023-02-21 10:26] VITALS: BP 135/88; PULSE 89; RESP 16; TEMP 98
[2023-02-21] MEDS ORDERED: DiphenhydrAMINE HCL 25 MG CAPSULE PO ONE (10:45)
[2023-02-21] MEDS ORDERED: LORazepam 1 MG TABLET PO ONE (10:45)
[2023-02-21] MEDS ORDERED: HALOPERIDOL 5 MG TABLET PO ONE (10:45)
== END 2023-02-21 12:29 | disposition home or self-care (01) ==
LOC: EMS 10:24
DX: F41.9 Anxiety disorder, unspecified (principal); F20.9 Schizophrenia, unspecified; F31.9 Bipolar disorder, unspecified; F17.210 Nicotine dependence, cigarettes, uncomplicated; F12.90 Cannabis use, unspecified, uncomplicated; F15.90 Other stimulant use, unspecified, uncomplicated; F10.90 Alcohol use, unspecified, uncomplicated; Z98.890 Other specified postprocedural states; Y90.9 Presence of alcohol in blood, level not specified
CPT/HCPCS: 99284; Z7502; Z7610

== ENCOUNTER 2023-02-28 20:33 | Emergency (ER) | payer MEDICARE, OTHER ==
[~2023-02-28] VITALS: Ht 180.3 cm; Wt 90.0 kg
[2023-02-28 20:37] VITALS: BP 135/87; PULSE 121; RESP 20; TEMP 98.4
== END 2023-02-28 21:43 | disposition left against medical advice (07) ==
LOC: EMS 20:35
DX: F15.90 Other stimulant use, unspecified, uncomplicated (principal); Z53.21 Procedure and treatment not carried out due to patient leaving prior to being seen by health care provider
CPT/HCPCS: 99281; Z7502

== ENCOUNTER 2023-03-05 18:56 | Emergency (ER) | payer MEDICARE, OTHER ==
[~2023-03-05] VITALS: Ht 180.3 cm; Wt 90.0 kg
[2023-03-05 19:11] VITALS: BP 135/84; PULSE 113; RESP 22; TEMP 98.3
[2023-03-05] MEDS ORDERED: OLANZapine 5 MG RAPDIS TABLET PO ONE (19:30)
[2023-03-06] MEDS ORDERED: HALO10TA21 PO (08:58)
== END 2023-03-05 20:26 | disposition home or self-care (01) ==
LOC: EMS 18:57
DX: F41.9 Anxiety disorder, unspecified (principal); F20.9 Schizophrenia, unspecified; F15.10 Other stimulant abuse, uncomplicated; F31.9 Bipolar disorder, unspecified; F17.210 Nicotine dependence, cigarettes, uncomplicated; F12.90 Cannabis use, unspecified, uncomplicated; F10.90 Alcohol use, unspecified, uncomplicated; Z98.890 Other specified postprocedural states; Y90.9 Presence of alcohol in blood, level not specified
CPT/HCPCS: 99283; 99284

== ENCOUNTER 2023-03-06 07:23 | Emergency (ER) | payer MEDICARE, OTHER ==
[~2023-03-06] VITALS: Ht 180.3 cm; Wt 90.9 kg
[2023-03-06 07:26] VITALS: TEMP 98.4
[2023-03-06] MEDS ORDERED: HALOPERIDOL 5 MG TABLET PO ONE (08:00)
[2023-03-06] MEDS ORDERED: HydrOXYzine PAMOATE 50 MG CAPSULE PO ONE (08:00)
[2023-03-06 08:51] VITALS: BP 126/74; PULSE 91; RESP 18
[2023-03-06] MEDS ORDERED: HALO10TA21 PO (08:58)
[2023-03-07] MEDS ORDERED: OLAN10TA22 PO (14:58)
== END 2023-03-06 09:20 | disposition home or self-care (01) ==
LOC: EMS 07:28
DX: F15.151 Other stimulant abuse with stimulant-induced psychotic disorder with hallucinations (principal); F31.9 Bipolar disorder, unspecified; F20.9 Schizophrenia, unspecified; F12.90 Cannabis use, unspecified, uncomplicated; F17.210 Nicotine dependence, cigarettes, uncomplicated; F10.90 Alcohol use, unspecified, uncomplicated; Z98.890 Other specified postprocedural states; Y90.9 Presence of alcohol in blood, level not specified
CPT/HCPCS: 99283

== ENCOUNTER 2023-03-07 14:22 | Emergency (ER) | payer MEDICARE, OTHER ==
[~2023-03-07] VITALS: Ht 180.3 cm; Wt 93.2 kg
[2023-03-07 14:23] VITALS: TEMP 98
[2023-03-07 14:32] VITALS: BP 146/68
[2023-03-07] MEDS ORDERED: OLAN10TA22 PO (14:58)
[2023-03-07] MEDS ORDERED: ALBUTEROL SULFATE HFA 90 MCG/PUFF 8 GM INHALER IH ONE (15:00)
[2023-03-07] MEDS ORDERED: HALOPERIDOL 5 MG TABLET PO ONE (15:00)
[2023-03-07 15:01] VITALS: PULSE 107; RESP 20; O2SAT 100
== END 2023-03-07 15:52 | disposition home or self-care (01) ==
LOC: EMS 14:22
DX: F41.9 Anxiety disorder, unspecified (principal); F15.10 Other stimulant abuse, uncomplicated; F20.9 Schizophrenia, unspecified; J45.909 Unspecified asthma, uncomplicated; F31.9 Bipolar disorder, unspecified; F17.210 Nicotine dependence, cigarettes, uncomplicated; F12.90 Cannabis use, unspecified, uncomplicated; Z98.890 Other specified postprocedural states
CPT/HCPCS: 99283; 94640; J3535; 99284

== ENCOUNTER 2023-03-11 13:32 | Emergency (ER) | payer MEDICARE, OTHER ==
[~2023-03-11] VITALS: Ht 180.3 cm; Wt 90.9 kg
[2023-03-11 13:33] VITALS: BP 110/70; PULSE 122; RESP 20; TEMP 98.6
[2023-03-11] MEDS ORDERED: HYDR-4808 PO (14:28)
[2023-03-11] MEDS ORDERED: HALOPERIDOL 5 MG TABLET PO ONE (14:30)
== END 2023-03-11 15:58 | disposition home or self-care (01) ==
LOC: EMS 13:53
DX: F25.0 Schizoaffective disorder, bipolar type (principal); F41.9 Anxiety disorder, unspecified; F31.9 Bipolar disorder, unspecified; F17.210 Nicotine dependence, cigarettes, uncomplicated; F15.90 Other stimulant use, unspecified, uncomplicated; F12.90 Cannabis use, unspecified, uncomplicated; F10.90 Alcohol use, unspecified, uncomplicated; Z98.890 Other specified postprocedural states
CPT/HCPCS: 99283

== ENCOUNTER 2023-03-15 12:46 | Emergency (ER) | payer MEDICARE, OTHER ==
[~2023-03-15] VITALS: Ht 180.3 cm; Wt 90.9 kg
[~2023-03-15 12:46] MED LIST changes: -HALO10TA21 PO; +HYDR-4808 PO; -PANT-31 PO
[2023-03-15 12:47] VITALS: TEMP 98
[2023-03-15] MEDS ORDERED: LORazepam 1 MG TABLET PO ONE (14:15)
[2023-03-15 14:55] VITALS: BP 117/75; PULSE 85; RESP 18
[2023-03-15] MEDS ORDERED: HYDR-4808 PO (14:57)
== END 2023-03-15 15:38 | disposition home or self-care (01) ==
LOC: EMS 12:49
DX: F41.9 Anxiety disorder, unspecified (principal); F31.9 Bipolar disorder, unspecified; F20.9 Schizophrenia, unspecified; F17.210 Nicotine dependence, cigarettes, uncomplicated; F15.90 Other stimulant use, unspecified, uncomplicated; F12.90 Cannabis use, unspecified, uncomplicated; F10.90 Alcohol use, unspecified, uncomplicated; Z98.890 Other specified postprocedural states; Y90.9 Presence of alcohol in blood, level not specified
CPT/HCPCS: 99283

== ENCOUNTER 2023-03-16 16:30 | Emergency (ER) | payer MEDICARE, OTHER ==
[~2023-03-16] VITALS: Ht 180.3 cm; Wt 90.9 kg
[2023-03-16 16:31] VITALS: TEMP 98
[2023-03-16] MEDS ORDERED: HALOPERIDOL 5 MG TABLET PO ONE (17:30)
[2023-03-16 18:37] VITALS: BP 108/64; PULSE 88; RESP 16
== END 2023-03-16 18:38 | disposition home or self-care (01) ==
LOC: EMS 16:31
DX: F41.9 Anxiety disorder, unspecified (principal); J45.909 Unspecified asthma, uncomplicated; F31.9 Bipolar disorder, unspecified; F25.9 Schizoaffective disorder, unspecified; F17.210 Nicotine dependence, cigarettes, uncomplicated; F15.90 Other stimulant use, unspecified, uncomplicated
CPT/HCPCS: 99282; Z7502; Z7610

== ENCOUNTER 2023-03-25 16:25 | Emergency (ER) | payer MEDICARE, OTHER ==
[~2023-03-25] VITALS: Ht 180.3 cm; Wt 90.9 kg
[2023-03-25 16:59] VITALS: TEMP 97.7
[2023-03-25] MEDS ORDERED: OLANZapine 5 MG TABLET PO ONE (19:30)
[2023-03-25 21:50] VITALS: BP 121/62; PULSE 89; RESP 19
== END 2023-03-25 22:37 | disposition home or self-care (01) ==
LOC: EMS 16:26
DX: F25.9 Schizoaffective disorder, unspecified (principal); F15.10 Other stimulant abuse, uncomplicated; J45.909 Unspecified asthma, uncomplicated; F31.9 Bipolar disorder, unspecified; F17.210 Nicotine dependence, cigarettes, uncomplicated
CPT/HCPCS: 99283

== ENCOUNTER 2023-04-07 10:29 | Emergency (ER) | payer MEDICARE, OTHER ==
[~2023-04-07] VITALS: Ht 180.3 cm; Wt 91.0 kg
[2023-04-07 10:33] VITALS: BP 124/73; PULSE 111; RESP 16; TEMP 98.3
[2023-04-07] MEDS ORDERED: ALBUTEROL SULFATE HFA 90 MCG/PUFF 8 GM INHALER IH ONE (10:45)
[2023-04-07] MEDS ORDERED: ALBUTEROL SULFATE/IPRATROPIUM 100-20 MCG/SPRAY 4 GM INHALER IH ONE (10:45)
[2023-04-07] MEDS ORDERED: IPRATROPIUM BROMIDE HFA 17 MCG/PUFF 12.9 GM INHALER IH ONE (10:45)
== END 2023-04-07 10:40 | disposition home or self-care (01) ==
LOC: EMS 10:29
DX: J45.901 Unspecified asthma with (acute) exacerbation (principal); F15.10 Other stimulant abuse, uncomplicated; F25.0 Schizoaffective disorder, bipolar type; F17.210 Nicotine dependence, cigarettes, uncomplicated; Z98.890 Other specified postprocedural states; Z91.148 Patient's other noncompliance with medication regimen for other reason
CPT/HCPCS: 99283; 94640; J3535

== ENCOUNTER 2023-04-12 15:33 | Emergency (ER) | payer MEDICARE, OTHER ==
[~2023-04-12] VITALS: Ht 180.3 cm; Wt 91.0 kg
[2023-04-12 15:54] VITALS: BP 143/83; PULSE 101; RESP 16; TEMP 98.3
[2023-04-16] MEDS ORDERED: ALBU18HF12 IH (16:13)
== END 2023-04-12 19:00 | disposition left against medical advice (07) ==
LOC: EMS 15:35
DX: F25.0 Schizoaffective disorder, bipolar type (principal); F15.10 Other stimulant abuse, uncomplicated; F17.200 Nicotine dependence, unspecified, uncomplicated; Z98.890 Other specified postprocedural states
CPT/HCPCS: 99283; Z7502

== ENCOUNTER → 2023-04-16 | Emergency (ER) | payer MEDICARE, OTHER ==
[~2023-04-16] VITALS: Ht 180.3 cm; Wt 90.9 kg
[2023-04-16 14:52] VITALS: TEMP 98
[2023-04-16 15:01] LABS: BASOPHILS % (AUTO) 1.2 % (0.0-2.0); EOSINOPHILS % (AUTO) 3.5 % (1.0-6.0); HEMATOCRIT 42.9 % (41-53); HEMOGLOBIN 14.6 g/dL (13.5-17.5); LYMPHOCYTES # (AUTO) 2.7 K/uL (1.0-4.8); LYMPHOCYTES % (AUTO) 23.5 % (22.0-44.0); MEAN CORPUSCULAR HEMOGLOBIN 30.7 pg (26.0-34.0); MEAN CORPUSCULAR VOLUME 90 fL (80-100); MONOCYTES # (AUTO) 0.8 K/uL (0.1-1.0); MONOCYTES % (AUTO) 7.2 % (2.0-9.0); NEUTROPHILS # (AUTO) 7.5 K/uL (1.8-7.7); NEUTROPHILS % (AUTO) 64.6 % (40.0-70.0); PLATELET COUNT (AUTO) 313 K/uL (150-450); RED BLOOD CELL COUNT(AUTO) 4.75 MIL/uL (4.50-5.90); RED CELL DISTRIBUTION WIDTH 13.1 % (11.5-14.5); WHITE BLOOD COUNT (AUTO) 11.6 K/uL (4.5-11.0)
[2023-04-16 15:15] LABS: ANION GAP 10 mmol/L (8-16); CALCIUM, TOTAL 8.5 mg/dL (8.8-10.5); CARBON DIOXIDE 26 mmol/L (22-29); CHLORIDE 103 mmol/L (98-107); CREATININE 1.09 mg/dL (0.60-1.30); GLOMERULAR FILTR. RATE CALC > 60 mL/min (>60); GLUCOSE,RANDOM 94 mg/dL (70-110); POTASSIUM 3.6 mmol/L (3.5-5.1); SODIUM SERUM 139 mmol/L (136-145); UREA NITROGEN, BLOOD 9 mg/dL (7-18)
[2023-04-16 15:25] LABS: ALCOHOL, BLOOD (SERUM) < 3 mg/dL (0-10)
[2023-04-16 15:26] LABS: ALANINE AMINOTRANSFERASE 25 U/L (12-78); ALBUMIN 3.8 g/dL (3.4-5.0); ALKALINE PHOSPHATASE 96 U/L (46-116); ASPARTATE AMINOTRANSFERASE 14 U/L (15-37); BILIRUBIN,TOTAL 0.4 mg/dL (0.1-1.0)
[2023-04-16 15:28] LABS: TROPONIN I-HIGH SENSITIVITY 5 ng/L (<76)
[2023-04-16 16:30] VITALS: BP 127/74; PULSE 89; RESP 16
== END | disposition still patient (30) ==
LOC: EMS 14:16
DX: F41.9 Anxiety disorder, unspecified (principal); F15.10 Other stimulant abuse, uncomplicated; F25.0 Schizoaffective disorder, bipolar type; J45.909 Unspecified asthma, uncomplicated; F17.210 Nicotine dependence, cigarettes, uncomplicated; Z98.890 Other specified postprocedural states
CPT/HCPCS: 99285; 71045; 80053; 84484; 85025; 36415; 93005; G0480

== ENCOUNTER 2023-04-22 07:01 | Emergency (ER) | payer MEDICARE, OTHER ==
[~2023-04-22] VITALS: Ht 180.3 cm; Wt 93.2 kg
[2023-04-22 07:23] VITALS: TEMP 98.7
[2023-04-22] MEDS ORDERED: OLANZapine 5 MG TABLET PO ONE (07:30)
[2023-04-22] MEDS ORDERED: HALOPERIDOL 5 MG TABLET PO ONE (07:30)
[2023-04-22 09:29] VITALS: BP 109/72; PULSE 95; RESP 16
[2023-04-22] MEDS ORDERED: OLAN10TA74 PO (10:05)
[2023-04-22] MEDS ORDERED: HALO5TAB23 PO (10:05)
== END 2023-04-22 10:13 | disposition home or self-care (01) ==
LOC: EMS 07:05
DX: F20.9 Schizophrenia, unspecified (principal); F15.90 Other stimulant use, unspecified, uncomplicated; J45.909 Unspecified asthma, uncomplicated; F31.9 Bipolar disorder, unspecified; F17.210 Nicotine dependence, cigarettes, uncomplicated
CPT/HCPCS: 99283

== ENCOUNTER 2023-05-03 11:04 | Emergency (ER) | payer MEDICARE, OTHER ==
[~2023-05-03] VITALS: Ht 180.3 cm; Wt 95.5 kg
[~2023-05-03 11:04] MED LIST changes: -HALO10TA20 PO; +HALO5TAB23 PO; -HYDR-4808 PO; +OLAN10TA74 PO
[2023-05-03 11:19] VITALS: BP 104/70; PULSE 104; RESP 18
[2023-05-03] MEDS ORDERED: ALBUTEROL SULFATE HFA 90 MCG/PUFF 8 GM INHALER IH ONE (13:00)
== END 2023-05-03 13:30 | disposition home or self-care (01) ==
LOC: EMS 11:04
DX: J45.901 Unspecified asthma with (acute) exacerbation (principal); F31.9 Bipolar disorder, unspecified; F20.9 Schizophrenia, unspecified; F17.210 Nicotine dependence, cigarettes, uncomplicated; F15.90 Other stimulant use, unspecified, uncomplicated
CPT/HCPCS: 99283; 94640; J3535

== ENCOUNTER 2023-05-25 20:28 | Emergency (ER) | payer MEDICARE, OTHER ==
[~2023-05-25] VITALS: Ht 180.3 cm; Wt 90.9 kg
[2023-05-25 20:44] VITALS: BP 118/77; PULSE 77; RESP 18; TEMP 98.3
[2023-05-25] MEDS ORDERED: HALOPERIDOL 5 MG TABLET PO ONE (21:45)
[2023-05-25] MEDS ORDERED: DiphenhydrAMINE HCL 25 MG CAPSULE PO ONE (21:45)
== END 2023-05-25 22:35 | disposition home or self-care (01) ==
LOC: EMS 20:29
DX: F41.9 Anxiety disorder, unspecified (principal); F15.90 Other stimulant use, unspecified, uncomplicated; F25.9 Schizoaffective disorder, unspecified; J45.909 Unspecified asthma, uncomplicated; F31.9 Bipolar disorder, unspecified; F17.210 Nicotine dependence, cigarettes, uncomplicated; Z98.890 Other specified postprocedural states
CPT/HCPCS: 99284; Z7502; Z7610

== ENCOUNTER 2023-06-03 09:39 | Emergency (ER) | payer MEDICARE, OTHER ==
[~2023-06-03] VITALS: Ht 180.3 cm; Wt 90.9 kg
[~2023-06-03 09:39] MED LIST changes: -OLAN10TA74 PO
[2023-06-03] MEDS ORDERED: ALBU18HF12 IH (10:29)
[2023-06-03 10:30] VITALS: BP 128/68; PULSE 91; RESP 22; TEMP 98.7
[2023-06-03] MEDS ORDERED: HALOPERIDOL 5 MG TABLET PO ONE (11:00)
[2023-06-04] MEDS ORDERED: OLAN10TA22 PO (16:39)
== END 2023-06-03 11:01 | disposition home or self-care (01) ==
LOC: EMS 10:14
DX: J45.901 Unspecified asthma with (acute) exacerbation (principal); F41.9 Anxiety disorder, unspecified; F15.10 Other stimulant abuse, uncomplicated; F25.0 Schizoaffective disorder, bipolar type; F17.210 Nicotine dependence, cigarettes, uncomplicated; Z98.890 Other specified postprocedural states
CPT/HCPCS: 99283

== ENCOUNTER 2023-06-04 15:36 | Emergency (ER) | payer MEDICARE, OTHER ==
[~2023-06-04] VITALS: Ht 180.3 cm; Wt 90.9 kg
[2023-06-04] MEDS ORDERED: DiphenhydrAMINE HCL 50 MG CAPSULE PO ONE (16:15)
[2023-06-04] MEDS ORDERED: HALOPERIDOL 5 MG TABLET PO ONE (16:15)
[2023-06-04 16:38] VITALS: BP 139/89; PULSE 108; RESP 20; TEMP 98.3
[2023-06-04] MEDS ORDERED: OLAN10TA22 PO (16:39)
== END 2023-06-04 17:03 | disposition home or self-care (01) ==
LOC: EMS 15:38
DX: F41.9 Anxiety disorder, unspecified (principal); F20.9 Schizophrenia, unspecified; F15.10 Other stimulant abuse, uncomplicated; J45.909 Unspecified asthma, uncomplicated; F31.9 Bipolar disorder, unspecified; F17.210 Nicotine dependence, cigarettes, uncomplicated; Z76.0 Encounter for issue of repeat prescription
CPT/HCPCS: 99283

== ENCOUNTER 2023-06-06 22:46 | Emergency (ER) | payer MEDICARE, OTHER | END 2023-06-06 23:26 | disposition left against medical advice (07) | LOC: EMS 22:47 | DX: Z53.21 Procedure and treatment not carried out due to patient leaving prior to being seen by health care provider (principal) ==

== ENCOUNTER 2023-06-08 09:37 | Emergency (ER) | payer MEDICARE, OTHER ==
[~2023-06-08] VITALS: Ht 180.3 cm; Wt 91.0 kg
[2023-06-08 09:45] VITALS: TEMP 98.3
[2023-06-08] MEDS ORDERED: HALOPERIDOL 5 MG TABLET PO ONE (10:45)
[2023-06-08 11:11] VITALS: BP 132/79; PULSE 98; RESP 18
== END 2023-06-08 11:12 | disposition home or self-care (01) ==
LOC: EMS 09:37
DX: F41.9 Anxiety disorder, unspecified (principal); F15.10 Other stimulant abuse, uncomplicated; J45.909 Unspecified asthma, uncomplicated; F31.9 Bipolar disorder, unspecified; F20.9 Schizophrenia, unspecified; F17.210 Nicotine dependence, cigarettes, uncomplicated; Z98.890 Other specified postprocedural states
CPT/HCPCS: 99283

== ENCOUNTER 2023-06-09 11:40 | Emergency (ER) | payer MEDICARE, OTHER ==
[~2023-06-09] VITALS: Ht 180.3 cm; Wt 90.9 kg
[2023-06-09 11:48] VITALS: BP 141/86; PULSE 74; RESP 18; TEMP 98
== END 2023-06-09 14:16 | disposition left against medical advice (07) ==
LOC: EMS 11:40
DX: R45.89 Other symptoms and signs involving emotional state (principal); Z53.21 Procedure and treatment not carried out due to patient leaving prior to being seen by health care provider
CPT/HCPCS: 99281; Z7502

== ENCOUNTER 2023-06-09 15:22 | Emergency (ER) | payer MEDICARE, OTHER ==
[~2023-06-09] VITALS: Ht 180.3 cm; Wt 90.9 kg
[2023-06-09 15:31] VITALS: BP 145/88; PULSE 85; RESP 18; TEMP 98
== END 2023-06-09 18:30 | disposition left against medical advice (07) ==
LOC: EMS 15:24
DX: R44.1 Visual hallucinations (principal); Z53.21 Procedure and treatment not carried out due to patient leaving prior to being seen by health care provider
CPT/HCPCS: 99281; Z7502

== ENCOUNTER 2023-06-12 18:26 | Emergency (ER) | payer MEDICARE, OTHER ==
[~2023-06-12] VITALS: Ht 180.3 cm; Wt 90.9 kg
[2023-06-12 18:32] VITALS: BP 125/69; PULSE 80; RESP 18; TEMP 98.3
[2023-06-21] MEDS ORDERED: OLAN10TA74 PO (09:50)
== END 2023-06-12 21:16 | disposition left against medical advice (07) ==
LOC: EMS 18:28
DX: R45.89 Other symptoms and signs involving emotional state (principal); Z53.21 Procedure and treatment not carried out due to patient leaving prior to being seen by health care provider
CPT/HCPCS: 99281; Z7502

== ENCOUNTER 2023-06-13 09:47 | Emergency (ER) | payer MEDICARE, OTHER ==
[~2023-06-13] VITALS: Ht 180.3 cm; Wt 96.0 kg
[2023-06-13 09:50] VITALS: BP 142/92; PULSE 100; RESP 18; TEMP 98
[2023-06-13] MEDS ORDERED: HALOPERIDOL 5 MG TABLET PO ONE (10:30)
== END 2023-06-13 11:09 | disposition home or self-care (01) ==
LOC: EMS 09:47
DX: F20.9 Schizophrenia, unspecified (principal); J45.909 Unspecified asthma, uncomplicated; F31.9 Bipolar disorder, unspecified; F17.210 Nicotine dependence, cigarettes, uncomplicated; F15.90 Other stimulant use, unspecified, uncomplicated; Z98.890 Other specified postprocedural states
CPT/HCPCS: 99284; Z7502; Z7610

== ENCOUNTER 2023-06-16 17:17 | Emergency (ER) | payer MEDICARE, OTHER ==
[~2023-06-16] VITALS: Ht 180.3 cm; Wt 91.0 kg
[2023-06-16 17:38] VITALS: BP 102/66; PULSE 100; RESP 16; TEMP 98.3
== END 2023-06-16 20:24 | disposition left against medical advice (07) ==
LOC: EMS 17:26
DX: R45.89 Other symptoms and signs involving emotional state (principal); Z53.21 Procedure and treatment not carried out due to patient leaving prior to being seen by health care provider
CPT/HCPCS: 99281; Z7502

== ENCOUNTER 2023-06-17 15:37 | Emergency (ER) | payer MEDICARE, OTHER ==
[~2023-06-17] VITALS: Ht 180.3 cm; Wt 86.4 kg
[2023-06-17 15:38] VITALS: BP 118/89; PULSE 112; RESP 20; TEMP 98.2
[2023-06-21] MEDS ORDERED: OLAN10TA74 PO (09:50)
== END 2023-06-17 16:20 | disposition left against medical advice (07) ==
LOC: EMS 15:38
DX: F15.90 Other stimulant use, unspecified, uncomplicated (principal); Z76.0 Encounter for issue of repeat prescription; Z53.21 Procedure and treatment not carried out due to patient leaving prior to being seen by health care provider
CPT/HCPCS: 99281; Z7502

== ENCOUNTER 2023-06-17 18:26 | Emergency (ER) | payer MEDICARE, OTHER ==
[~2023-06-17] VITALS: Ht 180.3 cm; Wt 86.4 kg
[2023-06-17 18:29] VITALS: BP 135/97; PULSE 104; RESP 20; TEMP 98
[2023-06-21] MEDS ORDERED: OLAN10TA74 PO (09:50)
== END 2023-06-17 20:45 | disposition left against medical advice (07) ==
LOC: EMS 18:51
DX: F15.90 Other stimulant use, unspecified, uncomplicated (principal); Z76.0 Encounter for issue of repeat prescription; Z53.21 Procedure and treatment not carried out due to patient leaving prior to being seen by health care provider
CPT/HCPCS: 99281; Z7502

== ENCOUNTER 2023-06-18 17:56 | Emergency (ER) | payer MEDICARE, OTHER ==
[~2023-06-18] VITALS: Ht 170.2 cm; Wt 77.3 kg
[2023-06-18 18:34] VITALS: BP 132/101; PULSE 109; RESP 18; TEMP 97.8
[2023-06-21] MEDS ORDERED: OLAN10TA74 PO (09:50)
== END 2023-06-18 21:30 | disposition left against medical advice (07) ==
LOC: EMS 18:18
DX: R45.89 Other symptoms and signs involving emotional state (principal); Z53.21 Procedure and treatment not carried out due to patient leaving prior to being seen by health care provider
CPT/HCPCS: 99281; Z7502

== ENCOUNTER 2023-06-19 00:32 | Emergency (ER) | payer MEDICARE, OTHER ==
[~2023-06-19] VITALS: Ht 180.3 cm; Wt 90.0 kg
[2023-06-19 00:45] VITALS: BP 103/74; PULSE 104; RESP 16; TEMP 98.3
[2023-06-20] MEDS ORDERED: ALBU18HF12 IH (20:31)
[2023-06-20] MEDS ORDERED: OLAN10TA3 PO (20:31)
[2023-06-20] MEDS ORDERED: HALO5TAB23 PO (20:31)
[2023-06-21] MEDS ORDERED: OLAN10TA74 PO (09:50)
== END 2023-06-19 05:58 | disposition left against medical advice (07) ==
LOC: EMS 00:32
DX: F41.9 Anxiety disorder, unspecified (principal); Z53.21 Procedure and treatment not carried out due to patient leaving prior to being seen by health care provider
CPT/HCPCS: 99281; Z7502

== ENCOUNTER 2023-06-19 09:53 | Emergency (ER) | payer MEDICARE, OTHER ==
[~2023-06-19] VITALS: Ht 180.3 cm; Wt 90.9 kg
[2023-06-19 10:00] VITALS: BP 150/87; PULSE 98; RESP 20; TEMP 98
[2023-06-19] MEDS: HALOPERIDOL 5 MG TABLET PO ONE (10:23)
[2023-06-19] MEDS: OLANZapine 5 MG TABLET PO ONE (10:23)
[2023-06-20] MEDS ORDERED: ALBU18HF12 IH (20:31)
[2023-06-20] MEDS ORDERED: HALO5TAB23 PO (20:31)
[2023-06-20] MEDS ORDERED: OLAN10TA3 PO (20:31)
[2023-06-21] MEDS ORDERED: OLAN10TA74 PO (09:50)
== END 2023-06-19 10:27 | disposition home or self-care (01) ==
LOC: EMS 09:53
DX: F41.9 Anxiety disorder, unspecified (principal); F25.0 Schizoaffective disorder, bipolar type; F15.10 Other stimulant abuse, uncomplicated; J45.909 Unspecified asthma, uncomplicated; F17.210 Nicotine dependence, cigarettes, uncomplicated; Z98.890 Other specified postprocedural states
CPT/HCPCS: 99283

== ENCOUNTER 2023-06-20 13:56 | Emergency (ER) | payer MEDICARE, OTHER ==
[~2023-06-20] VITALS: Ht 180.3 cm; Wt 90.9 kg
[2023-06-20 14:09] VITALS: BP 128/94; PULSE 99; RESP 18; TEMP 98.5
[2023-06-20] MEDS ORDERED: OLAN10TA3 PO (20:31)
[2023-06-20] MEDS ORDERED: ALBU18HF12 IH (20:31)
[2023-06-20] MEDS ORDERED: HALO5TAB23 PO (20:31)
[2023-06-21] MEDS ORDERED: OLAN10TA74 PO (09:50)
== END 2023-06-20 16:00 | disposition left against medical advice (07) ==
LOC: EMS 13:56
DX: R45.89 Other symptoms and signs involving emotional state (principal); Z53.21 Procedure and treatment not carried out due to patient leaving prior to being seen by health care provider
CPT/HCPCS: 99281; Z7502

== ENCOUNTER 2023-06-20 16:54 | Emergency (ER) | payer MEDICARE, OTHER ==
[~2023-06-20] VITALS: Ht 180.3 cm; Wt 92.0 kg
[2023-06-20 16:56] VITALS: TEMP 98.5
[2023-06-20] MEDS ORDERED: HALOPERIDOL 5 MG TABLET PO ONE (20:30)
[2023-06-20] MEDS ORDERED: OLANZapine 5 MG TABLET PO ONE (20:30)
[2023-06-20] MEDS ORDERED: HALO5TAB23 PO (20:31)
[2023-06-20] MEDS ORDERED: ALBU18HF12 IH (20:31)
[2023-06-20] MEDS ORDERED: OLAN10TA3 PO (20:31)
[2023-06-20 21:22] VITALS: BP 107/73; PULSE 82; RESP 20
[2023-06-21] MEDS ORDERED: OLAN10TA74 PO (09:50)
== END 2023-06-20 21:24 | disposition home or self-care (01) ==
LOC: EMS 17:06
DX: F20.9 Schizophrenia, unspecified (principal); J45.909 Unspecified asthma, uncomplicated; F31.9 Bipolar disorder, unspecified; F17.210 Nicotine dependence, cigarettes, uncomplicated; F15.90 Other stimulant use, unspecified, uncomplicated; Z98.890 Other specified postprocedural states
CPT/HCPCS: 99283

== ENCOUNTER 2023-06-22 15:01 | Emergency (ER) | payer MEDICARE, OTHER ==
[~2023-06-22 15:01] MED LIST changes: +OLAN10TA74 PO
== END 2023-06-22 20:05 | disposition left against medical advice (07) ==
LOC: EMS 15:06
DX: Z76.0 Encounter for issue of repeat prescription (principal); Z53.21 Procedure and treatment not carried out due to patient leaving prior to being seen by health care provider
CPT/HCPCS: 99281; Z7502

== ENCOUNTER 2023-06-28 11:10 | Emergency (ER) | payer MEDICARE, OTHER ==
[~2023-06-28] VITALS: Ht 180.3 cm; Wt 90.9 kg
[~2023-06-28 11:10] MED LIST changes: -OLAN10TA22 PO
[2023-06-28 11:14] VITALS: BP 134/82; PULSE 103; RESP 18; TEMP 97.9
[2023-06-28] MEDS ORDERED: OLANZapine 5 MG TABLET PO ONE (11:30)
== END 2023-06-28 12:32 | disposition left against medical advice (07) ==
LOC: EMS 11:25
DX: R45.89 Other symptoms and signs involving emotional state (principal); Z53.21 Procedure and treatment not carried out due to patient leaving prior to being seen by health care provider
CPT/HCPCS: 99281; Z7502; Z7610

== ENCOUNTER 2023-06-28 21:30 | Emergency (ER) | payer MEDICARE, OTHER ==
[~2023-06-28] VITALS: Ht 180.3 cm; Wt 90.9 kg
[2023-06-28 21:59] VITALS: BP 110/66; PULSE 107; RESP 18; TEMP 98.6
== END 2023-06-29 01:00 | disposition left against medical advice (07) ==
LOC: EMS 21:31
DX: Z53.21 Procedure and treatment not carried out due to patient leaving prior to being seen by health care provider (principal)
CPT/HCPCS: 99281; Z7502

== ENCOUNTER 2023-06-30 14:23 | Emergency (ER) | payer MEDICARE, OTHER ==
[~2023-06-30] VITALS: Ht 180.3 cm; Wt 90.0 kg
[2023-06-30] MEDS ORDERED: HALOPERIDOL 5 MG TABLET PO ONE (14:45)
[2023-06-30] MEDS ORDERED: LORazepam 1 MG TABLET PO ONE (14:45)
[2023-06-30 15:11] VITALS: BP 133/72; PULSE 122; RESP 22; TEMP 98.4
== END 2023-06-30 15:50 | disposition home or self-care (01) ==
LOC: EMS 14:31
DX: F31.9 Bipolar disorder, unspecified (principal); J45.909 Unspecified asthma, uncomplicated; F20.9 Schizophrenia, unspecified; F17.210 Nicotine dependence, cigarettes, uncomplicated; F15.90 Other stimulant use, unspecified, uncomplicated; Z98.890 Other specified postprocedural states
CPT/HCPCS: 99283

== ENCOUNTER → 2023-07-03 | Emergency (ER) | payer MEDICARE, OTHER ==
[~2023-07-03] VITALS: Ht 180.3 cm; Wt 90.9 kg
[2023-07-03 18:16] VITALS: BP 121/68; PULSE 94; RESP 18; TEMP 98.5
== END | disposition still patient (30) ==
LOC: EMS 22:09
DX: F41.9 Anxiety disorder, unspecified (principal); Z53.21 Procedure and treatment not carried out due to patient leaving prior to being seen by health care provider
CPT/HCPCS: 99281; Z7502

== ENCOUNTER 2023-07-10 11:29 | Emergency (ER) | payer MEDICARE, OTHER ==
[~2023-07-10] VITALS: Ht 180.3 cm; Wt 90.9 kg
[2023-07-10 11:35] VITALS: BP 119/77; PULSE 96; RESP 18; TEMP 98
[2023-07-10] MEDS: HALOPERIDOL 5 MG TABLET PO ONE (11:55)
== END 2023-07-10 13:06 | disposition home or self-care (01) ==
LOC: EMS 11:40
DX: F15.10 Other stimulant abuse, uncomplicated (principal); J45.909 Unspecified asthma, uncomplicated; F31.9 Bipolar disorder, unspecified; F20.9 Schizophrenia, unspecified; F17.210 Nicotine dependence, cigarettes, uncomplicated; Z98.890 Other specified postprocedural states
CPT/HCPCS: 99283

== ENCOUNTER 2023-07-14 18:58 | Emergency (ER) | payer MEDICARE, OTHER | END 2023-07-14 19:50 | disposition left against medical advice (07) | LOC: EMS 19:00 | DX: Z53.21 Procedure and treatment not carried out due to patient leaving prior to being seen by health care provider (principal) ==

== ENCOUNTER 2023-07-16 12:37 | Emergency (ER) | payer MEDICARE, OTHER ==
[2023-07-17] MEDS ORDERED: OLAN10TA74 PO (17:46)
== END 2023-07-16 13:37 | disposition still patient (30) ==
LOC: EMS 12:37
DX: Z53.21 Procedure and treatment not carried out due to patient leaving prior to being seen by health care provider (principal)

== ENCOUNTER 2023-07-17 16:53 | Emergency (ER) | payer MEDICARE, OTHER ==
[~2023-07-17] VITALS: Ht 180.3 cm; Wt 91.0 kg
[2023-07-17 16:55] VITALS: TEMP 98.3
[2023-07-17] MEDS ORDERED: OLAN10TA74 PO (17:46)
[2023-07-17] MEDS: OLANZapine 10 MG TABLET PO ONE (18:04)
[2023-07-17] MEDS: HALOPERIDOL 5 MG TABLET PO ONE (18:04)
[2023-07-17 18:11] VITALS: BP 120/74; PULSE 98; RESP 16
== END 2023-07-17 18:11 | disposition home or self-care (01) ==
LOC: EMS 17:17
DX: F25.9 Schizoaffective disorder, unspecified (principal); F31.9 Bipolar disorder, unspecified; J45.909 Unspecified asthma, uncomplicated; Z76.0 Encounter for issue of repeat prescription; F15.90 Other stimulant use, unspecified, uncomplicated; F17.210 Nicotine dependence, cigarettes, uncomplicated; Z79.899 Other long term (current) drug therapy
CPT/HCPCS: 99283

== ENCOUNTER 2023-07-20 13:31 | Emergency (ER) | payer MEDICARE, OTHER ==
[~2023-07-20] VITALS: Ht 177.8 cm; Wt 75.0 kg
[2023-07-20 13:33] VITALS: BP 114/63; PULSE 105; RESP 18; TEMP 97.9
== END 2023-07-20 17:20 | disposition left against medical advice (07) ==
LOC: EMS 13:47
DX: Z53.21 Procedure and treatment not carried out due to patient leaving prior to being seen by health care provider (principal)
CPT/HCPCS: 99281; Z7502

== ENCOUNTER 2023-07-21 21:13 | Emergency (ER) | payer MEDICARE, OTHER | END 2023-07-21 23:24 | disposition left against medical advice (07) | LOC: EMS 21:15 | DX: Z53.21 Procedure and treatment not carried out due to patient leaving prior to being seen by health care provider (principal) ==

== ENCOUNTER 2023-07-22 09:35 | Emergency (ER) | payer MEDICARE, OTHER ==
[~2023-07-22] VITALS: Ht 180.3 cm; Wt 90.9 kg
[2023-07-22 09:52] VITALS: TEMP 98.2
[2023-07-22] MEDS: OLANZapine 10 MG TABLET PO ONE (11:23)
[2023-07-22] MEDS: DiphenhydrAMINE HCL 25 MG CAPSULE PO ONE (11:24)
[2023-07-22 12:30] VITALS: BP 122/71; PULSE 90; RESP 16
== END 2023-07-22 12:43 | disposition home or self-care (01) ==
LOC: EMS 09:35
DX: F25.0 Schizoaffective disorder, bipolar type (principal); J45.909 Unspecified asthma, uncomplicated; F31.9 Bipolar disorder, unspecified; F17.210 Nicotine dependence, cigarettes, uncomplicated; F15.90 Other stimulant use, unspecified, uncomplicated
CPT/HCPCS: 99283

== ENCOUNTER 2023-07-27 22:55 | Emergency (ER) | payer MEDICARE, OTHER ==
[~2023-07-27] VITALS: Ht 180.3 cm; Wt 90.9 kg
[2023-07-27 23:01] VITALS: BP 129/85; PULSE 96; RESP 18; TEMP 97.8
[2023-07-27] MEDS: OLANZapine 10 MG TABLET PO ONE (23:16)
[2023-07-27] MEDS: HALOPERIDOL 5 MG TABLET PO ONE (23:16)
== END 2023-07-27 23:19 | disposition home or self-care (01) ==
LOC: EMS 22:55
DX: F25.0 Schizoaffective disorder, bipolar type (principal); F15.10 Other stimulant abuse, uncomplicated; J45.909 Unspecified asthma, uncomplicated; F31.9 Bipolar disorder, unspecified; F17.210 Nicotine dependence, cigarettes, uncomplicated
CPT/HCPCS: 99283

== ENCOUNTER 2023-07-29 13:04 | Emergency (ER) | payer MEDICARE, OTHER ==
[~2023-07-29] VITALS: Ht 180.3 cm; Wt 100.0 kg
[2023-07-29 13:11] VITALS: BP 120/74; PULSE 106; RESP 20; TEMP 98
== END 2023-07-29 15:30 | disposition left against medical advice (07) ==
LOC: EMS 13:04
DX: F69 Unspecified disorder of adult personality and behavior (principal); Z53.21 Procedure and treatment not carried out due to patient leaving prior to being seen by health care provider
CPT/HCPCS: 99281; Z7502

== ENCOUNTER 2023-07-31 10:25 | Emergency (ER) | payer MEDICARE, OTHER ==
[~2023-07-31] VITALS: Ht 180.3 cm; Wt 93.0 kg
[2023-07-31 10:29] VITALS: BP 142/89; PULSE 102; RESP 16; TEMP 98.3
[2023-07-31] MEDS: OLANZapine 10 MG TABLET PO ONE (12:10)
== END 2023-07-31 13:25 | disposition home or self-care (01) ==
LOC: EMS 10:28
DX: F29 Unspecified psychosis not due to a substance or known physiological condition (principal); J45.909 Unspecified asthma, uncomplicated; F31.9 Bipolar disorder, unspecified; F20.9 Schizophrenia, unspecified; F17.210 Nicotine dependence, cigarettes, uncomplicated; F15.90 Other stimulant use, unspecified, uncomplicated; Z98.890 Other specified postprocedural states
CPT/HCPCS: 99283

== ENCOUNTER 2023-08-02 15:36 | Emergency (ER) | payer MEDICARE, OTHER ==
[~2023-08-02] VITALS: Ht 180.3 cm; Wt 90.9 kg
[2023-08-02 15:45] VITALS: BP 119/75; PULSE 96; RESP 16; TEMP 98.2
[2023-08-02] MEDS: HALOPERIDOL 5 MG TABLET PO ONE (17:46)
[2023-08-02 17:52] LABS: BASOPHILS % (AUTO) 0.8 % (0.0-2.0); EOSINOPHILS % (AUTO) 3.8 % (1.0-6.0); HEMATOCRIT 48.3 % (41-53); HEMOGLOBIN 16.4 g/dL (13.5-17.5); LYMPHOCYTES # (AUTO) 3.2 K/uL (1.0-4.8); MEAN CORPUSCULAR HEMOGLOBIN 30.5 pg (26.0-34.0); MEAN CORPUSCULAR HGB CONC 33.9 G/dL (31.0-37.0); MEAN CORPUSCULAR VOLUME 90 fL (80-100); MONOCYTES # (AUTO) 0.8 K/uL (0.1-1.0); MONOCYTES % (AUTO) 6.2 % (2.0-9.0); NEUTROPHILS # (AUTO) 7.9 K/uL (1.8-7.7); NEUTROPHILS % (AUTO) 63.2 % (40.0-70.0); PLATELET COUNT (AUTO) 383 K/uL (150-450); RED BLOOD CELL COUNT(AUTO) 5.37 MIL/uL (4.50-5.90); RED CELL DISTRIBUTION WIDTH 13.5 % (11.5-14.5); WHITE BLOOD COUNT (AUTO) 12.5 K/uL (4.5-11.0)
[2023-08-02 18:07] LABS: ANION GAP 10 mmol/L (8-16); CALCIUM, TOTAL 9.6 mg/dL (8.8-10.5); CARBON DIOXIDE 28 mmol/L (22-29); CHLORIDE 101 mmol/L (98-107); CREATININE 1.02 mg/dL (0.60-1.30); GLOMERULAR FILTR. RATE CALC > 60 mL/min (>60); GLUCOSE,RANDOM 108 mg/dL (70-110); POTASSIUM 4.3 mmol/L (3.5-5.1); SODIUM SERUM 139 mmol/L (136-145); UREA NITROGEN, BLOOD 10 mg/dL (7-18)
[2023-08-02 18:08] LABS: ALCOHOL, BLOOD (SERUM) < 3 mg/dL (0-10)
[2023-08-02] MEDS ORDERED: ALBU18HF12 IH (18:10)
[2023-08-02 18:13] LABS: ALANINE AMINOTRANSFERASE 37 U/L (12-78); ALKALINE PHOSPHATASE 124 U/L (46-116); ASPARTATE AMINOTRANSFERASE 19 U/L (15-37); BILIRUBIN,TOTAL 0.3 mg/dL (0.1-1.0); TOTAL PROTEIN, SERUM 7.8 g/dL (6.4-8.2)
[2023-08-02] MEDS: ALBUTEROL SULFATE HFA 90 MCG/PUFF 8 GM INHALER IH ONE (18:23)
== END 2023-08-02 18:26 | disposition home or self-care (01) ==
LOC: EMS 15:49
DX: F41.9 Anxiety disorder, unspecified (principal); J45.909 Unspecified asthma, uncomplicated; F31.9 Bipolar disorder, unspecified; F20.9 Schizophrenia, unspecified; F17.210 Nicotine dependence, cigarettes, uncomplicated; F15.90 Other stimulant use, unspecified, uncomplicated; Z98.890 Other specified postprocedural states; Z76.0 Encounter for issue of repeat prescription
CPT/HCPCS: 99283; 80053; 85025; 36415; G0480; J3535

== ENCOUNTER 2023-08-07 13:55 | Emergency (ER) | payer MEDICARE, OTHER ==
[~2023-08-07] VITALS: Ht 180.3 cm; Wt 90.9 kg
[2023-08-07 13:58] VITALS: BP 112/74; PULSE 104; RESP 18; TEMP 98.9
[2023-08-07 15:27] LABS: INFLUENZA A-RTPCR,COMBO NEGATIVE (NEGATIVE); INFLUENZA B-RTPCR,COMBO NEGATIVE (NEGATIVE); RESPIRATORY SYNCYTIAL VRS-PCR NEGATIVE (NEGATIVE); SARS COVID19 RTPCR, COMBO NEGATIVE (NEGATIVE)
== END 2023-08-07 15:45 | disposition left against medical advice (07) ==
LOC: EMS 14:06
DX: R51.9 Headache, unspecified (principal); R68.83 Chills (without fever); Z20.822 Contact with and (suspected) exposure to COVID-19; Z53.21 Procedure and treatment not carried out due to patient leaving prior to being seen by health care provider
CPT/HCPCS: 0241U; 99281; Z7502

== ENCOUNTER 2023-08-21 15:04 | Emergency (ER) | payer MEDICARE, OTHER ==
[~2023-08-21] VITALS: Ht 175.3 cm; Wt 84.1 kg
[2023-08-21 15:09] VITALS: BP 118/72; PULSE 98; RESP 18; TEMP 98.8
[2023-08-21] MEDS: ALBUTEROL SULFATE HFA 90 MCG/PUFF 8 GM INHALER IH ONE (15:36)
== END 2023-08-21 16:27 | disposition home or self-care (01) ==
LOC: EMS 15:04
DX: J45.901 Unspecified asthma with (acute) exacerbation (principal); F15.10 Other stimulant abuse, uncomplicated; F31.9 Bipolar disorder, unspecified; F20.9 Schizophrenia, unspecified; F17.210 Nicotine dependence, cigarettes, uncomplicated; Z98.890 Other specified postprocedural states
CPT/HCPCS: 99283; 94640; J3535

== ENCOUNTER 2023-08-26 15:57 | Emergency (ER) | payer MEDICARE, OTHER ==
[~2023-08-26] VITALS: Ht 180.3 cm; Wt 90.9 kg
[2023-08-26 16:01] VITALS: TEMP 98.4
[2023-08-26] MEDS: OLANZapine 10 MG TABLET PO ONE (17:21)
[2023-08-26] MEDS: HALOPERIDOL 5 MG TABLET PO ONE (18:07)
[2023-08-26 21:03] VITALS: BP 108/74; PULSE 95; RESP 20
== END 2023-08-26 21:12 | disposition home or self-care (01) ==
LOC: EMS 15:57
DX: F22 Delusional disorders (principal); F20.9 Schizophrenia, unspecified; J45.909 Unspecified asthma, uncomplicated; F31.9 Bipolar disorder, unspecified; F17.210 Nicotine dependence, cigarettes, uncomplicated; F15.90 Other stimulant use, unspecified, uncomplicated
CPT/HCPCS: 99283

== ENCOUNTER 2023-08-28 13:35 | Emergency (ER) | payer MEDICARE, OTHER ==
[~2023-08-28] VITALS: Ht 180.3 cm; Wt 90.9 kg
[2023-08-28 13:37] VITALS: BP 117/68; PULSE 108; RESP 18; TEMP 98
== END 2023-08-28 14:59 | disposition left against medical advice (07) ==
LOC: EMS 13:58
DX: F41.9 Anxiety disorder, unspecified (principal); F69 Unspecified disorder of adult personality and behavior; Z53.21 Procedure and treatment not carried out due to patient leaving prior to being seen by health care provider
CPT/HCPCS: 99281; Z7502

== ENCOUNTER 2023-08-31 21:09 | Emergency (ER) | payer MEDICARE, OTHER ==
[~2023-08-31] VITALS: Ht 180.3 cm; Wt 93.2 kg
[2023-08-31 21:29] VITALS: TEMP 98
[2023-08-31] MEDS: OLANZapine 10 MG TABLET PO ONE (23:08)
[2023-08-31 23:15] VITALS: BP 125/78; PULSE 89; RESP 16
== END 2023-08-31 23:40 | disposition home or self-care (01) ==
LOC: EMS 21:09
DX: F41.9 Anxiety disorder, unspecified (principal); J45.909 Unspecified asthma, uncomplicated; F31.9 Bipolar disorder, unspecified; F20.9 Schizophrenia, unspecified; F17.210 Nicotine dependence, cigarettes, uncomplicated; F15.90 Other stimulant use, unspecified, uncomplicated; Z98.890 Other specified postprocedural states
CPT/HCPCS: 99283

== ENCOUNTER 2023-09-03 09:29 | Emergency (ER) | payer MEDICARE, OTHER ==
[2023-09-03] MEDS ORDERED: ALBU18HF12 IH (14:26)
[2023-09-03] MEDS ORDERED: OLAN10TA74 PO (14:26)
[2023-09-03] MEDS ORDERED: HALO5TAB23 PO (14:26)
== END 2023-09-03 10:00 | disposition left against medical advice (07) ==
LOC: EMS 09:44
DX: Z53.21 Procedure and treatment not carried out due to patient leaving prior to being seen by health care provider (principal)

== ENCOUNTER 2023-09-03 13:26 | Emergency (ER) | payer MEDICARE, OTHER ==
[~2023-09-03] VITALS: Ht 180.3 cm; Wt 90.9 kg
[2023-09-03 13:27] VITALS: TEMP 98.2
[2023-09-03 13:37] VITALS: BP 123/66; PULSE 94; RESP 18
[2023-09-03] MEDS: OLANZapine 10 MG TABLET PO ONE (14:16)
[2023-09-03] MEDS ORDERED: HALO5TAB23 PO (14:26)
[2023-09-03] MEDS ORDERED: ALBU18HF12 IH (14:26)
[2023-09-03] MEDS ORDERED: OLAN10TA74 PO (14:26)
== END 2023-09-03 15:35 | disposition home or self-care (01) ==
LOC: EMS 14:35
DX: J45.909 Unspecified asthma, uncomplicated (principal); F31.9 Bipolar disorder, unspecified; F20.9 Schizophrenia, unspecified; F17.210 Nicotine dependence, cigarettes, uncomplicated; F15.90 Other stimulant use, unspecified, uncomplicated; Z76.0 Encounter for issue of repeat prescription
CPT/HCPCS: 99281; Z7502; Z7610

== ENCOUNTER 2023-09-04 16:37 | Emergency (ER) | payer MEDICARE, OTHER ==
[~2023-09-04] VITALS: Ht 180.3 cm; Wt 90.9 kg
[2023-09-04 16:38] VITALS: BP 147/72; PULSE 118; RESP 20; TEMP 98.2
[2023-09-04] MEDS: OLANZapine 5 MG TABLET PO ONE (17:36)
== END 2023-09-04 18:13 | disposition home or self-care (01) ==
LOC: EMS 16:37
DX: F41.9 Anxiety disorder, unspecified (principal); F15.90 Other stimulant use, unspecified, uncomplicated; F20.9 Schizophrenia, unspecified; J45.909 Unspecified asthma, uncomplicated; F31.9 Bipolar disorder, unspecified; F17.210 Nicotine dependence, cigarettes, uncomplicated; Z98.890 Other specified postprocedural states
CPT/HCPCS: 99283

== ENCOUNTER 2023-09-05 08:33 | Emergency (ER) | payer MEDICARE, OTHER ==
[~2023-09-05] VITALS: Ht 180.3 cm; Wt 90.9 kg
[2023-09-05 08:37] VITALS: BP 118/76; PULSE 76; RESP 20; TEMP 98.5
[2023-09-05] MEDS: HALOPERIDOL 5 MG TABLET PO ONE (08:59)
== END 2023-09-05 09:31 | disposition home or self-care (01) ==
LOC: EMS 08:37
DX: F15.90 Other stimulant use, unspecified, uncomplicated (principal); J45.909 Unspecified asthma, uncomplicated; F31.9 Bipolar disorder, unspecified; F20.9 Schizophrenia, unspecified; F17.210 Nicotine dependence, cigarettes, uncomplicated; Z98.890 Other specified postprocedural states
CPT/HCPCS: 99283

== ENCOUNTER 2023-09-08 14:55 | Emergency (ER) | payer MEDICARE, OTHER ==
[~2023-09-08] VITALS: Ht 182.9 cm; Wt 90.0 kg
[2023-09-08 14:58] VITALS: BP 112/68; PULSE 82; RESP 18; TEMP 98
== END 2023-09-08 17:27 | disposition still patient (30) ==
LOC: EMS 14:55
DX: F69 Unspecified disorder of adult personality and behavior (principal); Z53.21 Procedure and treatment not carried out due to patient leaving prior to being seen by health care provider
CPT/HCPCS: 99281; Z7502

== ENCOUNTER 2023-09-20 10:44 | Emergency (ER) | payer MEDICARE, OTHER ==
[~2023-09-20] VITALS: Ht 180.3 cm; Wt 95.5 kg
[~2023-09-20 10:44] MED LIST changes: -ALBU18HF12 IH; -HALO5TAB23 PO; -OLAN10TA74 PO; +OLAN7.5T22 PO
[2023-09-20 10:52] VITALS: TEMP 97.7
[2023-09-20] MEDS ORDERED: OLAN7.5T22 PO (11:37)
[2023-09-20 11:50] VITALS: BP 152/73; PULSE 95; RESP 18
== END 2023-09-20 11:58 | disposition home or self-care (01) ==
LOC: EMS 11:32
DX: F20.9 Schizophrenia, unspecified (principal); J45.909 Unspecified asthma, uncomplicated; F31.9 Bipolar disorder, unspecified; F17.210 Nicotine dependence, cigarettes, uncomplicated; F15.90 Other stimulant use, unspecified, uncomplicated; Z98.890 Other specified postprocedural states
CPT/HCPCS: 99281; Z7502

== ENCOUNTER 2023-09-22 20:23 | Emergency (ER) | payer MEDICARE, OTHER ==
[~2023-09-22] VITALS: Ht 180.3 cm; Wt 95.5 kg
[2023-09-22 20:38] VITALS: BP 127/58; PULSE 89; RESP 18; TEMP 98.6
[2023-09-23] MEDS: HALOPERIDOL 5 MG TABLET PO ONE (01:23)
[2023-09-23] MEDS: LORazepam 1 MG TABLET PO ONE (01:23)
== END 2023-09-23 02:29 | disposition home or self-care (01) ==
LOC: EMS 20:26
DX: F15.10 Other stimulant abuse, uncomplicated (principal); J45.909 Unspecified asthma, uncomplicated; F31.9 Bipolar disorder, unspecified; F20.9 Schizophrenia, unspecified; F17.210 Nicotine dependence, cigarettes, uncomplicated
CPT/HCPCS: 99283

== ENCOUNTER 2023-09-26 11:52 | Emergency (ER) | payer MEDICARE, OTHER ==
[~2023-09-26] VITALS: Ht 180.3 cm; Wt 92.0 kg
[2023-09-26 11:55] VITALS: BP 130/83; PULSE 86; RESP 18; TEMP 98.3
[2023-09-26] MEDS: ALBUTEROL SULFATE HFA 90 MCG/PUFF 8 GM INHALER IH ONE (12:43)
== END 2023-09-26 12:47 | disposition home or self-care (01) ==
LOC: EMS 11:55
DX: J45.909 Unspecified asthma, uncomplicated (principal); F17.200 Nicotine dependence, unspecified, uncomplicated; F31.9 Bipolar disorder, unspecified; F20.9 Schizophrenia, unspecified; F17.210 Nicotine dependence, cigarettes, uncomplicated; F15.90 Other stimulant use, unspecified, uncomplicated
CPT/HCPCS: 99283; 99406; 94640; J3535; 99281

== ENCOUNTER 2023-10-06 15:46 | Emergency (ER) | payer MEDICARE, OTHER ==
[~2023-10-06] VITALS: Ht 180.3 cm; Wt 95.5 kg
[2023-10-06] MEDS ORDERED: HALOPERIDOL 5 MG TABLET PO ONE (16:15)
[2023-10-06] MEDS ORDERED: OLANZapine 10 MG TABLET PO ONE (16:15)
[2023-10-06 16:18] VITALS: BP 100/75; PULSE 108; RESP 18; TEMP 97.9
== END 2023-10-06 18:26 | disposition home or self-care (01) ==
LOC: EMS 15:50
DX: F25.0 Schizoaffective disorder, bipolar type (principal); F15.10 Other stimulant abuse, uncomplicated; F31.9 Bipolar disorder, unspecified; J45.909 Unspecified asthma, uncomplicated; F17.210 Nicotine dependence, cigarettes, uncomplicated
CPT/HCPCS: 99281; Z7502

== ENCOUNTER 2023-10-08 00:18 | Emergency (ER) | payer MEDICARE, OTHER ==
[~2023-10-08] VITALS: Ht 180.3 cm; Wt 97.7 kg
[2023-10-08 00:28] VITALS: TEMP 98.2
[2023-10-08 03:23] VITALS: BP 154/80; PULSE 127; RESP 16
[2023-10-08] MEDS ORDERED: OLAN10TA74 PO (03:40)
[2023-10-08] MEDS: OLANZapine 5 MG TABLET PO ONE (03:44)
[2023-10-08] MEDS: ALBUTEROL SULFATE HFA 90 MCG/PUFF 8 GM INHALER IH ONE (03:44)
== END 2023-10-08 04:04 | disposition home or self-care (01) ==
LOC: EMS 00:18
DX: F25.9 Schizoaffective disorder, unspecified (principal); J45.909 Unspecified asthma, uncomplicated; F31.9 Bipolar disorder, unspecified; F17.210 Nicotine dependence, cigarettes, uncomplicated; F15.90 Other stimulant use, unspecified, uncomplicated; Z76.0 Encounter for issue of repeat prescription
CPT/HCPCS: 99283; 94640; J3535

== ENCOUNTER 2023-10-10 07:21 | Emergency (ER) | payer MEDICARE, OTHER ==
[~2023-10-10] VITALS: Ht 180.3 cm; Wt 95.5 kg
[~2023-10-10 07:21] MED LIST changes: +OLAN10TA74 PO
[2023-10-10 07:24] VITALS: BP 133/78; PULSE 93; RESP 22; TEMP 98.4
[2023-10-10] MEDS: HALOPERIDOL 5 MG TABLET PO ONE (07:56)
== END 2023-10-10 10:02 | disposition home or self-care (01) ==
LOC: EMS 07:21
DX: F15.90 Other stimulant use, unspecified, uncomplicated (principal); J45.909 Unspecified asthma, uncomplicated; F31.9 Bipolar disorder, unspecified; F20.9 Schizophrenia, unspecified; F17.210 Nicotine dependence, cigarettes, uncomplicated; Z98.890 Other specified postprocedural states
CPT/HCPCS: 99283

== ENCOUNTER 2023-10-24 06:52 | Emergency (ER) | payer MEDICARE, OTHER ==
[~2023-10-24] VITALS: Ht 180.3 cm; Wt 95.5 kg
[~2023-10-24 06:52] MED LIST changes: -OLAN7.5T22 PO
[2023-10-24 06:57] VITALS: BP 110/71; PULSE 105; RESP 20; TEMP 97.5
[2023-10-24] MEDS: ALBUTEROL SULFATE HFA 90 MCG/PUFF 8 GM INHALER IH ONE (07:49)
[2023-10-25] MEDS ORDERED: OLAN10TA74 PO (04:02)
[2023-10-25] MEDS ORDERED: ALBU18HF12 IH (04:05)
== END 2023-10-24 08:10 | disposition home or self-care (01) ==
LOC: EMS 06:53
DX: J45.909 Unspecified asthma, uncomplicated (principal); F31.9 Bipolar disorder, unspecified; F20.9 Schizophrenia, unspecified; F17.210 Nicotine dependence, cigarettes, uncomplicated; F15.90 Other stimulant use, unspecified, uncomplicated
CPT/HCPCS: 99283; 94640; J3535

== ENCOUNTER 2023-10-25 03:41 | Emergency (ER) | payer MEDICARE, OTHER ==
[~2023-10-25] VITALS: Ht 180.3 cm; Wt 95.5 kg
[2023-10-25 03:46] VITALS: BP 109/65; PULSE 88; RESP 17; TEMP 97.9
[2023-10-25] MEDS ORDERED: OLAN10TA74 PO (04:02)
[2023-10-25] MEDS ORDERED: ALBU18HF12 IH (04:05)
[2023-10-25] MEDS: OLANZapine 10 MG TABLET PO ONE (04:17)
== END 2023-10-25 04:19 | disposition home or self-care (01) ==
LOC: EMS 03:51
DX: J45.909 Unspecified asthma, uncomplicated (principal); F31.9 Bipolar disorder, unspecified; F20.9 Schizophrenia, unspecified; F17.210 Nicotine dependence, cigarettes, uncomplicated; F15.90 Other stimulant use, unspecified, uncomplicated; Z76.0 Encounter for issue of repeat prescription
CPT/HCPCS: 99281; Z7502; Z7610

== ENCOUNTER 2023-10-26 11:20 | Emergency (ER) | payer MEDICARE, OTHER ==
[~2023-10-26 11:20] MED LIST changes: +ALBU18HF12 IH
== END 2023-10-26 12:49 | disposition left against medical advice (07) ==
LOC: EMS 11:20
DX: Z53.21 Procedure and treatment not carried out due to patient leaving prior to being seen by health care provider (principal)

== ENCOUNTER 2023-10-26 17:32 | Emergency (ER) | payer MEDICARE, OTHER ==
[~2023-10-26] VITALS: Ht 180.3 cm; Wt 95.5 kg
[2023-10-26 17:49] VITALS: BP 122/82; PULSE 108; RESP 14; TEMP 98.3
== END 2023-10-26 19:24 | disposition left against medical advice (07) ==
LOC: EMS 17:32
DX: R45.89 Other symptoms and signs involving emotional state (principal); Z53.21 Procedure and treatment not carried out due to patient leaving prior to being seen by health care provider

== ENCOUNTER 2023-10-29 09:41 | Emergency (ER) | payer MEDICARE, OTHER ==
[~2023-10-29] VITALS: Ht 180.3 cm; Wt 95.5 kg
[2023-10-29 09:48] VITALS: BP 121/83; PULSE 108; RESP 14; TEMP 98.3
[2023-10-29] MEDS: HALOPERIDOL 5 MG TABLET PO ONE (09:57)
== END 2023-10-29 10:47 | disposition home or self-care (01) ==
LOC: EMS 09:41
DX: F15.151 Other stimulant abuse with stimulant-induced psychotic disorder with hallucinations (principal); J45.909 Unspecified asthma, uncomplicated; F17.210 Nicotine dependence, cigarettes, uncomplicated
CPT/HCPCS: 99283

== ENCOUNTER 2023-10-29 11:56 | Emergency (ER) | payer MEDICARE, OTHER ==
[~2023-10-29] VITALS: Ht 180.3 cm; Wt 91.0 kg
[2023-10-29 11:58] VITALS: BP 144/86; PULSE 98; RESP 16; TEMP 98.3
[2023-10-29] MEDS: HydrOXYzine PAMOATE 50 MG CAPSULE PO ONE (12:52)
== END 2023-10-29 14:07 | disposition home or self-care (01) ==
LOC: EMS 11:56
DX: F41.9 Anxiety disorder, unspecified (principal); J45.909 Unspecified asthma, uncomplicated; F17.210 Nicotine dependence, cigarettes, uncomplicated; F15.10 Other stimulant abuse, uncomplicated
CPT/HCPCS: 99283

== ENCOUNTER 2023-10-31 03:38 | Emergency (ER) | payer MEDICARE, OTHER ==
[~2023-10-31] VITALS: Ht 180.3 cm; Wt 95.9 kg
[2023-10-31 03:46] VITALS: BP 141/83; PULSE 75; RESP 15; TEMP 98.7
[2023-10-31] MEDS ORDERED: HALO5TAB23 PO (03:55)
[2023-10-31] MEDS: HALOPERIDOL 5 MG TABLET PO ONE (03:56)
== END 2023-10-31 04:21 | disposition home or self-care (01) ==
LOC: EDUNIT# 03:38 → EMS 03:38
DX: F41.9 Anxiety disorder, unspecified (principal); F20.9 Schizophrenia, unspecified; J45.909 Unspecified asthma, uncomplicated; F32.A Depression, unspecified; F17.210 Nicotine dependence, cigarettes, uncomplicated; F15.90 Other stimulant use, unspecified, uncomplicated; Z76.0 Encounter for issue of repeat prescription
CPT/HCPCS: 99283

== ENCOUNTER 2023-11-01 11:10 | Emergency (ER) | payer MEDICARE, OTHER ==
[~2023-11-01] VITALS: Ht 180.3 cm; Wt 90.9 kg
[~2023-11-01 11:10] MED LIST changes: +HALO5TAB23 PO
[2023-11-01 11:18] VITALS: BP 135/79; PULSE 97; RESP 18; TEMP 98.9
[2023-11-01 11:59] LABS: ANION GAP 11 mmol/L (8-16); CALCIUM, TOTAL 8.7 mg/dL (8.8-10.5); CARBON DIOXIDE 24 mmol/L (22-29); CHLORIDE 104 mmol/L (98-107); CREATININE 0.79 mg/dL (0.60-1.30); GLOMERULAR FILTR. RATE CALC > 60 mL/min (>60); GLUCOSE,RANDOM 84 mg/dL (70-110); SODIUM SERUM 138 mmol/L (136-145); UREA NITROGEN, BLOOD 9 mg/dL (7-18)
[2023-11-01 12:04] LABS: ALANINE AMINOTRANSFERASE 33 U/L (12-78); ALBUMIN 3.3 g/dL (3.4-5.0); ALKALINE PHOSPHATASE 99 U/L (46-116); ASPARTATE AMINOTRANSFERASE 16 U/L (15-37); BILIRUBIN,TOTAL 0.3 mg/dL (0.1-1.0); TOTAL PROTEIN, SERUM 6.8 g/dL (6.4-8.2)
[2023-11-01 12:46] LABS: ALCOHOL, BLOOD (SERUM) 12 mg/dL (0-10)
== END 2023-11-01 13:09 | disposition home or self-care (01) ==
LOC: EMS 11:14
DX: F20.9 Schizophrenia, unspecified (principal); J45.909 Unspecified asthma, uncomplicated; F31.9 Bipolar disorder, unspecified; F17.210 Nicotine dependence, cigarettes, uncomplicated; F15.90 Other stimulant use, unspecified, uncomplicated; Z98.890 Other specified postprocedural states
CPT/HCPCS: 99284; 80053; 36415; G0480

== ENCOUNTER 2023-11-06 20:31 | Emergency (ER) | payer MEDICARE, OTHER ==
[~2023-11-06] VITALS: Ht 180.3 cm; Wt 90.9 kg
[2023-11-06 20:39] VITALS: BP 126/70; PULSE 95; RESP 20; TEMP 98
== END 2023-11-06 23:08 | disposition left against medical advice (07) ==
LOC: EMS 20:31
DX: R06.02 Shortness of breath (principal); Z53.21 Procedure and treatment not carried out due to patient leaving prior to being seen by health care provider

== ENCOUNTER 2023-11-07 08:13 | Emergency (ER) | payer MEDICARE, OTHER ==
[~2023-11-07] VITALS: Ht 180.3 cm; Wt 95.5 kg
[2023-11-07 08:16] VITALS: BP 132/86; PULSE 84; RESP 16; TEMP 97.9
[2023-11-07] MEDS: ALBUTEROL SULFATE HFA 90 MCG/PUFF 8 GM INHALER IH ONE (08:58)
== END 2023-11-07 09:00 | disposition home or self-care (01) ==
LOC: EMS 08:13
DX: J45.909 Unspecified asthma, uncomplicated (principal); F17.210 Nicotine dependence, cigarettes, uncomplicated; F15.10 Other stimulant abuse, uncomplicated
CPT/HCPCS: 99283; J3535; 99281

== ENCOUNTER 2023-11-10 17:03 | Emergency (ER) | payer MEDICARE, OTHER ==
[~2023-11-10] VITALS: Ht 180.3 cm; Wt 95.5 kg
[2023-11-10 17:31] VITALS: BP 136/86; PULSE 102; RESP 18; TEMP 98.2
[2023-11-10] MEDS: OLANZapine 10 MG TABLET PO ONE (18:06)
== END 2023-11-10 19:45 | disposition home or self-care (01) ==
LOC: EMS 19:10
DX: F15.10 Other stimulant abuse, uncomplicated (principal); F25.0 Schizoaffective disorder, bipolar type; F17.210 Nicotine dependence, cigarettes, uncomplicated; J45.909 Unspecified asthma, uncomplicated
CPT/HCPCS: 99283

== ENCOUNTER 2023-11-13 15:56 | Emergency (ER) | payer MEDICARE, OTHER ==
[~2023-11-13] VITALS: Ht 180.3 cm; Wt 90.9 kg
[2023-11-13 16:05] VITALS: BP 116/70; PULSE 104; RESP 20; TEMP 98.9
[2023-11-13] MEDS: ALBUTEROL SULFATE HFA 90 MCG/PUFF 8 GM INHALER IH ONE (16:11)
[2023-11-13] MEDS: HALOPERIDOL 5 MG TABLET PO ONE (16:11)
== END 2023-11-13 16:21 | disposition home or self-care (01) ==
LOC: EMS 15:57
DX: R45.89 Other symptoms and signs involving emotional state (principal); J45.909 Unspecified asthma, uncomplicated; F31.9 Bipolar disorder, unspecified; F20.9 Schizophrenia, unspecified; F17.210 Nicotine dependence, cigarettes, uncomplicated; F15.90 Other stimulant use, unspecified, uncomplicated; Z98.890 Other specified postprocedural states; Z76.0 Encounter for issue of repeat prescription
CPT/HCPCS: 99283; 94640; J3535

== ENCOUNTER 2023-11-16 18:01 | Emergency (ER) | payer MEDICARE, OTHER ==
[~2023-11-16] VITALS: Ht 180.3 cm; Wt 90.9 kg
[2023-11-16 19:03] VITALS: BP 91/64; PULSE 112; RESP 16; TEMP 97.2
[2023-11-16] MEDS: OLANZapine 10 MG TABLET PO ONE (19:10)
[2023-11-16] MEDS: HALOPERIDOL 5 MG TABLET PO ONE (19:10)
== END 2023-11-16 19:11 | disposition home or self-care (01) ==
LOC: EMS 18:01
DX: F25.0 Schizoaffective disorder, bipolar type (principal); F31.9 Bipolar disorder, unspecified; J45.909 Unspecified asthma, uncomplicated; F17.210 Nicotine dependence, cigarettes, uncomplicated; F15.90 Other stimulant use, unspecified, uncomplicated
CPT/HCPCS: 99283

== ENCOUNTER 2023-11-24 17:28 | Emergency (ER) | payer MEDICARE, OTHER ==
[~2023-11-24] VITALS: Ht 180.3 cm; Wt 90.9 kg
[2023-11-24 17:54] VITALS: BP 130/73; PULSE 102; RESP 18; TEMP 98.2
== END 2023-11-24 19:10 | disposition left against medical advice (07) ==
LOC: EMS 17:28
DX: R44.1 Visual hallucinations (principal); Z53.21 Procedure and treatment not carried out due to patient leaving prior to being seen by health care provider

== ENCOUNTER 2023-12-02 17:07 | Emergency (ER) | payer MEDICARE, OTHER ==
[~2023-12-02] VITALS: Ht 182.9 cm; Wt 90.0 kg
[2023-12-02 17:41] VITALS: BP 119/83; PULSE 111; RESP 18; TEMP 98.5
[2023-12-02] MEDS ORDERED: OLAN10TA74 PO (18:13)
[2023-12-02] MEDS ORDERED: HALO5TAB23 PO (18:13)
[2023-12-02] MEDS: ALBUTEROL SULFATE HFA 90 MCG/PUFF 8 GM INHALER IH ONE (18:32)
== END 2023-12-02 18:35 | disposition still patient (30) ==
LOC: EMS 17:07
DX: J45.909 Unspecified asthma, uncomplicated (principal); Z76.0 Encounter for issue of repeat prescription; F31.9 Bipolar disorder, unspecified; F20.9 Schizophrenia, unspecified; F17.210 Nicotine dependence, cigarettes, uncomplicated; F15.90 Other stimulant use, unspecified, uncomplicated
CPT/HCPCS: 99283; 94640; J3535

== ENCOUNTER 2023-12-07 09:42 | Emergency (ER) | payer MEDICARE, OTHER ==
[~2023-12-07] VITALS: Ht 180.3 cm; Wt 90.9 kg
[2023-12-07 09:44] VITALS: BP 120/85; TEMP 98.4
[2023-12-07] MEDS: DiphenhydrAMINE HCL 25 MG CAPSULE PO ONE (11:13)
[2023-12-07] MEDS: HALOPERIDOL 5 MG TABLET PO ONE (11:13)
[2023-12-07] MEDS ORDERED: OLAN10TA74 PO (11:26)
[2023-12-07] MEDS: ALBUTEROL SULFATE HFA 90 MCG/PUFF 8 GM INHALER IH ONE (12:05)
[2023-12-07 12:06] VITALS: PULSE 77; RESP 16; O2SAT 98
== END 2023-12-07 12:06 | disposition home or self-care (01) ==
LOC: EMS 09:42
DX: F20.9 Schizophrenia, unspecified (principal); J45.909 Unspecified asthma, uncomplicated; F31.9 Bipolar disorder, unspecified; F17.210 Nicotine dependence, cigarettes, uncomplicated; F15.90 Other stimulant use, unspecified, uncomplicated
CPT/HCPCS: 99283; 94640; J3535

== ENCOUNTER 2023-12-07 12:42 | Emergency (ER) | payer MEDICARE, OTHER ==
[~2023-12-07] VITALS: Ht 180.3 cm; Wt 90.9 kg
[2023-12-07 12:43] VITALS: BP 127/79; PULSE 84; RESP 20; TEMP 98.2
== END 2023-12-07 15:31 | disposition left against medical advice (07) ==
LOC: EMS 12:42
DX: F69 Unspecified disorder of adult personality and behavior (principal); Z53.21 Procedure and treatment not carried out due to patient leaving prior to being seen by health care provider

== ENCOUNTER 2023-12-09 20:08 | Emergency (ER) | payer MEDICARE, OTHER ==
[~2023-12-09] VITALS: Ht 180.3 cm; Wt 93.2 kg
[2023-12-09 20:15] VITALS: BP 114/81; PULSE 112; RESP 20; TEMP 98.2
[2023-12-09] MEDS: OLANZapine 10 MG TABLET PO ONE (23:44)
[2023-12-09] MEDS: DiphenhydrAMINE HCL 25 MG CAPSULE PO ONE (23:44)
[2023-12-09] MEDS: ALBUTEROL SULFATE HFA 90 MCG/PUFF 8 GM INHALER IH ONE (23:46)
== END 2023-12-09 23:53 | disposition home or self-care (01) ==
LOC: EMS 20:11
DX: F15.10 Other stimulant abuse, uncomplicated (principal); F20.9 Schizophrenia, unspecified; F31.9 Bipolar disorder, unspecified; J45.909 Unspecified asthma, uncomplicated; F17.210 Nicotine dependence, cigarettes, uncomplicated
CPT/HCPCS: 99283; 94640; J3535

== ENCOUNTER 2023-12-25 17:43 | Emergency (ER) | payer MEDICARE, OTHER ==
[~2023-12-25] VITALS: Ht 180.3 cm; Wt 90.9 kg
[~2023-12-25 17:43] MED LIST changes: -ALBU18HF12 IH; +BUPR-514 PO; -HALO5TAB23 PO; +NALT50TA33 PO; +OLAN10TA26 PO; -OLAN10TA74 PO
[2023-12-25 17:46] VITALS: BP 142/84; PULSE 94; RESP 16; TEMP 98
[2023-12-25] MEDS ORDERED: ALBU18HF12 IH ×2 (17:47→18:05)
== END 2023-12-25 18:17 | disposition home or self-care (01) ==
LOC: EMS 18:02
DX: L02.01 Cutaneous abscess of face (principal); F15.10 Other stimulant abuse, uncomplicated; F17.210 Nicotine dependence, cigarettes, uncomplicated; J45.909 Unspecified asthma, uncomplicated
CPT/HCPCS: 99283; Z7502

== ENCOUNTER 2023-12-26 18:23 | Emergency (ER) | payer MEDICARE, OTHER ==
[~2023-12-26] VITALS: Ht 180.3 cm; Wt 90.9 kg
[~2023-12-26 18:23] MED LIST changes: +ALBU18HF12 IH
[2023-12-26 18:32] VITALS: BP 129/82; PULSE 95; RESP 20; TEMP 98.5
== END 2023-12-26 23:31 | disposition left against medical advice (07) ==
LOC: EMS 18:23
DX: F22 Delusional disorders (principal); Z53.21 Procedure and treatment not carried out due to patient leaving prior to being seen by health care provider
CPT/HCPCS: 99283

== ENCOUNTER 2024-01-10 14:32 | Emergency (ER) | payer MEDICARE, OTHER ==
[~2024-01-10] VITALS: Ht 180.3 cm; Wt 90.9 kg
[2024-01-10 14:33] VITALS: TEMP 98.2
[2024-01-10] MEDS ORDERED: ALBU18HF12 IH (16:06)
[2024-01-10 16:15] VITALS: BP 116/67; PULSE 114; RESP 22
[2024-01-10] MEDS: ALBUTEROL SULFATE HFA 90 MCG/PUFF 8 GM INHALER IH ONE (16:16)
== END 2024-01-10 16:21 | disposition home or self-care (01) ==
LOC: EMS 14:33
DX: J45.909 Unspecified asthma, uncomplicated (principal); Z76.0 Encounter for issue of repeat prescription; R06.02 Shortness of breath; F17.210 Nicotine dependence, cigarettes, uncomplicated; F15.10 Other stimulant abuse, uncomplicated
CPT/HCPCS: 99283; 99406; 94640; J3535

== ENCOUNTER 2024-01-13 16:35 | Emergency (ER) | payer MEDICARE, OTHER ==
[~2024-01-13] VITALS: Ht 180.3 cm; Wt 75.0 kg
[2024-01-13 16:42] VITALS: TEMP 98.4
[2024-01-13 17:45] VITALS: BP 115/67; PULSE 109; RESP 17
== END 2024-01-13 19:47 | disposition home or self-care (01) ==
LOC: EMS 18:03
DX: F41.9 Anxiety disorder, unspecified (principal); F15.10 Other stimulant abuse, uncomplicated; F31.9 Bipolar disorder, unspecified; F20.9 Schizophrenia, unspecified; J45.909 Unspecified asthma, uncomplicated; F17.210 Nicotine dependence, cigarettes, uncomplicated
CPT/HCPCS: 99281; Z7502

== ENCOUNTER 2024-01-31 08:51 | Emergency (ER) | payer MEDICARE, OTHER ==
[~2024-01-31] VITALS: Ht 180.3 cm; Wt 100.0 kg
[2024-01-31 08:53] VITALS: BP 146/84; PULSE 96; RESP 18; TEMP 98.2; O2SAT 99
[2024-01-31] MEDS: OLANZapine 5 MG RAPDIS TABLET PO ONE (09:42)
== END 2024-01-31 10:29 | disposition home or self-care (01) ==
LOC: EMS 09:05
DX: R45.851 Suicidal ideations (principal); F15.10 Other stimulant abuse, uncomplicated; J45.909 Unspecified asthma, uncomplicated; F31.9 Bipolar disorder, unspecified; F20.9 Schizophrenia, unspecified; F17.210 Nicotine dependence, cigarettes, uncomplicated; Z98.890 Other specified postprocedural states
CPT/HCPCS: 99284; Z7502

== ENCOUNTER 2024-02-25 12:32 | Emergency (ER) | payer MEDICARE, OTHER ==
[~2024-02-25] VITALS: Ht 180.3 cm; Wt 95.5 kg
[2024-02-25 12:34] VITALS: BP 134/85; PULSE 92; RESP 18; TEMP 98.3; O2SAT 99
== END 2024-02-25 14:51 | disposition left against medical advice (07) ==
LOC: EMS 12:32
DX: F15.90 Other stimulant use, unspecified, uncomplicated (principal); Z76.0 Encounter for issue of repeat prescription; Z53.21 Procedure and treatment not carried out due to patient leaving prior to being seen by health care provider

== ENCOUNTER 2024-02-26 01:22 | Emergency (ER) | payer MEDICARE, OTHER ==
[~2024-02-26] VITALS: Ht 180.3 cm; Wt 93.2 kg
[2024-02-26 02:19] VITALS: BP 117/67; PULSE 113; RESP 18; TEMP 98; O2SAT 97
[2024-02-26] MEDS: OLANZapine 5 MG TABLET PO ONE (02:52)
== END 2024-02-26 05:27 | disposition home or self-care (01) ==
LOC: EMS 01:22
DX: F41.9 Anxiety disorder, unspecified (principal); F19.10 Other psychoactive substance abuse, uncomplicated; J45.909 Unspecified asthma, uncomplicated; F20.9 Schizophrenia, unspecified; Z79.899 Other long term (current) drug therapy
CPT/HCPCS: 99283

== ENCOUNTER 2024-02-28 12:41 | Emergency (ER) | payer MEDICARE, OTHER ==
[~2024-02-28] VITALS: Ht 180.3 cm; Wt 95.5 kg
[2024-02-28 12:46] VITALS: BP 136/84; TEMP 98
[2024-02-28 13:45] VITALS: PULSE 80; RESP 16; O2SAT 100; O2SAT 80
[2024-02-28] MEDS: ALBUTEROL SULFATE 2.5 MG/0.5 ML NEB SOLUTION NEB ONE (13:57)
[2024-02-28] MEDS: ALBUTEROL SULFATE HFA 90 MCG/PUFF 8 GM INHALER IH ONE (13:57)
[2024-02-28 14:01] VITALS: PULSE 80; RESP 16; O2SAT 100
[2024-02-28 14:04] VITALS: PULSE 80; RESP 16; O2SAT 100
[2024-02-28] MEDS ORDERED: ALBU18HF12 IH (14:14)
== END 2024-02-28 14:22 | disposition home or self-care (01) ==
LOC: EMS 12:41
DX: J45.909 Unspecified asthma, uncomplicated (principal); F17.210 Nicotine dependence, cigarettes, uncomplicated; F15.90 Other stimulant use, unspecified, uncomplicated; F20.9 Schizophrenia, unspecified; F31.9 Bipolar disorder, unspecified; Z98.890 Other specified postprocedural states; Z76.0 Encounter for issue of repeat prescription
CPT/HCPCS: 94640; 99283

== ENCOUNTER 2024-03-14 19:57 | Emergency (ER) | payer MEDICARE, OTHER ==
[~2024-03-14] VITALS: Ht 175.3 cm; Wt 80.0 kg
[2024-03-14 20:00] VITALS: BP 113/68; PULSE 102; RESP 24; TEMP 98.4; O2SAT 100
[2024-03-14] MEDS ORDERED: OLAN10TA74 PO (21:03)
[2024-03-14] MEDS ORDERED: HALO5TAB23 PO (21:03)
[2024-03-14] MEDS: ALBUTEROL SULFATE HFA 90 MCG/PUFF 8 GM INHALER IH ONE (21:16)
== END 2024-03-14 21:22 | disposition home or self-care (01) ==
LOC: EMS 19:57
DX: J45.909 Unspecified asthma, uncomplicated (principal); F25.0 Schizoaffective disorder, bipolar type; F15.10 Other stimulant abuse, uncomplicated; F17.210 Nicotine dependence, cigarettes, uncomplicated; Z79.899 Other long term (current) drug therapy
CPT/HCPCS: 99283; 94640; J3535

== ENCOUNTER 2024-03-18 17:00 | Emergency (ER) | payer MEDICARE, OTHER ==
[~2024-03-18] VITALS: Ht 180.3 cm; Wt 93.2 kg
[~2024-03-18 17:00] MED LIST changes: +HALO5TAB23 PO; +OLAN10TA74 PO
[2024-03-18 17:04] VITALS: BP 112/79; PULSE 114; RESP 20; TEMP 98.5; O2SAT 100
[2024-03-18] MEDS: OLANZapine 10 MG TABLET PO ONE (17:33)
[2024-03-18] MEDS: HALOPERIDOL 5 MG TABLET PO ONE (17:33)
[2024-03-18 17:51] LABS: BASOPHILS % (AUTO) 0.6 % (0.0-2.0); EOSINOPHILS % (AUTO) 1.6 % (1.0-6.0); HEMATOCRIT 47.2 % (41-53); HEMOGLOBIN 15.4 g/dL (13.5-17.5); LYMPHOCYTES # (AUTO) 1.8 K/uL (1.0-4.8); LYMPHOCYTES % (AUTO) 15.6 % (22.0-44.0); MEAN CORPUSCULAR HEMOGLOBIN 29.9 pg (26.0-34.0); MEAN CORPUSCULAR HGB CONC 32.7 G/dL (31.0-37.0); MEAN CORPUSCULAR VOLUME 92 fL (80-100); MONOCYTES # (AUTO) 0.8 K/uL (0.1-1.0); MONOCYTES % (AUTO) 7.4 % (2.0-9.0); NEUTROPHILS # (AUTO) 8.6 K/uL (1.8-7.7); NEUTROPHILS % (AUTO) 74.8 % (40.0-70.0); PLATELET COUNT (AUTO) 295 K/uL (150-450); RED BLOOD CELL COUNT(AUTO) 5.16 MIL/uL (4.50-5.90); RED CELL DISTRIBUTION WIDTH 13.8 % (11.5-14.5); WHITE BLOOD COUNT (AUTO) 11.4 K/uL (4.5-11.0)
[2024-03-18 18:02] LABS: ANION GAP 11 mmol/L (8-16); CALCIUM, TOTAL 9.3 mg/dL (8.8-10.5); CARBON DIOXIDE 26 mmol/L (22-29); CHLORIDE 103 mmol/L (98-107); CREATININE 0.91 mg/dL (0.60-1.30); GLOMERULAR FILTR. RATE CALC > 60 mL/min (>60); GLUCOSE,RANDOM 109 mg/dL (70-110); POTASSIUM 4.4 mmol/L (3.5-5.1); SODIUM SERUM 140 mmol/L (136-145); UREA NITROGEN, BLOOD 8 mg/dL (7-18)
[2024-03-18 18:13] LABS: TROPONIN I-HIGH SENSITIVITY 4 ng/L (<76)
[2024-03-18] MEDS: ALBUTEROL SULFATE HFA 90 MCG/PUFF 8 GM INHALER IH ONE (18:29)
== END 2024-03-18 18:38 | disposition home or self-care (01) ==
LOC: EMS 17:01
DX: J45.901 Unspecified asthma with (acute) exacerbation (principal); F41.9 Anxiety disorder, unspecified; F15.10 Other stimulant abuse, uncomplicated; F31.9 Bipolar disorder, unspecified; F20.9 Schizophrenia, unspecified; F17.210 Nicotine dependence, cigarettes, uncomplicated; Z98.890 Other specified postprocedural states
CPT/HCPCS: 99285; 71045; 80048; 84484; 85025; 36415; 94640; 93005; J3535

== ENCOUNTER 2024-03-21 11:01 | Emergency (ER) | payer MEDICARE, OTHER ==
[~2024-03-21] VITALS: Ht 180.3 cm; Wt 93.2 kg
[2024-03-21] MEDS: HALOPERIDOL 5 MG TABLET PO ONE (12:29)
[2024-03-21 12:33] VITALS: BP 103/66; PULSE 94; RESP 18; TEMP 98.9; O2SAT 99
== END 2024-03-21 12:34 | disposition home or self-care (01) ==
LOC: EMS 11:01
DX: F41.9 Anxiety disorder, unspecified (principal); J45.909 Unspecified asthma, uncomplicated; F20.9 Schizophrenia, unspecified; F17.210 Nicotine dependence, cigarettes, uncomplicated; F15.10 Other stimulant abuse, uncomplicated; Z79.899 Other long term (current) drug therapy
CPT/HCPCS: 99283

== ENCOUNTER 2024-04-18 11:23 | Emergency (ER) | payer MEDICARE, OTHER ==
[~2024-04-18] VITALS: Ht 180.3 cm; Wt 90.9 kg
[~2024-04-18 11:23] MED LIST changes: -BUPR-514 PO; -NALT50TA33 PO; -OLAN10TA26 PO
[2024-04-18 11:25] VITALS: TEMP 98.2
[2024-04-18] MEDS ORDERED: ATOR10TA69 PO (11:28)
[2024-04-18] MEDS: OLANZapine 10 MG TABLET PO ONE (13:29)
[2024-04-18] MEDS: ALBUTEROL SULFATE HFA 90 MCG/PUFF 8 GM INHALER IH ONE (13:45)
[2024-04-18 13:47] VITALS: BP 121/78; PULSE 100; RESP 18; O2SAT 100
== END 2024-04-18 13:56 | disposition home or self-care (01) ==
LOC: EMS 11:23
DX: F15.90 Other stimulant use, unspecified, uncomplicated (principal); Z76.0 Encounter for issue of repeat prescription; F20.9 Schizophrenia, unspecified; F17.210 Nicotine dependence, cigarettes, uncomplicated; J45.909 Unspecified asthma, uncomplicated; Z79.899 Other long term (current) drug therapy
CPT/HCPCS: 99283; 99406; 94640; J3535

== ENCOUNTER 2024-04-25 02:34 | Emergency (ER) | payer MEDICARE, OTHER ==
[~2024-04-25] VITALS: Ht 167.6 cm; Wt 81.8 kg
[~2024-04-25 02:34] MED LIST changes: +ATOR10TA69 PO
[2024-04-25 03:35] VITALS: BP 189/113; PULSE 118; RESP 20; TEMP 98.8; O2SAT 96
[2024-04-25] MEDS ORDERED: ALBU18HF12 IH (04:06)
[2024-04-25] MEDS ORDERED: OLAN10TA74 PO (04:06)
[2024-04-25] MEDS ORDERED: ALBUTEROL SULFATE HFA 90 MCG/PUFF 8 GM INHALER IH ONE (04:15)
[2024-04-25] MEDS: OLANZapine 10 MG TABLET PO ONE (04:16)
== END 2024-04-25 04:50 | disposition home or self-care (01) ==
LOC: EMS 02:34
DX: F20.9 Schizophrenia, unspecified (principal); J45.909 Unspecified asthma, uncomplicated; F31.9 Bipolar disorder, unspecified; F17.210 Nicotine dependence, cigarettes, uncomplicated; F15.90 Other stimulant use, unspecified, uncomplicated; Z76.0 Encounter for issue of repeat prescription; Z98.890 Other specified postprocedural states
CPT/HCPCS: 94640; 99283

== ENCOUNTER 2024-04-30 17:16 | Emergency (ER) | payer MEDICARE, OTHER ==
[~2024-04-30] VITALS: Ht 180.3 cm; Wt 93.2 kg
[2024-04-30 17:19] VITALS: BP 96/53; PULSE 93; RESP 16; TEMP 98.3; O2SAT 98
[2024-04-30] MEDS ORDERED: FLUT1BLS9 IH (17:46)
[2024-04-30] MEDS: ALBUTEROL SULFATE HFA 90 MCG/PUFF 8 GM INHALER IH ONE (17:49)
[2024-04-30] MEDS ORDERED: OLAN10TA74 PO (17:49)
[2024-04-30] MEDS: OLANZapine 5 MG TABLET PO ONE (17:49)
== END 2024-04-30 17:56 | disposition home or self-care (01) ==
LOC: EMS 17:17
DX: R06.02 Shortness of breath (principal); Z76.0 Encounter for issue of repeat prescription; J45.901 Unspecified asthma with (acute) exacerbation; F15.10 Other stimulant abuse, uncomplicated; F41.9 Anxiety disorder, unspecified; F17.210 Nicotine dependence, cigarettes, uncomplicated; F20.9 Schizophrenia, unspecified; Z79.899 Other long term (current) drug therapy
CPT/HCPCS: 99283; 94640; J3535

== ENCOUNTER 2024-05-04 16:53 | Emergency (ER) | payer MEDICARE, OTHER ==
[~2024-05-04] VITALS: Ht 180.3 cm; Wt 90.9 kg
[~2024-05-04 16:53] MED LIST changes: +FLUT1BLS9 IH
[2024-05-04 16:54] VITALS: BP 126/81; PULSE 116; RESP 20; TEMP 98.3; O2SAT 99
[2024-05-04 17:45] LABS: BASOPHILS % (AUTO) 0.7 % (0.0-2.0); EOSINOPHILS % (AUTO) 4.4 % (1.0-6.0); HEMATOCRIT 47.3 % (41-53); HEMOGLOBIN 15.5 g/dL (13.5-17.5); LYMPHOCYTES # (AUTO) 3.3 K/uL (1.0-4.8); LYMPHOCYTES % (AUTO) 22.9 % (22.0-44.0); MEAN CORPUSCULAR HEMOGLOBIN 30.1 pg (26.0-34.0); MEAN CORPUSCULAR HGB CONC 32.9 G/dL (31.0-37.0); MEAN CORPUSCULAR VOLUME 92 fL (80-100); MONOCYTES # (AUTO) 0.7 K/uL (0.1-1.0); MONOCYTES % (AUTO) 5.1 % (2.0-9.0); NEUTROPHILS # (AUTO) 9.6 K/uL (1.8-7.7); NEUTROPHILS % (AUTO) 66.9 % (40.0-70.0); PLATELET COUNT (AUTO) 338 K/uL (150-450); RED BLOOD CELL COUNT(AUTO) 5.16 MIL/uL (4.50-5.90); RED CELL DISTRIBUTION WIDTH 13.8 % (11.5-14.5); WHITE BLOOD COUNT (AUTO) 14.3 K/uL (4.5-11.0)
[2024-05-04 17:53] LABS: ANION GAP 8 mmol/L (8-16); CARBON DIOXIDE 26 mmol/L (22-29); CHLORIDE 102 mmol/L (98-107); CREATININE 1.03 mg/dL (0.60-1.30); GLOMERULAR FILTR. RATE CALC > 60 mL/min (>60); GLUCOSE,RANDOM 122 mg/dL (70-110); POTASSIUM 4.4 mmol/L (3.5-5.1); SODIUM SERUM 136 mmol/L (136-145); UREA NITROGEN, BLOOD 7 mg/dL (7-18)
[2024-05-04 18:01] LABS: ALCOHOL, BLOOD (SERUM) < 3 mg/dL (0-10)
[2024-05-04] MEDS: OLANZapine 10 MG TABLET PO ONE (19:12)
== END 2024-05-04 19:51 | disposition home or self-care (01) ==
LOC: EMS 16:53
DX: F20.9 Schizophrenia, unspecified (principal); F15.10 Other stimulant abuse, uncomplicated; J45.909 Unspecified asthma, uncomplicated; F17.210 Nicotine dependence, cigarettes, uncomplicated; Z79.51 Long term (current) use of inhaled steroids; Z79.899 Other long term (current) drug therapy
CPT/HCPCS: 99284; 80048; 85025; 36415; G0480

== ENCOUNTER 2024-05-10 16:08 | Emergency (ER) | payer MEDICARE, OTHER ==
[~2024-05-10] VITALS: Ht 180.3 cm; Wt 79.5 kg
[~2024-05-10 16:08] MED LIST changes: -HALO5TAB23 PO
[2024-05-10 16:32] VITALS: BP 100/59; PULSE 88; RESP 18; TEMP 98.2; O2SAT 98
[2024-05-10] MEDS ORDERED: HALO5TAB23 PO (17:30)
[2024-05-10] MEDS: HALOPERIDOL 5 MG TABLET PO ONE (18:10)
== END 2024-05-10 18:34 | disposition home or self-care (01) ==
LOC: EMS 16:08
DX: F41.9 Anxiety disorder, unspecified (principal); F15.90 Other stimulant use, unspecified, uncomplicated; J45.909 Unspecified asthma, uncomplicated; F20.9 Schizophrenia, unspecified; F17.210 Nicotine dependence, cigarettes, uncomplicated
CPT/HCPCS: 99283

== ENCOUNTER 2024-05-18 17:49 | Emergency (ER) | payer MEDICARE, OTHER ==
[~2024-05-18] VITALS: Ht 180.3 cm; Wt 93.2 kg
[~2024-05-18 17:49] MED LIST changes: -ATOR10TA69 PO; -FLUT1BLS9 IH; +HALO5TAB23 PO
[2024-05-18 17:56] VITALS: BP 98/66; PULSE 108; RESP 18; TEMP 97.7; O2SAT 99
[2024-05-18] MEDS ORDERED: OLAN10TA74 PO (18:56)
[2024-05-18] MEDS ORDERED: ALBU18HF12 IH (18:56)
[2024-05-18] MEDS: OLANZapine 10 MG TABLET PO ONE (19:00)
[2024-05-18] MEDS: ALBUTEROL SULFATE HFA 90 MCG/PUFF 8 GM INHALER IH ONE (19:11)
== END 2024-05-18 19:12 | disposition home or self-care (01) ==
LOC: EMS 17:49 → EDUNIT# 17:49 → EMS 19:12
DX: J45.909 Unspecified asthma, uncomplicated (principal); F20.9 Schizophrenia, unspecified; F31.9 Bipolar disorder, unspecified; F17.210 Nicotine dependence, cigarettes, uncomplicated; F15.90 Other stimulant use, unspecified, uncomplicated; Z98.890 Other specified postprocedural states; Z76.0 Encounter for issue of repeat prescription; Z79.899 Other long term (current) drug therapy
CPT/HCPCS: 99283; 94640; J3535

== ENCOUNTER 2024-05-19 10:34 | Inpatient (IN) | payer MEDICARE, MEDICAID ==
[~2024-05-19] VITALS: Ht 180.3 cm; Wt 89.4 kg
[2024-05-19] MEDS: OLANZapine 10 MG TABLET PO ONE (11:27)
[2024-05-19 11:49] LABS: COVID AG,FIA SOURCE NASAL SWAB
[2024-05-19 12:10] LABS: BASOPHILS % (AUTO) 0.4 % (0.0-2.0); EOSINOPHILS % (AUTO) 1.8 % (1.0-6.0); HEMATOCRIT 45.7 % (41-53); HEMOGLOBIN 15.3 g/dL (13.5-17.5); LYMPHOCYTES # (AUTO) 2.1 K/uL (1.0-4.8); LYMPHOCYTES % (AUTO) 16.6 % (22.0-44.0); MEAN CORPUSCULAR HEMOGLOBIN 30.5 pg (26.0-34.0); MEAN CORPUSCULAR HGB CONC 33.6 G/dL (31.0-37.0); MEAN CORPUSCULAR VOLUME 91 fL (80-100); MONOCYTES # (AUTO) 0.8 K/uL (0.1-1.0); MONOCYTES % (AUTO) 6.1 % (2.0-9.0); NEUTROPHILS # (AUTO) 9.7 K/uL (1.8-7.7); NEUTROPHILS % (AUTO) 75.1 % (40.0-70.0); PLATELET COUNT (AUTO) 322 K/uL (150-450); RED BLOOD CELL COUNT(AUTO) 5.02 MIL/uL (4.50-5.90); RED CELL DISTRIBUTION WIDTH 13.9 % (11.5-14.5); WHITE BLOOD COUNT (AUTO) 12.9 K/uL (4.5-11.0)
[2024-05-19 12:15] LABS: SARS-COV2 (COVID) ANTIGEN,FIA Negative (Negative)
[2024-05-19 12:20] LABS: ANION GAP 5 mmol/L (8-16); CALCIUM, TOTAL 8.8 mg/dL (8.8-10.5); CARBON DIOXIDE 31 mmol/L (22-29); CHLORIDE 104 mmol/L (98-107); CREATININE 1.08 mg/dL (0.60-1.30); GLOMERULAR FILTR. RATE CALC > 60 mL/min (>60); GLUCOSE,RANDOM 69 mg/dL (70-110); POTASSIUM 3.8 mmol/L (3.5-5.1); SODIUM SERUM 140 mmol/L (136-145); UREA NITROGEN, BLOOD 7 mg/dL (7-18)
[2024-05-19 12:54] LABS: ALCOHOL, BLOOD (SERUM) < 3 mg/dL (0-10)
[2024-05-19] MEDS ORDERED: HALOPERIDOL 5 MG TABLET PO PRN (14:00)
[2024-05-19] MEDS: NICOTINE 7 MG/24 HOUR PATCH TD ONE (17:22)
[2024-05-19 19:00] VITALS: O2SAT 98
[2024-05-19 23:01] VITALS: BP 103/64; PULSE 79; RESP 16; TEMP 97.9; O2SAT 97
[2024-05-19] MEDS: ZOLPIDEM TARTRATE 10 MG TABLET PO PRN (23:12)
[2024-05-20 08:24] VITALS: BP 109/74; PULSE 80; RESP 16; TEMP 97.9; O2SAT 97
[2024-05-20] MEDS ORDERED: IBUPROFEN 600 MG TABLET PO PRN (09:30)
[2024-05-20] MEDS ORDERED: ACETAMINOPHEN 325 MG TABLET PO PRN (09:30)
[2024-05-20] MEDS ORDERED: LOPERAMIDE HCL 2 MG CAPSULE PO PRN (09:30)
[2024-05-20] MEDS ORDERED: DOCUSATE SODIUM 100 MG CAPSULE PO PRN (09:30)
[2024-05-20] MEDS ORDERED: BACITRACIN 28 GM OINTMENT TP PRN (09:30)
[2024-05-20] MEDS ORDERED: PETROLATUM,WHITE 28 GM JELLY TP PRN (09:30)
[2024-05-20] MEDS ORDERED: BENZOCAINE/MENTHOL LOZENGE PO PRN (09:30)
[2024-05-20] MEDS ORDERED: MAGNESIUM HYDROXIDE SUSPENSION 30 ML UDCUP PO PRN (09:30)
[2024-05-20] MEDS ORDERED: OMEPRAZOLE 20 MG CAPSULE PO PRN (09:30)
[2024-05-20] MEDS ORDERED: ONDANSETRON 4 MG TABLET PO PRN (09:30)
[2024-05-20] MEDS ORDERED: CloNIDine HCL 0.1 MG TABLET PO PRN (09:30)
[2024-05-20] MEDS ORDERED: MAG HYDROX/ALUMINUM HYD/SIMETH ES 30 ML SUSPENSION UDCUP PO PRN (09:30)
[2024-05-20 09:50] LABS: HEMOGLOBIN A1C 5.6 % (3.8-5.6)
[2024-05-20 10:03] LABS: CHOL/HDL RATIO 4.3 (4.2-7.3)
[2024-05-20] MEDS: ALBUTEROL SULFATE HFA 90 MCG/PUFF 8 GM INHALER IH PRN (11:37)
[2024-05-20] MEDS: NICOTINE 7 MG/24 HOUR PATCH TD PRN (11:38)
[2024-05-20] MEDS: LORazepam 2 MG TABLET PO PRN (12:15)
[2024-05-20] MEDS: INFLUENZA VIRUS VACCINE TVS (6MO+) 2024-25/PF 45 MCG/0.5 ML SYRINGE IM. ONE (12:20)
[2024-05-20 20:17] VITALS: BP 118/64; PULSE 82; RESP 18; TEMP 98.1; O2SAT 96
[2024-05-21 08:16] VITALS: BP 119/65; PULSE 63; RESP 19; TEMP 98.1; O2SAT 97
[2024-05-21] MEDS ORDERED: OLANZapine 5 MG RAPDIS TABLET PO PRN (12:15)
[2024-05-21] MEDS: OLANZapine 5 MG RAPDIS TABLET PO ONE (12:36)
[2024-05-21] MEDS: OLANZapine 5 MG RAPDIS TABLET PO SCH (12:40)
[2024-05-21 20:33] VITALS: BP 120/60; PULSE 83; RESP 18; TEMP 97.9; O2SAT 95
[2024-05-22 08:15] VITALS: BP 100/60; PULSE 70; RESP 18; TEMP 97.6; O2SAT 95
[2024-05-22 21:51] VITALS: BP 100/70; PULSE 87; RESP 18; TEMP 97.7; O2SAT 99
[2024-05-23 08:16] VITALS: BP 106/70; PULSE 89; RESP 18; TEMP 97.8; O2SAT 98
== END 2024-05-23 14:35 | disposition home or self-care (01) | DRG 885 ==
LOC: EMS 10:37 → B2X 22:19
PROVIDERS: ADMIT Psychiatry & Neurology Psychiatry; ATTEND Psychiatry & Neurology Psychiatry
PROC: GZ56ZZZ Individual Psychotherapy, Supportive (ICD-10-PCS; principal; 2024-05-19)
DX: F25.9 Schizoaffective disorder, unspecified (principal); R45.851 Suicidal ideations; Z59.00 Homelessness unspecified; J44.9 Chronic obstructive pulmonary disease, unspecified; Z20.822 Contact with and (suspected) exposure to COVID-19; K21.9 Gastro-esophageal reflux disease without esophagitis; E55.9 Vitamin D deficiency, unspecified; K59.00 Constipation, unspecified; Z87.891 Personal history of nicotine dependence; Z91.148 Patient's other noncompliance with medication regimen for other reason; F15.10 Other stimulant abuse, uncomplicated
CPT/HCPCS: 80048; 80061; 83036; 85025; 99285; G0480; J3535

== ENCOUNTER 2024-05-27 01:46 | Emergency (ER) | payer MEDICARE, OTHER ==
[~2024-05-27] VITALS: Ht 180.3 cm; Wt 90.9 kg
[~2024-05-27 01:46] MED LIST changes: -HALO5TAB23 PO
[2024-05-27 01:53] VITALS: BP 135/85; PULSE 91; RESP 20; TEMP 98; O2SAT 100
[2024-05-27] MEDS: HALOPERIDOL 5 MG TABLET PO ONE (02:03)
[2024-05-27] MEDS: OLANZapine 10 MG TABLET PO ONE (02:04)
== END 2024-05-27 03:13 | disposition home or self-care (01) ==
LOC: EMS 01:46
DX: F41.9 Anxiety disorder, unspecified (principal); F20.9 Schizophrenia, unspecified; F15.10 Other stimulant abuse, uncomplicated; J45.909 Unspecified asthma, uncomplicated; F17.210 Nicotine dependence, cigarettes, uncomplicated
CPT/HCPCS: 99283

== ENCOUNTER 2024-06-06 21:43 | Emergency (ER) | payer MEDICARE, OTHER ==
[~2024-06-06] VITALS: Ht 180.3 cm; Wt 90.9 kg
[2024-06-06 21:46] VITALS: BP 121/62; PULSE 108; RESP 16; TEMP 98; O2SAT 100
[2024-06-06] MEDS: OLANZapine 10 MG TABLET PO ONE (23:12)
[2024-06-06] MEDS: ALBUTEROL SULFATE HFA 90 MCG/PUFF 8 GM INHALER IH ONE (23:12)
== END 2024-06-06 21:53 | disposition home or self-care (01) ==
LOC: EMS 21:43
DX: F32.A Depression, unspecified (principal); F20.9 Schizophrenia, unspecified; J45.909 Unspecified asthma, uncomplicated; F15.90 Other stimulant use, unspecified, uncomplicated
CPT/HCPCS: 99283; 94640; J3535

== ENCOUNTER 2024-06-15 13:52 | Emergency (ER) | payer MEDICARE, OTHER ==
[~2024-06-15] VITALS: Ht 182.9 cm; Wt 95.0 kg
[2024-06-15 14:00] VITALS: BP 98/65; PULSE 115; RESP 16; TEMP 98.3; O2SAT 100
[2024-06-15 14:09] LABS: COVID AG,FIA SOURCE NASAL SWAB
[2024-06-15 14:33] LABS: INFLUENZA TYPE A NEGATIVE FOR TYPE A (NEGATIVE); INFLUENZA TYPE B NEGATIVE FOR TYPE B (NEGATIVE); SARS-COV2 (COVID) ANTIGEN,FIA Negative (Negative)
[2024-06-15] MEDS ORDERED: GuaiFENesin/D-METHORPHAN [SUGAR-FREE] 200-20MG/10 ML SYRUP UDCUP PO ONE (15:00)
[2024-06-15] MEDS ORDERED: OLAN10TA74 PO (15:04)
[2024-06-15] MEDS: ACETAMINOPHEN 500 MG TABLET PO ONE (15:12)
[2024-06-15] MEDS: IBUPROFEN 600 MG TABLET PO ONE (15:13)
[2024-06-15] MEDS ORDERED: GUAIFDM PO (15:33)
[2024-06-15] MEDS ORDERED: ACET-66 PO (15:33)
== END 2024-06-15 16:18 | disposition home or self-care (01) ==
LOC: EMS 13:52
DX: J06.9 Acute upper respiratory infection, unspecified (principal); J45.909 Unspecified asthma, uncomplicated; F20.9 Schizophrenia, unspecified; F15.10 Other stimulant abuse, uncomplicated; Z20.822 Contact with and (suspected) exposure to COVID-19; Z98.890 Other specified postprocedural states
CPT/HCPCS: 71045; 87804; 99284

== ENCOUNTER 2024-06-26 01:14 | Emergency (ER) | payer MEDICARE, OTHER ==
[~2024-06-26] VITALS: Ht 180.3 cm; Wt 90.9 kg
[~2024-06-26 01:14] MED LIST changes: +ACET-66 PO; +GUAIFDM PO
[2024-06-26 01:17] VITALS: BP 116/69; PULSE 101; RESP 18; TEMP 98.1; O2SAT 98
[2024-06-26] MEDS: OLANZapine 10 MG TABLET PO ONE (02:14)
[2024-06-26] MEDS: ALBUTEROL SULFATE HFA 90 MCG/PUFF 8 GM INHALER IH ONE (02:14)
[2024-06-26] MEDS ORDERED: OLAN10TA74 PO (02:17)
[2024-06-26] MEDS ORDERED: HALO5TAB23 PO (02:17)
== END 2024-06-26 03:00 | disposition home or self-care (01) ==
LOC: EMS 01:14
DX: J45.909 Unspecified asthma, uncomplicated (principal); Z76.0 Encounter for issue of repeat prescription; F20.9 Schizophrenia, unspecified
CPT/HCPCS: 99283; 94640; J3535

== ENCOUNTER 2024-07-07 13:50 | Emergency (ER) | payer MEDICARE, OTHER ==
[~2024-07-07] VITALS: Ht 180.3 cm; Wt 90.9 kg
[~2024-07-07 13:50] MED LIST changes: +HALO5TAB23 PO
[2024-07-07 13:53] VITALS: TEMP 98.5
[2024-07-07 15:15] VITALS: BP 126/68
[2024-07-07 15:30] VITALS: PULSE 97; RESP 18; O2SAT 93
[2024-07-07] MEDS: ALBUTEROL SULFATE HFA 90 MCG/PUFF 8 GM INHALER IH ONE (15:30)
[2024-07-07] MEDS ORDERED: ALBU18HF12 IH (15:57)
== END 2024-07-07 16:04 | disposition home or self-care (01) ==
LOC: EMS 13:53
DX: J45.909 Unspecified asthma, uncomplicated (principal); Z76.0 Encounter for issue of repeat prescription; F20.9 Schizophrenia, unspecified; Z79.899 Other long term (current) drug therapy
CPT/HCPCS: 99283; 94640; J3535

== ENCOUNTER → 2024-07-20 | Emergency (ER) | payer MEDICARE, OTHER | END | disposition left against medical advice (07) | LOC: EMS 15:25 | DX: Z53.21 Procedure and treatment not carried out due to patient leaving prior to being seen by health care provider (principal) ==

== ENCOUNTER 2024-07-21 20:23 | Emergency (ER) | payer MEDICARE, OTHER ==
[~2024-07-21] VITALS: Ht 180.3 cm; Wt 90.9 kg
[2024-07-21 20:27] VITALS: BP 140/64; PULSE 96; RESP 20; TEMP 97.7; O2SAT 100
== END 2024-07-21 22:13 | disposition left against medical advice (07) ==
LOC: EMS 20:23
DX: R44.3 Hallucinations, unspecified (principal); Z53.21 Procedure and treatment not carried out due to patient leaving prior to being seen by health care provider

== ENCOUNTER 2024-08-04 21:09 | Emergency (ER) | payer MEDICARE, OTHER ==
[~2024-08-04] VITALS: Ht 180.3 cm; Wt 100.0 kg
[2024-08-04 21:24] VITALS: BP 94/75; PULSE 120; RESP 16; TEMP 98.1; O2SAT 100
[2024-08-04] MEDS ORDERED: OLAN10TA74 PO (23:19)
[2024-08-04] MEDS: ALBUTEROL SULFATE HFA 90 MCG/PUFF 8 GM INHALER IH ONE (23:34)
[2024-08-04] MEDS: OLANZapine 10 MG TABLET PO ONE (23:34)
== END 2024-08-04 23:36 | disposition home or self-care (01) ==
LOC: EMS 21:15
DX: F20.9 Schizophrenia, unspecified (principal); J45.909 Unspecified asthma, uncomplicated; F15.90 Other stimulant use, unspecified, uncomplicated; Z76.0 Encounter for issue of repeat prescription; Z79.899 Other long term (current) drug therapy
CPT/HCPCS: 99283; 94640; J3535

== ENCOUNTER 2024-08-06 22:23 | Emergency (ER) | payer MEDICARE, OTHER ==
[~2024-08-06] VITALS: Ht 180.3 cm; Wt 79.5 kg
[2024-08-06 22:42] VITALS: BP 117/72; PULSE 99; RESP 19; TEMP 98.7; O2SAT 98
[2024-08-06] MEDS: OLANZapine 10 MG TABLET PO ONE (23:37)
== END 2024-08-06 23:38 | disposition home or self-care (01) ==
LOC: EMS 22:25
DX: F20.9 Schizophrenia, unspecified (principal); J45.909 Unspecified asthma, uncomplicated; Z79.899 Other long term (current) drug therapy
CPT/HCPCS: 99284; Z7502; Z7610

== ENCOUNTER 2024-08-14 06:36 | Emergency (ER) | payer MEDICARE, OTHER ==
[~2024-08-14] VITALS: Ht 180.3 cm; Wt 90.9 kg
[2024-08-14 06:37] VITALS: TEMP 98.6
[2024-08-14] MEDS: HALOPERIDOL 5 MG TABLET PO ONE (07:50)
[2024-08-14] MEDS: LORazepam 1 MG TABLET PO ONE (07:50)
[2024-08-14] MEDS: DiphenhydrAMINE HCL 25 MG CAPSULE PO ONE (07:50)
[2024-08-14] MEDS: BENZTROPINE MESYLATE 0.5 MG TABLET PO ONE (09:15)
[2024-08-14 10:45] VITALS: BP 138/71; PULSE 89; RESP 16; O2SAT 98
== END 2024-08-14 10:57 | disposition home or self-care (01) ==
LOC: EMS 06:37
DX: F25.9 Schizoaffective disorder, unspecified (principal); F15.10 Other stimulant abuse, uncomplicated; F17.210 Nicotine dependence, cigarettes, uncomplicated; J45.909 Unspecified asthma, uncomplicated; Z79.899 Other long term (current) drug therapy
CPT/HCPCS: 99284; Z7502; Z7610

== ENCOUNTER 2024-08-18 00:52 | Emergency (ER) | payer MEDICARE, OTHER ==
[~2024-08-18] VITALS: Ht 182.9 cm; Wt 90.9 kg
[2024-08-18 01:01] VITALS: BP 156/84; PULSE 116; RESP 16; TEMP 98.4; O2SAT 99
== END 2024-08-18 01:25 | disposition left against medical advice (07) ==
LOC: EMS 01:14
DX: F20.9 Schizophrenia, unspecified (principal); Z53.21 Procedure and treatment not carried out due to patient leaving prior to being seen by health care provider

== ENCOUNTER 2024-08-24 20:33 | Emergency (ER) | payer MEDICARE, OTHER ==
[~2024-08-24] VITALS: Ht 180.3 cm; Wt 90.9 kg
[2024-08-24 20:39] VITALS: TEMP 97.8
[2024-08-24] MEDS ORDERED: OLAN10TA74 PO (21:38)
[2024-08-24 22:00] VITALS: BP 123/70; PULSE 91; RESP 18; O2SAT 99
[2024-08-24] MEDS: OLANZapine 10 MG TABLET PO ONE (22:01)
[2024-08-24] MEDS: ALBUTEROL SULFATE HFA 90 MCG/PUFF 8 GM INHALER IH ONE (22:01)
== END 2024-08-24 22:04 | disposition home or self-care (01) ==
LOC: EMS 20:33
DX: J45.909 Unspecified asthma, uncomplicated (principal); F20.9 Schizophrenia, unspecified; F17.210 Nicotine dependence, cigarettes, uncomplicated; Z76.0 Encounter for issue of repeat prescription; Z79.899 Other long term (current) drug therapy
CPT/HCPCS: 99283; 94640; J3535

== ENCOUNTER 2024-09-14 04:13 | Emergency (ER) | payer MEDICARE, OTHER ==
[~2024-09-14] VITALS: Ht 180.3 cm; Wt 90.9 kg
[2024-09-14 04:37] VITALS: TEMP 97.8
[2024-09-14] MEDS: OLANZapine 10 MG TABLET PO ONE (04:45)
[2024-09-14] MEDS: ALBUTEROL SULFATE HFA 90 MCG/PUFF 8 GM INHALER IH ONE (04:49)
[2024-09-14 06:04] VITALS: BP 146/90; PULSE 107; RESP 20; O2SAT 100
== END 2024-09-14 06:33 | disposition home or self-care (01) ==
LOC: EMS 04:18
DX: F41.9 Anxiety disorder, unspecified (principal); F15.10 Other stimulant abuse, uncomplicated; J45.909 Unspecified asthma, uncomplicated; F20.9 Schizophrenia, unspecified; F17.210 Nicotine dependence, cigarettes, uncomplicated; Z79.899 Other long term (current) drug therapy
CPT/HCPCS: 99283; 94640; J3535

== ENCOUNTER 2024-09-19 03:49 | Emergency (ER) | payer MEDICARE, OTHER ==
[~2024-09-19] VITALS: Ht 177.8 cm; Wt 72.7 kg
[2024-09-19 03:53] VITALS: TEMP 97.9
[2024-09-19 04:07] VITALS: BP 134/75; PULSE 109; RESP 16; O2SAT 100
[2024-09-19] MEDS: OLANZapine 5 MG TABLET PO ONE (04:27)
== END 2024-09-19 05:15 | disposition home or self-care (01) ==
LOC: EMS 03:49
DX: F15.10 Other stimulant abuse, uncomplicated (principal); F25.0 Schizoaffective disorder, bipolar type; F17.210 Nicotine dependence, cigarettes, uncomplicated; J45.909 Unspecified asthma, uncomplicated; Z79.899 Other long term (current) drug therapy
CPT/HCPCS: 99284; Z7502; Z7610

== ENCOUNTER 2024-09-21 20:09 | Emergency (ER) | payer MEDICARE, OTHER ==
[~2024-09-21] VITALS: Ht 180.3 cm; Wt 90.9 kg
[2024-09-21 20:21] VITALS: BP 124/87; PULSE 122; RESP 16; TEMP 98; O2SAT 99
[2024-09-21 21:08] LABS: BASOPHILS % (AUTO) 0.6 % (0.0-2.0); EOSINOPHILS % (AUTO) 1.7 % (1.0-6.0); HEMATOCRIT 46.6 % (41-53); HEMOGLOBIN 15.6 g/dL (13.5-17.5); LYMPHOCYTES # (AUTO) 2.8 K/uL (1.0-4.8); LYMPHOCYTES % (AUTO) 20.3 % (22.0-44.0); MEAN CORPUSCULAR HEMOGLOBIN 30.4 pg (26.0-34.0); MEAN CORPUSCULAR HGB CONC 33.4 G/dL (31.0-37.0); MEAN CORPUSCULAR VOLUME 91 fL (80-100); MONOCYTES # (AUTO) 0.6 K/uL (0.1-1.0); MONOCYTES % (AUTO) 4.5 % (2.0-9.0); NEUTROPHILS # (AUTO) 10.2 K/uL (1.8-7.7); NEUTROPHILS % (AUTO) 72.9 % (40.0-70.0); PLATELET COUNT (AUTO) 365 K/uL (150-450); RED BLOOD CELL COUNT(AUTO) 5.13 MIL/uL (4.50-5.90); RED CELL DISTRIBUTION WIDTH 13.3 % (11.5-14.5)
[2024-09-21 21:23] LABS: ALCOHOL, BLOOD (SERUM) < 3 mg/dL (0-10)
[2024-09-21 21:24] LABS: CARBON DIOXIDE 27 mmol/L (22-29); CHLORIDE 104 mmol/L (98-107); SODIUM SERUM 140 mmol/L (136-145)
[2024-09-21 21:25] LABS: ANION GAP 9 mmol/L (8-16); CALCIUM, TOTAL 9.3 mg/dL (8.8-10.5); CREATININE 0.97 mg/dL (0.60-1.30); GLOMERULAR FILTR. RATE CALC > 60 mL/min (>60); GLUCOSE,RANDOM 115 mg/dL (70-110); UREA NITROGEN, BLOOD 9 mg/dL (7-18)
== END 2024-09-21 21:52 | disposition left against medical advice (07) ==
LOC: EMS 20:09
DX: R45.89 Other symptoms and signs involving emotional state (principal); Z53.21 Procedure and treatment not carried out due to patient leaving prior to being seen by health care provider
CPT/HCPCS: 36415; 80048; 85025; G0480

== ENCOUNTER 2024-09-21 22:49 | Emergency (ER) | payer MEDICARE, OTHER ==
[~2024-09-21] VITALS: Ht 180.3 cm; Wt 90.9 kg
[2024-09-21 22:53] VITALS: BP 138/85; PULSE 92; RESP 16; TEMP 98; O2SAT 100
[2024-09-22] MEDS: ALBUTEROL SULFATE HFA 90 MCG/PUFF 8 GM INHALER IH ONE (00:01)
== END 2024-09-22 00:26 | disposition home or self-care (01) ==
LOC: EMS 23:57
DX: F20.9 Schizophrenia, unspecified (principal); Z76.0 Encounter for issue of repeat prescription; J45.909 Unspecified asthma, uncomplicated; F17.210 Nicotine dependence, cigarettes, uncomplicated; F15.10 Other stimulant abuse, uncomplicated; Z79.899 Other long term (current) drug therapy
CPT/HCPCS: 99283; 94640; J3535

== ENCOUNTER 2024-09-24 12:49 | Emergency (ER) | payer MEDICARE, OTHER ==
[~2024-09-24] VITALS: Ht 180.3 cm; Wt 89.0 kg
[2024-09-24 13:00] VITALS: TEMP 97.6
[2024-09-24] MEDS ORDERED: SENN-374 PO (13:02)
[2024-09-24] MEDS ORDERED: OLAN10TA26 PO (13:02)
[2024-09-24] MEDS ORDERED: FLUT1BLS12 IH (13:02)
[2024-09-24] MEDS ORDERED: DOCU-412 PO (13:02)
[2024-09-24] MEDS ORDERED: DIPH-1237 PO (13:02)
[2024-09-24] MEDS ORDERED: ATOR10TA69 PO (13:02)
[2024-09-24] MEDS: OLANZapine 10 MG TABLET PO ONE (13:07)
[2024-09-24] MEDS: LORazepam 1 MG TABLET PO ONE (13:07)
[2024-09-24 17:27] VITALS: BP 120/90; PULSE 70; RESP 16; O2SAT 96
== END 2024-09-24 17:28 | disposition home or self-care (01) ==
LOC: EMS 12:51
DX: F20.0 Paranoid schizophrenia (principal); J45.909 Unspecified asthma, uncomplicated; F17.210 Nicotine dependence, cigarettes, uncomplicated; Z79.51 Long term (current) use of inhaled steroids; Z79.899 Other long term (current) drug therapy
CPT/HCPCS: 99284; Z7502; Z7610

== ENCOUNTER 2024-10-02 23:10 | Emergency (ER) | payer MEDICARE, OTHER ==
[~2024-10-02] VITALS: Ht 180.3 cm; Wt 90.9 kg
[~2024-10-02 23:10] MED LIST changes: -ACET-66 PO; +ATOR10TA69 PO; +DIPH-1237 PO; +DOCU-412 PO; +FLUT1BLS12 IH; -GUAIFDM PO; +OLAN10TA26 PO; -OLAN10TA74 PO; +SENN-374 PO
[2024-10-02 23:13] VITALS: BP 114/78; PULSE 110; RESP 18; TEMP 98.3; O2SAT 98
[2024-10-03] MEDS: OLANZapine 10 MG TABLET PO ONE (00:58)
[2024-10-03] MEDS: ALBUTEROL SULFATE HFA 90 MCG/PUFF 8 GM INHALER IH ONE (00:59)
== END 2024-10-03 01:46 | disposition home or self-care (01) ==
LOC: EMS 23:10
DX: F41.9 Anxiety disorder, unspecified (principal); Z76.0 Encounter for issue of repeat prescription; J45.909 Unspecified asthma, uncomplicated; F20.9 Schizophrenia, unspecified; F15.10 Other stimulant abuse, uncomplicated; F17.210 Nicotine dependence, cigarettes, uncomplicated; Z79.51 Long term (current) use of inhaled steroids; Z79.899 Other long term (current) drug therapy
CPT/HCPCS: 99283; 94640; J3535

== ENCOUNTER 2024-10-28 09:48 | Emergency (ER) | payer MEDICARE, OTHER ==
[~2024-10-28] VITALS: Ht 180.3 cm; Wt 81.8 kg
[2024-10-28 09:53] VITALS: BP 136/84; PULSE 96; RESP 18; TEMP 98; O2SAT 99
[2024-10-28] MEDS: OLANZapine 5 MG TABLET PO ONE (11:20)
[2024-10-28] MEDS: ALBUTEROL SULFATE HFA 90 MCG/PUFF 8 GM INHALER IH ONE (11:20)
[2024-10-28] MEDS ORDERED: OLAN10TA74 PO (11:27)
[2024-10-28] MEDS ORDERED: ALBU18HF12 IH (11:27)
== END 2024-10-28 11:48 | disposition home or self-care (01) ==
LOC: EMS 09:53
DX: J45.901 Unspecified asthma with (acute) exacerbation (principal); F41.9 Anxiety disorder, unspecified; F15.90 Other stimulant use, unspecified, uncomplicated; F20.9 Schizophrenia, unspecified; F17.210 Nicotine dependence, cigarettes, uncomplicated; Z98.890 Other specified postprocedural states; Z79.899 Other long term (current) drug therapy
CPT/HCPCS: 99283; 94640; J3535

== ENCOUNTER 2024-10-28 13:58 | Emergency (ER) | payer MEDICARE, OTHER ==
[~2024-10-28] VITALS: Ht 180.3 cm; Wt 81.8 kg
[~2024-10-28 13:58] MED LIST changes: +OLAN10TA74 PO
[2024-10-28 14:03] VITALS: BP 119/79; PULSE 88; RESP 20; TEMP 98.5; O2SAT 97
[2024-10-28] MEDS: haloperidoL 5 MG TABLET PO ONE (14:47)
== END 2024-10-28 16:44 | disposition home or self-care (01) ==
LOC: EMS 14:00
DX: F41.9 Anxiety disorder, unspecified (principal); J45.909 Unspecified asthma, uncomplicated; F20.9 Schizophrenia, unspecified; F17.210 Nicotine dependence, cigarettes, uncomplicated; F15.90 Other stimulant use, unspecified, uncomplicated; Z98.890 Other specified postprocedural states; Z79.899 Other long term (current) drug therapy
CPT/HCPCS: 99283

== ENCOUNTER 2024-10-30 21:45 | Emergency (ER) | payer MEDICARE, OTHER ==
[~2024-10-30] VITALS: Ht 180.3 cm; Wt 81.0 kg
[~2024-10-30 21:45] MED LIST changes: -ATOR10TA69 PO; -DIPH-1237 PO; -DOCU-412 PO; -FLUT1BLS12 IH; -HALO5TAB23 PO; -SENN-374 PO
[2024-10-30 21:49] VITALS: BP 120/80; PULSE 102; RESP 18; TEMP 97.9; O2SAT 98
[2024-10-30] MEDS ORDERED: CloNIDine HCL 0.1 MG TABLET PO ONE (23:15)
[2024-10-30] MEDS ORDERED: HALO5TAB23 PO (23:24)
[2024-10-30] MEDS ORDERED: ALBU18HF12 IH (23:24)
[2024-10-30] MEDS ORDERED: OLAN10TA74 PO (23:24)
[2024-10-30] MEDS: ALBUTEROL SULFATE HFA 90 MCG/PUFF 8 GM INHALER IH ONE (23:59)
[2024-10-30] MEDS: OLANZapine 10 MG TABLET PO ONE (23:59)
== END 2024-10-31 00:22 | disposition home or self-care (01) ==
LOC: EMS 21:48
DX: F41.9 Anxiety disorder, unspecified (principal); F15.90 Other stimulant use, unspecified, uncomplicated; J45.909 Unspecified asthma, uncomplicated; F20.9 Schizophrenia, unspecified; F17.210 Nicotine dependence, cigarettes, uncomplicated; Z79.899 Other long term (current) drug therapy
CPT/HCPCS: 99283; 94640; J3535

== ENCOUNTER 2024-12-02 19:07 | Emergency (ER) | payer MEDICARE, OTHER ==
[~2024-12-02] VITALS: Ht 180.3 cm; Wt 95.5 kg
[~2024-12-02 19:07] MED LIST changes: +HALO5TAB23 PO
[2024-12-02 19:23] VITALS: BP 121/75; PULSE 86; RESP 24; TEMP 97.5; O2SAT 100
[2024-12-02] MEDS ORDERED: OLAN10TA74 PO (20:49)
== END 2024-12-02 22:38 | disposition still patient (30) ==
LOC: EMS 19:09
DX: F15.10 Other stimulant abuse, uncomplicated (principal); J45.909 Unspecified asthma, uncomplicated; F20.9 Schizophrenia, unspecified; F17.210 Nicotine dependence, cigarettes, uncomplicated; Z98.890 Other specified postprocedural states; Z79.899 Other long term (current) drug therapy
CPT/HCPCS: 99283; 96372; J1630

== ENCOUNTER 2024-12-27 01:18 | Emergency (ER) | payer MEDICARE, OTHER ==
[~2024-12-27] VITALS: Ht 180.3 cm; Wt 93.2 kg
[2024-12-27 01:23] VITALS: BP 129/79; TEMP 97.9
[2024-12-27] MEDS ORDERED: OLAN10TA74 PO (02:11)
[2024-12-27] MEDS: ALBUTEROL SULFATE HFA 90 MCG/PUFF 8 GM INHALER IH ONE (02:15)
[2024-12-27] MEDS ORDERED: 0.9% SODIUM CHLORIDE 5 ML NEB SOLUTION NEB ONE (02:21)
[2024-12-27] MEDS: ALBUTEROL SULFATE 2.5 MG/0.5 ML NEB SOLUTION NEB ONE (02:23)
[2024-12-27 02:30] VITALS: PULSE 114; RESP 20; O2SAT 100
== END 2024-12-27 02:52 | disposition home or self-care (01) ==
LOC: EMS 01:21
DX: J45.909 Unspecified asthma, uncomplicated (principal); F20.9 Schizophrenia, unspecified; F17.210 Nicotine dependence, cigarettes, uncomplicated; F15.90 Other stimulant use, unspecified, uncomplicated; Z98.890 Other specified postprocedural states; Z79.899 Other long term (current) drug therapy; Z76.0 Encounter for issue of repeat prescription
CPT/HCPCS: 99283; 94640; J3535

== ENCOUNTER → 2025-01-19 | Emergency (ER) | payer MEDICARE, OTHER ==
[~2025-01-19] VITALS: Ht 180.3 cm; Wt 90.9 kg
[~2025-01-19] MED LIST changes: +CHOL25TA4 PO; -HALO5TAB23 PO; -OLAN10TA26 PO
[2025-01-19 11:35] VITALS: TEMP 98.9
[2025-01-19 12:15] VITALS: BP 132/71; PULSE 101; RESP 20; O2SAT 99
== END | disposition still patient (30) ==
LOC: EMS 11:24
DX: F41.9 Anxiety disorder, unspecified (principal); F25.9 Schizoaffective disorder, unspecified; J45.909 Unspecified asthma, uncomplicated; F17.210 Nicotine dependence, cigarettes, uncomplicated; F15.90 Other stimulant use, unspecified, uncomplicated; Z98.890 Other specified postprocedural states; Z79.899 Other long term (current) drug therapy
CPT/HCPCS: 99283; Z7502

== ENCOUNTER 2025-02-11 19:03 | Emergency (ER) | payer MEDICARE, OTHER ==
[~2025-02-11] VITALS: Ht 180.3 cm; Wt 90.9 kg
[2025-02-11 19:13] VITALS: BP 102/73; PULSE 98; RESP 18; TEMP 97.8; O2SAT 100
[2025-02-11] MEDS: OLANZapine 5 MG RAPDIS TABLET PO ONE (21:06)
[2025-02-11] MEDS: ALBUTEROL SULFATE HFA 90 MCG/PUFF 8 GM INHALER IH ONE (21:06)
== END 2025-02-11 21:22 | disposition home or self-care (01) ==
LOC: EMS 19:03
DX: F31.9 Bipolar disorder, unspecified (principal); F41.9 Anxiety disorder, unspecified; J45.909 Unspecified asthma, uncomplicated; F17.210 Nicotine dependence, cigarettes, uncomplicated; F20.9 Schizophrenia, unspecified; F15.90 Other stimulant use, unspecified, uncomplicated; Z79.899 Other long term (current) drug therapy; Z71.6 Tobacco abuse counseling
CPT/HCPCS: 99283; 99406; 94640; J3535

== ENCOUNTER → 2025-02-28 19:05 | Emergency (ER) | payer MEDICARE, OTHER | END | disposition left against medical advice (07) | LOC: EMS 19:05 | DX: Z76.0 Encounter for issue of repeat prescription (principal); Z53.21 Procedure and treatment not carried out due to patient leaving prior to being seen by health care provider ==

== ENCOUNTER 2025-03-02 11:16 | Emergency (ER) | payer MEDICARE, OTHER ==
[~2025-03-02] VITALS: Ht 180.3 cm; Wt 90.9 kg
[2025-03-02 11:20] VITALS: BP 93/61; PULSE 93; RESP 18; TEMP 97.7; O2SAT 98
[2025-03-02] MEDS ORDERED: ALBU18HF12 IH (11:58)
== END 2025-03-02 12:08 | disposition home or self-care (01) ==
LOC: EMS 11:27
DX: J45.909 Unspecified asthma, uncomplicated (principal); F25.0 Schizoaffective disorder, bipolar type; F15.90 Other stimulant use, unspecified, uncomplicated; F17.210 Nicotine dependence, cigarettes, uncomplicated; Z98.890 Other specified postprocedural states; Z79.899 Other long term (current) drug therapy; Z76.0 Encounter for issue of repeat prescription
CPT/HCPCS: 99282; Z7502

== ENCOUNTER 2025-03-07 11:06 | Emergency (ER) | payer MEDICARE, OTHER ==
[~2025-03-07] VITALS: Ht 180.3 cm; Wt 90.9 kg
[2025-03-07 11:13] VITALS: BP 98/70; PULSE 96; RESP 18; TEMP 97.5; O2SAT 97
== END 2025-03-07 13:41 | disposition left against medical advice (07) ==
LOC: EMS 11:15
DX: Z76.0 Encounter for issue of repeat prescription (principal); Z53.21 Procedure and treatment not carried out due to patient leaving prior to being seen by health care provider
CPT/HCPCS: 99281; Z7502

== ENCOUNTER 2025-03-16 12:08 | Emergency (ER) | payer MEDICARE, OTHER ==
[~2025-03-16] VITALS: Ht 180.3 cm; Wt 90.0 kg
[2025-03-16 12:30] VITALS: BP 106/74; PULSE 89; RESP 18; TEMP 98.1; O2SAT 98
[2025-03-16] MEDS ORDERED: OLAN10TA74 PO (12:59)
[2025-03-16] MEDS ORDERED: ALBU18HF12 IH (13:00)
[2025-03-16] MEDS: ALBUTEROL SULFATE HFA 90 MCG/PUFF 8 GM INHALER IH ONE (13:10)
== END 2025-03-16 13:53 | disposition home or self-care (01) ==
LOC: EMS 12:08
DX: F25.0 Schizoaffective disorder, bipolar type (principal); Z76.0 Encounter for issue of repeat prescription; F19.11 Other psychoactive substance abuse, in remission; J45.909 Unspecified asthma, uncomplicated; F17.210 Nicotine dependence, cigarettes, uncomplicated; F15.90 Other stimulant use, unspecified, uncomplicated; Z98.890 Other specified postprocedural states; Z79.899 Other long term (current) drug therapy
CPT/HCPCS: 99283; 94640; J3535

== ENCOUNTER 2025-03-28 15:56 | Emergency (ER) | payer MEDICARE, OTHER ==
[~2025-03-28] VITALS: Ht 180.3 cm; Wt 90.9 kg
[2025-03-28 16:00] VITALS: BP 113/72; PULSE 93; RESP 18; TEMP 97.9; O2SAT 100
[2025-03-28] MEDS: OLANZapine 5 MG RAPDIS TABLET PO ONE (16:59)
== END 2025-03-28 18:26 | disposition home or self-care (01) ==
LOC: EMS 15:56
DX: F41.9 Anxiety disorder, unspecified (principal); F25.0 Schizoaffective disorder, bipolar type; F15.10 Other stimulant abuse, uncomplicated; J45.909 Unspecified asthma, uncomplicated; F17.210 Nicotine dependence, cigarettes, uncomplicated; Z98.890 Other specified postprocedural states; Z79.899 Other long term (current) drug therapy
CPT/HCPCS: 99283

== ENCOUNTER 2025-04-08 10:21 | Emergency (ER) | payer MEDICARE, OTHER ==
[~2025-04-08] VITALS: Ht 180.3 cm; Wt 90.9 kg
[2025-04-08 10:32] VITALS: TEMP 98.2
[2025-04-08 11:00] LABS: PLATELET COUNT (AUTO) 287 K/uL (150-450); RED BLOOD CELL COUNT(AUTO) 4.77 MIL/uL (4.50-5.90); RED CELL DISTRIBUTION WIDTH 13.2 % (11.5-14.5); WHITE BLOOD COUNT (AUTO) 10.9 K/uL (4.5-11.0)
[2025-04-08] MEDS: LORazepam 2 MG/ML VIAL IM ONE (11:01)
[2025-04-08 11:08] LABS: CALCIUM, TOTAL 8.5 mg/dL (8.8-10.5); CREATININE 0.93 mg/dL (0.60-1.30); GLOMERULAR FILTR. RATE CALC > 60 mL/min (>60); GLUCOSE,RANDOM 99 mg/dL (70-110); SODIUM SERUM 141 mmol/L (136-145); UREA NITROGEN, BLOOD 3 mg/dL (7-18)
[2025-04-08 11:17] LABS: TROPONIN I-HIGH SENSITIVITY Less Than 4 ng/L (<76)
[2025-04-08 11:43] VITALS: PULSE 90; RESP 18; O2SAT 99
[2025-04-08] MEDS: IPRATROPIUM BROMIDE 0.5 MG/2.5 ML NEB SOLUTION NEB ONE (11:43)
[2025-04-08] MEDS: ALBUTEROL SULFATE 2.5 MG/0.5 ML NEB SOLUTION NEB ONE (11:43)
[2025-04-08 11:46] VITALS: BP 109/71; O2SAT 99
[2025-04-08 12:00] VITALS: PULSE 104; RESP 18; O2SAT 99
[2025-04-08] MEDS ORDERED: ALBU18HF12 IH (12:56)
== END 2025-04-08 12:20 | disposition home or self-care (01) ==
LOC: EMS 10:39
DX: F25.0 Schizoaffective disorder, bipolar type (principal); F15.20 Other stimulant dependence, uncomplicated; J45.901 Unspecified asthma with (acute) exacerbation; F17.210 Nicotine dependence, cigarettes, uncomplicated; Z79.899 Other long term (current) drug therapy
CPT/HCPCS: 99285; 71045; 80048; 84484; 85025; 94640; 93005; 96372; G0480; J2060; 36415-L1; 36415-TC; J7613

== ENCOUNTER 2025-04-10 08:51 | Emergency (ER) | payer MEDICARE, OTHER ==
[~2025-04-10] VITALS: Ht 180.3 cm; Wt 77.3 kg
[~2025-04-10 08:51] MED LIST changes: -CHOL25TA4 PO; -OLAN10TA74 PO
[2025-04-10 09:08] VITALS: TEMP 98.2
[2025-04-10] MEDS: ALBUTEROL SULFATE 2.5 MG/0.5 ML NEB SOLUTION NEB ONE (10:40)
[2025-04-10] MEDS: IPRATROPIUM BROMIDE 0.5 MG/2.5 ML NEB SOLUTION NEB ONE (10:40)
[2025-04-10 10:41] VITALS: PULSE 103; RESP 20; O2SAT 100
[2025-04-10 10:43] VITALS: PULSE 103; RESP 20; O2SAT 100
[2025-04-10] MEDS ORDERED: BUDE10.27 IH (11:37)
[2025-04-10] MEDS ORDERED: PRED-554 PO (11:37)
[2025-04-10 11:45] VITALS: BP 124/69; PULSE 109; RESP 25; O2SAT 100
== END 2025-04-10 12:21 | disposition home or self-care (01) ==
LOC: EMS 08:51
DX: J45.901 Unspecified asthma with (acute) exacerbation (principal); F31.9 Bipolar disorder, unspecified; F25.9 Schizoaffective disorder, unspecified
CPT/HCPCS: 99283; 94640; J7512; 94760

== ENCOUNTER 2025-04-17 11:12 | Emergency (ER) | payer MEDICARE, OTHER ==
[~2025-04-17] VITALS: Ht 180.3 cm; Wt 90.9 kg
[~2025-04-17 11:12] MED LIST changes: +BUDE10.27 IH; +PRED-554 PO
[2025-04-17 11:15] VITALS: TEMP 97.3
[2025-04-17] MEDS ORDERED: ALBU18HF12 IH (11:40)
[2025-04-17] MEDS ORDERED: PRED-554 PO (11:40)
[2025-04-17] MEDS: ALBUTEROL SULFATE 2.5 MG/0.5 ML NEB SOLUTION NEB ONE (11:51)
[2025-04-17] MEDS: IPRATROPIUM BROMIDE 0.5 MG/2.5 ML NEB SOLUTION NEB ONE (11:51)
[2025-04-17 11:52] VITALS: PULSE 98; RESP 20; O2SAT 97
[2025-04-17] MEDS: ALBUTEROL SULFATE HFA 90 MCG/PUFF 8 GM INHALER IH ONE (11:52)
[2025-04-17 11:56] VITALS: PULSE 98; RESP 20; O2SAT 97
[2025-04-17 12:09] VITALS: PULSE 78; RESP 18; O2SAT 99
[2025-04-17 12:51] VITALS: BP 114/78; PULSE 84; RESP 18; O2SAT 99
== END 2025-04-17 13:07 | disposition home or self-care (01) ==
LOC: EMS 11:12
DX: J45.901 Unspecified asthma with (acute) exacerbation (principal); F20.9 Schizophrenia, unspecified; F31.9 Bipolar disorder, unspecified; F17.210 Nicotine dependence, cigarettes, uncomplicated; F15.90 Other stimulant use, unspecified, uncomplicated; Z98.890 Other specified postprocedural states; Z79.51 Long term (current) use of inhaled steroids; Z79.52 Long term (current) use of systemic steroids; Z79.899 Other long term (current) drug therapy
CPT/HCPCS: 99283; 94640; J7512; J3535; 94060

== ENCOUNTER 2025-04-20 10:55 | Emergency (ER) | payer MEDICARE, OTHER ==
[~2025-04-20] VITALS: Ht 180.3 cm; Wt 86.4 kg
[2025-04-20 11:09] VITALS: TEMP 98.405312
[2025-04-20 11:32] LABS: PLATELET COUNT (AUTO) 386 K/uL (150-450); RED BLOOD CELL COUNT(AUTO) 5.06 MIL/uL (4.50-5.90); RED CELL DISTRIBUTION WIDTH 13.5 % (11.5-14.5); WHITE BLOOD COUNT (AUTO) 12.5 K/uL (4.5-11.0)
[2025-04-20 11:44] LABS: CALCIUM, TOTAL 9.0 mg/dL (8.8-10.5); CREATININE 0.99 mg/dL (0.60-1.30); GLOMERULAR FILTR. RATE CALC > 60 mL/min (>60); GLUCOSE,RANDOM 55 mg/dL (70-110); SODIUM SERUM 140 mmol/L (136-145); UREA NITROGEN, BLOOD 5 mg/dL (7-18)
[2025-04-20] MEDS: LORazepam 2 MG/ML VIAL IM ONE (12:03)
[2025-04-20 12:48] VITALS: BP 108/68; PULSE 87; RESP 18; O2SAT 99
[2025-04-20] MEDS ORDERED: OLAN10TA74 PO (14:30)
== END 2025-04-20 14:41 | disposition home or self-care (01) ==
LOC: EMS 11:00
DX: F25.9 Schizoaffective disorder, unspecified (principal); F31.9 Bipolar disorder, unspecified; J45.909 Unspecified asthma, uncomplicated; F17.210 Nicotine dependence, cigarettes, uncomplicated; F15.90 Other stimulant use, unspecified, uncomplicated; Z98.890 Other specified postprocedural states; Z79.51 Long term (current) use of inhaled steroids; Z79.52 Long term (current) use of systemic steroids; Z79.899 Other long term (current) drug therapy
CPT/HCPCS: 80048; 85025; 96372; 99284; G0480; J1200; J1630; J2060

== ENCOUNTER 2025-05-23 22:04 | Emergency (ER) | payer MEDICARE, OTHER ==
[~2025-05-23] VITALS: Ht 180.3 cm; Wt 90.9 kg
[~2025-05-23 22:04] MED LIST changes: +OLAN10TA74 PO
[2025-05-23 22:14] VITALS: TEMP 98.4
[2025-05-23] MEDS ORDERED: OLAN10TA74 PO (23:35)
[2025-05-23] MEDS ORDERED: ALBU18HF12 IH (23:35)
[2025-05-24] MEDS: ALBUTEROL SULFATE HFA 90 MCG/PUFF 8 GM INHALER IH ONE (00:10)
[2025-05-24 00:20] VITALS: BP 110/65; PULSE 90; RESP 18; O2SAT 98
== END 2025-05-24 00:20 | disposition home or self-care (01) ==
LOC: EMS 22:04
DX: J45.909 Unspecified asthma, uncomplicated (principal); F20.0 Paranoid schizophrenia; F31.9 Bipolar disorder, unspecified; F17.210 Nicotine dependence, cigarettes, uncomplicated; F15.90 Other stimulant use, unspecified, uncomplicated; Z98.890 Other specified postprocedural states; Z79.899 Other long term (current) drug therapy; Z79.51 Long term (current) use of inhaled steroids; Z79.52 Long term (current) use of systemic steroids; Z76.0 Encounter for issue of repeat prescription
CPT/HCPCS: 99283; 94640; J3535